=== PATIENT | female | born 1940 | race Caucasian/White ===

== ENCOUNTER → 2018-01-06 12:27 | Outpatient (CLI) | payer MEDICARE, SELFPAY ==
[2018-01-06 14:14] LABS: Absolute Lymphocyte Count 2.08 X10^3/ul (0.83-4.51); Absolute Neutrophil Count 6.2 X10^3/uL (2.0-7.7); Basophil# 0.02 X10^3/uL; Basophil% 0.2 % (0-1); Eosinophil# 0.22 X10^3/uL; Eosinophils% 2.3 % (0-5); Hematocrit 43.7 % (37-47); Hemoglobin 14.3 g/dl (12.0-15.0); Lymphocyte # 2.08 X10^3/ul (4.0); Lymphocyte % 22.2 % (19-41); Mean Corp Hgb Conc 32.7 g/gl (32-36); Mean Corpuscular Volume 94.8 fL (81-99); Mean Platelet Vol. 12.8 fl (6.2-12.0); Monocyte# 0.89 X10^3/uL; Monocyte% 9.5 % (0-10); Neutrophil # 6.17 X10^3/uL (2.7-7.7); Neutrophil % 65.7 % (47-70); Platelet Count 249 K/mm3 (150-450); RBC Distribution Width CV 14.8 % (11.6-14.6); RBC Distribution Width SD 49.4 fl (35.1-43.9); Red Blood Count 4.61 M/mm3 (4.2-5.4); White Blood Count 9.4 K/mm3 (4.4-11.0)
[2018-01-06 14:17] LABS: POSITIVE COUNT NO; POSITIVE DIFFERENTIAL NO; POSITIVE MORPHOLOGY NO
[2018-01-06 14:37] LABS: Albumin, Serum 3.6 g/dL (3.2-5.0)
== END ==
PROVIDERS: Family Provider Family Medicine; PCP Family Medicine; Visit Provider Specialist
DX: Z01.812 Encounter for preprocedural laboratory examination (principal); M16.12 Unilateral primary osteoarthritis, left hip; E11.9 Type 2 diabetes mellitus without complications
CPT/HCPCS: 36415; 82040; 85025

== ENCOUNTER 2018-02-14 08:56 | Inpatient (IN) | payer MEDICARE, SELFPAY ==
[2018-01-30 13:20] VITALS: BP 144/78; PULSE 73; RESP 16; TEMP 36.7; O2SAT 94; BMI 44.6
--- NOTE | 2018-01-30 13:32 | SDCEKG_ITS ---
Test Reason : Blood Pressure : / mmHG Vent. Rate : 058 BPM Atrial Rate : 058 BPM P-R Int : 156 ms QRS Dur : 124 ms QT Int : 436 ms P-R-T Axes : 051 -16 049 degrees QTc Int : 428 ms Sinus bradycardia Left ventricular hypertrophy with QRS widening Cannot rule out Septal infarct , age undetermined Abnormal ECG Confirmed by KOMAL CASTRO, RYAN ([id number]), editor managing director SYLVIA SHAFER ([id number] on 02/03/2018 1:34:19 PM Referred By: Vincent Melchor Confirmed By:RYAN SAUCEDA MD
[2018-01-30 14:18] LABS: Anion Gap 6 (5-15); BUN 21 mg/dL (7-18); BUN/Creat Ratio 26.2 RATIO (10-20); Calcium,Total 9.1 mg/dL (8.5-10.1); Chloride 109 mmol/L (98-107); EST Glomerular Filtration Rate 74 mL/min (>60); Est Glom Filt Rate - Afr Amer 89 mL/min (>60); Estimated Creatinine Clearance 50.85 ml/min; Glucose 131 mg/dL (74-106); Potassium 3.9 mmol/L (3.5-5.1); Sodium Level 141 mmol/L (136-145)
[2018-01-30 14:23] LABS: Hemoglobin A1c 7.3 % (4.2-6.3)
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
[2018-02-14] VITALS (10 sets, daily range): BP systolic 93–154; BP diastolic 58–106; PULSE 76–88; RESP 16–20; TEMP 35.8–36.4; O2SAT 91–97; BMI 44.6; BMI 43.9
--- NOTE | 2018-02-14 07:06 | RAD_ITS ---
STUDY: X-RAY - PELVIS AND LEFT HIP REASON FOR EXAM: Female, 77 years old. Postop TECHNIQUE: Radiological exam, hip, unilateral, with pelvis when performed; 2 or 3 views. COMPARISON: None. FINDINGS: There is a non-specific bowel gas pattern. Normal visualized soft tissue structures. Negative visualized pelvis. Bilateral total hip arthroplasties with a satisfactory appearance. RAD/Hip Min 2 Views (Portable) IMPRESSION: Satisfactory appearance of bilateral hip arthroplasties. Electronically Signed: Josemanuel Cárdenas MD at 15:35 EDT , Service support ,
[2018-02-14] MEDS: Celecoxib 200 MG Capsule 400 MG PO (09:42)
[2018-02-14] MEDS: oxyCODONE HCl Cr 10 MG Tablet PO (09:42)
[2018-02-14] MEDS: Acetaminophen 500 MG Tablet 1000 MG PO ×2 (09:43→22:27)
[2018-02-14 10:36] LABS: Bedside Glucose 164 mg/dL (70-110)
[2018-02-14] MEDS: Cefazolin 2 GM in 0.9% Normal Saline 100 ML IV (11:40)
--- NOTE | 2018-02-14 12:00 | RAD_ITS ---
STUDY: X-RAY - PELVIS AND LEFT HIP REASON FOR EXAM: Female, 77 years old. Intraoperative assessment TECHNIQUE: Two views of the pelvis and hip were obtained. COMPARISON: September 19, 2017 FINDINGS: There is a prosthesis in the proximal left femur. There is a prosthesis in the left acetabulum. There is adequate alignment of the prostheses. Air is present in the surrounding soft tissues. Fluoroscopy time 4.8 seconds. Cumulative dose 1.23 mGy. RAD/Hip 1 view with Pelvis IMPRESSION: Limited images were obtained intraoperatively during left hip arthroplasty. Electronically Signed: Annette Prather MD at 13:55 EDT Tel Direct: [phone], Service support ,
--- NOTE | 2018-02-14 13:31 | PCM.OPRPT ---
Report of Operation Date of Procedure: 02/14/18 Pre-Operative Diagnosis: Left hip primary osteoarthritis Post-Operative Diagnosis: Left hip primary osteoarthritis Surgery/Procedure Performed:: Left direct anterior total hip replacement Description of Surgical Findings:: Stable hip with equal leg lengths boat rental clerk: Delgado Ha Type of Anesthesia:: Spinal Anesthesiologist: Hudson Smith Special Medications: 2 g Ancef, 1 g TXA at incision, 1 g TXA closure, 10 mg Decadron, joint cocktail (5 mg Duramorph, 30 mL of 0.5% Ropivicaine, 1000 units of epinephrine, 30 mg of Toradol) Specimen's removed: Bony cuts Estimated Blood Loss (mL): 250 Fluids Replaced: 1000 mL crystalloid Description of Procedure: Components used: 1. Accolade 2 [place] femoral stem size 4 127? 2. Flip trident acetabular shell size 50 mm 3. Flip X3 polyethylene F 4. [place] Biolox delta 36mm, -5mm femoral head Brief history operative indications: 77 yo f who failed conservative measures for their hip osteoarthritis. X-rays were consistent with osteoarthritis including joint space narrowing, osteophyte formation and subchondral cysts. Total hip replacement was discussed with the patient with risks and benefits including but not limited to blood loss, DVTs, PEs, neurovascular damage, dislocation, general risks of anesthesia including loss of life. Patient demonstrated an understanding medical clearance is obtained the patient was consented for surgery. Procedure: On the date of procedure the patient's L hip was marked in the preoperative area. Patient was then taken back to the operating room where anesthesia assumed control of the C-spine and airway and administered anesthetic. Patient was transferred to the operating table and placed in the supine position. The hips were placed at the break of the bed and a sacral bump was placed. The L lower extremity was then prepped out in a sterile fashion using chlorhexidine while the surgeon scrubbed. The PA was vital in the positioning of the patient. Upon reentering the room the L lower extremity was draped in the standard orthopedic fashion and the incision was marked. A timeout was called and everyone agreed upon the side, the site, the procedure be performed, antibody given, and patient's identity. At this time incision was made through skin, subcutaneous tissue, and fat down to fascia. The fascia was then incised and the TFL was retracted laterally. A retractor was placed on the lateral border of the femoral neck. Attention was directed to the inferior portion of the approach and all crossing vessels were identified and appropriately coagulated. A retractor was then placed on the medial portion of the femoral neck. The anterior capsule was then cleared of all soft tissue and then H shaped capsulotomy was made. The retractors were then placed inside the capsule. The femoral neck was identified and a cleanup cut was made. At this time a power corkscrew was used to remove the femoral head. Attention was then turned toward the acetabulum where the soft tissues were appropriately retracted and the acetabulum was sequentially reamed to 49 mm. A 50 mm cup was then selected and impacted into place. Acetabular liner was impacted into place and locking mechanism was verified. The position of the acetabular cup was then verified under live fluoroscopy. Attention was then turned to the femur. Soft tissue releases on the medial and lateral femoral neck were appropriately done, the leg was externally rotated and lateralized. A Hoff retractor was placed medially and proximally to the greater trochanter this allowed appropriate visualization and exposure of the femoral canal. Rongeour was then used to remove excess lateral bone. A canal finder and entry broach were used to open the proximal canal. Once we verified we were down the femoral canal we subsequently broached up to a size 4 femur. The appropriate neck was placed in the previously selected head was trialed with a -5 mm neck. Traction was pulled and the hip was reduced with internal rotation. Once it was appropriately reduced and stability was checked. There was minimal shuck, equal leg lengths and appropriate stability with hyperextension and external rotation as well as with 90? flexion and internal rotation. Fluoroscopy was then also used to verify the position of the components and leg lengths using the contralateral side for comparison. The trial components were then dislocated the proximal femur was again exposed and the components were removed from the wound. The final components were verified and opened. The wound was copiously irrigated out with normal saline. The acetabulum was checked for any residual debris. The final components were placed and impacted. Traction and internal rotation were again used to reduce the hip. After adequate reduction the hip remained stable with appropriate leg lengths. The final components were once again checked with live fluoroscopy and were found to be satisfactory. The wound was then copiously irrigated with normal saline once more, and hemostasis was obtained. Closure was then done using #1 Vicryl runner to close the fascia. A 2-0 vicryl interuppted sutures were used to close the subcutaneous skin. A 3-0 Monocryl and Steri-Strips were used for final skin closure. A Silverlon dressing was placed. Patient was awakened by anesthesia and transferred to the [facility]. Patient was then transferred to the PACU for recovery. Postoperative plan: Patient will get 24 hours postop antibiotics. Patient will get in-house physical therapy and will be weight-bear as tolerated. Patient will follow up in office in 2 weeks for a wound check and x-rays. During the course of the procedure the physician retail assistant manager played a vital role. His intimate knowledge of my steps in the procedure aided in safe and expedient completion of the procedure. The PA played a vital rolls in positioning particularly in obtaining the appropriate positioning of the sacral bump. The PA was also vital in the retraction of soft tissues during the exposure and especially the femoral work as this is a vital part of the procedure to prevent complications and fractures. The PA was also vital and protecting soft tissues during times of bony cuts and reaming. He also played a vital role in closure with my direct supervision. The PA was also important during reduction and dislocation of the joint and trials intraoperatively. Grafts/Implants Used: [place] - Complications None - Admit VTE Documentation VTE Present on Admission: No VTE Mechan Device Prophylaxis: SCD's, Thigh High JORDIN Hose VTE Pharm Prophylaxis ordered?: Yes
[2018-02-14] MEDS: Bacitracin 500 UNITS/GM PACKET (13:51)
[2018-02-14 15:01] LABS: Bedside Glucose 220 mg/dL (70-110)
[2018-02-14] MEDS: Glimepiride 4 MG Tablet PO (17:24)
[2018-02-14] MEDS: Glucerna Shake 120 ML LIQUID PO (17:30)
[2018-02-14 17:55] LABS: Bedside Glucose 260 mg/dL (70-110)
[2018-02-14] MEDS: Lactated Ringers 1,000 ML 125 ML IV (19:27)
[2018-02-14] MEDS: Cefazolin 1 GM/50 ML BAG IV (20:04)
[2018-02-14] MEDS: Aspirin 325 MG Tablet PO (22:26)
[2018-02-14] MEDS: Oxybutynin 5 MG Tablet PO (22:26)
[2018-02-14] MEDS: Senna/Docusate Sodium 1 Tablet 2 TABLET PO (22:27)
[2018-02-14 22:41] LABS: Bedside Glucose 374 mg/dL (70-110)
[2018-02-15 02:48] VITALS: BP 136/70; PULSE 76; RESP 18; TEMP 36.5; O2SAT 97
[2018-02-15] MEDS: Cefazolin 1 GM/50 ML BAG IV (03:01)
[2018-02-15] MEDS: Lactated Ringers 1,000 ML 125 ML IV (04:18)
[2018-02-15] MEDS: Acetaminophen 500 MG Tablet 1000 MG PO ×2 (05:13→13:43)
[2018-02-15 05:55] LABS: Hematocrit 35.6 % (37-47); Hemoglobin 11.6 g/dl (12.0-15.0); Mean Corp Hgb Conc 32.6 g/gl (32-36); Mean Corpuscular Volume 95.2 fL (81-99); Mean Platelet Vol. 12.2 fl (6.2-12.0); Platelet Count 215 K/mm3 (150-450); RBC Distribution Width CV 14.1 % (11.6-14.6); RBC Distribution Width SD 47.2 fl (35.1-43.9); Red Blood Count 3.74 M/mm3 (4.2-5.4); White Blood Count 15.3 K/mm3 (4.4-11.0)
[2018-02-15 06:03] LABS: Scan Indicated on CBC? Y/N NO
[2018-02-15 06:25] LABS: Anion Gap 9 (5-15); BUN 24 mg/dL (7-18); Calcium,Total 8.5 mg/dL (8.5-10.1); Chloride 105 mmol/L (98-107); EST Glomerular Filtration Rate 57 mL/min (>60); Est Glom Filt Rate - Afr Amer 69 mL/min (>60); Estimated Creatinine Clearance 40.68 ml/min; Glucose 237 mg/dL (74-106); Potassium 4.4 mmol/L (3.5-5.1); Sodium Level 137 mmol/L (136-145)
--- NOTE | 2018-02-15 07:12 | PN.ORTHO_ITS ---
Subjective: The patient was sitting in bedside chair upon examination. Patient denies any chest pain, shortness of breath, dizziness, lightheadedness, nausea or vomiting , or calf pain. Pain is controlled on medications. No adverse overnight events. Overall patient is doing very well. Patient only complains of some achiness in the left thigh. Patient states she does wish to try to go home today if pain is controlled and tolerates physical therapy. Objective: Vital signs stable and afebrile. Patient is able to plantarflex and dorsiflex actively. Sensation is intact to light touch to saphenous, sural, superficial and deep peroneal, and tibial distribution. Dressing is clean dry and intact. Negative Homans bilaterally, negative signs and symptoms of DVT. - Physical Exam General: Alert, Oriented x3, Cooperative, No apparent distress Vital Signs Temp Pulse Resp BP Pulse Ox 97.7 F L 76 18 136/70 H 97 02/15/18 02:48 02/15/18 02:48 02/15/18 02:48 02/15/18 02:48 02/15/18 02:48 Oxygen Flow Rate (L/min) 2 Oxygen Delivery Method Room Air Weight: 116.12 kg Body Mass Index (BMI) 43.9 Finger Stick Blood Glucose 220 Intake and Output for Last 24 Hours 02/13/18 02/14/18 02/15/18 23:59 23:59 23:59 Intake Total 1850 / 1850 2262 / 2262 Balance 1849 / 1849 2262 / 2262 Laboratory Tests Past 24 Hrs 02/15/18 02/15/18 05:38 05:38 WBC 15.3 H RBC 3.74 L Hgb 11.6 L Hct 35.6 L MCV 95.2 MCH 31.0 MCHC 32.6 RDW 14.1 RDW Differential 47.2 H Plt Count 215 MPV 12.2 H Sodium 137 Potassium 4.4 Chloride 105 Carbon Dioxide 23.0 Anion Gap 9 BUN 24 H Creatinine 1.00 Estim Creat Clear Calc 40.68 Est GFR (MDRD) Af Amer 69 Est GFR (MDRD) Non-Af 57 L BUN/Creatinine Ratio 24.0 H Glucose 237 H Calcium 8.5 POC Glucose 02/14/18 02/14/18 02/14/18 22:33 17:22 14:53 POC Glucose 374 H 260 H 220 H 02/14/18 09:38 POC Glucose 164 H Medical Necessity - Tobacco Use Smoking Status: Never smoker Assessment/Plan 1. S/P direct anterior left total hip arthroplasty POD #1 2. Continue Pain Medications: Tylenol and OxyIR 3. DVT Prophylaxis: Aspirin 325 mg twice daily 4. PT/OT: Weightbearing as tolerated 5. H & H: 11.6/35.6, asymptomatic 6. Leukocytosis: Currently 15.3, afebrile. Patient did receive Decadron intraoperatively. 7. Encouraged Incentive Spirometry 8. Disposition: Orthopedically doing well. Patient pain has been well controlled. Plan will be for possible discharge home this afternoon if pain continues to be controlled and patient tolerates physical therapy. Prescriptions are attached to the chart. Patient will follow-up per postop instructions.
--- NOTE | 2018-02-15 07:15 | PCM.DC.THR ---
Discharge Diet: 1800 Calorie Control Diet Discharge Activity: May Not Drive - while taking narcotic pain medications. May shower in (days): 1 - Turned dressing away from water Ice area for (Minutes): 20 - Every 1-2 hours Weight Bearing Status: Weight bearing as tolerated Additional Activity Instructions:: Wear elastic stockings for 2 weeks. DO NOT use alcohol with narcotic pain medication. DO NOT make important decisions while taking narcotic medication. If you have problems with taking your medication (rash, itching, nausea, etc.) call the office at once. Call your doctor if your incision/area has: Increased Pain/ Swelling, Increased Redness, Foul Smelling Discharge Call your doctor if you observe: Fever of 101 or Higher Remove Dressing in (days):: 4 - Okay to change dressing on February 19, 2018 Additional Instructions: Follow-up per [facility] postop instructions Do not take baby aspirin while taking regular dose aspirin Do not take tramadol while taking oxycodone Allergies/Adverse Reactions: Allergies No Known Allergies Allergy (Verified 01/30/18 13:04) Medications to take at Discharge Glimepiride [Amaryl] 4 mg PO BID 01/30/18 L.acidoph,Paracasei, B.lactis [Probiotic] 1 each PO BID 01/30/18 Multivit with Calcium,Iron,Min [Multiple Vitamins For Women] 1 each PO DAILY 01/30/18 Oxybutynin [Ditropan] 5 mg PO BID 02/14/18 Acetaminophen [Tylenol] 1,000 mg PO Q8 #90 tab 02/15/18 Aspirin 325 mg PO BIDCM #30 tab 02/15/18 Famotidine [Pepcid] 20 mg PO DAILY #30 tab 02/15/18 Oxycodone [Oxyir] 5 - 10 mg PO Q4H PRN PRN 5 Days #60 tab 02/15/18 Senna/Docusate Sodium [Senokot-S] 2 tab PO BID #20 tab 02/15/18 The following prescriptions were given: Oxycodone [Oxyir] 5 - 10 mg PO Q4H PRN PRN 5 Days #60 tab PRN Reason: Mod-Severe Pain (4-08/30) Acetaminophen [Tylenol] 1,000 mg PO Q8 #90 tab Famotidine [Pepcid] 20 mg PO DAILY #30 tab Aspirin 325 mg PO BIDCM #30 tab Senna/Docusate Sodium [Senokot-S] 2 tab PO BID #20 tab Primary Care Physician: Tim Lozada MD [Primary Care Provider] - Please Follow Up With: home health physical therapy Please Follow Up With: Delgado Ha PA-C When: 02/27/18 @ 10:00 am
--- NOTE | 2018-02-15 07:19 | DCINST_ITS ---
Discharge Diet: 1800 Calorie Control Diet Discharge Activity: May Not Drive - while taking narcotic pain medications. May shower in (days): 1 - Turned dressing away from water Ice area for (Minutes): 20 - Every 1-2 hours Weight Bearing Status: Weight bearing as tolerated Additional Activity Instructions:: Wear elastic stockings for 2 weeks. DO NOT use alcohol with narcotic pain medication. DO NOT make important decisions while taking narcotic medication. If you have problems with taking your medication (rash, itching, nausea, etc.) call the office at once. Call your doctor if your incision/area has: Increased Pain/ Swelling, Increased Redness, Foul Smelling Discharge Call your doctor if you observe: Fever of 101 or Higher Remove Dressing in (days):: 4 - Okay to change dressing on February 19, 2018 Additional Instructions: Follow-up per [facility] postop instructions Do not take baby aspirin while taking regular dose aspirin Do not take tramadol while taking oxycodone Allergies/Adverse Reactions: Allergies No Known Allergies Allergy (Verified 01/30/18 13:04) Medications to take at Discharge Glimepiride [Amaryl] 4 mg PO BID 01/30/18 L.acidoph,Paracasei, B.lactis [Probiotic] 1 each PO BID 01/30/18 Multivit with Calcium,Iron,Min [Multiple Vitamins For Women] 1 each PO DAILY 11/07 Oxybutynin [Ditropan] 5 mg PO BID 02/14/18 Acetaminophen [Tylenol] 1,000 mg PO Q8 #90 tab 02/15/18 Aspirin 325 mg PO BIDCM #30 tab 02/15/18 Famotidine [Pepcid] 20 mg PO DAILY #30 tab 02/15/18 Oxycodone [Oxyir] 5 - 10 mg PO Q4H PRN PRN 5 Days #60 tab 02/15/18 Senna/Docusate Sodium [Senokot-S] 2 tab PO BID #20 tab 02/15/18 The following prescriptions were given: Oxycodone [Oxyir] 5 - 10 mg PO Q4H PRN PRN 5 Days #60 tab PRN Reason: Mod-Severe Pain (4-08/30) Acetaminophen [Tylenol] 1,000 mg PO Q8 #90 tab Famotidine [Pepcid] 20 mg PO DAILY #30 tab Aspirin 325 mg PO BIDCM #30 tab Senna/Docusate Sodium [Senokot-S] 2 tab PO BID #20 tab Primary Care Physician: Tim Lozada MD [Primary Care Provider] - Please Follow Up With: home health physical therapy Please Follow Up With: Delgado Ha PA-C When: 02/27/18 @ 10:00 am
[2018-02-15 07:20] LABS: Bedside Glucose 207 mg/dL (70-110)
[2018-02-15 08:18] VITALS: BP 139/48; PULSE 76; RESP 16; TEMP 36.9; O2SAT 98
[2018-02-15] MEDS: Oxybutynin 5 MG Tablet PO (08:25)
[2018-02-15] MEDS: Glimepiride 4 MG Tablet PO ×2 (08:25→17:57)
[2018-02-15] MEDS: Aspirin 325 MG Tablet PO ×2 (08:25→17:57)
[2018-02-15] MEDS: Senna/Docusate Sodium 1 Tablet 2 TABLET PO (08:25)
[2018-02-15] MEDS: Famotidine 20 MG Tablet PO (08:25)
[2018-02-15] MEDS: Glucerna Shake 120 ML LIQUID PO (08:27)
[2018-02-15] MEDS: Multivitamins,Ther W-Minerals Tablet 1 TABLET PO (11:29)
[2018-02-15 11:45] LABS: Bedside Glucose 165 mg/dL (70-110)
[2018-02-15 13:37] VITALS: BP 149/59; PULSE 61; RESP 18; TEMP 36.4; O2SAT 98
--- NOTE | 2018-02-15 14:00 | CASEMGMT ---
JOSE LUIS DORSEY received call from MARINE Ha regarding discharge plans. JOSE LUIS DORSEY updated MARINE Ha that patient plans to discharge home with outpatient therapy at home and that order was requested to be sent to [facility]. MARINE Ha requested that RN CM call [facility] to inquire when patient will be seen. RN WILLIAN called [facility] and talked with Sherrie. Sherrie stated that she attempted to call patient and left voicemail to setup appt. Sherrie states that they have an opening on 02/17/18 9am. This RN CM inquired with patient if that appt for outpatient therapy would work for her and patient agreed to appt. RN WILLIAN made appt with [facility] for 02/17/18 at 0900 to establish outpatient therapy. JOSE LUIS DORSEY called and left MARINE Ha to update on first therapy appt.
--- NOTE | 2018-02-15 15:38 | CASEMGMT ---
Addendum entered by Taryn Gusman 02/15/18 15:41: Time of assesment for 0941. Original Note: JOSE LUIS DORSEY Face to Face with patient for initial transition planning/care coordination assessment. JOSE LUIS DORSEY introduced self and role at [facility]. Patient sitting in chair, alert and oriented. Patient willing to participate in assessment and is able to answer all questions appropriately. Care providers, pharmacy, and demographics verified. See link attached. Patient wishes to discharge home and is requesting outpatient therapy at [facility] and to utilize [facility] transportation. JOSE LUIS DORSEY informed patient that she will request order from Dr. Melchor's office for outpatient therapy. Pt states she has no further needs or concerns at this time. JOSE LUIS DORSEY called [facility] and requested order be sent to [facility] for outpatient therapy. CM to follow for discharge planning needs that may arise. Disposition Plan: Patient to discharge home with outpatient therapy, family support, and follow-up plans in place.
[2018-02-15 16:21] LABS: Bedside Glucose 90 mg/dL (70-110)
--- NOTE | 2018-02-15 16:31 | NURSING ---
late entry- 1400- pt requesting to have scop patch removed- this RN removed and cleansed skin. Pt reported very dry mouth.
== END 2018-02-15 18:54 | disposition home or self-care (01) | DRG 470 ==
LOC: MS3 08:57
PROVIDERS: Admitting Provider Specialist; Family Provider Family Medicine; PCP Family Medicine; Visit Provider Specialist
PROC: 0SRB04A Replacement of Left Hip Joint with Ceramic on Polyethylene Synthetic Substitute, Uncemented, Open Approach (ICD-10-PCS; CPT 27284; principal; 2018-02-14 10:55)
DX: M16.12 Unilateral primary osteoarthritis, left hip (principal); E11.8 Type 2 diabetes mellitus with unspecified complications; Z79.84 Long term (current) use of oral hypoglycemic drugs
CPT/HCPCS: 36415; 73501; 73502; 76000; 80048; 82962; 83036; 85027; 87077; 87081; 97110; 97116; 97162; 97166; 97530; 97535; 99251; J7120; G0463

== ENCOUNTER → 2018-02-23 15:14 | Outpatient (CLI) | payer MEDICARE, SELFPAY ==
--- NOTE | 2018-02-23 15:17 | VDLE_ITS ---
Reason For Study: LEG SWELLING RIGHT LEFT CFV is compressible, spontaneous, phasic, GSV is normal. competent and demonstrates normal CFV is compressible, spontaneous, phasic, augmentation. competent, and demonstrates normal Procedure augmentation. Exam performed in department. FV is compressible, spontaneous, phasic, A preliminary report was called and/or faxed competent and demonstrates normal to Dr. Conway. augmentation. POP V is compressible, spontaneous, phasic, competent and demonstrates normal augmentation. T/P Trunk is compressible. PTV is compressible. LT PerV is compressible. Interpretation Summary Deep veins of the left lower extremity are patent and compressible segmentally. There is no evidence of left lower extremity deep vein thrombosis. Valvular competence appears intact within the proximal deep venous system on the left . The left greater saphenous vein appears patent and compressible segmentally. Ordering Physician: Pk Conway Referring Physician: Tim Lozada Performed By: Lacey Le RVT
== END ==
PROVIDERS: Family Provider Family Medicine; PCP Family Medicine; Visit Provider Family Medicine
DX: M79.89 Other specified soft tissue disorders (principal)
CPT/HCPCS: 93971

== ENCOUNTER → 2018-02-24 14:39 | Outpatient (CLI) | payer MEDICARE, SELFPAY | PROVIDERS: Family Provider Family Medicine; PCP Family Medicine; Visit Provider Family Medicine | DX: R19.7 Diarrhea, unspecified (principal) | CPT/HCPCS: 83630; 87177; 87209; 87493; 87506 ==

== ENCOUNTER 2018-05-03 09:30 | Outpatient (RCR) | payer MEDICARE, SELFPAY ==
--- NOTE | 2018-02-17 09:59 | HP.PTEVAL ---
Patient's Visit Information YECENIA LAZAR is a 77 year old F referred to Physical Therapy by MD CHARAN Mckinley with a diagnosis of L SREE. Date of Evaluation: 02/17/18 Physical Therapist: Rodolfo Powell PT, - Visit Plan Frequency: 2-3x /Week Duration: 4-6 Weeks Plan: L hip stretching and strengthening, balance and proprio, gait training, nustep, and HEP - Subjective Subjective: DOS: 02/14/18. Pt notes a chronic Hx of L hip pain for several years. Pt notes she is much more functional now and can walk much more upright secondary to having this surgery. No sleep diff with pain meds. No T or N in L LE. Pt reports she had a R SREE performed several years ago. Pt reports she lives with family. No steps in this house. 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 Pt reports her major goal is to be able to drive her grandkids to school [place]. 1/10 pain at rest, 6/10 at worst (walking fast). Pt has used a walker for the past couple years due to pain. No Hx of falls. - Pain L hip Pain Intensity (Out of 10): 1 Pain Intensity Range: 6 - Objective Neuro: B LE sensation is WNL to light touch. B pat tendon reflex= 1/3. ROM: L LE is moderately limited. MMT: R LE 5/5 throguhout. L LE 3/5 throughout and painful. Gait: Pt was able to walk from the waiting room to the treatment room approx 120' until having to rest. Pt uses a walker for AD. - Goals Goal 1:: Decrease L hip pain x 50% to aid with sleep Goal Time Frame: 4-6 Weeks Goal 2:: Increase L hip strength x 1 grade to aid with IADL's Goal Time Frame: 4-6 Weeks Goal 3:: Pt will be able to ambulate greater than 300 feet with LRD to aid with community ambulation Goal Time Frame: 4-6 Weeks Goal 4:: I with HEP Goal Time Frame: 4-6 Weeks - Rehabilitation Potential Physical Therapy Diagnosis: L hip pain, weakness, and limited gait distance secondary to L SREE Rehabilitation Potential: Good - Anticipated Interventions Patient/Client Instruction: Educate patient on: Condition, Plan of Care For the Purpose of:: To improve self management Therapeutic Exercise to Include: Strength training, Endurance training, Balance training, Gait and locomotor training, Dynamic Lumbar Stabilization For the Purpose of:: To decrease pain, To increase ROM, To improve muscle performance and motor function Cryotherapy (ice pack, ice massage): Yes For the Purpose of:: To decrease pain Thank you for the opportunity to evaluate your patient. For Medicare and Medicare HMO plans, please review the plan of care and approve it. It will need to be FAXED BACK to us at [phone] for Medicare purposes. Please let me know if there are questions or concerns regarding this plan of care. Physician Signature: Date:
--- NOTE | 2018-02-17 10:04 | HP.PTEVAL_ITS ---
Patient's Visit Information YECENIA LAZAR is a 77 year old F referred to Physical Therapy by MD CHARAN Mckinley with a diagnosis of L SREE. Date of Evaluation: 02/17/18 Physical Therapist: Rodolfo Powell PT, - Visit Plan Frequency: 2-3x /Week Duration: 4-6 Weeks Plan: L hip stretching and strengthening, balance and proprio, gait training, nustep, and HEP - Subjective Subjective: DOS: 02/14/18. Pt notes a chronic Hx of L hip pain for several years. Pt notes she is much more functional now and can walk much more upright secondary to having this surgery. No sleep diff with pain meds. No T or N in L LE. Pt reports she had a R SREE performed several years ago. Pt reports she lives with family. No steps in this house. 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 Pt reports her major goal is to be able to drive her grandkids to school [place]. 1 /10 pain at rest, 6/10 at worst (walking fast). Pt has used a walker for the past couple years due to pain. No Hx of falls. - Pain L hip Pain Intensity (Out of 10): 1 Pain Intensity Range: 6 - Objective Neuro: B LE sensation is WNL to light touch. B pat tendon reflex= 1/3. ROM: L LE is moderately limited. MMT: R LE 5/5 throguhout. L LE 3/5 throughout and painful. Gait: Pt was able to walk from the waiting room to the treatment room approx 120' until having to rest. Pt uses a walker for AD. - Goals Goal 1:: Decrease L hip pain x 50% to aid with sleep Goal Time Frame: 4-6 Weeks Goal 2:: Increase L hip strength x 1 grade to aid with IADL's Goal Time Frame: 4-6 Weeks Goal 3:: Pt will be able to ambulate greater than 300 feet with LRD to aid with community ambulation Goal Time Frame: 4-6 Weeks Goal 4:: I with HEP Goal Time Frame: 4-6 Weeks - Rehabilitation Potential Physical Therapy Diagnosis: L hip pain, weakness, and limited gait distance secondary to L SREE Rehabilitation Potential: Good - Anticipated Interventions Patient/Client Instruction: Educate patient on: Condition, Plan of Care For the Purpose of:: To improve self management Therapeutic Exercise to Include: Strength training, Endurance training, Balance training, Gait and locomotor training, Dynamic Lumbar Stabilization For the Purpose of:: To decrease pain, To increase ROM, To improve muscle performance and motor function Cryotherapy (ice pack, ice massage): Yes For the Purpose of:: To decrease pain Thank you for the opportunity to evaluate your patient. For Medicare and Medicare HMO plans, please review the plan of care and approve it. It will need to be FAXED BACK to us at [phone] for Medicare purposes. Please let me know if there are questions or concerns regarding this plan of care. Physician Signature: Date:
--- NOTE | 2018-06-28 07:36 | HP.PT.NRP ---
HP - Discharge Summary (1) - Patient Information YECENIA LAZAR was seen in my office for initial evaluation on 02/17/18. The following Plan of Care was established for this patient: Initial Frequency: 2-3x /Week Initial Duration: 4-6 Weeks - Anticipated Interventions Patient/Client Instruction: Educate patient on: Condition, Plan of Care For the Purpose of:: To improve self management Therapeutic Exercise to Include: Strength training, Endurance training, Balance training, Gait and locomotor training, Dynamic Lumbar Stabilization For the Purpose of:: To decrease pain, To increase ROM, To improve muscle performance and motor function Cryotherapy (ice pack, ice massage): Yes For the Purpose of:: To decrease pain This patient was last seen in our office . Pertinent comments regarding their Physical therapy will appear below: Pt cancelled her PT appt on the date of 05/17/18 secondary to illness, and has not returned through todays date. Pt is therefore discontinued at this time. At this point I will be discontinuing this patient from physical therapy. I would be happy to see this patient again in the future if found appropriate by the physician. Thank you! Rodolfo Powell, PT,
== END 2018-05-03 19:00 | disposition home or self-care (01) ==
LOC: PT 09:30
PROVIDERS: Family Provider Family Medicine; PCP Family Medicine; Visit Provider Specialist
DX: M16.12 Unilateral primary osteoarthritis, left hip (principal)
CPT/HCPCS: 97110; 97116; 97161; 97530

== ENCOUNTER → 2018-06-07 10:30 | Outpatient (CLI) | payer MEDICARE, SELFPAY ==
[2018-06-07 13:06] LABS: AST(SGOT) 20 U/L (15-37); Alanine Aminotransfer ALT/SGPT 17 U/L (13-56); Albumin, Serum 3.3 g/dL (3.2-5.0); Alkaline Phosphatase 103 U/L (45-117); Anion Gap 7 (5-15); BUN 20 mg/dL (7-18); BUN/Creat Ratio 22.9 RATIO (10-20); Bilirubin, Direct 0.06 mg/dL (0.00-0.30); Chloride 107 mmol/L (98-107); Cholesterol 194 mg/dL (200); Creatinine, Serum 0.87 mg/dL (0.55-1.02); EST Glomerular Filtration Rate 67 mL/min (>60); Est Glom Filt Rate - Afr Amer 81 mL/min (>60); Globulin 4.1 g/dL (2.2-4.2); Glucose 158 mg/dL (74-106); High Density Lipoprotein 53 mg/dL; Potassium 4.3 mmol/L (3.5-5.1); Protein, Total 7.4 g/dL (6.4-8.2); Sodium Level 141 mmol/L (136-145); Triglycerides 238 mg/dL; Very Low Density Lipoprotein 48 mg/dL (5-40)
[2018-06-07 13:15] LABS: Microalbumin,Random Urine 9.6 mg/L (NO RANGE EST.); Microalbumin:Creatinine Ratio 17.9 mg/g CRE (<30 mg/g CRE)
== END ==
PROVIDERS: Family Provider Family Medicine; PCP Family Medicine; Visit Provider Family Medicine
DX: E11.9 Type 2 diabetes mellitus without complications (principal)
CPT/HCPCS: 36415; 80048; 80061; 80076; 82043; 82570

== ENCOUNTER 2018-09-01 13:11 | Observation (INO) | payer MEDICARE, SELFPAY ==
[2018-09-01] VITALS (13 sets, daily range): BP systolic 134–180; BP diastolic 48–93; PULSE 70–91; RESP 14–20; TEMP 35–36.8; O2SAT 93–97; BMI 47.0; BMI 44.9
--- NOTE | 2018-09-01 14:28 | CT_ITS ---
STUDY: CT BRAIN WITHOUT CONTRAST REASON FOR EXAM: Female, 78 years old. TIA slurred speech status post fall RADIATION DOSAGE (If Supplied By Facility): CTDIvol = ( 44.99 ) mGy, DLP = ( 745.49 ) mGycm TECHNIQUE: Transaxial CT imaging of the brain was performed without administration of intravenous contrast material. Individualized dose optimization techniques were used for this CT. COMPARISON: None. FINDINGS: Normal soft tissue structures. Normal calvarium. There is mild cerebral atrophy with widening of the extra-axial spaces and ventricular dilatation. There are areas of decreased attenuation within the white matter tracts of the supratentorial brain, consistent with microvascular disease changes. Normal basal ganglia and thalami. Normal brainstem. There is mild cerebellar atrophy. There is no intracranial hemorrhage. There are no findings of an acute ischemic infarction. Normal visualized paranasal sinuses. CT/Brain/Head without Contrast IMPRESSION: Mild atrophy no visualized evidence of acute hemorrhage or infarct or edema. Electronically Signed: Meghan Gill MD at 16:17 EDT Tel , Service support ,
--- NOTE | 2018-09-01 14:28 | EKG12_ITS ---
Test Reason : NEURO S/SX Blood Pressure : / mmHG Vent. Rate : 082 BPM Atrial Rate : 082 BPM P-R Int : 160 ms QRS Dur : 142 ms QT Int : 412 ms P-R-T Axes : 050 003 147 degrees QTc Int : 481 ms Normal sinus rhythm with sinus arrhythmia Possible Left atrial enlargement Left bundle branch block Abnormal ECG Confirmed by KOMAL CASTRO, RYAN ([id number]), field map editor SYLVIA SHAFER ([id number]) on 09/04/2018 3:10:58 PM Referred By: YANA/WILEY Confirmed By:RYAN SAUCEDA MD
--- NOTE | 2018-09-01 14:28 | RAD_ITS ---
STUDY: X-RAY CHEST REASON FOR EXAM: Female, 78 years old. Pain TECHNIQUE: Single AP portable view of the chest. COMPARISON: None. FINDINGS: There is mild peribronchial thickening. There is interstitial thickening and small space lucency suspicious for possible emphysematous change. There is a 5.4 mm nodule in the left upper lobe. There is no demonstrated pleural abnormality. Normal size heart. Normal mediastinum and ishmael. Normal visualized pulmonary arteries. Normal visualized aortic arch and descending thoracic aorta. There are diffuse degenerative changes of the visualized thoracic spine. Normal visualized ribs, clavicles, and shoulders. There is no demonstrated abnormality of the visualized soft tissue structures of the upper abdomen. RAD/Chest 1 View IMPRESSION: Mild peribronchial thickening suggestive of possible central bronchiectasis and/or bronchitis. There is a least one indeterminate nodule within the left upper lobe that measures 5.4 mm. In comparison to prior study is recommended for consideration for follow-up noncontrast chest CT. Findings are suspicious for underlying chronic lung disease. Mild cardiomegaly. No definitive focal consolidation. Electronically Signed: Meghan Gill MD at 15:53 EDT Tel , Service support ,
[2018-09-01 14:30] LABS: Bedside Glucose 161 mg/dL (70-110)
[2018-09-01] MEDS: 0.9% Normal Saline 1,000 ML 100 ML IV (14:50)
[2018-09-01 15:16] LABS: Absolute Lymphocyte Count 2.34 X10^3/ul (0.83-4.51); Absolute Neutrophil Count 7.4 X10^3/uL (2.0-7.7); Basophil# 0.02 X10^3/uL; Basophil% 0.2 % (0-1); Eosinophil# 0.29 X10^3/uL; Eosinophils% 2.7 % (0-5); Hematocrit 41.8 % (37-47); Hemoglobin 13.2 g/dl (12.0-15.0); Lymphocyte # 2.34 X10^3/ul (4.0); Lymphocyte % 21.5 % (19-41); Mean Corp Hgb Conc 31.6 g/gl (32-36); Mean Corpuscular Hgb 29.8 pg (27.0-32.0); Mean Corpuscular Volume 94.4 fL (81-99); Monocyte# 0.76 X10^3/uL; Neutrophil # 7.44 X10^3/uL (2.7-7.7); Neutrophil % 68.4 % (47-70); Platelet Count 245 K/mm3 (150-450); RBC Distribution Width CV 14.8 % (11.6-14.6); RBC Distribution Width SD 50.6 fl (35.1-43.9); Red Blood Count 4.43 M/mm3 (4.2-5.4); White Blood Count 10.9 K/mm3 (4.4-11.0)
[2018-09-01 15:22] LABS: POSITIVE COUNT NO; POSITIVE DIFFERENTIAL NO; POSITIVE MORPHOLOGY NO
[2018-09-01 15:33] LABS: Prothrombin Time (Protime)PT. 13.5 SECONDS (11.7-14.9)
[2018-09-01 15:34] LABS: Partial Thromboplast Time 28.8 Seconds (24.1-36.2)
[2018-09-01 15:38] LABS: Anion Gap 6 (5-15); BUN 22 mg/dL (7-18); BUN/Creat Ratio 23.4 RATIO (10-20); Calcium,Total 9.2 mg/dL (8.5-10.1); Chloride 106 mmol/L (98-107); Creatinine, Serum 0.94 mg/dL (0.55-1.02); EST Glomerular Filtration Rate 61 mL/min (>60); Est Glom Filt Rate - Afr Amer 74 mL/min (>60); Glucose 170 mg/dL (74-106); Potassium 4.1 mmol/L (3.5-5.1); Sodium Level 139 mmol/L (136-145)
--- NOTE | 2018-09-01 15:43 | ED.RN ---
PER LAUREN CASTRO TO D/C [facility] AFTER THREE ZERO RESULTS.
--- NOTE | 2018-09-01 16:11 | ED.VISSUMM ---
- ER Visit Summary Date of Service: 09/01/18 Chief Complaint: [Paresthesias and speech difficulty] History of Present Illness: The patient is a 78 F [presents to the emergency department with complaint of paresthesias in her hands that is bilateral in which she has had for some time. 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 Patient's daughter is with her in the room and her concern was that patient had slurred speech this morning around 7:15 AM and she appear to have a right-sided facial droop. Patient herself states that she spent 20 minutes in the bedroom trying to get her bra on and just did not feel like her hands were working right. Patient denies any headache. Patient denies any falls other than she was leaning up against a chair this morning when it started to slide and she went down onto her knees and then turn herself onto her buttocks but she did not sustain any injury. Patient had to call EMS to help her up. At this time patient denies any focal weakness. Patient denies any visual changes. Slurred speech is mostly resolved now per family.] Physical Examination: [HEENT-PERRLA, EOMI. Cranial nerves II through XII grossly intact. TMs clear. Mucous membranes moist. No adenopathy. Cardiovascular-regular rate and rhythm without murmur or ectopy Lungs-clear to auscultation, chest wall stable without crepitus or subcu emphysema Abdomen-normoactive bowel sounds, soft, nontender, no rebound or rigidity, no peritoneal signs. Neuro thbg-flhkpa-ghvo and heel li testing within normal limits, negative Romberg, negative for drift, fundi benign. NIH stroke scale 0. Extremities-intact ?4, normal range of motion, normal pulses, atraumatic] Test Results: [CBC with differential obtained shows sinus rhythm with a left bundle branch block. Ventricular rate was 82 bpm. CBC with differential count of 10.9, hemoglobin 13, hematocrit 42, platelets 245. Chemistries unremarkable. INR was 1.0. Chest x-ray showed nothing acute. CT scan of the brain without contrast showed chronic changes nothing acute.] Emergency Department Course and Treatment: [] Treatment Plan: [Admit for further workup and evaluation of suspected TIA] Disposition: Admit [] Impression: [TIA] This note was generated with [employer] software. It may contain incorrect words, spelling, and punctuation that were not noted in review of the chart prior to signing ED Disposition - Plan for ED Patient: Chief Complaint: Neuro S/Sx Referrals: Tim Lozada MD [Primary Care Provider] -
--- NOTE | 2018-09-01 16:22 | PCM.HP.STD ---
Problem List (1) Hypertension Status: Chronic Qualifiers: Hypertension type: essential hypertension Qualified Code(s): I10 - Essential (primary) hypertension (2) Type II diabetes mellitus Status: Acute Qualifiers: Diabetes mellitus shelter insulin use: without shelter use Diabetes mellitus complication status: with unspecified complications Qualified Code(s): E11.8 - Type 2 diabetes mellitus with unspecified complications (3) Morbid obesity Status: Chronic (4) TIA (transient ischemic attack) Status: Acute History of Present Illness Date of Admission: 09/01/18 Chief Complaint: Slurred speech The patient is a 78 year old F with past medical history of type II DM, hypertension, obesity who comes in with complaints of slurred speech ongoing since this morning. Patient lives at home with her daughter and was noted to have slurred speech and right-sided facial droop at 7:15 AM. Patient was reluctant to come to the hospital. Denied any weakness in any part of her body. She typically ambulates with a wheeled walker. Denied any dizziness or chest pain or shortness of breath. Rales in the ED showed temperature of 90 7.8F, heart rate of 91, blood pressure was 180/92, improved to less than 139/48, respiratory rate was 18, SPO2 was 97% on room air CT scan of the head showed atrophy, no acute hemorrhage or infarct seen. Chest x-ray shows no acute cardiopulmonary process. EKG showed left bundle branch block which is new compared to her previous Admitting blood work was essentially unremarkable. Blood glucose was 170, troponins were negative Past Medical History Past Medical History (Chronic Problems): Chronic Problems Hypertension (Chronic) Morbid obesity (Chronic) Allergies No Known Allergies Allergy (Verified 09/01/18 13:14) Home Medications: Ambulatory Orders Medication Instructions Recorded Glimepiride [Amaryl] 4 mg PO BID 01/30/18 L.acidoph,Paracasei, B.lactis 1 each PO BID 01/30/18 [Probiotic] Multivit with Calcium,Iron,Min 1 each PO DAILY 01/30/18 [Multiple Vitamins For Women] Aspirin E.C. 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 Lives: With Family Smoking Status: Never smoker Tobacco Use: Non-smoker Alcohol: None Drugs: None - *Family History Maternal History Items: Dementia Paternal History Items: Cancer - Unknown etiology Review of Systems Constitutional: Denies: Anorexia, Chills, Fever, Malaise, Weakness, Weight Change Eyes: Denies: Blurred vision, Cataracts, Conjunctivae Inflammation, Pain, Redness, Vision Change HEENT: Denies: Difficulty Hearing, Difficulty Swallowing, Head Aches, Hearing Changes, Sinus Congestion, Sinus Drainage, Sore Throat Cardiovascular: Denies: Chest Pain, Claudication, Chest Pressure, Chest Tightness, Orthopnea, Palpitations, Paroxysmal Noc. Dyspnea Respiratory: Denies: Cough, Hemoptysis, Shortness of breath at rest, Shortness of breath upon exertion, Sputum production Gastrointestinal: Denies: Abdominal Pain, Hematemesis, Hematochezia, Nausea, Vomiting Genitourinary: Denies: Dysuria Musculoskeletal: Reports: Shoulder Pain. Denies: Joint Pain, Joint Tenderness Skin: Denies: Rash, Wounds Neurological: Denies: Numbness, Tingling, Focal weakness Psychiatric: Denies: Anxiety, Depression, Homicidal Ideations, Suicidal Ideations Hematologic/ Lymphatic: Denies: Easy Bruising, Easy Bleeding VTE Information - Inpt Only VTE Present on Admission: No VTE Pharm Prophylaxis ordered?: Yes Patient Problems: Active and Suspected Problems Type II diabetes mellitus (Acute) TIA (transient ischemic attack) (Acute) - Physical Exam General: Alert, Oriented x3, Cooperative, No apparent distress, - - Morbidly obese HEENT: Atraumatic, PERRLA, EOMI, Normocephalic Oral: Moist Mucosa Neck: Supple, No JVD, Negative Carotid Bruits Lungs: Clear to auscultation, Normal air movement Cardiovascular: Regular rate, Regular Rhythm, Normal S1, Normal S2, No murmurs Abdomen: Bowel Sounds Present, Soft, Non Tender, Non-Distended, No Hepato-splenomegaly Extremities: No edema Skin: No rashes, No breakdown Musculoskeletal: No Tenderness to Palpation of Joints or Extremities Lymphatic: No Cervical, Supraclavicular, or Inguinal Adenopathy Neurological: Cranial nerves II-XII grossly intact, Neuro grossly intact, Motor Exam 5/5 strength throughout - Except for tenderness over the right shoulder with Psych/Mental Status: Normal Affect, Appropriate Vital Signs Temp Pulse Resp BP Pulse Ox 97.8 F 71 20 H 139/48 H 94 09/01/18 13:12 09/01/18 15:28 18 15:28 09/01/18 15:28 09/01/18 15:28 Oxygen Delivery Method Room Air Weight: 120.5 kg Body Mass Index (BMI) 47.0 Finger Stick Blood Glucose 161 Laboratory Tests Past 24 Hrs 09/01/18 09/01/18 09/01/18 14:55 14:55 14:55 WBC 10.9 RBC 4.43 Hgb 13.2 Hct 41.8 MCV 94.4 MCH 29.8 MCHC 31.6 L RDW 14.8 H RDW Differential 50.6 H Plt Count 245 MPV 12.0 Immature Gran % (Auto) 0.200 Neut % (Auto) 68.4 Lymph % (Auto) 21.5 [place] % (Auto) 7.0 Eos % (Auto) 2.7 Baso % (Auto) 0.2 Absolute Neuts (auto) 7.4 Absolute Lymphs (auto) 2.34 Total Counted Not Reportable PT 13.5 INR 1.0 APTT 28.8 Sodium 139 Potassium 4.1 Chloride 106 Carbon Dioxide 27.0 Anion Gap 6 BUN 22 H Creatinine 0.94 Estim Creat Clear Calc 40.80 Est GFR (MDRD) Af Amer 74 Est GFR (MDRD) Non-Af 61 BUN/Creatinine Ratio 23.4 H Glucose 170 H Calcium 9.2 Troponin I < 0.015 POC Glucose 09/01/18 14:28 POC Glucose 161 H Assessment/Plan All Active Problems Type II diabetes mellitus (Acute) TIA (transient ischemic attack) (Acute) 78 year old F with past medical history of type II DM, hypertension, obesity who comes in with complaints of slurred speech ongoing since this morning. Patient lives at home with her daughter and was noted to have slurred speech and right-sided facial droop at 7:15 AM. 1. Acute onset of slurred speech, concerning for possible TIA in a patient with multiple risk factors, Initial CT of the brain was negative for acute hemorrhage or infarct Plan: Admit to PCU, monitor on telemetry, MRI of the brain, MRA of the head and neck, lipid profile, HbA1c, neurology consult, continue on home aspirin, add Plavix, 2D echo, PT, OT, ST, to evaluate and treat, follow-up with TIA protocol 2. Hypertension, controlled, continue medications, continue to monitor 3. Type 2 DM, on glimepiride, continue with Accu-Cheks, insulin sliding scale 4. Morbid obesity, BMI 47.1, weight loss, exercise is recommended 5. DVT Prophylaxis with Lovenox subcu Code Visit OBSV E&M: 37844 Initial observation care L3
--- NOTE | 2018-09-01 17:24 | MRI_ITS ---
STUDY: MRI BRAIN WITHOUT CONTRAST REASON FOR EXAM: Female, 78 years old. Slurred speech, right-sided weakness. TECHNIQUE: Standardized multiplanar fat and water weighted pulse sequences were obtained. COMPARISON: None. FINDINGS: Focal restricted diffusion is noted in the left parietal white matter consistent with acute white matter lacunar infarct. No additional area of acute ischemia is noted. There is no mass, mass effect or midline shift. There is no hemorrhage or territorial infarct. There is mild cerebral atrophy with widening of the extra-axial spaces and ventricular dilatation. There are multiple white matter hyperintensities, distributed throughout the deep white matter tracts of the cerebral hemispheres, consistent with moderate chronic white matter ischemic changes. Normal bilateral basal ganglia. Normal thalami. There is no extra-axial fluid accumulation. Normal flow voids within the major intracranial circulation suggesting patency by spin echo criteria. Normal sella turcica, pituitary gland, infundibular stalk, optic chiasm and hypothalamus. Normal tectal plate and pineal gland. Normal midbrain, charlie and medulla. Normal cerebellum. Normal basal cisterns. Normal bilateral temporal bones. Normal bilateral internal auditory canals. No demonstrated orbital abnormality, within the constraints of a routine brain study. Normal visualized paranasal sinuses. Normal calvarium and skull base. Normal visualized soft tissue structures. Normal visualized upper cervical spine. MRI/Brain without Contrast IMPRESSION: 1. Acute left parietal white matter lacunar infarct. 2. Chronic white matter ischemic changes. Atrophy. Electronically Signed: Gnéesis Marlow MD at 20:02 EDT Tel , Service support ,
--- NOTE | 2018-09-01 17:24 | MRI_ITS ---
STUDY: MRA OF THE HEAD WITHOUT CONTRAST REASON FOR EXAM: Female, 78 years old. Slurred speech. Right-sided weakness. TECHNIQUE: 3-D [id number] (TOF) imaging was performed with MIPs. The study was performed unenhanced. COMPARISON: None. FINDINGS: Normal bilateral petrous carotid arteries. Normal right cavernous carotid artery with a normal supraclinoid bifurcation. Normal left cavernous carotid artery with a normal supraclinoid bifurcation. Normal right A1 segments of the anterior cerebral artery. Normal left A1 segments of the anterior cerebral artery. Normal intact anterior communicating artery (ACOM). Normal bilateral A2 segments of the anterior cerebral arteries. Normal right M1 and M2 segments of the middle cerebral arteries, with a normal M1 bifurcation. Normal left M1 and M2 segments of the middle cerebral arteries, with a normal M1 bifurcation. Normal right posterior communicating artery (PCOM). There is non-visualization of the left posterior communicating artery (PCOM). Normal bilateral vertebral arteries. Normal basilar artery with a normal basilar bifurcation. The visualized bilateral superior cerebellar (SCA) arteries are normal. Normal bilateral P1, P2 and visualized P3 segments of the posterior cerebral arteries. There is no demonstrated aneurysm of the [place]. There is no major vessel occlusion or hemodynamically significant stenosis. There is no demonstrated abnormality of the visualized brain. MRI/MRA Head ONLY without Contrast IMPRESSION: Normal MRA of the head Electronically Signed: Génesis Marlow MD at 20:23 EDT Tel , Service support ,
--- NOTE | 2018-09-01 17:24 | ECHOD_ITS ---
Reason For Study: TIA/STROKE Procedure This was a 2D Doppler, Color Flow transthoracic echocardiogram. Exam performed portable in patient room. Left Ventricle Normal size and thickness. The estimated ejection fraction is 65 %. Stage 2 diastolic dysfunction. Right Ventricle Normal right ventricle. Atria The left atrium is mildly enlarged. Bubble contrast study negative for right to left interatrial shunt. Mitral Valve Moderate posterior annular calcification. Trivial mitral valve insufficiency. Tricuspid Valve Trivial tricuspid valve insufficiency. Aortic Valve Normal aortic valve. Pulmonic Valve The pulmonic valve is not well visualized. Great Vessels Aortic root not well visulaized. Pericardium/Pleural No pericardial effusion. Medication Performed a rapid injection of agitated mix of 9 cc saline and 1cc air to assess for atrial septal defect. MMode/2D Measurements & Calculations LVIDd: 4.2 cm IVSd: 1.1 cm LVOT diam: 2.0 cm LVIDs: 2.9 cm LVPWd: 0.80 cm LVOT area: 3.0 cm2 RVDd: 4.2 cm FS: 29.2 % Ao root diam: 3.0 cm LAV(MOD-sp4): 103.4 ml LA dimension: 3.9 cm LA A4 area: 28.1 cm2 RA A4 area: 16.3 cm2 Time Measurements MV dec time: 0.31 sec Doppler Measurements & Calculations MV E max jalen: 101.6 cm/sec Lat Peak E' Jalen: 8.5 cm/sec Med Peak E' Jalen: 4.0 cm/sec MV A max jalen: 148.0 cm/sec E/E' lat: 12.0 E/E' med: 25.4 MV E/A: 0.69 MV V2 max: 179.1 cm/sec MV P1/2t max jalen: 127.1 cm/sec Ao V2 max: 171.8 cm/sec MV max P.8 mmHg MV P1/2t: 77.0 msec Ao max P.8 mmHg MV V2 mean: 89.8 cm/sec MV dec slope: 483.5 cm/sec2 Ao V2 mean: 120.6 cm/sec MV mean P.8 mmHg MVA(P1/2t): 2.9 cm2 Ao mean P.5 mmHg MV V2 VTI: 44.9 cm Ao V2 VTI: 41.0 cm MVA(VTI): 2.3 cm2 LUDWIN(I,D): 2.5 cm2 LUDWIN(V,D): 2.4 cm2 LV V1 max: 137.5 cm/sec SV(LVOT): 104.5 ml PA V2 max: 134.9 cm/sec LV V1 max P.6 mmHg LV V1 mean P.1 mmHg LV V1 mean: 95.0 cm/sec LV V1 VTI: 34.6 cm TR max jalen: 322.8 cm/sec TR max P.7 mmHg Interpretation Summary The estimated ejection fraction is 65 %. Stage 2 diastolic dysfunction. The left atrium is mildly enlarged. Bubble contrast study negative for right to left interatrial shunt. Ordering Physician: Di Meeks Referring Physician: Vincent Melchor Performed By: Caleb Romero RCS
[2018-09-01 19:12] LABS: Hemoglobin A1c 7.7 % (4.2-6.3)
[2018-09-01] MEDS: Clopidogrel Bisulfate 75 MG Tablet PO (20:20)
[2018-09-01] MEDS: Glimepiride 4 MG Tablet PO (20:20)
[2018-09-01] MEDS: 0.9% NaCl Peripheral Flush Adult/Peds IV (20:20)
[2018-09-01] MEDS: Loperamide 2 MG Capsule PO (22:06)
[2018-09-01] MEDS: Insulin Lispro 100 UNIT/ML INSULN.PEN SQ (22:08)
[2018-09-01 22:56] LABS: Bedside Glucose 203 mg/dL (70-110)
[2018-09-02] VITALS (14 sets, daily range): BP systolic 112–144; BP diastolic 50–58; PULSE 68–86; RESP 16–20; TEMP 36.4–36.7; O2SAT 93–96; BMI 44.9
[2018-09-02 06:51] LABS: Bedside Glucose 117 mg/dL (70-110)
--- NOTE | 2018-09-02 07:34 | MRI_ITS ---
STUDY: MRA NECK WITH AND WITHOUT CONTRAST REASON FOR EXAM: Female, 78 years old. ABNORMAL MRI BRAIN, WAEKNESS. TECHNIQUE: 3-D [id number]-[id number] (TOF) imaging was performed in an 1.5 T MRI scanner. 10 ml of Gadavist was administered for the contrast enhanced images. COMPARISON: None. FINDINGS: Examination is degraded by motion artifact. RIGHT CAROTID ARTERIES: There is tortuous elongation of the right common carotid artery. There appears to be mild atherosclerotic plaque formation with minimal narrowing of the right carotid bulb. There appears to be mild atherosclerotic plaque formation of the origin of the right internal carotid artery with less than 50% cross sectional diameter stenosis. There is atherosclerotic tortuous elongation of the cervical portion of the right internal carotid artery. LEFT CAROTID ARTERIES: There is tortuous elongation of the left common carotid artery. There appears to be mild atherosclerotic plaque formation with minimal narrowing of the left carotid bulb. There appears to be mild atherosclerotic plaque formation of the origin of the left internal carotid artery with less than 50% cross sectional diameter stenosis. There is atherosclerotic tortuous elongation of the cervical portion of the left internal carotid artery. VERTEBRAL ARTERIES: Normal antegrade flow within the bilateral vertebral artery without a hemodynamically significant stenosis. MRI/MRA Neck WITH and W/O Contrast IMPRESSION: Limited examination. No demonstrated occlusion or significant stenosis. Mild atherosclerotic plaque. Further evaluation with sonography can be obtained. Electronically Signed: Marco Salas MD at 13:04 EDT Tel , Service support ,
[2018-09-02] MEDS: Glucerna Shake 120 ML LIQUID PO ×2 (07:47→11:32)
[2018-09-02] MEDS: Aspirin E.C. 81 MG Tablet PO (07:47)
[2018-09-02] MEDS: Glimepiride 4 MG Tablet PO ×2 (07:47→16:09)
[2018-09-02] MEDS: Clopidogrel Bisulfate 75 MG Tablet PO (09:16)
[2018-09-02] MEDS: LORazepam 1 MG Tablet PO (09:16)
[2018-09-02] MEDS: Enoxaparin 40 MG/0.4 ML Syringe SC (09:17)
[2018-09-02 09:23] LABS: Anion Gap 9 (5-15); BUN 18 mg/dL (7-18); BUN/Creat Ratio 23.3 RATIO (10-20); Calcium,Total 9.1 mg/dL (8.5-10.1); Chloride 107 mmol/L (98-107); Cholesterol 186 mg/dL (200); Creatinine, Serum 0.77 mg/dL (0.55-1.02); EST Glomerular Filtration Rate 77 mL/min (>60); Est Glom Filt Rate - Afr Amer 93 mL/min (>60); Estimated Creatinine Clearance 40.04 ml/min; Glucose 119 mg/dL (74-106); High Density Lipoprotein 53 mg/dL; Potassium 4.1 mmol/L (3.5-5.1); Sodium Level 143 mmol/L (136-145); Triglycerides 152 mg/dL; Very Low Density Lipoprotein 30 mg/dL (5-40)
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
[2018-09-02] MEDS: Insulin Lispro 100 UNIT/ML INSULN.PEN SQ ×2 (11:32→22:41)
[2018-09-02] MEDS: Multivitamins,Ther W-Minerals Tablet 1 TABLET PO (11:32)
[2018-09-02 12:00] LABS: Bedside Glucose 249 mg/dL (70-110)
--- NOTE | 2018-09-02 13:24 | CASEMGMT ---
JOSE LUIS DORSEY assessment: Face to Face with patient for initial transition planning/care coordination assessment. RN WILLIAN introduced self and role at [facility], pt voices understanding and consents to assessment at this time. Pt is sitting up in bed in no distress at this time. Pt is A/O x4 at this time and answers all questions appropriately at this time. Care providers, pharmacy, and demographics verified at this time. PCP: [facility] Specialists: Pt states currently has no specialists. Preferred Pharmacy: [facility] Insurance: [employer] Prescription Benefit: [employer] Living Will/HPOA: Pt states has LW/HPOA and daughter Carissa Carreon, but it is not on file at [facility] at this time. LNOK: Carissa Carreon, daughter; Swapna Truong, sister Living Arrangements: Pt states lives with daughter and her family in home and states no concerns at home at this time. Pt states has no stairs at home. Transportation: Pt states drives self and states no transportation concerns at this time. DME/HHC: Pt states has the following DME: shower chair, cane, walker, rollater, and walk-in shower. Pt states no need for any further DME at this time. Pt states has never had HHC in the past but did go to [facility] s/p hip surgery. Pt states no concerns with going home at time of discharge. Pt is agreeable to outpt therapy if PT/OT recommends. Pt states does not smoke or drink ETOH. Pt voices no further concerns/needs at this time. Advised pt to ask for CM if any further questions/concerns/needs arise, voices understanding. Order for outpt therapy left with Maki Perez RN with instructions, voices understanding. Plan: Home w/ outpt therapy [facility] JOSE LUIS DORSEY
--- NOTE | 2018-09-02 14:22 | PCM.PN.HOSP ---
Patient Problems: Active and Suspected Problems Type II diabetes mellitus (Acute) TIA (transient ischemic attack) (Acute) Stroke (Acute) Subjective: Patient was seen and examined. She feels improved. Still has right shoulder pain and unable to lift the right upper extremity. No acute events overnight He denies any dizziness or chest discomfort or worsening tingling or numbness. Objective: Physical Exam General: Alert, Oriented x3, Cooperative, No apparent distress, - - Morbidly obese HEENT: Atraumatic, PERRLA, EOMI, Normocephalic Oral: Moist Mucosa Neck: Supple, No JVD, Negative Carotid Bruits Lungs: Clear to auscultation, Normal air movement Cardiovascular: Regular rate, Regular Rhythm, Normal S1, Normal S2, No murmurs Abdomen: Bowel Sounds Present, Soft, Non Tender, Non-Distended, No Hepato-splenomegaly Extremities: No edema Skin: No rashes, No breakdown Musculoskeletal: No Tenderness to Palpation of Joints or Extremities Lymphatic: No Cervical, Supraclavicular, or Inguinal Adenopathy Neurological: Cranial nerves II-XII grossly intact, Neuro grossly intact, Motor Exam 5/5 strength throughout - Except for tenderness over the right shoulder with Psych/Mental Status: Normal Affect, Appropriate Vitals/I&O's: Vital Signs Temp Pulse Resp BP Pulse Ox 98.0 F 73 18 126/50 H 94 09/02/18 13:53 09/02/18 13:53 09/02/18 13:53 09/02/18 13:53 09/02/18 13:53 Oxygen Delivery Method Room Air Weight: 118.569 kg Body Mass Index (BMI) 44.9 Finger Stick Blood Glucose 161 Intake and Output for Last 24 Hours 08/31/18 09/01/18 09/02/18 23:59 23:59 23:59 Intake Total 1037 / 1037 716 / 716 Balance 1037 / 1037 716 / 716 Laboratory Results 09/01/18 14:28: POC Glucose 161 H 09/01/18 14:55: WBC 10.9, RBC 4.43, Hgb 13.2, Hct 41.8, MCV 94.4, MCH 29.8, MCHC 31.6 L, RDW 14.8 H, RDW Differential 50.6 H, Plt Count 245, MPV 12.0, Immature Gran % (Auto) 0.200, Neut % (Auto) 68.4, Lymph % (Auto) 21.5, [place] % (Auto) 7.0, Eos % (Auto) 2.7, Baso % (Auto) 0.2, Absolute Neuts (auto) 7.4, Absolute Lymphs (auto) 2.34, Total Counted Not Reportable 09/01/18 14:55: PT 13.5, INR 1.0, APTT 28.8 09/01/18 14:55: Sodium 139, Potassium 4.1, Chloride 106, Carbon Dioxide 27.0, Anion Gap 6, BUN 22 H, Creatinine 0.94, Estim Creat Clear Calc 40.80, Est GFR (MDRD) Af Amer 74, Est GFR (MDRD) Non-Af 61, BUN/Creatinine Ratio 23.4 H, Glucose 170 H, Calcium 9.2, Troponin I < 0.015 09/01/18 18:09: Hemoglobin A1c 7.7 H 09/01/18 18:09: Troponin I < 0.015 09/01/18 21:21: Troponin I < 0.015 09/01/18 22:03: POC Glucose 203 H 09/02/18 06:46: POC Glucose 117 H 09/02/18 08:40: Sodium 143, Potassium 4.1, Chloride 107, Carbon Dioxide 27.0, Anion Gap 9, BUN 18, Creatinine 0.77, Estim Creat Clear Calc 40.04, Est GFR (MDRD) Af Amer 93, Est GFR (MDRD) Non-Af 77, BUN/Creatinine Ratio 23.3 H, Glucose 119 H, Calcium 9.1, Triglycerides 152, Cholesterol 186, LDL Cholesterol 103, VLDL Cholesterol 30, HDL Cholesterol 53 09/02/18 11:28: POC Glucose 249 H Current Medications Acetaminophen (Tylenol) 650 mg PO Q6H PRN PRN PRN Reason: Mild Pain (1-3)/Temp > 100.7 F Aspirin (Ecotrin) 81 mg PO DAILY@0800 [facility] Last Admin: 09/02/18 07:47 Dose: 81 mg Atorvastatin Calcium (Lipitor) 40 mg PO QHS [facility] Cholecalciferol (Vitamin D) 5,000 unit PO DAILY [facility] Last Admin: 09/02/18 09:17 Dose: 5,000 unit Clopidogrel Bisulfate (Plavix) 75 mg PO DAILY [facility] Last Admin: 09/02/18 09:16 Dose: 75 mg Dextrose (D50w Syringe) 0 gm IV X1 PRN; Protocol PRN Reason: Hypoglycemia Enoxaparin Sodium (Lovenox) 40 mg SC DAILY@1000 [facility] Last Admin: 09/02/18 09:17 Dose: 40 mg Glimepiride (Amaryl) 4 mg PO BIDCM [facility] Last Admin: 09/02/18 07:47 Dose: 4 mg Glucagon () 1 mg IM .X1 PRN PRN Reason: Hypoglycemia Insulin Human Lispro (Humalog Kwikpen (Bkc)) 0 unit SQ ACHS [facility]; Protocol Last Admin: 09/02/18 11:32 Dose: 2 u Lactobacillus Acidophilus (Acidophilus) 1 tablet PO BID [facility] Last Admin: 09/02/18 07:47 Dose: 1 tablet Loperamide HCl (Imodium) 2 mg PO QHS [facility] Last Admin: 09/01/18 22:06 Dose: 2 mg Magnesium Hydroxide (Milk Of Magnesia) 30 ml PO DAILY PRN PRN Reason: Constipation Multivitamins/Minerals (Multivitamin With Minerals) 1 tablet PO DAILY@1200 [facility] Last Admin: 09/02/18 11:32 Dose: 1 tablet Ondansetron HCl (Zofran) 4 mg IV Q8H PRN PRN PRN Reason: NAUSEA Sodium Chloride () 5 - 30 ml IV UD PRN PRN Reason: SALINE FLUSH Last Admin: 09/01/18 20:20 Dose: 10 ml Medical Necessity - Tobacco Use Smoking Status: Never smoker Tobacco Use: Non-smoker Assessment/Plan All Active Problems Type II diabetes mellitus (Acute) TIA (transient ischemic attack) (Acute) Stroke (Acute) 78 year old F with past medical history of type II DM, hypertension, obesity who comes in with complaints of slurred speech ongoing since this morning. Patient lives at home with her daughter and was noted to have slurred speech and right-sided facial droop at 7:15 AM. 1. Acute onset of slurred speech, secondary to acute left parietal stroke, seen on MRI of the head, MRA head and neck unremarkable, Lipid profile shows total cholesterol 186, LDL 103 HDL 53 No events on telemetry. 2D echo shows EF of 65%, stage II diastolic dysfunction, bubble study negative Appreciate neurology consult On aspirin and Plavix, plan is for dual antiplatelets for 3 weeks then Plavix 75 mg p.o. daily We will wait for PT and OT evaluation 2. Hypertension, controlled, continue medications, continue to monitor 3. Type 2 DM, Hgb A1c 7.7, sugars are fairly controlled, on glimepiride, continue with Accu-Cheks, insulin sliding scale 4. Morbid obesity, BMI 47.1, weight loss, exercise is recommended 5. DVT Prophylaxis with Lovenox subcu Code Visit Inpatient E&M: 50432 Subs Hosp L2
--- NOTE | 2018-09-02 14:26 | PN_ITS ---
Patient Problems: Active and Suspected Problems Type II diabetes mellitus (Acute) TIA (transient ischemic attack) (Acute) Stroke (Acute) Subjective: Patient was seen and examined. She feels improved. Still has right shoulder pain and unable to lift the right upper extremity. No acute events overnight He denies any dizziness or chest discomfort or worsening tingling or numbness. Objective: Physical Exam General: Alert, Oriented x3, Cooperative, No apparent distress, - - Morbidly obese HEENT: Atraumatic, PERRLA, EOMI, Normocephalic Oral: Moist Mucosa Neck: Supple, No JVD, Negative Carotid Bruits Lungs: Clear to auscultation, Normal air movement Cardiovascular: Regular rate, Regular Rhythm, Normal S1, Normal S2, No murmurs Abdomen: Bowel Sounds Present, Soft, Non Tender, Non-Distended, No Hepato- splenomegaly Extremities: No edema Skin: No rashes, No breakdown Musculoskeletal: No Tenderness to Palpation of Joints or Extremities Lymphatic: No Cervical, Supraclavicular, or Inguinal Adenopathy Neurological: Cranial nerves II-XII grossly intact, Neuro grossly intact, Motor Exam 5/5 strength throughout - Except for tenderness over the right shoulder with Psych/Mental Status: Normal Affect, Appropriate Vitals/I&O's: Vital Signs Temp Pulse Resp BP Pulse Ox 98.0 F 73 18 126/50 H 94 09/02/18 13:53 09/02/18 13:53 09/02/18 13:53 09/02/18 13:53 09/02/18 13:53 Oxygen Delivery Method Room Air Weight: 118.569 kg Body Mass Index (BMI) 44.9 Finger Stick Blood Glucose 161 Intake and Output for Last 24 Hours 08/31/18 09/01/18 09/02/18 23:59 23:59 23:59 Intake Total 1037 / 1037 716 / 716 Balance 1037 / 1037 716 / 716 Laboratory Results 09/01/18 14:28: POC Glucose 161 H 09/01/18 14:55: WBC 10.9, RBC 4.43, Hgb 13.2, Hct 41.8, MCV 94.4, MCH 29.8, MCHC 31.6 L, RDW 14.8 H, RDW Differential 50.6 H, Plt Count 245, MPV 12.0, Immature Gran % (Auto) 0.200, Neut % (Auto) 68.4, Lymph % (Auto) 21.5, [place] % (Auto) 7.0, Eos % (Auto) 2.7, Baso % (Auto) 0.2, Absolute Neuts (auto) 7.4, Absolute Lymphs (auto) 2.34, Total Counted Not Reportable 09/01/18 14:55: PT 13.5, INR 1.0, APTT 28.8 09/01/18 14:55: Sodium 139, Potassium 4.1, Chloride 106, Carbon Dioxide 27.0, Anion Gap 6, BUN 22 H, Creatinine 0.94, Estim Creat Clear Calc 40.80, Est GFR (MDRD) Af Amer 74, Est GFR (MDRD) Non-Af 61, BUN/Creatinine Ratio 23.4 H, Glucose 170 H, Calcium 9.2, Troponin I < 0.015 09/01/18 18:09: Hemoglobin A1c 7.7 H 09/01/18 18:09: Troponin I < 0.015 09/01/18 21:21: Troponin I < 0.015 09/01/18 22:03: POC Glucose 203 H 09/02/18 06:46: POC Glucose 117 H 09/02/18 08:40: Sodium 143, Potassium 4.1, Chloride 107, Carbon Dioxide 27.0, Anion Gap 9, BUN 18, Creatinine 0.77, Estim Creat Clear Calc 40.04, Est GFR (MDRD) Af Amer 93, Est GFR (MDRD) Non-Af 77, BUN/Creatinine Ratio 23.3 H, Glucose 119 H, Calcium 9.1, Triglycerides 152, Cholesterol 186, LDL Cholesterol 103, VLDL Cholesterol 30, HDL Cholesterol 53 09/02/18 11:28: POC Glucose 249 H Current Medications Acetaminophen (Tylenol) 650 mg PO Q6H PRN PRN PRN Reason: Mild Pain (1-3)/Temp > 100.7 F Aspirin (Ecotrin) 81 mg PO DAILY@0800 [facility] Last Admin: 09/02/18 07:47 Dose: 81 mg Atorvastatin Calcium (Lipitor) 40 mg PO QHS [facility] Cholecalciferol (Vitamin D) 5,000 unit PO DAILY [facility] Last Admin: 09/02/18 09:17 Dose: 5,000 unit Clopidogrel Bisulfate (Plavix) 75 mg PO DAILY [facility] Last Admin: 09/02/18 09:16 Dose: 75 mg Dextrose (D50w Syringe) 0 gm IV X1 PRN; Protocol PRN Reason: Hypoglycemia Enoxaparin Sodium (Lovenox) 40 mg SC DAILY@1000 [facility] Last Admin: 09/02/18 09:17 Dose: 40 mg Glimepiride (Amaryl) 4 mg PO BIDCM [facility] Last Admin: 09/02/18 07:47 Dose: 4 mg Glucagon () 1 mg IM .X1 PRN PRN Reason: Hypoglycemia Insulin Human Lispro (Humalog Kwikpen (Bkc)) 0 unit SQ ACHS [facility]; Protocol Last Admin: 09/02/18 11:32 Dose: 2 u Lactobacillus Acidophilus (Acidophilus) 1 tablet PO BID [facility] Last Admin: 09/02/18 07:47 Dose: 1 tablet Loperamide HCl (Imodium) 2 mg PO QHS [facility] Last Admin: 09/01/18 22:06 Dose: 2 mg Magnesium Hydroxide (Milk Of Magnesia) 30 ml PO DAILY PRN PRN Reason: Constipation Multivitamins/Minerals (Multivitamin With Minerals) 1 tablet PO DAILY@1200 [facility] Last Admin: 09/02/18 11:32 Dose: 1 tablet Ondansetron HCl (Zofran) 4 mg IV Q8H PRN PRN PRN Reason: NAUSEA Sodium Chloride () 5 - 30 ml IV UD PRN PRN Reason: SALINE FLUSH Last Admin: 09/01/18 20:20 Dose: 10 ml Medical Necessity - Tobacco Use Smoking Status: Never smoker Tobacco Use: Non-smoker Assessment/Plan All Active Problems Type II diabetes mellitus (Acute) TIA (transient ischemic attack) (Acute) Stroke (Acute) 78 year old F with past medical history of type II DM, hypertension, obesity who comes in with complaints of slurred speech ongoing since this morning. Patient lives at home with her daughter and was noted to have slurred speech and right- sided facial droop at 7:15 AM. 1. Acute onset of slurred speech, secondary to acute left parietal stroke, seen on MRI of the head, MRA head and neck unremarkable, Lipid profile shows total cholesterol 186, LDL 103 HDL 53 No events on telemetry. 2D echo shows EF of 65%, stage II diastolic dysfunction, bubble study negative Appreciate neurology consult On aspirin and Plavix, plan is for dual antiplatelets for 3 weeks then Plavix 75 mg p.o. daily We will wait for PT and OT evaluation 2. Hypertension, controlled, continue medications, continue to monitor 3. Type 2 DM, Hgb A1c 7.7, sugars are fairly controlled, on glimepiride, continue with Accu-Cheks, insulin sliding scale 4. Morbid obesity, BMI 47.1, weight loss, exercise is recommended 5. DVT Prophylaxis with Lovenox subcu Code Visit Inpatient E&M: 25308 Subs Hosp L2
--- NOTE | 2018-09-02 15:15 | RAD_ITS ---
STUDY: X-RAY - RIGHT SHOULDER REASON FOR EXAM: Female, 78 years old. Right shoulder pain. TECHNIQUE: 4 view(s) of the shoulder. COMPARISON: None. FINDINGS: There is no acute fracture or dislocation. Glenohumeral joint is intact. There is mild spurring of the greater tuberosity. There is marked osteoarthrosis of the acromioclavicular joint. Well-corticated bone fragments suggest remote, healed fracture. Soft tissues and bony structures are otherwise unremarkable. Demonstrated right lung is clear. RAD/Shoulder min 2 Views IMPRESSION: 1. No acute process. 2. Acromioclavicular osteoarthrosis. Electronically Signed: Génesis Marlow MD at 16:46 EDT Tel , Service support ,
[2018-09-02 16:51] LABS: Bedside Glucose 143 mg/dL (70-110)
[2018-09-02] MEDS: Atorvastatin Calcium 40 MG Tablet PO (22:41)
[2018-09-02] MEDS: Loperamide 2 MG Capsule PO (22:41)
[2018-09-02 23:00] LABS: Bedside Glucose 184 mg/dL (70-110)
[2018-09-03] VITALS (7 sets, daily range): BP systolic 129–152; BP diastolic 60–68; PULSE 73–98; RESP 16–18; TEMP 36.2–36.9; O2SAT 91–96; BMI 44.9
[2018-09-03 07:10] LABS: Bedside Glucose 145 mg/dL (70-110)
[2018-09-03] MEDS: Aspirin E.C. 81 MG Tablet PO (09:11)
[2018-09-03] MEDS: Glimepiride 4 MG Tablet PO (09:11)
[2018-09-03] MEDS: Clopidogrel Bisulfate 75 MG Tablet PO (09:12)
[2018-09-03] MEDS: Enoxaparin 40 MG/0.4 ML Syringe SC (09:14)
--- NOTE | 2018-09-03 10:56 | DS.PCM_ITS ---
Discharge Date and Diagnosis Date of Admission: 09/01/18 Date of Discharge: 09/05/18 - Primary Discharge Diagnosis Active and Suspected Problems Stroke (Acute) - Secondary Discharge Diagnosis Chronic Problems Hypertension (Chronic) Morbid obesity (Chronic) Hospital Course and Treatment Imaging Results: Clinical Impression(s) from Imaging Studies Brain CT 09/01/18 14:28 IMPRESSION: Mild atrophy no visualized evidence of acute hemorrhage or infarct or edema. Electronically Signed: Meghan Gill MD at 16:17 EDT Tel , Service support , Chest X-Ray 09/01/18 14:28 IMPRESSION: Mild peribronchial thickening suggestive of possible central bronchiectasis and/or bronchitis. There is a least one indeterminate nodule within the left upper lobe that measures 5.4 mm. In comparison to prior study is recommended for consideration for follow-up noncontrast chest CT. Findings are suspicious for underlying chronic lung disease. Mild cardiomegaly. No definitive focal consolidation. Electronically Signed: Meghan Gill MD at 15:53 EDT Tel , Service support , Brain MRI 09/01/18 17:24 IMPRESSION: 1. Acute left parietal white matter lacunar infarct. 2. Chronic white matter ischemic changes. Atrophy. Electronically Signed: Génesis Marlow MD at 20:02 EDT Tel , Service support , Head MRA 09/01/18 17:24 IMPRESSION: Normal MRA of the head Electronically Signed: Génesis Marlow MD at 20:23 EDT Tel , Service support , Neck MRA 09/02/18 07:34 IMPRESSION: Limited examination. No demonstrated occlusion or significant stenosis. Mild atherosclerotic plaque. Further evaluation with sonography can be obtained. Electronically Signed: Marco Salas MD at 13:04 EDT Tel , Service support , Shoulder X-Ray 09/02/18 15:15 IMPRESSION: 1. No acute process. 2. Acromioclavicular osteoarthrosis. Electronically Signed: Génesis Marlow MD at 16:46 EDT Tel , Service support , Neurology Operations: None Procedures: 2-D Echocardiogram Summary of Care Provided: 78 year old F with past medical history of type II DM, hypertension, obesity who comes in with complaints of slurred speech ongoing on the day of admission. Patient lives at home with her daughter and family and was noted to have slurred speech and right-sided facial droop at 7:15 AM. She had difficulty wearing her bra and clothes. She was reluctant to be brought into the emergency room. Initial CT scan of the head showed no acute changes. Patient was admitted to telemetry bed, MRI of the brain showed acute left parietal stroke, MRA of the head and neck was unremarkable. Lipid profile showed total cholesterol 186, LDL 103 HDL 53. 2D echo showed EF of 55%, stage II diastolic dysfunction, bubble study was negative. Neurology was consulted. Patient was managed on aspirin and Plavix. The plan was for dual antiplatelets for 3 weeks then Plavix 75 mg p.o. daily. Patient was seen by PT and OT and outpatient therapy was recommended. Patient was discharged to have a 30-day event monitor. Subjective: Patient was seen and examined on the day of discharge. No complaints. Eager to be discharged. Telemetry showed no events. Objective: Physical Exam General: Alert, Oriented x3, Cooperative, No apparent distress, - - Morbidly obese HEENT: Atraumatic, PERRLA, EOMI, Normocephalic Oral: Moist Mucosa Neck: Supple, No JVD, Negative Carotid Bruits Lungs: Clear to auscultation, Normal air movement Cardiovascular: Regular rate, Regular Rhythm, Normal S1, Normal S2, No murmurs Abdomen: Bowel Sounds Present, Soft, Non Tender, Non-Distended, No Hepato- splenomegaly Extremities: No edema Skin: No rashes, No breakdown Musculoskeletal: No Tenderness to Palpation of Joints or Extremities Lymphatic: No Cervical, Supraclavicular, or Inguinal Adenopathy Neurological: Cranial nerves II-XII grossly intact, Neuro grossly intact, Motor Exam 5/5 strength throughout - Except for tenderness over the right shoulder with Psych/Mental Status: Normal Affect, Appropriate - Physical Exam Vital Signs Temp Pulse Resp BP Pulse Ox 98.5 F 85 18 129/67 H 94 09/03/18 09:09 09/03/18 09:09 09/03/18 09:09 09/03/18 09:09 09/03/18 09:09 Oxygen Delivery Method Room Air Weight: 118.569 kg Body Mass Index (BMI) 44.9 Finger Stick Blood Glucose 161 Intake and Output for Last 24 Hours 09/01/18 09/02/18 09/03/18 23:59 23:59 23:59 Intake Total 1037 / 1037 1056 / 1056 600 / 600 Balance 1037 / 1037 1056 / 1056 600 / 600 POC Glucose 09/03/18 09/02/18 09/02/18 06:50 22:36 16:05 POC Glucose 145 H 184 H 143 H 09/02/18 11:28 POC Glucose 249 H Discharge Diet: Low fat/ Low Cholesterol, 2000 mg Sodium Diet, Carb Control Diet Discharge Activity: Return to Normal Activity Home Medications: Medications to take at Discharge Glimepiride [Amaryl] 4 mg PO BID 01/30/18 L.acidoph,Paracasei, B.lactis [Probiotic] 1 each PO BID 01/30/18 Multivit with Calcium,Iron,Min [Multiple Vitamins For Women] 1 each PO DAILY 01/30/18 Aspirin E.C. [Ecotrin] 81 mg PO DAILY@0800 09/01/18 Cholecalciferol (Vitamin D3) [Vitamin D3] 5,000 unit PO DAILY 09/01/18 Loperamide HCl [Imodium A-D] 1 mg PO DAILY 09/01/18 Acetaminophen [Tylenol Tablet] 650 mg PO Q6H PRN PRN tablet 09/03/18 Atorvastatin Calcium [Lipitor] 40 mg PO QHS #30 tablet 09/03/18 Clopidogrel Bisulfate [Plavix] 75 mg PO DAILY #30 tablet 09/03/18 Following Prescrptions Were Given to Patient: Atorvastatin Calcium [Lipitor] 40 mg PO QHS #30 tablet Clopidogrel Bisulfate [Plavix] 75 mg PO DAILY #30 tablet Other Amb Orders: 30-Day Event Recorder [[facility]] Location: None Selected Primary Care Physician: Tim Lozada MD [Primary Care Provider] - Please follow up with your Primary Care Physician in: within 2 weeks; call to make an appointment Please Follow Up With: Jazz Betancourt MD When: in 3 weeks; call to make an appointment Disposition: Home - With outpatient therapy Minutes spent on discharge:: 45 Patient Condition:: Stable Medical Necessity - Tobacco Use Smoking Status: Never smoker Tobacco Use: Non-smoker Meaningful Use Info Meaningful Use Diagnoses (Choose all that apply): Ischemic CVA - CVA Therapy Assessed for PT,OT and/or ST?: Yes - Ischemic Stroke Antithrombotic order at d/c?: No Reason antithrombotic not ordered: Treatment not Indicated Dx of Atrial fib/flutter?: No Anticoagulant at discharge?: No Reason anticoagulant not ordered: Treatment not Indicated Statins at discharge?: Yes Primary Dx Acute Ischemic CVA?: Yes IV tPA ordered during stay?: No Reason IV t-PA not ordered: Treatment not Indicated Code Visit Inpatient E&M: 04288 Disch Hosp
--- NOTE | 2018-09-03 10:56 | DCINST_ITS ---
- Discharge Diagnoses Current Active Problems: Current Active and Chronic Problems Hypertension (Chronic) Type II diabetes mellitus (Acute) Morbid obesity (Chronic) TIA (transient ischemic attack) (Acute) Stroke (Acute) Reason(s) for Visit for Discharge Instructions: Slurred speech You will use the following diet at home:: Calorie/Carbohydrate Controlled (specify 1200, 1400, etc), Cardiac Your food should be the consistency of: Regular Your liquids should be the consistency of: Regular/Thin Discharge Activity: Return to Normal Activity Additional Instructions: You will be on aspirin and Plavix for 3 weeks, then be on Plavix only. Continue to take your cholesterol medicine. You have been referred for outpatient therapy in [facility]. Discuss with the therapy team when you can start swimming again. Continue to follow the therapy recommendations. You will be discharged on a 30 day event monitor. You will need to follow-up with your primary care doctor and neurologist. Allergies/Adverse Reactions: Allergies No Known Allergies Allergy (Verified 09/01/18 13:14) Medications to take at Discharge Glimepiride [Amaryl] 4 mg PO BID 01/30/18 L.acidoph,Paracasei, B.lactis [Probiotic] 1 each PO BID 01/30/18 Multivit with Calcium,Iron,Min [Multiple Vitamins For Women] 1 each PO DAILY 01/30/18 Aspirin E.C. [Ecotrin] 81 mg PO DAILY@0800 09/01/18 Cholecalciferol (Vitamin D3) [Vitamin D3] 5,000 unit PO DAILY 09/01/18 Loperamide HCl [Imodium A-D] 1 mg PO DAILY 09/01/18 Acetaminophen [Tylenol Tablet] 650 mg PO Q6H PRN PRN tablet 09/03/18 Atorvastatin Calcium [Lipitor] 40 mg PO QHS #30 tablet 09/03/18 Clopidogrel Bisulfate [Plavix] 75 mg PO DAILY #30 tablet 09/03/18 The following prescriptions were given: Atorvastatin Calcium [Lipitor] 40 mg PO QHS #30 tablet Clopidogrel Bisulfate [Plavix] 75 mg PO DAILY #30 tablet Orders to be completed after discharge: 30-Day Event Recorder [[facility]] Location: None Selected Primary Care Physician: Tim Lozada MD [Primary Care Provider] - Please follow up with your Primary Care Physician in: within 2 weeks; call to make an appointment Test Results: Test results from this visit will be discussed in further detail at your follow- up appointment, if applicable. Please Follow Up With: Jazz Betancourt MD When: in 3 weeks; call to make an appointment Proposed Discharge Date: 09/03/18
[2018-09-03] MEDS: Multivitamins,Ther W-Minerals Tablet 1 TABLET PO (11:38)
[2018-09-03 11:45] LABS: Bedside Glucose 223 mg/dL (70-110)
--- NOTE | 2018-09-04 08:42 | CASEMGMT ---
Order for outpt therapy faxed to [facility] at this time after multiple attempts yesterday for same. Rae AMAYA CM
== END 2018-09-03 12:17 | disposition home or self-care (01) ==
LOC: ED 14:49 → PCU 16:31
PROVIDERS: Admitting Provider Internal Medicine; Emergency Provider Emergency Medicine; Family Provider Family Medicine; PCP Family Medicine; Visit Provider Internal Medicine
DX: I63.312 Cerebral infarction due to thrombosis of left middle cerebral artery (principal); R47.81 Slurred speech; R29.810 Facial weakness; E66.01 Morbid (severe) obesity due to excess calories; Z68.41 Body mass index [BMI] 40.0-44.9, adult; Z71.3 Dietary counseling and surveillance; I10 Essential (primary) hypertension; E11.9 Type 2 diabetes mellitus without complications; Z79.899 Other long term (current) drug therapy; Z79.84 Long term (current) use of oral hypoglycemic drugs; Z79.82 Long term (current) use of aspirin
CPT/HCPCS: 36415; 70450; 70544; 70549; 70551; 71045; 73030; 80048; 80061; 82962; 83036; 84484; 85025; 85610; 85730; 93005; 93306; 96360; 96361; 96372; 97161; 97166; 97802; 99218; 99284; A9585; J7030; Q9957; A4216; G0378

== ENCOUNTER 2018-10-03 12:30 | Outpatient (RCR) | payer MEDICARE, SELFPAY ==
--- NOTE | 2018-09-06 14:05 | HP.PTEVAL ---
Patient's Visit Information YECENIA LAZAR is a 78 year old F referred to Physical Therapy by Di Meeks MD with a diagnosis of CVA. 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 Patient had CVA with slurred speech and fell to floor. Patient went to ER [facility] ,then patient had MRI ,CATSCAN found CVA.Patient affect more arm right side weaknes. Patient was hospitalized 3 days and d/c 09/03/18.Patient is on 30 day heart monitor and plan to see neurologist in 3weeks. C/O parathesia hands. Patient use rollator for gait ,ocassioanlly use cane. Patient recently had THR in January 2018. Patient has walkin shower Independant with dressing,bathing. Fine motor deficits.Daughter does cooking and cleaning.Patient recnt CVA has affected QOL .Patient was driving.Patient does water exercises 3xweek. HOME SITUATION: 1story home no steps. SOCIAL: lives with daughter - Objective POSTURE: foward posture knee valgus. GAIT: Ambulates with rollator slow barbara foward posture. NEURO: c/o parathesia hands ,reflexes L3-4,L4-5,L5-S1 2/3. BALANCE: fair+ with fww. MMT: quads/hams 4/5 ,hip flexion 4-/5,ankle 4/5,hip abd 3+/5. STAIRS: ascend/descend steps one steps at a time with rail. ENDURANCE: fair - Balance Scores CATSIB Score (Max score 120 seconds): 35 - Goals Goal 1:: Patient to be Independant with HEP Goal Time Frame: 4-6 Weeks Goal 2:: Patient improve gait with community distance with improved functional endurance. Goal Time Frame: 4-6 Weeks Goal 3:: Patinet to improve dynamic balance to good - Goal Time Frame: 4-6 Weeks Goal 4:: Patient to improve CATSIB SCORE BY 5-10 POINTS to improve gait/balance Goal Time Frame: 4-6 Weeks Goal 5:: Patient to improve LFES score by 5-10 points to improve QOL Goal Time Frame: 4-6 Weeks - Rehabilitation Potential Physical Therapy Diagnosis: This patient had CVA with mild deficits with weakness thus has impairments with gait,balnce and function,endurance thus benifit from skilled PT Rehabilitation Potential: Good - Anticipated Interventions Patient/Client Instruction: Educate patient on: Condition, Plan of Care For the Purpose of:: To decrease pain, To improve muscle performance and motor function, To improve ability to perform ADL's, To increase tolerance to activity/condition/position, To improve performance and independence with ADL's, To decrease level of supervision to perform tasks, To improve ability of physical actions for home/community/work/leisure, To improve gait and locomotor functions, To improve endurance, To improve balance Therapeutic Exercise to Include: Strength training, Endurance training, Balance training, Flexibilty training Comment: LE For the Purpose of:: To improve muscle performance and motor function, To improve ability to perform ADL's, To increase tolerance to activity/condition/position, To improve performance and independence with ADL's, To decrease level of supervision to perform tasks, To improve ability of physical actions for home/community/work/leisure, To improve gait and locomotor functions, To improve ability to perform tasks related to life management Thank you for the opportunity to evaluate your patient. For Medicare and Medicare HMO plans, please review the plan of care and approve it. It will need to be FAXED BACK to us at [phone] for Medicare purposes. Please let me know if there are questions or concerns regarding this plan of care. Physician Signature: Date:
--- NOTE | 2018-09-06 15:21 | HP.OTEVAL_ITS ---
Patient's Visit Information YECENIA LAZAR is a 78 year old F, referred to Occupational Therapy by Di Meeks MD, with a diagnosis of CVA. Date of Evaluation: 09/06/18 Occupational Therapist: Amairani Arellano - Subjective Subjective: Pt seen for initial occupational thearpy evaluation after having CVA 09/01/18. Prior to CVA pt was independent with BADLs/IADLs. Pt lives w/ daughter and her family, 1 story house no steps to enter. AMB w/ std cane, rollator in house. THR January. Pt has walk in shower 1 grab bar, shower chair, std toilet seat getting handrails. R hand dominent. Was driving until had CVA. Pt very active in community and likes to play cards in her card club. - Objective Objective/Observation: decreased coordination and strength R UE - ROM ROM Comments: BUE WFL - Strength Nuclear Station Operator: R 30#, L 40# Lateral Pinch: R 4#, L 4# Tripod Pinch: R 2#, L 4# Strength Comments: MMT BUE R UE 3+/5, L UE 4-/5 - Edema Other: No edema noted - Sensation Sensation Comments: Numbness/Tingling bilateral hands. Pt had prior to stroke. - Nine Hole Peg Right: 45.5 seconds Left: 32.8 seconds Comments: Right Hand dominent - DASH-Disabilities of Arm, Shoulder& Hand DASH Sum: 71 - Goals Goal:: Pt will progress w/ R UE strength 4/5 to assist with BADL's independently and carry a grocery bag with her R hand by d/c from OT services. Pt will progress w/ R hand big data hadoop developer strength from 30# to 40# by d/c from OT services. Goal:: Pt will be able to grasp a spoon and fork correctly with her R hand to complete self feeding tasks independently without spillage. Goal:: Pt will be able to write first/last name legibly with regular pen 3/4 trials. Goal:: Pt will be able to manipulate fasteners (buttons, snaps, zippers) independently by d/c from OT services. Pt/caregiver will be educated on DME/AE, adaptive techniques to assist with BADLs and increase pts safety with good understanding and demo 100%x Goal:: Pt will be educated on R UE HEP with good understanding and demo 100%x. - Rehabilitation General Assessment: Pt demonstrates decreased R UE generalized strength, R hand big data hadoop developer/pinch strength. Pt demonstrates decreased coordination of R hand to write legibly and complete fine motor skills for BADLs. Pt would benefit from direct occupational therapy services to increase R UE strength, R hand big data hadoop developer/pinch strength, educate on R UE HEP, increase R hand fine motor coordination skills for legible handwriting and independence with BADLs. Rehabilitation Potential: Excellent - Anticipated Interventions Anticipated Interventions: Strengthening, Modalities, Joint Protection/Energy Conservation, Fine Motor Coord/Luis Antonio, Neuro Reeducation, ADL Training, Education re assistive Equipment, Caregiver Training, Home Program - Visit Plan Frequency: 2x /Week Duration: 4-6 Weeks General Plan: Pt would benefit from direct occupational therapy services to increase R UE strength, R hand big data hadoop developer/pinch strength, educate on R UE HEP, increase R hand fine motor coordination skills for legible handwriting and independence with BADLs. TEXT: Thank you for the opportunity to evaluate your patient. For Medicare and Medicare HMO plans, please review the plan of care and approve it. It will need to be FAXED BACK to us at [phone] for Medicare purposes. Please let me know if there are questions or concerns regarding this plan of ca re. Physician Signature: Date:
--- NOTE | 2018-09-19 15:23 | HP.OTDCSUM_ITS ---
HP - OT D/C Summary It has been my pleasure to treat YECENIA LAZAR under orders from Di Meeks MD, for the diagnosis of CVA for a total of 5 visit(s). Please see the following information for a summary of their discharge status. - Objective Objective/Function: increase R UE strength and coordination - Goals Patient Goals: Regain Strength, Improve Fine Motor Skills, Use Hand/Wrist/Arm Normally Again, Be More Independent in ADLS, Resume Former Household Respon sibilities (Cooking,Cleaning,Yard, etc.), Resume Hobbies Goal:: Pt will progress w/ R UE strength 4/5 to assist with BADL's independently and carry a grocery bag with her R hand by d/c from OT services. Pt will progress w/ R hand associate professor computer science strength from 30# to 40# by d/c from OT services. Goal:: Pt will be able to grasp a spoon and fork correctly with her R hand to complete self feeding tasks independently without spillage. Goal:: Pt will be able to write first/last name legibly with regular pen 3/4 trials. Goal:: Pt will be able to manipulate fasteners (buttons, snaps, zippers) independently by d/c from OT services. Pt/caregiver will be educated on DME/AE, adaptive techniques to assist with BADLs and increase pts safety with good understanding and demo 100%x Goal:: Pt will be educated on R UE HEP with good understanding and demo 100%x. - Plan Plan: d/c OT services this date. - D/C Information Discharge Comments: Pt has made great progress with OT goals. Pt has progressed with R associate professor computer science strength from 30# to 40#. Her tripod pinch R side has progressed to 5#. Pt demo good ability to legibly write her first and last name on the line in cursive with good baseline orientation. Pt is back to independently dressing and completing BADLs/IADLs. She is driving. She is playing cards 2-3x/wk. Her bicep/tricep strength has progressed 4/5. Pt has been educated on safety precautions and adaptive techniques to assist w/ BADLs. Pt states fastening all fasteners independently at home. Pt states able to cut food without difficulty. Pt has been educated on R UE HEP with theraband with good understanding. Pt no longer requires skilled OT services. D/C OT POC at this time. If there are questions or concerns regarding this patient's occupational therapy, please fell free to call me at [phone]. Thank you for the referral of this patient. Sincerely, Amairani Arellano
--- NOTE | 2018-10-03 13:07 | HP.PTDCSUM ---
HP - PT D/C Summary It has been my pleasure to treat YECENIA LAZAR under orders from Di Meeks MD, for the diagnosis of CVA for a total of 8 visit(s). Discharge Date: 10/03/18 Please see the following information for a summary of their discharge status. - Subjective Subjective: Doing better ..using cane driving - Overall Improvement % Improvement: 70 - Objective Objective/Function: POSTURE: mild foward posture. GAIT: mild foward posture reciprocal barbara with fww. ambulated with cane 2point gait. NEURO: denies parathesia/tingling. MMT: quads/hams 4/5 ,hip flexion 4/5,ankle 4/5. BALANCE: fair +/GOOD- with cane /fww - Goals Goal 1:: Patient to be Independant with HEP Goal Progress: Goal Met Goal 2:: Patient improve gait with community distance with improved functional endurance. Goal Progress: Goal Met Goal 3:: Patinet to improve dynamic balance to good - Goal Progress: Goal Met Goal 4:: Patient to improve CATSIB SCORE BY 5-10 POINTS to improve gait/balance Goal Progress: Goal Met Goal 5:: Patient to improve LFES score by 5-10 points to improve QOL Goal Progress: Goal Met - Plan Plan: D/C - D/C Information Discharge Comments: HEP If there are questions or concerns regarding this patient's physical therapy, please feel free to call me at [phone]. Thank you for the referral of this patient. Sincerely, Gurpreet Gonzalez, PT,
== END 2018-10-03 19:00 | disposition home or self-care (01) ==
LOC: PT 12:30
PROVIDERS: Family Provider Family Medicine; PCP Family Medicine; Referring Provider Internal Medicine; Visit Provider Internal Medicine
DX: Z86.73 Personal history of transient ischemic attack (TIA), and cerebral infarction without residual deficits (principal)
CPT/HCPCS: 97110; 97162; 97166; 97530

== ENCOUNTER → 2018-12-08 11:24 | Outpatient (CLI) | payer MEDICARE, SELFPAY ==
[2018-09-03 09:25] VITALS: BMI 44.9
[2018-12-08 13:00] LABS: AST(SGOT) 22 U/L (15-37); Alanine Aminotransfer ALT/SGPT 19 U/L (13-56); Albumin, Serum 3.6 g/dL (3.2-5.0); Alkaline Phosphatase 83 U/L (45-117); Anion Gap 9 (5-15); BUN 24 mg/dL (7-18); BUN/Creat Ratio 26.9 RATIO (10-20); Bilirubin, Direct 0.18 mg/dL (0.00-0.30); Calcium,Total 9.7 mg/dL (8.5-10.1); Chloride 110 mmol/L (98-107); Cholesterol 120 mg/dL (200); Creatinine, Serum 0.89 mg/dL (0.55-1.02); EST Glomerular Filtration Rate 65 mL/min (>60); Est Glom Filt Rate - Afr Amer 79 mL/min (>60); Globulin 3.6 g/dL (2.2-4.2); Glucose 114 mg/dL (74-106); High Density Lipoprotein 64 mg/dL; Potassium 4.5 mmol/L (3.5-5.1); Protein, Total 7.2 g/dL (6.4-8.2); Sodium Level 143 mmol/L (136-145); Triglycerides 101 mg/dL; Very Low Density Lipoprotein 20 mg/dL (5-40)
[2018-12-08 13:02] LABS: Hemoglobin A1c 8.2 % (4.2-6.3)
--- OUTSIDE RECORDS SUMMARY | 2019-02-11 23:15 | XMS RPT_ITS ---
:1940 Author Organization OHIP Support Name Relationship Address Phone JASVIR ARLINE Unavailable Unavailable + [place] [address] R Unavailable Unavailable Unavailable SWARTZENTRUBER, ADELE Unavailable [address] + [place] [address] JASVIR, ARLINE Unavailable Unavailable + [place] [address] R Unavailable Unavailable Unavailable SWARTZENTRUBER, ADELE Unavailable [address] + [place] [address] JAVSIR, ARLINE Unavailable Unavailable + [place] [address] R Unavailable Unavailable Unavailable SWARTZENTRUBER, ADELE Unavailable [address] + [place] [address] JASVIR, ARLINE Unavailable Unavailable + [place] [address] R Unavailable Unavailable Unavailable SWARTZENTRUBER, ADELE Unavailable [address] + [place] [address] JASVIR, ARLINE Unavailable Unavailable + [place] [address] R Unavailable Unavailable Unavailable SWARTZENTRUBER, ADELE Unavailable [address] + [place] [address] JASVIR, ARLINE Unavailable [address] + [place] [address] R Unavailable Unavailable Unavailable SWARTZENTRUBER, ADELE Unavailable [address] + [place] [address] JASVIR, ARLINE Unavailable [address] + [place] [address] R Unavailable Unavailable Unavailable SWARTZENTRUBER, ADELE Unavailable [address] + [place] [address] JASVIR, ARLINE Unavailable Unavailable + [place] [address] R Unavailable Unavailable Unavailable SWARTZENTRUBER, ADELE Unavailable [address] + [place] [address] JASVIR, ARLINE Unavailable Unavailable + [place] [address] R Unavailable Unavailable Unavailable SWARTZENTRUBERANUSHKACY Unavailable [address] + [place] [address] JASVIR, ARLINE Unavailable [facility] [address] + [place] [address] R Unavailable Unavailable Unavailable SWARTZENTRUBER ADELE Unavailable [address] + [place] [address] JASVIR, ARLINE Unavailable [address] + [place] [address] R Unavailable Unavailable Unavailable SWARTZENTRDIAMOND ADELE Unavailable [address] + [place] [address] JASVIR, ARLINE Unavailable [facility] [address] + [place] [address] R Unavailable Unavailable Unavailable SWARTZENTRANUSHKA FIELDSCY Unavailable [address] + [place] [address] JASVIR, ARLINE Unavailable [facility] [address] + [place] [address] R Unavailable Unavailable Unavailable SWARTZENTRUBER ADELE Unavailable [address] + [place] [address] JASVIR, ARLINE Unavailable [facility] [address] + [place] [address] R Unavailable Unavailable Unavailable SWARTZENTRANUSHKA FIELDSCY Unavailable [address] + [place] [address] JASVIR, ARLINE Unavailable [facility] [address] + [place] [address] R Unavailable Unavailable Unavailable SWARTZENTRDIAMOND ADELE Unavailable [address] + [place] [address] JASVIR, ARLINE Unavailable [facility] + [place] [address] R Unavailable Unavailable Unavailable SWARTZENTRDIAMOND AEDLE Unavailable [address] + [place] [address] Care Team Providers Name Role Phone Avi Diamond Attending Unavailable Jeanna, [place] Referring Unavailable Tim Lozada Attending Unavailable Lozada, Tim Primary Care Unavailable Jill, Vincent Attending Unavailable Lozada, Tim Primary Care Unavailable Jill, Vincent Admitting Unavailable Jill, Vincent Attending Unavailable Lozada, Tim Primary Care Unavailable Jill, Vincent Referring Unavailable Jill, Vincent Attending Unavailable Jill, Vincent Referring Unavailable Lozada, Tim Primary Care Unavailable Pk Conway Attending Unavailable Lozada, Tim Primary Care Unavailable Lozada, Tim Attending Unavailable Lozada, Tim Primary Care Unavailable Lobo, Avi Attending Unavailable Jill, Vincent Referring Unavailable Lozada, Tim Attending Unavailable Lozada, Tim Primary Care Unavailable Lozada, Tim Primary Care Unavailable Oleghe, Ifijen Admitting Unavailable Asia, Jazz S. Consulting Unavailable Paintsil, [place] Attending Unavailable Oleghe, Ifijen Admitting Unavailable Paintsil, [place] Attending Unavailable Lozada, Tim Primary Care Unavailable Oleghe, Ifijen Consulting Unavailable Oleghe, Ifijen Admitting Unavailable Paintsil, [place] Attending Unavailable Lozada, Tim Primary Care Unavailable Asia, Jazz S. Consulting Unavailable Paintsil, [place] Consulting Unavailable Paintsil, [place] Attending Unavailable Paintsil, [place] Referring Unavailable Lozada, Tim Primary Care Unavailable Paintsil, [place] Attending Unavailable Lozada, Tim Primary Care Unavailable Oleghe, Ifijen Admitting Unavailable Paintsil, [place] Attending Unavailable Lozada, Tim Primary Care Unavailable Asia, Jazz S. Consulting Unavailable Paintsil, [place] Consulting Unavailable Edwin, Michelle Attending Unavailable Oleghe, Ifijen Referring Unavailable PROBLEMS PROBLEMS DATE TYPE CONDITION / CODE ATTENDING STATUS SOURCE 10/05/2018 Unknown Z86.73 - Personal Paintsil, [place] Active [place] history of transient Community ischemic attack (TIA), Hospital and cerebral Repository infarction without residual deficits / Z86.73(ICD-10) 11/06/2018 Unknown I63.89 - Other Lobo, Avi Active [place] cerebral infarction / Community I63.89(ICD-10) Hospital Repository 06/07/2018 Unknown E11.9 - Type 2 LozadaTim vance Active [place] diabetes mellitus Community without complications Hospital / E11.9(ICD-10) Repository 06/28/2018 Unknown 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, Vincent Active [place] primary Community osteoarthritis, left Hospital hip / M16.12(ICD-10) Repository 05/02/2018 Unknown 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 criteria. Please note revised GLUCOSE reference range effective 2017. LAB L501.1000 7-18 mg/dL High BUN 24 LAB L501.1100 0.55-1.02 mg/dL Normal CREAT,SERUM 0.89 Result Comment: The validity of the calculated GFR AND GFRAA in patients over 70 years has not been determined. Clinical correlation is essential. LAB L501.1110 >60 mL/min Normal EST GFR 65 Result Comment: Non- GFR Calc LAB L501.1115 >60 mL/min Normal EST GFR - AA 79 Result Comment: GFR Calc LAB L501.1300 10-20 RATIO High BUN/CRE 26.9 LAB L501.2200 8.5-10.1 mg/dL CA Normal 9.7 LAB L501.5300 136-145 mmol/L NA Normal 143 LAB L501.5600 3.5-5.1 mmol/L K Normal 4.5 LAB L501.5900 98-107 mmol/L High CL 110 LAB L501.6100 21.0-32.0 mmol/L Normal CO2 24.0 LAB L501.6200 5-15 Normal GAP 9 Performed By: #### L500.2500, L500.3400, L500.4100 #### [facility] [address] [place], [address] LIVER PROFILE Collected: 12/08/2018 Status: F Source: [place] 11:29 AM [facility] [place] TYPE CODE TESTS RESULT OUT OF RANGE REFERENCE UNITS LAB L501.1500 6.4-8.2 g/dL Normal T PROT 7.2 LAB L501.1800 3.2-5.0 g/dL Normal ALB 3.6 LAB L501.1950 2.2-4.2 g/dL Normal GLOB 3.6 LAB L501.4100 15-37 U/L Normal AST 22 LAB L501.4305 45-117 U/L Normal ALK P 83 LAB L501.4405 13-56 U/L Normal ALT 19 LAB L501.4600 0.20-1.00 mg/dL Normal T BILI 0.50 LAB L501.4700 0.00-0.30 mg/dL Normal D BILI 0.18 Performed By: #### L500.2500, L500.3400, L500.4100 #### [facility] [address] [place], [place], [id number] LIPID PROFILE Collected: 12/08/2018 Status: F Source: [place] 11[facility] TYPE CODE TESTS RESULT OUT OF RANGE REFERENCE UNITS LAB L501.4900 200 mg/dL Normal CHOL 120 Result Comment: <200 mg/dL Desirable 200-240 mg/dL Borderline >240 mg/dL High Risk LAB L501.5000 mg/dL Normal TRIG 101 Result Comment: The drugs N-Acetylcysteine and Metamizole may falsely depress this assay. Serum Triglycerides Reference Interval Normal <150 mg/dL Borderline high 150 - 199 mg/dL High 200 - 499 mg/dL Very High > or = 500 mg/dL LAB L501.6400 mg/dL Normal HDL 64 Result Comment: The drugs N-Acetylcysteine and Metamizole may falsely depress this assay. Reference Range HDL <40 mg/dL Low HDL Cholesterol HDL >or= 60 mg/dL High HDL Cholesterol LAB L501.6500 0-130 mg/dL Normal LDL 36 LAB L501.6600 5-40 mg/dL Normal VLDL 20 Performed By: #### L500.2500, L500.3400, L500.4100 #### [facility] [address] [place], [address] HEMOGLOBIN A1C Collected: 12/08/2018 Status: F Source: [place] 11:[facility] TYPE CODE TESTS RESULT OUT OF RANGE REFERENCE UNITS LAB L501.9985 4.2-6.3 % High HGB A1C 8.2 Performed By: #### L501.9985 #### [facility] [address] [place], [address] PT D/C SUMMARY (1) Observed: 10/04/2018 Status: F Source: [place] 1:14 PM [facility] [place] [facility] [address] [place] [address] Fax REHABILITATION SERVICES DISCHARGE SUMMARY MR#: [id number] Acct: [id number] Name: YECENIA LAZAR Rep #: [id number] : 1940 78 From: Gurpreet Gonzalez PT, Cert. MDT, OCS Referring Dr.: Di Meeks MD Status: REG RCR Insurance: [employer]LOTTE Carnad [facility] HMO SELF PAY INSURANCE HP - PT D/C Summary It has been my pleasure to treat YECENIA LAZAR under orders from Di Meeks MD, for the diagnosis of CVA for a total of 8 visit(s). Discharge Date: 10/03/18 Please see the following information for a summary of their discharge status. - Subjective Subjective: Doing better ..using cane driving - Overall Improvement % Improvement: 70 - Objective Objective/Function: POSTURE: mild foward posture. GAIT: mild foward posture reciprocal barbara with fww. ambulated with cane 2point gait. NEURO: denies parathesia/tingling. MMT: quads/hams 4/5 ,hip flexion 4/5,ankle 4/5. BALANCE: fair +/GOOD- with cane /fww - Goals Goal 1:: Patient to be Independant with HEP Goal Progress: Goal Met Goal 2:: Patient improve gait with community distance with improved functional endurance. Goal Progress: Goal Met Goal 3:: Patinet to improve dynamic balance to good - Goal Progress: Goal Met Goal 4:: Patient to improve CATSIB SCORE BY 5-10 POINTS to improve gait/balance Goal Progress: Goal Met Goal 5:: Patient to improve LFES score by 5-10 points to improve QOL Goal Progress: Goal Met - Plan Plan: D/C - D/C Information Discharge Comments: HEP If there are questions or concerns regarding this patient's physical therapy, please feel free to call me at [phone]. Thank you for the referral of this patient. Sincerely, Gurpreet Gonzalez PT, <Electronically signed by Gurpreet Gonzalez PT, Cert. MDT, OCS> 10/04/18 1314 CC: Di Meeks MD; Tim Lozada MD JLA Signed OT D/C SUMMARY Observed: 09/20/2018 Status: F Source: [place] 3:26 PM [facility] [place] [facility] [address] [place] [address] Fax REHABILITATION SERVICES DISCHARGE SUMMARY MR#: [id number] Acct: [id number] Name: YECENIA LAZAR Rep #: [id number] : 1940 78 From: Amairani Arellano Referring Dr.: Di Meeks MD Status: REG RCR Eval Date: Discharge Date: HP - OT D/C Summary It has been my pleasure to treat YECENIA LAZAR under orders from Di Meeks MD, for the diagnosis of CVA for a total of 5 visit(s). Please see the following information for a summary of their discharge status. - Objective Objective/Function: increase R UE strength and coordination - Goals Patient Goals: Regain Strength, Improve Fine Motor Skills, Use Hand/Wrist/Arm Normally Again, Be More Independent in ADLS, Resume Former Household Responsibilities (Cooking,Cleaning,Yard, etc.), Resume Hobbies Goal:: Pt will progress w/ R UE strength 4/5 to assist with BADL's independently and carry a grocery bag with her R hand by d/c from OT services. Pt will progress w/ R hand product handler strength from 30# to 40# by d/c from OT services. Goal:: Pt will be able to grasp a spoon and fork correctly with her R hand to complete self feeding tasks independently without spillage. Goal:: Pt will be able to write first/last name legibly with regular pen 3/4 trials. Goal:: Pt will be able to manipulate fasteners (buttons, snaps, zippers) independently by d/c from OT services. Pt/caregiver will be educated on DME/AE, adaptive techniques to assist with BADLs and increase pts safety with good understanding and demo 100%x Goal:: Pt will be educated on R UE HEP with good understanding and demo 100%x. - Plan Plan: d/c OT services this date. - D/C Information Discharge Comments: Pt has made great progress with OT goals. Pt has progressed with R product handler strength from 30# to 40#. Her tripod pinch R side has progressed to 5#. Pt demo good ability to legibly write her first and last name on the line in cursive with good baseline orientation. Pt is back to independently dressing and completing BADLs/IADLs. She is driving. She is playing cards 2-3x/wk. Her bicep/tricep strength has progressed 4/5. Pt has been educated on safety precautions and adaptive techniques to assist w/ BADLs. Pt states fastening all fasteners independently at home. Pt states able to cut food without difficulty. Pt has been educated on R UE HEP with theraband with good understanding. Pt no longer requires skilled OT services. D/C OT POC at this time. If there are questions or concerns regarding this patient's occupational therapy, please fell free to call me at [phone]. Thank you for the referral of this patient. Sincerely, Amairani Arellano <Electronically signed by Amairani Arellano > 09/20/18 1526 CC: Di Meeks MD; Tim Lozada MD YISEL Signed INITAL EVALUATION (1) Observed: 09/07/2018 Status: F Source: [place] - PT 5:50 PM [facility] [place] [facility] [address] [place] [address]. [address] [place] [address] Fax REHABILITATION SERVICES INITIAL EVALUATION MR#: [id number] Acct: [id number] Name: YECENIA LAZAR Rep #: [id number] : 1940 78 From: Gurpreet Gonzalez PT, Cert. MDT, OCS Referring Dr.: Di Meeks MD Status: REG RCR [facility] Patient's Visit Information YECENIA LAZAR is a 78 year old F referred to Physical Therapy by Di Meeks MD with a diagnosis of CVA. 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 Patient had CVA with slurred speech and fell to floor. Patient went to ER [facility] ,then patient had MRI ,CATSCAN found CVA.Patient affect more arm right side weaknes. Patient was hospitalized 3 days and d/c 09/03/18.Patient is on 30 day heart monitor and plan to see neurologist in 3weeks. C/O parathesia hands. Patient use rollator for gait ,ocassioanlly use cane. Patient recently had THR in January 2018. Patient has walkin shower Independant with dressing,bathing. Fine motor deficits.Daughter does cooking and cleaning.Patient recnt CVA has affected QOL .Patient was driving.Patient does water exercises 3xweek. HOME SITUATION: 1story home no steps. SOCIAL: lives with daughter - Objective POSTURE: foward posture knee valgus. GAIT: Ambulates with rollator slow barbara foward posture. NEURO: c/o parathesia hands ,reflexes L3-4,L4-5,L5-S1 2/3. BALANCE: fair+ with fww. MMT: quads/hams 4/5 ,hip flexion 4-/5,ankle 4/5,hip abd 3+/5. STAIRS: ascend/descend steps one steps at a time with rail. ENDURANCE: fair - Balance Scores CATSIB Score (Max score 120 seconds): 35 - Goals Goal 1:: Patient to be Independant with HEP Goal Time Frame: 4-6 Weeks Goal 2:: Patient improve gait with community distance with improved functional endurance. Goal Time Frame: 4-6 Weeks Goal 3:: Patinet to improve dynamic balance to good - Goal Time Frame: 4-6 Weeks Goal 4:: Patient to improve CATSIB SCORE BY 5-10 POINTS to improve gait/balance Goal Time Frame: 4-6 Weeks Goal 5:: Patient to improve LFES score by 5-10 points to improve QOL Goal Time Frame: 4-6 Weeks - Rehabilitation Potential Physical Therapy Diagnosis: This patient had CVA with mild deficits with weakness thus has impairments with gait,balnce and function,endurance thus benifit from skilled PT Rehabilitation Potential: Good - Anticipated Interventions Patient/Client Instruction: Educate patient on: Condition, Plan of Care For the Purpose of:: To decrease pain, To improve muscle performance and motor function, To improve ability to perform ADL's, To increase tolerance to activity/condition/position, To improve performance and independence with ADL's, To decrease level of supervision to perform tasks, To improve ability of physical actions for home/community/work/leisure, To improve gait and locomotor functions, To improve endurance, To improve balance Therapeutic Exercise to Include: Strength training, Endurance training, Balance training, Flexibilty training Comment: LE For the Purpose of:: To improve muscle performance and motor function, To improve ability to perform ADL's, To increase tolerance to activity/condition/position, To improve performance and independence with ADL's, To decrease level of supervision to perform tasks, To improve ability of physical actions for home/community/work/leisure, To improve gait and locomotor functions, To improve ability to perform tasks related to life management Thank you for the opportunity to evaluate your patient. For Medicare and Medicare HMO plans, please review the plan of care and approve it. It will need to be FAXED BACK to us at [phone] for Medicare purposes. Please let me know if there are questions or concerns regarding this plan of care. Physician Signature: Date: <Electronically signed by Gurpreet Gonzalez PT, Cert. MARTHA, OCS> 09/07/18 6649 CC: Di Meeks MD; Tim Lozada MD LUIZ Signed For Medicare only, by signing this I certify the plan of care. Physicians Signature Date OT GENERAL EVALUATION Observed: 09/06/2018 Status: F Source: [place] 3:25 PM [facility] [place] [facility] [address] [place] [address] Fax REHABILITATION SERVICES INITIAL EVALUATION MR#: [id number] Acct: [id number] Name: YECENIA LAZAR Rep #: [id number] : 1940 78 From: Amairani Arellano Referring Dr.: Di Meeks MD Status: REG RCR Insurance: [employer]LOTTE Carnad [facility] HMO Eval Date: SELF PAY INSURANCE Patient's Visit Information YECENIA LAZAR is a 78 year old F, referred to Occupational Therapy by Di Meeks MD, with a diagnosis of CVA. Date of Evaluation: 09/06/18 Occupational Therapist: Amairani Arellano - Subjective Subjective: Pt seen for initial occupational thearpy evaluation after having CVA 09/01/18. Prior to CVA pt was independent with BADLs/IADLs. Pt lives w/ daughter and her family, 1 story house no steps to enter. AMB w/ std cane, rollator in house. THR January. Pt has walk in shower 1 grab bar, shower chair, std toilet seat getting handrails. R hand dominent. Was driving until had CVA. Pt very active in community and likes to play cards in her card club. - Objective Objective/Observation: decreased coordination and strength R UE - ROM ROM Comments: BUE WFL - Strength Corrosion Control Fitter: R 30#, L 40# Lateral Pinch: R 4#, L 4# Tripod Pinch: R 2#, L 4# Strength Comments: MMT BUE R UE 3+/5, L UE 4-/5 - Edema Other: No edema noted - Sensation Sensation Comments: Numbness/Tingling bilateral hands. Pt had prior to stroke. - Nine Hole Peg Right: 45.5 seconds Left: 32.8 seconds Comments: Right Hand dominent - DASH-Disabilities of Arm, Shoulder AND Hand DASH Sum: 71 - Goals Goal:: Pt will progress w/ R UE strength 4/5 to assist with BADL's independently and carry a grocery bag with her R hand by d/c from OT services. Pt will progress w/ R hand product handler strength from 30# to 40# by d/c from OT services. Goal:: Pt will be able to grasp a spoon and fork correctly with her R hand to complete self feeding tasks independently without spillage. Goal:: Pt will be able to write first/last name legibly with regular pen 3/4 trials. Goal:: Pt will be able to manipulate fasteners (buttons, snaps, zippers) independently by d/c from OT services. Pt/caregiver will be educated on DME/AE, adaptive techniques to assist with BADLs and increase pts safety with good understanding and demo 100%x Goal:: Pt will be educated on R UE HEP with good understanding and demo 100%x. - Rehabilitation General Assessment: Pt demonstrates decreased R UE generalized strength, R hand product handler/pinch strength. Pt demonstrates decreased coordination of R hand to write legibly and complete fine motor skills for BADLs. Pt would benefit from direct occupational therapy services to increase R UE strength, R hand product handler/pinch strength, educate on R UE HEP, increase R hand fine motor coordination skills for legible handwriting and independence with BADLs. Rehabilitation Potential: Excellent - Anticipated Interventions Anticipated Interventions: Strengthening, Modalities, Joint Protection/Energy Conservation, Fine Motor Coord/Luis Antonio, Neuro Reeducation, ADL Training, Education re assistive Equipment, Caregiver Training, Home Program - Visit Plan Frequency: 2x /Week Duration: 4-6 Weeks General Plan: Pt would benefit from direct occupational therapy services to increase R UE strength, R hand product handler/pinch strength, educate on R UE HEP, increase R hand fine motor coordination skills for legible handwriting and independence with BADLs. TEXT: Thank you for the opportunity to evaluate your patient. For Medicare and Medicare HMO plans, please review the plan of care and approve it. It will need to be FAXED BACK to us at [phone] for Medicare purposes. Please let me know if there are questions or concerns regarding this plan of care. Physician Signature: Date: <Electronically signed by Amairani Arellano > 09/06/18 1525 CC: Di Meeks MD; Tim Lozada MD SLV Signed For Medicare only, by signing this I certify the plan of care. Physicians Signature Date DISCHARGE SUMMARY Observed: 09/05/2018 Status: F Source: [place] 1:53 PM [facility] Medical Records Department [address] [place], [place] [address] [address] Discharge Summary 09/03/18 1056 MR#: [id number] Acct: [id number] Name: YECENIA LAZAR Rep #: [id number] : 1940 78 From: Di Mekes MD PCP: Tim Lozada MD Status: DIS JUDITH Y Location: [place] [address] ADDENDUM by Di Meeks MD on 09/05/18 at 1353 Code Visit Clarification: Acute stroke, unclear etiology, suspected embolic, needs 30 day event monitor to monitor for arrhythmia such as paroxysmal atrial fibrillation 09/05/18 1353 <Electronically signed by Di Meeks MD> Date Di Meeks MD cc: Di Meeks MD; Tim Lozada MD * Signed ADDENDUM by Di Meeks MD on 09/05/18 at 0744 Code Visit Correction: Date of discharge was 09/03/18 not 09/05/18 09/05/18 0745 <Electronically signed by Di Meeks MD> Date Di Meeks MD cc: Di Meeks MD; Tim Lozada MD * Signed Discharge Date and Diagnosis Date of Admission: 09/01/18 Date of Discharge: 09/05/18 - Primary Discharge Diagnosis Active and Suspected Problems Stroke (Acute) - Secondary Discharge Diagnosis Chronic Problems Hypertension (Chronic) Morbid obesity (Chronic) Hospital Course and Treatment Imaging Results: Clinical Impression(s) from Imaging Studies Brain CT 09/01/18 14:28 IMPRESSION: Mild atrophy no visualized evidence of acute hemorrhage or infarct or edema. Electronically Signed: Meghan Gill MD at 16:17 EDT Tel , Service support , Chest X-Ray 09/01/18 14:28 IMPRESSION: Mild peribronchial thickening suggestive of possible central bronchiectasis and/or bronchitis. There is a least one indeterminate nodule within the left upper lobe that measures 5.4 mm. In comparison to prior study is recommended for consideration for follow-up noncontrast chest CT. Findings are suspicious for underlying chronic lung disease. Mild cardiomegaly. No definitive focal consolidation. Electronically Signed: Meghan Gill MD at 15:53 EDT Tel , Service support , Brain MRI 09/01/18 17:24 IMPRESSION: 1. Acute left parietal white matter lacunar infarct. 2. Chronic white matter ischemic changes. Atrophy. Electronically Signed: Génesis Marlow MD at 20:02 EDT Tel , Service support , Head MRA 09/01/18 17:24 IMPRESSION: Normal MRA of the head Electronically Signed: Génesis Marlow MD at 20:23 EDT Tel , Service support , Neck MRA 09/02/18 07:34 IMPRESSION: Limited examination. No demonstrated occlusion or significant stenosis. Mild atherosclerotic plaque. Further evaluation with sonography can be obtained. Electronically Signed: Marco Salas MD at 13:04 EDT Tel , Service support ,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 demonstrated occlusion or significant stenosis. Mild atherosclerotic plaque. Further evaluation with sonography can be obtained. Electronically Signed: Marco Salas MD at 13:04 EDT Tel , Service support , CC: Di Meeks MD; Tim Lozada MD Rubber Thread Spooler: Signed BEDSIDE GLUCOSE Collected: 09/02/2018 Status: F Source: JOSE 6:46 AM [facility] TYPE CODE TESTS RESULT OUT OF REFERENCE UNITS RANGE LAB L501.080 70-110 mg/dL High BEDSIDE GLU 117 Result Comment: MANAGEMENT OF PATIENT CARE PER NURSING PROTOCOL Performed By: #### L501.080 #### [facility] Point of Care [address] [place], [place] [id number] BEDSIDE GLUCOSE Collected: 09/01/2018 Status: F Source: JOSE 10:03 PM [facility] TYPE CODE TESTS RESULT OUT OF REFERENCE UNITS RANGE LAB L501.080 70-110 mg/dL High BEDSIDE GLU 203 Result Comment: MANAGEMENT OF PATIENT CARE PER NURSING PROTOCOL Performed By: #### L501.080 #### [facility] Point of Care [address] [place] [address] TROPONIN-I Collected: 09/01/2018 Status: F Source: JOSE 9:21 PM [facility] Order Comment: 'TROP' Serial specimen #1, #2 or #3: 3 TYPE CODE TESTS RESULT OUT OF RANGE REFERENCE UNITS LAB L501.4010 <0.045 ng/mL Normal < 0.015 TROPONIN-I Result Comment: TROPONIN-I EXPECTED VALUES <0.045 Negative 0.045 - 0.590 Consistent with Cardiac Damage > OR = 0.600 Critical Value Not every elevated troponin is indicative of MN. These values should be used with clinical judgement in examining the patient's clinical picture for diagnosis. To establish a diagnosis of MN versus myocardial injury, there must be a demonstrated rise and/or fall in the troponin values, in addition to ischemic symptoms, EKG changes, new regional wall motion abnormality, and/or angiographical evidence. PLEASE NOTE: REFERENCE RANGES EDITED 18 Performed By: #### L501.4010 #### [facility] [address] [place], [place], [address] TROPONIN-I Collected: 09/01/2018 Status: F Source: [place] 6:09 PM [facility] Order Comment: 'TROP' Serial specimen #1, #2 or #3: 2 TYPE CODE TESTS RESULT OUT OF RANGE REFERENCE UNITS LAB L501.4010 <0.045 ng/mL Normal < 0.015 TROPONIN-I Result Comment: TROPONIN-I EXPECTED VALUES <0.045 Negative 0.045 - 0.590 Consistent with Cardiac Damage > OR = 0.600 Critical Value Not every elevated troponin is indicative of MN. These values should be used with clinical judgement in examining the patient's clinical picture for diagnosis. To establish a diagnosis of MN versus myocardial injury, there must be a demonstrated rise and/or fall in the troponin values, in addition to ischemic symptoms, EKG changes, new regional wall motion abnormality, and/or angiographical evidence. PLEASE NOTE: REFERENCE RANGES EDITED 18 Performed By: #### L501.4010 #### [facility] [address] [place], [address] HEMOGLOBIN A1C Collected: 09/01/2018 Status: F Source: [place] 6:09 PM [facility] Order Comment: Comments: as add on test TYPE CODE TESTS RESULT OUT OF RANGE REFERENCE UNITS LAB L501.9985 4.2-6.3 % High HGB A1C 7.7 Performed By: #### L501.9985 #### [facility] [address] [place], [place], [address] BRAIN WITHOUT Observed: 09/01/2018 Status: F Source: [place] CONTRAST 5:24 PM [facility] Imaging Services [address] [place] [address] Brain without Contrast MR#: [id number] Acct: [id number] Name: YECENIA LAZAR Rep #: [id number] : 1940 F 78 From: Génesis Marlow MD PCP: Tim Lozada MD Status: ADM JUDITH Study: Brain without Contrast Date of Exam: 09/01/18 Exam# [id number] Ordering Dr: Di Meeks MD STUDY: MRI BRAIN WITHOUT CONTRAST REASON FOR EXAM: Female, 78 years old. Slurred speech, right-sided weakness. TECHNIQUE: Standardized multiplanar fat and water weighted pulse sequences were obtained. COMPARISON: None. FINDINGS: Focal restricted diffusion is noted in the left parietal white matter consistent with acute white matter lacunar infarct. No additional area of acute ischemia is noted. There is no mass, mass effect or midline shift. There is no hemorrhage or territorial infarct. There is mild cerebral atrophy with widening of the extra- axial spaces and ventricular dilatation. There are multiple white matter hyperintensities, distributed throughout the deep white matter tracts of the cerebral hemispheres, consistent with moderate chronic white matter ischemic changes. Normal bilateral basal ganglia. Normal thalami. There is no extra-axial fluid accumulation. Normal flow voids within the major intracranial circulation suggesting patency by spin echo criteria. Normal sella turcica, pituitary gland, infundibular stalk, optic chiasm and hypothalamus. Normal tectal plate and pineal gland. Normal midbrain, charlie and medulla. Normal cerebellum. Normal basal cisterns. Normal bilateral temporal bones. Normal bilateral internal auditory canals. No demonstrated orbital abnormality, within the constraints of a routine brain study. Normal visualized paranasal sinuses. Normal calvarium and skull base. Normal visualized soft tissue structures. Normal visualized upper cervical spine. MRI/Brain without Contrast IMPRESSION: 1. Acute left parietal white matter lacunar infarct. 2. Chronic white matter ischemic changes. Atrophy. Electronically Signed: Génesis Marlow MD at 20:02 EDT Tel , Service support , CC: Di Meeks MD; Tim Lozada MD Rubber Thread Spooler: Signed MRA HEAD ONLY WITHOUT Observed: 09/01/2018 Status: F Source: [place] CONTRAST 5:24 PM [facility] Imaging Services [address] [place] [address] MRA Head ONLY without Contrast MR#: [id number] Acct: [id number] Name: YECENIA LAZAR Rep #: [id number] : 1940 F 78 From: Génesis Marlow MD PCP: Tim Lozada MD Status: ADM JUDITH Study: MRA Head ONLY without Contrast Date of Exam: 09/01/18 Exam# [id number] Ordering Dr: Di Meeks MD STUDY: MRA OF THE HEAD WITHOUT CONTRAST REASON FOR EXAM: Female, 78 years old. Slurred speech. Right-sided weakness. TECHNIQUE: 3-D mubt-fi-chbrtp (TOF) imaging was performed with MIPs. The study was performed unenhanced. COMPARISON: None. FINDINGS: Normal bilateral petrous carotid arteries. Normal right cavernous carotid artery with a normal supraclinoid bifurcation. Normal left cavernous carotid artery with a normal supraclinoid bifurcation. Normal right A1 segments of the anterior cerebral artery. Normal left A1 segments of the anterior cerebral artery. Normal intact anterior communicating artery (ACOM). Normal bilateral A2 segments of the anterior cerebral arteries. Normal right M1 and M2 segments of the middle cerebral arteries, with a normal M1 bifurcation. Normal left M1 and M2 segments of the middle cerebral arteries, with a normal M1 bifurcation. Normal right posterior communicating artery (PCOM). There is non-visualization of the left posterior communicating artery (PCOM). Normal bilateral vertebral arteries. Normal basilar artery with a normal basilar bifurcation. The visualized bilateral superior cerebellar (SCA) arteries are normal. Normal bilateral P1, P2 and visualized P3 segments of the posterior cerebral arteries. There is no demonstrated aneurysm of the [place]. There is no major vessel occlusion or hemodynamically significant stenosis. There is no demonstrated abnormality of the visualized brain. MRI/MRA Head ONLY without Contrast IMPRESSION: Normal MRA of the head Electronically Signed: Génesis Marlow MD at 20:23 EDT Tel , Service support , CC: Di Meeks MD; Tim Lozada MD Rubber Thread Spooler: Signed HISTORY AND PHYSICAL Observed: 09/01/2018 Status: F Source: [place] EXAM 5:04 PM [facility] Medical Records Department [address] [place] [address] History and Physical 09/01/18 1622 MR#: [id number] Acct: [id number] Name: YECENIA LAZAR Rep #: [id number] : 1940 78 From: Di Meeks MD PCP: Tim Lozada MD Status: ADM JUDITH Y Location: [place] [address] Problem List (1) Hypertension Status: Chronic Qualifiers: Hypertension type: essential hypertension Qualified Code(s): I10 - Essential (primary) hypertension (2) Type II diabetes mellitus Status: Acute Qualifiers: Diabetes mellitus terminal carman insulin use: without [facility] use Diabetes mellitus complication status: with unspecified complications Qualified Code(s): E11.8 - Type 2 diabetes mellitus with unspecified complications (3) Morbid obesity Status: Chronic (4) TIA (transient ischemic attack) Status: Acute History of Present Illness Date of Admission: 09/01/18 Chief Complaint: Slurred speech The patient is a 78 year old F with past medical history of type II DM, hypertension, obesity who comes in with complaints of slurred speech ongoing since this morning. Patient lives at home with her daughter and was noted to have slurred speech and right-sided facial droop at 7:15 AM. Patient was reluctant to come to the hospital. Denied any weakness in any part of her body. She typically ambulates with a wheeled walker. Denied any dizziness or chest pain or shortness of breath. Rales in the ED showed temperature of 90 7.8F, heart rate of 91, blood pressure was 180/92, improved to less than 139/48, respiratory rate was 18, SPO2 was 97% on room air CT scan of the head showed atrophy, no acute hemorrhage or infarct seen. Chest x-ray shows no acute cardiopulmonary process. EKG showed left bundle branch block which is new compared to her previous Admitting blood work was essentially unremarkable. Blood glucose was 170, troponins were negative Past Medical History Past Medical History (Chronic Problems): Chronic Problems Hypertension (Chronic) Morbid obesity (Chronic) Allergies No Known Allergies Allergy (Verified 09/01/18 13:14) Home Medications: Ambulatory Orders Medication Instructions Recorded Surgical History: total hip arthroplasty - Bilateral Psychiatric History: No pertinent psych hx CLINICAL SUPPORT MANAGER History: No pertinent CLINICAL SUPPORT MANAGER history Lives: With Family Smoking Status: Never smoker Tobacco Use: Non-smoker Alcohol: None Drugs: None - *Family History Maternal History Items: Dementia Paternal History Items: Cancer - Unknown etiology Review of Systems Constitutional: Denies: Anorexia, Chills, Fever, Malaise, Weakness, Weight Change Eyes: Denies: Blurred vision, Cataracts, Conjunctivae Inflammation, Pain, Redness, Vision Change HEENT: Denies: Difficulty Hearing, Difficulty Swallowing, Head Aches, Hearing Changes, Sinus Congestion, Sinus Drainage, Sore Throat Cardiovascular: Denies: Chest Pain, Claudication, Chest Pressure, Chest Tightness, Orthopnea, Palpitations, Paroxysmal Noc. Dyspnea Respiratory: Denies: Cough, Hemoptysis, Shortness of breath at rest, Shortness of breath upon exertion, Sputum production Gastrointestinal: Denies: Abdominal Pain, Hematemesis, Hematochezia, Nausea, Vomiting Genitourinary: Denies: Dysuria Musculoskeletal: Reports: Shoulder Pain. Denies: Joint Pain, Joint Tenderness Skin: Denies: Rash, Wounds Neurological: Denies: Numbness, Tingling, Focal weakness Psychiatric: Denies: Anxiety, Depression, Homicidal Ideations, Suicidal Ideations Hematologic/ Lymphatic: Denies: Easy Bruising, Easy Bleeding VTE Information - Inpt Only VTE Present on Admission: No VTE Pharm Prophylaxis ordered?: Yes Patient Problems: Active and Suspected Problems Type II diabetes mellitus (Acute) TIA (transient ischemic attack) (Acute) - Physical Exam General: Alert, Oriented x3, Cooperative, No apparent distress, - - Morbidly obese HEENT: Atraumatic, PERRLA, EOMI, Normocephalic Oral: Moist Mucosa Neck: Supple, No JVD, Negative Carotid Bruits Lungs: Clear to auscultation, Normal air movement Cardiovascular: Regular rate, Regular Rhythm, Normal S1, Normal S2, No murmurs Abdomen: Bowel Sounds Present, Soft, Non Tender, Non-Distended, No Hepato-splenomegaly Extremities: No edema Skin: No rashes, No breakdown Musculoskeletal: No Tenderness to Palpation of Joints or Extremities Lymphatic: No Cervical, Supraclavicular, or Inguinal Adenopathy Neurological: Cranial nerves II-XII grossly intact, Neuro grossly intact, Motor Exam 5/5 strength throughout - Except for tenderness over the right shoulder with Psych/Mental Status: Normal Affect, Appropriate Vital Signs Temp Pulse Resp BP Pulse Ox 97.8 F 71 20 H 139/48 H 94 09/01/18 13:12 09/01/18 15:28 09/01/18 15:28 09/01/18 15:28 09/01/18 15:28 Oxygen Delivery Method Room Air Weight: 120.5 kg Body Mass Index (BMI) 47.0 Finger Stick Blood Glucose 161 Laboratory Tests Past 24 Hrs POC Glucose POC Glucose 161 H Assessment/Plan All Active Problems Type II diabetes mellitus (Acute) TIA (transient ischemic attack) (Acute) 78 year old F with past medical history of type II DM, hypertension, obesity who comes in with complaints of slurred speech ongoing since this morning. Patient lives at home with her daughter and was noted to have slurred speech and right-sided facial droop at 7:15 AM. 1. Acute onset of slurred speech, concerning for possible TIA in a patient with multiple risk factors, Initial CT of the brain was negative for acute hemorrhage or infarct Plan: Admit to PCU, monitor on telemetry, MRI of the brain, MRA of the head and neck, lipid profile, HbA1c, neurology consult, continue on home aspirin, add Plavix, 2D echo, PT, OT, ST, to evaluate and treat, follow-up with TIA protocol 2. Hypertension, controlled, continue medications, continue to monitor 3. Type 2 DM, on glimepiride, continue with Accu-Cheks, insulin sliding scale 4. Morbid obesity, BMI 47.1, weight loss, exercise is recommended 5. DVT Prophylaxis with Lovenox subcu Code Visit OBSV E AND M: [id number] Initial observation care 09/01/18 3764 <Electronically signed by Di Meeks MD> Date Di Meeks MD Cosigner Signature: Date (if applicable) CC: Di Meeks MD; Tim Lozada MD Signed EMERGENCY DEPARTMENT Observed: 09/01/2018 Status: F Source: [place] SUMMARY 4:17 PM [facility] Medical Records Department [address] [place] [address] Emergency Department Summary 09/01/18 1611 MR#: [id number] Acct: [id number] Name: YECENIA LAZAR Rep #: [id number] : 1940 78 From: Ashutosh Garsia DO PCP: Tim Lozada MD Status: ADM JUDITH - ER Visit Summary Date of Service: 09/01/18 Chief Complaint: [Paresthesias and speech difficulty] History of Present Illness: The patient is a 78 F [presents to the emergency department with complaint of paresthesias in her hands that is bilateral in which she has had for some time. 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 Patient's daughter is with her in the room and her concern was that patient had slurred speech this morning around 7:15 AM and she appear to have a right-sided facial droop. Patient herself states that she spent 20 minutes in the bedroom trying to get her bra on and just did not feel like her hands were working right. Patient denies any headache. Patient denies any falls other than she was leaning up against a chair this morning when it started to slide and she went down onto her knees and then turn herself onto her buttocks but she did not sustain any injury. Patient had to call EMS to help her up. At this time patient denies any focal weakness. Patient denies any visual changes. Slurred speech is mostly resolved now per family.] Physical Examination: [HEENT-PERRLA, EOMI. Cranial nerves II through XII grossly intact. TMs clear. Mucous membranes moist. No adenopathy. Cardiovascular-regular rate and rhythm without murmur or ectopy Lungs-clear to auscultation, chest wall stable without crepitus or subcu emphysema Abdomen-normoactive bowel sounds, soft, nontender, no rebound or rigidity, no peritoneal signs. Neuro vlgp-obdbmu-sapg and heel li testing within normal limits, negative Romberg, negative for drift, fundi benign. NIH stroke scale 0. Extremities-intact 4, normal range of motion, normal pulses, atraumatic] Test Results: [CBC with differential obtained shows sinus rhythm with a left bundle branch block. Ventricular rate was 82 bpm. CBC with differential count of 10.9, hemoglobin 13, hematocrit 42, platelets 245. Chemistries unremarkable. INR was 1.0. Chest x-ray showed nothing acute. CT scan of the brain without contrast showed chronic changes nothing acute.] Emergency Department Course and Treatment: [] Treatment Plan: [Admit for further workup and evaluation of suspected TIA] Disposition: Admit [] Impression: [TIA] This note was generated with Aramis[employer] dictation software. It may contain incorrect words, spelling, and punctuation that were not noted in review of the chart prior to signing ED Disposition - Plan for ED Patient: Chief Complaint: Neuro S/Sx Referrals: Tim Lozada MD [Primary Care Provider] - What to do if you have Problems For any increased pain, shortness of breath, bleeding, nausea or vomiting, chest pain, or any unexpected problems, contact your Primary Care Provider. Call [facility] ([phone]) or report to the closest Emergency Room. Call 911 if necessary. 09/01/18 9077 <Electronically signed by Ashutosh Garsia DO> Date Ashutosh Garsia DO Cosigner Signature (If Indicated): Date CC: Tim Lozada MD CBC W/DIFF, AUTOMATED Collected: 09/01/2018 Status: F Source: JOSE 2:55 PM [facility] TYPE CODE TESTS RESULT OUT OF RANGE REFERENCE UNITS LAB L100.1000 4.4-11.0 K/mm3 Normal WBC 10.9 LAB L100.1200 4.2-5.4 M/mm3 Normal RBC 4.43 LAB L100.1300 12.0-15.0 g/dl Normal HGB 13.2 LAB L100.1400 37-47 % Normal HCT 41.8 LAB L100.1500 81-99 fL Normal MCV 94.4 LAB L100.1600 27.0-32.0 pg Normal MCH 29.8 LAB L100.1700 32-36 g/gl Low MCHC 31.6 LAB L100.1810 11.6-14.6 % High RDW CV 14.8 LAB L100.1820 35.1-43.9 fl High RDW SD 50.6 LAB L100.1900 150-450 K/mm3 Normal PLT 245 LAB L100.2000 6.2-12.0 fl Normal MPV 12.0 LAB L100.2100 47-70 % Normal NEUT% 68.4 LAB L100.2200 19-41 % Normal LY% 21.5 LAB L100.2300 0-10 % Normal MONO% 7.0 LAB L100.2400 0-5 % Normal EO% 2.7 LAB L100.2500 0-1 % Normal BASO% 0.2 LAB L100.2550 0.0-0.9 % Normal IM GRAN % 0.200 Result Comment: IG% - Immature Granulocytes (promyelocytes, myelocytes and metamyelocytes) > 1% indicates that a LEFT SHIFT is Present. LAB L100.2620 2.0-7.7 X10 3/uL Normal Absolute Neut 7.4 LAB L100.2720 0.83-4.51 X10 3/ul Normal Absolute Lymph 2.34 Performed By: #### L100.0100 #### [facility] [address] [place], [place], [address] PROTHROMBIN TIME W/INR Collected: 09/01/2018 Status: F Source: [place] 2:55 PM [facility] TYPE CODE TESTS RESULT OUT OF RANGE REFERENCE UNITS LAB L300.4150 11.7-14.9 SECONDS Normal PROTIME 13.5 LAB L300.4200 Normal INR 1.0 Performed By: #### L300.3900, L300.4310 #### [facility] [address] [place], [address] PARTIAL THROMBOPLAST Collected: 09/01/2018 Status: F Source: JOSE TIME 2:55 PM [facility] TYPE CODE TESTS RESULT OUT OF RANGE REFERENCE UNITS LAB L300.4310 24.1-36.2 Seconds Normal PTT 28.8 Performed By: #### L300.3900, L300.4310 #### [facility] [address] [place], [place], [address] BASIC METABOLIC Collected: 09/01/2018 Status: F Source: JOSE PROFILE (BMP) 2:55 PM [facility] TYPE CODE TESTS RESULT OUT OF RANGE REFERENCE UNITS LAB L501.0100 74-106 mg/dL High GLU 170 Result Comment: Fasting Glucose result greater than or equal to 126 mg/dL suggests DIABETES MELLITUS per A.D.A. criteria. Please note revised GLUCOSE reference range effective 2017. LAB L501.1000 7-18 mg/dL High BUN 22 LAB L501.1100 0.55-1.02 mg/dL Normal CREAT,SERUM 0.94 Result Comment: The validity of the calculated GFR AND GFRAA in patients over 70 years has not been determined. Clinical correlation is essential. LAB L501.1110 >60 mL/min Normal EST GFR 61 Result Comment: Non- GFR Calc LAB L501.1115 >60 mL/min Normal EST GFR - AA 74 Result Comment: GFR Calc LAB L501.1255 ml/min Normal Estimated CRCL 40.80 LAB L501.1300 10-20 RATIO High BUN/CRE 23.4 LAB L501.2200 8.5-10 mg/dL Normal .1 CA 9.2 LAB L501.5300 136-14 mmol/L Normal 5 NA 139 LAB L501.5600 3.5-5. mmol/L Normal 1 K 4.1 LAB L501.5900 98-107 mmol/L Normal CL 106 LAB L501.6100 21.0-3 mmol/L Normal 2.0 CO2 27.0 LAB L501.6200 5-15 Normal GAP 6 Performed By: #### L500.2500, L501.4010 #### [facility] [address] [place], [address] TROPONIN-I Collected: 09/01/2018 Status: F Source: [place] 2:55 PM [facility] TYPE CODE TESTS RESULT OUT OF RANGE REFERENCE UNITS LAB L501.4010 <0.045 ng/mL Normal < 0.015 TROPONIN-I Result Comment: TROPONIN-I EXPECTED VALUES <0.045 Negative 0.045 - 0.590 Consistent with Cardiac Damage > OR = 0.600 Critical Value Not every elevated troponin is indicative of MN. These values should be used with clinical judgement in examining the patient's clinical picture for diagnosis. To establish a diagnosis of MN versus myocardial injury, there must be a demonstrated rise and/or fall in the troponin values, in addition to ischemic symptoms, EKG changes, new regional wall motion abnormality, and/or angiographical evidence. PLEASE NOTE: REFERENCE RANGES EDITED 18 Performed By: #### L500.2500, L501.4010 #### [facility] [address] [place], [address] CHEST 1 VIEW Observed: 09/01/2018 Status: F Source: [place] 2:29 PM [facility] Imaging Services [address] [place] [address] Chest 1 View MR#: [id number] Acct: [id number] Name: YECENIA LAZAR Rep #: [id number] : 1940 F 78 From: Meghan Gill MD PCP: Tim Lozada MD Status: REG ER Study: Chest 1 View Date of Exam: 09/01/18 Exam# [id number] Ordering Dr: Ashutosh Garsia DO STUDY: X-RAY CHEST REASON FOR EXAM: Female, 78 years old. Pain TECHNIQUE: Single AP portable view of the chest. COMPARISON: None. FINDINGS: There is mild peribronchial thickening. There is interstitial thickening and small space lucency suspicious for possible emphysematous change. There is a 5.4 mm nodule in the left upper lobe. There is no demonstrated pleural abnormality. Normal size heart. Normal mediastinum and ishmael. Normal visualized pulmonary arteries. Normal visualized aortic arch and descending thoracic aorta. There are diffuse degenerative changes of the visualized thoracic spine. Normal visualized ribs, clavicles, and shoulders. There is no demonstrated abnormality of the visualized soft tissue structures of the upper abdomen. RAD/Chest 1 View IMPRESSION: Mild peribronchial thickening suggestive of possible central bronchiectasis and/or bronchitis. There is a least one indeterminate nodule within the left upper lobe that measures 5.4 mm. In comparison to prior study is recommended for consideration for follow-up noncontrast chest CT. Findings are suspicious for underlying chronic lung disease. Mild cardiomegaly. No definitive focal consolidation. Electronically Signed: Meghan Gill MD at 15:53 EDT Tel , Service support , CC: Tim Lozada MD; Ashutosh Garsia DO Rubber Thread Spooler: Signed BRAIN/HEAD WITHOUT Observed: 09/01/2018 Status: F Source: [place] CONTRAST 2:29 PM [facility] Imaging Services [address] [place] [address] Brain/Head without Contrast MR#: [id number] Acct: [id number] Name: YECENIA LAZAR Rep #: [id number] : 1940 F 78 From: Meghan Gill MD PCP: iTm Lozada MD Status: REG ER Study: Brain/Head without Contrast Date of Exam: 09/01/18 Exam# [id number] Ordering Dr: Ashutosh Garsia DO STUDY: CT BRAIN WITHOUT CONTRAST REASON FOR EXAM: Female, 78 years old. TIA slurred speech status post fall RADIATION DOSAGE (If Supplied By Facility): CTDIvol = ( 44.99 ) mGy, DLP = ( 745.49 ) mGycm TECHNIQUE: Transaxial CT imaging of the brain was performed without administration of intravenous contrast material. Individualized dose optimization techniques were used for this CT. COMPARISON: None. FINDINGS: Normal soft tissue structures. Normal calvarium. There is mild cerebral atrophy with widening of the extra- axial spaces and ventricular dilatation. There are areas of decreased attenuation within the white matter tracts of the supratentorial brain, consistent with microvascular disease changes. Normal basal ganglia and thalami. Normal brainstem. There is mild cerebellar atrophy. There is no intracranial hemorrhage. There are no findings of an acute ischemic infarction. Normal visualized paranasal sinuses. CT/Brain/Head without Contrast IMPRESSION: Mild atrophy no visualized evidence of acute hemorrhage or infarct or edema. Electronically Signed: Meghan Gill MD at 16:17 EDT Tel , Service support , CC: Tim Lozada MD; Ashutosh Garsia DO Rubber Thread Spooler: Signed BEDSIDE GLUCOSE Collected: 09/01/2018 Status: F Source: [place] 2:28 PM [facility] TYPE CODE TESTS RESULT OUT OF REFERENCE UNITS RANGE LAB L501.080 70-110 mg/dL High BEDSIDE GLU 161 Result Comment: MANAGEMENT OF PATIENT CARE PER NURSING PROTOCOL Performed By: #### L501.080 #### [facility] Point of Care [facility] [place] [address] BASIC METABOLIC Collected: 06/07/2018 Status: F Source: [place] PROFILE (BMP) 10:31 AM [facility] TYPE CODE TESTS RESULT OUT OF RANGE REFERENCE UNITS LAB L501.0100 74-106 mg/dL High GLU 158 Result Comment: Fasting Glucose result greater than or equal to 126 mg/dL suggests DIABETES MELLITUS per A.D.A. criteria. Please note revised GLUCOSE reference range effective 2017. LAB L501.1000 7-18 mg/dL High BUN 20 LAB L501.1100 0.55-1.02 mg/dL Normal CREAT,SERUM 0.87 Result Comment: The validity of the calculated GFR AND GFRAA in patients over 70 years has not been determined. Clinical correlation is essential. LAB L501.1110 >60 mL/min Normal EST GFR 67 Result Comment: Non- GFR Calc LAB L501.1115 >60 mL/min Normal EST GFR - AA 81 Result Comment: GFR Calc LAB L501.1300 10-20 RATIO High BUN/CRE 22.9 LAB L501.2200 8.5-10.1 mg/dL CA Normal 9.0 LAB L501.5300 136-145 mmol/L NA Normal 141 LAB L501.5600 3.5-5.1 mmol/L K Normal 4.3 LAB L501.5900 98-107 mmol/L CL Normal 107 LAB L501.6100 21.0-32.0 mmol/L Normal CO2 27.0 LAB L501.6200 5-15 Normal GAP 7 Performed By: #### L500.2500, L500.3400, L500.4100 #### [facility] [address] [facility] [place], [place], [id number] LIVER PROFILE Collected: 06/07/2018 Status: F Source: [place] 10:31 AM [facility] TYPE CODE TESTS RESULT OUT OF RANGE REFERENCE UNITS LAB L501.1500 6.4-8.2 g/dL Normal T PROT 7.4 LAB L501.1800 3.2-5.0 g/dL Normal ALB 3.3 LAB L501.1950 2.2-4.2 g/dL Normal GLOB 4.1 LAB L501.4100 15-37 U/L Normal AST 20 LAB L501.4305 45-117 U/L Normal ALK P 103 LAB L501.4405 13-56 U/L Normal ALT 17 LAB L501.4600 0.20-1.00 mg/dL Normal T BILI 0.30 LAB L501.4700 0.00-0.30 mg/dL Normal D BILI 0.06 Performed By: #### L500.2500, L500.3400, L500.4100 #### [facility] [address] [place], [place], [id number] LIPID PROFILE Collected: 06/07/2018 Status: F Source: [place] 10:31 AM [facility] TYPE CODE TESTS RESULT OUT OF RANGE REFERENCE UNITS LAB L501.4900 200 mg/dL Normal CHOL 194 Result Comment: <200 mg/dL Desirable 200-240 mg/dL Borderline >240 mg/dL High Risk LAB L501.5000 mg/dL High TRIG 238 Result Comment: The drugs N-Acetylcysteine and Metamizole may falsely depress this assay. Serum Triglycerides Reference Interval Normal <150 mg/dL Borderline high 150 - 199 mg/dL High 200 - 499 mg/dL Very High > or = 500 mg/dL LAB L501.6400 mg/dL Normal HDL 53 Result Comment: The drugs N-Acetylcysteine and Metamizole may falsely depress this assay. Reference Range HDL <40 mg/dL Low HDL Cholesterol HDL >or= 60 mg/dL High HDL Cholesterol LAB L501.6500 0-130 mg/dL Normal LDL 93 LAB L501.6600 5-40 mg/dL High VLDL 48 Performed By: #### L500.2500, L500.3400, L500.4100 #### [facility] [address] [place], [address] MICROALB:CREAT Collected: 06/07/2018 Status: F Source: [place] RATIO,RANDOM UR 10:31 AM [facility] TYPE CODE TESTS RESULT OUT OF RANGE REFERENCE UNITS LAB L501.1200 NO RANGE EST. mg/dL Normal UR CREAT 53.50 LAB L502.0500 NO RANGE EST. mg/L Normal 9.6 MICROALBUMIN ,UR LAB L502.0600 <30 mg/g CRE mg/g CRE Normal 17.9 MALB:CREAT Performed By: #### L502.0250 #### [facility] [address] [place], [address] VENOUS DUPLEX LOWER Observed: 02/24/2018 Status: F Source: [place] EXTREMITY 7:03 AM [facility] Cardiovascular Services [address] [place] [address] Venous Duplex US, Unilateral 02/23/18 1520 MR#: [id number] Acct: [id number] Name: YECENIA LAZAR Rep #: [id number] : 1940 77 From: Miguel Ángel Stallings MD Attending Dr: Pk Conway MD Status: REG CLI Ordering Dr: Pk Conway MD Date: 02/23/18 Location: CVS Sex: F C Admitted: Reason For Study: LEG SWELLING RIGHT LEFT CFV is compressible, spontaneous, phasic, GSV is normal. competent and demonstrates normal CFV is compressible, spontaneous, phasic, augmentation. competent, and demonstrates normal Procedure augmentation. Exam performed in department. FV is compressible, spontaneous, phasic, A preliminary report was called and/or faxed competent and demonstrates normal to Dr. Conway. augmentation. POP V is compressible, spontaneous, phasic, competent and demonstrates normal augmentation. T/P Trunk is compressible. PTV is compressible. LT PerV is compressible. Interpretation Summary Deep veins of the left lower extremity are patent and compressible segmentally. There is no evidence of left lower extremity deep vein thrombosis. Valvular competence appears intact within the proximal deep venous system on the left . The left greater saphenous vein appears patent and compressible segmentally. Ordering Physician: Pk Conway Referring Physician: iTm Lozada Performed By: Lacey Le RVT 02/24/18 0703 Date Miguel Ángel Stallings MD CC: Pk Conway MD; Tim Lozada MD Date Dictated: 02/23/18 1520 Date Transcribed: 02/24/18 0703 Rubber Thread Spooler: Signed STOOL Observed: 02/24/2018 Status: F Source: [place] LACTOFERRIN/WBC 12:00 AM [facility] Order Date: 02/23/18 Order Info: 68905-2 - LACQUAL Order Info: 625-4 - CUS Order Info: 0038-2 - C DIFF Stool Lacto/WBC Normal Reference Range = Negative Fecal WBC Lactoferrin Positive: Fecal WBC Lactoferrin present Performed By: #### M100.0605, M100.6796, M100.637 #### [facility] [address] [place], [address] Observed: 02/24/2018 Status: F Source: [place] CDIFF (MOLECULAR) 12:00 AM [facility] Order Date: 02/23/18 Order Info: 05220-7 - LACQUAL Order Info: 625-4 - [facility] Order Info: 0038-2 - C DIFF Cdiff-Molecular Normal Reference Range = Negative C. Diff DNA Negative- No toxigenic C. Diff DNA Detected NAAT METHOD Testing was performed using nucleic acid amplification Performed By: #### M100.0605, M100.6796, M100.637 #### [facility] [address] [place], [address] Observed: 02/24/2018 Status: F Source: [place] ENTERIC PATHOGEN 12:00 AM [facility]POSITORY Order Date: 02/23/18 Order Info: [id number] - LACQUAL Order Info: 625-4 - [facility] Order Info: 0038-2 - C DIFF EP PANEL STOOL Not detected for Campylobacter group, Salmonella species, Shigella species, Vibrio Group, Yersinia enterocolitica, EHEC (Shiga Toxin 1, Shiga Toxin 2), Norovirus Gl/Gll, and Rotavirus A. Other common stool pathogens are not detected on this panel include: Aeromonas/Plesiomonas or parasites. Order testing for these organisms separately if suspected. This is an amplified DNA test which makes it both specific and sensitive.Normal Reference Range = Not Detected CAMPYLOBACTER Not Detected Salmonella Not Detected Shigella sp. Not Detected Shiga Toxin Not Detected Yersinia Not Detected VIBRIO Not Detected Norovirus Not Detected Rotavirus Not Detected Performed By: #### M100.0605, M100.6796, M100.637 #### [facility] [address] [place], [address] Observed: 02/24/2018 Status: F Source: [place] OVA AND PARASITES 12:00 AM [facility] Order Date: 02/23/18 Order Info: 39591-1 - OP O + P OVA AND PARASITES EXAM, ROUTINE These results were obtained using wet preparation(s) and trichrome stained smear. This test does not include testing for Crytosporidium parvum, Cyclospora, or Microsporidia. TESTING PERFORMED AT [facility]. ORIGINAL REPORT ON FILE IN LAB CONTAINS ADDITIONAL TEST SITE INFORMATION. Ova/Parasite Exam NO OVA, CYSTS, OR PARASITES FOUND. Performed By: #### M600.5000 #### [facility] [address] [place], [address] INITAL EVALUATION (1) Observed: 02/17/2018 Status: F Source: [place] - PT 10:04 AM [facility] [place] [address] Fax REHABILITATION SERVICES INITIAL EVALUATION MR#: [id number] Acct: [id number] Name: YECENIA LAZAR Rep #: [id number] : 1940 77 From: Rodolfo Powell PT, ATC Referring Dr.: Vincent Melchor MD Status: REG RCR Insurance: [facility] [employer] SELF PAY INSURANCE Patient's Visit Information YECENIA LAZAR is a 77 year old F referred to Physical Therapy by MD CHARAN Mckinley with a diagnosis of L SREE. Date of Evaluation: 02/17/18 Physical Therapist: Rodolfo Powell, PT, - Visit Plan Frequency: 2-3x /Week Duration: 4-6 Weeks Plan: L hip stretching and strengthening, balance and proprio, gait training, nustep, and HEP - Subjective Subjective: DOS: 02/14/18. Pt notes a chronic Hx of L hip pain for several years. Pt notes she is much more functional now and can walk much more upright secondary to having this surgery. No sleep diff with pain meds. No T or N in L LE. Pt reports she had a R SREE performed several years ago. Pt reports she lives with family. No steps in this house. 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 Pt reports her major goal is to be able to drive her grandkids to school breonna. 1/10 pain at rest, 6/10 at worst (walking fast). Pt has used a walker for the past couple years due to pain. No Hx of falls. - Pain L hip Pain Intensity (Out of 10): 1 Pain Intensity Range: 6 - Objective Neuro: B LE sensation is WNL to light touch. B pat tendon reflex= 1/3. ROM: L LE is moderately limited. MMT: R LE 5/5 throguhout. L LE 3/5 throughout and painful. Gait: Pt was able to walk from the waiting room to the treatment room approx 120' until having to rest. Pt uses a walker for AD. - Goals Goal 1:: Decrease L hip pain x 50% to aid with sleep Goal Time Frame: 4-6 Weeks Goal 2:: Increase L hip strength x 1 grade to aid with IADL's Goal Time Frame: 4-6 Weeks Goal 3:: Pt will be able to ambulate greater than 300 feet with LRD to aid with community ambulation Goal Time Frame: 4-6 Weeks Goal 4:: I with HEP Goal Time Frame: 4-6 Weeks - Rehabilitation Potential Physical Therapy Diagnosis: L hip pain, weakness, and limited gait distance secondary to L SREE Rehabilitation Potential: Good - Anticipated Interventions Patient/Client Instruction: Educate patient on: Condition, Plan of Care For the Purpose of:: To improve self management Therapeutic Exercise to Include: Strength training, Endurance training, Balance training, Gait and locomotor training, Dynamic Lumbar Stabilization For the Purpose of:: To decrease pain, To increase ROM, To improve muscle performance and motor function Cryotherapy (ice pack, ice massage): Yes For the Purpose of:: To decrease pain Thank you for the opportunity to evaluate your patient. For Medicare and Medicare HMO plans, please review the plan of care and approve it. It will need to be FAXED BACK to us at [phone] for Medicare purposes. Please let me know if there are questions or concerns regarding this plan of care. Physician Signature: Date: <Electronically signed by Rodolfo Powell PT, ATC> 02/17/18 1004 CC: Tim Lozada MD; Vincent Melchor MD [facility] Signed For Medicare only, by signing this I certify the plan of care. Physicians Signature Date BEDSIDE GLUCOSE Collected: 02/15/2018 Status: F Source: [place] 4:12 PM [facility] TYPE CODE TESTS RESULT OUT OF RANGE REFERENCE UNITS LAB L501.080 70-110 mg/dL Normal BEDSIDE GLU 90 Result Comment: MANAGEMENT OF PATIENT CARE PER NURSING PROTOCOL Performed By: #### L501.080 #### [facility] Point of Care [address] [place] [address] [place] [address] BEDSIDE GLUCOSE Collected: 02/15/2018 Status: F Source: [place] 11:24 AM [facility] TYPE CODE TESTS RESULT OUT OF REFERENCE UNITS RANGE LAB L501.080 70-110 mg/dL High BEDSIDE GLU 165 Result Comment: MANAGEMENT OF PATIENT CARE PER NURSING PROTOCOL Performed By: #### L501.080 #### [facility] Point of Care [address] [place] [address] DISCHARGE INSTRUCTION Observed: 02/15/2018 Status: F Source: [place] 7:19 AM [facility] Medical Records Department [address] [place] [address] Instructions for Home/Discharge Instructions 02/15/18 0715 MR#: [id number] Acct: [id number] Name: YECENIA LAZAR Rep #: [id number] : 1940 77 From: Delgado Ha PA-C PCP: Tim Lozada MD Status: ADM IN Discharge Diet: 1800 Calorie Control Diet Discharge Activity: May Not Drive - while taking narcotic pain medications. May shower in (days): 1 - Turned dressing away from water Ice area for (Minutes): 20 - Every 1-2 hours Weight Bearing Status: Weight bearing as tolerated Additional Activity Instructions:: Wear elastic stockings for 2 weeks. DO NOT use alcohol with narcotic pain medication. DO NOT make important decisions while taking narcotic medication. If you have problems with taking your medication (rash, itching, nausea, etc.) call the office at once. Call your doctor if your incision/area has: Increased Pain/ Swelling, Increased Redness, Foul Smelling Discharge Call your doctor if you observe: Fever of 101 or Higher Remove Dressing in (days):: 4 - Okay to change dressing on February 19, 2018 Additional Instructions: Follow-up per [place] [facility] postop instructions Do not take baby aspirin while taking regular dose aspirin Do not take tramadol while taking oxycodone Allergies/Adverse Reactions: Allergies No Known Allergies Allergy (Verified 01/30/18 13:04) Medications to take at Discharge Glimepiride [Amaryl] 4 mg PO BID 01/30/18 L.acidoph,Paracasei, B.lactis [Probiotic] 1 each PO BID 01/30/18 Multivit with Calcium,Iron,Min [Multiple Vitamins For Women] 1 each PO DAILY 01/30/18 Oxybutynin [Ditropan] 5 mg PO BID 02/14/18 Acetaminophen [Tylenol] 1,000 mg PO Q8 #90 tab 02/15/18 Aspirin 325 mg PO BIDCM #30 tab 02/15/18 Famotidine [Pepcid] 20 mg PO DAILY #30 tab 02/15/18 Oxycodone [Oxyir] 5 - 10 mg PO Q4H PRN PRN 5 Days #60 tab 02/15/18 Senna/Docusate Sodium [Senokot-S] 2 tab PO BID #20 tab 02/15/18 The following prescriptions were given: Oxycodone [Oxyir] 5 - 10 mg PO Q4H PRN PRN 5 Days #60 tab PRN Reason: Mod-Severe Pain (-08/30) Acetaminophen [Tylenol] 1,000 mg PO Q8 #90 tab Famotidine [Pepcid] 20 mg PO DAILY #30 tab Aspirin 325 mg PO BIDCM #30 tab Senna/Docusate Sodium [Senokot-S] 2 tab PO BID #20 tab Primary Care Physician: Tim Lozada MD [Primary Care Provider] - Please Follow Up With: home health physical therapy Please Follow Up With: Delgado Ha PA-C When: 02/27/18 @ 10:00 am 02/15/18 0719 <Electronically signed by Delgado Ha PA-C> Date Delgado Ha PA-C CC: Tim Lozada MD BEDSIDE GLUCOSE Collected: 02/15/2018 Status: F Source: [place] 6:58 AM [facility] TYPE CODE TESTS RESULT OUT OF REFERENCE UNITS RANGE LAB L501.080 70-110 mg/dL High BEDSIDE GLU 207 Result Comment: MANAGEMENT OF PATIENT CARE PER NURSING PROTOCOL Performed By: #### L501.080 #### [facility] Point of Care [address] [place], [place] [address] [place], [place] [address] CBC-COMPLETE BLOOD CNT Collected: 02/15/2018 Status: F Source: [place] NO DIFF 5:38 AM [facility] TYPE CODE TESTS RESULT OUT OF RANGE REFERENCE UNITS LAB L100.1000 4.4-11.0 K/mm3 High WBC 15.3 LAB L100.1200 4.2-5.4 M/mm3 Low RBC 3.74 LAB L100.1300 12.0-15.0 g/dl Low HGB 11.6 LAB L100.1400 37-47 % Low HCT 35.6 LAB L100.1500 81-99 fL Normal MCV 95.2 LAB L100.1600 27.0-32.0 pg Normal MCH 31.0 LAB L100.1700 32-36 g/gl Normal MCHC 32.6 LAB L100.1810 11.6-14.6 % Normal RDW CV 14.1 LAB L100.1820 35.1-43.9 fl High RDW SD 47.2 LAB L100.1900 150-450 K/mm3 Normal PLT 215 LAB L100.2000 6.2-12.0 fl High MPV 12.2 Performed By: #### L100.0500 #### [facility] [address] [place], [address] BASIC METABOLIC Collected: 02/15/2018 Status: F Source: [place] PROFILE ([facility]) 5:38 AM [facility] TYPE CODE TESTS RESULT OUT OF RANGE REFERENCE UNITS LAB L501.0100 74-106 mg/dL High GLU 237 Result Comment: Glucose result greater than or equal to 200 mg/dL suggests DIABETES MELLITUS per A.D.A. criteria. Please note revised GLUCOSE reference range effective 2017. LAB L501.1000 7-18 mg/dL High BUN 24 LAB L501.1100 0.55-1.02 mg/dL Normal CREAT,SERUM 1.00 Result Comment: The validity of the calculated GFR AND GFRAA in patients over 70 years has not been determined. Clinical correlation is essential. LAB L501.1110 >60 mL/min Low EST GFR 57 Result Comment: Non- GFR Calc LAB L501.1115 >60 mL/min Normal EST GFR - AA 69 Result Comment: GFR Calc LAB L501.1255 ml/min Normal Estimated CRCL 40.68 LAB L501.1300 10-20 RATIO High BUN/CRE 24.0 LAB L501.2200 8.5-10 mg/dL Normal .1 CA 8.5 LAB L501.5300 136-14 mmol/L Normal 5 NA 137 LAB L501.5600 3.5-5. mmol/L Normal 1 K 4.4 LAB L501.5900 98-107 mmol/L Normal CL 105 LAB L501.6100 21.0-3 mmol/L Normal 2.0 CO2 23.0 LAB L501.6200 5-15 Normal GAP 9 Performed By: #### L500.2500 #### [facility] [address] [place], [address] BEDSIDE GLUCOSE Collected: 02/14/2018 Status: F Source: [place] 10:33 PM [facility] TYPE CODE TESTS RESULT OUT OF REFERENCE UNITS RANGE LAB L501.080 70-110 mg/dL High BEDSIDE GLU 374 Result Comment: MANAGEMENT OF PATIENT CARE PER NURSING PROTOCOL Performed By: #### L501.080 #### [facility] Point of Care [address] [place] [address] BEDSIDE GLUCOSE Collected: 02/14/2018 Status: F Source: [place] 5:22 PM [facility] TYPE CODE TESTS RESULT OUT OF REFERENCE UNITS RANGE LAB L501.080 70-110 mg/dL High BEDSIDE GLU 260 Result Comment: MANAGEMENT OF PATIENT CARE PER NURSING PROTOCOL Performed By: #### L501.080 #### [facility] Point of Care [address] [place] [address] BEDSIDE GLUCOSE Collected: 02/14/2018 Status: F Source: [place] 2:53 PM [facility] TYPE CODE TESTS RESULT OUT OF REFERENCE UNITS RANGE LAB L501.080 70-110 mg/dL High BEDSIDE GLU 220 Result Comment: MANAGEMENT OF PATIENT CARE PER NURSING PROTOCOL Performed By: #### L501.080 #### [facility] Point of Care [address] [place] [address] OPERATIVE REPORT Observed: 02/14/2018 Status: F Source: [place] 1:34 PM [facility] Medical Records Department [address] [address] Operative Report 02/14/18 1331 MR#: [id number] Acct: [id number] Name: YECENIA LAZAR Ange Rep #: [id number] : 1940 77 From: Vincent Melchor MD PCP: Tim Lozada MD Status: ADM IN Location: [address] Report of Operation Date of Procedure: 02/14/18 Pre-Operative Diagnosis: Left hip primary osteoarthritis Post-Operative Diagnosis: Left hip primary osteoarthritis Surgery/Procedure Performed:: Left direct anterior total hip replacement Description of Surgical Findings:: Stable hip with equal leg lengths cabinet installer: Delgado Ha Type of Anesthesia:: Spinal Anesthesiologist: Husdon Smith Special Medications: 2 g Ancef, 1 g TXA at incision, 1 g TXA closure, 10 mg Decadron, joint cocktail (5 mg Duramorph, 30 mL of 0.5% Ropivicaine, 1000 units of epinephrine, 30 mg of Toradol) Specimen's removed: Bony cuts Estimated Blood Loss (mL): 250 Fluids Replaced: 1000 mL crystalloid Description of Procedure: Components used: 1. Accolade 2 [place] femoral stem size 4 127 2. [place] trident acetabular shell size 50 mm 3. Flip X3 polyethylene F 4. Flip Biolox delta 36mm, -5mm femoral head Brief history operative indications: 77 yo f who failed conservative measures for their hip osteoarthritis. X-rays were consistent with osteoarthritis including joint space narrowing, osteophyte formation and subchondral cysts. Total hip replacement was discussed with the patient with risks and benefits including but not limited to blood loss, DVTs, PEs, neurovascular damage, dislocation, general risks of anesthesia including loss of life. Patient demonstrated an understanding medical clearance is obtained the patient was consented for surgery. Procedure: On the date of procedure the patient's L hip was marked in the preoperative area. Patient was then taken back to the operating room where anesthesia assumed control of the C-spine and airway and administered anesthetic. Patient was transferred to the operating table and placed in the supine position. The hips were placed at the break of the bed and a sacral bump was placed. The L lower extremity was then prepped out in a sterile fashion using chlorhexidine while the surgeon scrubbed. The PA was vital in the positioning of the patient. Upon reentering the room the L lower extremity was draped in the standard orthopedic fashion and the incision was marked. A timeout was called and everyone agreed upon the side, the site, the procedure be performed, antibody given, and patient's identity. At this time incision was made through skin, subcutaneous tissue, and fat down to fascia. The fascia was then incised and the TFL was retracted laterally. A retractor was placed on the lateral border of the femoral neck. Attention was directed to the inferior portion of the approach and all crossing vessels were identified and appropriately coagulated. A retractor was then placed on the medial portion of the femoral neck. The anterior capsule was then cleared of all soft tissue and then H shaped capsulotomy was made. The retractors were then placed inside the capsule. The femoral neck was identified and a cleanup cut was made. At this time a power corkscrew was used to remove the femoral head. Attention was then turned toward the acetabulum where the soft tissues were appropriately retracted and the acetabulum was sequentially reamed to 49 mm. A 50 mm cup was then selected and impacted into place. Acetabular liner was impacted into place and locking mechanism was verified. The position of the acetabular cup was then verified under live fluoroscopy. Attention was then turned to the femur. Soft tissue releases on the medial and lateral femoral neck were appropriately done, the leg was externally rotated and lateralized. A Hoff retractor was placed medially and proximally to the greater trochanter this allowed appropriate visualization and exposure of the femoral canal. Rongeour was then used to remove excess lateral bone. A canal finder and entry broach were used to open the proximal canal. Once we verified we were down the femoral canal we subsequently broached up to a size 4 femur. The appropriate neck was placed in the previously selected head was trialed with a -5 mm neck. Traction was pulled and the hip was reduced with internal rotation. Once it was appropriately reduced and stability was checked. There was minimal shuck, equal leg lengths and appropriate stability with hyperextension and external rotation as well as with 90 flexion and internal rotation. Fluoroscopy was then also used to verify the position of the components and leg lengths using the contralateral side for comparison. The trial components were then dislocated the proximal femur was again exposed and the components were removed from the wound. The final components were verified and opened. The wound was copiously irrigated out with normal saline. The acetabulum was checked for any residual debris. The final components were placed and impacted. Traction and internal rotation were again used to reduce the hip. After adequate reduction the hip remained stable with appropriate leg lengths. The final components were once again checked with live fluoroscopy and were found to be satisfactory. The wound was then copiously irrigated with normal saline once more, and hemostasis was obtained. Closure was then done using #1 Vicryl runner to close the fascia. A 2-0 vicryl interuppted sutures were used to close the subcutaneous skin. A 3-0 Monocryl and Steri-Strips were used for final skin closure. A Silverlon dressing was placed. Patient was awakened by anesthesia and transferred to the [place]. Patient was then transferred to the PACU for recovery. Postoperative plan: Patient will get 24 hours postop antibiotics. Patient will get in-house physical therapy and will be weight-bear as tolerated. Patient will follow up in office in 2 weeks for a wound check and x-rays. During the course of the procedure the physician assistant case manager played a vital role. His intimate knowledge of my steps in the procedure aided in safe and expedient completion of the procedure. The PA played a vital rolls in positioning particularly in obtaining the appropriate positioning of the sacral bump. The PA was also vital in the retraction of soft tissues during the exposure and especially the femoral work as this is a vital part of the procedure to prevent complications and fractures. The PA was also vital and protecting soft tissues during times of bony cuts and reaming. He also played a vital role in closure with my direct supervision. The PA was also important during reduction and dislocation of the joint and trials intraoperatively. Grafts/Implants Used: [place] - Complications None - Admit VTE Documentation VTE Present on Admission: No VTE Mechan Device Prophylaxis: SCD's, Thigh High JORDIN Hose VTE Pharm Prophylaxis ordered?: Yes 02/14/18 8492 <Electronically signed by Vincent Melchor MD> Date Vincent Melchor MD CC: Tim Lozada MD; Vincent Melchor MD Signed BEDSIDE GLUCOSE Collected: 02/14/2018 Status: F Source: [place] 9:38 AM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
== END ==
PROVIDERS: Family Provider Family Medicine; PCP Family Medicine; Visit Provider Family Medicine
DX: E11.9 Type 2 diabetes mellitus without complications (principal)
CPT/HCPCS: 36415; 80048; 80061; 80076; 83036

== ENCOUNTER → 2019-09-28 10:16 | Outpatient (CLI) | payer MEDICARE, SELFPAY ==
[2018-09-03 09:25] VITALS: BMI 44.9
[2019-09-28 13:35] LABS: Anion Gap 10 (5-15); BUN 23 mg/dL (7-18); BUN/Creat Ratio 21.1 RATIO (10-20); Calcium,Total 9.1 mg/dL (8.5-10.1); Chloride 107 mmol/L (98-107); Cholesterol 116 mg/dL (200); Creatinine, Serum 1.09 mg/dL (0.55-1.02); EST Glomerular Filtration Rate 51 mL/min (>60); Est Glom Filt Rate - Afr Amer 62 mL/min (>60); Glucose 150 mg/dL (74-106); High Density Lipoprotein 63 mg/dL; Potassium 4.3 mmol/L (3.5-5.1); Sodium Level 141 mmol/L (136-145); Triglycerides 100 mg/dL; Very Low Density Lipoprotein 20 mg/dL (5-40)
== END ==
PROVIDERS: Family Provider Family Medicine; PCP Family Medicine; Referring Provider Family Medicine; Visit Provider Family Medicine
DX: E11.9 Type 2 diabetes mellitus without complications (principal)
CPT/HCPCS: 36415; 80048; 80061

== ENCOUNTER → 2019-10-10 13:39 | Outpatient (CLI) | payer MEDICARE, SELFPAY ==
[2019-10-10 15:43] LABS: ALB/GLOB Ratio 0.9 RATIO (0.9-2.4); AST(SGOT) 20 U/L (15-37); Alanine Aminotransfer ALT/SGPT 23 U/L (13-56); Albumin, Serum 3.6 g/dL (3.2-5.0); Alkaline Phosphatase 89 U/L (45-117); Anion Gap 9 (5-15); BUN 21 mg/dL (7-18); BUN/Creat Ratio 22.6 RATIO (10-20); Calcium,Total 9.2 mg/dL (8.5-10.1); Chloride 109 mmol/L (98-107); Creatinine, Serum 0.93 mg/dL (0.55-1.02); EST Glomerular Filtration Rate 62 mL/min (>60); Est Glom Filt Rate - Afr Amer 75 mL/min (>60); Globulin 4.2 g/dL (2.2-4.2); Glucose 119 mg/dL (74-106); Potassium 4.1 mmol/L (3.5-5.1); Protein, Total 7.8 g/dL (6.4-8.2); Sodium Level 143 mmol/L (136-145)
== END ==
PROVIDERS: Family Provider Family Medicine; PCP Family Medicine; Referring Provider Family Medicine; Visit Provider Nurse Practitioner Adult Health
DX: R53.83 Other fatigue (principal)
CPT/HCPCS: 36415; 80053

== ENCOUNTER → 2020-05-26 11:32 | Outpatient (CLI) | payer MEDICARE, SELFPAY ==
[2018-09-03 09:25] VITALS: BMI 44.9
[2020-05-26 13:36] LABS: Anion Gap 8 (5-15); BUN 22 mg/dL (7-18); BUN/Creat Ratio 23.3 RATIO (10-20); Chloride 109 mmol/L (98-107); Cholesterol 131 mg/dL (200); Creatinine, Serum 0.94 mg/dL (0.55-1.02); EST Glomerular Filtration Rate 61 mL/min (>60); Est Glom Filt Rate - Afr Amer 73 mL/min (>60); Glucose 271 mg/dL (74-106); High Density Lipoprotein 61 mg/dL; Potassium 3.9 mmol/L (3.5-5.1); Sodium Level 142 mmol/L (136-145); Triglycerides 190 mg/dL; Very Low Density Lipoprotein 38 mg/dL (5-40)
== END ==
PROVIDERS: PCP Family Medicine; Visit Provider Family Medicine
DX: E11.9 Type 2 diabetes mellitus without complications (principal)
CPT/HCPCS: 36415; 80048; 80061

== ENCOUNTER → 2022-04-02 | Outpatient (CLI) | payer MEDICARE, SELFPAY ==
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
== END | disposition home or self-care (01) ==
LOC: MTRAD 10:21
PROVIDERS: PCP Family Medicine; Referring Provider Family Medicine; Visit Provider Family Medicine
DX: J20.9 Acute bronchitis, unspecified (principal)
CPT/HCPCS: 71046

== ENCOUNTER → 2022-09-01 | Outpatient (CLI) | payer MEDICARE, SELFPAY ==
[2022-09-01 15:36] LABS: Anion Gap 7 (5-15); BUN 21 mg/dL (7-18); BUN/Creat Ratio 20.2 RATIO (10-20); Calcium,Total 8.6 mg/dL (8.5-10.1); Chloride 108 mmol/L (98-107); Cholesterol 80 mg/dL (200); Creatinine, Serum 1.04 mg/dL (0.55-1.02); EST Glomerular Filtration Rate 54 mL/min (>60); Est Glom Filt Rate - Afr Amer 65 mL/min (>60); Glucose 151 mg/dL (74-106); High Density Lipoprotein 51 mg/dL; Potassium 4.5 mmol/L (3.5-5.1); Sodium Level 142 mmol/L (136-145); Triglycerides 71 mg/dL; Very Low Density Lipoprotein 14 mg/dL (5-40)
== END | disposition home or self-care (01) ==
LOC: MFPLAB 12:04
PROVIDERS: PCP Family Medicine; Referring Provider Family Medicine; Visit Provider Family Medicine
DX: E11.9 Type 2 diabetes mellitus without complications (principal); R32 Unspecified urinary incontinence
CPT/HCPCS: 36415; 80048; 80061

== ENCOUNTER → 2022-09-07 | Outpatient (CLI) | payer MEDICARE, SELFPAY ==
[2022-09-07 18:11] LABS: Absolute Lymphocyte Count 2.92 X10^3/uL (0.83-4.51); Absolute Neutrophil Count 10.4 X10^3/uL (2.0-7.7); Basophil# 0.07 X10^3/uL; Basophil% 0.5 % (0-1); Eosinophils% 3.3 % (0-5); Hematocrit 28.9 % (37-47); Lymphocyte # 2.92 X10^3/ul (0.83-4.51); Mean Corp Hgb Conc 27.7 g/dL (32-36); Mean Corpuscular Hgb 23.5 pg (27.0-32.0); Mean Corpuscular Volume 84.8 fL (81-99); Mean Platelet Vol. 10.9 fl (6.2-12.0); Monocyte# 1.36 X10^3/uL; Monocyte% 8.9 % (0-10); NRBC Flagged by Analyzer 0 % (0-5); Neutrophil # 10.42 X10^3/uL (2.7-7.7); Neutrophil % 67.8 % (47-70); Platelet Count 464 K/mm3 (150-450); RBC Distribution Width CV 18.4 % (11.6-14.6); RBC Distribution Width SD 55.8 fl (35.1-43.9); Red Blood Count 3.41 M/mm3 (4.2-5.4); White Blood Count 15.4 K/mm3 (4.4-11.0)
[2022-09-07 18:53] LABS: ALB/GLOB Ratio 0.5 RATIO (0.9-2.4); AST(SGOT) 18 U/L (15-37); Alanine Aminotransfer ALT/SGPT 16 U/L (13-56); Albumin, Serum 2.4 g/dL (3.2-5.0); Alkaline Phosphatase 77 U/L (45-117); Anion Gap 5 (5-15); BUN 18 mg/dL (7-18); BUN/Creat Ratio 20.2 RATIO (10-20); Calcium,Total 9.2 mg/dL (8.5-10.1); Chloride 108 mmol/L (98-107); Creatinine, Serum 0.89 mg/dL (0.55-1.02); EST Glomerular Filtration Rate 64 mL/min (>60); Est Glom Filt Rate - Afr Amer 78 mL/min (>60); Globulin 5.1 g/dL (2.2-4.2); Glucose 132 mg/dL (74-106); Potassium 4.2 mmol/L (3.5-5.1); Protein, Total 7.5 g/dL (6.4-8.2); Sodium Level 141 mmol/L (136-145); Thyroid Stim Hormone (TSH) 1.18 uIU/mL (0.358-3.74)
[2022-09-08 12:23] LABS: Hepatitis C Antibody Non-Reactive (Nonreactive); Vitamin D,25 Hydroxy 37.7 ng/mL
== END | disposition home or self-care (01) ==
LOC: POLAB3 16:50
PROVIDERS: PCP Family Medicine; Visit Provider Family Medicine Geriatric Medicine
DX: E55.9 Vitamin D deficiency, unspecified (principal); R53.83 Other fatigue; N39.0 Urinary tract infection, site not specified; Z13.89 Encounter for screening for other disorder
CPT/HCPCS: 36415; 80053; 82306; 84443; 85025; 86803; 87077; 87086; 87088; 87186

== ENCOUNTER 2022-09-08 10:39 | Outpatient (CLI) | payer MEDICARE, SELFPAY ==
--- NOTE | 2022-09-08 10:42 | RAD_ITS ---
STUDY: X-RAY CHEST REASON FOR EXAM: Female, 82 years old. Adult failure to thrive TECHNIQUE: PA and lateral views of the chest. COMPARISON: 04/02/2022 FINDINGS: Lungs are expanded with chronic interstitial changes, and stable granulomas calcifications. Subtle development of bibasilar opacification suggesting pulmonary vascular congestion or pneumonitis since the previous study. Follow-up recommended to assure resolution. Normal size heart. Normal mediastinum and ishmael. Normal visualized pulmonary arteries. There is atherosclerotic calcification of the aortic arch with tortuosity. Normal visualized thoracic spine. There is degenerative osteoarthritis of the bilateral shoulders with old ununited right clavicle fracture. There is no demonstrated abnormality of the visualized soft tissue structures of the upper abdomen. RAD/Chest PA and Lateral IMPRESSION: Chronic interstitial changes with superimposed opacifications in both mid and lower lung parker suggesting pulmonary vascular congestion or pneumonitis. Follow-up recommended to assure resolution Electronically Signed: Smith Mcelroy MD at 11:24 EDT ,
--- NOTE | 2022-09-08 10:42 | RAD_ITS ---
STUDY: X-RAY - ABDOMEN/PELVIS REASON FOR EXAM: Female, 82 years old. Adult failure to thrive TECHNIQUE: 4 AP films COMPARISON: None. FINDINGS: Normal visualized lung bases. There is a moderate amount of colonic fecal material. There is no demonstrated free abdominal air. The visualized liver, spleen and kidneys are grossly normal in size and morphology. Normal soft tissue structures. Age consistent SI joint arthrosis, bilateral hip replacements free of complication RAD/Abdomen Single View IMPRESSION: No acute findings, retained stool Electronically Signed: Smith Mcelroy MD at 11:25 EDT ,
== END 2022-09-08 23:59 | disposition home or self-care (01) ==
PROVIDERS: PCP Family Medicine Geriatric Medicine; Referring Provider Family Medicine Geriatric Medicine; Visit Provider Family Medicine Geriatric Medicine
DX: R62.7 Adult failure to thrive (principal); D50.9 Iron deficiency anemia, unspecified
CPT/HCPCS: 36415; 71046; 74018; 82607; 82728; 82747; 83540; 83550; 85014; 85025; 85045; 86850; 86900; 86901; 86920; 86922

== ENCOUNTER → 2022-09-08 | Outpatient (CLI) | payer MEDICARE, SELFPAY ==
[2022-09-08 13:23] LABS: Absolute Lymphocyte Count 1.97 X10^3/uL (0.83-4.51); Absolute Neutrophil Count 8.6 X10^3/uL (2.0-7.7); Basophil# 0.05 X10^3/uL; Basophil% 0.4 % (0-1); Eosinophil# 0.45 X10^3/uL; Eosinophils% 3.7 % (0-5); Hematocrit 28.2 % (37-47); Hemoglobin 7.9 g/dL (12.0-15.0); Lymphocyte # 1.97 X10^3/ul (0.83-4.51); Lymphocyte % 16.1 % (19-41); Mean Corpuscular Hgb 23.6 pg (27.0-32.0); Mean Corpuscular Volume 84.2 fL (81-99); Monocyte# 1.15 X10^3/uL; Monocyte% 9.4 % (0-10); NRBC Flagged by Analyzer 0 % (0-5); Neutrophil # 8.57 X10^3/uL (2.7-7.7); POSITIVE MORPHOLOGY YES; Platelet Count 426 K/mm3 (150-450); RBC Distribution Width CV 18.5 % (11.6-14.6); RBC Distribution Width SD 55.3 fl (35.1-43.9); RET-HE 19.2 pg (30-35); Red Blood Count 3.35 M/mm3 (4.2-5.4); Reticulocyte Count 2.96 % (0.5-1.5); White Blood Count 12.2 K/mm3 (4.4-11.0)
[2022-09-08 13:32] LABS: Differential Indicated SCAN CRITERIA MET
[2022-09-08 13:56] LABS: Vitamin B12 769 pg/mL (211-911)
[2022-09-08 14:01] LABS: Ferritin 6 ng/mL (8-252); Iron 23 ug/dL (50-170); Iron Binding Capacity,Total 386 ug/dL (250-450)
[2022-09-08 14:24] LABS: Anisocytosis 2+; Platelet Estimate ADEQUATE (ADEQ); Red Cell Morphology N CHROM NORMAL (NORM C&C)
[2022-09-10 14:09] LABS: Folate, RBC (Hct) Test 26.6 % (34.0-46.6)
[2022-09-12 15:49] LABS: Folates, RBC Test 2165 ng/mL (>498)
== END | disposition home or self-care (01) ==
LOC: POLAB3 12:03
PROVIDERS: PCP Family Medicine Geriatric Medicine; Visit Provider Family Medicine Geriatric Medicine
DX: D50.9 Iron deficiency anemia, unspecified (principal)
CPT/HCPCS: 36415; 82607; 82728; 82747; 83540; 83550; 85014; 85025; 85045

== ENCOUNTER 2022-09-09 13:54 | Observation (INO) | payer MEDICARE, SELFPAY ==
[2022-09-09] VITALS (12 sets, daily range): BP systolic 113–150; BP diastolic 50–70; PULSE 75–84; RESP 15–22; TEMP 36.2–36.8; O2SAT 87–98; BMI 46.0; BMI 45.4
--- NOTE | 2022-09-09 14:11 | CM.ED ---
Addendum entered by Paris Enrique 09/09/22 14:22: MD Molina updated. Paris AHN Original Note: SW spoke to Kandice in TCU. Patient has insurance that requires PT/OT notes and thus if she needs and is appropriate for TCU she will need to be admitted to [facility]3 or PCU. Paris AHN
--- NOTE | 2022-09-09 14:32 | EKG12_ITS ---
Test Reason : GENERAL Blood Pressure : / mmHG Vent. Rate : 080 BPM Atrial Rate : 080 BPM P-R Int : 174 ms QRS Dur : 124 ms QT Int : 416 ms P-R-T Axes : 047 -44 048 degrees QTc Int : 479 ms Normal sinus rhythm with sinus arrhythmia Left axis deviation Right bundle branch block Minimal voltage criteria for LVH, may be normal variant ( R in aVL ) Abnormal ECG Confirmed by PAT CASTRO, JODIE ([id number]), slot editor RANI SOTELO ([id number]) on 09/13/2022 9:42:25 AM Referred By: Confirmed By:JODIE STEWART MD
--- NOTE | 2022-09-09 14:40 | EDS_ITS ---
HPI History of Present Illness Chief Complaint: General Illness Detail of Chief Complaint: Generalized weakness Informant: patient and family Onset/Context/Timing Onset: Weeks Context: Gradual Onset Timing: Continuous Current Severity: Mild Maximum Severity: Mild Narrative Narrative: 82-year-old female here with her daughter. Recently changed primary care physicians and is now seeing Dr. Triplett. She recently was diagnosed with anemia and today she received 2 units of blood transfusion. She is a history of hypertension, diabetes and a prior stroke. The daughter is here with her since she is currently being treated for UTI which there is a positive culture. And she was sent to the emergency department to be admitted and then get clearance to be placed in the transitional care unit. Prior similar symptoms: Yes Recent Illness/Hospitalization: No PFSH PFSH Medical History Diabetes TIA (transient ischemic attack) Home Medications glimepiride 4 mg tablet 8 mg PO DAILY diabetes 01/30/18 [History Last Taken 09/01/18] acetaminophen 325 mg tablet (Tylenol) 650 mg PO Q6H PRN PRN Mild Pain (1-3)/Temp > 100.7 F 09/03/18 [Rx Last Taken Unknown] atorvastatin 40 mg tablet 40 mg PO QHS ##30 09/03/18 [Rx Last Taken Unknown] clopidogrel 75 mg tablet 75 mg PO DAILY ##30 09/03/18 [Rx Last Taken Unknown] ascorbic acid (vitamin C) 500 mg tablet (Vitamin C) 500 mg PO DAILY 09/09/22 [History Last Taken Unknown] ciprofloxacin HCl 250 mg tablet 250 mg PO BID 09/09/22 [History Last Taken Unknown] fluconazole 150 mg tablet See Rx Instructions .Route .COMPLEX 09/09/22 [History Last Taken Unknown] nystatin 100,000 unit/gram topical powder (Nyamyc) 1 applic topical DAILY 09/09/22 [History Last Taken Unknown] pioglitazone 15 mg tablet 15 mg PO DAILY 09/09/22 [History Last Taken Unknown] polysaccharide iron complex 150 mg iron capsule (Ferrex) 150 mg PO DAILY 09/09 [History Last Taken Unknown] Allergy/AdvReac Type Severity Reaction Status Date / Time No Known Allergies Allergy Verified 09/09/22 13:56 Social History Smoking Status: Never smoker ROS ROS ED ROS Narrative Generalized weakness. Review of Systems ROS Unobtainable: Denies due to encephalopathy Constitutional Constitutional ED: Denies chills or fever(s) Eyes Eyes: Denies blurry vision ENT ENT ED: Denies ear pain Cardiovascular Cardiovascular: Denies chest pain Respiratory/Chest Respiratory/Chest: Denies cough Gastrointestinal Gastrointestinal: Denies abdominal pain Genitourinary Genitourinary ED: Denies dysuria Musculoskeletal Musculoskeletal: Denies arthralgias Integumentary Denies abscess Neurologic Neurologic: Denies headache(s) Psychiatric Psychiatric: Denies anxiety Endocrine Endocrinology: Denies cold intolerance Hematologic/Lymphatic Hematologic/Lymphatic: Reports anemia Allergic/Immunologic Allergic/Immunologic ED: Denies mouth swelling or tongue swelling EXAM Physical Exam Narrative Exam Narrative: 80-year-old female no acute distress. Vital signs stable afebrile. Pulse ox 95% on room air no signs hypoxia. H EENT exam unremarkable. Neck nontender. No JVD. Lungs clear to auscultation bilaterally. Heart regular rhythm no murmur. Abdomen soft and nontender. Extremities moves all 4. 1+ pitting edema both lower extremities. Venous stasis. Neurologically she is awake and alert. Answering questions and following commands. 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 Const Vital Signs: 09/09/22 13:56 09/09/22 14:26 Temperature 97.1 F L Temperature Source Temporal Pulse Rate 77 Respiratory Rate 15 Respiratory Effort Normal Respiratory Pattern Normal Blood Pressure 113/50 L Blood Pressure Mean 71 Pulse Ox 95 Oxygen Delivery Method Room Air Positive well nourished, well developed and obese; Negative for cachectic, contractures or unkempt General Appearance ED: well developed and NAD; Negative for unkempt, cachectic, contractures, cyanotic or diaphoretic Nutritional Appearance: obese; Negative for cachectic HEENT Reports moist mucous membranes; Denies dry mucous membranes Negative for trauma or tenderness Mouth ED: No dry mucous membranes Mouth: No dry mucous membranes Eyes PERRL and EOMs intact bilaterally General Eye ED: Negative for scleral icterus Neck no lymphadenopathy, supple and no JVD General: Negative for tenderness Lymph Lymphatic: Negative for other Chest Wall inspection of chest normal and palpation of chest normal Resp normal respiratory effort and clear to auscultation bilaterally Effort and Inspection: Negative for retractions Auscultation: Negative for rales, rhonchi or wheezes Cardio regular rate, regular rhythm, S1 normal heart sound, S2 normal heart sound and no murmurs Rate: Negative for bradycardia or tachycardic GI normal to inspection, nondistended, normoactive bowel sounds, non-tender, non- distended and no masses; Negative for hepatosplenomegaly Inspection: abdominal distention Auscultation: normoactive bowel sounds Palpation: soft; Negative for tender or guarding Back/Spine no CVA tenderness General Back: Negative for CVA tenderness Cervical Spine: Negative for cervical spine tenderness Thoracic Spine / Upper Back: Negative for thoracic spinal tenderness Extremity Negative for normal to inspection General Extremety ED: Yes edema; Negative for tenderness General Extremity: edema Neuro oriented x3 Sensorium / Orientation: alert; Negative for orientation impaired, lethargic or stuporous Motor Exam: strength 5/5 throughout Psych mental status grossly normal Appearance: Negative for unkempt Attitude: No agitated Mood & Affect: Negative for depressed, anxious or tearful Skin no rashes or lesions noted and no wounds General Skin Exam: Negative for jaundice Lesions: No lesion noted Rashes: No rashes noted Trauma: Negative for abrasion Wounds: Negative for wounds noted MDM MDM MDM Narrative Medical decision making narrative: 82-year-old with generalized weakness. Currently being treated for a UTI. Has been anemic and was transfused 2 units of blood today. Her new primary care ph ysician Dr. Triplett sent her in to be admitted and then be transferred to the TCU once able. Repeat exam at 3:22 PM patient doing well. Hospitalist on page for admission. Discussed with patient and daughter. Plan is to admit to medical surgical unit and then transition to the TCU. Lab Data Attestation: I reviewed the patient's lab results. Lab results narrative: CBC shows a white count 11.3. H&H 9.1 and 31.8. Previously her hemoglobin was around 7.9. She was transfused earlier today. Electrolytes show a gap of 4 normal being creatinine of 15 and 1. Glucose 240 she is diabetic. Her liver enzymes are unremarkable. Labs: Laboratory Results - last 24 hr 09/09/22 09/09/22 14:44 14:44 WBC 11.3 H RBC 3.74 L Hgb 9.1 L Hct 31.8 L MCV 85.0 MCH 24.3 L MCHC 28.6 L RDW Std Deviation 55.3 H RDW Coeff of Naren 18.2 H Plt Count 384 MPV 11.2 Immature Gran % (Auto) 0.700 Neut % (Auto) 67.5 Lymph % (Auto) 16.8 L [place] % (Auto) 9.4 Eos % (Auto) 5.0 Baso % (Auto) 0.6 Absolute Neuts (auto) 7.6 Absolute Lymphs (auto) 1.89 Nucleated RBC % 0.2 Sodium 144 Potassium 4.2 Chloride 107 Carbon Dioxide 33.0 H Anion Gap 4 L BUN 15 Creatinine 1.02 Estim Creat Clear Calc 36.72 Est GFR (MDRD) Af Amer 67 Est GFR (MDRD) Non-Af 55 L BUN/Creatinine Ratio 14.7 Glucose 240 H Calcium 8.7 Total Bilirubin 0.40 AST 21 ALT 17 Alkaline Phosphatase 66 Total Protein 7.0 Albumin 2.3 L Globulin 4.7 H Albumin/Globulin Ratio 0.5 L Radiography Chest X-Ray - ED: 1 View, Read by ED Physician, Read by Radiologist, Mediastinum, Bony Structures and Chronic Changes Diagnostic Testing: Clinical Impression(s) from Imaging Studies Chest X-Ray 09/09/22 14:55 IMPRESSION: Mild improvement since the previous study, continued follow-up recommended to assure complete resolution Electronically Signed: Smith Mcelroy MD at 15:09 EDT , Chest x-ray, portable, single view interpreted by both myself and radiologist shows chronic changes in mild pulmonary edema which has been seen in the past. There is some improvement. No infiltrates. Rhythm Strip Rhythm Strip: Sinus Rhythm Rate: 80 Ectopy: None EKG Initial EKG: Attestation: I personally reviewed and interpreted this EKG as follows: Interpretation: Sinus Rhythm, No Acute Injury Pattern and RBBB Comments: Normal sinus rhythm rate 80 no acute signs of VT or ischemia. Right bundle branch block. Discharge Plan Dx/Rx/DC Orders Clinical Impression: Generalized weakness, Type II diabetes mellitus, Stroke, Adult failure to thrive, Anemia, Acute UTI Disposition Disposition: [facility]
[2022-09-09 14:52] LABS: Absolute Lymphocyte Count 1.89 X10^3/uL (0.83-4.51); Absolute Neutrophil Count 7.6 X10^3/uL (2.0-7.7); Basophil# 0.07 X10^3/uL; Basophil% 0.6 % (0-1); Eosinophil# 0.56 X10^3/uL; Hematocrit 31.8 % (37-47); Hemoglobin 9.1 g/dL (12.0-15.0); Lymphocyte # 1.89 X10^3/ul (0.83-4.51); Lymphocyte % 16.8 % (19-41); Mean Corp Hgb Conc 28.6 g/dL (32-36); Mean Corpuscular Hgb 24.3 pg (27.0-32.0); Mean Platelet Vol. 11.2 fl (6.2-12.0); Monocyte# 1.06 X10^3/uL; Monocyte% 9.4 % (0-10); NRBC Flagged by Analyzer 0.2 % (0-5); Neutrophil % 67.5 % (47-70); Platelet Count 384 K/mm3 (150-450); RBC Distribution Width CV 18.2 % (11.6-14.6); RBC Distribution Width SD 55.3 fl (35.1-43.9); Red Blood Count 3.74 M/mm3 (4.2-5.4); White Blood Count 11.3 K/mm3 (4.4-11.0)
--- NOTE | 2022-09-09 14:55 | RAD_ITS ---
STUDY: X-RAY CHEST REASON FOR EXAM: Female, 82 years old. Weakness TECHNIQUE: Single AP portable view of the chest. COMPARISON: 09/08/2022 FINDINGS: Lungs are expanded with persistent though mildly improved interstitial edema and the lung bases. Continued follow-up recommended to assure complete resolution. Stable chronic interstitial changes and granulomatous calcifications. Normal size heart. Normal mediastinum and ishmael. Normal visualized pulmonary arteries. There is atherosclerotic calcification of the aortic arch with tortuosity. There are diffuse degenerative changes of the visualized thoracic spine. There is degenerative osteoarthritis of the bilateral shoulders. There is no demonstrated abnormality of the visualized soft tissue structures of the upper abdomen. RAD/Chest 1 View (Portable) IMPRESSION: Mild improvement since the previous study, continued follow-up recommended to assure complete resolution Electronically Signed: Smith Mcelroy MD at 15:09 EDT ,
[2022-09-09 15:06] LABS: ALB/GLOB Ratio 0.5 RATIO (0.9-2.4); AST(SGOT) 21 U/L (15-37); Alanine Aminotransfer ALT/SGPT 17 U/L (13-56); Albumin, Serum 2.3 g/dL (3.2-5.0); Alkaline Phosphatase 66 U/L (45-117); Anion Gap 4 (5-15); BUN 15 mg/dL (7-18); BUN/Creat Ratio 14.7 RATIO (10-20); Calcium,Total 8.7 mg/dL (8.5-10.1); Chloride 107 mmol/L (98-107); Creatinine, Serum 1.02 mg/dL (0.55-1.02); EST Glomerular Filtration Rate 55 mL/min (>60); Est Glom Filt Rate - Afr Amer 67 mL/min (>60); Estimated Creatinine Clearance 36.72 ml/min; Globulin 4.7 g/dL (2.2-4.2); Glucose 240 mg/dL (74-106); Potassium 4.2 mmol/L (3.5-5.1); Sodium Level 144 mmol/L (136-145)
--- NOTE | 2022-09-09 15:33 | HP.PCM.HOS_ITS ---
HPI - General General Date of Admission: 09/09/22 Date of Service: 09/09/22 Chief Complaint: Patient states she has a UTI. Anemia, 2 units PRBC today. Generalized weakness, failure to thrive. Leg swelling. HPI Narrative YECENIA LAZAR, is a 82 F who is coming directly after 2 units of PRBC transfusion to ED. She recently changed PCP from Dr. Dean to Dr. Triplett on Tuesday. Patient herself feels that she is gradually declining, decreased functional activity, sleeping more and lethargy. Her hemoglobin was found 7.[address] Triplett ordered 2 units of PRBC. Repeat today is 9.1 g. She denies active GI bleeding including hematemesis melena or hematochezia. She is started on iron sulfate and ascorbic acid. She denies burning micturition or new symptoms in the urine but she is not incontinent. 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 Patient has multiple comorbidities include coronary artery disease status post 2+ stents, diabetes mellitus type 2 and stroke in August 2018. She recalls he had colonoscopy more than 5 years ago but did not recall any significant abnormality. Never had EGD. Patient was told to come to ED as she might need TCU. She was last admitted in August 2018 for slurred speech and found to have acute left parietal stroke in MRI. At that time 2D echo showed EF 55% with stage II diastolic dysfunction and bubble study was negative. Lipid profile showed LDL 103. MRA of head and neck were unremarkable. [facility] Medical History Diabetes TIA (transient ischemic attack) Home Medications glimepiride 4 mg tablet 8 mg PO DAILY diabetes 01/30/18 [History Last Taken 09/08/22] Lactobacillus acidophilus 1 cap PO/SL DAILY GUT HEALTH 09/09/22 [History Last Taken 09/08/22] ascorbic acid (vitamin C) 500 mg tablet (Vitamin C) 500 mg PO DAILY SUPPLEMENT 09/09/22 [History Last Taken 09/08/22] atorvastatin 40 mg tablet 40 mg PO QHS CHOLESTEROL 09/09/22 [History Last Taken 09/08/22] ciprofloxacin HCl 250 mg tablet 250 mg PO BID 09/09/22 [History Last Taken 09/01/22] clopidogrel 75 mg tablet 75 mg PO DAILY BLOOD THINNER 09/09/22 [History Last Taken 09/08/22] fluconazole 150 mg tablet 150 mg PO Q3D 09/09/22 [History Last Taken 09/07/22] multivit with ulnvtmyx-nuuc-OK-lutein 8 mg iron-400 mcg-300 mcg tablet (Centrum Silver Women) 1 tab PO DAILY SUPPLEMENT 09/09/22 [History Last Taken 09/08/22] nystatin 100,000 unit/gram topical powder (Nyamyc) 1 applic topical BID 09/09/22 [History Last Taken Unknown] pioglitazone 15 mg tablet 15 mg PO DAILY 09/09/22 [History Last Taken 09/08/22] polyethylene glycol 3350 17 gram/dose oral powder 17 g PO DAILY STOOL 09/09/22 [History Last Taken 09/08/22] polysaccharide iron complex 150 mg iron capsule (Ferrex) 150 mg PO DAILY 09/09/22 [History Last Taken 09/08/22] terbinafine HCl 1 % topical cream 1 applic topical BID 09/09/22 [History Last Taken Unknown] Allergy/AdvReac Type Severity Reaction Status Date / Time No Known Allergies Allergy Verified 09/09/22 13:56 Social History Smoking Status: Never smoker ROS ROS Narrative Review of system Constitutional: Reports fatigue and weakness, lethargy, and obesity HEENT: Reports systems reviewed and no addt'l complaints, except as documented Respiratory/Chest: Labored breathing today. Mild wheezing. Denies chest pain/tightness. No history of COPD. Gastrointestinal: Chronic constipation. On a stool softener. Patient was told to use any but not comfortable using it. Denies coffee ground emesis, hematemesis or vomiting Genitourinary: Chronic urinary incontinence denies burning urination or new urinary tract symptoms Musculoskeletal: Reports joint pain and limited range of motion. Difficulty in walking and equilibrium Neurologic: Denies seizure-like activity skin: Yeast rash in the lower abdominal region. Endocrinology: Reports systems reviewed and no addt'l complaints, except as documented Hematologic/Lymphatic: Reports systems reviewed and no addt'l complaints, except as documented Rest 14 ROS are negative except as mentioned in HPI Vital Signs Vital Signs Vital Signs: 09/09/22 13:56 09/09/22 14:26 Temperature 97.1 F L Temperature Source Temporal Pulse Rate 77 Respiratory Rate 15 Respiratory Effort Normal Respiratory Pattern Normal Blood Pressure 113/50 L Blood Pressure Mean 71 Pulse Ox 95 Oxygen Delivery Method Room Air Weight Weight: 268 lb Body Mass Index (BMI) 46.0 Physical Exam Narrative Physical exam General: Alert, Oriented x3, Cooperative, morbid obesity BMI 46.0 kg/m? HEENT: Atraumatic, PERRLA, EOMI, Normocephalic Oral: Oral mucosa dry. No Gingival or Mucosal Lesions/ Ulcerations Neck: Supple, No JVD, Negative Carotid Bruits Lungs: Air entry diminished in bilateral lung bases. Bilateral wheezing. Mild labored breathing. Cardiovascular: Regular rate, Regular Rhythm, Normal S1, Normal S2, No murmurs Abdomen: Bowel Sounds Present, Soft, Non Tender, Non-Distended : No renal angle tenderness. No suprapubic tenderness. Extremities: 2+ bilateral bilateral leg edema. Capillary Refill Less than 3 Seconds Skin: No rashes, No breakdown Musculoskeletal: No Tenderness to Palpation of Joints or Extremities. Muscle power 4/5 at major joints of lower extremities. Neurological: Cranial nerves II-XII grossly intact, DTR 2+/4 and Symmetrical, Neuro grossly intact Psych/Mental Status: Flat affect. Results Lab / Micro Data Result Diagrams: 09/09/22 14:44 09/09/22 14:44 Labs: Laboratory Results - last 24 hr 09/09/22 14:44: WBC 11.3 H, RBC 3.74 L, Hgb 9.1 L, Hct 31.8 L, MCV 85.0, MCH 24.3 L, MCHC 28.6 L, RDW Std Deviation 55.3 H, RDW Coeff of Naren 18.2 H, Plt Count 384, MPV 11.2, Immature Gran % (Auto) 0.700, Neut % (Auto) 67.5, Lymph % (Auto) 16.8 L, Island % (Auto) 9.4, Eos % (Auto) 5.0, Baso % (Auto) 0.6, Absolute Neuts (auto) 7.6, Absolute Lymphs (auto) 1.89, Nucleated RBC % 0.2 09/09/22 14:44: Sodium 144, Potassium 4.2, Chloride 107, Carbon Dioxide 33.0 H, Anion Gap 4 L, BUN 15, Creatinine 1.02, Estim Creat Clear Calc 36.72, Est GFR (MDRD) Af Amer 67, Est GFR (MDRD) Non-Af 55 L, BUN/Creatinine Ratio 14.7, Glucose 240 H, Calcium 8.7, Total Bilirubin 0.40, AST 21, ALT 17, Alkaline Phosphatase 66, Total Protein 7.0, Albumin 2.3 L, Globulin 4.7 H, Albumin/Globulin Ratio 0.5 L Rhythm Strip Rhythm Strip: Sinus Rhythm Rate: 80 Ectopy: None Radiology Impression Chest X-Ray 09/09/22 14:55 IMPRESSION: Mild improvement since the previous study, continued follow-up recommended to assure complete resolution Electronically Signed: Smith Mcelroy MD at 15:09 EDT , Assessment & Plan Assessment/Plan (1) UTI (urinary tract infection): (2) Anemia: PLAN: Plan This is a 82-year-old female was admitted for GNR UTI, anemia and renal failure to thrive. 1. Chronic iron deficiency anemia: Patient is being admitted to [facility] floor. Patient iron work-up suggestive of iron deficiency anemia with ferritin 6 and iron saturation 6%. Had 2 units of PRBC transfusion hemoglobin went up from 7.9 to 9.1 g%. Patient looks short of breath and wheezing family fluid overload, probably pulmonary edema from blood transfusion. Chest x-ray mutilative reviewed and shows mild interstitial edema. Lasix 40 mg IV 1 dose ordered. Continue iron supplement ascorbic acid. 2. 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 Patient on Cipro at home changed to ceftriaxone 1 g daily 3. Chronic diastolic heart failure: Patient had echo in August 2018 reported as EF 55% with stage II diastolic function. Patient not on diuretic at home. Evaluate fluid status after 1 dose Lasix. 4. Diabetes mellitus type 2 with hyperglycemia: Accu-Cheks and cover with [place] sliding scale. Lantus 10 subcutaneous daily. Hold glimepiride and Actos. 5. CKD stage IIIb: Patient estimated creatinine clearance is 36 mL/min. Serum creatinine is 1.02. Monitor kidney function, urine output 6. Hypertension: Twelve-lead EKG shows normal sinus rhythm 80 bpm, LAD, RBBB with mild LVH QTC 479 ms. Blood pressure is in normal range Other comorbidities include h left parietal stroke in June 2018 and morbid obesity BMI 46.0 kg/m?. Fasting profile in August 2018 in normal range. Patient does not have a very slow symptoms of stroke VTE prophylaxis, high risk. Lovenox 40 mg subcu daily. Living will/advanced directive/end of life care: Patient doeshave living will or advanced directive. Her daughter near the bedside is power of wire coating machine operator for health. She has advanced directive paper with her. After discussion of benefits/risks procedures involved with full code, DNR CC arrest and DNR CC, the patient opted for DNRCC. She does not want tight mask of BiPAP or CPAP. Patient does not want artificial life support including intubation, tube feed, ventilator and/chest compression, central venous catheter, vasopressor and DC shock if needed Total time spent in [id number] encounter in discussion of advanced directive 16 minutes. Laboratory Results 09/09/22 14:44: WBC 11.3 H, RBC 3.74 L, Hgb 9.1 L, Hct 31.8 L, MCV 85.0, MCH 24.3 L, MCHC 28.6 L, RDW Std Deviation 55.3 H, RDW Coeff of Naren 18.2 H, Plt Count 384, MPV 11.2, Immature Gran % (Auto) 0.700, Neut % (Auto) 67.5, Lymph % (Auto) 16.8 L, Island % (Auto) 9.4, Eos % (Auto) 5.0, Baso % (Auto) 0.6, Absolute Neuts (auto) 7.6, Absolute Lymphs (auto) 1.89, Nucleated RBC % 0.2 09/09/22 14:44: Sodium 144, Potassium 4.2, Chloride 107, Carbon Dioxide 33.0 H, Anion Gap 4 L, BUN 15, Creatinine 1.02, Estim Creat Clear Calc 36.72, Est GFR (MDRD) Af Amer 67, Est GFR (MDRD) Non-Af 55 L, BUN/Creatinine Ratio 14.7, Glucose 240 H, Calcium 8.7, Total Bilirubin 0.40, AST 21, ALT 17, Alkaline Phosphatase 66, Total Protein 7.0, Albumin 2.3 L, Globulin 4.7 H, Albumin/ Globulin Ratio 0.5 L Clinical Impression(s) from Imaging Studies Chest X-Ray 09/09/22 14:55
--- NOTE | 2022-09-09 19:28 | NURSING ---
ot 208
[2022-09-09 19:36] LABS: Bedside Glucose 208 mg/dL (74-106)
[2022-09-09] MEDS: Bisacodyl 10 MG Suppository RC (19:54)
[2022-09-09] MEDS: Furosemide 40 MG/4 ML Vial IV (19:59)
[2022-09-09] MEDS: 0.9% Saline Lock 10 ML Syringe IV ×2 (19:59→20:19)
[2022-09-09] MEDS: Insulin Glargine-YFGN 100 UNIT/ML Pen 10 UNIT SC (20:07)
[2022-09-09] MEDS: Pantoprazole Sodium 40 MG Tablet PO (20:11)
[2022-09-09] MEDS: Ceftriaxone 1 GM/50 ML BAG IV (20:19)
[2022-09-09] MEDS: Insulin Lispro 100 UNIT/ML INSULN.PEN SC (22:47)
[2022-09-09] MEDS: Menthol/Lanolin/Calamine/Znox 113 GM Tube 1 APPLIC TOPICAL (22:48)
[2022-09-09] MEDS: Nystatin Powder 15gm Bottle 1 APPLIC TOPICAL (22:48)
[2022-09-09] MEDS: Senna/Docusate Sodium 1 Tablet 2 TABLET PO (22:49)
[2022-09-09] MEDS: Atorvastatin Calcium 40 MG Tablet PO (22:49)
[2022-09-09 23:30] LABS: Bedside Glucose 245 mg/dL (74-106)
[2022-09-10 06:36] VITALS: BP 141/51; PULSE 79; RESP 22; TEMP 37.2; O2SAT 97
[2022-09-10] MEDS: Menthol/Lanolin/Calamine/Znox 113 GM Tube 1 APPLIC TOPICAL ×2 (06:41→14:24)
[2022-09-10 06:56] LABS: Absolute Lymphocyte Count 2.42 X10^3/uL (0.83-4.51); Absolute Neutrophil Count 6.6 X10^3/uL (2.0-7.7); Basophil# 0.05 X10^3/uL; Basophil% 0.5 % (0-1); Eosinophil# 0.75 X10^3/uL; Eosinophils% 6.8 % (0-5); Hematocrit 30.4 % (37-47); Hemoglobin 8.6 g/dL (12.0-15.0); Lymphocyte # 2.42 X10^3/ul (0.83-4.51); Lymphocyte % 21.8 % (19-41); Mean Corp Hgb Conc 28.3 g/dL (32-36); Mean Corpuscular Hgb 24.5 pg (27.0-32.0); Mean Corpuscular Volume 86.6 fL (81-99); Mean Platelet Vol. 11.3 fl (6.2-12.0); Monocyte# 1.18 X10^3/uL; Monocyte% 10.6 % (0-10); NRBC Flagged by Analyzer 0.2 % (0-5); Neutrophil # 6.63 X10^3/uL (2.7-7.7); Neutrophil % 59.7 % (47-70); POSITIVE COUNT YES; Platelet Count 339 K/mm3 (150-450); RBC Distribution Width CV 18.1 % (11.6-14.6); RBC Distribution Width SD 56.3 fl (35.1-43.9); Red Blood Count 3.51 M/mm3 (4.2-5.4); White Blood Count 11.1 K/mm3 (4.4-11.0)
[2022-09-10 06:59] LABS: Differential Indicated SCAN CRITERIA MET
[2022-09-10 07:12] LABS: Anion Gap 4 (5-15); BUN 14 mg/dL (7-18); BUN/Creat Ratio 15.5 RATIO (10-20); Calcium,Total 8.6 mg/dL (8.5-10.1); Chloride 108 mmol/L (98-107); EST Glomerular Filtration Rate 63 mL/min (>60); Est Glom Filt Rate - Afr Amer 77 mL/min (>60); Estimated Creatinine Clearance 41.62 ml/min; Glucose 110 mg/dL (74-106); Magnesium 2.1 mg/dL (1.6-2.6); Phosphorus 4.7 mg/dL (2.5-4.9); Potassium 4.4 mmol/L (3.5-5.1); Sodium Level 142 mmol/L (136-145)
[2022-09-10 07:13] LABS: Anisocytosis 1+
[2022-09-10 07:15] LABS: Bedside Glucose 116 mg/dL (74-106)
[2022-09-10 07:41] LABS: Hemoglobin A1c 8.7 % (3.8-5.6)
[2022-09-10] MEDS: Insulin Glargine-YFGN 100 UNIT/ML Pen 15 UNIT SC (08:50)
[2022-09-10] MEDS: Nystatin Powder 15gm Bottle 1 APPLIC TOPICAL (08:51)
[2022-09-10] MEDS: Enoxaparin 40 MG/0.4 ML Syringe SC (08:52)
[2022-09-10] MEDS: Polyethylene Glycol 3350 17 GM PACKET PO (08:52)
[2022-09-10] MEDS: Ascorbic Acid 500 MG Tablet PO (08:52)
[2022-09-10] MEDS: Pantoprazole Sodium 40 MG Tablet PO (08:53)
[2022-09-10] MEDS: FLUCONAZOLE 150 MG TABLET PO (08:53)
[2022-09-10] MEDS: Clopidogrel Bisulfate 75 MG Tablet PO (08:53)
[2022-09-10] MEDS: Iron Polysaccharide Complex 150 MG CAPSULE PO (08:53)
[2022-09-10] MEDS: Senna/Docusate Sodium 1 Tablet 2 TABLET PO (08:53)
[2022-09-10] MEDS: Bisacodyl 10 MG Suppository RC (08:59)
[2022-09-10] MEDS: Multivitamins,Ther W-Minerals Tablet 1 TABLET PO (08:59)
[2022-09-10 09:39] VITALS: O2SAT 98
[2022-09-10 09:59] VITALS: BP 113/56; PULSE 79; RESP 20; TEMP 36.6; O2SAT 96
[2022-09-10] MEDS: 0.9% Saline Lock 10 ML Syringe IV ×3 (10:16→11:29)
[2022-09-10] MEDS: Ceftriaxone 1 GM/50 ML BAG IV (10:16)
--- NOTE | 2022-09-10 11:13 | ECHOD_ITS ---
Reason For Study: SOB Procedure This was a 2D Doppler, Color Flow transthoracic echocardiogram. Exam performed portable in patient room. Left Ventricle Normal left ventricle. The estimated ejection fraction is 55-60 %. Right Ventricle Normal right ventricle. The right ventricle is normal in size, function, and thickness. Atria Normal left atrium. Normal right atrium. Mitral Valve There is moderate to severe mitral annular calcification. Mild (1+) mitral valve insufficiency. Tricuspid Valve Normal tricuspid valve. Mild to moderate (1-2+) tricuspid valve insufficiency. Pulmonic Valve The pulmonic valve is not well visualized. Great Vessels Normal aortic root. Pericardium/Pleural No pericardial effusion. Medication Negative bubble study on previous echo. MMode/2D Measurements & Calculations LVIDd: 4.7 cm IVSd: 1.2 cm LVOT diam: 2.0 cm LVIDs: 2.3 cm LVPWd: 1.1 cm LVOT area: 3.1 cm2 FS: 50.5 % Ao root diam: 2.6 cm LAV(MOD-bp): 79.2 ml LVAd ap4: 25.1 cm2 LAV(MOD-bp) Indexed: 36.1 ml/m2 LVLd ap4: 7.5 cm LAV(MOD-sp2): 75.2 ml EDV(MOD-sp4): 67.8 ml LAV(MOD-sp4): 77.8 ml EDV(sp4-el): 70.9 ml LVAs ap4: 10.7 cm2 LVLs ap4: 6.4 cm ESV(MOD-sp4): 16.1 ml ESV(sp4-el): 15.3 ml EF(MOD-sp4): 76.3 % EF(sp4-el): 78.4 % SV(MOD-sp4): 51.8 ml SV(sp4-el): 55.6 ml LA A4 area: 25.5 cm2 LA dimension(2D): 4.7 cm RA A4 area: 12.1 cm2 Doppler Measurements & Calculations MV E max jalen: 122.3 cm/sec Lat Peak E' Jalen: 6.6 cm/sec Med Peak E' Jalen: 5.4 cm/sec MV A max jalen: 159.6 cm/sec E/E' lat: 18.5 E/E' med: 22.7 MV E/A: 0.77 MV V2 max: 170.1 cm/sec MV P1/2t max jalen: 131.2 cm/sec Ao V2 max: 203.1 cm/sec MV max P.6 mmHg MV P1/2t: 108.9 msec Ao max P.5 mmHg MV V2 mean: 96.5 cm/sec Ao V2 mean: 138.2 cm/sec MV mean P.2 mmHg MV dec slope: 353.0 cm/sec2 Ao mean P.5 mmHg MV V2 VTI: 44.6 cm MVA(P1/2t): 2.0 cm2 Ao V2 VTI: 45.4 cm MVA(VTI): 2.5 cm2 LUDWIN(I,D): 2.5 cm2 LUDWIN(V,D): 2.4 cm2 LV V1 max: 157.4 cm/sec SV(LVOT): 112.5 ml PA V2 max: 116.6 cm/sec LV V1 max P.9 mmHg LV V1 mean P.3 mmHg LV V1 mean: 108.9 cm/sec LV V1 VTI: 35.8 cm TR max jalen: 356.2 cm/sec TR max P.8 mmHg ECHO/Echo Complete Interpretation Summary The estimated ejection fraction is 55-60 %. Calcified papillary muscle Ordering Physician: Farideh Butler Referring Physician: Jim Triplett Chi Performed By: Deandra Allred RDCS
[2022-09-10] MEDS: Insulin Lispro 100 UNIT/ML INSULN.PEN SC (11:29)
[2022-09-10] MEDS: Furosemide 40 MG/4 ML Vial IV (11:30)
[2022-09-10 12:05] LABS: Bedside Glucose 152 mg/dL (74-106)
[2022-09-10 14:26] VITALS: BP 111/43; PULSE 99; RESP 18; TEMP 36.7; O2SAT 95
--- NOTE | 2022-09-10 15:15 | PCM.TXEXTCAR ---
Diet Diet Order/Speech Therapy: 09/09/22 18:50 Diet: Consistent Carb - Calorie Controlled Food consistency:: Regular Liquid Consistency:: Regular/Thin How many daily calories?: 1800 calorie Routine Orders/Code Status Suppository Frequency: Daily PRN O2 Liters per Minute: 2 liters and wean as able O2 Frequency: Continuous Keep PO Greater than or Equal to (%): 92 Routine Lab Work: CBC (1 week) and BMP Code Status: DNRCC-A Suggestions for Active Care Change Position every (hours): 2 Hours to sit in a chair: 2 Times a day to sit in chair: 3 Therapies Physical Therapy: Eval and Treat Occupational Therapy: Eval and Treat Problem/Diagnosis (1) UTI (urinary tract infection): Status: Acute Code(s): N39.0 - Urinary tract infection, site not specified (2) Anemia: Status: Acute Code(s): D64.9 - Anemia, unspecified Allergies/Procedures Done in Hospital Allergies No Known Allergies Allergy (Verified 09/09/22 13:56) Procedures: 2-D Echocardiogram Type of Care/Length of Stay Estimated LOS: Convalescent Care Less Than 30 days Type of Care Needed: Skilled Rehab Potential: Fair Prognosis: Fair Additional Orders/Day of Discharge Day of Discharge: 09/10/22 Discharge Plan Admission Admit Date/Time: 09/09/22 16:29 Attending Provider: Farideh Butler Primary Care Provider: Jim Triplett Chi Consulting Providers: Gallo Mccabe Discharge Orders/Prescriptions Prescriptions: No Action glimepiride 4 MG tablet 8 mg PO DAILY pioglitazone 15 mg tablet 15 mg PO DAILY fluconazole 150 mg tablet 150 mg PO Q3D polysaccharide iron complex [Ferrex 150] 150 mg iron capsule 150 mg PO DAILY ciprofloxacin HCl 250 mg tablet 250 mg PO BID ascorbic acid (vitamin C) [Vitamin C] 500 mg Tablet 500 mg PO DAILY nystatin [Nyamyc] 100,000 unit/gram powder 1 applic TOPICAL BID terbinafine HCl 1 % Cream 1 applic TOPICAL BID polyethylene glycol 3350 17 gram/dose powder 17 g PO DAILY Centrum Silver Women 8 mg iron-400 mcg-300 mcg Tablet 1 tab PO DAILY Lactobacillus acidophilus 1 cap PO/SL DAILY atorvastatin 40 MG tablet 40 mg PO QHS clopidogrel 75 MG tablet 75 mg PO DAILY Referrals / Follow Up: Jim Triplett Chi, MD [Primary Care Provider] -
--- NOTE | 2022-09-10 15:17 | DS.PCM_ITS ---
Providers Date of Admission: 09/09/22 Date of Discharge: 09/10/22 Primary Care Physician: Dr. Jim Triplett MD Reason For Visit: FAILURE TO THRIVE, UTI Diagnosis Discharge Diagnosis (1) UTI (urinary tract infection): Status: Acute Code(s): N39.0 - Urinary tract infection, site not specified (2) Anemia: Status: Acute Code(s): D64.9 - Anemia, unspecified Medications at Discharge Home Medications glimepiride 4 mg tablet 8 mg PO DAILY diabetes 01/30/18 Lactobacillus acidophilus 1 cap PO/SL DAILY GUT HEALTH 09/09/22 ascorbic acid (vitamin C) 500 mg tablet (Vitamin C) 500 mg PO DAILY SUPPLEMENT 09/09/22 atorvastatin 40 mg tablet 40 mg PO QHS CHOLESTEROL 09/09/22 ciprofloxacin HCl 250 mg tablet 250 mg PO BID 09/09/22 clopidogrel 75 mg tablet 75 mg PO DAILY BLOOD THINNER 09/09/22 fluconazole 150 mg tablet 150 mg PO Q3D 09/09/22 multivit with aacccagn-jwcm-CU-lutein 8 mg iron-400 mcg-300 mcg tablet (Centrum Silver Women) 1 tab PO DAILY SUPPLEMENT 09/09/22 nystatin 100,000 unit/gram topical powder (Nyamyc) 1 applic topical BID 09/09/22 pioglitazone 15 mg tablet 15 mg PO DAILY 09/09/22 polyethylene glycol 3350 17 gram/dose oral powder 17 g PO DAILY STOOL 09/09/22 polysaccharide iron complex 150 mg iron capsule (Ferrex) 150 mg PO DAILY 09/09/22 terbinafine HCl 1 % topical cream 1 applic topical BID 09/09/22 furosemide 40 mg tablet (Lasix) 40 mg PO DAILY #3 tabs 09/10/22 Hospital Course Operations None Procedures 2-D Echocardiogram and - (Chest x-ray) Summary of Care Provided Minutes Spent on Discharge: 25 Hospital Course: Mrs. Solomon is an 82-year-old white female who came to the emergency department after being transfused 2 units of packed red blood cells for hemoglobin of 7.9 that was ordered by her primary care physician. The patient reported that she was gradually declining with decreased functional activity more sleeping and more lethargy. Her repeat hemoglobin on admission was 9.1. She had no signs of active GI bleeding and was started on iron sulfate as well as vitamin C. She had a recent urine culture which was done on 09/07/2022 which is growing Klebsiella oxytoca which appears to be fairly sensitive with only resistance patterns to ampicillin. She was told by her primary care physician to come the emergency department for placement in the TCU. After her blood transfusion she did unfortunately develop some pulmonary edema which required diuresis. Chest x-ray did show volume overload. She was diuresed with IV Lasix 40 mg IV twice with improved aeration and appearance on chest x-ray and we will discharge her on 40 mg of Lasix p.o. x3 days at the time of discharge at which time she is to be reevaluated after. She not appear to have any active bleeding and her iron studies seem to be more consistent with anemia of chronic disease with a low normal TIBC. Repeat echocardiogram was obtained and seem to be stable when compared to previous echo from August 2018. She was evaluated by physical and Occupational Therapy and they did recommend ongoing therapy services. She was accepted for placement at the transitional care unit and was able to be discharged there in stable condition on 09/10/2022. Discharge diagnoses: Chronic anemia that appears consistent with chronic disease Klebsiella urinary tract infection Hypoxia Chronic diastolic heart failure DM-2 CKD stage IIIb Hypertension Morbid obesity Generalized weakness Debility Suspected EZEKIEL Physical Exam Const alert, oriented x3 and no apparent distress Constitutional Narrative: Elderly white female, sleeping but awakens easily, appears comfortable nontoxic, currently on 2 L nasal cannula, appears comfortable General Appearance: cooperative, comfortable, well kempt and well developed Orientation / Consciousness: awake, oriented to person, oriented to place and oriented to time Exam Limitations: no limitations Nutritional Appearance: morbidly obese HEENT normocephalic and head/scalp atraumatic HEENT Narrative: Mild hearing loss, dentition is fair, Mallampati is 3, no thrush Eyes PERRL and EOMs intact bilaterally Eyes Narrative: Mildly pale conjunctiva bilaterally, no scleral icterus Neck no lymphadenopathy and supple Neck Narrative: Trachea midline, no thyroid enlargement Resp no retractions and no use of accessory muscles Resp Narrative: Diminished with few crackles at bases Auscultation: crackles; Negative for rhonchi or wheezes Cardio regular rate, regular rhythm, S1 normal heart sound, S2 normal heart sound, no m urmurs, no rub, no gallops and no clicks GI normal to inspection, nondistended, normoactive bowel sounds, soft to palpation and non-tender Extremity no clubbing, cyanosis or edema Extremity Narrative: 2+ pedal pulses Skin no rashes or lesions noted, no wounds, skin turgor normal and no jaundice Neuro oriented x3, CN's II-XII intact bilaterally, moves all extremities and no focal motor deficits Neuro Narrative: Significant generalized weakness Speech: speech normal Psych Psych Narrative: Affect is flat and mood seems depressed Mood & Affect: depressed Weight / BMI Weight Weight: 119 kg Body Mass Index (BMI) 45.4 ABG / Lab / Microbiology Data Result Diagrams: 09/10/22 06:05 09/10/22 06:05 Laboratory: Laboratory Results - last 24 hr 09/09/22 19:14: POC Glucose 208 H 09/09/22 22:46: POC Glucose 245 H 09/10/22 06:05: Hemoglobin A1c 8.7 H 09/10/22 06:05: WBC 11.1 H, RBC 3.51 L, Hgb 8.6 L, Hct 30.4 L, MCV 86.6, MCH 24.5 L, MCHC 28.3 L, RDW Std Deviation 56.3 H, RDW Coeff of Naren 18.1 H, Plt Count 339, MPV 11.3, Immature Gran % (Auto) 0.600, Neut % (Auto) 59.7, Lymph % (Auto) 21.8, [place] % (Auto) 10.6 H, Eos % (Auto) 6.8 H, Baso % (Auto) 0.5, Absolute Neuts (auto) 6.6, Absolute Lymphs (auto) 2.42, Nucleated RBC % 0.2, Anisocytosis 1+ 09/10/22 06:05: Sodium 142, Potassium 4.4, Chloride 108 H, Carbon Dioxide 30.0, Anion Gap 4 L, BUN 14, Creatinine 0.90, Estim Creat Clear Calc 41.62, Est GFR (MDRD) Af Amer 77, Est GFR (MDRD) Non-Af 63, BUN/Creatinine Ratio 15.5, Glucose 110 H, Calcium 8.6, Phosphorus 4.7, Magnesium 2.1 09/10/22 06:40: POC Glucose 116 H 09/10/22 11:27: POC Glucose 152 H Radiography Diagnostic Testing: Radiology Impression Echocardiogram 09/10/22 11:13 Interpretation Summary The estimated ejection fraction is 55-60 %. Calcified papillary muscle Ordering Physician: Farideh Butler Referring Physician: Jim Triplett Chi Performed By: Deandra Allred RDCS D/C Instructions Discharge Diet: Low fat / Low cholesterol and 1800 Calorie Control Diet Discharge Activity: Return to Normal Activity Meaningful Use Info Meaningful Use Diagnoses (Choose all that apply): None applicable Discharge Plan Admission Admit Date/Time: 09/09/22 16:29 Primary Reason for Your Visit: Debility/generalized weakness Attending Provider: Farideh Butler Primary Care Provider: Jim Triplett Chi Consulting Providers: Gallo Mccabe Discharge Orders/Prescriptions Prescriptions: New furosemide [Lasix] 40 mg tablet 40 mg PO DAILY Qty: 3 0RF Rx Instructions: X3 days only Continued glimepiride 4 MG tablet 8 mg PO DAILY pioglitazone 15 mg tablet 15 mg PO DAILY fluconazole 150 mg tablet 150 mg PO Q3D polysaccharide iron complex [Ferrex 150] 150 mg iron capsule 150 mg PO DAILY ciprofloxacin HCl 250 mg tablet 250 mg PO BID ascorbic acid (vitamin C) [Vitamin C] 500 mg Tablet 500 mg PO DAILY nystatin [Nyamyc] 100,000 unit/gram powder 1 applic TOPICAL BID terbinafine HCl 1 % Cream 1 applic TOPICAL BID polyethylene glycol 3350 17 gram/dose powder 17 g PO DAILY Centrum Silver Women 8 mg iron-400 mcg-300 mcg Tablet 1 tab PO DAILY Lactobacillus acidophilus 1 cap PO/SL DAILY atorvastatin 40 MG tablet 40 mg PO QHS clopidogrel 75 MG tablet 75 mg PO DAILY Referrals / Follow Up: Jim Triplett Chi, MD [Primary Care Provider] - Within 1 Week Disposition Disposition (needs filled in before D/C Order can be placed): [facility] Charges/Coding Visit Charges OBSV E&M: 75076 Observation care discharge
--- NOTE | 2022-09-10 15:32 | CHAPLAIN ---
Type of Pastoral Visit _x__ Initial Visit ___ Follow-up Visit ___ On-call Visit ___ General Patient Visit ___ Spiritual Assessment ___ Family Conference ___ Bereavement ___ Rapid Response ___ Code Blue ___ Other (describe below) Pastoral Care Referral From _x__ Patient ___ Family ___ Nurse ___ Physician ___ Science Manager ___ Frickertron Checker ___ Other (describe below) Sacrament/Intervention _x__ Active listening ___ Anointing ___ Congregation ___ Bereavement ___ Communion ___ [place] exploration ___ _x__ Life review _x__ Prayer ___ Reconciliation ___ Sacrament of Sick _x__ Supportive presence ___ Wedding ___ Other (describe below) Pastoral Comments patient states she is very thankful to have someone who will pray and speak with her; pt gives some life review which includes tragedies and how she speaks to God every day; pt facing additional issues in her health and seeks support and prayers; daughter is a main caregiver
--- NOTE | 2022-09-10 16:00 | CASEMGMT ---
Social Work SW received referral that pt is interested in short term SNF placement. SW met with pt and introduced self and role of SW. Pt states she lives with her daughter Carissa in a one story home with no steps to enter. Pt has previously been independent with self care. She does walk with a walker and has a shower chair. Pt states she was driving some prior to a few weeks ago. Dgt does work during the day and pt is alone. Pt states she has had a decline in functionality over the last two weeks. A list of SNF providers including quality and resource use data and consistent with the patient?s preferred geographic region, medical needs, and insurance network were provided from the [employer] Guide. Pt choice is [facility]. With pt permission, phone call to pt dgt Carissa and discussed d/c plan. Carissa agreeable to discharge plan to TCU. Referral made to Kandice in TCU and they are able to accept pt. MAYDA started precert with pt insurance and return call received with precert obtained. Auth # [id number]. Physician updated and pt ready for discharge today. Pt, pt dgt, TCU and pt bedside nurse updated on discharge plan. Disposition: TCU, skilled level of care DONA Brandt
[2022-09-10 16:55] LABS: Bedside Glucose 106 mg/dL (74-106)
--- NOTE | 2022-09-10 17:27 | NURSING ---
Tried to call TCU to give report. RN in room now and will call this RN mack once she is free.
--- NOTE | 2022-09-10 18:18 | NURSING ---
Report called to Leigh at TCU and pt is getting transferred to room 19.
== END 2022-09-10 18:36 | disposition skilled nursing facility (03) ==
LOC: ED 15:34 → MS3 16:06
PROVIDERS: Admitting Provider Internal Medicine; Emergency Provider Emergency Medicine; PCP Family Medicine Geriatric Medicine; Visit Provider Internal Medicine
DX: E87.71 Transfusion associated circulatory overload (principal); I13.0 Hypertensive heart and chronic kidney disease with heart failure and stage 1 through stage 4 chronic kidney disease, or unspecified chronic kidney disease; I50.32 Chronic diastolic (congestive) heart failure; E11.22 Type 2 diabetes mellitus with diabetic chronic kidney disease; E11.65 Type 2 diabetes mellitus with hyperglycemia; Z68.42 Body mass index [BMI] 45.0-49.9, adult; E66.01 Morbid (severe) obesity due to excess calories; N18.32 Chronic kidney disease, stage 3b; N39.0 Urinary tract infection, site not specified; R62.7 Adult failure to thrive; D50.9 Iron deficiency anemia, unspecified; Z66 Do not resuscitate; Z79.02 Long term (current) use of antithrombotics/antiplatelets; Z79.84 Long term (current) use of oral hypoglycemic drugs; B96.1 Klebsiella pneumoniae [K. pneumoniae] as the cause of diseases classified elsewhere; Z79.899 Other long term (current) drug therapy; Z86.73 Personal history of transient ischemic attack (TIA), and cerebral infarction without residual deficits; J81.1 Chronic pulmonary edema; E55.9 Vitamin D deficiency, unspecified; R53.83 Other fatigue; Z13.89 Encounter for screening for other disorder
CPT/HCPCS: 36415; 36430; 71045; 71046; 74018; 80048; 80053; 82306; 82607; 82728; 82747; 82962; 83036; 83540; 83550; 83735; 84100; 84443; 85014; 85025; 85045; 86803; 86850; 86900; 86901; 86920; 86922; 87077; 87086; 87088; 87186; 87426; 93005; 93306; 96365; 96366; 96372; 96375; 96376; 97162; 97166; 99218; 99251; 99283; J7040; J7050; P9016; A4216; G0378; G0463; J1940

== ENCOUNTER → 2022-09-09 | Outpatient (CLI) | payer MEDICARE, SELFPAY ==
[2022-09-09] VITALS (8 sets, daily range): BP systolic 120–162; BP diastolic 54–99; PULSE 74–82; RESP 14–18; TEMP 36.1–36.5; O2SAT 88–93; BMI 43.7
[2022-09-09] MEDS: 0.9% NaCl Peripheral Flush Adult/Peds IV (09:14)
[2022-09-09] MEDS: Furosemide 20 MG/2 ML VIAL IV (11:28)
== END | disposition home or self-care (01) ==
LOC: MEDOUTP 08:24
PROVIDERS: PCP Family Medicine Geriatric Medicine; Referring Provider Family Medicine Geriatric Medicine; Visit Provider Family Medicine Geriatric Medicine
DX: Z00.00 Encounter for general adult medical examination without abnormal findings (principal)
CPT/HCPCS: 36430; 86850; 86900; 86901; 86920; 86922; J7040; P9016; A4216; J1940

== ENCOUNTER 2022-09-10 18:44 | Inpatient (IN) | payer MEDICARE, SELFPAY ==
[2022-09-10 20:00] VITALS: BMI 45.1
[2022-09-10 20:04] VITALS: PULSE 85; RESP 18; O2SAT 93
[2022-09-10 20:11] VITALS: BP 137/71; PULSE 85; RESP 18; TEMP 36.7; O2SAT 93
[2022-09-10] MEDS: FLUCONAZOLE 150 MG TABLET PO (20:38)
[2022-09-10] MEDS: Atorvastatin Calcium 40 MG Tablet PO (20:41)
[2022-09-10] MEDS: Menthol/Lanolin/Calamine/Znox 113 GM Tube 1 APPLIC TOPICAL (20:42)
[2022-09-11] MEDS: Ciprofloxacin 250 MG Tablet PO ×2 (05:04→17:41)
[2022-09-11] MEDS: Pioglitazone Hydrochloride 15 MG Tablet PO (05:04)
[2022-09-11] MEDS: Clopidogrel Bisulfate 75 MG Tablet PO (05:05)
[2022-09-11] MEDS: Furosemide 40 MG Tablet PO (05:05)
[2022-09-11] MEDS: Ascorbic Acid 500 MG Tablet PO (05:05)
[2022-09-11] MEDS: Iron Polysaccharide Complex 150 MG CAPSULE PO (05:05)
[2022-09-11] MEDS: 0.9% Saline Lock 10 ML Syringe IV (05:09)
[2022-09-11] MEDS: Menthol/Lanolin/Calamine/Znox 113 GM Tube 1 APPLIC TOPICAL ×2 (05:10→20:40)
[2022-09-11] MEDS: Nystatin Powder 15gm Bottle 1 APPLIC TOPICAL ×2 (05:10→17:42)
[2022-09-11 06:46] LABS: Bedside Glucose 149 mg/dL (74-106)
[2022-09-11 07:41] LABS: Absolute Lymphocyte Count 2.17 X10^3/uL (0.83-4.51); Absolute Neutrophil Count 7.8 X10^3/uL (2.0-7.7); Basophil# 0.04 X10^3/uL; Basophil% 0.3 % (0-1); Eosinophil# 0.47 X10^3/uL; Hematocrit 30.5 % (37-47); Hemoglobin 8.6 g/dL (12.0-15.0); Lymphocyte # 2.17 X10^3/ul (0.83-4.51); Lymphocyte % 18.6 % (19-41); Mean Corp Hgb Conc 28.2 g/dL (32-36); Mean Corpuscular Hgb 24.5 pg (27.0-32.0); Mean Corpuscular Volume 86.9 fL (81-99); Mean Platelet Vol. 10.7 fl (6.2-12.0); Monocyte% 10.3 % (0-10); NRBC Flagged by Analyzer 0 % (0-5); Neutrophil # 7.76 X10^3/uL (2.7-7.7); Neutrophil % 66.4 % (47-70); Platelet Count 345 K/mm3 (150-450); RBC Distribution Width CV 18.6 % (11.6-14.6); RBC Distribution Width SD 57.1 fl (35.1-43.9); Red Blood Count 3.51 M/mm3 (4.2-5.4); White Blood Count 11.7 K/mm3 (4.4-11.0)
--- NOTE | 2022-09-11 07:42 | PCM.HP.STD ---
HPI - General General Date of Admission: 09/10/22 Date of Service: 09/10/22 Chief Complaint: Here for rehab. HPI Narrative YECENIA LAZAR, is a 82 Female who presents with followin09/07/2022 Dr. Triplett new patient appointment. Presents with decline, pica, incontinent of urine, incontinent of stool. 09/08/2022 Iron deficiency anemia, Hemoglobin 8.0. Urine culture > 100,000 gram negative brendon, patient was treated with Ceftriaxone im, Cipro po. Tinea cruris treaetd with oral fluconazole, terbinafine cream, nystatin powder. Fecal impaction treated with miralax, fleet enema, she did not have time to take miralax, fleet enema. 09/09/2022 Transfused 2 units PRBC as outpatient. 09/09/2022 Patient referred to [facility] Emergency Department for weakness. Daughter Carissa unable to care for patient at home. 09/09/2022 Admit to Hospital. Hemoglobin 9.1 after 2 units PRBC transfusion. Lasix 40mg iv for fluid overload. Ceftriaxone 1gm iv for urinary tract infection for UTI, urine culture > 100,000 gram negative brendon. 09/10/2022 Echo EF 55-60%. Calcified papillary muscle. Urine culture growing > 100,000 pansensitive Klebsiella Oxytoca. 09/11/2022 Admit to TCU with debility, here for rehabilitation, strengthening, prior to discharge home with daughter. [facility] Medical History (Updated 09/11/22 @ 08:[address] Jim Triplett MD) Diabetes TIA (transient ischemic attack) Home Medications glimepiride 4 mg tablet 8 mg PO DAILY diabetes 01/30/18 [History Last Taken 09/08/22] Lactobacillus acidophilus 1 cap PO/SL DAILY GUT HEALTH 09/09/22 [History Last Taken 09/08/22] ascorbic acid (vitamin C) 500 mg tablet (Vitamin C) 500 mg PO DAILY SUPPLEMENT 09/09/22 [History Last Taken 09/08/22] atorvastatin 40 mg tablet 40 mg PO QHS CHOLESTEROL 09/09/22 [History Last Taken 09/08/22] ciprofloxacin HCl 250 mg tablet 250 mg PO BID antibiotic 09/09/22 [History Last Taken 09/01/22] clopidogrel 75 mg tablet 75 mg PO DAILY BLOOD THINNER 09/09/22 [History Last Taken 09/08/22] fluconazole 150 mg tablet 150 mg PO Q3D iron 09/09/22 [History Last Taken 09/07/22] multivit with ayboufre-smsf-PI-lutein 8 mg iron-400 mcg-300 mcg tablet (Centrum Silver Women) 1 tab PO DAILY SUPPLEMENT 09/09/22 [History Last Taken 09/08/22] nystatin 100,000 unit/gram topical powder (Nyamyc) 1 applic topical BID skin folds, groin, under breasts 09/09/22 [History Last Taken Unknown] pioglitazone 15 mg tablet 15 mg PO DAILY diabetes 09/09/22 [History Last Taken 09/08/22] polyethylene glycol 3350 17 gram/dose oral powder 17 g PO DAILY STOOL 09/09/22 [History Last Taken 09/08/22] polysaccharide iron complex 150 mg iron capsule (Ferrex) 150 mg PO DAILY iron 09/09/22 [History Last Taken 09/08/22] terbinafine HCl 1 % topical cream 1 applic topical BID Check with primary doctor 09/09/22 [History Last Taken Unknown] furosemide 40 mg tablet (Lasix) 40 mg PO DAILY water pill 09/10/22 [History Last Taken Unknown] Allergy/AdvReac Type Severity Reaction Status Date / Time No Known Allergies Allergy Verified 09/09/22 13:56 Family History (Updated 09/11/22 @ 08:[address] Jim Triplett MD) Mother , at 91. Dementia Father , at 76. Cancer Alcohol abuse Sister Parkinson disease Surgical History (Updated 09/11/22 @ 08:[address] Jim Triplett MD) History of hernia repair History of total left hip replacement Social History (Updated 09/11/22 @ 08:[address] Jim Triplett MD) household members: children and other details: Daughter Carissa. Smoking Status: Never smoker alcohol intake: never substance use type: does not use ROS Constitutional Constitutional: Denies chills, fever(s) or weight gain ENT HEENT: Denies headache(s), nasal congestion or nasal discharge Cardiovascular Cardiovascular: Denies chest pain or palpitations Respiratory/Chest Respiratory/Chest: Denies cough, excessive phlegm production or shortness of breath with exertion Gastrointestinal Gastrointestinal: Denies abdominal pain, nausea or vomiting Genitourinary Genitourinary: Denies dysuria Musculoskeletal Musculoskeletal: Denies joint pain or joint swelling Integumentary Integumentary: Denies rash or wounds Neurologic Neurologic: Denies focal weakness, numbness or tingling Psychiatric Psychiatric: Denies anxiety, auditory hallucinations, depression, homicidal ideation or suicidal ideation Vital Signs Vital Signs Vital Signs: 09/10/22 20:11 09/10/22 20:04 Temperature 98.0 F Temperature Source Temporal Pulse Rate 85 85 Pulse Rhythm Regular Pulse Strength Normal (2+) Respiratory Rate 18 18 Respiratory Effort Normal Non-Labored Respiratory Depth Normal Respiratory Pattern Normal Blood Pressure 137/71 H Blood Pressure Mean 93 Blood Pressure Source Monitor Pulse Ox 93 93 Oxygen Delivery Method Nasal Cannula Nasal Cannula Oxygen Flow Rate (L/min) 2 2 Weight Weight: 119.096 kg Body Mass Index (BMI) 45.1 Physical Exam Const alert General Appearance: cooperative HEENT normocephalic Eyes PERRL and EOMs intact bilaterally Neck supple, no JVD and no carotid bruits Resp normal respiratory effort, normal air movement and clear to auscultation bilaterally Auscultation: crackles bilateral Cardio regular rate and regular rhythm GI normal to inspection, nondistended, normoactive bowel sounds, non-tender and non-distended Extremity normal capillary refill General Extremity: Negative for edema Skin no rashes or lesions noted General Skin Exam: no breakdown Psych affect normal Appearance: appropriate Results Lab / Micro Data Result Diagrams: 09/11/22 07:32 09/11/22 07:32 Labs: Laboratory Results - last 24 hr 09/11/22 06:24: POC Glucose 149 H 09/11/22 07:32: WBC 11.7 H, RBC 3.51 L, Hgb 8.6 L, Hct 30.5 L, MCV 86.9, MCH 24.5 L, MCHC 28.2 L, RDW Std Deviation 57.1 H, RDW Coeff of Naren 18.6 H, Plt Count 345, MPV 10.7, Immature Gran % (Auto) 0.400, Neut % (Auto) 66.4, Lymph % (Auto) 18.6 L, Mckean % (Auto) 10.3 H, Eos % (Auto) 4.0, Baso % (Auto) 0.3, Absolute Neuts (auto) 7.8 H, Absolute Lymphs (auto) 2.17, Nucleated RBC % 0 Assessment & Plan Assessment/Plan (1) Type II diabetes mellitus: QUALIFIERS: Diabetes mellitus complication status: with unspecified complications Diabetes mellitus intermediate school teacher insulin use: without intermediate school teacher use Qualified Code(s): E11.8 - Type 2 diabetes mellitus with unspecified complications (2) Body mass index 45.0-49.9, adult: (3) Hyperlipidemia: (4) Stroke: (5) Tinea cruris: (6) Urinary tract infection: (7) Iron deficiency anemia: (8) Incontinence of feces: (9) Incontinence of urine: (10) Pica: (11) Failure to thrive: (12) Debility: (13) Stroke: QUALIFIERS: CVA mechanism: thrombosis Laterality of affected vessel: left Precerebral and cerebral artery: middle cerebral artery Qualified Code(s): I63.312 - Cerebral infarction due to thrombosis of left middle cerebral artery PLAN: Plan 82 year old female with below past medical history hospitalized for weakness secondary to acute anemia secondary to gastrointestinal bleeding, Klebsiella Oxytoca urinary tract infection, complicated by tinea cruris, constipation, admitted to TCU with debility, here for rehabilitation, strengthening, prior to discharge home with daughter. Debility - PT/OT. Pain - Tylenol 1000mg po q6h prn pain (1-100). Bowel - Miralax 17gm daily, senna/colace 2 tablets bid, ,MOM 30ml po x 1 prn, Soap suds enema. Adult immunization - Administer pneumonia vaccine, covid19 vaccine, flu vaccine as appropriate. DVT prophylaxis - Hold, active gastrointestinal bleed. Iron deficiency anemia - Ferrex 150mg daily, Vitamin C 500mg daily, Consult Dr. Robert for EGD/colonoscopy, etiology of bleeding unknown, but patient had pica for 6 months, and her hemoglobin dropped from 13 to 8 over 4 years. Hyperlipidemia - Atorvastatin 40mg qhs. K. Oxytoca urinary tract infection - Cipro 250mg bid thru 09/14/2022, Lactobacillus 1 tablet daily thru 09/14/2022. Stroke - Plavix 75mg daily. Tinea cruris - Fluconazole 150mg every 3 days thru 09/20/2022, Nystatin powder bid, ketoconazole cream topical bid x 10 days. Fluid overload - Furosemide 40mg daily thru 09/14/2022. Diabetes Mellitus II - Glimepiride 8mg daily, Pioglitazone 15mg daily. Skin irritation - Calmoseptine topical bid.
[2022-09-11 08:01] LABS: Anion Gap 2 (5-15); BUN 18 mg/dL (7-18); BUN/Creat Ratio 19.4 RATIO (10-20); Calcium,Total 8.1 mg/dL (8.5-10.1); Chloride 106 mmol/L (98-107); Creatinine, Serum 0.93 mg/dL (0.55-1.02); EST Glomerular Filtration Rate 61 mL/min (>60); Est Glom Filt Rate - Afr Amer 74 mL/min (>60); Estimated Creatinine Clearance 40.27 ml/min; Glucose 163 mg/dL (74-106); Potassium 3.8 mmol/L (3.5-5.1); Sodium Level 141 mmol/L (136-145)
[2022-09-11 08:08] VITALS: O2SAT 93
[2022-09-11] MEDS: Multivitamins,Ther W-Minerals Tablet 1 TABLET PO (08:25)
[2022-09-11] MEDS: Glimepiride 4 MG Tablet 8 MG PO (08:25)
[2022-09-11 11:25] LABS: Bedside Glucose 203 mg/dL (74-106)
[2022-09-11] MEDS: Acetaminophen 500 MG Tablet 1000 MG PO (11:48)
[2022-09-11] MEDS: Tuberculin,Purif.prot.deriv. 50 TU/ML Vial 0.1 ML ID (11:49)
[2022-09-11] MEDS: Ketoconazole Cream 1 APPLIC TOPICAL ×2 (11:51→20:41)
[2022-09-11] MEDS: Electrolyte Solution/Peg's 4000 ML 1000 ML PO (13:44)
[2022-09-11 15:06] VITALS: BP 136/81; PULSE 72; RESP 18; TEMP 36.4; O2SAT 96
[2022-09-11 16:40] LABS: Bedside Glucose 203 mg/dL (74-106)
[2022-09-11] MEDS: Senna/Docusate Sodium 1 Tablet 2 TABLET PO (17:41)
[2022-09-11] MEDS: Atorvastatin Calcium 40 MG Tablet PO (20:41)
[2022-09-11 21:35] LABS: Bedside Glucose 211 mg/dL (74-106)
--- NOTE | 2022-09-11 22:30 | RAD_ITS ---
INDICATION: diarrhea EXAMINATION/TECHNIQUE: X-RAY - AP XR Abdomen 1 View COMPARISON: Abdominal x-ray 09/08/2022 FINDINGS: BOWEL GAS PATTERN: No abnormally distended, air-filled bowel loops or air fluid levels. FREE AIR: None exemplified. ORGANOMEGALY: Not seen. CALCIFICATIONS: No abnormal calcifications observed. LOWER CHEST: No acute pathology. BONES AND SOFT TISSUES: No acute pathology. 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 Consider dedicated pelvis and hip imaging. Degenerative changes lower lumbar spine. RAD/Abdomen Single View IMPRESSION: No evidence of acute intra-abdominal pathology. Findings suggesting acetabular protrusio. Consider dedicated pelvis and hip x-rays. Electronically Signed: Luis Wilson DO at 22:47 EDT ,
[2022-09-12] MEDS: Furosemide 40 MG Tablet PO (05:31)
[2022-09-12] MEDS: Iron Polysaccharide Complex 150 MG CAPSULE PO (05:31)
[2022-09-12] MEDS: Ciprofloxacin 250 MG Tablet PO (05:31)
[2022-09-12] MEDS: Clopidogrel Bisulfate 75 MG Tablet PO (05:31)
[2022-09-12] MEDS: Pioglitazone Hydrochloride 15 MG Tablet PO (05:31)
[2022-09-12] MEDS: Menthol/Lanolin/Calamine/Znox 113 GM Tube 1 APPLIC TOPICAL (05:32)
[2022-09-12] MEDS: Ascorbic Acid 500 MG Tablet PO (05:32)
[2022-09-12] MEDS: Nystatin Powder 15gm Bottle 1 APPLIC TOPICAL (05:33)
[2022-09-12 06:30] LABS: Bedside Glucose 144 mg/dL (74-106)
[2022-09-12] MEDS: Glimepiride 4 MG Tablet 8 MG PO (08:05)
[2022-09-12] MEDS: Ketoconazole Cream 1 APPLIC TOPICAL ×2 (09:05→20:54)
[2022-09-12 09:41] VITALS: PULSE 84; O2SAT 97
[2022-09-12 11:50] LABS: Bedside Glucose 219 mg/dL (74-106)
--- NOTE | 2022-09-12 12:49 | NURSING ---
KUB X-ray showed possible Acetabular Protrusio X-ray of hip needed to verify. Pt denies pain to bilateral hips at this time. Pt c/o of New Left Knee pain. Dr. Triplett updated and N.O. for X-ray of bilateral hips and Left Knee. Pt and family updated.
--- NOTE | 2022-09-12 13:09 | RAD_ITS ---
STUDY: X-RAY - LEFT KNEE REASON FOR EXAM: Female, 82 years old. Pain TECHNIQUE: 3 view(s) of the knee. COMPARISON: None. FINDINGS: Normal visualized distal femur. Normal visualized proximal tibia and fibula. Normal proximal tibiofibular articulation. There is severe degenerative arthrosis of the medial femorotibial compartment with severe joint space narrowing. There is moderate degenerative arthrosis of the lateral femorotibial compartment with moderate joint space narrowing. There is moderate degenerative arthrosis of the patellofemoral articulation. There is a soft tissue prominence in the suprapatellar region suggesting a small volume joint effusion. The soft tissue structures are unremarkable. RAD/Knee 3 Views IMPRESSION: Degenerative arthrosis. Electronically Signed: Dashawn Mcgee MD at 13:27 EDT ,
--- NOTE | 2022-09-12 13:09 | RAD_ITS ---
STUDY: X-RAY - PELVIS AND BILATERAL HIPS REASON FOR EXAM: Female, 82 years old. Pain TECHNIQUE: AP view of the pelvis.? 2 views of the right hip, and 2 views of the left hip were obtained. COMPARISON: None. FINDINGS: There is a non-specific bowel gas pattern. Normal visualized soft tissue structures. Normal bilateral iliac wings, sacroiliac joints and visualized sacrum. Normal bilateral superior and inferior pubic rami. Normal pubic symphysis. Normal bilateral ischial tuberosities. Status post bilateral hip arthroplasty. The prosthesis appears located bilaterally. No ostial lysis to suggest loosening.. RAD/Hips B/L min 2 views w/ Pelvis IMPRESSION: Normal x-ray examination of the pelvis after bilateral hip arthroplasty. Electronically Signed: Dashawn Mcgee MD at 13:29 EDT ,
[2022-09-12 15:47] VITALS: BP 142/65; PULSE 78; RESP 18; TEMP 36.4; O2SAT 97
--- NOTE | 2022-09-12 16:04 | RAD_ITS ---
STUDY: X-RAY CHEST REASON FOR EXAM: Female, 82 years old. Nausea and Vomiting TECHNIQUE: PA and lateral views of the chest. COMPARISON: 09/09/2022 FINDINGS: Poor inspiration with some bibasilar atelectasis. There is no demonstrated pleural abnormality. Normal size heart. Normal mediastinum and ishmael. Normal visualized pulmonary arteries. Normal visualized aortic arch and descending thoracic aorta. Normal visualized thoracic spine. Normal visualized ribs, clavicles, and shoulders. There is no demonstrated abnormality of the visualized soft tissue structures of the upper abdomen. RAD/Chest PA and Lateral IMPRESSION: Poor inspiration with some bibasilar atelectasis per Electronically Signed: Dashawn Mcgee MD at 17:20 EDT ,
[2022-09-12] MEDS: proMETHazine 25 MG Tablet PO (16:21)
[2022-09-12 17:45] LABS: Bedside Glucose 154 mg/dL (74-106)
[2022-09-12] MEDS: Atorvastatin Calcium 40 MG Tablet PO (20:50)
[2022-09-12] MEDS: Cephalexin 500 MG Capsule PO (20:51)
[2022-09-12 21:45] LABS: Bedside Glucose 179 mg/dL (74-106)
[2022-09-13] MEDS: Iron Polysaccharide Complex 150 MG CAPSULE PO (04:47)
[2022-09-13] MEDS: Nystatin Powder 15gm Bottle 1 APPLIC TOPICAL ×2 (04:47→19:02)
[2022-09-13] MEDS: Furosemide 40 MG Tablet PO (04:47)
[2022-09-13] MEDS: Ascorbic Acid 500 MG Tablet PO (04:47)
[2022-09-13] MEDS: Clopidogrel Bisulfate 75 MG Tablet PO (04:47)
[2022-09-13] MEDS: Pioglitazone Hydrochloride 15 MG Tablet PO (04:47)
[2022-09-13] MEDS: Menthol/Lanolin/Calamine/Znox 113 GM Tube 1 APPLIC TOPICAL ×2 (04:48→21:06)
[2022-09-13] MEDS: Polyethylene Glycol 3350 17 GM PACKET PO (04:49)
[2022-09-13] MEDS: Cephalexin 500 MG Capsule PO ×2 (04:50→19:02)
[2022-09-13 06:36] LABS: Bedside Glucose 106 mg/dL (74-106)
[2022-09-13] MEDS: Glimepiride 4 MG Tablet 8 MG PO (08:02)
--- NOTE | 2022-09-13 09:59 | CASEMGMT ---
Social Work Met with patient to complete initial assessment. Introduced self and role. Verified/updated contacts. Discussed patient's code status and MOLST form. Pt wishes to be DNR-CC. DNR and MOLST form signed, placed in Dr. folder. Nursing notified. Pt agreed to have dtr bring in copies of advanced directives. Educated to [employer] insurance with NRD 09/13 and continued stay is not guaranteed. Pt's goal is to return home living with dtr at [facility]. SW to continue to follow for DC planning. Violeta Gentile, THERMODYNAMIC PHYSICIST ROD WELDER
[2022-09-13] MEDS: Ketoconazole Cream 1 APPLIC TOPICAL ×2 (10:09→21:06)
[2022-09-13 11:09] VITALS: O2SAT 97
[2022-09-13 11:25] LABS: Bedside Glucose 106 mg/dL (74-106)
--- NOTE | 2022-09-13 11:53 | NURSING ---
Community Service Director Note; Activity Asst: Complete
--- NOTE | 2022-09-13 12:15 | CASEMGMT ---
Social Work Received call from dtr expressing concern about pt being able to DC home. Dtr requesting information about Medicaid. SW explained income and resource guidelines - offered to provide application at [facility] along with SNF list. Dtr appreciative and will be contacting pt's life insurance company to transfer to home. SW to continue to follow. Violeta Gentile, CLINICAL QUALITY MANAGER MANAGER CAR
[2022-09-13] MEDS: proMETHazine 25 MG Tablet PO ×2 (12:18→16:51)
[2022-09-13 13:52] VITALS: BP 145/50; PULSE 78; RESP 18; TEMP 36.2; O2SAT 96
--- NOTE | 2022-09-13 13:54 | NURSING ---
Called and spoke with staff at Dr. Robert's office, notified of GI consult.
[2022-09-13 13:57] VITALS: O2SAT 97
--- NOTE | 2022-09-13 18:55 | NURSING ---
Patient vomited around lunch time and again around dinner time. Phenergan given with no improvement. Large loose BMs this evening, patient complaining of abdominal pain throughout day. Updated Dr Triplett, he came to room and saw patient this evening, verbal order for C-diff, enteric stool panel, and fluconazole DC'd as that could be causing her nausea.
[2022-09-13] MEDS: Atorvastatin Calcium 40 MG Tablet PO (21:05)
[2022-09-13 22:00] VITALS: PULSE 82; RESP 16; O2SAT 97
[2022-09-14] MEDS: Clopidogrel Bisulfate 75 MG Tablet PO (05:21)
[2022-09-14] MEDS: Nystatin Powder 15gm Bottle 1 APPLIC TOPICAL ×2 (05:21→17:25)
[2022-09-14] MEDS: Furosemide 40 MG Tablet PO (05:21)
[2022-09-14] MEDS: Polyethylene Glycol 3350 17 GM PACKET PO (05:21)
[2022-09-14] MEDS: Cephalexin 500 MG Capsule PO ×2 (05:21→18:51)
[2022-09-14] MEDS: Menthol/Lanolin/Calamine/Znox 113 GM Tube 1 APPLIC TOPICAL ×2 (05:22→21:21)
[2022-09-14] MEDS: Iron Polysaccharide Complex 150 MG CAPSULE PO (05:22)
[2022-09-14] MEDS: Ascorbic Acid 500 MG Tablet PO (05:22)
[2022-09-14 07:00] LABS: Bedside Glucose 73 mg/dL (74-106)
[2022-09-14 07:34] VITALS: O2SAT 92
--- NOTE | 2022-09-14 07:56 | NURSING ---
GLUCOMETER UNABLE TO SCAN PT. WRISTBAND, GLUCOSE READING 74 AT THIS TIME, PATIENT EATING BREAKFAST AT THIS TIME. A&OX3. ABLE TO VOICE NEEDS. CALL LIGHT IN REACH. NO S/SX HYPOGLYCEMIA. REPORTS GOOD APPETITE AND DESIRE TO CONSUME BREAKFAST
[2022-09-14] MEDS: Pioglitazone Hydrochloride 15 MG Tablet PO (08:07)
[2022-09-14] MEDS: Glimepiride 4 MG Tablet PO (08:07)
[2022-09-14 08:10] LABS: Bedside Glucose 74 mg/dL (74-106)
[2022-09-14] MEDS: Ketoconazole Cream 1 APPLIC TOPICAL ×2 (09:56→21:21)
[2022-09-14 10:00] VITALS: PULSE 83; RESP 18; O2SAT 97
[2022-09-14 10:25] VITALS: O2SAT 95
[2022-09-14 14:03] VITALS: BP 131/68; PULSE 79; RESP 18; TEMP 36.2; O2SAT 95
[2022-09-14] MEDS: Senna/Docusate Sodium 1 Tablet 2 TABLET PO (17:25)
--- NOTE | 2022-09-14 18:09 | CON.PCM_ITS ---
Assessment & Plan Assessment/Plan (1) Anemia: PLAN: The differential diagnosis for her anemia does include acute on chronic blood loss anemia secondary to peptic ulcer disease, angiodysplasia, Brenton's erosions, gastric antral vascular ectasia. She should undergo an EGD for evaluation of her upper GI tract. She was explained alternatives, risk, benefits including outstanding bleeding, infection, per patient, need for emergency to . She would have an ASA of 3. HPI Consult Data Date of Consult: 09/16/22 HPI Narrative Reason for Consultation: Anemia HPI Narrative: YCEENIA LAZAR, is a 82 F who presented directly after 2 units of PRBC transfusion to ED.? She recently changed PCP from Dr. Dean to Dr. Triplett on Tuesday.? Patient herself feels that she is gradually declining, decreased functional activity, sleeping more and lethargy.? Her hemoglobin was found 7.[address] Triplett ordered 2 units of PRBC.? Repeat today is 9.1 g.? She denies active GI bleeding including hematemesis melena or hematochezia.? She is started on iron sulfate and ascorbic acid.? She denies burning micturition or new symptoms in the urine but she is not incontinent.? She was told by PCP that she has UTI and urine culture is growing more than 100,000 colonies of lactose rn support services, GNR.? Patient has multiple comorbidities include coronary artery disease status post 2+ stents, diabetes mellitus type 2 and stroke in August 2018.? She recalls he had colonoscopy more than 5 years ago but did not recall any significant abnormality.? Never had EGD. She was last admitted in August 2018 for slurred speech and found to have acute left parietal stroke in MRI.? At that time 2D echo showed EF 55% with stage II diastolic dysfunction and bubble study was negative.? Lipid profile showed LDL 103.? MRA of head and neck were unremarkable. After her blood transfusion she did unfortunately develop some pulmonary edema which required diuresis.? Chest x-ray did show volume overload.? She was diuresed with IV Lasix 40 mg IV twice with improved aeration and appearance on chest x-ray and we will discharge her on 40 mg of Lasix p.o. x3 days at the time of discharge at which time she is to be reevaluated after.? She not appear to have any active bleeding and her iron studies seem to be more consistent with anemia of chronic disease with a low normal TIBC. ? Repeat echocardiogram was obtained and seem to be stable when compared to previous echo from August 2018.? She was evaluated by physical and Occupational Therapy and they did recommend ongoing therapy services.? She was accepted for placement at the transitional care unit and was able to be discharged there in stable condition on 09/10/2022. [facility] Medical History Anemia Diabetes Stroke TIA (transient ischemic attack) Type II diabetes mellitus Home Medications ascorbic acid (vitamin C) 500 mg tablet (Vitamin C) 500 mg PO DAILY SUPPLEMENT 09/09/22 [History Last Taken 09/15/22 05:41] atorvastatin 40 mg tablet 40 mg PO QHS CHOLESTEROL 09/09/22 [History Last Taken 09/14/22 21:20] clopidogrel 75 mg tablet 75 mg PO DAILY BLOOD THINNER 09/09/22 [History Last Taken 09/15/22 05:41] nystatin 100,000 unit/gram topical powder (Nyamyc) 1 applic topical BID skin folds, groin, under breasts 09/09/22 [History Last Taken 09/15/22 18:25] polyethylene glycol 3350 17 gram/dose oral powder 17 g PO DAILY STOOL 09/09/22 [History Last Taken 09/15/22 05:41] polysaccharide iron complex 150 mg iron capsule (Ferrex) 150 mg PO DAILY iron 09/09/22 [History Last Taken 09/15/22 05:41] acetaminophen 500 mg tablet 1,000 mg PO Q6H PRN Pain 09/15/22 [History Last Taken 09/15/22 11:07] glimepiride 2 mg tablet 2 mg PO DAILY DIABETES 09/15/22 [History Last Taken 09/13/22 08:00] menthol 0.44 %-zinc oxide 20.6 % topical ointment (Calmoseptine) 1 applic topical BID@0600,2200 09/15/22 [History Last Taken 09/15/22 05:43] nut.tx.gluc.intol,lac-free,soy (Glucerna Shake oral liquid) 120 ml PO TIDCM 09/15/22 [History Last Taken 09/15/22 12:34] ondansetron 8 mg disintegrating tablet 8 mg PO Q8H PRN Nausea 09/15/22 [History Last Taken 09/15/22 15:10] sennosides 8.6 mg-docusate sodium 50 mg tablet (Senna with Docusate Sodium) 2 tab-cap PO BID STOOL 09/15/22 [History Last Taken 09/15/22 05:41] Allergy/AdvReac Type Severity Reaction Status Date / Time No Known Allergies Allergy Verified 09/15/22 18:22 Family History Mother , at 91. Dementia Father , at 76. Cancer Alcohol abuse Sister Parkinson disease Surgical History History of hernia repair History of right hip replacement History of total left hip replacement Social History household members: children and other details: Daughter Carissa. Smoking Status: Never smoker alcohol intake: never substance use type: does not use ROS Constitutional Constitutional: Denies chills, fever(s) or weight gain ENT HEENT: Denies headache(s), nasal congestion or nasal discharge Cardiovascular Cardiovascular: Denies chest pain or palpitations Respiratory/Chest Respiratory/Chest: Denies cough, excessive phlegm production or shortness of breath with exertion Gastrointestinal Gastrointestinal: Denies abdominal pain, nausea or vomiting Genitourinary Genitourinary: Denies dysuria Musculoskeletal Musculoskeletal: Denies joint pain or joint swelling Integumentary Integumentary: Denies rash or wounds Neurologic Neurologic: Denies focal weakness, numbness or tingling Psychiatric Psychiatric: Denies anxiety, auditory hallucinations, depression, homicidal ideation or suicidal ideation Physical Exam Const alert General Appearance: cooperative HEENT normocephalic Eyes PERRL and EOMs intact bilaterally Neck supple, no JVD and no carotid bruits Resp normal respiratory effort, normal air movement and clear to auscultation bilaterally Auscultation: crackles bilateral Cardio regular rate and regular rhythm GI normal to inspection, nondistended, normoactive bowel sounds, non-tender and non-distended Extremity normal capillary refill General Extremity: Negative for edema Skin no rashes or lesions noted General Skin Exam: no breakdown Psych affect normal Appearance: appropriate Lab / Micro Data Result Diagrams: 09/11/22 07:32 09/11/22 07:32 Labs: Laboratory Results - last 24 hr 09/14/22 06:39: POC Glucose 73 L 09/14/22 07:51: POC Glucose 74 Charges/Coding Visit Charges Inpatient E&M: 34092 Init Hosp L2
[2022-09-14] MEDS: Atorvastatin Calcium 40 MG Tablet PO (21:20)
[2022-09-15] MEDS: Ascorbic Acid 500 MG Tablet PO (05:41)
[2022-09-15] MEDS: Senna/Docusate Sodium 1 Tablet 2 TABLET PO (05:41)
[2022-09-15] MEDS: Polyethylene Glycol 3350 17 GM PACKET PO (05:41)
[2022-09-15] MEDS: Clopidogrel Bisulfate 75 MG Tablet PO (05:41)
[2022-09-15] MEDS: Iron Polysaccharide Complex 150 MG CAPSULE PO (05:41)
[2022-09-15] MEDS: Nystatin Powder 15gm Bottle 1 APPLIC TOPICAL (05:42)
[2022-09-15] MEDS: Menthol/Lanolin/Calamine/Znox 113 GM Tube 1 APPLIC TOPICAL (05:43)
[2022-09-15 06:51] LABS: Bedside Glucose 145 mg/dL (74-106)
[2022-09-15 09:14] VITALS: O2SAT 96
[2022-09-15 09:17] VITALS: O2SAT 91
[2022-09-15 09:50] LABS: Bacteria 0 SEEN /hpf (None Seen); Mucous, Urine 0 SEEN /hpf (<or=2+); Red Blood Cells-Urine 0 SEEN /hpf (0-5); White Blood Cells 0 SEEN /hpf (0-5)
[2022-09-15 09:54] LABS: Color, Urine Yellow (Yellow); Glucose, Dipstick Normal (Normal); Ketone-Dipstick Negative (Negative); Leukocyte Esterase-Dipstick Negative /ul (Negative); Nitrite-Dipstick Negative (Negative); Occult Blood-Urine Negative /ul (Negative); Protein-Dipstick 15 mg/dl (Negative); Specific Gravity, Urine 1.015 (1.002-1.030); Urine Bilirubin Dipstick Negative (Negative); Urine Clarity Sl. Cloudy (Clear); Urine Urobilinogen Normal (Normal)
--- NOTE | 2022-09-15 10:22 | CASEMGMT ---
Social Work IDT met with patient and dtr for care plan meeting. Discussed patient's progress in PT/OT/SN. Educated to [employer] insurance with NRD 09/17 and continued stay is not guaranteed. Pt is having nausea, decreases appetite, pain limiting. Nursing aware. Dtr works full stack developer and pt needs to be independent to return home. Provided MIA application and SNF list with quality and resource data via [employer] Guide. Dtr contacted life insurance policy and will transfer to home. Dtr also reported pt has some confusion, trouble remembering events day to day that is not acute. ST order entered. SW to continue to follow for discharge planning assistance. Violeta Gentile, CANAL BOAT CAPTAIN RUNWAY MODEL
[2022-09-15 10:27] LABS: Squamous Epithelial Cells - UA 0-5 SEEN /hpf (5-10)
[2022-09-15] MEDS: Acetaminophen 500 MG Tablet 1000 MG PO (11:07)
[2022-09-15] MEDS: Ketoconazole Cream 1 APPLIC TOPICAL (11:11)
--- NOTE | 2022-09-15 11:54 | PCM.PN.DRR ---
TCU RX Drug Regimen Review Subjective: TCU Admission. 82 YOF presented to the ER with weakness. Hospitalized with weakness secondary to acute anemia secondary to gastrointestinal bleeding, Klebsiella Oxytoca urinary tract infection, complicated by tinea cruris, constipation. Admitted to TCU with debility for strengthening and rehabilitation. Objective: Allergies No Known Allergies Allergy (Verified 09/09/22 13:56) Current Medications Generic Name Dose Route Start Last Admin Trade Name Freq PRN Reason Stop Dose Admin Acetaminophen 1,000 mg 09/11/22 09:04 09/15/22 11:07 Acetaminophen 500 Mg Tablet PO 1,000 mg Q6H PRN PRN Administration Pain Score 1-10 Ascorbic Acid 500 mg 09/11/22 06:00 09/15/22 05:41 Ascorbic Acid 500 Mg Tablet PO 500 mg DAILY DOMI Administration Atorvastatin Calcium 40 mg 09/10/22 22:00 09/14/22 21:20 Atorvastatin Calcium 40 Mg Tablet PO 40 mg QHS DOMI Administration Calamine/Phenol 1 applic 09/10/22 22:00 09/15/22 05:43 Menthol/Lanolin/Calamine/Znox 113 Gm Tube TOPICAL 1 applic 0600,2200 [facility] Administration Protocol Clopidogrel Bisulfate 75 mg 09/11/22 06:00 09/15/22 05:41 Clopidogrel Bisulfate 75 Mg Tablet PO 75 mg DAILY DOMI Administration Glimepiride 2 mg 09/16/22 08:00 Glimepiride 2 Mg Tablet PO DAILYCM [facility] Ketoconazole 1 applic 09/11/22 22:00 09/15/22 11:11 Ketoconazole Cream TOPICAL 09/21/22 22:01 1 applic 1000,2200 [facility] Administration Protocol Magnesium Hydroxide 30 ml 09/11/22 09:04 Magnesium Hydroxide 30 Ml Udc PO X1 PRN Constipation Nystatin 1 applic 09/11/22 06:00 09/15/22 05:42 Nystatin Powder 15gm Bottle TOPICAL 1 applic BID DOMI Administration Protocol Polyethylene Glycol 17 gm 09/11/22 06:00 09/15/22 05:41 Polyethylene Glycol 3350 17 Gm Packet PO 17 gm DAILY DOMI Administration Polysaccharide Iron Complex 150 mg 09/11/22 06:00 09/15/22 05:41 Iron Polysaccharide Complex 150 Mg Capsule PO 150 mg DAILY DOMI Administration Promethazine HCl 25 mg 09/12/22 15:38 09/13/22 16:51 Promethazine 25 Mg Tablet PO 25 mg Q4H PRN PRN Administration NAUSEA/VOMITING Senna/Docusate Sodium 2 tablet 09/11/22 09:15 09/15/22 05:41 Senna/Docusate Sodium 1 Tablet PO 2 tablet BID DOMI Administration Sodium Chloride 10 - 40 ml 09/10/22 20:13 09/11/22 05:09 0.9% Saline Lock 10 Ml Syringe IV 10 ml UD PRN Administration SALINE FLUSH Sodium Chloride 10 - 40 ml 09/11/22 08:04 0.9% Saline Lock 10 Ml Syringe IV UD PRN SALINE FLUSH Tuberculin PPD 0.1 ml 09/18/22 10:00 Tuberculin,Purif.Prot.Deriv. 50 Tu/Ml Vial ID 09/18/22 10:01 X1 ONE Problem List (Last Reviewed 09/09/22 @ 16:[address] Gallo Mccabe MD) Body mass index 45.0-49.9, adult (Acute) Hyperlipidemia (Acute) Stroke (Acute) Tinea cruris (Acute) Urinary tract infection (Acute) Iron deficiency anemia (Acute) Incontinence of feces (Acute) Incontinence of urine (Acute) Pica (Acute) Failure to thrive (Acute) Debility (Acute) Vital Signs Temp Pulse Resp BP Pulse Ox O2 Del Method O2 Flow Rate 97.2 F L 79 18 131/68 H 91 Nasal Cannula 1 09/14/22 14:03 09/14/22 14:03 09/14/22 14:03 09/14/22 14:03 09/15/22 09:17 09/15/22 10:00 09/15/22 10:00 FiO2 91 09/11/22 12:50 Oxygen Flow Rate (L/min) 1 Oxygen Delivery Method Nasal Cannula Weight: 116.981 kg Body Mass Index (BMI) 45.1 Sodium 141 mmol/L (136-145) 09/11/22 07:32 Potassium 3.8 mmol/L (3.5-5.1) 09/11/22 07:32 Chloride 106 mmol/L (98-107) 09/11/22 07:32 Carbon Dioxide 33.0 mmol/L (21.0-32.0) H 09/11/22 07:32 Anion Gap 2 (5-15) L 09/11/22 07:32 BUN 18 mg/dL (7-18) 09/11/22 07:32 Creatinine 0.93 mg/dL (0.55-1.02) 09/11/22 07:32 Est GFR (MDRD) Af Amer 74 mL/min (>60) 09/11/22 07:32 Est GFR (MDRD) Non-Af 61 mL/min (>60) 09/11/22 07:32 BUN/Creatinine Ratio 19.4 RATIO (10-20) 09/11/22 07:32 Glucose 163 mg/dL (74-106) H 09/11/22 07:32 Assessment/Plan: 1. Pain: acetaminophen 1000mg PO Q6H PRN pain 1-10. Resident has received 2 doses for pain 6-7 in knee/abdomen. Please continue to monitor for increased pain and PRN usage. 2. Bowel: Miralax 17gm PO daily, senna/docusate 2T PO BID and MOM 30mL PO x1 PRN constipation. Last documented bowel movement on 09/11. Please continue to monitor for constipation and PRN usage. 3. Iron deficiency anemia: Ferrex 150mg PO DAILY, ascorbic acid 500mg PO daily. Dr. Robert consulted. Please continue to monitor hemoglobin (last 8.6g/dL), dark stools and constipation. 4. Hyperlipidemia: atorvastatin 40mg PO QHS. Please continue to monitor annual lipid panel (last 09/01/22), LFTs (last 09/09/22) and for muscle pain. 5. Stroke: clopidogrel 75mg PO daily. Please continue to monitor hemoglobin and S/S of bleeding. 6. Diabetes mellitus II: glimepiride 2mg PO DAILYCM. Please continue to monitor hemoglobin A1c every 3 months (last 8.7% 09/10/22), glucose (last 145mg/dL) and S/S of hypoglycemia (BEERs criteria medication, dose recently decreased). 7. Tinea cruris: ketoconazole cream topically BID thru 09/21/22. Please continue to monitor for improvement of infection. Fluconazole stopped due to nausea/vomiting per nursing note. 8. Nausea/vomiting: promethazine 25mg PO Q4H PRN nausea/vomiting. Please continue to monitor for S/S of nausea/vomiting and PRN usage. Resident has used 3 doses so far. Assessment/Plan for indications treated with psychotropic medications: None Medical chart and medication regimen reviewed. The following medication irregularities or issues were identified: None Date of Note:: 09/15/22
[2022-09-15] MEDS: Glucerna Shake 120 ML LIQUID PO (12:34)
[2022-09-15 13:37] VITALS: BP 141/84; PULSE 88; RESP 16; TEMP 36.4; O2SAT 96
--- NOTE | 2022-09-15 14:55 | RAD_ITS ---
STUDY: X-RAY - ABDOMEN/PELVIS REASON FOR EXAM: Female, 82 years old. Nausea, Diarrhea TECHNIQUE: Single AP view of the abdomen / pelvis. COMPARISON: Comparison is made with prior examination 09/11/2022. FINDINGS: There is evidence of dilated small bowel loops down to the region of the pelvis. Moderate amount of fecal material is seen in the right hemicolon. This may represent an early small bowel obstruction. Follow-up is recommended. The visualized liver, spleen and kidneys are grossly normal in size and morphology. Normal soft tissue structures. There are diffuse degenerative changes of the visualized lumbar spine. The patient is status post bilateral hip replacement. RAD/Abdomen Single View IMPRESSION: Dilated small bowel loops. Fecal material is seen in the right hemicolon. This may represent an early small bowel obstruction. Follow-up is recommended. Electronically Signed: Lamonte Gaona MD at 15:28 EDT ,
--- NOTE | 2022-09-15 14:55 | CHAPLAIN ---
Type of Pastoral Visit ___ Initial Visit ___ Follow-up Visit ___ On-call Visit ___ General Patient Visit ___ Spiritual Assessment ___ Family Conference ___ Bereavement ___ Rapid Response ___ Code Blue ___ Other (describe below) Pastoral Care Referral From ___ Patient ___ Family ___ Nurse ___ Physician ___ Direct Service Worker ___ Clasp Machine Operator ___ Other (describe below) Sacrament/Intervention ___ Active listening ___ Anointing ___ Mu-Ism ___ Bereavement ___ Communion ___ Sierra exploration ___ ___ Life review ___ Prayer ___ Reconciliation ___ Sacrament of Sick ___ Supportive presence ___ Wedding ___ Other (describe below) Pastoral Comments patient care taking place for patient and so visit was not possible at this time
[2022-09-15] MEDS: Ondansetron ODT 4 MG Tablet 8 MG PO (15:10)
--- NOTE | 2022-09-15 16:13 | NURSING ---
Pt c/o of Nausea, Vomiting, and pain in abdomen. Dr. Triplett updated and N.O. for KUB. Xray of abdomen completed and showed possible small bowel obstruction. Dr. Triplett updated N.O. for CT with contrast of Abdomen. Pre Cert Started Case # [id number]. Faxed Clinical Information .
--- NOTE | 2022-09-15 18:24 | NURSING ---
Per Dr. Triplett would like pt to go to ER. Report called to ER. Family notified at this time.
--- NOTE | 2022-09-15 22:43 | DS.PCM_ITS ---
Providers Date of Admission: 09/10/22 Primary Care Physician: Dr. Jim Triplett MD Consultations 09/11/22 08:05 Consult: Gastroenterology Routine Consulting Provider: [facility] Reason for Consult: Iron deficiency anemia, pica, 4 point Hemoglobin drop ov er 4 years. EMERGENT Consult: No MD Notified: Yes Date Notified: 09/13/22 Time Notified: 14:00 Method of Notification: Verbal Reason For Visit: UTI, FTT Diagnosis Discharge Diagnosis (1) Anemia: Status: Inactive Code(s): D64.9 - Anemia, unspecified Plan 82 year old female with below past medical history hospitalized for weakness secondary to acute anemia secondary to gastrointestinal bleeding, Klebsiella Oxytoca urinary tract infection, complicated by tinea cruris, constipation, admitted to TCU with debility, here for rehabilitation, strengthening, prior to discharge home with daughter. * Debility - PT/OT. * Pain - Tylenol 1000mg po q6h prn pain (1-100). * Bowel - Miralax 17gm daily, senna/colace 2 tablets bid, ,MOM 30ml po x 1 prn, Soap suds enema. * Adult immunization - Administer pneumonia vaccine, covid19 vaccine, flu vaccine as appropriate. * DVT prophylaxis - Hold, active gastrointestinal bleed. * Iron deficiency anemia - Ferrex 150mg daily, Vitamin C 500mg daily, Consult Dr. Robert for EGD/colonoscopy, etiology of bleeding unknown, but patient had pica for 6 months, and her hemoglobin dropped from 13 to 8 over 4 years. * Hyperlipidemia - Atorvastatin 40mg qhs. * K. Oxytoca urinary tract infection - Cipro 250mg bid thru 09/14/2022, Lactobacillus 1 tablet daily thru 09/14/2022. * Stroke - Plavix 75mg daily. * Tinea cruris - Fluconazole 150mg every 3 days thru 09/20/2022, Nystatin powder bid, ketoconazole cream topical bid x 10 days. * Fluid overload - Furosemide 40mg daily thru 09/14/2022. * Diabetes Mellitus II - Glimepiride 8mg daily, Pioglitazone 15mg daily. * Skin irritation - Calmoseptine topical bid. Medications at Discharge Home Medications ascorbic acid (vitamin C) 500 mg tablet (Vitamin C) 500 mg PO DAILY SUPPLEMENT 09/09/22 atorvastatin 40 mg tablet 40 mg PO QHS CHOLESTEROL 09/09/22 clopidogrel 75 mg tablet 75 mg PO DAILY BLOOD THINNER 09/09/22 nystatin 100,000 unit/gram topical powder (Nyamyc) 1 applic topical BID skin folds, groin, under breasts 09/09/22 polyethylene glycol 3350 17 gram/dose oral powder 17 g PO DAILY STOOL 09/09/22 polysaccharide iron complex 150 mg iron capsule (Ferrex) 150 mg PO DAILY iron 09/09/22 acetaminophen 500 mg tablet 1,000 mg PO Q6H PRN Pain 09/15/22 glimepiride 2 mg tablet 2 mg PO DAILY DIABETES 09/15/22 menthol 0.44 %-zinc oxide 20.6 % topical ointment (Calmoseptine) 1 applic topical BID@0600,2200 09/15/22 nut.tx.gluc.intol,lac-free,soy (Glucerna Shake oral liquid) 120 ml PO TIDCM 09/15/22 ondansetron 8 mg disintegrating tablet 8 mg PO Q8H PRN Nausea 09/15/22 sennosides 8.6 mg-docusate sodium 50 mg tablet (Senna with Docusate Sodium) 2 tab-cap PO BID STOOL 09/15/22 Hospital Course Operations None Procedures None Summary of Care Provided Minutes Spent on Discharge: 35 Hospital Course: 82 year old female with below past medical history hospitalized for weakness secondary to acute anemia secondary to gastrointestinal bleeding, Klebsiella Oxytoca urinary tract infection, complicated by tinea cruris, constipation, admitted to TCU with debility, here for rehabilitation, strengthening, prior to discharge home with daughter. 09/13/2022 Resident had nausea, Zofran mildly helpful, I stopped Fluconazole, Pioglitazone hoping nausea would improve. 09/15/2022 Resident nauseous, vomiting, KUB shows stool in cecum, ascending colon, resident has been given multiple laxatives to try to clear constipation, but KUB read was possible obstruction, CT abdomen/pelvis ordered but required precert which would not happen until next day. Resident admitted with anemia which happened over 4 years, Dr. Robert was planning EGD, but her nausea is intractable. 09/15/2022 Discharge to [facility] [place] [facility] for intractable nausea, vomiting, CT abdomen/pelvis to rule out bowel obstruction. Physical Exam Const alert General Appearance: cooperative HEENT normocephalic Eyes PERRL and EOMs intact bilaterally Neck supple, no JVD and no carotid bruits Resp normal respiratory effort, normal air movement and clear to auscultation bilaterally Cardio regular rate and regular rhythm GI normal to inspection, nondistended, normoactive bowel sounds, non-tender and non-distended Extremity normal capillary refill General Extremity: Negative for edema Skin no rashes or lesions noted General Skin Exam: no breakdown Psych affect normal Appearance: appropriate Medical Records Data Medical Nutrition Assessment Dietitian: Malnutrition Criteria Met Start: 09/15/22 12:38 Freq: Status: Active Protocol: Document 09/15/22 12:38 [facility] (Rec: 09/15/22 12:39 [facility] [id number]) Nutrition Malnutrition Evidence of Malnutrition Exists Yes Malnutrition (severe): Acute Illness/Injury Evidenced By Suboptimal Energy Intake ( Severe),Weight Loss (Severe) Intake Problem Inadequate Oral Intake Status Inactive Problem Clinical Problem Acute Disease or Injury Related Malnutrition Etiology severe related to issues with nausea, vomiting, diarrhea x 5 days making it difficult to consume adequate nutrition to meet est nutritional needs Signs/Symptoms as evidenced by 1.8% wt loss and <50% po intake x 5 days Status Active Problem Recommendation Dietitian Recommendations/Changes Will liberalize diet to Regular d/t s/s of malnutrition - once po intake consistently improved can change to therapeutic diet if indicated Will order 4 oz glucerna shake tid w/ meals for increased nutrition if consumed Will order 4 oz glucerna shake tid w/ medpass for increased nutrition if consumed. Weight / BMI Weight Weight: 116.981 kg Body Mass Index (BMI) 45.1 ABG / Lab / Microbiology Data Result Diagrams: 09/11/22 07:32 09/11/22 07:32 Laboratory: Laboratory Results - last 24 hr 09/15/22 06:29: POC Glucose 145 H 09/15/22 09:30: Urine Color Yellow, Urine Clarity Sl. Cloudy, Urine pH 6.0, Ur Specific [place] 1.015, Urine Protein 15 H, Urine Glucose (UA) Normal, Urine Ketones Negative, Urine Occult Blood Negative, Urine Nitrite Negative, Urine Bilirubin Negative, Urine Urobilinogen Normal, Ur Leukocyte Esterase Negative, Urine RBC 0 SEEN, Urine WBC 0 SEEN, Ur Squamous Epith Cells 0-5 SEEN, Urine Bacteria 0 SEEN, Urine Mucus 0 SEEN Microbiology: Microbiology 09/15/22 08:05 Stool C. difficile DNA Amplification - Final 09/15/22 08:05 Stool Enteric Bacteriology - Final Radiography Diagnostic Testing: Radiology Impression KUB X-Ray 09/15/22 14:55 IMPRESSION: Dilated small bowel loops. Fecal material is seen in the right hemicolon. This may represent an early small bowel obstruction. Follow-up is recommended. Electronically Signed: Lamonte Gaona MD at 15:28 EDT , D/C Instructions Discharge Diet: - (NPO.) Weight Bearing Status: Weight bearing as tolerated Call your doctor if you observe: Fever of 101 or Higher, Inability to urinate, Inability to have a bowel movement, Shortness of breath, Dizziness, Fainting spells, Swelling in the ankles, Chest pain and Uncontrolled pain Additional Instructions: 09/15/2022 Discharge to [facility] [place] [facility] for intractable nausea, vomiting, CT abdomen/pelvis to rule out bowel obstruction. Meaningful Use Info Meaningful Use Diagnoses (Choose all that apply): None applicable Discharge Plan Admission Admit Date/Time: 09/10/22 18:44 Primary Reason for Your Visit: Debility. Attending Provider: Jim Triplett Chi Primary Care Provider: Jim Triplett Chi Instructions Additional Instructions / Restrictions: 09/15/2022 Discharge to [facility] [place] [facility] for intractable nausea, vomiting, CT abdomen/pelvis to rule out bowel obstruction. Discharge Orders/Prescriptions Prescriptions: No Action polysaccharide iron complex [Ferrex 150] 150 mg iron capsule 150 mg PO DAILY ascorbic acid (vitamin C) [Vitamin C] 500 mg Tablet 500 mg PO DAILY nystatin [Nyamyc] 100,000 unit/gram powder 1 applic TOPICAL BID polyethylene glycol 3350 17 gram/dose powder 17 g PO DAILY atorvastatin 40 MG tablet 40 mg PO QHS clopidogrel 75 MG tablet 75 mg PO DAILY sennosides-docusate sodium [Senna with Docusate Sodium] 8.6-50 mg Tablet 2 tab-cap PO BID acetaminophen 500 mg Tablet 1,000 mg PO Q6H PRN (Reason: Pain) glimepiride 2 mg Tablet 2 mg PO DAILY ondansetron 8 mg Tablet,Disintegrating 8 mg PO Q8H PRN (Reason: Nausea) Glucerna Shake Liquid 120 ml PO TIDCM menthol-zinc oxide [Calmoseptine] 0.44-20.6 % Ointment 1 applic TOPICAL BID@0600,2200 Referrals / Follow Up: Jim Triplett Chi, MD [Primary Care Provider] - Disposition Disposition (needs filled in before D/C Order can be placed): [facility]
--- NOTE | 2022-09-22 08:38 | MDS.RN ---
Information for the mds was obtained from review of the clinical record, interview of resident, staff, and direct observation of resident's care.
== END 2022-09-15 18:00 | disposition short-term general hospital (02) | DRG 690 ==
PROVIDERS: Admitting Provider Family Medicine Geriatric Medicine; PCP Family Medicine Geriatric Medicine; Visit Provider Family Medicine Geriatric Medicine
DX: N39.0 Urinary tract infection, site not specified (principal); K92.2 Gastrointestinal hemorrhage, unspecified; Z68.42 Body mass index [BMI] 45.0-49.9, adult; F50.89 Other specified eating disorder; R62.7 Adult failure to thrive; B35.6 Tinea cruris; E11.9 Type 2 diabetes mellitus without complications; D50.0 Iron deficiency anemia secondary to blood loss (chronic); E78.5 Hyperlipidemia, unspecified; R15.9 Full incontinence of feces; E87.70 Fluid overload, unspecified; R11.2 Nausea with vomiting, unspecified; K59.00 Constipation, unspecified; Z79.84 Long term (current) use of oral hypoglycemic drugs; Z79.02 Long term (current) use of antithrombotics/antiplatelets; Z79.899 Other long term (current) drug therapy; R32 Unspecified urinary incontinence; B96.89 Other specified bacterial agents as the cause of diseases classified elsewhere
CPT/HCPCS: 71046; 73521; 73562; 74018; 80048; 81001; 82962; 85025; 87086; 87493; 87506; 97110; 97162; 97166; 97530; 97535; 97802; A4216

== ENCOUNTER 2022-09-15 18:21 | Inpatient (IN) | payer MEDICARE, SELFPAY ==
[2022-09-15 18:22] VITALS: BP 120/58; PULSE 86; RESP 18; TEMP 36.9; O2SAT 91; BMI 45.9
--- NOTE | 2022-09-15 19:59 | CT_ITS ---
ACR Level 3 findings have been noted. An addendum which confirms receipt of the report will follow. STUDY: CT Abdomen And Pelvis W/ Contrast Injection 09/15/2022 8:38 PM REASON FOR EXAM: Female, 82 years old. ABDOMINAL PAIN abd pain, vomiting TECHNIQUE: Transaxial images were obtained without oral contrast, and with IV 100mL Isovue-370 intravenous contrast. Individualized dose optimization techniques were used for this CT. COMPARISON: None. FINDINGS: There are atherosclerotic calcifications of visualized coronary arteries. There is bilateral pneumonia. There are bilateral pleural effusions. Unremarkable liver. Unremarkable gallbladder and extrahepatic biliary system. Unremarkable spleen. Unremarkable pancreas. Ascites. Unremarkable bilateral adrenal glands. There are hypodensities in the right kidney. These are consistent for cysts. No follow up required. No acute findings of the left kidney. Unremarkable visualized stomach. There is a paralytic ileus of the small intestine with mild gaseous distention. There are multiple colonic diverticula consistent with diverticulosis. There is non-visualization of the appendix. 55 x 39 mm apical core type lesion around the hepatic flexure of the colon. This is causing a colonic obstruction. There are calcifications of the abdominal aorta. This is consistent for atherosclerotic disease. There is no abdominal aortic aneurysm. Unremarkable inferior vena cava. Subcentimeter mesenteric lymph nodes. Unremarkable urinary bladder. Free fluid in the pelvis. There is an umbilical hernia containing fat. There are diffuse degenerative changes of the visualized lumbar spine. Total bilateral hip arthroplasty. CT/Abdomen/Pelvis W IV Cont ONLY IMPRESSION: (NOT LISTED IN ORDER OF SIGNIFICANCE) 55 x 39 mm apical core type lesion around the hepatic flexure of the colon. This is causing a colonic obstruction. There are bilateral pleural effusions. There is bilateral pneumonia. Other findings as above. Non standard communication findings protocol was initiated. Electronically Signed: Rodolfo Johnson MD at 20:43 EDT ,
[2022-09-15] MEDS: Morphine 2 MG/ML Syringe IV ×2 (20:05→22:20)
[2022-09-15] MEDS: Ondansetron 4 MG/2 ML Vial IV (20:05)
[2022-09-15] MEDS: 0.9% Normal Saline 1,000 ML 125 ML IV (20:05)
[2022-09-15 20:19] LABS: Absolute Lymphocyte Count 1.27 X10^3/uL (0.83-4.51); Absolute Neutrophil Count 7.5 X10^3/uL (2.0-7.7); Basophil# 0.02 X10^3/uL; Basophil% 0.2 % (0-1); Eosinophil# 0.24 X10^3/uL; Eosinophils% 2.4 % (0-5); Hematocrit 34.5 % (37-47); Hemoglobin 9.9 g/dL (12.0-15.0); Lymphocyte # 1.27 X10^3/ul (0.83-4.51); Lymphocyte % 12.8 % (19-41); Mean Corp Hgb Conc 28.7 g/dL (32-36); Mean Corpuscular Hgb 24.8 pg (27.0-32.0); Mean Corpuscular Volume 86.5 fL (81-99); Mean Platelet Vol. 11.6 fl (6.2-12.0); NRBC Flagged by Analyzer 0 % (0-5); Neutrophil # 7.49 X10^3/uL (2.7-7.7); Neutrophil % 75.2 % (47-70); POSITIVE MORPHOLOGY YES; Platelet Count 374 K/mm3 (150-450); RBC Distribution Width CV 20.1 % (11.6-14.6); RBC Distribution Width SD 61.9 fl (35.1-43.9); Red Blood Count 3.99 M/mm3 (4.2-5.4)
[2022-09-15 20:23] LABS: Differential Indicated SCAN CRITERIA MET
[2022-09-15 20:36] LABS: ALB/GLOB Ratio 0.4 RATIO (0.9-2.4); AST(SGOT) 20 U/L (15-37); Alanine Aminotransfer ALT/SGPT 12 U/L (13-56); Albumin, Serum 2.1 g/dL (3.2-5.0); Alkaline Phosphatase 49 U/L (45-117); Anion Gap 4 (5-15); BUN 12 mg/dL (7-18); BUN/Creat Ratio 18.5 RATIO (10-20); Chloride 103 mmol/L (98-107); Creatinine, Serum 0.65 mg/dL (0.55-1.02); EST Glomerular Filtration Rate 93 mL/min (>60); Est Glom Filt Rate - Afr Amer 113 mL/min (>60); Estimated Creatinine Clearance 37.45 ml/min; Globulin 4.7 g/dL (2.2-4.2); Glucose 106 mg/dL (74-106); Lipase 70 U/L (73-393); Potassium 3.9 mmol/L (3.5-5.1); Protein, Total 6.8 g/dL (6.4-8.2); Sodium Level 141 mmol/L (136-145)
[2022-09-15 20:37] VITALS: BP 134/78; PULSE 66; RESP 16; O2SAT 98
[2022-09-15 20:56] LABS: Anisocytosis 1+; Platelet Estimate ADEQUATE (ADEQ); Red Cell Morphology N CHROM NORMAL (NORM C&C)
--- NOTE | 2022-09-15 21:25 | ED.VIS.GI ---
HPI HPI - GI History of Present Illness Chief Complaint: Abd Pain Informant: patient and family Narrative Narrative: Patient is an 82-year-old female presenting from TCU for concern of small bowel obstruction. Patient is in the TCU for anemia, failure to thrive and generalized weakness. She had 3 episodes of vomiting yesterday has had decreased oral intake since yesterday. She has some abdominal discomfort and feels that her abdomen is bloated. She does not recall when her last bowel movement was. She states she is not passing gas but she has burping. Has a history of a hernia surgery in the past. No recent endoscopy. Patient is currently on 2 L of oxygen. Daughter notes she was on 1 L yesterday. No other complaints at this time. Patient had an x-ray in the TCU which was concerning for small bowel obstruction was sent to the ER for further evaluation. [facility] Medical History Anemia Diabetes Stroke TIA (transient ischemic attack) Type II diabetes mellitus Home Medications ascorbic acid (vitamin C) 500 mg tablet (Vitamin C) 500 mg PO DAILY SUPPLEMENT 09/09/22 [History Last Taken 09/15/22 05:41] atorvastatin 40 mg tablet 40 mg PO QHS CHOLESTEROL 09/09/22 [History Last Taken 09/14/22 21:20] clopidogrel 75 mg tablet 75 mg PO DAILY BLOOD THINNER 09/09/22 [History Last Taken 09/15/22 05:41] nystatin 100,000 unit/gram topical powder (Nyamyc) 1 applic topical BID skin folds, groin, under breasts 09/09/22 [History Last Taken 09/15/22 18:25] polyethylene glycol 3350 17 gram/dose oral powder 17 g PO DAILY STOOL 09/09/22 [History Last Taken 09/15/22 05:41] polysaccharide iron complex 150 mg iron capsule (Ferrex) 150 mg PO DAILY iron 09/09/22 [History Last Taken 09/15/22 05:41] acetaminophen 500 mg tablet 1,000 mg PO Q6H PRN Pain 09/15/22 [History Last Taken 09/15/22 11:07] glimepiride 2 mg tablet 2 mg PO DAILY DIABETES 09/15/22 [History Last Taken 09/13/22 08:00] menthol 0.44 %-zinc oxide 20.6 % topical ointment (Calmoseptine) 1 applic topical BID@0600,2200 09/15/22 [History Last Taken 09/15/22 05:43] nut.tx.gluc.intol,lac-free,soy (Glucerna Shake oral liquid) 120 ml PO TIDCM 09/15/22 [History Last Taken 09/15/22 12:34] ondansetron 8 mg disintegrating tablet 8 mg PO Q8H PRN Nausea 09/15/22 [History Last Taken 09/15/22 15:10] sennosides 8.6 mg-docusate sodium 50 mg tablet (Senna with Docusate Sodium) 2 tab-cap PO BID STOOL 09/15/22 [History Last Taken 09/15/22 05:41] Allergy/AdvReac Type Severity Reaction Status Date / Time No Known Allergies Allergy Verified 09/15/22 18:22 Family History Mother , at 91. Dementia Father , at 76. Cancer Alcohol abuse Sister Parkinson disease Surgical History History of hernia repair History of right hip replacement History of total left hip replacement Social History household members: children and other details: Daughter Carissa. Smoking Status: Never smoker alcohol intake: never substance use type: does not use ROS ROS ED Constitutional Constitutional ED: Denies chills or fever(s) ENT ENT ED: Denies rhinorrhea or sore throat Cardiovascular Cardiovascular: Denies chest pain or palpitations Respiratory/Chest Respiratory/Chest: Denies cough or dyspnea Gastrointestinal Gastrointestinal: Reports abdominal pain, constipation, nausea and vomiting; Denies melena Genitourinary Genitourinary ED: Denies dysuria or hematuria Musculoskeletal Musculoskeletal: Denies arthralgias or myalgias Integumentary Denies rash Neurologic Neurologic: Reports weakness; Denies headache(s) Psychiatric Psychiatric: Denies anxiety Hematologic/Lymphatic Hematologic/Lymphatic: Reports easy bleeding EXAM Physical Exam Const Vital Signs: 09/15/22 18:22 09/15/22 20:37 Temperature 98.5 F Temperature Source Temporal Pulse Rate 86 66 Respiratory Rate 18 16 Blood Pressure 120/58 L 134/78 H Blood Pressure Mean 78 96 Pulse Ox 91 98 Oxygen Delivery Method Room Air Oxygen Flow Rate (L/min) 2 Positive well nourished and well developed General Appearance ED: well developed, NAD and pallor HEENT Reports moist mucous membranes Eyes PERRL and EOMs intact bilaterally Neck supple Resp normal respiratory effort and clear to auscultation bilaterally Cardio regular rate and regular rhythm Cardio Narrative: Positive murmur GI GI Narrative: Patient is a periumbilical hernia. It is soft. No overlying erythema. Inspection: abdominal distention Auscultation: hypoactive bowel sounds Palpation: tender periumbilical; Negative for guarding Extremity full ROM General Extremety ED: Yes edema; Negative for tenderness General Extremity: edema Neuro moves all extremities Sensorium / Orientation: alert, oriented to person and oriented to place Motor Exam: general weakness Psych mental status grossly normal Skin no wounds General Skin Exam: pallor; Negative for jaundice MDM MDM MDM Narrative Medical decision making narrative: Is evaluated for constipation, vomiting, abdominal distention and abnormal x-ray concerning for small bowel obstruction. Patient overall is well-appearing. Is given IV Zofran, gentle IV fluids if she is not able to take any p.o. today as well as 2 mg IV morphine. Patient is hesitant to take any pain medication which is why she is given a low dose. CBC shows a stable anemia with a hemoglobin of 9.9, normal CMP and unremarkable lipase. CT of the abdomen pelvis shows a 55 x 39 mm apical core type lesion around the hepatic flexure of the colon which is causing colonic obstruction. In addition patient has bilateral pleural effusions and the CT read states bilateral pneumonia. As far as pneumonia patient does not have any new shortness of breath, fever, respiratory symptoms or leukocytosis. Will defer treatment for pneumonia at this time. Case is discussed with surgery on-call, Dr. Rivera, who recommends surgical intervention likely tomorrow as well as an NG tube. NG tube was placed which patient tolerated reasonably well and x-ray shows placement in the GI track. It is pulled back a couple centimeters however since it is looped in the stomach. Due to patient's comorbidities and surgical request, patient is admitted to medicine service. Patient's family is informed of patient CT findings and plan of care. Patient and family are agreeable with this. Lab Data Attestation: I reviewed the patient's lab results. Labs: Laboratory Results - last 24 hr 09/15/22 09/15/22 18:23 18:23 WBC 10.0 RBC 3.99 L Hgb 9.9 L Hct 34.5 L MCV 86.5 MCH 24.8 L MCHC 28.7 L RDW Std Deviation 61.9 H RDW Coeff of Naren 20.1 H Plt Count 374 MPV 11.6 Immature Gran % (Auto) 0.400 Neut % (Auto) 75.2 H Lymph % (Auto) 12.8 L Sunflower % (Auto) 9.0 Eos % (Auto) 2.4 Baso % (Auto) 0.2 Absolute Neuts (auto) 7.5 Absolute Lymphs (auto) 1.27 Nucleated RBC % 0 Platelet Estimate ADEQUATE RBC Morphology N CHROM Anisocytosis 1+ Sodium 141 Potassium 3.9 Chloride 103 Carbon Dioxide 34.0 H Anion Gap 4 L BUN 12 Creatinine 0.65 Estim Creat Clear Calc 37.45 Est GFR (MDRD) Af Amer 113 Est GFR (MDRD) Non-Af 93 BUN/Creatinine Ratio 18.5 Glucose 106 Calcium 9.0 Total Bilirubin 0.40 AST 20 ALT 12 L Alkaline Phosphatase 49 Total Protein 6.8 Albumin 2.1 L Globulin 4.7 H Albumin/Globulin Ratio 0.4 L Lipase 70 L Radiography Diagnostic Testing: Clinical Impression(s) from Imaging Studies Abdomen/Pelvis CT 09/15/22 19:59 IMPRESSION: (NOT LISTED IN ORDER OF SIGNIFICANCE) 55 x 39 mm apical core type lesion around the hepatic flexure of the colon. This is causing a colonic obstruction. There are bilateral pleural effusions. There is bilateral pneumonia. Other findings as above. Non standard communication findings protocol was initiated. Electronically Signed: Rodolfo Johnson MD at 20:43 EDT , ADDENDUM: 09/15/222101 IMPRESSION: (NOT LISTED IN ORDER OF SIGNIFICANCE) 55 x 39 mm apical core type lesion around the hepatic flexure of the colon. This is causing a colonic obstruction. There are bilateral pleural effusions. There is bilateral pneumonia. Other findings as above. Non standard communication findings protocol was initiated. N.B. : Radha Hamilton DO, confirmed on 09/15/2022 20:55:44 (ET) that the healthcare facility has received the radiology report. Electronically Signed: Rodolfo Johnson MD at 20:43 EDT Reading Location ID and State: [facility] in [place] / [place] , Service support , Discharge Plan Dx/Rx/DC Orders Clinical Impression: Large bowel obstruction, Colonic mass, Pleural effusion Disposition Disposition: Acute Care Hospital [facility] Discharge Date/Time: 09/15/22 22:29
[2022-09-15 21:42] VITALS: BP 143/77; PULSE 87; RESP 20; TEMP 36.9; O2SAT 95
--- NOTE | 2022-09-15 21:47 | HP.PCM.HOS_ITS ---
HPI - General General Date of Admission: 09/15/22 Date of Service: 09/15/22 Chief Complaint: abdominal pain HPI Narrative YECENIA LAZAR, is a 82 F who presents with progressive abdominal pain. Pain is primarily in the right upper quadrant. No bowel movement in days. Patient has been vomiting. Patient was just discharged on for hospitalization for microcytic anemia. Patient was transfused 2 units of packed red blood cells during that admission. Patient saw Dr. Robert, gastroenterology just yesterday and were planning on doing colonoscopy. However the patient got worse today and presented to the hospital. In the emergency room, patient had a CAT scan that showed a 55 x 39 mm apical core type lesion around the hepatic flexure of the colon causing colonic obstruction with copious fecal material in the ascending colon. Dr. Rivera was contacted and saw the patient in the emergency room. States that the patient had a colonoscopy within the past 5 to 10years that was supposedly normal. That is not currently in our system. [facility] Medical History Anemia Diabetes Stroke TIA (transient ischemic attack) Type II diabetes mellitus Home Medications ascorbic acid (vitamin C) 500 mg tablet (Vitamin C) 500 mg PO DAILY SUPPLEMENT 09/09/22 [History Last Taken 09/15/22 05:41] atorvastatin 40 mg tablet 40 mg PO QHS CHOLESTEROL 09/09/22 [History Last Taken 09/14/22 21:20] clopidogrel 75 mg tablet 75 mg PO DAILY BLOOD THINNER 09/09/22 [History Last Taken 09/15/22 05:41] nystatin 100,000 unit/gram topical powder (Nyamyc) 1 applic topical BID skin folds, groin, under breasts 09/09/22 [History Last Taken 09/15/22 18:25] polyethylene glycol 3350 17 gram/dose oral powder 17 g PO DAILY STOOL 09/09/22 [History Last Taken 09/15/22 05:41] polysaccharide iron complex 150 mg iron capsule (Ferrex) 150 mg PO DAILY iron 09/09/22 [History Last Taken 09/15/22 05:41] acetaminophen 500 mg tablet 1,000 mg PO Q6H PRN Pain 09/15/22 [History Last Taken 09/15/22 11:07] glimepiride 2 mg tablet 2 mg PO DAILY DIABETES 09/15/22 [History Last Taken 09/13/22 08:00] menthol 0.44 %-zinc oxide 20.6 % topical ointment (Calmoseptine) 1 applic topical BID@0600,2200 09/15/22 [History Last Taken 09/15/22 05:43] nut.tx.gluc.intol,lac-free,soy (Glucerna Shake oral liquid) 120 ml PO TIDCM 09/15/22 [History Last Taken 09/15/22 12:34] ondansetron 8 mg disintegrating tablet 8 mg PO Q8H PRN Nausea 09/15/22 [History Last Taken 09/15/22 15:10] sennosides 8.6 mg-docusate sodium 50 mg tablet (Senna with Docusate Sodium) 2 tab-cap PO BID STOOL 09/15/22 [History Last Taken 09/15/22 05:41] Allergy/AdvReac Type Severity Reaction Status Date / Time No Known Allergies Allergy Verified 09/15/22 18:22 Family History Mother , at 91. Dementia Father , at 76. Cancer Alcohol abuse Sister Parkinson disease Surgical History History of hernia repair History of total left hip replacement Social History household members: children and other details: Daughter Carissa. Smoking Status: Never smoker alcohol intake: never substance use type: does not use ROS ROS Narrative Decreased appetite. Abdominal pain abdominal distention. Umbilical hernia. Lower extremity edema. No chest pain or palpitations. When patient was having the anemia issues, she would get short of breath with exertion. All review of systems were negative except as mentioned above in the history of present illness and the other review of systems. Vital Signs Vital Signs Vital Signs: 09/15/22 18:22 09/15/22 20:37 09/15/22 21:42 Temperature 36.9 C 36.9 C Temperature Source Temporal Temporal Pulse Rate 86 66 87 Respiratory Rate 18 16 20 H Blood Pressure 120/58 L 134/78 H 143/77 H Blood Pressure Mean 78 96 99 Pulse Ox 91 98 95 Oxygen Delivery Method Room Air Nasal Cannula Oxygen Flow Rate (L/min) 2 2 Weight Weight: 121.4 kg Body Mass Index (BMI) 45.9 Physical Exam Const alert and no apparent distress HEENT normocephalic, head/scalp atraumatic, hearing grossly normal bilaterally and moist oral mucous membranes Eyes PERRL and EOMs intact bilaterally Resp normal respiratory effort, no retractions, no use of accessory muscles and clear to auscultation bilaterally Cardio regular rate, regular rhythm, S1 normal heart sound and S2 normal heart sound GI GI Narrative: Distended. Hypoactive bowel sounds. Right upper quadrant tenderness with slight rebound. Extremity Extremity Narrative: Bilateral lower extremity edema. Neuro oriented x3 and moves all extremities Sensorium / Orientation: awake and alert Psych affect normal Results Lab / Micro Data Attestation: I reviewed the patient's lab results. Result Diagrams: 09/15/22 18:23 09/15/22 18:23 Labs: Laboratory Results - last 24 hr 09/15/22 18:23: WBC 10.0, RBC 3.99 L, Hgb 9.9 L, Hct 34.5 L, MCV 86.5, MCH 24.8 L, MCHC 28.7 L, RDW Std Deviation 61.9 H, RDW Coeff of Naren 20.1 H, Plt Count 374, MPV 11.6, Immature Gran % (Auto) 0.400, Neut % (Auto) 75.2 H, Lymph % (Auto) 12.8 L, Holt % (Auto) 9.0, Eos % (Auto) 2.4, Baso % (Auto) 0.2, Absolute Neuts (auto) 7.5, Absolute Lymphs (auto) 1.27, Nucleated RBC % 0, Platelet Estimate ADEQUATE, RBC Morphology N CHROM, Anisocytosis 1+ 09/15/22 18:23: Sodium 141, Potassium 3.9, Chloride 103, Carbon Dioxide 34.0 H, Anion Gap 4 L, BUN 12, Creatinine 0.65, Estim Creat Clear Calc 37.45, Est GFR (MDRD) Af Amer 113, Est GFR (MDRD) Non-Af 93, BUN/Creatinine Ratio 18.5, Glucose 106, Calcium 9.0, Total Bilirubin 0.40, AST 20, ALT 12 L, Alkaline Phosphatase 49, Total Protein 6.8, Albumin 2.1 L, Globulin 4.7 H, Albumin/Globulin Ratio 0.4 L, Lipase 70 L Radiology Impression Abdomen/Pelvis CT 09/15/22 19:59 IMPRESSION: (NOT LISTED IN ORDER OF SIGNIFICANCE) 55 x 39 mm apical core type lesion around the hepatic flexure of the colon. This is causing a colonic obstruction. There are bilateral pleural effusions. There is bilateral pneumonia. Other findings as above. Non standard communication findings protocol was initiated. Electronically Signed: Rodolfo Johnson MD at 20:43 EDT , ADDENDUM: 09/15/222101 IMPRESSION: (NOT LISTED IN ORDER OF SIGNIFICANCE) 55 x 39 mm apical core type lesion around the hepatic flexure of the colon. This is causing a colonic obstruction. There are bilateral pleural effusions. There is bilateral pneumonia. Other findings as above. Non standard communication findings protocol was initiated. N.B. : Radha Hamilton DO, confirmed on 09/15/2022 20:55:44 (ET) that the healthcare facility has received the radiology report. Electronically Signed: Rodolfo Johnson MD at 20:43 EDT , Assessment & Plan Assessment/Plan (1) Colonic mass: PLAN: Appears to be causing colonic obstruction. Dr. Rivera saw the patient in the emergency room plan is for surgery sometime on the . NQSIP performed and patient is high risk for just complications, any complications, pneumonia, cardiac complications, surgical site infections, UTI, VTE, renal failure, ileus, anastomotic leak, readmission, return to OR, , discharged to nursing or rehab facility and sepsis. With that, patient is otherwise medically optimized to proceed with surgery as the risk of further delay with surgery outweigh the benefits. Patient has agreed to proceed with surgery. No further medical optimization is necessary at this point in time before the patient goes to surgery. (2) Large bowel obstruction: PLAN: Secondary to above. Patient have surgery tomorrow. NG tube to be placed in the emergency room. N.p.o. Patient will be on normal saline at 125 cc per hour for the time being (3) Pleural effusion: PLAN: Suspect transudative. Larger on the right. Hold off on any diuretics at this time until after surgery depending on our fluid status is doing. Echo performed on showed an EF of 55 to 60%. PLAN: Plan Chronic conditions * TIA: Remote. Hold clopidogrel pending surgery * Morbid obesity: BMI of 45.9. Complicates care, recovery. * Iron deficiency anemia: Secondary to colon mass. Monitor. No need for transfusion at this time. * Hyperlipidemia: Statin on hold pending surgery. * Diabetes mellitus type 2: [id number]. Glimepiride on hold. Sl iding scale insulin. VTE prophylaxis: SCDs CODE STATUS: Addressed with the patient and her daughter and Dr. Rivera. Patient is to be DNR Comfort Care arrest and okay for intubation. Charges/Coding Visit Charges Inpatient E&M: 66915 Init Hosp L3
--- NOTE | 2022-09-15 21:47 | CON.PCM.SX_ITS ---
Assessment & Plan Assessment/Plan (1) Large bowel obstruction: (2) Colonic mass: (3) Pleural effusion: PLAN: Plan Did review CT abdomen pelvis personally as well as with the patient and her daughter. Patient does have a ascending colon mass which is causing a bowel obstruction and likely cause of her previous anemia. Currently patient vital signs are stable and labs are mostly within normal limits her albumin is 2.1. We will plan for an open right hemicolectomy early afternoon unless any of her vitals were to changed overnight. Discussed the surgery including risks not limited to bleeding, infection, possibility of being intubated after surgery in the ICU, anastomosis leak patient and her daughter had no further question this time were agreeable with surgery. Did discuss CODE STATUS with the patient she is full code for surgery and then DNR CCA, no CPR- okay for intubation Deanna Rivera M.D. Pager: [phone] [facility] [address] [place] [address], [facility], [address] [place] [id number] Office: [phone] HPI Consult Data Date of Consult: 09/16/22 HPI Narrative HPI Narrative: YECENIA LAZAR, is a 82 F who presents to the ER from TCU due to abdominal pain. Patient had previously went to the ER in 09/09/2022 due to weakness and found to have anemia and was given 2 units packed red blood cells while she was in the hospital and was sent to TCU for rehab patient's hemoglobin did improve up to 9 from around 7. Patient previous states she may have had colonoscopy 5 years ago never had an EGD. However patient's daughter is accompanying patient in the ER and states that she has been living with her for the last 5 years she has not had a colonoscopy during that time. Patient is unable to tell me last time she had flatus or had a bowel movement or if she had nausea and vomiting today. Per TCU pt was nauseated, no vomiting and loose stools (09/13) after laxatives (miralax?daily and sennakot). Pt has had decreased appetite and hasn't ate much of the last few days. Per patient's daughter they did give her some laxatives in the TCU. [facility] Medical History (Reviewed 09/16/22 @ 01:[address] NATHANIEL Lanier Anemia Diabetes Stroke TIA (transient ischemic attack) Type II diabetes mellitus Home Medications ascorbic acid (vitamin C) 500 mg tablet (Vitamin C) 500 mg PO DAILY SUPPLEMENT 09/09/22 [History Last Taken 09/15/22 05:41] atorvastatin 40 mg tablet 40 mg PO QHS CHOLESTEROL 09/09/22 [History Last Taken 09/14/22 21:20] clopidogrel 75 mg tablet 75 mg PO DAILY BLOOD THINNER 09/09/22 [History Last Taken 09/15/22 05:41] nystatin 100,000 unit/gram topical powder (Nyamyc) 1 applic topical BID skin folds, groin, under breasts 09/09/22 [History Last Taken 09/15/22 18:25] polyethylene glycol 3350 17 gram/dose oral powder 17 g PO DAILY STOOL 09/09/22 [History Last Taken 09/15/22 05:41] polysaccharide iron complex 150 mg iron capsule (Ferrex) 150 mg PO DAILY iron 09/09/22 [History Last Taken 09/15/22 05:41] acetaminophen 500 mg tablet 1,000 mg PO Q6H PRN Pain 09/15/22 [History Last Taken 09/15/22 11:07] glimepiride 2 mg tablet 2 mg PO DAILY DIABETES 09/15/22 [History Last Taken 09/13/22 08:00] menthol 0.44 %-zinc oxide 20.6 % topical ointment (Calmoseptine) 1 applic top ical BID@0600,2200 09/15/22 [History Last Taken 09/15/22 05:43] nut.tx.gluc.intol,lac-free,soy (Glucerna Shake oral liquid) 120 ml PO TIDCM 09/15/22 [History Last Taken 09/15/22 12:34] ondansetron 8 mg disintegrating tablet 8 mg PO Q8H PRN Nausea 09/15/22 [History Last Taken 09/15/22 15:10] sennosides 8.6 mg-docusate sodium 50 mg tablet (Senna with Docusate Sodium) 2 tab-cap PO BID STOOL 09/15/22 [History Last Taken 09/15/22 05:41] Allergy/AdvReac Type Severity Reaction Status Date / Time No Known Allergies Allergy Verified 09/15/22 18:22 Family History Mother , at 91. Dementia Father , at 76. Cancer Alcohol abuse Sister Parkinson disease Surgical History History of hernia repair History of right hip replacement History of total left hip replacement Social History household members: children and other details: Daughter Carissa. Smoking Status: Never smoker alcohol intake: never substance use type: does not use Physical Exam Const alert, oriented x3 and no apparent distress HEENT normocephalic and head/scalp atraumatic Resp normal respiratory effort Cardio regular rate GI soft to palpation; Negative for non-distended Palpation: tender epigastric, RUQ and other (equivicol rebound) and hernia other (at umbilicus); Negative for guarding Extremity General Extremity: edema Skin Skin Narrative: Yeast infection lower abdomen/groin Neuro CN's II-XII intact bilaterally Psych mental status grossly normal Lab / Micro Data Result Diagrams: 09/16/22 05:30 09/16/22 05:30 Labs: Laboratory Results - last 24 hr 09/15/22 18:23: WBC 10.0, RBC 3.99 L, Hgb 9.9 L, Hct 34.5 L, MCV 86.5, MCH 24.8 L, MCHC 28.7 L, RDW Std Deviation 61.9 H, RDW Coeff of Naren 20.1 H, Plt Count 374, MPV 11.6, Immature Gran % (Auto) 0.400, Neut % (Auto) 75.2 H, Lymph % (Auto) 12.8 L, [place] % (Auto) 9.0, Eos % (Auto) 2.4, Baso % (Auto) 0.2, Absolute Neuts (auto) 7.5, Absolute Lymphs (auto) 1.27, Nucleated RBC % 0, Platelet Estimate ADEQUATE, RBC Morphology N CHROM, Anisocytosis 1+ 09/15/22 18:23: Sodium 141, Potassium 3.9, Chloride 103, Carbon Dioxide 34.0 H, Anion Gap 4 L, BUN 12, Creatinine 0.65, Estim Creat Clear Calc 37.45, Est GFR (MDRD) Af Amer 113, Est GFR (MDRD) Non-Af 93, BUN/Creatinine Ratio 18.5, Glucose 106, Calcium 9.0, Total Bilirubin 0.40, AST 20, ALT 12 L, Alkaline Phosphatase 49, Total Protein 6.8, Albumin 2.1 L, Globulin 4.7 H, Albumin/Globulin Ratio 0.4 L, Lipase 70 L Radiology Impression Abdomen/Pelvis CT 09/15/22 19:59 IMPRESSION: (NOT LISTED IN ORDER OF SIGNIFICANCE) 55 x 39 mm apical core type lesion around the hepatic flexure of the colon. This is causing a colonic obstruction. There are bilateral pleural effusions. There is bilateral pneumonia. Other findings as above. Non standard communication findings protocol was initiated. Electronically Signed: Rodolfo Johnson MD at 20:43 EDT , ADDENDUM: 09/15/222101 IMPRESSION: (NOT LISTED IN ORDER OF SIGNIFICANCE) 55 x 39 mm apical core type lesion around the hepatic flexure of the colon. This is causing a colonic obstruction. There are bilateral pleural effusions. There is bilateral pneumonia. Other findings as above. Non standard communication findings protocol was initiated. N.B. : Radha Hamilton DO, confirmed on 09/15/2022 20:55:44 (ET) that the healthcare facility has received the radiology report. Electronically Signed: Rodolfo Johnson MD at 20:43 EDT ,
--- NOTE | 2022-09-15 22:00 | RAD_ITS ---
EXAM: XR ABDOMEN, 1 VIEW CLINICAL INDICATION: NG Insertion TECHNIQUE: Frontal supine view of the abdomen. This report was created using [employer] report generation technology. Exam is centered over the mid to lower chest and upper to mid abdomen. Lower abdomen and pelvis are not included. COMPARISON: Chest radiograph September 12, 2022. FINDINGS: LOWER THORAX: Mild cardiomegaly and mild patchy basilar opacities, greater on the left, similar to prior chest radiograph. GASTROINTESTINAL TRACT: Prominent distended gas-filled small bowel loops in the upper abdomen, estimated to be at least 3.9 cm. ORGANS: Unremarkable as visualized. No organomegaly. No abnormal calcifications. BONES/JOINTS: No acute pathology. SOFT TISSUES: No acute pathology. TUBES, LINES AND DEVICES: Enteric tube extends to the left to the gastric fundus,, then to the right of midline, tip in the expected region of the gastric pylorus or duodenal bulb. RAD/Abdomen Single View (Portable) IMPRESSION: 1. Enteric tube tip to the right of midline at the gastric pylorus or duodenal bulb. Appears adequately positioned. 2. Dilated small bowel loops. Exam includes most of the chest and upper to mid abdomen. 3. Lung base opacities, similar. Electronically Signed: Raven Matthew MD at 23:55 EDT ,
--- NOTE | 2022-09-15 22:27 | ED.RN ---
MD REVIEWED XRAY AND OKAY'D TO PULL TUBE BACK APPROX 5 CM. RN DID THIS, PT STILL C/O PAIN TO NOSE. OFFICIAL KUB READING NOT IN FROM RADIOLOGIST. 2 MG MORPHINE GIVEN.
[2022-09-15 22:37] VITALS: BMI 44.4
[2022-09-15 23:25] VITALS: BMI 41.8
[2022-09-15 23:30] VITALS: BP 140/53; PULSE 84; RESP 20; TEMP 36.7; O2SAT 94
[2022-09-16] VITALS (23 sets, daily range): BP systolic 114–177; BP diastolic 45–88; PULSE 72–86; RESP 12–23; TEMP 36.2–37.1; O2SAT 91–100; BMI 41.8
--- NOTE | 2022-09-16 | IMM_PTH ---
PATIENT: YECENIA LAZAR LOC: MS3 U#:[id number] AGE/SX: 82/F ROOM: [facility] [place] RE09/15/[address]: Dr. Di Garcia MD : 1940 BED: 1 DIS: 09/29/2022 SPEC #: [id number] RECD: 09/22/22 13:51 STATUS: LC REQ #: [id number] BEATRICE: 09/16/22 00:[address]: Deanna Rivera DEPT: IMMUNOHISTOCHEMISTRY RECD BY: Juana Núñez ENTERED: 09/22/22 13:53 SP TYPE: IMMUNO OTHR DR: MD Dr. Hudson Eller DO Dr. Mark Tereletsky, DO Dr. Paige Pierce, MD Dr. Tai Chi Kwok, MD Tissues: Right colon Procedures: MSH2 (add) MLH-1 (add) MSH6 (add) Anti-PMS2 (add) JERONIMO-2 (add) P53 (add) KI-67 (initial) PHYSICIAN & [address] [address] SPECIMEN INFORMATION: Tissue Source: Right colon Clinical Info: Large bowel obstruction, colonic mass Specimen Number: [id number] #16 CPT code: 05177, 76239 x6 METHODOLOGY: Deparaffinized sections of prefer/formalin-fixed tissue or PAP/DQ stained slides are incubated with monoclonal/polyclonal antibodies/oligonucleotide probes. Localization is made via biotin free immunoperoxidase method. Appropriate controls are performed and reacted as expected. Results on target cell population are indicated in the following table: RESULTS: ANTIBODY / CLONE RESULT Block 16 JERONIMO-2 (SP21) positive MLH-1 (M1) negative MSH2 (25D12) positive MSH6 (44) positive PMS2 (ABX7441) positive Ki-67 (30-9) positive, >90% P53 (DO-7) positive, 15% These tests were developed and their performance characteristics determined by [facility]. They may not have been cleared or approved by the U.S. Food and Drug Administration. The FDA has determined that such clearance or approval is not necessary. The above immunohistochemical/dualISH markers are ordered and reviewed by the Pathologist. INTERPRETATION: Right colon, hemicolectomy: Invasive ductal carcinoma. 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 AM:lee ann 09/23/2022
[2022-09-16 00:51] LABS: Bedside Glucose 110 mg/dL (74-106)
[2022-09-16] MEDS: 0.9% Normal Saline 1,000 ML 125 ML IV (05:21)
--- NOTE | 2022-09-16 05:55 | EKG12_ITS ---
Test Reason : AFIB Blood Pressure : / mmHG Vent. Rate : 074 BPM Atrial Rate : 074 BPM P-R Int : 178 ms QRS Dur : 134 ms QT Int : 456 ms P-R-T Axes : 036 -46 040 degrees QTc Int : 506 ms Sinus rhythm with Premature atrial complexes Right bundle branch block Left anterior fascicular block Bifascicular block Abnormal ECG Confirmed by KOMAL CASTRO, RYAN ([id number]), health editor RANI SOTELO ([id number]) on 09/20/2022 1:04:45 PM Referred By: BRYN Confirmed By:RYAN SAUCEDA MD
[2022-09-16 06:03] LABS: Absolute Lymphocyte Count 0.72 X10^3/uL (0.83-4.51); Absolute Neutrophil Count 7.8 X10^3/uL (2.0-7.7); Basophil# 0.03 X10^3/uL; Basophil% 0.3 % (0-1); Eosinophil# 0.11 X10^3/uL; Eosinophils% 1.2 % (0-5); Hematocrit 34.9 % (37-47); Hemoglobin 9.6 g/dL (12.0-15.0); Lymphocyte # 0.72 X10^3/ul (0.83-4.51); Lymphocyte % 7.7 % (19-41); Mean Corp Hgb Conc 27.5 g/dL (32-36); Mean Corpuscular Hgb 24.5 pg (27.0-32.0); Mean Platelet Vol. 11.3 fl (6.2-12.0); Monocyte# 0.63 X10^3/uL; Monocyte% 6.7 % (0-10); NRBC Flagged by Analyzer 0 % (0-5); Neutrophil # 7.83 X10^3/uL (2.7-7.7); Neutrophil % 83.7 % (47-70); POSITIVE MORPHOLOGY YES; Platelet Count 344 K/mm3 (150-450); RBC Distribution Width CV 20.2 % (11.6-14.6); RBC Distribution Width SD 64.4 fl (35.1-43.9); Red Blood Count 3.92 M/mm3 (4.2-5.4); White Blood Count 9.4 K/mm3 (4.4-11.0)
[2022-09-16 06:11] LABS: Differential Indicated SCAN CRITERIA MET
[2022-09-16 06:20] LABS: International Normalized Ratio 1.2; Prothrombin Time (Protime)PT. 14.7 SECONDS (11.7-14.9)
[2022-09-16 06:30] LABS: Bedside Glucose 113 mg/dL (74-106)
[2022-09-16 06:32] LABS: Anisocytosis 1+; Differential Comment SCANNED; Macrocytosis RARE; Microcytosis RARE
[2022-09-16] MEDS: Nystatin Powder 15gm Bottle 1 APPLIC TOPICAL ×3 (06:44→20:40)
[2022-09-16 06:51] LABS: ALB/GLOB Ratio 0.5 RATIO (0.9-2.4); AST(SGOT) 17 U/L (15-37); Alanine Aminotransfer ALT/SGPT 9 U/L (13-56); Alkaline Phosphatase 49 U/L (45-117); Anion Gap 3 (5-15); BUN 11 mg/dL (7-18); BUN/Creat Ratio 18.1 RATIO (10-20); Calcium,Total 8.7 mg/dL (8.5-10.1); Chloride 104 mmol/L (98-107); Creatinine, Serum 0.61 mg/dL (0.55-1.02); EST Glomerular Filtration Rate 100 mL/min (>60); Est Glom Filt Rate - Afr Amer 121 mL/min (>60); Estimated Creatinine Clearance 37.45 ml/min; Globulin 4.4 g/dL (2.2-4.2); Glucose 104 mg/dL (74-106); Potassium 4.2 mmol/L (3.5-5.1); Protein, Total 6.4 g/dL (6.4-8.2); Sodium Level 139 mmol/L (136-145)
[2022-09-16 08:42] LABS: Hemoglobin A1c 8.4 % (3.8-5.6)
--- NOTE | 2022-09-16 10:41 | WOUNDNOTE ---
Was consulted to see patient for unknown reason. there are no wounds documented. Pt is currently off the unit for surgery.
--- NOTE | 2022-09-16 11:00 | COL._PTH ---
PATIENT: YECENIA LAZAR LOC: MS3 U#:[id number] AGE/SX: 82/F [place] [facility] [place]: Dr. Di Garcia MD : 1940 BED: 1 DIS: 09/29/2022 SPEC #: [id number] RECD: 09/16/22 13:44 STATUS: LC REQ #: [id number] BEATRICE: 09/16/22 11:[address]: Deanna Rivera DEPT: SURGICAL PATHOLOGY RECD BY: Tiffani Mirza ENTERED: 09/16/22 13:57 SP TYPE: COLON OTHR DR: MD Dr. Hudson Eller DO Dr. Mark Tereletsky, DO Dr. Tai Chi Kwok, MD Dr. Tamera Robotham, MD Tissues: Colon, NOS Procedures: Surgery Specimen Level Comments: @ Ordering doctor for SUVI edited from to @ by RAMILA at 09/16/22 1408 @ Submitting doctor edited from to @ by RGOOD at 09/16/22 1408 HEADER OPERATION: Open right hemicolectomy PRE-OP DIAGNOSIS: Large bowel obstruction, colonic mass TISSUE SUBMITTED: Right colon MICROSCOPIC DIAGNOSIS Right colon, hemicolectomy: Invasive adenocarcinoma. See cancer synoptic report below. AM:lee ann 09/21/2022 COMMENT COLON CANCER SUMMARY Procedure: Right hemicolectomy Tumor site: Right colon Tumor size: 12 x 6.5 x 2 cm Macroscopic tumor perforation: Not identified Histologic type: Adenocarcinoma Histologic grade: G2 (moderately differentiated with focal mucinous features) Tumor extension: Tumor invades through the muscularis propria into subserosal fat. Margins: All margins are uninvolved by carcinoma, high grade dysplasia and/or adenoma. Margins examined: Proximal, distal and serosal Treatment effect: Unknown Lymphvascular invasion: Not identified Perineural invasion: Not identified Tumor deposits: Not identified Regional lymph nodes: 13 of 13 lymph nodes negative for metastatic carcinoma. Ancillary studies: See microsatellite instability study by IHC ([id number]) for complete details. Positive (loss of mismatch protein; microsatellite instability detected). Total loss of MLH1 (one of four markers) Additional pathologic findings: None PATHOLOGIC STAGE: T3 N0 Mx The above summary is in compliance with [employer] (CAP) Cancer Protocols Checklist and [place] [employer] Committee on Cancer (AJCC), Staging Manual, 8th Ed. This case was reviewed and diagnosis discussed with Dr. Rivera on 09/24/2022. MICROSCOPIC DESCRIPTION Slides are reviewed. GROSS DESCRIPTION Received in fixative is one container labeled with the patient's name and designated right colon. The specimen consists of a 29 cm segment of right colon and attached 15.6 cm segment of terminal ileum and attached 4 cm segment of appendix. Located 11 cm from the distal margin of resection (closest mucosal margin) and at a distance of 7 cm distal to the ileocecal valve is a fungating apple core lesion that occupies 100% of the circumference of the bowel and measures 12.2 x 6.5 x 2 cm. The remainder of the uninvolved small and large bowel mucosa are grossly unremarkable. Serial sections of the appendix do not reveal mass lesions. Two strips of mucosa are present free in the container each measuring approximately 3.9 x 0.6 cm. Serial sections through the mass reveal extension of mass into underlying soft tissue; however, no extension through to the serosal surface is grossly identified. The attached fibrofatty tissue contains a number of nodules resembling lymph nodes. / AM:rg 09/17/2022 Durability Technician sections are submitted as follows: 1 - fragments free in container, 2 - proximal and distal mucosal margins, 3 - ileocecal valve, 4-7 - tumor, 8-12 - multiple lymph nodes in each cassette, 13-16 - additional sections of tumor. / AM:rg 09/20/2022 TC:0 CPT: 25148
--- NOTE | 2022-09-16 12:51 | OP.PCM_ITS ---
Report of Operation Date of Procedure: 09/16/22 Pre-Operative Diagnosis: Large bowel obstruction, ascending colon mass Post-Operative Diagnosis: Same Surgery/Procedure Performed:: Open right hemicolectomy Description of Surgical Findings:: Acsending colon mass Surgeon: Deanna Rivera machinist helper marine: Opal Gilmore Type of Anesthesia: General/Supplemental Anesthesiologist: Hudson Smith Special Medications: Cefotetan 2 g IV x1 Specimen's removed: Right colon Estimated Blood Loss (mL): 20 cc Description of Procedure: Synoptic Portion: Element Response Options Operation performed with curative intent. Yes Tumor location Ascending colon Extent of colon and vascular resection Right hemicolectomy - ileocolic at base, right branch of middle colic Description of procedure Patient was brought into the operating placed plan operating table. Timeout was completed verifying correct patient, procedure, site, positioning and special equipment prior began procedure. General anesthesia was induced. West catheter was placed. Patient's abdomen was prepped draped in usual sterile fashion. Midline incision was made at the 10 blade scalpel deepened with electrocautery. There was noted to be some mesh supraumbilical due to previous hernia repair?this was divided and left in place. Wound protector was placed. A very dilated cecum/proximal ascending colon was noted with some areas beginning of necrotic colon in a couple spots due to the distention, hard mass was felt at the distal ascending colon. Transverse colon was divided with ANA 75 staple- making sure to include the right branch of the middle colic and the specimen. The white line of Toldt was divided laterally. ANA-75 stapler was also used to divide the terminal ileum. The ileocolic vessels were located and suture-ligated at the base of takeoff from the aorta. Mesentery was divided using the Ligasure impact. Specimen was sent to pathology. An anastomosis was done with the ANA 75 stapler along with a TL 60 between the transverse colon and terminal ileum making sure to use the tinea and the antimesenteric border of the small bowel. A crotch stitch was placed with 3-0 silk. That staple line was oversewn with Lembert sutures of 3-0 silk, anastomoses was patent. Abdomen was irrigated with saline and suction. The abdomen was checked and there was no gross evidence of metastatic disease on liver/abd wall, etc. The incision was closed using interrupted sutures of 1 Prolene. Skin reena were used on the skin. 4 x 4's and tape were placed. Patient was unable to be extubated. Patient tolerated surgery well and was taken intubated to the ICU unit in stable condition. Complications none
[2022-09-16] MEDS: Lactated Ringers 1,000 ML 100 ML IV (14:25)
[2022-09-16 14:40] LABS: Bedside Glucose 134 mg/dL (74-106)
[2022-09-16 14:40] LABS: Bedside Glucose 74 mg/dL (74-106)
[2022-09-16 15:10] LABS: Allen Test Positive; Base Excess 5 mmol/L (-2 to +2); Bicarbonate 30.4 mmol/L (22-26); Blood Gas Specimen Type ART; FI02 40; Mode AC; O2 Delivery Device Adult Vent; PEEP 5; PO2 65 mmHG (75-100); RR 12; SITE L Radial; SO2 92 % (95-99); Total Carbon Dioxide 32 mmol/L; Vt 400; pH 7.38 (7.35-7.45)
--- NOTE | 2022-09-16 15:15 | RAD_ITS ---
STUDY: X-RAY CHEST REASON FOR EXAM: Female, 82 years old. ETT tube placement TECHNIQUE: Single AP portable view of the chest. COMPARISON: Comparison is made with prior examination dated 09/12/2022. FINDINGS: An endotracheal tube is seen. The tip is at the level of the silviano. This should be pulled back approximately 2.2 cm. An orogastric tube is seen with the tip in the distal stomach/descending portion of the duodenum. Since prior study, there has been progressive increased markings at the lung bases suggestive of bibasilar atelectasis superimposed on scarring. There is blunting of both cause phrenic angles. There is borderline cardiomegaly. Normal mediastinum and ishmael. Normal visualized pulmonary arteries. There is atherosclerotic calcification of the aortic arch with tortuosity. There are diffuse degenerative changes of the visualized thoracic spine. Normal visualized ribs, clavicles, and shoulders. There is no demonstrated abnormality of the visualized soft tissue structures of the upper abdomen. RAD/Chest 1 View (Portable) IMPRESSION: The tip of the endotracheal tube is at the tracheal bifurcation. It should be pulled back approximately 2.2 cm cyst. Findings in keeping with bibasilar atelectasis superimposed on basilar scarring. Electronically Signed: Lamonte Gaona MD at 15:24 EDT ,
--- NOTE | 2022-09-16 15:15 | CON.PCM.CC_ITS ---
Assessment & Plan Assessment/Plan (1) Acute respiratory failure with hypoxia: (2) Morbid obesity: (3) Colonic mass: (4) Pleural effusion: PLAN: Plan RECOMMENDATIONS: 1. Initiate propofol and fentanyl 2. Spontaneous breathing and awakening trials per protocol 3. Antibiotics per surgery 4. Wean supplemental oxygen as tolerated 5. Await pathology from surgical intervention 6. Initiation of tube feeds per surgery IMPRESSIONS: 1. Acute hypoxic respiratory failure following surgery Patient did have pleural effusion and what appears to be chronic hypercarbic respiratory failure prior to surgery. It is unclear if this is obesity hypoventilation as no ABG was obtained on room air. Patient with poor tidal volumes and increased AA gradient following surgery. Patient likely has an element of atelectasis. No acute infiltrate noted on chest x-ray. Will place patient on sedation and pain control and mechanically ventilated overnight. Spontaneous breathing and awakening trials in the morning. No indication for antibiotics from a pulmonary standpoint. 2. Large bowel obstruction status post hemicolectomy Patient with partial colectomy today. Patient currently n.p.o. with NG in place. Defer to surgery on initiation of tube feeds. Anticipate leaving NG in place once patient is extubated. 3. Pleural effusion Unclear etiology. Patient does not appear to have a thoracentesis previously. Patient may require a CT of the chest to evaluate for associated masses. EF recently showed preserved ejection fraction. Patient may benefit from diuretics following extubation. 4. History of TIA/morbid obesity/advanced age/hyperlipidemia/type 2 diabetes mellitus/iron deficiency anemia Complicates care, management, recovery and prognosis. Cover with sliding scale insulin for now as patient is not on tube feeds. No indication for transfusion at this time. Once patient is extubated, evaluation for possible obesity hypoventilation following cessation of narcotics would be appropriate. TIME: 35 minutes critical care time spent addressing patient's acute hypoxic respiratory failure, large bowel obstruction, pleural effusion, review of all data and collaboration with care team HPI Consult Data Date of Consult: 09/16/22 HPI Narrative Reason for Consultation: Abdominal pain HPI Narrative: YECNEIA LAZAR is an 82 F, with past medical history listed below, who presented to [facility] on 09/15/2022 from TCU secondary to concerns for small bowel obstruction. Patient had been in the TCU secondary to anemia, failure to thrive and generalized weakness. Patient had had 3 episodes of emesis since the day prior and had decreased p.o. intake. Patient also noting significant abdominal discomfort and a sensation of bloating. Patient reportedly had not been passing gas, but was burping. Patient did have a history of hernia surgery in the past, but had not recently had any endoscopies. Patient was requiring 2 L nasal cannula to maintain saturations. In the ER, patient was afebrile, normotensive and requiring 2 L nasal cannula. Laboratory work-up at that time showed a white blood cell count of 10, hemoglobin of 9.9 and platelets of 374. Bicarbonate was elevated at 34 with a glucose of 106 and normal LFTs. A CT of the abdomen showed a 55 x 39 mm apical cord lesion around the hepatic flexure. Patient was evaluated by the hospitalist and admitted to the floor. Surgery had seen the patient and recommended partial colectomy. On 09/16/2022, patient did have a partial colectomy. Patient reportedly had no complications. However, following surgery I was asked to evaluate the patient by anesthesia. Patient was desaturating requiring 100% FiO2 to maintain a satur ation of 94%. Patient was taking tidal volumes of only 100 to 200 cc and breathing at 20-30 times per minute. After discussion with anesthesia, there was a request for an ICU bed for further evaluation. I agree with this assessment and the patient was transferred to the intensive care unit. Patient was evaluated approximately an hour and a half later while in the intensive care unit. At that time, patient continued to have some desaturation while on 5 of pressure support and tidal volumes were approximately 200. After discussing with the family at the bedside, the decision was made to initiate propofol and fentanyl and allow patient to rest overnight. The patient was made aware of the plan and agreed. Patient did report significant abdominal pain at that time. Unable to obtain a full review of systems secondary to intubated status. Patient reportedly has never been a smoker. Patient has not required supplemental oxygen prior to her most recent hospitalization. Jeferson aparicio has never required an inhaler per her daughter [facility] Medical History Anemia Diabetes Stroke TIA (transient ischemic attack) Type II diabetes mellitus Home Medications ascorbic acid (vitamin C) 500 mg tablet (Vitamin C) 500 mg PO DAILY SUPPLEMENT 09/09/22 [History Last Taken 09/15/22 05:41] atorvastatin 40 mg tablet 40 mg PO QHS CHOLESTEROL 09/09/22 [History Last Taken 09/14/22 21:20] clopidogrel 75 mg tablet 75 mg PO DAILY BLOOD THINNER 09/09/22 [History Last Taken 09/15/22 05:41] nystatin 100,000 unit/gram topical powder (Nyamyc) 1 applic topical BID skin folds, groin, under breasts 09/09/22 [History Last Taken 09/15/22 18:25] polyethylene glycol 3350 17 gram/dose oral powder 17 g PO DAILY STOOL 09/09/22 [History Last Taken 09/15/22 05:41] polysaccharide iron complex 150 mg iron capsule (Ferrex) 150 mg PO DAILY iron 09/09/22 [History Last Taken 09/15/22 05:41] acetaminophen 500 mg tablet 1,000 mg PO Q6H PRN Pain 09/15/22 [History Last Taken 09/15/22 11:07] glimepiride 2 mg tablet 2 mg PO DAILY DIABETES 09/15/22 [History Last Taken 09/13/22 08:00] menthol 0.44 %-zinc oxide 20.6 % topical ointment (Calmoseptine) 1 applic topical BID@0600,2200 09/15/22 [History Last Taken 09/15/22 05:43] nut.tx.gluc.intol,lac-free,soy (Glucerna Shake oral liquid) 120 ml PO TIDCM 09/15/22 [History Last Taken 09/15/22 12:34] ondansetron 8 mg disintegrating tablet 8 mg PO Q8H PRN Nausea 09/15/22 [History Last Taken 09/15/22 15:10] sennosides 8.6 mg-docusate sodium 50 mg tablet (Senna with Docusate Sodium) 2 tab-cap PO BID STOOL 09/15/22 [History Last Taken 09/15/22 05:41] Allergy/AdvReac Type Severity Reaction Status Date / Time No Known Allergies Allergy Verified 09/15/22 18:22 Family History Mother , at 91. Dementia Father , at 76. Cancer Alcohol abuse Sister Parkinson disease Surgical History History of hernia repair History of right hip replacement History of total left hip replacement Social History household members: children and other details: Daughter Carissa. Smoking Status: Never smoker alcohol intake: never substance use type: does not use ROS Review of Systems ROS Unobtainable: due to endotracheal tube Physical Exam Const no apparent distress Constitutional Narrative: Good vent synchrony. Morbidly obese. Patient does grimace intermittently off of pain control General Appearance: patient mechanically ventilated HEENT normocephalic and head/scalp atraumatic HEENT Narrative: NG in place. Crowded posterior pharynx Mouth: endotracheal tube in place Eyes PERRL, EOMs intact bilaterally and conjunctivae normal Neck full ROM Chest inspection of chest normal Resp normal respiratory effort and no use of accessory muscles Auscultation: diminished lung sounds; Negative for rales, rhonchi or wheezes Cardio regular rate, regular rhythm, S1 normal heart sound, S2 normal heart sound, no murmurs, no rub and no gallops GI normal to inspection, nondistended, normoactive bowel sounds no CVA tenderness Extremity General Extremity: edema bilateral (Bilateral) lower extremity Skin no rashes or lesions noted Skin Narrative: Abdominal wound is clean, dry and intact Neuro no focal motor deficits Sensorium / Orientation: sedated on vent Psych Mood & Affect: flat affect Medical Records Data Attestation: I reviewed the patient's medical records Medical records narrative: Did review CT scan of the abdomen and was notable for a small to moderate right- sided pleural effusion. Repeat chest x-ray in the intensive care unit shows proper position of endotracheal tube and NG. Medical Nutrition Assessment Dietitian: Malnutrition Criteria Met Start: 09/16/22 14:35 Freq: Status: Active Protocol: Document 09/16/22 14:35 RMA (Rec: 09/16/22 14:36 RMA [id number]) Nutrition Malnutrition Evidence of Malnutrition Exists Yes Malnutrition (severe): Acute Illness/Injury Evidenced By Suboptimal Energy Intake ( Severe),Weight Loss (Severe) Intake Problem Inadequate Oral Intake Etiology related to altered GI function /obstruction Signs/Symptoms as evidenced by NPO Status Active Problem Clinical Problem Acute Disease or Injury Related Malnutrition Etiology Severe protein-calorie malnutrition in the context of acute disease related to altered GI function and inadequate oral intake Signs/Symptoms as evidenced by currently NPO, poor PO x past 1-2 weeks meeting less than 50% estimated nutrition needs and weight loss~5-6% x past 1-2 weeks Status Active Problem Recommendation Dietitian Recommendations/Changes Recommend PO as tolerated to Transitional diet with goal of Carbohydrate-Controlled diet as medically able to be advanced. ONS as PO diet advanced for extra protein. Consider parenteral nutrition support if unable to advance diet in 48 hours. Lab / Micro Data Attestation: I reviewed the patient's lab results. Result Diagrams: 09/16/22 05:30 09/16/22 05:30 Labs: Laboratory Results - last 24 hr 09/15/22 18:23: WBC 10.0, RBC 3.99 L, Hgb 9.9 L, Hct 34.5 L, MCV 86.5, MCH 24.8 L, MCHC 28.7 L, RDW Std Deviation 61.9 H, RDW Coeff of Naren 20.1 H, Plt Count 374, MPV 11.6, Immature Gran % (Auto) 0.400, Neut % (Auto) 75.2 H, Lymph % (Auto) 12.8 L, [place] % (Auto) 9.0, Eos % (Auto) 2.4, Baso % (Auto) 0.2, Absolute Neuts (auto) 7.5, Absolute Lymphs (auto) 1.27, Nucleated RBC % 0, Platelet Estimate ADEQUATE, RBC Morphology N CHROM, Anisocytosis 1+ 09/15/22 18:23: Sodium 141, Potassium 3.9, Chloride 103, Carbon Dioxide 34.0 H, Anion Gap 4 L, BUN 12, Creatinine 0.65, Estim Creat Clear Calc 37.45, Est GFR (MDRD) Af Amer 113, Est GFR (MDRD) Non-Af 93, BUN/Creatinine Ratio 18.5, Glucose 106, Calcium 9.0, Total Bilirubin 0.40, AST 20, ALT 12 L, Alkaline Phosphatase 49, Total Protein 6.8, Albumin 2.1 L, Globulin 4.7 H, Albumin/Globulin Ratio 0.4 L, Lipase 70 L 09/16/22 00:28: POC Glucose 110 H 09/16/22 05:30: WBC 9.4, RBC 3.92 L, Hgb 9.6 L, Hct 34.9 L, MCV 89.0, MCH 24.5 L , MCHC 27.5 L, RDW Std Deviation 64.4 H, RDW Coeff of Naren 20.2 H, Plt Count 344, MPV 11.3, Immature Gran % (Auto) 0.400, Neut % (Auto) 83.7 H, Lymph % (Auto) 7.7 L, [place] % (Auto) 6.7, Eos % (Auto) 1.2, Baso % (Auto) 0.3, Absolute Neuts (auto) 7.8 H, Absolute Lymphs (auto) 0.72 L, Nucleated RBC % 0, Differential Comment SCANNED, Anisocytosis 1+, Microcytosis RARE, Macrocytosis RARE 09/16/22 05:30: Sodium 139, Potassium 4.2, Chloride 104, Carbon Dioxide 32.0, Anion Gap 3 L, BUN 11, Creatinine 0.61, Estim Creat Clear Calc 37.45, Est GFR (MDRD) Af Amer 121, Est GFR (MDRD) Non-Af 100, BUN/Creatinine Ratio 18.1, Glucose 104, Calcium 8.7, Total Bilirubin 0.40, AST 17, ALT 9 L, Alkaline Phosphatase 49, Total Protein 6.4, Albumin 2.0 L, Globulin 4.4 H, Albumin/Globulin Ratio 0.5 L 09/16/22 05:30: PT 14.7, INR 1.2, APTT 30.0 09/16/22 05:30: Hemoglobin A1c 8.4 H 09/16/22 06:11: POC Glucose 113 H 09/16/22 12:00: POC Glucose 74 09/16/22 12:05: Blood Type O POSITIVE, Antibody Screen NEGATIVE, Crossmatch See Detail 09/16/22 13:09: POC Glucose 134 H ABG Data ABG results: ABG 09/16/22 15:05 Specimen Type ART Sample Site L Radial pH 7.38 Bicarbonate Actual 30.4 H Total CO2 32 Base Excess 5 H O2 Saturation 92 L O2 % 40 ABG pCO2 51.0 H ABG pO2 65 L Ananda Test Positive Respiration Rate 12 O2 Delivery Device Adult Vent Vent Mode AC Tidal Volume 400 POC PEEP 5 Attestation: I personally reviewed and interpreted this ABG as follows: (Partially compensated chronic respiratory failure with increased AA gradient) Radiology Impression Abdomen/Pelvis CT 09/15/22 19:59 IMPRESSION: (NOT LISTED IN ORDER OF SIGNIFICANCE) 55 x 39 mm apical core type lesion around the hepatic flexure of the colon. This is causing a colonic obstruction. There are bilateral pleural effusions. There is bilateral pneumonia. Other findings as above. Non standard communication findings protocol was initiated. Electronically Signed: Rodolfo Johnson MD at 20:43 EDT , ADDENDUM: 09/15/222101 IMPRESSION: (NOT LISTED IN ORDER OF SIGNIFICANCE) 55 x 39 mm apical core type lesion around the hepatic flexure of the colon. This is causing a colonic obstruction. There are bilateral pleural effusions. There is bilateral pneumonia. Other findings as above. Non standard communication findings protocol was initiated. N.B. : Radha Hamilton DO, confirmed on 09/15/2022 20:55:44 (ET) that the healthcare facility has received the radiology report. Electronically Signed: Rodolfo Johnson MD at 20:43 EDT , KUB X-Ray 09/15/22 22:00 IMPRESSION: 1. Enteric tube tip to the right of midline at the gastric pylorus or duodenal bulb. Appears adequately positioned. 2. Dilated small bowel loops. Exam includes most of the chest and upper to mid abdomen. 3. Lung base opacities, similar. Electronically Signed: Raven Matthew MD at 23:55 EDT , Charges/Coding Procedures Hospitalists Procedures: [id number] [facility] Hr
[2022-09-16 15:30] LABS: CPK Total, Creatine Kinase 37 U/L (26-192); Triglycerides 67 mg/dL
[2022-09-16] MEDS: Propofol 10MG/Ml 1,000 MG/100 ML Bottle 6.6 MG CONT INF (15:39)
--- NOTE | 2022-09-16 15:44 | PCM.PN.HOSP ---
Subjective Subjective Patient was seen and examined today before she went to surgery today for removal of a colon neoplasm. She is currently in the ICU for recovery due to difficulty getting the patient off the ventilator postsurgery. Objective Data Objective Data Vital Signs: Vital Signs Temp Pulse Resp BP Pulse Ox O2 Del Method O2 Flow Rate 98.7 F 82 18 128/81 H 92 Mechanical Ventilator 3 09/16/22 04:30 09/16/22 15:37 09/16/22 15:37 09/16/22 04:30 09/16/22 15:37 09/16/22 14:04 09/15/22 23:30 FiO2 30 09/16/22 14:04 Oxygen Flow Rate (L/min) 3 Oxygen Delivery Method Mechanical Ventilator Weight: 110.7 kg Body Mass Index (BMI) 41.8 Intake & Output: Intake and Output for Last 24 Hours 09/14/22 09/15/22 09/16/22 23:59 23:59 23:59 Intake Total 1036.67 / 1036.67 Output Total 0 / 0 200 / 200 Balance 836.67 / 836.67 Medical Nutrition Assessment Dietitian: Malnutrition Criteria Met Start: 09/16/22 14:35 Freq: Status: Active Protocol: Document 09/16/22 14:35 RMA (Rec: 09/16/22 14:36 RMA [id number]) Nutrition Malnutrition Evidence of Malnutrition Exists Yes Malnutrition (severe): Acute Illness/Injury Evidenced By Suboptimal Energy Intake ( Severe),Weight Loss (Severe) Intake Problem Inadequate Oral Intake Etiology related to altered GI function /obstruction Signs/Symptoms as evidenced by NPO Status Active Problem Clinical Problem Acute Disease or Injury Related Malnutrition Etiology Severe protein-calorie malnutrition in the context of acute disease related to altered GI function and inadequate oral intake Signs/Symptoms as evidenced by currently NPO, poor PO x past 1-2 weeks meeting less than 50% estimated nutrition needs and weight loss~5-6% x past 1-2 weeks Status Active Problem Recommendation Dietitian Recommendations/Changes Recommend PO as tolerated to Transitional diet with goal of Carbohydrate-Controlled diet as medically able to be advanced. ONS as PO diet advanced for extra protein. Consider parenteral nutrition support if unable to advance diet in 48 hours. Lab / Micro Data Result Diagrams: 09/16/22 05:30 09/16/22 05:30 Labs: Laboratory Results - last 24 hr 09/15/22 18:23: WBC 10.0, RBC 3.99 L, Hgb 9.9 L, Hct 34.5 L, MCV 86.5, MCH 24.8 L, MCHC 28.7 L, RDW Std Deviation 61.9 H, RDW Coeff of Naren 20.1 H, Plt Count 374, MPV 11.6, Immature Gran % (Auto) 0.400, Neut % (Auto) 75.2 H, Lymph % (Auto) 12.8 L, [place] % (Auto) 9.0, Eos % (Auto) 2.4, Baso % (Auto) 0.2, Absolute Neuts (auto) 7.5, Absolute Lymphs (auto) 1.27, Nucleated RBC % 0, Platelet Estimate ADEQUATE, RBC Morphology N CHROM, Anisocytosis 1+ 09/15/22 18:23: Sodium 141, Potassium 3.9, Chloride 103, Carbon Dioxide 34.0 H, Anion Gap 4 L, BUN 12, Creatinine 0.65, Estim Creat Clear Calc 37.45, Est GFR (MDRD) Af Amer 113, Est GFR (MDRD) Non-Af 93, BUN/Creatinine Ratio 18.5, Glucose 106, Calcium 9.0, Total Bilirubin 0.40, AST 20, ALT 12 L, Alkaline Phosphatase 49, Total Protein 6.8, Albumin 2.1 L, Globulin 4.7 H, Albumin/Globulin Ratio 0.4 L, Lipase 70 L 09/16/22 00:28: POC Glucose 110 H 09/16/22 05:30: WBC 9.4, RBC 3.92 L, Hgb 9.6 L, Hct 34.9 L, MCV 89.0, MCH 24.5 L, MCHC 27.5 L, RDW Std Deviation 64.4 H, RDW Coeff of Naren 20.2 H, Plt Count 344, MPV 11.3, Immature Gran % (Auto) 0.400, Neut % (Auto) 83.7 H, Lymph % (Auto) 7.7 L, [place] % (Auto) 6.7, Eos % (Auto) 1.2, Baso % (Auto) 0.3, Absolute Neuts (auto) 7.8 H, Absolute Lymphs (auto) 0.72 L, Nucleated RBC % 0, Differential Comment SCANNED, Anisocytosis 1+, Microcytosis RARE, Macrocytosis RARE 09/16/22 05:30: Sodium 139, Potassium 4.2, Chloride 104, Carbon Dioxide 32.0, Anion Gap 3 L, BUN 11, Creatinine 0.61, Estim Creat Clear Calc 37.45, Est GFR (MDRD) Af Amer 121, Est GFR (MDRD) Non-Af 100, BUN/Creatinine Ratio 18.1, Glucose 104, Calcium 8.7, Total Bilirubin 0.40, AST 17, ALT 9 L, Alkaline Phosphatase 49, Total Protein 6.4, Albumin 2.0 L, Globulin 4.4 H, Albumin/Globulin Ratio 0.5 L 09/16/22 05:30: PT 14.7, INR 1.2, APTT 30.0 09/16/22 05:30: Hemoglobin A1c 8.4 H 09/16/22 05:30: Total Creatine Kinase 37, Triglycerides 67 09/16/22 06:11: POC Glucose 113 H 09/16/22 12:00: POC Glucose 74 09/16/22 12:05: Blood Type O POSITIVE, Antibody Screen NEGATIVE, Crossmatch See Detail 09/16/22 13:09: POC Glucose 134 H ABG Data ABG results: ABG 09/16/22 15:05 Specimen Type ART Sample Site L Radial pH 7.38 Bicarbonate Actual 30.4 H Total CO2 32 Base Excess 5 H O2 Saturation 92 L O2 % 40 ABG pCO2 51.0 H ABG pO2 65 L Ananda Test Positive Respiration Rate 12 O2 Delivery Device Adult Vent Vent Mode AC Tidal Volume 400 POC PEEP 5 Radiography Diagnostic Testing: Radiology Impression Abdomen/Pelvis CT 09/15/22 19:59 IMPRESSION: (NOT LISTED IN ORDER OF SIGNIFICANCE) 55 x 39 mm apical core type lesion around the hepatic flexure of the colon. This is causing a colonic obstruction. There are bilateral pleural effusions. There is bilateral pneumonia. Other findings as above. Non standard communication findings protocol was initiated. Electronically Signed: Rodolfo Johnson MD at 20:43 EDT , ADDENDUM: 09/15/222101 IMPRESSION: (NOT LISTED IN ORDER OF SIGNIFICANCE) 55 x 39 mm apical core type lesion around the hepatic flexure of the colon. This is causing a colonic obstruction. There are bilateral pleural effusions. There is bilateral pneumonia. Other findings as above. Non standard communication findings protocol was initiated. N.B. : Radha Hamilton DO, confirmed on 09/15/2022 20:55:44 (ET) that the healthcare facility has received the radiology report. Electronically Signed: Rodolfo Johnson MD at 20:43 EDT , KUB X-Ray 09/15/22 22:00 IMPRESSION: 1. Enteric tube tip to the right of midline at the gastric pylorus or duodenal bulb. Appears adequately positioned. 2. Dilated small bowel loops. Exam includes most of the chest and upper to mid abdomen. 3. Lung base opacities, similar. Electronically Signed: Raven Matthew MD at 23:55 EDT , Chest X-Ray 09/16/22 15:15 IMPRESSION: The tip of the endotracheal tube is at the tracheal bifurcation. It should be pulled back approximately 2.2 cm cyst. Findings in keeping with bibasilar atelectasis superimposed on basilar scarring. Electronically Signed: Lamonte Gaona MD at 15:24 EDT , Physical Exam Const Constitutional Narrative: Patient currently is on the ventilator and lightly sedated, she does not appear to be in any distress HEENT head/scalp atraumatic Neck no JVD Resp normal respiratory effort, no retractions, no use of accessory muscles and clear to auscultation bilaterally Cardio regular rate, regular rhythm, S1 normal heart sound and S2 normal heart sound Cardio Narrative: Occasional PACs are noted Extremity no clubbing, cyanosis or edema Neuro Neuro Narrative: Patient is sedated on the ventilator at this time Psych Psych Narrative: Patient is sedated and on the ventilator at this time Assessment & Plan Assessment/Plan (1) Hypertension: QUALIFIERS: Hypertension type: essential hypertension Qualified Code(s): I10 - Essential (primary) hypertension PLAN: Plan 1. Colon carcinoma-status post open right hemicolectomy-I talked with general surgery about her care today, they stated they did not see any obvious spread of any tumor outside the colon. #2 large bowel obstruction secondary to colon tumor-again patient is postop right hemicolectomy #3 type 2 diabetes-patient is on sliding scale insulin at this time #4 morbid obesity-complicates care, management, recovery, and prognosis #5 hyperlipidemia-patient's statin is currently on hold #6 acute hypoxic respiratory failure following surgery-critical care is seeing patient, she remains on the ventilator at this time #7 iron deficiency anemia secondary to chronic GI blood loss from colon neoplasm-labs will be monitored Charges/Coding Visit Charges Inpatient E&M: 78988 Subs Hosp L2
[2022-09-16] MEDS: TITRATION PARAMETER CHANGE 1 EACH IV (16:52)
--- NOTE | 2022-09-16 17:30 | EKG12_ITS ---
Test Reason : AM EKG Blood Pressure : / mmHG Vent. Rate : 085 BPM Atrial Rate : 085 BPM P-R Int : 174 ms QRS Dur : 126 ms QT Int : 404 ms P-R-T Axes : 044 -43 045 degrees QTc Int : 480 ms Normal sinus rhythm Left axis deviation Right bundle branch block Abnormal ECG When compared with ECG of 09-SEP-2022 14:52, No significant change was found Confirmed by CARLOS CASTRO, DIAMOND ([id number]), web editor RANI SOTELO ([id number]) on 09/17/2022 2:39:02 P M Referred By: SAUL Confirmed By:MARY GONZALEZ MD
[2022-09-16] MEDS: Insulin Lispro 100 UNIT/ML INSULN.PEN SC (19:24)
[2022-09-16 19:46] LABS: Bedside Glucose 188 mg/dL (74-106)
[2022-09-16] MEDS: Chlorhexidine 15 ML PO (20:39)
[2022-09-16] MEDS: CHLORHEXIDINE GLUC 2% CLOTH 1 EACH TOWELETTE TOPICAL (20:39)
[2022-09-16] MEDS: Propofol 10MG/Ml 1,000 MG/100 ML Bottle 13.3 MG CONT INF (22:58)
[2022-09-17] VITALS (30 sets, daily range): BP systolic 109–154; BP diastolic 43–78; PULSE 72–98; RESP 12–93; TEMP 36.4–36.8; O2SAT 92–98
[2022-09-17] MEDS: Insulin Lispro 100 UNIT/ML INSULN.PEN SC (00:38)
[2022-09-17] MEDS: Lactated Ringers 1,000 ML 100 ML IV ×3 (00:39→21:20)
[2022-09-17 01:01] LABS: Bedside Glucose 162 mg/dL (74-106)
[2022-09-17] MEDS: Propofol 10MG/Ml 1,000 MG/100 ML Bottle 13.3 MG CONT INF (03:55)
[2022-09-17 04:15] LABS: Absolute Lymphocyte Count 1.47 X10^3/uL (0.83-4.51); Absolute Neutrophil Count 8.9 X10^3/uL (2.0-7.7); Basophil# 0.02 X10^3/uL; Basophil% 0.2 % (0-1); Eosinophil# 0.11 X10^3/uL; Eosinophils% 0.9 % (0-5); Hematocrit 31.9 % (37-47); Hemoglobin 9.2 g/dL (12.0-15.0); Lymphocyte # 1.47 X10^3/ul (0.83-4.51); Lymphocyte % 12.6 % (19-41); Mean Corp Hgb Conc 28.8 g/dL (32-36); Mean Corpuscular Hgb 25.3 pg (27.0-32.0); Mean Corpuscular Volume 87.6 fL (81-99); Monocyte# 1.05 X10^3/uL; NRBC Flagged by Analyzer 0 % (0-5); Neutrophil # 8.94 X10^3/uL (2.7-7.7); POSITIVE MORPHOLOGY YES; Platelet Count 286 K/mm3 (150-450); RBC Distribution Width CV 20.4 % (11.6-14.6); Red Blood Count 3.64 M/mm3 (4.2-5.4); White Blood Count 11.6 K/mm3 (4.4-11.0)
[2022-09-17 04:16] LABS: Differential Indicated SCAN CRITERIA MET
[2022-09-17 04:30] LABS: Anion Gap 3 (5-15); BUN 11 mg/dL (7-18); BUN/Creat Ratio 17.1 RATIO (10-20); Calcium,Total 8.1 mg/dL (8.5-10.1); Chloride 107 mmol/L (98-107); Creatinine, Serum 0.64 mg/dL (0.55-1.02); EST Glomerular Filtration Rate 94 mL/min (>60); Est Glom Filt Rate - Afr Amer 114 mL/min (>60); Estimated Creatinine Clearance 37.45 ml/min; Glucose 140 mg/dL (74-106); Potassium 3.7 mmol/L (3.5-5.1); Sodium Level 142 mmol/L (136-145)
[2022-09-17 04:40] LABS: Anisocytosis 1+; Differential Comment SCANNED
[2022-09-17 04:41] LABS: Macrocytosis RARE; Microcytosis RARE; Smudge Cells RARE
[2022-09-17 06:16] LABS: Allen Test Positive; Base Excess 5 mmol/L (-2 to +2); Bicarbonate 29.5 mmol/L (22-26); Blood Gas Specimen Type ART; FI02 30; Mode CPAP/PS; O2 Delivery Device Adult Vent; PEEP 5; PO2 61 mmHG (75-100); PS 5; SITE L Radial; SO2 90 % (95-99); Total Carbon Dioxide 31 mmol/L; pCO2 48.1 mmHg (35-45)
[2022-09-17] MEDS: Nystatin Powder 15gm Bottle 1 APPLIC TOPICAL ×3 (06:34→21:19)
[2022-09-17] MEDS: Furosemide 40 MG/4 ML Vial IV (06:34)
[2022-09-17] MEDS: 0.9% Saline Lock 10 ML Syringe IV (06:35)
--- NOTE | 2022-09-17 07:15 | PN.CC_ITS ---
Assessment & Plan Assessment/Plan (1) Acute respiratory failure with hypoxia: (2) Morbid obesity: (3) Colonic mass: (4) Pleural effusion: PLAN: Plan RECOMMENDATIONS: 1. Challenge with Lasix 2. Likely proceed with extubation following Lasix 3. No need for additional antibiotics from my perspective 4. Wean supplemental oxygen as tolerated 5. Await pathology from surgical intervention 6. Initiation of p.o. intake per surgery IMPRESSIONS: 1. Acute hypoxic respiratory failure following surgery Patient did have pleural effusion and what appears to be chronic hypercarbic respiratory failure prior to surgery. It is unclear if this is obesity hypoventilation as no ABG was obtained on room air. Patient with poor tidal volumes and increased AA gradient following surgery. Patient continues to have marginal tidal volumes, but ABG shows adequate compensation. Patient does have an increased AA gradient, so we will challenge with Lasix prior to extubation. No indication for antibiotics from a pulmonary standpoint. 2. Large bowel obstruction status post hemicolectomy postop day #1 Patient with partial colectomy on 09/16/2022. Patient currently n.p.o. with NG in place. Defer to surgery on initiation of tube feeds. Anticipate leaving NG in place once patient is extubated. Patient with very poor bowel sounds at this time. 3. Pleural effusion Unclear etiology. Patient does not appear to have a thoracentesis previously. Pleural effusions do not appear to be significant enough to account for problem #1. Patient may require a CT of the chest to evaluate for associated masses. EF recently showed preserved ejection fraction. Patient may benefit from diuretics following extubation. 4. History of TIA/morbid obesity/advanced age/hyperlipidemia/type 2 diabetes mellitus/iron deficiency anemia Complicates care, management, recovery and prognosis. Cover with sliding scale insulin for now as patient is not on tube feeds. No indication for transfusion at this time. Once patient is extubated, evaluation for possible obesity hypoventilation following cessation of narcotics would be appropriate. TIME: 32 minutes critical care time spent addressing patient's acute hypoxic respiratory failure, large bowel obstruction, pleural effusion, review of all data and collaboration with care team Subjective Subjective Patient did okay overnight. Patient has had some lower tidal volumes on spo ntaneous breathing trial, but ABG was okay. There was some increased AA gradient. Patient states pain is well controlled. Patient is nodding appropriately to questions. Objective Data Objective Data Endotracheal tube has been withdrawn 2 cm since the last chest x-ray Vital Signs: Vital Signs Temp Pulse Resp BP Pulse Ox O2 Del Method O2 Flow Rate 36.7 C 91 36 H 150/59 H 93 Mechanical Ventilator 3 09/17/22 04:00 09/17/22 07:09 09/17/22 07:09 09/17/22 06:00 09/17/22 07:09 09/17/22 06:00 09/15/22 23:30 FiO2 30 09/17/22 06:00 Oxygen Flow Rate (L/min) 3 Oxygen Delivery Method Mechanical Ventilator Weight: 118.2 kg Body Mass Index (BMI) 41.8 Intake & Output: Intake and Output for Last 24 Hours 09/15/22 09/16/22 09/17/22 23:59 23:59 23:59 Intake Total 2394.02 / 2474.82 1194.00 / 1194.00 Output Total 0 / 0 325 / 425 950 / 950 Balance 2069.02 / 2049.82 244.00 / 244.00 Medical Nutrition Assessment Dietitian: Malnutrition Criteria Met Start: 09/16/22 14:35 Freq: Status: Active Protocol: Document 09/16/22 14:35 RMA (Rec: 09/16/22 14:36 RMA [id number]) Nutrition Malnutrition Evidence of Malnutrition Exists Yes Malnutrition (severe): Acute Illness/Injury Evidenced By Suboptimal Energy Intake ( Severe),Weight Loss (Severe) Intake Problem Inadequate Oral Intake Etiology related to altered GI function /obstruction Signs/Symptoms as evidenced by NPO Status Active Problem Clinical Problem Acute Disease or Injury Related Malnutrition Etiology Severe protein-calorie malnutrition in the context of acute disease related to altered GI function and inadequate oral intake Signs/Symptoms as evidenced by currently NPO, poor PO x past 1-2 weeks meeting less than 50% estimated nutrition needs and weight loss~5-6% x past 1-2 weeks Status Active Problem Recommendation Dietitian Recommendations/Changes Recommend PO as tolerated to Transitional diet with goal of Carbohydrate-Controlled diet as medically able to be advanced. ONS as PO diet advanced for extra protein. Consider parenteral nutrition support if unable to advance diet in 48 hours. Lab / Micro Data Attestation: I reviewed the patient's lab results. Result Diagrams: 09/17/22 04:00 09/17/22 04:00 Labs: Laboratory Results - last 24 hr 09/16/22 05:30: Hemoglobin A1c 8.4 H 09/16/22 05:30: Total Creatine Kinase 37, Triglycerides 67 09/16/22 12:00: POC Glucose 74 09/16/22 12:05: Blood Type O POSITIVE, Antibody Screen NEGATIVE, Crossmatch See Detail 09/16/22 13:09: POC Glucose 134 H 09/16/22 19:22: POC Glucose 188 H 09/17/22 00:37: POC Glucose 162 H 09/17/22 04:00: WBC 11.6 H, RBC 3.64 L, Hgb 9.2 L, Hct 31.9 L, MCV 87.6, MCH 25.3 L, MCHC 28.8 L, RDW Std Deviation 63.0 H, RDW Coeff of Naren 20.4 H, Plt Count 286, MPV 11.0, Immature Gran % (Auto) 0.300, Neut % (Auto) 77.0 H, Lymph % (Auto) 12.6 L, [place] % (Auto) 9.0, Eos % (Auto) 0.9, Baso % (Auto) 0.2, Absolute Neuts (auto) 8.9 H, Absolute Lymphs (auto) 1.47, Nucleated RBC % 0, Differential Comment SCANNED, Smudge Cells RARE, Anisocytosis 1+, Microcytosis RARE, Macrocytosis RARE 09/17/22 04:00: Sodium 142, Potassium 3.7, Chloride 107, Carbon Dioxide 32.0, Anion Gap 3 L, BUN 11, Creatinine 0.64, Estim Creat Clear Calc 37.45, Est GFR (MDRD) Af Amer 114, Est GFR (MDRD) Non-Af 94, BUN/Creatinine Ratio 17.1, Glucose 140 H, Calcium 8.1 L ABG Data ABG results: ABG 09/16/22 09/17/22 15:05 06:07 Specimen Type ART ART Sample Site L Radial L Radial pH 7.38 7.40 Bicarbonate Actual 30.4 H 29.5 H Total CO2 32 31 Base Excess 5 H 5 H O2 Saturation 92 L 90 L O2 % 40 30 ABG pCO2 51.0 H 48.1 H ABG pO2 65 L 61 L Ananda Test Positive Positive Respiration Rate 12 O2 Delivery Device Adult Vent Adult Vent Vent Mode AC CPAP/PS Tidal Volume 400 POC PEEP 5 5 POC Pressure Suppt 5 Attestation: I personally reviewed and interpreted this ABG as follows: (Compensated chronic respiratory acidosis with increased AA gradient) Radiography Diagnostic Testing: Radiology Impression Chest X-Ray 09/16/22 15:15 IMPRESSION: The tip of the endotracheal tube is at the tracheal bifurcation. It should be pulled back approximately 2.2 cm cyst. Findings in keeping with bibasilar atelectasis superimposed on basilar scarring. Electronically Signed: Lamonte Gaona MD at 15:24 EDT , Physical Exam Const alert Constitutional Narrative: Morbidly obese. General Appearance: cooperative and patient mechanically ventilated HEENT normocephalic Eyes PERRL and EOMs intact bilaterally Neck supple, no JVD and no carotid bruits Resp normal air movement and clear to auscultation bilaterally Resp Narrative: Fair effort. Auscultation: Negative for rales, rhonchi or wheezes Cardio regular rate, regular rhythm, S1 normal heart sound, S2 normal heart sound, no m urmurs, no rub and no gallops GI soft to palpation GI Narrative: Decreased bowel sounds noted. No flatus reported. Extremity normal capillary refill General Extremity: edema Skin no rashes or lesions noted Skin Narrative: Incision is clean, dry and intact General Skin Exam: no breakdown Psych Mood & Affect: anxious Charges/Coding Procedures Hospitalists Procedures: 72146 Critial Care 1st Hr
[2022-09-17] MEDS: Chlorhexidine 15 ML PO (08:14)
[2022-09-17] MEDS: Enoxaparin 40 MG/0.4 ML Syringe SC (08:15)
--- NOTE | 2022-09-17 08:43 | PCM.PN.SRG ---
Objective Data Objective Data Vital Signs: Vital Signs Temp Pulse Resp BP Pulse Ox O2 Del Method O2 Flow Rate 97.5 F L 88 21 H 136/78 H 96 Nasal Cannula 3 09/17/22 08:00 09/17/22 08:00 09/17/22 08:00 09/17/22 08:00 09/17/22 08:00 09/17/22 08:00 09/17/22 08:00 FiO2 30 09/17/22 07:00 Oxygen Flow Rate (L/min) 3 Oxygen Delivery Method Nasal Cannula Weight: 260 lb 9.382 oz Body Mass Index (BMI) 41.8 Intake & Output: Intake and Output for Last 24 Hours 09/15/22 09/16/22 09/17/22 23:59 23:59 23:59 Intake Total 2394.02 / 2474.82 1194.00 / 1194.00 Output Total 0 / 0 325 / 425 950 / 950 Balance 2069.02 / 2049.82 244.00 / 244.00 Medical Nutrition Assessment Dietitian: Malnutrition Criteria Met Start: 09/16/22 14:35 Freq: Status: Active Protocol: Document 09/16/22 14:35 RMA (Rec: 09/16/22 14:36 RMA [id number]) Nutrition Malnutrition Evidence of Malnutrition Exists Yes Malnutrition (severe): Acute Illness/Injury Evidenced By Suboptimal Energy Intake ( Severe),Weight Loss (Severe) Intake Problem Inadequate Oral Intake Etiology related to altered GI function /obstruction Signs/Symptoms as evidenced by NPO Status Active Problem Clinical Problem Acute Disease or Injury Related Malnutrition Etiology Severe protein-calorie malnutrition in the context of acute disease related to altered GI function and inadequate oral intake Signs/Symptoms as evidenced by currently NPO, poor PO x past 1-2 weeks meeting less than 50% estimated nutrition needs and weight loss~5-6% x past 1-2 weeks Status Active Problem Recommendation Dietitian Recommendations/Changes Recommend PO as tolerated to Transitional diet with goal of Carbohydrate-Controlled diet as medically able to be advanced. ONS as PO diet advanced for extra protein. Consider parenteral nutrition support if unable to advance diet in 48 hours. Lab / Micro Data Result Diagrams: 09/17/22 04:00 09/17/22 04:00 Labs: Laboratory Results - last 24 hr 09/16/22 05:30: Total Creatine Kinase 37, Triglycerides 67 09/16/22 12:00: POC Glucose 74 09/16/22 12:05: Blood Type O POSITIVE, Antibody Screen NEGATIVE, Crossmatch See Detail 09/16/22 13:09: POC Glucose 134 H 09/16/22 19:22: POC Glucose 188 H 09/17/22 00:37: POC Glucose 162 H 09/17/22 04:00: WBC 11.6 H, RBC 3.64 L, Hgb 9.2 L, Hct 31.9 L, MCV 87.6, MCH 25.3 L, MCHC 28.8 L, RDW Std Deviation 63.0 H, RDW Coeff of Naren 20.4 H, Plt Count 286, MPV 11.0, Immature Gran % (Auto) 0.300, Neut % (Auto) 77.0 H, Lymph % (Auto) 12.6 L, [place] % (Auto) 9.0, Eos % (Auto) 0.9, Baso % (Auto) 0.2, Absolute Neuts (auto) 8.9 H, Absolute Lymphs (auto) 1.47, Nucleated RBC % 0, Differential Comment SCANNED, Smudge Cells RARE, Anisocytosis 1+, Microcytosis RARE, Macrocytosis RARE 09/17/22 04:00: Sodium 142, Potassium 3.7, Chloride 107, Carbon Dioxide 32.0, Anion Gap 3 L, BUN 11, Creatinine 0.64, Estim Creat Clear Calc 37.45, Est GFR (MDRD) Af Amer 114, Est GFR (MDRD) Non-Af 94, BUN/Creatinine Ratio 17.1, Glucose 140 H, Calcium 8.1 L ABG Data ABG results: ABG 09/16/22 09/17/22 15:05 06:07 Specimen Type ART ART Sample Site L Radial L Radial pH 7.38 7.40 Bicarbonate Actual 30.4 H 29.5 H Total CO2 32 31 Base Excess 5 H 5 H O2 Saturation 92 L 90 L O2 % 40 30 ABG pCO2 51.0 H 48.1 H ABG pO2 65 L 61 L Ananda Test Positive Positive Respiration Rate 12 O2 Delivery Device Adult Vent Adult Vent Vent Mode AC CPAP/PS Tidal Volume 400 POC PEEP 5 5 POC Pressure Suppt 5 Radiography Diagnostic Testing: Radiology Impression Chest X-Ray 09/16/22 15:15 IMPRESSION: The tip of the endotracheal tube is at the tracheal bifurcation. It should be pulled back approximately 2.2 cm cyst. Findings in keeping with bibasilar atelectasis superimposed on basilar scarring. Electronically Signed: Lamonte Gaona MD at 15:24 EDT , Assessment & Plan Assessment/Plan (1) S/P right hemicolectomy: (2) Colonic mass: (3) Acute respiratory failure with hypoxia: PLAN: Plan Patient was extubated this morning. NG had very little out 100 since midnight?that was DC'd. Await bowel function okay for sparing ice chips/sips of water. Out of bed to chair Await pathology likely cancer Deanna Rivera M.D. Pager: [phone] [facility] [address] [place] [address], [facility], [address] [place] [address] Office: [phone]
[2022-09-17] MEDS: Morphine 4 MG/ML Syringe IV ×2 (09:11→12:50)
[2022-09-17 12:05] LABS: Bedside Glucose 135 mg/dL (74-106)
--- NOTE | 2022-09-17 16:21 | PCM.PN.HOSP ---
Subjective Subjective Seen and examined today, she was extubated and is on nasal cannula oxygen. I talked briefly with her daughter who was in the room at the time my examination. Patient has no complaints of any shortness of breath or chest discomfort. Objective Data Objective Data Vital Signs: Vital Signs Temp Pulse Resp BP Pulse Ox O2 Del Method O2 Flow Rate 97.9 F 87 21 H 125/51 H 95 Nasal Cannula 2 09/17/22 14:00 09/17/22 16:00 09/17/22 16:00 09/17/22 16:00 09/17/22 16:00 09/17/22 16:00 09/17/22 16:00 FiO2 30 09/17/22 07:00 Oxygen Flow Rate (L/min) 2 Oxygen Delivery Method Nasal Cannula Weight: 118.2 kg Body Mass Index (BMI) 41.8 Intake & Output: Intake and Output for Last 24 Hours 09/15/22 09/16/22 09/17/22 23:59 23:59 23:59 Intake Total 2394.02 / 2474.82 2294.00 / 2294.00 Output Total 0 / 0 325 / 425 1800 / 1800 Balance 2069.02 / 2049.82 494.00 / 494.00 Medical Nutrition Assessment Dietitian: Malnutrition Criteria Met Start: 09/16/22 14:35 Freq: Status: Active Protocol: Document 09/16/22 14:35 RMA (Rec: 09/16/22 14:36 RMA [id number]) Nutrition Malnutrition Evidence of Malnutrition Exists Yes Malnutrition (severe): Acute Illness/Injury Evidenced By Suboptimal Energy Intake ( Severe),Weight Loss (Severe) Intake Problem Inadequate Oral Intake Etiology related to altered GI function /obstruction Signs/Symptoms as evidenced by NPO Status Active Problem Clinical Problem Acute Disease or Injury Related Malnutrition Etiology Severe protein-calorie malnutrition in the context of acute disease related to altered GI function and inadequate oral intake Signs/Symptoms as evidenced by currently NPO, poor PO x past 1-2 weeks meeting less than 50% estimated nutrition needs and weight loss~5-6% x past 1-2 weeks Status Active Problem Recommendation Dietitian Recommendations/Changes Recommend PO as tolerated to Transitional diet with goal of Carbohydrate-Controlled diet as medically able to be advanced. ONS as PO diet advanced for extra protein. Consider parenteral nutrition support if unable to advance diet in 48 hours. Lab / Micro Data Result Diagrams: 09/17/22 04:00 09/17/22 04:00 Labs: Laboratory Results - last 24 hr 09/16/22 05:30: Carcinoembryonic Ag 11.0 H 09/16/22 19:22: POC Glucose 188 H 09/17/22 00:37: POC Glucose 162 H 09/17/22 04:00: WBC 11.6 H, RBC 3.64 L, Hgb 9.2 L, Hct 31.9 L, MCV 87.6, MCH 25.3 L, MCHC 28.8 L, RDW Std Deviation 63.0 H, RDW Coeff of Naren 20.4 H, Plt Count 286, MPV 11.0, Immature Gran % (Auto) 0.300, Neut % (Auto) 77.0 H, Lymph % (Auto) 12.6 L, [place] % (Auto) 9.0, Eos % (Auto) 0.9, Baso % (Auto) 0.2, Absolute Neuts (auto) 8.9 H, Absolute Lymphs (auto) 1.47, Nucleated RBC % 0, Differential Comment SCANNED, Smudge Cells RARE, Anisocytosis 1+, Microcytosis RARE, Macrocytosis RARE 09/17/22 04:00: Sodium 142, Potassium 3.7, Chloride 107, Carbon Dioxide 32.0, Anion Gap 3 L, BUN 11, Creatinine 0.64, Estim Creat Clear Calc 37.45, Est GFR (MDRD) Af Amer 114, Est GFR (MDRD) Non-Af 94, BUN/Creatinine Ratio 17.1, Glucose 140 H, Calcium 8.1 L 09/17/22 11:46: POC Glucose 135 H ABG Data ABG results: ABG 09/17/22 06:07 Specimen Type ART Sample Site L Radial pH 7.40 Bicarbonate Actual 29.5 H Total CO2 31 Base Excess 5 H O2 Saturation 90 L O2 % 30 ABG pCO2 48.1 H ABG pO2 61 L Ananda Test Positive O2 Delivery Device Adult Vent Vent Mode CPAP/PS POC PEEP 5 POC Pressure Suppt 5 Physical Exam Const alert, oriented x3 and no apparent distress General Appearance: cooperative, well kempt and well developed Orientation / Consciousness: awake, oriented to person and oriented to place HEENT normocephalic, head/scalp atraumatic and moist oral mucous membranes Eyes PERRL, EOMs intact bilaterally and conjunctivae normal Neck supple, no JVD, thyroid normal and no carotid bruits General: trachea midline Resp normal respiratory effort, no retractions, no use of accessory muscles and clear to auscultation bilaterally Auscultation: Negative for rales, rhonchi or wheezes Cardio regular rate, regular rhythm, S1 normal heart sound, S2 normal heart sound, no murmurs, no rub and no gallops Cardio Narrative: Occasional PACs are noted Extremity normal to inspection and no clubbing, cyanosis or edema Skin no rashes or lesions noted General Skin Exam: no breakdown Neuro oriented x3, CN's II-XII intact bilaterally, no focal motor deficits and no sensory deficits noted Sensorium / Orientation: awake and alert Speech: speech normal Psych affect normal Assessment & Plan Assessment/Plan (1) S/P right hemicolectomy: (2) Hypertension: QUALIFIERS: Hypertension type: essential hypertension Qualified Code(s): I10 - Essential (primary) hypertension PLAN: Plan 1. Colon carcinoma-status post open right hemicolectomy, postop day #1, continue present care, patient remains medically stable #2 large bowel obstruction secondary to colon tumor-again patient is postop right hemicolectomy postop day 1 #3 type 2 diabetes-patient is on sliding scale insulin at this time #4 morbid obesity-complicates care, management, recovery, and prognosis #5 hyperlipidemia-patient's statin is currently on hold #6 acute hypoxic respiratory failure following surgery-patient is now extubated and is on nasal cannula O2 #7 iron deficiency anemia secondary to chronic GI blood loss from colon neoplasm-labs will be monitored Charges/Coding Visit Charges Inpatient E&M: 55953 Subs Hosp L2
[2022-09-17 17:15] LABS: Bedside Glucose 126 mg/dL (74-106)
[2022-09-18] VITALS (15 sets, daily range): BP systolic 114–167; BP diastolic 48–72; PULSE 80–89; RESP 17–22; TEMP 36.2–37; O2SAT 91–100
[2022-09-18 00:15] LABS: Bedside Glucose 129 mg/dL (74-106)
[2022-09-18 03:46] LABS: Bedside Glucose 136 mg/dL (74-106)
[2022-09-18 05:09] LABS: Absolute Lymphocyte Count 1.49 X10^3/uL (0.83-4.51); Absolute Neutrophil Count 9.1 X10^3/uL (2.0-7.7); Basophil# 0.03 X10^3/uL; Basophil% 0.2 % (0-1); Eosinophil# 0.34 X10^3/uL; Eosinophils% 2.8 % (0-5); Hematocrit 33.8 % (37-47); Hemoglobin 9.7 g/dL (12.0-15.0); Lymphocyte # 1.49 X10^3/ul (0.83-4.51); Lymphocyte % 12.3 % (19-41); Mean Corp Hgb Conc 28.7 g/dL (32-36); Mean Corpuscular Hgb 25.5 pg (27.0-32.0); Mean Corpuscular Volume 88.9 fL (81-99); Mean Platelet Vol. 10.9 fl (6.2-12.0); Monocyte# 1.12 X10^3/uL; Monocyte% 9.2 % (0-10); NRBC Flagged by Analyzer 0 % (0-5); Neutrophil # 9.09 X10^3/uL (2.7-7.7); Neutrophil % 75.2 % (47-70); POSITIVE MORPHOLOGY YES; Platelet Count 307 K/mm3 (150-450); RBC Distribution Width CV 20.4 % (11.6-14.6); RBC Distribution Width SD 64.5 fl (35.1-43.9); White Blood Count 12.1 K/mm3 (4.4-11.0)
[2022-09-18 05:10] LABS: Differential Indicated SCAN CRITERIA MET
[2022-09-18] MEDS: Morphine 2 MG/ML Syringe IV ×2 (05:16→11:39)
[2022-09-18] MEDS: Ondansetron 4 MG/2 ML Vial IV (05:16)
[2022-09-18] MEDS: 0.9% Saline Lock 10 ML Syringe IV ×2 (05:16→11:39)
[2022-09-18] MEDS: Nystatin Powder 15gm Bottle 1 APPLIC TOPICAL (05:20)
[2022-09-18 05:26] LABS: ALB/GLOB Ratio 0.4 RATIO (0.9-2.4); AST(SGOT) 15 U/L (15-37); Alanine Aminotransfer ALT/SGPT 11 U/L (13-56); Albumin, Serum 1.6 g/dL (3.2-5.0); Alkaline Phosphatase 52 U/L (45-117); Anion Gap 3 (5-15); BUN 12 mg/dL (7-18); BUN/Creat Ratio 20.5 RATIO (10-20); Calcium,Total 8.4 mg/dL (8.5-10.1); Chloride 105 mmol/L (98-107); Creatinine, Serum 0.59 mg/dL (0.55-1.02); EST Glomerular Filtration Rate 105 mL/min (>60); Est Glom Filt Rate - Afr Amer 126 mL/min (>60); Estimated Creatinine Clearance 37.45 ml/min; Globulin 4.2 g/dL (2.2-4.2); Glucose 125 mg/dL (74-106); Potassium 3.8 mmol/L (3.5-5.1); Protein, Total 5.8 g/dL (6.4-8.2); Sodium Level 142 mmol/L (136-145)
[2022-09-18 05:31] LABS: Anisocytosis 1+; Differential Comment SCANNED; Hypochromasia 1+; Macrocytosis RARE; Microcytosis RARE
--- NOTE | 2022-09-18 07:38 | PN.CC_ITS ---
Assessment & Plan Assessment/Plan (1) Acute respiratory failure with hypoxia: (2) Morbid obesity: (3) Colonic mass: (4) Pleural effusion: PLAN: Plan RECOMMENDATIONS: 1. NPO pending surgery approval 2. Out of bed as tolerated 3. ok to leave the ICU 4. May need nocturnal oxygen given lack of interest in addressing presumed EZEKIEL 5. Work-up for obesity hypoventilation once patient is off of narcotics IMPRESSIONS: 1. Acute hypoxic respiratory failure following surgery Patient did have pleural effusion and what appears to be chronic hypercarbic respiratory failure prior to surgery. It is unclear if this is obesity hypoventilation as no ABG was obtained on room air. Patient with poor tidal volumes and increased AA gradient following surgery. Patient extubated and doing well. Okay to leave the intensive care unit from my perspective. Doubt patient requires a thoracentesis given size of pleural effusion. No indication for antibiotics from a pulmonary standpoint. 2. Large bowel obstruction status post hemicolectomy postop day #2 Patient with partial colectomy on 09/16/2022. Patient currently on ice chips sparingly. Defer to surgery on initiation of p.o. diet. Patient with very poor bowel sounds at this time. 3. Pleural effusion Unclear etiology. Patient does not appear to have a thoracentesis previously. Pleural effusions do not appear to be significant enough to account for problem #1. Patient may require a CT of the chest to evaluate for associated masses. EF recently showed preserved ejection fraction. No need for thoracentesis at this time. 4. History of TIA/morbid obesity/advanced age/hyperlipidemia/type 2 diabetes mellitus/iron deficiency anemia Complicates care, management, recovery and prognosis. Cover with sliding scale insulin for now as patient is not on tube feeds. No indication for transfusion at this time. Once patient is extubated, evaluation for possible obesity hypoventilation following cessation of narcotics would be appropriate. Subjective Subjective Patient did very well overnight. Patient did have intermittent desaturations that were thought to be secondary to apneic episodes from nursing. Patient states her pain is well controlled at this time. Objective Data Objective Data Vital Signs: Vital Signs Temp Pulse Resp BP Pulse Ox O2 Del Method O2 Flow Rate 36.8 C 86 21 H 156/59 H 98 Nasal Cannula 4 09/18/22 04:00 09/18/22 07:00 09/18/22 07:00 09/18/22 07:00 09/18/22 07:37 09/18/22 07:37 09/18/22 07:37 FiO2 30 09/17/22 07:00 Oxygen Flow Rate (L/min) 4 Oxygen Delivery Method Nasal Cannula Weight: 118.2 kg Body Mass Index (BMI) 41.8 Intake & Output: Intake and Output for Last 24 Hours 09/16/22 09/17/22 09/18/22 23:59 23:59 23:59 Intake Total 2394.02 / 2474.82 3444.00 / 3444.00 1010 / 1010 Output Total 325 / 425 2200 / 2200 100 / 100 Balance 2069.02 / 2049.82 1244.00 / 1244.00 910 / 910 Medical Nutrition Assessment Dietitian: Malnutrition Criteria Met Start: 09/16/22 14:35 Freq: Status: Active Protocol: Document 09/16/22 14:35 RMA (Rec: 09/16/22 14:36 RMA [id number]) Nutrition Malnutrition Evidence of Malnutrition Exists Yes Malnutrition (severe): Acute Illness/Injury Evidenced By Suboptimal Energy Intake ( Severe),Weight Loss (Severe) Intake Problem Inadequate Oral Intake Etiology related to altered GI function /obstruction Signs/Symptoms as evidenced by NPO Status Active Problem Clinical Problem Acute Disease or Injury Related Malnutrition Etiology Severe protein-calorie malnutrition in the context of acute disease related to altered GI function and inadequate oral intake Signs/Symptoms as evidenced by currently NPO, poor PO x past 1-2 weeks meeting less than 50% estimated nutrition needs and weight loss~5-6% x past 1-2 weeks Status Active Problem Recommendation Dietitian Recommendations/Changes Recommend PO as tolerated to Transitional diet with goal of Carbohydrate-Controlled diet as medically able to be advanced. ONS as PO diet advanced for extra protein. Consider parenteral nutrition support if unable to advance diet in 48 hours. Lab / Micro Data Attestation: I reviewed the patient's lab results. Result Diagrams: 09/18/22 05:00 09/18/22 05:00 Labs: Laboratory Results - last 24 hr 09/16/22 05:30: Carcinoembryonic Ag 11.0 H 09/17/22 06:39: POC Glucose 136 H 09/17/22 11:46: POC Glucose 135 H 09/17/22 16:54: POC Glucose 126 H 09/17/22 23:54: POC Glucose 129 H 09/18/22 05:00: WBC 12.1 H, RBC 3.80 L, Hgb 9.7 L, Hct 33.8 L, MCV 88.9, MCH 25.5 L, MCHC 28.7 L, RDW Std Deviation 64.5 H, RDW Coeff of Naren 20.4 H, Plt Count 307, MPV 10.9, Immature Gran % (Auto) 0.300, Neut % (Auto) 75.2 H, Lymph % (Auto) 12.3 L, [place] % (Auto) 9.2, Eos % (Auto) 2.8, Baso % (Auto) 0.2, Absolute Neuts (auto) 9.1 H, Absolute Lymphs (auto) 1.49, Nucleated RBC % 0, Differential Comment SCANNED, Hypochromasia 1+, Anisocytosis 1+, Microcytosis RARE, Macrocyt osis RARE 09/18/22 05:00: Sodium 142, Potassium 3.8, Chloride 105, Carbon Dioxide 34.0 H, Anion Gap 3 L, BUN 12, Creatinine 0.59, Estim Creat Clear Calc 37.45, Est GFR (MDRD) Af Amer 126, Est GFR (MDRD) Non-Af 105, BUN/Creatinine Ratio 20.5 H, Glucose 125 H, Calcium 8.4 L, Total Bilirubin 0.30, AST 15, ALT 11 L, Alkaline Phosphatase 52, Total Protein 5.8 L, Albumin 1.6 L, Globulin 4.2, Albumin/Globulin Ratio 0.4 L Physical Exam Const alert, oriented x3 and no apparent distress Constitutional Narrative: Morbidly obese. General Appearance: cooperative HEENT normocephalic, head/scalp atraumatic and moist oral mucous membranes HEENT Narrative: NG removed Eyes PERRL, EOMs intact bilaterally and conjunctivae normal Neck full ROM, supple, no JVD and no carotid bruits Chest inspection of chest normal Resp normal respiratory effort, normal air movement, no use of accessory muscles and clear to auscultation bilaterally Resp Narrative: Fair effort. Auscultation: diminished lung sounds; Negative for rales, rhonchi or wheezes Cardio regular rate, regular rhythm, S1 normal heart sound, S2 normal heart sound, no murmurs, no rub and no gallops GI normal to inspection, nondistended, normoactive bowel sounds and soft to palpation GI Narrative: Decreased bowel sounds noted. No flatus reported. no CVA tenderness Extremity normal capillary refill General Extremity: edema bilateral (Bilateral) lower extremity Details: trace Skin no rashes or lesions noted Skin Narrative: Incision is clean, dry and intact General Skin Exam: no breakdown Neuro no focal motor deficits Psych cooperative and affect normal Mood & Affect: flat affect Charges/Coding Visit Charges Inpatient E&M: 09198 Subs Hosp L3
[2022-09-18] MEDS: Enoxaparin 40 MG/0.4 ML Syringe SC (07:50)
--- NOTE | 2022-09-18 08:02 | PN.SURG_ITS ---
Subjective Subjective Patient is coughing up some yellowish sputum. Denies any flatus. Pain is controlled. Objective Data Objective Data Vital Signs: Vital Signs Temp Pulse Resp BP Pulse Ox O2 Del Method O2 Flow Rate 98.3 F 86 21 H 156/59 H 98 Nasal Cannula 4 09/18/22 04:00 09/18/22 07:00 09/18/22 07:00 09/18/22 07:00 09/18/22 07:37 09/18/22 07:37 09/18/22 07:37 FiO2 30 09/17/22 07:00 Oxygen Flow Rate (L/min) 4 Oxygen Delivery Method Nasal Cannula Weight: 260 lb 9.382 oz Body Mass Index (BMI) 41.8 Intake & Output: Intake and Output for Last 24 Hours 09/16/22 09/17/22 09/18/22 23:59 23:59 23:59 Intake Total 2394.02 / 2474.82 3444.00 / 3444.00 1010 / 1010 Output Total 325 / 425 2200 / 2200 100 / 100 Balance 2069.02 / 2049.82 1244.00 / 1244.00 910 / 910 Medical Nutrition Assessment Dietitian: Malnutrition Criteria Met Start: 09/16/22 14:35 Freq: Status: Active Protocol: Document 09/16/22 14:35 RMA (Rec: 09/16/22 14:36 RMA [id number]) Nutrition Malnutrition Evidence of Malnutrition Exists Yes Malnutrition (severe): Acute Illness/Injury Evidenced By Suboptimal Energy Intake ( Severe),Weight Loss (Severe) Intake Problem Inadequate Oral Intake Etiology related to altered GI function /obstruction Signs/Symptoms as evidenced by NPO Status Active Problem Clinical Problem Acute Disease or Injury Related Malnutrition Etiology Severe protein-calorie malnutrition in the context of acute disease related to altered GI function and inadequate oral intake Signs/Symptoms as evidenced by currently NPO, poor PO x past 1-2 weeks meeting less than 50% estimated nutrition needs and weight loss~5-6% x past 1-2 weeks Status Active Problem Recommendation Dietitian Recommendations/Changes Recommend PO as tolerated to Transitional diet with goal of Carbohydrate-Controlled diet as medically able to be advanced. ONS as PO diet advanced for extra protein. Consider parenteral nutrition support if unable to advance diet in 48 hours. Lab / Micro Data Result Diagrams: 09/18/22 05:00 09/18/22 05:00 Labs: Laboratory Results - last 24 hr 09/16/22 05:30: Carcinoembryonic Ag 11.0 H 09/17/22 06:39: POC Glucose 136 H 09/17/22 11:46: POC Glucose 135 H 09/17/22 16:54: POC Glucose 126 H 09/17/22 23:54: POC Glucose 129 H 09/18/22 05:00: WBC 12.1 H, RBC 3.80 L, Hgb 9.7 L, Hct 33.8 L, MCV 88.9, MCH 25.5 L, MCHC 28.7 L, RDW Std Deviation 64.5 H, RDW Coeff of Naren 20.4 H, Plt Count 307, MPV 10.9, Immature Gran % (Auto) 0.300, Neut % (Auto) 75.2 H, Lymph % (Auto) 12.3 L, [place] % (Auto) 9.2, Eos % (Auto) 2.8, Baso % (Auto) 0.2, Absolute Neuts (auto) 9.1 H, Absolute Lymphs (auto) 1.49, Nucleated RBC % 0, Differential Comment SCANNED, Hypochromasia 1+, Anisocytosis 1+, Microcytosis RARE, Macrocytosis RARE 09/18/22 05:00: Sodium 142, Potassium 3.8, Chloride 105, Carbon Dioxide 34.0 H, Anion Gap 3 L, BUN 12, Creatinine 0.59, Estim Creat Clear Calc 37.45, Est GFR (MDRD) Af Amer 126, Est GFR (MDRD) Non-Af 105, BUN/Creatinine Ratio 20.5 H, Glucose 125 H, Calcium 8.4 L, Total Bilirubin 0.30, AST 15, ALT 11 L, Alkaline Phosphatase 52, Total Protein 5.8 L, Albumin 1.6 L, Globulin 4.2, Albumin/Globulin Ratio 0.4 L Physical Exam Const alert, oriented x3 and no apparent distress Resp normal respiratory effort Cardio regular rate GI soft to palpation; Negative for non-distended Palpation: tender other (Near incision clean dry and intact with reena) Skin Skin Narrative: Yeast infection lower abdomen/groin?slightly improved Psych mental status grossly normal Assessment & Plan Assessment/Plan (1) S/P right hemicolectomy: (2) Colonic mass: (3) Acute respiratory failure with hypoxia: PLAN: Plan Patient is coughing up some yellow-colored sputum we will plan to get a sputum culture. Patient's white blood count is up to 12.1 question is has stayed with a possible pneumonia as patient is coughing up a bit of sputum we will get a culture and go from there. Patient's initial CT abdomen pelvis did call bilateral pleural effusions and pneumonia on admit initially thought the pneumonia was a bit of an overcall on the CAT scan. Await bowel function okay for sparing ice chips/sips of water. Out of bed to chair Await pathology likely cancer Deanna Rivera M.D. Pager: [phone] [facility] [address] [place] [address], [facility], [address] [place] [address] Office: [phone]
--- NOTE | 2022-09-18 09:30 | NURSING ---
report called to med-surg for transfer to room 308, transferred per chair with belongings
[2022-09-18 12:00] LABS: Bedside Glucose 128 mg/dL (74-106)
--- NOTE | 2022-09-18 12:34 | PCM.PN.HOSP ---
Subjective Subjective Patient was seen and examined today, she remains on nasal cannula oxygen, she has some expiratory wheezing today, I discussed her care with general surgery and pulmonary medicine. Patient's white blood cell count today was 12.1, she remains afebrile. Objective Data Objective Data Vital Signs: Vital Signs Temp Pulse Resp BP Pulse Ox O2 Del Method O2 Flow Rate 97.6 F L 85 18 146/58 H 97 Nasal Cannula 2 09/18/22 10:06 09/18/22 10:06 09/18/22 10:06 09/18/22 10:06 09/18/22 10:06 09/18/22 10:15 09/18/22 10:15 FiO2 30 09/17/22 07:00 Oxygen Flow Rate (L/min) 2 Oxygen Delivery Method Nasal Cannula Weight: 118.2 kg Body Mass Index (BMI) 41.8 Intake & Output: Intake and Output for Last 24 Hours 09/16/22 09/17/22 09/18/22 23:59 23:59 23:59 Intake Total 2394.02 / 2474.82 3444.00 / 3444.00 1010 / 1010 Output Total 325 / 425 2200 / 2200 100 / 100 Balance 2069.02 / 2049.82 1244.00 / 1244.00 910 / 910 Medical Nutrition Assessment Dietitian: Malnutrition Criteria Met Start: 09/16/22 14:35 Freq: Status: Active Protocol: Document 09/16/22 14:35 RMA (Rec: 09/16/22 14:36 RMA [id number]) Nutrition Malnutrition Evidence of Malnutrition Exists Yes Malnutrition (severe): Acute Illness/Injury Evidenced By Suboptimal Energy Intake ( Severe),Weight Loss (Severe) Intake Problem Inadequate Oral Intake Etiology related to altered GI function /obstruction Signs/Symptoms as evidenced by NPO Status Active Problem Clinical Problem Acute Disease or Injury Related Malnutrition Etiology Severe protein-calorie malnutrition in the context of acute disease related to altered GI function and inadequate oral intake Signs/Symptoms as evidenced by currently NPO, poor PO x past 1-2 weeks meeting less than 50% estimated nutrition needs and weight loss~5-6% x past 1-2 weeks Status Active Problem Recommendation Dietitian Recommendations/Changes Recommend PO as tolerated to Transitional diet with goal of Carbohydrate-Controlled diet as medically able to be advanced. ONS as PO diet advanced for extra protein. Consider parenteral nutrition support if unable to advance diet in 48 hours. Lab / Micro Data Result Diagrams: 09/18/22 05:00 09/18/22 05:00 Labs: Laboratory Results - last 24 hr 09/16/22 05:30: Carcinoembryonic Ag 11.0 H 09/17/22 06:39: POC Glucose 136 H 09/17/22 16:54: POC Glucose 126 H 09/17/22 23:54: POC Glucose 129 H 09/18/22 05:00: WBC 12.1 H, RBC 3.80 L, Hgb 9.7 L, Hct 33.8 L, MCV 88.9, MCH 25.5 L, MCHC 28.7 L, RDW Std Deviation 64.5 H, RDW Coeff of Naren 20.4 H, Plt Count 307, MPV 10.9, Immature Gran % (Auto) 0.300, Neut % (Auto) 75.2 H, Lymph % (Auto) 12.3 L, [place] % (Auto) 9.2, Eos % (Auto) 2.8, Baso % (Auto) 0.2, Absolute Neuts (auto) 9.1 H, Absolute Lymphs (auto) 1.49, Nucleated RBC % 0, Differential Comment SCANNED, Hypochromasia 1+, Anisocytosis 1+, Microcytosis RARE, Macrocytosis RARE 09/18/22 05:00: Sodium 142, Potassium 3.8, Chloride 105, Carbon Dioxide 34.0 H, Anion Gap 3 L, BUN 12, Creatinine 0.59, Estim Creat Clear Calc 37.45, Est GFR (MDRD) Af Amer 126, Est GFR (MDRD) Non-Af 105, BUN/Creatinine Ratio 20.5 H, Glucose 125 H, Calcium 8.4 L, Total Bilirubin 0.30, AST 15, ALT 11 L, Alkaline Phosphatase 52, Total Protein 5.8 L, Albumin 1.6 L, Globulin 4.2, Albumin/Globulin Ratio 0.4 L 09/18/22 11:31: POC Glucose 128 H Physical Exam Const alert, oriented x3 and no apparent distress Constitutional Narrative: Patient is morbidly obese General Appearance: cooperative, well kempt and well developed Orientation / Consciousness: awake, oriented to person, oriented to place and oriented to time HEENT normocephalic, head/scalp atraumatic and moist oral mucous membranes Eyes PERRL, EOMs intact bilaterally and conjunctivae normal Neck supple, no JVD and thyroid normal General: trachea midline Resp normal respiratory effort, no retractions and no use of accessory muscles Resp Narrative: Patient has scattered expiratory wheezes bilaterally Auscultation: wheezes; Negative for rales or rhonchi Cardio regular rate, regular rhythm, S1 normal heart sound, S2 normal heart sound, no murmurs, no rub and no gallops Extremity no clubbing, cyanosis or edema Skin no rashes or lesions noted General Skin Exam: no breakdown Neuro oriented x3, CN's II-XII intact bilaterally, moves all extremities, no focal motor deficits and no sensory deficits noted Sensorium / Orientation: awake and alert Speech: speech normal Psych affect normal Assessment & Plan Assessment/Plan (1) S/P right hemicolectomy: (2) Hypertension: QUALIFIERS: Hypertension type: essential hypertension Qualified Code(s): I10 - Essential (primary) hypertension PLAN: Plan 1. Colon carcinoma-status post open right hemicolectomy, postop day #2, continue present care, patient remains medically stable, patient will be admitted to [facility] #2 large bowel obstruction secondary to colon tumor-again patient is postop right hemicolectomy postop day 2 #3 type 2 diabetes-patient is on sliding scale insulin at this time #4 morbid obesity-complicates care, management, recovery, and prognosis #5 hyperlipidemia-patient's statin is currently on hold #6 acute hypoxic respiratory failure following surgery-patient is now extubated and is on nasal cannula O2 #7 iron deficiency anemia secondary to chronic GI blood loss from colon neoplasm-labs will be monitored Charges/Coding Visit Charges Inpatient E&M: 48070 Subs Hosp L2
[2022-09-18] MEDS: Nystatin/Triamcin Cream Tube 1 APPLIC TOPICAL ×2 (13:37→22:40)
[2022-09-18 16:46] LABS: Bedside Glucose 108 mg/dL (74-106)
[2022-09-18 23:25] LABS: Bedside Glucose 107 mg/dL (74-106)
[2022-09-19] VITALS (7 sets, daily range): BP systolic 138–142; BP diastolic 55–65; PULSE 85–99; RESP 18–20; TEMP 36.6–36.9; O2SAT 95–98
[2022-09-19] MEDS: 0.9% Saline Lock 10 ML Syringe IV ×2 (05:17→23:26)
[2022-09-19] MEDS: Nystatin/Triamcin Cream Tube 1 APPLIC TOPICAL ×3 (05:17→23:26)
[2022-09-19 06:35] LABS: Bedside Glucose 101 mg/dL (74-106)
[2022-09-19 06:52] LABS: Absolute Lymphocyte Count 1.35 X10^3/uL (0.83-4.51); Absolute Neutrophil Count 7.8 X10^3/uL (2.0-7.7); Basophil# 0.03 X10^3/uL; Basophil% 0.3 % (0-1); Eosinophil# 0.33 X10^3/uL; Eosinophils% 3.2 % (0-5); Hematocrit 33.2 % (37-47); Hemoglobin 9.4 g/dL (12.0-15.0); Lymphocyte # 1.35 X10^3/ul (0.83-4.51); Mean Corp Hgb Conc 28.3 g/dL (32-36); Mean Corpuscular Hgb 25.2 pg (27.0-32.0); Mean Platelet Vol. 11.3 fl (6.2-12.0); Monocyte# 0.83 X10^3/uL; NRBC Flagged by Analyzer 0 % (0-5); Neutrophil # 7.82 X10^3/uL (2.7-7.7); Neutrophil % 75.2 % (47-70); POSITIVE MORPHOLOGY YES; Platelet Count 360 K/mm3 (150-450); RBC Distribution Width CV 20.2 % (11.6-14.6); RBC Distribution Width SD 65.1 fl (35.1-43.9); Red Blood Count 3.73 M/mm3 (4.2-5.4); White Blood Count 10.4 K/mm3 (4.4-11.0)
--- NOTE | 2022-09-19 07:06 | PCM.PN.SRG ---
Subjective Subjective Patient's pain is controlled with pain meds. Patient has been ambulating some with a walker. No flatus Objective Data Objective Data Vital Signs: Vital Signs Temp Pulse Resp BP Pulse Ox O2 Del Method O2 Flow Rate 98.4 F 99 20 H 142/57 H 97 Nasal Cannula 2 09/19/22 04:35 09/19/22 04:35 09/19/22 04:35 09/19/22 04:35 09/19/22 04:35 09/19/22 04:45 09/19/22 04:45 FiO2 30 09/17/22 07:00 Oxygen Flow Rate (L/min) 2 Oxygen Delivery Method Nasal Cannula Weight: 260 lb 2.327 oz Body Mass Index (BMI) 41.8 Intake & Output: Intake and Output for Last 24 Hours 09/17/22 09/18/22 09/19/22 23:59 23:59 23:59 Intake Total 3444.00 / 3444.00 1010 / 1020 10 / 10 Output Total 2200 / 2200 100 / 300 200 / 200 Balance 1244.00 / 1244.00 910 / 720 -190 / -190 Medical Nutrition Assessment Dietitian: Malnutrition Criteria Met Start: 09/16/22 14:35 Freq: Status: Active Protocol: Document 09/16/22 14:35 RMA (Rec: 09/16/22 14:36 RMA [id number]) Nutrition Malnutrition Evidence of Malnutrition Exists Yes Malnutrition (severe): Acute Illness/Injury Evidenced By Suboptimal Energy Intake ( Severe),Weight Loss (Severe) Intake Problem Inadequate Oral Intake Etiology related to altered GI function /obstruction Signs/Symptoms as evidenced by NPO Status Active Problem Clinical Problem Acute Disease or Injury Related Malnutrition Etiology Severe protein-calorie malnutrition in the context of acute disease related to altered GI function and inadequate oral intake Signs/Symptoms as evidenced by currently NPO, poor PO x past 1-2 weeks meeting less than 50% estimated nutrition needs and weight loss~5-6% x past 1-2 weeks Status Active Problem Recommendation Dietitian Recommendations/Changes Recommend PO as tolerated to Transitional diet with goal of Carbohydrate-Controlled diet as medically able to be advanced. ONS as PO diet advanced for extra protein. Consider parenteral nutrition support if unable to advance diet in 48 hours. Lab / Micro Data Result Diagrams: 09/19/22 06:35 09/19/22 06:35 Labs: Laboratory Results - last 24 hr 10/29/22 11:31: POC Glucose 128 H 09/18/22 16:25: POC Glucose 108 H 09/18/22 22:58: POC Glucose 107 H 09/19/22 05:19: POC Glucose 101 Physical Exam Const alert, oriented x3 and no apparent distress Resp normal respiratory effort Cardio regular rate GI soft to palpation; Negative for non-distended Palpation: tender other (Near incision clean dry and intact with reena) Skin Skin Narrative: Yeast infection lower abdomen/groin?slightly improved Psych mental status grossly normal Assessment & Plan Assessment/Plan (1) S/P right hemicolectomy: (2) Colonic mass: (3) Acute respiratory failure with hypoxia: PLAN: Plan Await bowel function okay for sparing ice chips/sips of water. Out of bed to chair Await pathology likely cancer Deanna Rivera M.D. Pager: [phone] [facility] [address] [place] [address], [facility], [address] [place] [address] Office: [phone]
[2022-09-19 07:12] LABS: Differential Indicated SCAN CRITERIA MET
[2022-09-19 07:15] LABS: Anisocytosis 2+; Differential Comment SCANNED; Macrocytosis 1+; Microcytosis 1+
[2022-09-19 07:16] LABS: Anion Gap 5 (5-15); BUN 10 mg/dL (7-18); BUN/Creat Ratio 18.5 RATIO (10-20); Chloride 104 mmol/L (98-107); Creatinine, Serum 0.54 mg/dL (0.55-1.02); EST Glomerular Filtration Rate 115 mL/min (>60); Est Glom Filt Rate - Afr Amer 139 mL/min (>60); Estimated Creatinine Clearance 37.45 ml/min; Glucose 111 mg/dL (74-106); Potassium 3.9 mmol/L (3.5-5.1); Sodium Level 140 mmol/L (136-145)
--- NOTE | 2022-09-19 08:47 | PCM.PN.INT ---
Assessment & Plan Assessment/Plan (1) Acute respiratory failure with hypoxia: (2) Morbid obesity: (3) Colonic mass: (4) Pleural effusion: PLAN: Plan RECOMMENDATIONS: 1. NPO pending surgery approval 2. Out of bed as tolerated 3. Hemodynamically stable on minimal nasal cannula. Will sign off from a critical care perspective 4. May need nocturnal oxygen given lack of interest in addressing presumed EZEKIEL 5. Likely not necessary to follow-up as an outpatient as long as patient is refusing any noninvasive therapy IMPRESSIONS: 1. Acute hypoxic respiratory failure following surgery Patient did have pleural effusion and what appears to be chronic hypercarbic respiratory failure prior to surgery. It is unclear if this is obesity hypoventilation as no ABG was obtained on room air. Patient with poor tidal volumes and increased AA gradient following surgery. Patient extubated and doing well. Patient has been stable, so will sign off from a critical care perspective. From a pulmonary perspective, as long as patient is refusing any CPAP or BiPAP, treatment for obesity hypoventilation and sleep apnea would not be an option, she necessity of follow-up is questionable. Doubt patient requires a thoracentesis given size of pleural effusion. No indication for antibiotics from a pulmonary standpoint. 2. Large bowel obstruction status post hemicolectomy postop day #3 Patient with partial colectomy on 09/16/2022. Patient currently on ice chips sparingly. Defer to surgery on initiation of p.o. diet. Patient with very poor bowel sounds at this time. 3. Pleural effusion Unclear etiology. Patient does not appear to have a thoracentesis previously. Pleural effusions do not appear to be significant enough to account for problem #1. Patient may require a CT of the chest to evaluate for associated masses. EF recently showed preserved ejection fraction. No need for thoracentesis at this time. 4. History of TIA/morbid obesity/advanced age/hyperlipidemia/type 2 diabetes mellitus/iron deficiency anemia Complicates care, management, recovery and prognosis. Cover with sliding scale insulin for now as patient is not on tube feeds. No indication for transfusion at this time. Evaluation for possible obesity hypoventilation following cessation of narcotics would be appropriate the patient is willing to use BiPAP as an outpatient. Subjective Subjective Patient did well overnight. No acute issues were reported. Patient is not reporting any flatus, but has been tolerating ice chips. Patient was placed on 2 L nasal cannula with sleep. Patient continues to refuse any sleep work-up Objective Data Objective Data Vital Signs: Vital Signs Temp Pulse Resp BP Pulse Ox O2 Del Method O2 Flow Rate 36.9 C 99 20 H 142/57 H 97 Nasal Cannula 2 09/19/22 04:35 09/19/22 04:35 09/19/22 04:35 09/19/22 04:35 09/19/22 04:35 09/19/22 04:45 09/19/22 04:45 FiO2 30 09/17/22 07:00 Oxygen Flow Rate (L/min) 2 Oxygen Delivery Method Nasal Cannula Weight: 118 kg Body Mass Index (BMI) 41.8 Intake & Output: Intake and Output for Last 24 Hours 09/17/22 09/18/22 09/19/22 23:59 23:59 23:59 Intake Total 3444.00 / 3444.00 1010 / 1020 Output Total 2200 / 2200 100 / 300 200 / 200 Balance 1244.00 / 1244.00 910 / 720 -190 / -190 Medical Nutrition Assessment Dietitian: Malnutrition Criteria Met Start: 09/16/22 14:35 Freq: Status: Active Protocol: Document 09/16/22 14:35 RMA (Rec: 09/16/22 14:36 RMA [id number]) Nutrition Malnutrition Evidence of Malnutrition Exists Yes Malnutrition (severe): Acute Illness/Injury Evidenced By Suboptimal Energy Intake ( Severe),Weight Loss (Severe) Intake Problem Inadequate Oral Intake Etiology related to altered GI function /obstruction Signs/Symptoms as evidenced by NPO Status Active Problem Clinical Problem Acute Disease or Injury Related Malnutrition Etiology Severe protein-calorie malnutrition in the context of acute disease related to altered GI function and inadequate oral intake Signs/Symptoms as evidenced by currently NPO, poor PO x past 1-2 weeks meeting less than 50% estimated nutrition needs and weight loss~5-6% x past 1-2 weeks Status Active Problem Recommendation Dietitian Recommendations/Changes Recommend PO as tolerated to Transitional diet with goal of Carbohydrate-Controlled diet as medically able to be advanced. ONS as PO diet advanced for extra protein. Consider parenteral nutrition support if unable to advance diet in 48 hours. Lab / Micro Data Attestation: I reviewed the patient's lab results. Result Diagrams: 09/19/22 06:35 09/19/22 06:35 Labs: Laboratory Results - last 24 hr 09/18/22 11:31: POC Glucose 128 H 09/18/22 16:25: POC Glucose 108 H 09/18/22 22:58: POC Glucose 107 H 09/19/22 05:19: POC Glucose 101 09/19/22 06:35: WBC 10.4, RBC 3.73 L, Hgb 9.4 L, Hct 33.2 L, MCV 89.0, MCH 25.2 L, MCHC 28.3 L, RDW Std Deviation 65.1 H, RDW Coeff of Naren 20.2 H, Plt Count 360, MPV 11.3, Immature Gran % (Auto) 0.300, Neut % (Auto) 75.2 H, Lymph % (Auto) 13.0 L, [place] % (Auto) 8.0, Eos % (Auto) 3.2, Baso % (Auto) 0.3, Absolute Neuts (auto) 7.8 H, Absolute Lymphs (auto) 1.35, Nucleated RBC % 0, Differential Comment SCANNED, Anisocytosis 2+, Microcytosis 1+, Macrocytosis 1+ 09/19/22 06:35: Sodium 140, Potassium 3.9, Chloride 104, Carbon Dioxide 31.0, Anion Gap 5, BUN 10, Creatinine 0.54 L, Estim Creat Clear Calc 37.45, Est GFR (MDRD) Af Amer 139, Est GFR (MDRD) Non-Af 115, BUN/Creatinine Ratio 18.5, Glucose 111 H, Calcium 9.0 Physical Exam Const alert, oriented x3 and no apparent distress Constitutional Narrative: Morbidly obese. General Appearance: cooperative HEENT normocephalic, head/scalp atraumatic and moist oral mucous membranes Eyes PERRL, EOMs intact bilaterally and conjunctivae normal Neck full ROM, supple, no JVD and no carotid bruits Chest inspection of chest normal Resp normal respiratory effort, normal air movement, no use of accessory muscles and clear to auscultation bilaterally Resp Narrative: Fair effort. Auscultation: diminished lung sounds; Negative for rales, rhonchi or wheezes Cardio regular rate, regular rhythm, S1 normal heart sound, S2 normal heart sound, no murmurs, no rub and no gallops GI normal to inspection, nondistended, normoactive bowel sounds and soft to palpation GI Narrative: Decreased bowel sounds noted. No flatus reported. no CVA tenderness Extremity normal capillary refill General Extremity: edema bilateral (Bilateral) lower extremity Details: trace Skin no rashes or lesions noted Skin Narrative: Incision is clean, dry and intact General Skin Exam: no breakdown Neuro no focal motor deficits Psych cooperative and affect normal Mood & Affect: anxious and flat affect Charges/Coding Visit Charges Inpatient E&M: 14730 Subs Hosp L2
[2022-09-19] MEDS: Enoxaparin 40 MG/0.4 ML Syringe SC (11:19)
--- NOTE | 2022-09-19 11:41 | PCM.PN.HOSP ---
Subjective Subjective Patient was seen and examined today, she has no complaints of any abdominal discomfort at this time, she is not passing flatus, she does have some hypoactive bowel sounds however. Talked briefly with general surgery about her care, they recommended continuing ice chips for now. Talk to her daughter who was in the room at the time of my examination today. Patient still requiring supplemental oxygen at a low flow rate. Objective Data Objective Data Vital Signs: Vital Signs Temp Pulse Resp BP Pulse Ox O2 Del Method O2 Flow Rate 98 F 85 18 140/60 H 96 Nasal Cannula 2 09/19/22 10:40 09/19/22 10:40 09/19/22 10:40 09/19/22 10:40 09/19/22 10:40 09/19/22 10:40 09/19/22 10:40 FiO2 30 09/17/22 07:00 Oxygen Flow Rate (L/min) 2 Oxygen Delivery Method Nasal Cannula Weight: 118 kg Body Mass Index (BMI) 41.8 Intake & Output: Intake and Output for Last 24 Hours 09/17/22 09/18/22 09/19/22 23:59 23:59 23:59 Intake Total 3444.00 / 3444.00 1010 / 1020 10 Output Total 2200 / 2200 100 / 300 200 / 200 Balance 1244.00 / 1244.00 910 / 720 -190 / -190 Medical Nutrition Assessment Dietitian: Malnutrition Criteria Met Start: 09/16/22 14:35 Freq: Status: Active Protocol: Document 09/16/22 14:35 RMA (Rec: 09/16/22 14:36 RMA [id number]) Nutrition Malnutrition Evidence of Malnutrition Exists Yes Malnutrition (severe): Acute Illness/Injury Evidenced By Suboptimal Energy Intake ( Severe),Weight Loss (Severe) Intake Problem Inadequate Oral Intake Etiology related to altered GI function /obstruction Signs/Symptoms as evidenced by NPO Status Active Problem Clinical Problem Acute Disease or Injury Related Malnutrition Etiology Severe protein-calorie malnutrition in the context of acute disease related to altered GI function and inadequate oral intake Signs/Symptoms as evidenced by currently NPO, poor PO x past 1-2 weeks meeting less than 50% estimated nutrition needs and weight loss~5-6% x past 1-2 weeks Status Active Problem Recommendation Dietitian Recommendations/Changes Recommend PO as tolerated to Transitional diet with goal of Carbohydrate-Controlled diet as medically able to be advanced. ONS as PO diet advanced for extra protein. Consider parenteral nutrition support if unable to advance diet in 48 hours. Lab / Micro Data Result Diagrams: 09/19/22 06:35 09/19/22 06:35 Labs: Laboratory Results - last 24 hr 09/18/22 11:31: POC Glucose 128 H 09/18/22 16:25: POC Glucose 108 H 09/18/22 22:58: POC Glucose 107 H 09/19/22 05:19: POC Glucose 101 09/19/22 06:35: WBC 10.4, RBC 3.73 L, Hgb 9.4 L, Hct 33.2 L, MCV 89.0, MCH 25.2 L, MCHC 28.3 L, RDW Std Deviation 65.1 H, RDW Coeff of Naren 20.2 H, Plt Count 360, MPV 11.3, Immature Gran % (Auto) 0.300, Neut % (Auto) 75.2 H, Lymph % (Auto) 13.0 L, [place] % (Auto) 8.0, Eos % (Auto) 3.2, Baso % (Auto) 0.3, Absolute Neuts (auto) 7.8 H, Absolute Lymphs (auto) 1.35, Nucleated RBC % 0, Differential Comment SCANNED, Anisocytosis 2+, Microcytosis 1+, Macrocytosis 1+ 09/19/22 06:35: Sodium 140, Potassium 3.9, Chloride 104, Carbon Dioxide 31.0, Anion Gap 5, BUN 10, Creatinine 0.54 L, Estim Creat Clear Calc 37.45, Est GFR (MDRD) Af Amer 139, Est GFR (MDRD) Non-Af 115, BUN/Creatinine Ratio 18.5, Glucose 111 H, Calcium 9.0 Physical Exam Narrative alert, oriented x3 and no apparent distress Constitutional Narrative: Patient is morbidly obese General Appearance: cooperative, well kempt and well developed Orientation / Consciousness: awake, oriented to person, oriented to place and oriented to time HEENT normocephalic, head/scalp atraumatic and moist oral mucous membranes Eyes PERRL, EOMs intact bilaterally and conjunctivae normal Neck supple, no JVD and thyroid normal General: trachea midline Resp normal respiratory effort, no retractions and no use of accessory muscles Resp Narrative: Auscultation: No rales rhonchi or wheezes Cardio regular rate, regular rhythm, S1 normal heart sound, S2 normal heart sound, no murmurs, no rub and no gallops Extremity no clubbing, cyanosis or edema Skin no rashes or lesions noted General Skin Exam: no breakdown Neuro oriented x3, CN's II-XII intact bilaterally, moves all extremities, no focal motor deficits and no sensory deficits noted Sensorium / Orientation: awake and alert Speech: speech normal Psych affect normal Assessment & Plan Assessment/Plan (1) S/P right hemicolectomy: (2) Hypertension: QUALIFIERS: Hypertension type: essential hypertension Qualified Code(s): I10 - Essential (primary) hypertension PLAN: Plan 1. Colon carcinoma-status post open right hemicolectomy, postop day #3, continue present care, patient remains medically stable #2 large bowel obstruction secondary to colon tumor-again patient is postop right hemicolectomy postop day 3 #3 type 2 diabetes-patient is on sliding scale insulin at this time #4 morbid obesity-complicates care, management, recovery, and prognosis #5 hyperlipidemia-patient's statin is currently on hold #6 acute hypoxic respiratory failure following surgery-patient is now on nasal cannula O2 #7 iron deficiency anemia secondary to chronic GI blood loss from colon neoplasm-labs will be monitored, hemoglobin today was 9.4 #8 acute debility-patient will need [facility] in a [facility] facility, she was originally in TCU and would like to return there. #9 severe protein and caloric malnutrition in the context of acute disease related to altered GI function and inadequate oral intake as evidenced by patient currently being n.p.o. and meeting less than 50% of estimated nutritional needs and weight loss 5 to 6% over the past 2 weeks-nutritional services recommended p.o. as tolerated with the transitional diet with a goal of carbohydrate controlled diet as medically able to be advanced, supplements were recommended as p.o. diet is advanced for extra protein. Charges/Coding Visit Charges Inpatient E&M: 72011 Subs Hosp L2
[2022-09-19 12:50] LABS: Bedside Glucose 120 mg/dL (74-106)
[2022-09-19] MEDS: HYDROcodone Bitartrate/Apap 5/325 Tablet PO (16:48)
[2022-09-19 20:31] LABS: Bedside Glucose 124 mg/dL (74-106)
[2022-09-20] VITALS (7 sets, daily range): BP systolic 128–158; BP diastolic 46–70; PULSE 88–91; RESP 16–20; TEMP 36.8–37.2; O2SAT 86–95
[2022-09-20 02:26] LABS: Bedside Glucose 104 mg/dL (74-106)
[2022-09-20] MEDS: Nystatin/Triamcin Cream Tube 1 APPLIC TOPICAL (06:41)
[2022-09-20 07:20] LABS: Bedside Glucose 110 mg/dL (74-106)
--- NOTE | 2022-09-20 07:46 | PN.HOSP_ITS ---
Subjective Subjective DOS: 09/20/2022 CC: Abdominal pain Overall does feel like she is slowly improving. Denies any nausea, think she might of passed gas once but denies any bowel movements. Tolerating ice chips okay. Denies chest pain or shortness of breath. Denies any other complaints this morning Objective Data Objective Data Vital Signs: Vital Signs Temp Pulse Resp BP Pulse Ox O2 Del Method O2 Flow Rate 98.2 F 88 20 H 128/46 H 95 Room Air 2 09/20/22 02:13 09/20/22 02:13 09/20/22 02:13 09/20/22 02:13 09/20/22 06:56 09/20/22 06:56 09/20/22 02:17 FiO2 30 09/17/22 07:00 Oxygen Flow Rate (L/min) 2 Oxygen Delivery Method Room Air Weight: 118.1 kg Body Mass Index (BMI) 41.8 Intake & Output: Intake and Output for Last 24 Hours 09/18/22 09/19/22 09/20/22 23:59 23:59 23:59 Intake Total 1010 / 1020 Output Total 100 / 300 750 / 750 525 / 525 Balance 910 / 720 -740 / -740 -525 / -525 Medical Nutrition Assessment Dietitian: Malnutrition Criteria Met Start: 09/16/22 14: 35 Freq: Status: Active Protocol: Document 09/16/22 14:35 RMA (Rec: 09/16/22 14:36 RMA [id number]) Nutrition Malnutrition Evidence of Malnutrition Exists Yes Malnutrition (severe): Acute Illness/Injury Evidenced By Suboptimal Energy Intake ( Severe),Weight Loss (Severe) Intake Problem Inadequate Oral Intake Etiology related to altered GI function /obstruction Signs/Symptoms as evidenced by NPO Status Active Problem Clinical Problem Acute Disease or Injury Related Malnutrition Etiology Severe protein-calorie malnutrition in the context of acute disease related to altered GI function and inadequate oral intake Signs/Symptoms as evidenced by currently NPO, poor PO x past 1-2 weeks meeting less than 50% estimated nutrition needs and weight loss~5-6% x past 1-2 weeks Status Active Problem Recommendation Dietitian Recommendations/Changes Recommend PO as tolerated to Transitional diet with goal of Carbohydrate-Controlled diet as medically able to be advanced. ONS as PO diet advanced for extra protein. Consider parenteral nutrition support if unable to advance diet in 48 hours. Lab / Micro Data Result Diagrams: 09/20/22 08:35 09/20/22 08:35 Labs: Laboratory Results - last 24 hr 09/16/22 12:05: Crossmatch See Detail 09/19/22 12:19: POC Glucose 120 H 09/19/22 17:54: POC Glucose 124 H 09/19/22 23:24: POC Glucose 104 09/20/22 06:39: POC Glucose 110 H Physical Exam Const alert and no apparent distress Constitutional Narrative: Oriented HEENT normocephalic and head/scalp atraumatic Eyes Eyes Narrative: EOM grossly intact, anicteric Neck supple Resp normal respiratory effort Resp Narrative: Difficult to auscultate secondary to body habitus, diminished at the bases Cardio regular rate and regular rhythm GI GI Narrative: Protuberant, very mild tender to palpation diffusely, no rebound, guarding, rigidity Extremity Extremity Narrative: SCDs in place Neuro moves all extremities Neuro Narrative: No overt focal deficits appreciated Psych Psych Narrative: Cooperative Assessment & Plan Assessment/Plan (1) Large bowel obstruction: (2) Colonic mass: (3) Body mass index 45.0-49.9, adult: (4) Iron deficiency anemia: PLAN: Plan 82-year-old female with history of diabetes type 2, microcytic anemia, and TIA who was admitted 09/15 with right upper quadrant abdominal pain. She had recently been discharged 09/10 after hospitalization for microcytic anemia and was transfused 2 units of packed red blood cells during that admission. Had seen Dr. Robert with [facility] the day prior to this admission and colonoscopy was planned but she got worse and presented to the hospital. In ED CT scan showed 55 x 39 mm apical core type lesion around the hepatic flexure of the colon causing obstruction. Dr. Rivera had been contacted in the emergency room and she was taken to surgery 09/16 for a open right hemicolectomy which he tolerated well and was taken to ICU intubated in stable condition. #Colonic obstruction secondary to colonic mass Had right hemicolectomy 09/16 Improving, on ice chips and n.p.o., further advancing diet per surgery recommendations Given still not taking p.o. we will continue to monitor with supportive care Likely to TCU once stable #Acute hypoxic respiratory failure following surgery Improving, ICU had been following but will now sign off On nasal cannula #Iron deficiency anemia secondary to chronic GI blood loss from colon neoplasm Monitor hemoglobin #Type 2 diabetes mellitus Sliding scale insulin #DVT ppx: Maria Esther Jordan MD Charges/Coding Visit Charges Inpatient E&M: 59772 Subs Hosp L2
--- NOTE | 2022-09-20 07:51 | WOUNDNOTE ---
Was consulted on patient for redness to abdominal folds and under bilateral breasts. patient had been using nystatin powder and then was switched to nystatin cream. nursing states the redness worsened with the cream. the orders are now back to the nystatin powder. there is redness noted. patient denies pain to sites. there is a large amount of cream noted to the abdominal folds. the cream was wiped out with soap and water. dried the folds well. nystatin powder is to be applied once up from pharmacy. will monitor. plan to continue with the powder at this time.
[2022-09-20 08:46] LABS: Absolute Lymphocyte Count 1.21 X10^3/uL (0.83-4.51); Absolute Neutrophil Count 4.4 X10^3/uL (2.0-7.7); Basophil# 0.01 X10^3/uL; Basophil% 0.1 % (0-1); Eosinophil# 0.25 X10^3/uL; Eosinophils% 3.7 % (0-5); Hematocrit 32.6 % (37-47); Hemoglobin 9.4 g/dL (12.0-15.0); Lymphocyte # 1.21 X10^3/ul (0.83-4.51); Lymphocyte % 17.9 % (19-41); Mean Corp Hgb Conc 28.8 g/dL (32-36); Mean Corpuscular Hgb 25.2 pg (27.0-32.0); Mean Corpuscular Volume 87.4 fL (81-99); Mean Platelet Vol. 10.8 fl (6.2-12.0); Monocyte# 0.81 X10^3/uL; NRBC Flagged by Analyzer 0 % (0-5); Neutrophil # 4.43 X10^3/uL (2.7-7.7); Neutrophil % 65.7 % (47-70); Platelet Count 356 K/mm3 (150-450); RBC Distribution Width CV 19.9 % (11.6-14.6); RBC Distribution Width SD 62.7 fl (35.1-43.9); Red Blood Count 3.73 M/mm3 (4.2-5.4); White Blood Count 6.8 K/mm3 (4.4-11.0)
[2022-09-20 09:09] LABS: Anion Gap 5 (5-15); BUN 9 mg/dL (7-18); BUN/Creat Ratio 21.2 RATIO (10-20); Calcium,Total 9.1 mg/dL (8.5-10.1); Chloride 103 mmol/L (98-107); Creatinine, Serum 0.42 mg/dL (0.55-1.02); EST Glomerular Filtration Rate 152 mL/min (>60); Est Glom Filt Rate - Afr Amer 184 mL/min (>60); Estimated Creatinine Clearance 37.45 ml/min; Glucose 112 mg/dL (74-106); Potassium 3.7 mmol/L (3.5-5.1); Sodium Level 141 mmol/L (136-145)
--- NOTE | 2022-09-20 09:37 | PCM.PN.SRG ---
Subjective Subjective Patient thinks she may have had a couple episodes of flatus. Denies any nausea. Patient did have some serosanguineous drainage from her wound this afternoon. Objective Data Objective Data Vital Signs: Vital Signs Temp Pulse Resp BP Pulse Ox O2 Del Method O2 Flow Rate 98.6 F 90 16 144/60 H 93 Nasal Cannula 2 09/20/22 08:13 09/20/22 08:13 09/20/22 08:13 09/20/22 08:13 09/20/22 08:13 09/20/22 08:17 09/20/22 08:17 FiO2 30 09/17/22 07:00 Oxygen Flow Rate (L/min) 2 Oxygen Delivery Method Nasal Cannula Weight: 260 lb 5.855 oz Body Mass Index (BMI) 41.8 Intake & Output: Intake and Output for Last 24 Hours 09/18/22 09/19/22 09/20/22 23:59 23:59 23:59 Intake Total 1010 / 1020 Output Total 100 / 300 750 / 750 525 / 525 Balance 910 / 720 -740 / -740 -525 / -525 Medical Nutrition Assessment Dietitian: Malnutrition Criteria Met Start: 09/16/22 14:35 Freq: Status: Active Protocol: Document 09/16/22 14:35 RMA (Rec: 09/16/22 14:36 RMA [id number]) Nutrition Malnutrition Evidence of Malnutrition Exists Yes Malnutrition (severe): Acute Illness/Injury Evidenced By Suboptimal Energy Intake ( Severe),Weight Loss (Severe) Intake Problem Inadequate Oral Intake Etiology related to altered GI function /obstruction Signs/Symptoms as evidenced by NPO Status Active Problem Clinical Problem Acute Disease or Injury Related Malnutrition Etiology Severe protein-calorie malnutrition in the context of acute disease related to altered GI function and inadequate oral intake Signs/Symptoms as evidenced by currently NPO, poor PO x past 1-2 weeks meeting less than 50% estimated nutrition needs and weight loss~5-6% x past 1-2 weeks Status Active Problem Recommendation Dietitian Recommendations/Changes Recommend PO as tolerated to Transitional diet with goal of Carbohydrate-Controlled diet as medically able to be advanced. ONS as PO diet advanced for extra protein. Consider parenteral nutrition support if unable to advance diet in 48 hours. Lab / Micro Data Result Diagrams: 09/20/22 08:35 09/20/22 08:35 Labs: Laboratory Results - last 24 hr 09/16/22 12:05: Crossmatch See Detail 09/19/22 12:19: POC Glucose 120 H 09/19/22 17:54: POC Glucose 124 H 09/19/22 23:24: POC Glucose 104 09/20/22 06:39: POC Glucose 110 H 09/20/22 08:35: WBC 6.8, RBC 3.73 L, Hgb 9.4 L, Hct 32.6 L, MCV 87.4, MCH 25.2 L, MCHC 28.8 L, RDW Std Deviation 62.7 H, RDW Coeff of Naren 19.9 H, Plt Count 356, MPV 10.8, Immature Gran % (Auto) 0.600, Neut % (Auto) 65.7, Lymph % (Auto) 17.9 L, [place] % (Auto) 12.0 H, Eos % (Auto) 3.7, Baso % (Auto) 0.1, Absolute Neuts (auto) 4.4, Absolute Lymphs (auto) 1.21, Nucleated RBC % 0 09/20/22 08:35: Sodium 141, Potassium 3.7, Chloride 103, Carbon Dioxide 33.0 H, Anion Gap 5, BUN 9, Creatinine 0.42 L, Estim Creat Clear Calc 37.45, Est GFR (MDRD) Af Amer 184, Est GFR (MDRD) Non-Af 152, BUN/Creatinine Ratio 21.2 H, Glucose 112 H, Calcium 9.1 Physical Exam Const alert, oriented x3 and no apparent distress Resp normal respiratory effort Cardio regular rate GI soft to palpation; Negative for non-distended GI Narrative: Patient did have some serosanguineous drainage from her mid incision. 1 staple was removed and additional serosanguineous fluid was drained. This was dressed with 4 x 4's and ABD pad. No signs of infection. Palpation: tender other (Near incision clean dry and intact with reena) Skin Skin Narrative: Yeast infection lower abdomen/groin?slightly improved Psych mental status grossly normal Assessment & Plan Assessment/Plan (1) S/P right hemicolectomy: (2) Colonic mass: (3) Acute respiratory failure with hypoxia: PLAN: Plan Await increased bowel function okay for sparing ice chips/sips of water. Abdominal incision dressing change every 6 hours today and as needed. Serosanguineous fluid likely seroma we will continue to monitor. Out of bed to chair Await pathology likely cancer Deanna Rivera M.D. Pager: [phone] [facility] [address] [place] [address], [address] [place] [address] Office: [phone]
[2022-09-20] MEDS: Enoxaparin 40 MG/0.4 ML Syringe SC (10:25)
--- NOTE | 2022-09-20 11:35 | CASEMGMT ---
Social Work MAYDA approached by pt daughter. Daughter had completed medicaid application give to pt by MAYDA Langley, while on TCU floor. MAYDA faxed medicaid application to [employer]. Informed Daughter to be looking for phone call from [facility]. DONA Matson
[2022-09-20 12:25] LABS: Bedside Glucose 126 mg/dL (74-106)
--- NOTE | 2022-09-20 12:56 | CHAPLAIN ---
Type of Pastoral Visit _x__ Initial Visit ___ Follow-up Visit ___ On-call Visit ___ General Patient Visit ___ Spiritual Assessment ___ Family Conference ___ Bereavement ___ Rapid Response ___ Code Blue ___ Other (describe below) Pastoral Care Referral From _x__ Patient ___ Family ___ Nurse ___ Physician ___ Flotation Tank Operator ___ Oil Well Perforator Operator ___ Other (describe below) Sacrament/Intervention _x__ Active listening ___ Anointing ___ Gnosticism ___ Bereavement ___ Communion ___ [employer] ___ ___ Life review _x__ Prayer ___ Reconciliation ___ Sacrament of Sick _x__ Supportive presence ___ Wedding ___ Other (describe below) Pastoral Comments patient was seen recently in a previous admission; pt is not able today to explain what happened to her but daughter is in the room and gives the details; pt affirms that whatever happens I am ready and I've got family there and family here, so I'll be with someone and it's okay; prayer and presence welcomed
[2022-09-20] MEDS: Nystatin Powder 15gm Bottle 1 APPLIC TOPICAL ×2 (14:43→21:15)
[2022-09-20 17:46] LABS: Bedside Glucose 95 mg/dL (74-106)
[2022-09-20] MEDS: 0.9% Saline Lock 10 ML Syringe IV (21:45)
[2022-09-20 22:06] LABS: Bedside Glucose 102 mg/dL (74-106)
[2022-09-21] VITALS (8 sets, daily range): BP systolic 123–157; BP diastolic 51–63; PULSE 85–92; RESP 16–24; TEMP 36.5–36.8; O2SAT 80–95
[2022-09-21] MEDS: HYDROcodone Bitartrate/Apap 5/325 Tablet PO ×3 (04:56→20:43)
[2022-09-21] MEDS: Nystatin Powder 15gm Bottle 1 APPLIC TOPICAL ×3 (05:33→21:59)
[2022-09-21 05:51] LABS: Absolute Lymphocyte Count 1.47 X10^3/uL (0.83-4.51); Absolute Neutrophil Count 4.7 X10^3/uL (2.0-7.7); Basophil# 0.02 X10^3/uL; Basophil% 0.3 % (0-1); Eosinophil# 0.35 X10^3/uL; Eosinophils% 4.7 % (0-5); Hematocrit 32.1 % (37-47); Hemoglobin 9.5 g/dL (12.0-15.0); Lymphocyte # 1.47 X10^3/ul (0.83-4.51); Lymphocyte % 19.5 % (19-41); Mean Corp Hgb Conc 29.6 g/dL (32-36); Mean Corpuscular Hgb 25.5 pg (27.0-32.0); Mean Corpuscular Volume 86.3 fL (81-99); Monocyte# 0.92 X10^3/uL; Monocyte% 12.2 % (0-10); NRBC Flagged by Analyzer 0 % (0-5); Neutrophil # 4.73 X10^3/uL (2.7-7.7); Neutrophil % 62.9 % (47-70); Platelet Count 364 K/mm3 (150-450); RBC Distribution Width CV 19.7 % (11.6-14.6); RBC Distribution Width SD 61.1 fl (35.1-43.9); Red Blood Count 3.72 M/mm3 (4.2-5.4); White Blood Count 7.5 K/mm3 (4.4-11.0)
[2022-09-21 06:29] LABS: ALB/GLOB Ratio 0.4 RATIO (0.9-2.4); AST(SGOT) 19 U/L (15-37); Alanine Aminotransfer ALT/SGPT 10 U/L (13-56); Albumin, Serum 1.7 g/dL (3.2-5.0); Alkaline Phosphatase 48 U/L (45-117); Anion Gap 6 (5-15); BUN 8 mg/dL (7-18); BUN/Creat Ratio 22.2 RATIO (10-20); Calcium,Total 8.9 mg/dL (8.5-10.1); Chloride 102 mmol/L (98-107); Creatinine, Serum 0.36 mg/dL (0.55-1.02); EST Glomerular Filtration Rate 183 mL/min (>60); Est Glom Filt Rate - Afr Amer 222 mL/min (>60); Estimated Creatinine Clearance 37.45 ml/min; Globulin 4.3 g/dL (2.2-4.2); Glucose 86 mg/dL (74-106); Potassium 3.6 mmol/L (3.5-5.1); Sodium Level 141 mmol/L (136-145)
--- NOTE | 2022-09-21 07:38 | PN.HOSP_ITS ---
Subjective Subjective DOS: 09/21/2022 CC: Abdominal pain Reports continued abdominal pain, though this has been fairly stable. Did keep her from sleeping well last night however. Still tolerating ice chips, she is unsure if she has had any kind of bowel movement though did previously report passing gas. Surgery is following. Denies nausea. Denies chest pain. Occasionally reports she will feel little bit short of breath, does not feel that way per se at this time. Did not voice any other complaints Objective Data Objective Data Vital Signs: Vital Signs Temp Pulse Resp BP Pulse Ox O2 Del Method O2 Flow Rate 98.2 F 89 20 H 155/63 H 95 Nasal Cannula 2 09/21/22 05:13 09/21/22 05:13 09/21/22 05:13 09/21/22 05:13 09/21/22 07:01 09/21/22 07:01 09/21/22 07:01 FiO2 30 09/17/22 07:00 Oxygen Flow Rate (L/min) 2 Oxygen Delivery Method Nasal Cannula Weight: 118.1 kg Body Mass Index (BMI) 41.8 Intake & Output: Intake and Output for Last 24 Hours 09/19/22 09/20/22 09/21/22 23:59 23:59 23:59 Intake Total 50 / 50 Output Total 750 / 750 525 / 875 550 / 550 Balance -740 / -740 -525 / -825 -500 / -500 Medical Nutrition Assessment Dietitian: Malnutrition Criteria Met Start: 09/16/22 14:35 Freq: Status: Active Protocol: Document 09/16/22 14:35 RMA (Rec: 09/16/22 14:36 RMA [id number]) Nutrition Malnutrition Evidence of Malnutrition Exists Yes Malnutrition (severe): Acute Illness/Injury Evidenced By Suboptimal Energy Intake ( Severe),Weight Loss (Severe) Intake Problem Inadequate Oral Intake Etiology related to altered GI function /obstruction Signs/Symptoms as evidenced by NPO Status Active Problem Clinical Problem Acute Disease or Injury Related Malnutrition Etiology Severe protein-calorie malnutrition in the context of acute disease related to altered GI function and inadequate oral intake Signs/Symptoms as evidenced by currently NPO, poor PO x past 1-2 weeks meeting less than 50% estimated nutrition needs and weight loss~5-6% x past 1-2 weeks Status Active Problem Recommendation Dietitian Recommendations/Changes Recommend PO as tolerated to Transitional diet with goal of Carbohydrate-Controlled diet as medically able to be advanced. ONS as PO diet advanced for extra protein. Consider parenteral nutrition support if unable to advance diet in 48 hours. Lab / Micro Data Result Diagrams: 09/21/22 04:46 09/21/22 04:46 Labs: Laboratory Results - last 24 hr 09/20/22 08:35: WBC 6.8, RBC 3.73 L, Hgb 9.4 L, Hct 32.6 L, MCV 87.4, MCH 25.2 L , MCHC 28.8 L, RDW Std Deviation 62.7 H, RDW Coeff of Naren 19.9 H, Plt Count 356, MPV 10.8, Immature Gran % (Auto) 0.600, Neut % (Auto) 65.7, Lymph % (Auto) 17.9 L, [place] % (Auto) 12.0 H, Eos % (Auto) 3.7, Baso % (Auto) 0.1, Absolute Neuts (auto) 4.4, Absolute Lymphs (auto) 1.21, Nucleated RBC % 0 09/20/22 08:35: Sodium 141, Potassium 3.7, Chloride 103, Carbon Dioxide 33.0 H, Anion Gap 5, BUN 9, Creatinine 0.42 L, Estim Creat Clear Calc 37.45, Est GFR (MDRD) Af Amer 184, Est GFR (MDRD) Non-Af 152, BUN/Creatinine Ratio 21.2 H, Glucose 112 H, Calcium 9.1 09/20/22 12:06: POC Glucose 126 H 09/20/22 17:26: POC Glucose 95 09/20/22 21:34: POC Glucose 102 09/21/22 04:46: WBC 7.5, RBC 3.72 L, Hgb 9.5 L, Hct 32.1 L, MCV 86.3, MCH 25.5 L , MCHC 29.6 L, RDW Std Deviation 61.1 H, RDW Coeff of Naren 19.7 H, Plt Count 364, MPV 11.0, Immature Gran % (Auto) 0.400, Neut % (Auto) 62.9, Lymph % (Auto) 19.5, Lewis % (Auto) 12.2 H, Eos % (Auto) 4.7, Baso % (Auto) 0.3, Absolute Neuts (auto) 4.7, Absolute Lymphs (auto) 1.47, Nucleated RBC % 0 09/21/22 04:46: Sodium 141, Potassium 3.6, Chloride 102, Carbon Dioxide 33.0 H, Anion Gap 6, BUN 8, Creatinine 0.36 L, Estim Creat Clear Calc 37.45, Est GFR (MDRD) Af Amer 222, Est GFR (MDRD) Non-Af 183, BUN/Creatinine Ratio 22.2 H, Glucose 86, Calcium 8.9, Total Bilirubin 0.50, AST 19, ALT 10 L, Alkaline P hosphatase 48, Total Protein 6.0 L, Albumin 1.7 L, Globulin 4.3 H, Albumin/Globulin Ratio 0.4 L Physical Exam Const alert and no apparent distress Constitutional Narrative: Oriented HEENT normocephalic and head/scalp atraumatic Eyes Eyes Narrative: EOM grossly intact, anicteric Neck supple Resp normal respiratory effort Resp Narrative: Difficult to auscultate secondary to body habitus, diminished at the bases Cardio regular rate and regular rhythm GI GI Narrative: Protuberant, very mild tender to palpation diffusely, no rebound, guarding, rigidity Extremity Extremity Narrative: SCDs in place Neuro moves all extremities Neuro Narrative: No overt focal deficits appreciated Psych Psych Narrative: Cooperative Assessment & Plan Assessment/Plan (1) Large bowel obstruction: (2) Colonic mass: (3) Body mass index 45.0-49.9, adult: (4) Iron deficiency anemia: PLAN: Plan 82-year-old female with history of diabetes type 2, microcytic anemia, and TIA who was admitted 09/15 with right upper quadrant abdominal pain. She had recently been discharged 09/10 after hospitalization for microcytic anemia and was transfused 2 units of packed red blood cells during that admission. Had seen Dr. Robert with GI the day prior to this admission and colonoscopy was planned but she got worse and presented to the hospital. In ED CT scan showed 55 x 39 mm apical core type lesion around the hepatic flexure of the colon causing obstruction. Dr. Rivera had been contacted in the emergency room and she was taken to surgery 09/16 for a open right hemicolectomy which he tolerated well and was taken to ICU intubated in stable condition. #Colonic obstruction secondary to colonic mass Had right hemicolectomy 09/16 Improving, on ice chips and n.p.o., further advancing diet per surgery rec ommendations Given still not taking p.o. we will continue to monitor with supportive care Likely to TCU once stable 09/21/2022: Continues to have some general abdominal pain. Surgery following. Still has only had ice chips, awaiting tolerating further p.o. prior to deeming stable for transfer to TCU. #Acute hypoxic respiratory failure following surgery Improving, ICU had been following but will now sign off On nasal cannula 09/21/2022: Has been fairly consistently 95% on 2 L. #Iron deficiency anemia secondary to chronic GI blood loss from colon mass, likely malignant Monitor hemoglobin #Type 2 diabetes mellitus Sliding scale insulin #DVT ppx: Maria Esther Jordan MD Charges/Coding Visit Charges Inpatient E&M: 05992 Subs Hosp L2
--- NOTE | 2022-09-21 08:33 | PN.SURG_ITS ---
Subjective Subjective Patient did have flatus. Patient still has some serous drainage from her midline incision. We will plan for wound VAC today. Objective Data Objective Data Vital Signs: Vital Signs Temp Pulse Resp BP Pulse Ox O2 Del Method O2 Flow Rate 98.2 F 89 20 H 155/63 H 95 Nasal Cannula 2 09/21/22 05:13 09/21/22 05:13 09/21/22 05:13 09/21/22 05:13 09/21/22 07:01 09/21/22 08:17 09/21/22 08:17 FiO2 30 09/17/22 07:00 Oxygen Flow Rate (L/min) 2 Oxygen Delivery Method Nasal Cannula Weight: 260 lb 5.855 oz Body Mass Index (BMI) 41.8 Intake & Output: Intake and Output for Last 24 Hours 09/19/22 09/20/22 09/21/22 23:59 23:59 23:59 Intake Total 50 / 50 Output Total 750 / 750 525 / 875 550 / 550 Balance -740 / -740 -525 / -825 -500 / -500 Medical Nutrition Assessment Dietitian: Malnutrition Criteria Met Start: 09/16/22 14:35 Freq: Status: Active Protocol: Document 09/16/22 14:35 RMA (Rec: 09/16/22 14:36 RMA [id number]) Nutrition Malnutrition Evidence of Malnutrition Exists Yes Malnutrition (severe): Acute Illness/Injury Evidenced By Suboptimal Energy Intake ( Severe),Weight Loss (Severe) Intake Problem Inadequate Oral Intake Etiology related to altered GI function /obstruction Signs/Symptoms as evidenced by NPO Status Active Problem Clinical Problem Acute Disease or Injury Related Malnutrition Etiology Severe protein-calorie malnutrition in the context of acute disease related to altered GI function and inadequate oral intake Signs/Symptoms as evidenced by currently NPO, poor PO x past 1-2 weeks meeting less than 50% estimated nutrition needs and weight loss~5-6% x past 1-2 weeks Status Active Problem Recommendation Dietitian Recommendations/Changes Recommend PO as tolerated to Transitional diet with goal of Carbohydrate-Controlled diet as medically able to be advanced. ONS as PO diet advanced for extra protein. Consider parenteral nutrition support if unable to advance diet in 48 hours. Lab / Micro Data Result Diagrams: 09/21/22 04:46 09/21/22 04:46 Labs: Laboratory Results - last 24 hr 09/20/22 08:35: WBC 6.8, RBC 3.73 L, Hgb 9.4 L, Hct 32.6 L, MCV 87.4, MCH 25.2 L , MCHC 28.8 L, RDW Std Deviation 62.7 H, RDW Coeff of Naren 19.9 H, Plt Count 356, MPV 10.8, Immature Gran % (Auto) 0.600, Neut % (Auto) 65.7, Lymph % (Auto) 17.9 L, [place] % (Auto) 12.0 H, Eos % (Auto) 3.7, Baso % (Auto) 0.1, Absolute Neuts (auto) 4.4, Absolute Lymphs (auto) 1.21, Nucleated RBC % 0 09/20/22 08:35: Sodium 141, Potassium 3.7, Chloride 103, Carbon Dioxide 33.0 H, Anion Gap 5, BUN 9, Creatinine 0.42 L, Estim Creat Clear Calc 37.45, Est GFR (MD RD) Af Amer 184, Est GFR (MDRD) Non-Af 152, BUN/Creatinine Ratio 21.2 H, Glucose 112 H, Calcium 9.1 09/20/22 12:06: POC Glucose 126 H 09/20/22 17:26: POC Glucose 95 09/20/22 21:34: POC Glucose 102 09/21/22 04:46: WBC 7.5, RBC 3.72 L, Hgb 9.5 L, Hct 32.1 L, MCV 86.3, MCH 25.5 L , MCHC 29.6 L, RDW Std Deviation 61.1 H, RDW Coeff of Naren 19.7 H, Plt Count 364, MPV 11.0, Immature Gran % (Auto) 0.400, Neut % (Auto) 62.9, Lymph % (Auto) 19.5, [place] % (Auto) 12.2 H, Eos % (Auto) 4.7, Baso % (Auto) 0.3, Absolute Neuts (auto) 4.7, Absolute Lymphs (auto) 1.47, Nucleated RBC % 0 09/21/22 04:46: Sodium 141, Potassium 3.6, Chloride 102, Carbon Dioxide 33.0 H, Anion Gap 6, BUN 8, Creatinine 0.36 L, Estim Creat Clear Calc 37.45, Est GFR (MDRD) Af Amer 222, Est GFR (MDRD) Non-Af 183, BUN/Creatinine Ratio 22.2 H, Glucose 86, Calcium 8.9, Total Bilirubin 0.50, AST 19, ALT 10 L, Alkaline Phosphatase 48, Total Protein 6.0 L, Albumin 1.7 L, Globulin 4.3 H, Albumin/Glob ulin Ratio 0.4 L Physical Exam Const alert, oriented x3 and no apparent distress Resp normal respiratory effort Cardio regular rate GI soft to palpation; Negative for non-distended GI Narrative: Continues to have some serous drainage from her midline incision. We will plan to place a wound VAC to see if this will help control the likely seroma fluid. Palpation: tender other (Near incision clean dry and intact with reena) Skin Skin Narrative: Yeast infection lower abdomen/groin?slightly improved Psych mental status grossly normal Assessment & Plan Assessment/Plan (1) S/P right hemicolectomy: (2) Colonic mass: (3) Acute respiratory failure with hypoxia: PLAN: Plan Patient is having flatus- will advance to clears. Will place a wound VAC over the incision to help control the fluid. If there is not much change in the fluid may consider getting a CAT scan in the future. Out of bed to chair Await pathology likely cancer PPI/Lovenox. Appreciate hospitalist assistance with medical management. Deanna Rivera M.D. Pager: [phone] [facility] [address] [place] [address], [facility], [address] [place] [address] Office: [phone]
[2022-09-21] MEDS: Enoxaparin 40 MG/0.4 ML Syringe SC (10:18)
[2022-09-21] MEDS: Insulin Lispro 100 UNIT/ML INSULN.PEN SC ×3 (12:12→21:59)
[2022-09-21 12:35] LABS: Bedside Glucose 160 mg/dL (74-106)
[2022-09-21 16:10] LABS: Bedside Glucose 94 mg/dL (74-106)
[2022-09-21 16:15] LABS: Bedside Glucose 169 mg/dL (74-106)
[2022-09-21] MEDS: 0.9% Saline Lock 10 ML Syringe IV (20:43)
[2022-09-21 22:20] LABS: Bedside Glucose 202 mg/dL (74-106)
--- NOTE | 2022-09-21 23:11 | NURSING ---
pt placed on O2 2L NC
[2022-09-22] VITALS (7 sets, daily range): BP systolic 120–131; BP diastolic 39–54; PULSE 70–86; RESP 18; TEMP 36.5–36.9; O2SAT 94–100
[2022-09-22 06:08] LABS: Absolute Lymphocyte Count 1.58 X10^3/uL (0.83-4.51); Absolute Neutrophil Count 4.3 X10^3/uL (2.0-7.7); Basophil# 0.03 X10^3/uL; Basophil% 0.4 % (0-1); Eosinophil# 0.36 X10^3/uL; Hematocrit 33.2 % (37-47); Hemoglobin 9.6 g/dL (12.0-15.0); Lymphocyte # 1.58 X10^3/ul (0.83-4.51); Lymphocyte % 21.8 % (19-41); Mean Corp Hgb Conc 28.9 g/dL (32-36); Mean Corpuscular Hgb 25.4 pg (27.0-32.0); Mean Corpuscular Volume 87.8 fL (81-99); Monocyte# 0.94 X10^3/uL; Monocyte% 12.9 % (0-10); NRBC Flagged by Analyzer 0 % (0-5); Neutrophil # 4.33 X10^3/uL (2.7-7.7); Neutrophil % 59.6 % (47-70); Platelet Count 382 K/mm3 (150-450); RBC Distribution Width CV 19.7 % (11.6-14.6); RBC Distribution Width SD 62.9 fl (35.1-43.9); Red Blood Count 3.78 M/mm3 (4.2-5.4); White Blood Count 7.3 K/mm3 (4.4-11.0)
[2022-09-22] MEDS: Nystatin Powder 15gm Bottle 1 APPLIC TOPICAL ×3 (06:34→22:30)
[2022-09-22] MEDS: Insulin Lispro 100 UNIT/ML INSULN.PEN SC ×2 (06:36→22:28)
[2022-09-22 06:39] LABS: Anion Gap 1 (5-15); BUN 8 mg/dL (7-18); BUN/Creat Ratio 14.1 RATIO (10-20); Calcium,Total 8.9 mg/dL (8.5-10.1); Chloride 103 mmol/L (98-107); Creatinine, Serum 0.57 mg/dL (0.55-1.02); EST Glomerular Filtration Rate 108 mL/min (>60); Est Glom Filt Rate - Afr Amer 131 mL/min (>60); Estimated Creatinine Clearance 37.45 ml/min; Glucose 180 mg/dL (74-106); Potassium 3.7 mmol/L (3.5-5.1); Sodium Level 141 mmol/L (136-145)
[2022-09-22 07:00] LABS: Bedside Glucose 158 mg/dL (74-106)
--- NOTE | 2022-09-22 07:56 | PN.HOSP_ITS ---
Subjective Subjective DOS: 09/22/2022 CC: Abdominal soreness Reports overall she does continue to feel better, still has some abdominal dinah n/soreness but this is improving over time 2. Has still not had a bowel movement per patient, but is tolerating clears well and denies any nausea. Said she is ready for something substantial and denies any other complaints. No chest pain or shortness of breath Objective Data Objective Data Vital Signs: Vital Signs Temp Pulse Resp BP Pulse Ox O2 Del Method O2 Flow Rate 97.7 F L 86 18 131/51 H 96 Nasal Cannula 2 09/22/22 03:00 09/22/22 03:00 09/22/22 03:00 09/22/22 03:00 09/22/22 06:48 09/22/22 06:48 09/22/22 06:48 FiO2 30 09/17/22 07:00 Oxygen Flow Rate (L/min) 2 Oxygen Delivery Method Nasal Cannula Weight: 114.5 kg Body Mass Index (BMI) 41.8 Intake & Output: Intake and Output for Last 24 Hours 09/20/22 09/21/22 09/22/22 23:59 23:59 23:59 Intake Total 50 / 450 800 / 800 Output Total 525 / 875 550 / 850 425 / 425 Balance -525 / -825 -500 / -400 375 / 375 Medical Nutrition Assessment Dietitian: Malnutrition Criteria Met Start: 09/16/22 14:35 Freq: Status: Active Protocol: Document 09/16/22 14:35 RMA (Rec: 09/16/22 14:36 RMA [id number]) Nutrition Malnutrition Evidence of Malnutrition Exists Yes Malnutrition (severe): Acute Illness/Injury Evidenced By Suboptimal Energy Intake ( Severe),Weight Loss (Severe) Intake Problem Inadequate Oral Intake Etiology related to altered GI function /obstruction Signs/Symptoms as evidenced by NPO Status Active Problem Clinical Problem Acute Disease or Injury Related Malnutrition Etiology Severe protein-calorie malnutrition in the context of acute disease related to altered GI function and inadequate oral intake Signs/Symptoms as evidenced by currently NPO, poor PO x past 1-2 weeks meeting less than 50% estimated nutrition needs and weight loss~5-6% x past 1-2 weeks Status Active Problem Recommendation Dietitian Recommendations/Changes Recommend PO as tolerated to Transitional diet with goal of Carbohydrate-Controlled diet as medically able to be advanced. ONS as PO diet advanced for extra protein. Consider parenteral nutrition support if unable to advance diet in 48 hours. Lab / Micro Data Result Diagrams: 09/22/22 05:45 09/22/22 05:45 Labs: Laboratory Results - last 24 hr 09/21/22 05:07: POC Glucose 94 09/21/22 12:09: POC Glucose 160 H 09/21/22 15:51: POC Glucose 169 H 09/21/22 21:57: POC Glucose 202 H 09/22/22 05:45: WBC 7.3, RBC 3.78 L, Hgb 9.6 L, Hct 33.2 L, MCV 87.8, MCH 25.4 L , MCHC 28.9 L, RDW Std Deviation 62.9 H, RDW Coeff of Naren 19.7 H, Plt Count 382, MPV 11.0, Immature Gran % (Auto) 0.300, Neut % (Auto) 59.6, Lymph % (Auto) 21.8, [place] % (Auto) 12.9 H, Eos % (Auto) 5.0, Baso % (Auto) 0.4, Absolute Neuts (auto) 4.3, Absolute Lymphs (auto) 1.58, Nucleated RBC % 0 09/22/22 05:45: Sodium 141, Potassium 3.7, Chloride 103, Carbon Dioxide 37.0 H, Anion Gap 1 L, BUN 8, Creatinine 0.57, Estim Creat Clear Calc 37.45, Est GFR (MDRD) Af Amer 131, Est GFR (MDRD) Non-Af 108, BUN/Creatinine Ratio 14.1, Glucose 180 H, Calcium 8.9 09/22/22 06:35: POC Glucose 158 H Physical Exam Const alert and no apparent distress Constitutional Narrative: Oriented HEENT normocephalic and head/scalp atraumatic Eyes Eyes Narrative: EOM grossly intact, anicteric Neck supple Resp normal respiratory effort Resp Narrative: Difficult to auscultate secondary to body habitus, diminished at the bases Cardio regular rate and regular rhythm GI GI Narrative: Protuberant, very mild tender to palpation diffusely, no rebound, guarding, rigidity Extremity Extremity Narrative: SCDs in place Neuro moves all extremities Neuro Narrative: No overt focal deficits appreciated Psych Psych Narrative: Cooperative Assessment & Plan Assessment/Plan (1) Large bowel obstruction: (2) Colonic mass: (3) Body mass index 45.0-49.9, adult: (4) Iron deficiency anemia: PLAN: Plan 82-year-old female with history of diabetes type 2, microcytic anemia, and TIA who was admitted 09/15 with right upper quadrant abdominal pain. She had recently been discharged 09/10 after hospitalization for microcytic anemia and was transfused 2 units of packed red blood cells during that admission. Had seen Dr. Robert with GI the day prior to this admission and colonoscopy was planned but she got worse and presented to the hospital. In ED CT scan showed 55 x 39 mm apical core type lesion around the hepatic flexure of the colon causing obstruction. Dr. Rivera had been contacted in the emergency room and she was taken to surgery 09/16 for a open right hemicolectomy which he tolerated well and was taken to ICU intubated in stable condition. #Colonic obstruction secondary to colonic mass Had right hemicolectomy 09/16 Improving, on ice chips and n.p.o., further advancing diet per surgery recommendations Given still not taking p.o. we will continue to monitor with supportive care Likely to TCU once stable 09/21/2022: Continues to have some general abdominal pain. Surgery following. Still has only had ice chips, awaiting tolerating further p.o. prior to deeming stable for transfer to TCU. 09/22/2022: Tolerating clears well, denies nausea vomiting. Still is not had a bowel movement. Does not have wound VAC in place on abdomen. Surgery following . Once tolerating diet and progresses further plan will be the TCU #Acute hypoxic respiratory failure following surgery Improving, ICU had been following but will now sign off On nasal cannula 09/21/2022: Has been fairly consistently 95% on 2 L. 09/22: Stable but does have elevated bicarb, will obtain VBG to assess for CO2 retention #Iron deficiency anemia secondary to chronic GI blood loss from colon mass, likely malignant Monitor hemoglobin #Type 2 diabetes mellitus Sliding scale insulin #DVT ppx: Maria Esther Jordan MD Charges/Coding Visit Charges Inpatient E&M: 17311 Subs Hosp L2
--- NOTE | 2022-09-22 08:27 | WOUNDNOTE ---
the wound VAC dressing remains intact at 125mmHg low continuous suction. nursing had to change the canister last evening. there is currently approx 50cc's drainage. will monitor.
--- NOTE | 2022-09-22 08:54 | CT_ITS ---
STUDY: CT CHEST, ABDOMEN T PELVIS WITH CONTRAST REASON FOR EXAM: Female, 82 years old. Colon cancer workup, increased drainage from incision RADIATION DOSAGE (If Supplied By Facility): CTDIvol = ( 20.93 ) mGy, DLP = ( 2064.34 ) mGycm TECHNIQUE: Transaxial imaging was performed following intravenous administration of Oral and IV Gastrografin and 100mL Isovue-300. Individualized dose optimization techniques were used for this CT. COMPARISON: Comparison is made with prior study dated 09/15/2022. FINDINGS: CHEST Bilateral pleural effusions right greater than left. Atelectasis and/or infiltrate at both lung bases as well as in the posterior aspect of the left upper lobe abutting the left major fissure. Coronary artery calcification. Calcification of the mitral valve annulus. Calcified mediastinal and bilateral hilar lymph nodes. Normal unenhanced pulmonary arteries. There is atherosclerotic calcification of the aortic arch with tortuosity and elongation of the aortic arch and descending thoracic aorta. There are multi-level degenerative changes of the thoracic spine. ABDOMEN Normal liver. Mildly distended gallbladder. Findings suggestive of small gallstones. Normal spleen. Normal pancreas. There is a 2 cm hypodense nodule in the cortex of the right adrenal gland suggestive of possible adrenal adenoma. Tiny nonobstructive crack was in the posterior calyx of the lower pole of the right kidney. Stable right renal cyst. Normal left kidney. Normal visualized stomach. Normal small intestine. Surgical anastomosis seen in the proximal transverse. There is non-visualization of the appendix. There is diffuse atherosclerotic calcification of the abdominal aorta and major visceral branches, without a demonstrated aneurysm. Normal inferior vena cava. Normal retroperitoneum. The patient is status post recent laparotomy with postoperative changes seen along the subcutaneous tissues of the mid and lower abdominal wall. There are mild degenerative changes of the visualized lumbar spine. The patient is status post bilateral total hip replacement limiting the evaluation of the pelvic structures. PELVIS There is no pelvic fluid. There is no pelvic lymphadenopathy or mass lesion. There is diffuse atherosclerotic calcification of the pelvic arteries. CT/CT Chest, Abd, Pel w/Contrast IMPRESSION: Bilateral pleural effusions and bibasilar infiltrates and/or atelectasis right greater than left. Status post anastomosis at the level of the proximal transverse colon. 2 cm hypodense nodule in the right adrenal gland. Findings suggestive of small gallstones. Postoperative changes seen along the anterior abdominal wall. Electronically Signed: Lamonte Gaona MD at 13:15 EDT ,
--- NOTE | 2022-09-22 08:59 | PN.SURG_ITS ---
Subjective Subjective Patient had a wound VAC placed to her incision due to leakage. Patient did have 500 cc out serous overnight. Patient tolerating full still having flatus no bowel movement Objective Data Objective Data Vital Signs: Vital Signs Temp Pulse Resp BP Pulse Ox O2 Del Method O2 Flow Rate 97.7 F L 86 18 131/51 H 96 Nasal Cannula 2 09/22/22 03:00 09/22/22 03:00 09/22/22 03:00 09/22/22 03:00 09/22/22 06:48 09/22/22 06:48 09/22/22 06:48 FiO2 30 09/17/22 07:00 Oxygen Flow Rate (L/min) 2 Oxygen Delivery Method Nasal Cannula Weight: 252 lb 6.868 oz Body Mass Index (BMI) 41.8 Intake & Output: Intake and Output for Last 24 Hours 09/20/22 09/21/22 09/22/22 23:59 23:59 23:59 Intake Total 50 / 450 800 / 800 Output Total 525 / 875 550 / 850 425 / 425 Balance -525 / -825 -500 / -400 375 / 375 Medical Nutrition Assessment Dietitian: Malnutrition Criteria Met Start: 09/16/22 14:35 Freq: Status: Active Protocol: Document 09/16/22 14:35 RMA (Rec: 09/16/22 14:36 RMA [id number]) Nutrition Malnutrition Evidence of Malnutrition Exists Yes Malnutrition (severe): Acute Illness/Injury Evidenced By Suboptimal Energy Intake ( Severe),Weight Loss (Severe) Intake Problem Inadequate Oral Intake Etiology related to altered GI function /obstruction Signs/Symptoms as evidenced by NPO Status Active Problem Clinical Problem Acute Disease or Injury Related Malnutrition Etiology Severe protein-calorie malnutrition in the context of acute disease related to altered GI function and inadequate oral intake Signs/Symptoms as evidenced by currently NPO, poor PO x past 1-2 weeks meeting less than 50% estimated nutrition needs and weight loss~5-6% x past 1-2 weeks Status Active Problem Recommendation Dietitian Recommendations/Changes Recommend PO as tolerated to Transitional diet with goal of Carbohydrate-Controlled diet as medically able to be advanced. ONS as PO diet advanced for extra protein. Consider parenteral nutrition support if unable to advance diet in 48 hours. Lab / Micro Data Result Diagrams: 09/22/22 05:45 09/22/22 05:45 Labs: Laboratory Results - last 24 hr 09/21/22 05:07: POC Glucose 94 09/21/22 12:09: POC Glucose 160 H 09/21/22 15:51: POC Glucose 169 H 09/21/22 21:57: POC Glucose 202 H 09/22/22 05:45: WBC 7.3, RBC 3.78 L, Hgb 9.6 L, Hct 33.2 L, MCV 87.8, MCH 25.4 L , MCHC 28.9 L, RDW Std Deviation 62.9 H, RDW Coeff of Naren 19.7 H, Plt Count 382, MPV 11.0, Immature Gran % (Auto) 0.300, Neut % (Auto) 59.6, Lymph % (Auto) 21.8, [place] % (Auto) 12.9 H, Eos % (Auto) 5.0, Baso % (Auto) 0.4, Absolute Neuts (auto) 4.3, Absolute Lymphs (auto) 1.58, Nucleated RBC % 0 09/22/22 05:45: Sodium 141, Potassium 3.7, Chloride 103, Carbon Dioxide 37.0 H, Anion Gap 1 L, BUN 8, Creatinine 0.57, Estim Creat Clear Calc 37.45, Est GFR (MDRD) Af Amer 131, Est GFR (MDRD) Non-Af 108, BUN/Creatinine Ratio 14.1, G lucose 180 H, Calcium 8.9 09/22/22 06:35: POC Glucose 158 H Physical Exam Const no apparent distress Resp normal respiratory effort Cardio regular rate GI GI Narrative: Soft, nondistended, wound VAC in place, minimally tender near incision. Assessment & Plan Assessment/Plan (1) S/P right hemicolectomy: (2) Colonic mass: (3) Acute respiratory failure with hypoxia: PLAN: Plan Patient continues to have flatus await bowel movement and then will advance from full's to transitional. Patient did have quite a bit of fluid out of her wound VAC 500 cc serous overni ght we will plan to check CT chest abdomen pelvis, chest due to initial cancer work-up and abdomen pelvis to take a look at the fascia. Fascia was closed with interrupted [id number] Prolene sutures so there could be a chance that small amounts of liquid could pass but I do think there would be a lower chance for dehiscence. When initially opened up the couple of reena did not fill any dehiscence in the fascia in that area. Continue wound VAC. Did call and discussed with patient's daughter as well as patient. Out of bed to chair Await pathology likely cancer Lovenox. Appreciate hospitalist assistance with medical management. Deanna Rivera M.D. Pager: [phone] [facility] [address] [place] [address], [address] [place] [address] Office: [phone]
[2022-09-22] MEDS: HYDROcodone Bitartrate/Apap 5/325 Tablet PO (09:18)
--- NOTE | 2022-09-22 10:00 | NURSING ---
pt drinking oral contrast for CT @ 2278
--- NOTE | 2022-09-22 10:54 | NURSING ---
pt drinking 2nd jar of contrast, iv started w/#22 in right wrist after 5th attempt
[2022-09-22 11:15] LABS: Blood Gas Specimen Type VEN; O2 Delivery Device Room Air; VBG BASE EXCESS 8 mmol/L (-1.0-3.5); VBG Bicarbonate 32 mmol/L (22-26); VBG PO2 53 mmHg (25-40); VBG SO2 88 % (50-70); VBG TCO2 33 mmol/L (23-33); VBG pCO2 46.7 mmHg (41-51); VBG pH 7.44 (7.32-7.42)
[2022-09-22 11:55] LABS: Bedside Glucose 149 mg/dL (74-106)
--- NOTE | 2022-09-22 13:00 | WOUNDNOTE ---
Wound VAC was removed per Dr Rivera's order. dry dressing applied with Medipore tape. pt tolerated well. daughter had requested this nurse check pulse ox because pt's sats had dropped last evening and patient was more confused. pulse ox on RA was 78%-81%. pt placed on 4L and pulse ox back up to 95%. JOSE LUIS Liang aware.
[2022-09-22] MEDS: LACTATED RINGERS 500 ML 999 ML IV (13:57)
[2022-09-22] MEDS: Enoxaparin 40 MG/0.4 ML Syringe SC (14:12)
[2022-09-22 23:00] LABS: Bedside Glucose 168 mg/dL (74-106)
[2022-09-23] VITALS (8 sets, daily range): BP systolic 125–137; BP diastolic 49–64; PULSE 79–91; RESP 16–20; TEMP 36.5–37; O2SAT 93–99
[2022-09-23] MEDS: Insulin Lispro 100 UNIT/ML INSULN.PEN SC ×4 (06:11→22:36)
[2022-09-23] MEDS: Nystatin Powder 15gm Bottle 1 APPLIC TOPICAL ×3 (06:12→22:39)
[2022-09-23 06:42] LABS: Absolute Lymphocyte Count 1.54 X10^3/uL (0.83-4.51); Absolute Neutrophil Count 7.2 X10^3/uL (2.0-7.7); Basophil# 0.02 X10^3/uL; Basophil% 0.2 % (0-1); Eosinophil# 0.49 X10^3/uL; Eosinophils% 4.7 % (0-5); Hematocrit 32.6 % (37-47); Hemoglobin 9.6 g/dL (12.0-15.0); Lymphocyte # 1.54 X10^3/ul (0.83-4.51); Lymphocyte % 14.9 % (19-41); Mean Corp Hgb Conc 29.4 g/dL (32-36); Mean Corpuscular Hgb 25.3 pg (27.0-32.0); Mean Platelet Vol. 10.9 fl (6.2-12.0); Monocyte# 1.01 X10^3/uL; Monocyte% 9.8 % (0-10); NRBC Flagged by Analyzer 0 % (0-5); Neutrophil # 7.24 X10^3/uL (2.7-7.7); Neutrophil % 70.1 % (47-70); Platelet Count 376 K/mm3 (150-450); RBC Distribution Width CV 19.6 % (11.6-14.6); RBC Distribution Width SD 60.7 fl (35.1-43.9); Red Blood Count 3.79 M/mm3 (4.2-5.4); White Blood Count 10.3 K/mm3 (4.4-11.0)
[2022-09-23 07:07] LABS: Anion Gap 4 (5-15); BUN 6 mg/dL (7-18); BUN/Creat Ratio 12.2 RATIO (10-20); Calcium,Total 8.9 mg/dL (8.5-10.1); Chloride 102 mmol/L (98-107); Creatinine, Serum 0.49 mg/dL (0.55-1.02); EST Glomerular Filtration Rate 128 mL/min (>60); Est Glom Filt Rate - Afr Amer 155 mL/min (>60); Estimated Creatinine Clearance 37.45 ml/min; Glucose 162 mg/dL (74-106); Potassium 3.7 mmol/L (3.5-5.1); Sodium Level 143 mmol/L (136-145)
--- NOTE | 2022-09-23 07:38 | PN.SURG_ITS ---
Subjective Subjective Patient is still having some some drainage from her incision seem to be a little less than previous. Patient's incision dressing was last changed at 1 AM patient did have soaked ABD pad but the second 1 was dry and clean Objective Data Objective Data Vital Signs: Vital Signs Temp Pulse Resp BP Pulse Ox O2 Del Method O2 Flow Rate 98.2 F 91 18 137/56 H 99 Nasal Cannula 2 09/23/22 02:00 09/23/22 02:00 09/23/22 02:00 09/23/22 02:00 09/23/22 02:00 09/23/22 02:00 09/23/22 02:00 FiO2 30 09/17/22 07:00 Oxygen Flow Rate (L/min) 2 Oxygen Delivery Method Nasal Cannula Weight: 250 lb 7.122 oz Body Mass Index (BMI) 41.8 Intake & Output: Intake and Output for Last 24 Hours 09/21/22 09/22/22 09/23/22 23:59 23:59 23:59 Intake Total 50 / 450 2950 / 3190 640 / 640 Output Total 550 / 850 1325 / 1675 600 / 600 Balance -500 / -400 1625 / 1515 40 / 40 Medical Nutrition Assessment Dietitian: Malnutrition Criteria Met Start: 09/16/22 14:35 Freq: Status: Active Protocol: Document 09/22/22 15:04 RMA (Rec: 09/22/22 15:04 RMA [id number]) Nutrition Malnutrition Evidence of Malnutrition Exists Yes Malnutrition (severe): Acute Illness/Injury Evidenced By Suboptimal Energy Intake ( Severe),Weight Loss (Severe) Intake Problem Inadequate Oral Intake Etiology related to altered GI function /obstruction Signs/Symptoms as evidenced by NPO status X day #4 Status Resolved Problem Clinical Problem Acute Disease or Injury Related Malnutrition Etiology Severe protein-calorie malnutrition in the context of acute disease related to altered GI function and inadequate oral intake Signs/Symptoms as evidenced by 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 Pt does not want ONS when offered today. ONS as needed when diet advanced from full liquids. Lab / Micro Data Result Diagrams: 09/23/22 05:45 09/23/22 05:45 Labs: Laboratory Results - last 24 hr 09/22/22 11:32: POC Glucose 149 H 09/22/22 22:27: POC Glucose 168 H 09/23/22 05:45: WBC 10.3, RBC 3.79 L, Hgb 9.6 L, Hct 32.6 L, MCV 86.0, MCH 25.3 L, MCHC 29.4 L, RDW Std Deviation 60.7 H, RDW Coeff of Naren 19.6 H, Plt Count 376 , MPV 10.9, Immature Gran % (Auto) 0.300, Neut % (Auto) 70.1 H, Lymph % (Auto) 14.9 L, [place] % (Auto) 9.8, Eos % (Auto) 4.7, Baso % (Auto) 0.2, Absolute Neuts (auto) 7.2, Absolute Lymphs (auto) 1.54, Nucleated RBC % 0 09/23/22 05:45: Sodium 143, Potassium 3.7, Chloride 102, Carbon Dioxide 37.0 H, Anion Gap 4 L, BUN 6 L, Creatinine 0.49 L, Estim Creat Clear Calc 37.45, Est GFR (MDRD) Af Amer 155, Est GFR (MDRD) Non-Af 128, BUN/Creatinine Ratio 12.2, Glucose 162 H, Calcium 8.9 ABG Data ABG results: ABG 09/22/22 11:08 Specimen Type EUNICE VBG pH 7.44 H VBG pO2 53 H VBG HCO3 32 H VBG Total CO2 33 VBG O2 Sat (Calc) 88 H VBG Base Excess 8 H POC Mix VBG pCO2 Pt Tmp 46.7 O2 Delivery Device Room Air Radiography Diagnostic Testing: Radiology Impression Chest/Abdomen/Pelvis CT 09/22/22 08:54 IMPRESSION: Bilateral pleural effusions and bibasilar infiltrates and/or atelectasis right greater than left. Status post anastomosis at the level of the proximal transverse colon. 2 cm hypodense nodule in the right adrenal gland. Findings suggestive of small gallstones. Postoperative changes seen along the anterior abdominal wall. Electronically Signed: Lamonte Gaona MD at 13:15 EDT , Assessment & Plan Assessment/Plan (1) S/P right hemicolectomy: (2) Colonic mass: (3) Acute respiratory failure with hypoxia: PLAN: Plan Patient's fascia was felt through the previously incision. No dehiscence was felt on exam. Continue full liquids until patient has a bowel movement and then will advance Continue dry dressings as a wound VAC may cause an inadvertent fistula and CT abdomen pelvis not show any obvious dehiscence or much fluid in the abdomen or subcutaneous tissue. Out of bed to chair Await pathology likely cancer Lovenox. Appreciate hospitalist assistance with medical management. Deanna Rivera M.D. Pager: [phone] [facility] [address] [place] [address], [address] [place] [address] Office: [phone]
--- NOTE | 2022-09-23 07:48 | PN.HOSP_ITS ---
Subjective Subjective DOS: 10/20/2022 CC: Abdominal pain Reports she continues to feel better, she is unsure if she is eaten anything substantial but reports she felt she was tolerating the clear liquids, denies nausea. Abdominal pain is certainly improving. Denies chest pain, no changes in her breathing, denies any other complaints this morning. Objective Data Objective Data Vital Signs: Vital Signs Temp Pulse Resp BP Pulse Ox O2 Del Method O2 Flow Rate 98.2 F 91 18 137/56 H 99 Nasal Cannula 2 09/23/22 02:00 09/23/22 02:00 09/23/22 02:00 09/23/22 02:00 09/23/22 02:00 09/23/22 02:00 09/23/22 02:00 FiO2 30 09/17/22 07:00 Oxygen Flow Rate (L/min) 2 Oxygen Delivery Method Nasal Cannula Weight: 113.6 kg Body Mass Index (BMI) 41.8 Intake & Output: Intake and Output for Last 24 Hours 09/21/22 09/22/22 09/23/22 23:59 23:59 23:59 Intake Total 50 / 450 2950 / 3190 640 / 640 Output Total 550 / 850 1325 / 1675 600 / 600 Balance -500 / -400 1625 / 1515 40 / 40 Medical Nutrition Assessment Dietitian: Malnutrition Criteria Met Start: 09/16/22 14:35 Freq: Status: Active Protocol: Document 09/22/22 15:04 RMA (Rec: 09/22/22 15:04 RMA [id number]) Nutrition Malnutrition Evidence of Malnutrition Exists Yes Malnutrition (severe): Acute Illness/Injury Evidenced By Suboptimal Energy Intake ( Severe),Weight Loss (Severe) Intake Problem Inadequate Oral Intake Etiology related to altered GI function /obstruction Signs/Symptoms as evidenced by NPO status X day #4 Status Resolved Problem Clinical Problem Acute Disease or Injury Related Malnutrition Etiology Severe protein-calorie malnutrition in the context of acute disease related to altered GI function and inadequate oral intake Signs/Symptoms as evidenced by 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 Pt does not want ONS when offered today. ONS as needed when diet advanced from full liquids. Lab / Micro Data Result Diagrams: 09/23/22 05:45 09/23/22 05:45 Labs: Laboratory Results - last 24 hr 09/22/22 11:32: POC Glucose 149 H 09/22/22 22:27: POC Glucose 168 H 09/23/22 05:45: WBC 10.3, RBC 3.79 L, Hgb 9.6 L, Hct 32.6 L, MCV 86.0, MCH 25.3 L, MCHC 29.4 L, RDW Std Deviation 60.7 H, RDW Coeff of Naren 19.6 H, Plt Count 376, MPV 10.9, Immature Gran % (Auto) 0.300, Neut % (Auto) 70.1 H, Lymph % (Auto) 14.9 L, [place] % (Auto) 9.8, Eos % (Auto) 4.7, Baso % (Auto) 0.2, Absolute Neuts (auto) 7.2, Absolute Lymphs (auto) 1.54, Nucleated RBC % 0 09/23/22 05:45: Sodium 143, Potassium 3.7, Chloride 102, Carbon Dioxide 37.0 H, Anion Gap 4 L, BUN 6 L, Creatinine 0.49 L, Estim Creat Clear Calc 37.45, Est GFR (MDRD) Af Amer 155, Est GFR (MDRD) Non-Af 128, BUN/Creatinine Ratio 12.2, Glucose 162 H, Calcium 8.9 ABG Data ABG results: ABG 09/22/22 11:08 Specimen Type EUNICE VBG pH 7.44 H VBG pO2 53 H VBG HCO3 32 H VBG Total CO2 33 VBG O2 Sat (Calc) 88 H VBG Base Excess 8 H POC Mix VBG pCO2 Pt Tmp 46.7 O2 Delivery Device Room Air Radiography Diagnostic Testing: Radiology Impression Chest/Abdomen/Pelvis CT 09/22/22 08:54 IMPRESSION: Bilateral pleural effusions and bibasilar infiltrates and/or atelectasis right greater than left. Status post anastomosis at the level of the proximal transverse colon. 2 cm hypodense nodule in the right adrenal gland. Findings suggestive of small gallstones. Postoperative changes seen along the anterior abdominal wall. Electronically Signed: Lamonte Gaona MD at 13:15 EDT , Physical Exam Const alert and no apparent distress Constitutional Narrative: Oriented HEENT normocephalic and head/scalp atraumatic Eyes Eyes Narrative: EOM grossly intact, anicteric Neck supple Resp normal respiratory effort Resp Narrative: Difficult to auscultate secondary to body habitus, diminished at the bases Cardio regular rate and regular rhythm GI GI Narrative: Protuberant, very mild tender to palpation diffusely, no rebound, guarding, rigidity Extremity Extremity Narrative: SCDs in place Neuro moves all extremities Neuro Narrative: No overt focal deficits appreciated Psych Psych Narrative: Cooperative Assessment & Plan Assessment/Plan (1) Large bowel obstruction: (2) Colonic mass: (3) Body mass index 45.0-49.9, adult: (4) Iron deficiency anemia: PLAN: Plan 82-year-old female with history of diabetes type 2, microcytic anemia, and TIA who was admitted 09/15 with right upper quadrant abdominal pain. She had recently been discharged 09/10 after hospitalization for microcytic anemia and was transfused 2 units of packed red blood cells during that admission. Had seen Dr. Robert with GI the day prior to this admission and colonoscopy was planned but she got worse and presented to the hospital. In ED CT scan showed 55 x 39 mm apical core type lesion around the hepatic flexure of the colon causing obstruction. Dr. Rivera had been contacted in the emergency room and she was taken to surgery 09/16 for a open right hemicolectomy which he tolerated well and was taken to ICU intubated in stable condition. #Colonic obstruction secondary to colonic mass Had right hemicolectomy 09/16 Improving, on ice chips and n.p.o., further advancing diet per surgery recommendations Given still not taking p.o. we will continue to monitor with supportive care Likely to TCU once stable 09/21/2022: Continues to have some general abdominal pain. Surgery following. Still has only had ice chips, awaiting tolerating further p.o. prior to deeming stable for transfer to TCU. 09/22/2022: Tolerating clears well, denies nausea vomiting. Still is not had a bowel movement. Does not have wound VAC in place on abdomen. Surgery following. Once tolerating diet and progresses further plan will be the TCU 09/23/22: Still on clears. Had CT obtained by surgery yesterday due to amount of drainage from surgical site. There are bilateral pleural effusions and bibasilar infiltrates and/or atelectasis right greater than left. Status post anastomoses at the level of the proximal transverse colon. 2 cm hypodense nodule in the right adrenal gland. Findings suggestive of small gallstones. Postop changes. Continue to await pathology of colonic mass, concern for christiano gnancy. Appreciate surgery recommendations and management. #Acute hypoxic respiratory failure following surgery Improving, ICU had been following but will now sign off On nasal cannula 09/21/2022: Has been fairly consistently 95% on 2 L. 09/22: Stable but does have elevated bicarb, will obtain VBG to assess for CO2 retention 09/23: VBG and labs suggestive of metabolic alkalosis with respiratory acidosis that appeared at least in part compensatory as VBG was alkalotic, suspect possible contraction alkalosis given poor p.o. intake and not receiving fluids with respiratory compensation as well as a component of obesity hypoventilation. Chest CT shows bilateral pleural effusions, worse on the right than the left but she is continuing to improve respiratory status brunner. #Iron deficiency anemia secondary to chronic GI blood loss from colon mass, likely malignant Monitor hemoglobin #Type 2 diabetes mellitus Sliding scale insulin #DVT ppx: Maria Esther Jordan MD Charges/Coding Visit Charges Inpatient E&M: 30042 Subs Hosp L2
--- NOTE | 2022-09-23 08:02 | WOUNDNOTE ---
wound photo: abdomen
[2022-09-23] MEDS: Menthol/Lanolin/Calamine/Znox 113 GM Tube 1 APPLIC TOPICAL ×2 (10:28→22:38)
[2022-09-23] MEDS: Enoxaparin 40 MG/0.4 ML Syringe SC (10:29)
--- NOTE | 2022-09-23 10:52 | NURSING ---
1050- Accucheck 211. Machine does not recognize patient's V#. Correct wristband and correct patient confirmed with patient's name, , and current admission. Deangelo AMAYA notified.
--- NOTE | 2022-09-23 11:07 | CASEMGMT ---
Social Work Pt was admitted from [facility] TCU. Phone call to Kandice in TCU who confirms they are able to accept pt back when medically ready. Pt will need a new precert with insurance prior to return. MAYDA met with pt and pt dgt and introduced self and role of MAYDA. Pt deferred discharge planning discussion to her daughter Carissa. Carissa states the plan is for pt to return to TCU when able. Carissa also states that she has applied for Medicaid in the event pt is cut by insurance at TCU prior to pt being ready to return home and pt would need ECF. MAYDA updated PRANAY Mcdaniel that medicaid application has been submitted to S. Precert has not yet been submitted as physician states pt is not medically ready for discharge. Plan: U, precert will need to be obtained. DONA Brandt
[2022-09-23 11:15] LABS: Bedside Glucose 211 mg/dL (74-106)
[2022-09-23] MEDS: Furosemide 40 MG Tablet PO (15:50)
[2022-09-23 16:15] LABS: Bedside Glucose 191 mg/dL (74-106)
[2022-09-23 16:20] LABS: Bedside Glucose 161 mg/dL (74-106)
[2022-09-23] MEDS: Glucerna Shake 120 ML LIQUID PO (18:28)
[2022-09-23 23:00] LABS: Bedside Glucose 214 mg/dL (74-106)
[2022-09-24] VITALS (7 sets, daily range): BP systolic 120–156; BP diastolic 53–72; PULSE 74–87; RESP 18–20; TEMP 36.6–36.8; O2SAT 90–100
[2022-09-24] MEDS: Nystatin Powder 15gm Bottle 1 APPLIC TOPICAL ×3 (06:46→21:10)
[2022-09-24] MEDS: Insulin Lispro 100 UNIT/ML INSULN.PEN SC ×4 (06:51→21:11)
[2022-09-24 07:10] LABS: Bedside Glucose 150 mg/dL (74-106)
--- NOTE | 2022-09-24 07:18 | PCM.PN.HOSP ---
Subjective Subjective DOS: 09/24/2022 CC: Abdominal pain Overall is feeling better, breathing roughly the same, abdominal pain improving. Had a bowel movement yesterday and plan to advance diet. Not nauseous at this time. Denies any other complaints this a.m. Objective Data Objective Data Vital Signs: Vital Signs Temp Pulse Resp BP Pulse Ox O2 Del Method O2 Flow Rate 98.2 F 84 20 H 156/56 H 94 Nasal Cannula 2 09/24/22 06:44 09/24/22 06:44 09/24/22 06:44 09/24/22 06:44 09/24/22 06:44 09/24/22 06:44 09/24/22 06:44 FiO2 30 09/17/22 07:00 Oxygen Flow Rate (L/min) 2 Oxygen Delivery Method Nasal Cannula Weight: 113.4 kg Body Mass Index (BMI) 41.8 Intake & Output: Intake and Output for Last 24 Hours 09/22/22 09/23/22 09/24/22 23:59 23:59 23:59 Intake Total 2950 / 3190 940 / 940 400 / 400 Output Total 1325 / 1675 1400 / 1400 950 / 950 Balance 1625 / 1515 -460 / -460 -550 / -550 Medical Nutrition Assessment Dietitian: Malnutrition Criteria Met Start: 09/16/22 14:35 Freq: Status: Active Protocol: Document 09/22/22 15:04 RMA (Rec: 09/22/22 15:04 RMA [id number]) Nutrition Malnutrition Evidence of Malnutrition Exists Yes Malnutrition (severe): Acute Illness/Injury Evidenced By Suboptimal Energy Intake ( Severe),Weight Loss (Severe) Intake Problem Inadequate Oral Intake Etiology related to altered GI function /obstruction Signs/Symptoms as evidenced by NPO status X day #4 Status Resolved Problem Clinical Problem Acute Disease or Injury Related Malnutrition Etiology Severe protein-calorie malnutrition in the context of acute disease related to altered GI function and inadequate oral intake Signs/Symptoms as evidenced 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 Pt does not want ONS when offered today. ONS as needed when diet advanced from full liquids. Lab / Micro Data Result Diagrams: 09/23/22 05:45 09/23/22 05:45 Labs: Laboratory Results - last 24 hr 09/23/22 06:10: POC Glucose 161 H 09/23/22 10:50: POC Glucose 211 H 09/23/22 15:48: POC Glucose 191 H 09/23/22 22:35: POC Glucose 214 H 09/24/22 06:49: POC Glucose 150 H Physical Exam Const alert and no apparent distress Constitutional Narrative: Oriented HEENT normocephalic and head/scalp atraumatic Eyes Eyes Narrative: EOM grossly intact, anicteric Neck supple Resp normal respiratory effort Resp Narrative: Difficult to auscultate secondary to body habitus, diminished at the bases Cardio regular rate and regular rhythm GI GI Narrative: Protuberant, very mild tender to palpation diffusely, no rebound, guarding, rigidity Extremity Extremity Narrative: SCDs in place Neuro moves all extremities Neuro Narrative: No overt focal deficits appreciated Psych Psych Narrative: Cooperative Assessment & Plan Assessment/Plan (1) Large bowel obstruction: (2) Colonic mass: (3) Body mass index 45.0-49.9, adult: (4) Iron deficiency anemia: PLAN: Plan 82-year-old female with history of diabetes type 2, microcytic anemia, and TIA who was admitted 09/15 with right upper quadrant abdominal pain. She had recently been discharged 09/10 after hospitalization for microcytic anemia and was transfused 2 units of packed red blood cells during that admission. Had seen Dr. Robert with GI the day prior to this admission and colonoscopy was planned but she got worse and presented to the hospital. In ED CT scan showed 55 x 39 mm apical core type lesion around the hepatic flexure of the colon causing obstruction. Dr. Rivera had been contacted in the emergency room and she was taken to surgery 09/16 for a open right hemicolectomy which he tolerated well and was taken to ICU intubated in stable condition. #Colonic obstruction secondary to colonic mass Had right hemicolectomy 09/16 Improving, on ice chips and n.p.o., further advancing diet per surgery recommendations Given still not taking p.o. we will continue to monitor with supportive care Likely to TCU once stable 09/21/2022: Continues to have some general abdominal pain. Surgery following. Still has only had ice chips, awaiting tolerating further p.o. prior to deeming stable for transfer to TCU. 09/22/2022: Tolerating clears well, denies nausea vomiting. Still is not had a bowel movement. Does not have wound VAC in place on abdomen. Surgery following. Once tolerating diet and progresses further plan will be the TCU 09/23/22: Still on clears. Had CT obtained by surgery yesterday due to amount of drainage from surgical site. There are bilateral pleural effusions and bibasilar infiltrates and/or atelectasis right greater than left. Status post anastomoses at the level of the proximal transverse colon. 2 cm hypodense nodule in the right adrenal gland. Findings suggestive of small gallstones. Postop changes. Continue to await pathology of colonic mass, concern for malignancy. Appreciate surgery recommendations and management. 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 All margins involved by carcinoma, high-grade dysplasia and/or adenoma. 13 of 13 lymph nodes negative for metastatic carcinoma. Discussed with Ms. Solomon, will consult oncology. Additionally has moderate right pleural effusion and will order IR guided thoracentesis for fluid sample. #Acute hypoxic respiratory failure following surgery Improving, ICU had been following but will now sign off On nasal cannula 09/21/2022: Has been fairly consistently 95% on 2 L. 09/22: Stable but does have elevated bicarb, will obtain VBG to assess for CO2 retention 09/23: VBG and labs suggestive of metabolic alkalosis with respiratory acidosis that appeared at least in part compensatory as VBG was alkalotic, suspect possible contraction alkalosis given poor p.o. intake and not receiving fluids with respiratory compensation as well as a component of obesity hypoventilation. Chest CT shows bilateral pleural effusions, worse on the right than the left but she is continuing to improve respiratory status brunner. 09/24: Respiratory status has been fairly stable, with a moderate effusion however in light of new cancer diagnosis we will order IR guided Thora to get fluid sample #Iron deficiency anemia secondary to chronic GI blood loss from colon mass, likely malignant Monitor hemoglobin #Type 2 diabetes mellitus Sliding scale insulin #DVT ppx: Lovenox Marcelina Jordan MD Charges/Coding Visit Charges Inpatient E&M: 57306 Subs Hosp L2
[2022-09-24 07:20] LABS: Absolute Lymphocyte Count 1.96 X10^3/uL (0.83-4.51); Basophil# 0.04 X10^3/uL; Basophil% 0.5 % (0-1); Eosinophil# 0.54 X10^3/uL; Eosinophils% 6.4 % (0-5); Hematocrit 31.5 % (37-47); Hemoglobin 9.5 g/dL (12.0-15.0); Lymphocyte # 1.96 X10^3/ul (0.83-4.51); Lymphocyte % 23.3 % (19-41); Mean Corp Hgb Conc 30.2 g/dL (32-36); Mean Corpuscular Hgb 25.5 pg (27.0-32.0); Mean Corpuscular Volume 84.7 fL (81-99); Mean Platelet Vol. 11.3 fl (6.2-12.0); Monocyte# 0.85 X10^3/uL; Monocyte% 10.1 % (0-10); NRBC Flagged by Analyzer 0 % (0-5); Neutrophil # 4.99 X10^3/uL (2.7-7.7); Neutrophil % 59.2 % (47-70); Platelet Count 404 K/mm3 (150-450); RBC Distribution Width SD 61.1 fl (35.1-43.9); Red Blood Count 3.72 M/mm3 (4.2-5.4); White Blood Count 8.4 K/mm3 (4.4-11.0)
--- NOTE | 2022-09-24 07:22 | US_ITS ---
STUDY: SUPERFICIAL ULTRASOUND - ASSESSMENT OF THE LEFT PLEURAL EFFUSION. REASON FOR EXAM: Female, 82 years old. R sided mod effusion, diagnostic tap, new CA dx TECHNIQUE: A superficial ultrasound was performed with real-time and static gill-scale imaging. COMPARISON: None. FINDINGS: Minimal left pleural effusion. Not enough for safe thoracentesis. US/Chest IMPRESSION: Minimal left pleural effusion. Electronically Signed: Lamonte Gaona MD at 9:10 EST ,
[2022-09-24 07:43] LABS: Anion Gap 3 (5-15); BUN 4 mg/dL (7-18); BUN/Creat Ratio 8.1 RATIO (10-20); Calcium,Total 8.8 mg/dL (8.5-10.1); Chloride 100 mmol/L (98-107); Creatinine, Serum 0.49 mg/dL (0.55-1.02); EST Glomerular Filtration Rate 127 mL/min (>60); Est Glom Filt Rate - Afr Amer 154 mL/min (>60); Estimated Creatinine Clearance 37.45 ml/min; Glucose 152 mg/dL (74-106); Potassium 3.7 mmol/L (3.5-5.1); Sodium Level 142 mmol/L (136-145)
[2022-09-24 08:34] LABS: ALB/GLOB Ratio 0.4 RATIO (0.9-2.4); LDH 273 U/L (84-246); Protein, Total 5.6 g/dL (6.4-8.2)
--- NOTE | 2022-09-24 08:43 | PCM.PN.SRG ---
Subjective Subjective Patient had bowel movement yesterday tolerating a regular diet. Patient still having leakage from her wound. Prealbumin is 6.3 patient's previous albumin is 1.7. Likely her malnutrition has exacerbating the problem. Objective Data Objective Data Vital Signs: Vital Signs Temp Pulse Resp BP Pulse Ox O2 Del Method O2 Flow Rate 98.2 F 84 20 H 156/56 H 90 Nasal Cannula 2 09/24/22 06:44 09/24/22 06:44 09/24/22 06:44 09/24/22 06:44 09/24/22 07:41 09/24/22 07:41 09/24/22 07:41 FiO2 30 09/17/22 07:00 Oxygen Flow Rate (L/min) 2 Oxygen Delivery Method Nasal Cannula Weight: 250 lb 0.067 oz Body Mass Index (BMI) 41.8 Intake & Output: Intake and Output for Last 24 Hours 09/22/22 09/23/22 09/24/22 23:59 23:59 23:59 Intake Total 2950 / 3190 940 / 940 400 / 400 Output Total 1325 / 1675 1400 / 1400 950 / 950 Balance 1625 / 1515 -460 / -460 -550 / -550 Medical Nutrition Assessment Dietitian: Malnutrition Criteria Met Start: 09/16/22 14:35 Freq: Status: Active Protocol: Document 09/22/22 15:04 RMA (Rec: 09/22/22 15:04 RMA [id number]) Nutrition Malnutrition Evidence of Malnutrition Exists Yes Malnutrition (severe): Acute Illness/Injury Evidenced By Suboptimal Energy Intake ( Severe),Weight Loss (Severe) Intake Problem Inadequate Oral Intake Etiology related to altered GI function /obstruction Signs/Symptoms as evidenced by NPO status X day #4 Status Resolved Problem Clinical Problem Acute Disease or Injury Related Malnutrition Etiology Severe protein-calorie malnutrition in the context of acute disease related to altered GI function and inadequate oral intake Signs/Symptoms as 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 Pt does not want ONS when offered today. ONS as needed when diet advanced from full liquids. Lab / Micro Data Result Diagrams: 09/24/22 05:50 09/24/22 05:30 Labs: Laboratory Results - last 24 hr 09/23/22 06:10: POC Glucose 161 H 09/23/22 10:50: POC Glucose 211 H 09/23/22 15:48: POC Glucose 191 H 09/23/22 22:35: POC Glucose 214 H 09/24/22 05:30: Sodium 142, Potassium 3.7, Chloride 100, Carbon Dioxide 39.0 H, Anion Gap 3 L, BUN 4 L, Creatinine 0.49 L, Estim Creat Clear Calc 37.45, Est GFR (MDRD) Af Amer 154, Est GFR (MDRD) Non-Af 127, BUN/Creatinine Ratio 8.1 L, Glucose 152 H, Calcium 8.8 09/24/22 05:30: Lactate Dehydrogenase 273 H, Total Protein 5.6 L, Globulin 4.0, Albumin/Globulin Ratio 0.4 L 09/24/22 05:50: WBC 8.4, RBC 3.72 L, Hgb 9.5 L, Hct 31.5 L, MCV 84.7, MCH 25.5 L, MCHC 30.2 L, RDW Std Deviation 61.1 H, RDW Coeff of Naren 20.0 H, Plt Count 404, MPV 11.3, Immature Gran % (Auto) 0.500, Neut % (Auto) 59.2, Lymph % (Auto) 23.3, [place] % (Auto) 10.1 H, Eos % (Auto) 6.4 H, Baso % (Auto) 0.5, Absolute Neuts (auto) 5.0, Absolute Lymphs (auto) 1.96, Nucleated RBC % 0 09/24/22 06:49: POC Glucose 150 H Physical Exam Const no apparent distress Resp normal respiratory effort Cardio regular rate GI GI Narrative: Soft, nondistended, incision healing well with reena. Patient does have an opening in the mid incision which is draining serous fluid. Currently been using dry gauze/ABDs. Assessment & Plan Assessment/Plan (1) S/P right hemicolectomy: (2) Colonic mass: (3) Acute respiratory failure with hypoxia: PLAN: Plan Patient is tolerating regular diet as well as Ensure. Patient's preoperative 6.3 albumin is 1.7 on last check?severe malnutrition. This is likely causing some third spacing with the fluids and contributing to the serous fluid from incision. Patient's incisions were closed with [id number] Prolene sutures which is less likely to have dehiscence; however, there could be small little gaps for the fluid to pass due to poor wound healing currently. Due to patient's poor nutrition as well as previously need to stay intubated after general anesthesia, I would not think taking her back to the OR would help the situation anymore than controlling the drainage for now and getting her nutrition better. Did discuss with patient as well as her daughter. Out of bed to chair Pathology: Adenocarcinoma of the colon 1313 nodes negative. Lovenox. Appreciate hospitalist assistance with medical management. Okay to restart Plavix. Deanna Rivera M.D. Pager: [phone] [facility] [address] [place] [address], [address] [place] [address] Office: [phone]
--- NOTE | 2022-09-24 09:26 | WOUNDNOTE ---
Pt is still having a moderate amount of serosanguineous drainage from the surgical incision. discussed with Dr Rivera and applied an ostomy appliance to the opening mid abdominal incision. the appliance does cover a good portion of the incision so will need to monitor for leaks. can consider a smaller pediatric applied if needed. will monitor closely.
[2022-09-24] MEDS: Menthol/Lanolin/Calamine/Znox 113 GM Tube 1 APPLIC TOPICAL (09:38)
[2022-09-24 10:47] LABS: Prealbumin 6.3 mg/dL (20.0-40.0)
[2022-09-24] MEDS: Glucerna Shake 120 ML LIQUID PO ×3 (11:49→21:13)
[2022-09-24 12:01] LABS: Bedside Glucose 248 mg/dL (74-106)
--- NOTE | 2022-09-24 14:01 | WOUNDNOTE ---
The larger ostomy appliance had leaked, so a pediatric appliance was placed. this also leaked even with a little stoma paste. applied a new dry dressing and ABD pads. notified Dr Rivera as well. discussed with Liv that Dr Rivera wants the dressings changed frequently to avoid skin breakdown from moisture.
[2022-09-24 16:55] LABS: Bedside Glucose 250 mg/dL (74-106)
[2022-09-24 22:40] LABS: Bedside Glucose 207 mg/dL (74-106)
[2022-09-25 03:48] VITALS: BP 153/62; PULSE 83; RESP 18; TEMP 36.8; O2SAT 99
[2022-09-25 06:41] LABS: Absolute Lymphocyte Count 1.95 X10^3/uL (0.83-4.51); Absolute Neutrophil Count 4.7 X10^3/uL (2.0-7.7); Basophil# 0.02 X10^3/uL; Basophil% 0.2 % (0-1); Eosinophil# 0.66 X10^3/uL; Eosinophils% 8.1 % (0-5); Hematocrit 32.4 % (37-47); Hemoglobin 9.3 g/dL (12.0-15.0); Lymphocyte # 1.95 X10^3/ul (0.83-4.51); Mean Corp Hgb Conc 28.7 g/dL (32-36); Mean Corpuscular Hgb 24.5 pg (27.0-32.0); Mean Corpuscular Volume 85.3 fL (81-99); Mean Platelet Vol. 11.5 fl (6.2-12.0); Monocyte# 0.74 X10^3/uL; Monocyte% 9.1 % (0-10); NRBC Flagged by Analyzer 0 % (0-5); Neutrophil # 4.72 X10^3/uL (2.7-7.7); Neutrophil % 58.1 % (47-70); Platelet Count 407 K/mm3 (150-450); RBC Distribution Width CV 19.9 % (11.6-14.6); RBC Distribution Width SD 61.1 fl (35.1-43.9); White Blood Count 8.1 K/mm3 (4.4-11.0)
[2022-09-25] MEDS: Insulin Lispro 100 UNIT/ML INSULN.PEN SC ×4 (06:41→21:48)
[2022-09-25] MEDS: Nystatin Powder 15gm Bottle 1 APPLIC TOPICAL ×3 (06:42→21:51)
[2022-09-25 07:12] LABS: Anion Gap 3 (5-15); BUN 5 mg/dL (7-18); BUN/Creat Ratio 10.8 RATIO (10-20); Calcium,Total 8.9 mg/dL (8.5-10.1); Chloride 103 mmol/L (98-107); Creatinine, Serum 0.46 mg/dL (0.55-1.02); EST Glomerular Filtration Rate 138 mL/min (>60); Est Glom Filt Rate - Afr Amer 167 mL/min (>60); Estimated Creatinine Clearance 37.45 ml/min; Glucose 186 mg/dL (74-106); Potassium 3.4 mmol/L (3.5-5.1); Sodium Level 143 mmol/L (136-145)
[2022-09-25 07:21] LABS: Bedside Glucose 160 mg/dL (74-106)
[2022-09-25 07:42] VITALS: BP 149/58; PULSE 79; RESP 16; TEMP 36.4; O2SAT 98
--- NOTE | 2022-09-25 08:33 | PCM.PN.HOSP ---
Subjective Subjective DOS: 09/25/2022 CC: Follow-up abdominal pain Continuing to improve. Was able to eat a little bit yesterday, reports abdominal pain is improving. Denies chest pain or shortness of breath. Denies other complaints this a.m. Objective Data Objective Data Vital Signs: Vital Signs Temp Pulse Resp BP Pulse Ox O2 Del Method O2 Flow Rate 97.6 F L 79 16 149/58 H 98 Room Air 2 09/25/22 07:42 09/25/22 07:42 09/25/22 07:42 09/25/22 07:42 09/25/22 07:42 09/25/22 07:42 09/25/22 03:48 FiO2 30 09/17/22 07:00 Oxygen Flow Rate (L/min) [1 ( 3 Initial Baseline)] Oxygen Flow Rate (L/min) 2 Oxygen Delivery Method [1 ( Nasal Cannula Initial Baseline)] Oxygen Delivery Method Room Air Weight: 107.6 kg Body Mass Index (BMI) 41.8 Intake & Output: Intake and Output for Last 24 Hours 09/23/22 09/24/22 09/25/22 23:59 23:59 23:59 Intake Total 940 / 940 860 / 860 200 / 200 Output Total 1400 / 1400 1950 / 1950 200 / 200 Balance -460 / -460 -1090 / -1090 0 / 0 Medical Nutrition Assessment Dietitian: Malnutrition Criteria Met Start: 09/16/22 14:35 Freq: Status: Active Protocol: Document 09/22/22 15:04 RMA (Rec: 09/22/22 15:04 RMA [id number]) Nutrition Malnutrition Evidence of Malnutrition Exists Yes Malnutrition (severe): Acute Illness/Injury Evidenced By Suboptimal Energy Intake ( Severe),Weight Loss (Severe) Intake Problem Inadequate Oral Intake Etiology related to altered GI function /obstruction Signs/Symptoms as evidenced by NPO status X day #4 Status Resolved Problem Clinical Problem Acute Disease or Injury Related Malnutrition Etiology Severe protein-calorie malnutrition in the context of acute disease related to altered GI function and inadequate oral intake Signs/Symptoms as evidenced by 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 Pt does not want ONS when offered today. ONS as needed when diet advanced from full liquids. Lab / Micro Data Result Diagrams: 09/25/22 05:35 09/25/22 05:35 Labs: Laboratory Results - last 24 hr 09/24/22 05:30: Lactate Dehydrogenase 273 H, Total Protein 5.6 L, Globulin 4.0, Albumin/Globulin Ratio 0.4 L 09/24/22 05:30: Prealbumin 6.3 L 09/24/22 11:28: POC Glucose 248 H 09/24/22 16:32: POC Glucose 250 H 09/24/22 21:09: POC Glucose 207 H 09/25/22 05:35: WBC 8.1, RBC 3.80 L, Hgb 9.3 L, Hct 32.4 L, MCV 85.3, MCH 24.5 L, MCHC 28.7 L, RDW Std Deviation 61.1 H, RDW Coeff of Naren 19.9 H, Plt Count 407, MPV 11.5, Immature Gran % (Auto) 0.500, Neut % (Auto) 58.1, Lymph % (Auto) 24.0, [place] % (Auto) 9.1, Eos % (Auto) 8.1 H, Baso % (Auto) 0.2, Absolute Neuts (auto) 4.7, Absolute Lymphs (auto) 1.95, Nucleated RBC % 0 09/25/22 05:35: Sodium 143, Potassium 3.4 L, Chloride 103, Carbon Dioxide 37.0 H, Anion Gap 3 L, BUN 5 L, Creatinine 0.46 L, Estim Creat Clear Calc 37.45, Est GFR (MDRD) Af Amer 167, Est GFR (MDRD) Non-Af 138, BUN/Creatinine Ratio 10.8, Glucose 186 H, Calcium 8.9 09/25/22 06:35: POC Glucose 160 H Physical Exam Const alert and no apparent distress Constitutional Narrative: Oriented HEENT normocephalic and head/scalp atraumatic Eyes Eyes Narrative: EOM grossly intact, anicteric Neck supple Resp normal respiratory effort Resp Narrative: Difficult to auscultate secondary to body habitus, diminished at the bases Cardio regular rate and regular rhythm GI GI Narrative: Protuberant, very mild tender to palpation diffusely, no rebound, guarding, rigidity Extremity Extremity Narrative: SCDs in place Neuro moves all extremities Neuro Narrative: No overt focal deficits appreciated Psych Psych Narrative: Cooperative Assessment & Plan Assessment/Plan (1) Large bowel obstruction: (2) Colonic mass: (3) Body mass index 45.0-49.9, adult: (4) Iron deficiency anemia: PLAN: Plan 82-year-old female with history of diabetes type 2, microcytic anemia, and TIA who was admitted 09/15 with right upper quadrant abdominal pain. She had recently been discharged 09/10 after hospitalization for microcytic anemia and was transfused 2 units of packed red blood cells during that admission. Had seen Dr. Robert with GI the day prior to this admission and colonoscopy was planned but she got worse and presented to the hospital. In ED CT scan showed 55 x 39 mm apical core type lesion around the hepatic flexure of the colon causing obstruction. Dr. Rivera had been contacted in the emergency room and she was taken to surgery 09/16 for a open right hemicolectomy which he tolerated well and was taken to ICU intubated in stable condition. #Colonic obstruction secondary to colonic mass Had right hemicolectomy 09/16 Improving, on ice chips and n.p.o., further advancing diet per surgery recommendations Given still not taking p.o. we will continue to monitor with supportive care Likely to TCU once stable 09/21/2022: Continues to have some general abdominal pain. Surgery following. Still has only had ice chips, awaiting tolerating further p.o. prior to deeming stable for transfer to TCU. 09/22/2022: Tolerating clears well, denies nausea vomiting. Still is not had a bowel movement. Does not have wound VAC in place on abdomen. Surgery following. Once tolerating diet and progresses further plan will be the TCU 09/23/22: Still on clears. Had CT obtained by surgery yesterday due to amount of drainage from surgical site. There are bilateral pleural effusions and bibasilar infiltrates and/or atelectasis right greater than left. Status post anastomoses at the level of the proximal transverse colon. 2 cm hypodense nodule in the right adrenal gland. Findings suggestive of small gallstones. Postop changes. Continue to await pathology of colonic mass, concern for malignancy. Appreciate surgery recommendations and management. 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 All margins involved by carcinoma, high-grade dysplasia and/or adenoma. 13 of 13 lymph nodes negative for metastatic carcinoma. Discussed with Clarice Neha, will consult oncology. Additionally has moderate right pleural effusion and will order IR guided thoracentesis for fluid sample. 09/25/2022: IR did not feel there was enough fluid to tap pleural effusion. Additionally after discussing with surgery outpatient oncology follow-up would be reasonable. Continues to have drainage, surgery following, possibly to TCU next week after decreased drainage. Diet has been advanced. Seems to be tolerating #Acute hypoxic respiratory failure following surgery Improving, ICU had been following but will now sign off On nasal cannula 09/21/2022: Has been fairly consistently 95% on 2 L. 09/22: Stable but does have elevated bicarb, will obtain VBG to assess for CO2 retention 09/23: VBG and labs suggestive of metabolic alkalosis with respiratory acidosis that appeared at least in part compensatory as VBG was alkalotic, suspect possible contraction alkalosis given poor p.o. intake and not receiving fluids with respiratory compensation as well as a component of obesity hypoventilation. Chest CT shows bilateral pleural effusions, worse on the right than the left but she is continuing to improve respiratory status brunner. 09/24: Respiratory status has been fairly stable, with a moderate effusion however in light of new cancer diagnosis we will order IR guided Thora to get fluid sample 09/25: Stable #Iron deficiency anemia secondary to chronic GI blood loss from colon mass, likely malignant Monitor hemoglobin, has been stable #Type 2 diabetes mellitus Sliding scale insulin #DVT ppx: Lovenox Marcelina Jordan MD Charges/Coding Visit Charges Inpatient E&M: 97242 Subs Hosp L2
[2022-09-25] MEDS: Enoxaparin 40 MG/0.4 ML Syringe SC (08:47)
[2022-09-25] MEDS: Potassium Chloride Oral Tablet 20 MEQ 40 MEQ PO (08:47)
[2022-09-25] MEDS: Glucerna Shake 120 ML LIQUID PO ×2 (08:49→21:45)
[2022-09-25] MEDS: Clopidogrel Bisulfate 75 MG Tablet PO (08:51)
--- NOTE | 2022-09-25 10:46 | PCM.PN.SRG ---
Subjective Subjective patient complains of sore bottom but otherwise she appears well Objective Data Objective Data Vital Signs: Vital Signs Temp Pulse Resp BP Pulse Ox O2 Del Method O2 Flow Rate 97.6 F L 79 16 149/58 H 98 Room Air 2 09/25/22 07:42 09/25/22 07:42 09/25/22 07:42 09/25/22 07:42 09/25/22 07:42 09/25/22 07:42 09/25/22 03:48 FiO2 30 09/17/22 07:00 Oxygen Flow Rate (L/min) [1 ( 3 Initial Baseline)] Oxygen Flow Rate (L/min) 2 Oxygen Delivery Method [1 ( Nasal Cannula Initial Baseline)] Oxygen Delivery Method Room Air Weight: 107.6 kg Body Mass Index (BMI) 41.8 Intake & Output: Intake and Output for Last 24 Hours 09/23/22 09/24/22 09/25/22 23:59 23:59 23:59 Intake Total 940 / 940 860 / 860 200 / 200 Output Total 1400 / 1400 1950 / 1950 200 / 200 Balance -460 / -460 -1090 / -1090 0 / 0 Medical Nutrition Assessment Dietitian: Malnutrition Criteria Met Start: 09/16/22 14:35 Freq: Status: Active Protocol: Document 09/22/22 15:04 RMA (Rec: 09/22/22 15:04 RMA [id number]) Nutrition Malnutrition Evidence of Malnutrition Exists Yes Malnutrition (severe): Acute Illness/Injury Evidenced By Suboptimal Energy Intake ( Severe),Weight Loss (Severe) Intake Problem Inadequate Oral Intake Etiology related to altered GI function /obstruction Signs/Symptoms as evidenced by NPO status X day #4 Status Resolved Problem Clinical Problem Acute Disease or Injury Related Malnutrition Etiology Severe protein-calorie malnutrition in the context of acute disease related to altered GI function and inadequate oral intake Signs/Symptoms as evidenced by 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 Pt does not want ONS when offered today. ONS as needed when diet advanced from full liquids. Lab / Micro Data Attestation: I reviewed the patient's lab results. Result Diagrams: 09/25/22 05:35 09/25/22 05:35 Labs: Laboratory Results - last 24 hr 09/24/22 05:30: Prealbumin 6.3 L 09/24/22 11:28: POC Glucose 248 H 09/24/22 16:32: POC Glucose 250 H 09/24/22 21:09: POC Glucose 207 H 09/25/22 05:35: WBC 8.1, RBC 3.80 L, Hgb 9.3 L, Hct 32.4 L, MCV 85.3, MCH 24.5 L, MCHC 28.7 L, RDW Std Deviation 61.1 H, RDW Coeff of Naren 19.9 H, Plt Count 407, MPV 11.5, Immature Gran % (Auto) 0.500, Neut % (Auto) 58.1, Lymph % (Auto) 24.0, [place] % (Auto) 9.1, Eos % (Auto) 8.1 H, Baso % (Auto) 0.2, Absolute Neuts (auto) 4.7, Absolute Lymphs (auto) 1.95, Nucleated RBC % 0 09/25/22 05:35: Sodium 143, Potassium 3.4 L, Chloride 103, Carbon Dioxide 37.0 H, Anion Gap 3 L, BUN 5 L, Creatinine 0.46 L, Estim Creat Clear Calc 37.45, Est GFR (MDRD) Af Amer 167, Est GFR (MDRD) Non-Af 138, BUN/Creatinine Ratio 10.8, Glucose 186 H, Calcium 8.9 09/25/22 06:35: POC Glucose 160 H Physical Exam Const alert and oriented x3 General Appearance: cooperative Neck supple Resp normal respiratory effort Effort and Inspection: able to speak in complete sentences GI GI Narrative: abdomen is soft and benign dressing intact Assessment & Plan Assessment/Plan (1) S/P right hemicolectomy: PLAN: continue present therapy PLAN: Plan see above
[2022-09-25 11:35] VITALS: O2SAT 90
[2022-09-25 11:37] VITALS: BP 132/48; PULSE 84; RESP 16; TEMP 36.6; O2SAT 93
[2022-09-25 11:46] LABS: Bedside Glucose 237 mg/dL (74-106)
[2022-09-25 14:49] VITALS: BP 172/68; PULSE 93; RESP 16; TEMP 36.8; O2SAT 95
[2022-09-25 16:46] LABS: Bedside Glucose 272 mg/dL (74-106)
[2022-09-25 20:50] VITALS: BP 146/64; PULSE 83; RESP 16; TEMP 36.7; O2SAT 94
[2022-09-25] MEDS: Atorvastatin Calcium 40 MG Tablet PO (21:45)
[2022-09-25 22:15] LABS: Bedside Glucose 245 mg/dL (74-106)
[2022-09-26] MEDS: Insulin Lispro 100 UNIT/ML INSULN.PEN SC ×4 (06:55→22:38)
[2022-09-26] MEDS: Nystatin Powder 15gm Bottle 1 APPLIC TOPICAL ×3 (06:56→22:39)
[2022-09-26 07:04] VITALS: O2SAT 94
[2022-09-26 07:23] LABS: Absolute Lymphocyte Count 1.99 X10^3/uL (0.83-4.51); Absolute Neutrophil Count 7.2 X10^3/uL (2.0-7.7); Basophil# 0.04 X10^3/uL; Basophil% 0.4 % (0-1); Eosinophil# 0.62 X10^3/uL; Eosinophils% 5.7 % (0-5); Hematocrit 33.5 % (37-47); Hemoglobin 9.6 g/dL (12.0-15.0); Lymphocyte # 1.99 X10^3/ul (0.83-4.51); Lymphocyte % 18.2 % (19-41); Mean Corp Hgb Conc 28.7 g/dL (32-36); Mean Corpuscular Hgb 24.4 pg (27.0-32.0); Mean Platelet Vol. 11.5 fl (6.2-12.0); Monocyte# 1.06 X10^3/uL; Monocyte% 9.7 % (0-10); NRBC Flagged by Analyzer 0 % (0-5); Neutrophil # 7.19 X10^3/uL (2.7-7.7); Neutrophil % 65.5 % (47-70); POSITIVE MORPHOLOGY YES; Platelet Count 427 K/mm3 (150-450); RBC Distribution Width CV 20.1 % (11.6-14.6); RBC Distribution Width SD 61.1 fl (35.1-43.9); Red Blood Count 3.94 M/mm3 (4.2-5.4)
[2022-09-26 07:31] LABS: Differential Indicated SCAN CRITERIA MET
[2022-09-26 07:39] LABS: Anion Gap 4 (5-15); BUN 6 mg/dL (7-18); BUN/Creat Ratio 11.5 RATIO (10-20); Calcium,Total 8.7 mg/dL (8.5-10.1); Chloride 103 mmol/L (98-107); Creatinine, Serum 0.52 mg/dL (0.55-1.02); EST Glomerular Filtration Rate 120 mL/min (>60); Est Glom Filt Rate - Afr Amer 145 mL/min (>60); Estimated Creatinine Clearance 37.45 ml/min; Glucose 181 mg/dL (74-106); Potassium 3.7 mmol/L (3.5-5.1); Sodium Level 142 mmol/L (136-145)
[2022-09-26 07:41] LABS: Bedside Glucose 170 mg/dL (74-106)
[2022-09-26 08:04] VITALS: BP 150/62; PULSE 82; RESP 16; TEMP 36.8; O2SAT 95
[2022-09-26] MEDS: Enoxaparin 40 MG/0.4 ML Syringe SC (08:51)
[2022-09-26] MEDS: Clopidogrel Bisulfate 75 MG Tablet PO (08:51)
--- NOTE | 2022-09-26 09:22 | PN.SURG_ITS ---
Subjective Subjective patient unchanged, tolerated scrambled eggs this morning Objective Data Objective Data Vital Signs: Vital Signs Temp Pulse Resp BP Pulse Ox O2 Del Method O2 Flow Rate 98.2 F 82 16 150/62 H 95 Room Air 2 09/26/22 08:04 09/26/22 08:04 09/26/22 08:04 09/26/22 08:04 09/26/22 08:04 09/26/22 08:04 09/25/22 03:48 FiO2 30 09/17/22 07:00 Oxygen Flow Rate (L/min) [1 ( 3 Initial Baseline)] Oxygen Flow Rate (L/min) 2 Oxygen Delivery Method [1 ( Nasal Cannula Initial Baseline)] Oxygen Delivery Method Room Air Weight: 106.6 kg Body Mass Index (BMI) 41.8 Intake & Output: Intake and Output for Last 24 Hours 09/24/22 09/25/22 09/26/22 23:59 23:59 22:59 Intake Total 860 / 860 1050 / 1050 Output Total 1950 / 1950 200 / 200 Balance -1090 / -1090 850 / 850 Medical Nutrition Assessment Dietitian: Malnutrition Criteria Met Start: 09/16/22 14:35 Freq: Status: Active Protocol: Document 09/22/22 15:04 RMA (Rec: 09/22/22 15:04 RMA [id number]) Nutrition Malnutrition Evidence of Malnutrition Exists Yes Malnutrition (severe): Acute Illness/Injury Evidenced By Suboptimal Energy Intake ( Severe),Weight Loss (Severe) Intake Problem Inadequate Oral Intake Etiology related to altered GI function /obstruction Signs/Symptoms as evidenced by NPO status X day #4 Status Resolved Problem Clinical Problem Acute Disease or Injury Related Malnutrition Etiology Severe protein-calorie malnutrition in the context of acute disease related to altered GI function and inadequate oral intake Signs/Symptoms as evidenced by 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 Pt does not want ONS when offered today. ONS as needed when diet advanced from full liquids. Lab / Micro Data Result Diagrams: 09/26/22 06:10 09/26/22 06:10 Labs: Laboratory Results - last 24 hr 09/25/22 11:22: POC Glucose 237 H 09/25/22 16:11: POC Glucose 272 H 09/25/22 21:47: POC Glucose 245 H 09/26/22 06:10: WBC 11.0, RBC 3.94 L, Hgb 9.6 L, Hct 33.5 L, MCV 85.0, MCH 24.4 L, MCHC 28.7 L, RDW Std Deviation 61.1 H, RDW Coeff of Naren 20.1 H, Plt Count 427, MPV 11.5, Immature Gran % (Auto) 0.500, Neut % (Auto) 65.5, Lymph % (Auto) 18.2 L, [place] % (Auto) 9.7, Eos % (Auto) 5.7 H, Baso % (Auto) 0.4, Absolute Neuts (auto) 7.2, Absolute Lymphs (auto) 1.99, Nucleated RBC % 0 09/26/22 06:10: Sodium 142, Potassium 3.7, Chloride 103, Carbon Dioxide 35.0 H, Anion Gap 4 L, BUN 6 L, Creatinine 0.52 L, Estim Creat Clear Calc 37.45, Est GFR (MDRD) Af Amer 145, Est GFR (MDRD) Non-Af 120, BUN/Creatinine Ratio 11.5, Glucose 181 H, Calcium 8.7 09/26/22 06:47: POC Glucose 170 H Micro: Microbiology 09/25/22 09:35 Stool C. difficile DNA Amplification - Final Physical Exam Const oriented x3 Resp normal respiratory effort Cardio regular rate GI GI Narrative: abdomen is soft and benign wound appears intact/clean/dry Assessment & Plan Assessment/Plan (1) S/P right hemicolectomy: PLAN: continue present therapy PLAN: Plan see above
[2022-09-26 09:51] LABS: Anisocytosis 2+; Differential Comment SCANNED; Macrocytosis 1+; Microcytosis 1+
[2022-09-26 11:39] VITALS: BP 159/60; PULSE 75; RESP 16; TEMP 36.4; O2SAT 96
[2022-09-26 11:46] LABS: Bedside Glucose 205 mg/dL (74-106)
--- NOTE | 2022-09-26 14:23 | PN.HOSP_ITS ---
Subjective Subjective DOS: 09/26/2022 CC: Follow-up abdominal pain Reports she continues to feel better than she had, minimal abdominal pain, no nausea, no changes in her breathing, no chest pain reported. Objective Data Objective Data Vital Signs: Vital Signs Temp Pulse Resp BP Pulse Ox O2 Del Method O2 Flow Rate 97.5 F L 75 16 159/60 H 96 Room Air 2 09/26/22 11:39 09/26/22 11:39 09/26/22 11:39 09/26/22 11:39 09/26/22 11:39 09/26/22 12:55 09/25/22 03:48 FiO2 30 09/17/22 07:00 Oxygen Flow Rate (L/min) [1 ( 3 Initial Baseline)] Oxygen Flow Rate (L/min) 2 Oxygen Delivery Method [1 ( Nasal Cannula Initial Baseline)] Oxygen Delivery Method Room Air Weight: 106.6 kg Body Mass Index (BMI) 41.8 Intake & Output: Intake and Output for Last 24 Hours 09/24/22 09/25/22 09/26/22 23:59 23:59 22:59 Intake Total 860 / 860 1050 / 1050 450 / 450 Output Total 1950 / 1950 200 / 200 Balance -1090 / -1090 850 / 850 450 / 450 Medical Nutrition Assessment Dietitian: Malnutrition Criteria Met Start: 09/16/22 14:35 Freq: Status: Active Protocol: Document 09/22/22 15:04 RMA (Rec: 09/22/22 15:04 RMA [id number]) Nutrition Malnutrition Evidence of Malnutrition Exists Yes Malnutrition (severe): Acute Illness/Injury Evidenced By Suboptimal Energy Intake ( Severe),Weight Loss (Severe) Intake Problem Inadequate Oral Intake Etiology related to altered GI function /obstruction Signs/Symptoms as evidenced by NPO status X day #4 Status Resolved Problem Clinical Problem Acute Disease or Injury Related Malnutrition Etiology Severe protein-calorie malnutrition in the context of acute disease related to altered GI function and inadequate oral intake Signs/Symptoms as evidenced by 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 Pt does not want ONS when offered today. ONS as needed when diet advanced from full liquids. Lab / Micro Data Result Diagrams: 09/26/22 06:10 09/26/22 06:10 Labs: Laboratory Results - last 24 hr 09/25/22 16:11: POC Glucose 272 H 09/25/22 21:47: POC Glucose 245 H 09/26/22 06:10: WBC 11.0, RBC 3.94 L, Hgb 9.6 L, Hct 33.5 L, MCV 85.0, MCH 24.4 L, MCHC 28.7 L, RDW Std Deviation 61.1 H, RDW Coeff of Naren 20.1 H, Plt Count 427, MPV 11.5, Immature Gran % (Auto) 0.500, Neut % (Auto) 65.5, Lymph % (Auto) 18.2 L, [place] % (Auto) 9.7, Eos % (Auto) 5.7 H, Baso % (Auto) 0.4, Absolute Neuts (auto) 7.2, Absolute Lymphs (auto) 1.99, Nucleated RBC % 0, Differential Comment SCANNED, Anisocytosis 2+, Microcytosis 1+, Macrocytosis 1+ 09/26/22 06:10: Sodium 142, Potassium 3.7, Chloride 103, Carbon Dioxide 35.0 H, Anion Gap 4 L, BUN 6 L, Creatinine 0.52 L, Estim Creat Clear Calc 37.45, Est GFR (MDRD) Af Amer 145, Est GFR (MDRD) Non-Af 120, BUN/Creatinine Ratio 11.5, Glucose 181 H, Calcium 8.7 09/26/22 06:47: POC Glucose 170 H 09/26/22 11:16: POC Glucose 205 H Micro: Microbiology 09/25/22 09:35 Stool C. difficile DNA Amplification - Final Physical Exam Const alert and no apparent distress Constitutional Narrative: Oriented HEENT normocephalic and head/scalp atraumatic Eyes Eyes Narrative: EOM grossly intact, anicteric Neck supple Resp normal respiratory effort Resp Narrative: Difficult to auscultate secondary to body habitus, diminished at the bases Cardio regular rate and regular rhythm GI GI Narrative: Protuberant, very mild tender to palpation diffusely, no rebound, guarding, rigidity Extremity Extremity Narrative: SCDs in place Neuro moves all extremities Neuro Narrative: No overt focal deficits appreciated Psych Psych Narrative: Cooperative Assessment & Plan Assessment/Plan (1) Large bowel obstruction: (2) Colonic mass: (3) Body mass index 45.0-49.9, adult: (4) Iron deficiency anemia: PLAN: Plan 82-year-old female with history of diabetes type 2, microcytic anemia, and TIA who was admitted 09/15 with right upper quadrant abdominal pain. She had recently been discharged 09/10 after hospitalization for microcytic anemia and was transfused 2 units of packed red blood cells during that admission. Had seen Dr. Robert with GI the day prior to this admission and colonoscopy was planned but she got worse and presented to the hospital. In ED CT scan showed 55 x 39 mm apical core type lesion around the hepatic flexure of the colon causing obstruction. Dr. Rivera had been contacted in the emergency room and she was taken to surgery 09/16 for a open right hemicolectomy which he tolerated well and was taken to ICU intubated in stable condition. #Colonic obstruction secondary to colonic mass Had right hemicolectomy 09/16 Improving, on ice chips and n.p.o., further advancing diet per surgery recommendations Given still not taking p.o. we will continue to monitor with supportive care Likely to TCU once stable 09/21/2022: Continues to have some general abdominal pain. Surgery following. Still has only had ice chips, awaiting tolerating further p.o. prior to deeming stable for transfer to TCU. 09/22/2022: Tolerating clears well, denies nausea vomiting. Still is not had a bowel movement. Does not have wound VAC in place on abdomen. Surgery following. Once tolerating diet and progresses further plan will be the TCU 09/23/22: Still on clears. Had CT obtained by surgery yesterday due to amount of drainage from surgical site. There are bilateral pleural effusions and bibasilar infiltrates and/or atelectasis right greater than left. Status post anastomoses at the level of the proximal transverse colon. 2 cm hypodense nodule in the right adrenal gland. Findings suggestive of small gallstones. Postop changes. Continue to await pathology of colonic mass, concern for malignancy. Appreciate surgery recommendations and management. 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 All margins involved by carcinoma, high-grade dysplasia and/or adenoma. 13 of 13 l ymph nodes negative for metastatic carcinoma. Discussed with Clarice Neha, will consult oncology. Additionally has moderate right pleural effusion and will order IR guided thoracentesis for fluid sample. 09/25/2022: IR did not feel there was enough fluid to tap pleural effusion. Additionally after discussing with surgery outpatient oncology follow-up would be reasonable. Continues to have drainage, surgery following, possibly to TCU next week after decreased drainage. Diet has been advanced. Seems to be tolerating 09/26: Tolerating diet progressively better. Spoke with Dr. Rivera at the end of last week, planned to stay through the weekend due to the continued significant amount of drainage from wound. Possible TCU early this week pending progress. Path does appear to be malignancy with clear margins and no lymph nodes, will need outpatient follow-up with oncology #Acute hypoxic respiratory failure following surgery Improving, ICU had been following but will now sign off On nasal cannula 09/21/2022: Has been fairly consistently 95% on 2 L. 09/22: Stable but does have elevated bicarb, will obtain VBG to assess for CO2 retention 09/23: VBG and labs suggestive of metabolic alkalosis with respiratory acidosis that appeared at least in part compensatory as VBG was alkalotic, suspect possible contraction alkalosis given poor p.o. intake and not receiving fluids with respiratory compensation as well as a component of obesity hypoventilation. Chest CT shows bilateral pleural effusions, worse on the right than the left but she is continuing to improve respiratory status brunner. 09/24: Respiratory status has been fairly stable, with a moderate effusion however in light of new cancer diagnosis we will order IR guided Thora to get fluid sample 09/25: Stable #Iron deficiency anemia secondary to chronic GI blood loss from colon mass, likely malignant Monitor hemoglobin, has been stable #Type 2 diabetes mellitus Sliding scale insulin #DVT ppx: Maria Esther Jordan MD Charges/Coding Visit Charges Inpatient E&M: 22813 Subs Hosp L2
[2022-09-26 15:19] VITALS: BP 146/85; PULSE 79; RESP 16; TEMP 36.8; O2SAT 95
[2022-09-26 16:05] LABS: Bedside Glucose 204 mg/dL (74-106)
[2022-09-26 21:20] VITALS: BP 166/53; PULSE 78; RESP 18; TEMP 36.6; O2SAT 93
[2022-09-26] MEDS: Glucerna Shake 120 ML LIQUID PO (22:39)
[2022-09-26] MEDS: Atorvastatin Calcium 40 MG Tablet PO (22:39)
[2022-09-27 00:21] LABS: Bedside Glucose 221 mg/dL (74-106)
[2022-09-27 03:00] VITALS: BP 156/55; PULSE 92; RESP 16; TEMP 36.6; O2SAT 97
[2022-09-27 06:03] LABS: Absolute Lymphocyte Count 1.99 X10^3/uL (0.83-4.51); Absolute Neutrophil Count 7.1 X10^3/uL (2.0-7.7); Basophil# 0.04 X10^3/uL; Basophil% 0.4 % (0-1); Eosinophil# 0.68 X10^3/uL; Eosinophils% 6.2 % (0-5); Hematocrit 32.5 % (37-47); Hemoglobin 9.5 g/dL (12.0-15.0); Lymphocyte # 1.99 X10^3/ul (0.83-4.51); Lymphocyte % 18.3 % (19-41); Mean Corp Hgb Conc 29.2 g/dL (32-36); Mean Corpuscular Hgb 24.7 pg (27.0-32.0); Mean Corpuscular Volume 84.4 fL (81-99); Mean Platelet Vol. 11.4 fl (6.2-12.0); Monocyte# 1.01 X10^3/uL; Monocyte% 9.3 % (0-10); NRBC Flagged by Analyzer 0 % (0-5); Neutrophil # 7.11 X10^3/uL (2.7-7.7); Neutrophil % 65.2 % (47-70); POSITIVE MORPHOLOGY YES; Platelet Count 404 K/mm3 (150-450); RBC Distribution Width CV 20.1 % (11.6-14.6); RBC Distribution Width SD 61.5 fl (35.1-43.9); Red Blood Count 3.85 M/mm3 (4.2-5.4); White Blood Count 10.9 K/mm3 (4.4-11.0)
[2022-09-27 06:24] LABS: Anion Gap 6 (5-15); BUN 6 mg/dL (7-18); BUN/Creat Ratio 11.3 RATIO (10-20); Calcium,Total 8.5 mg/dL (8.5-10.1); Chloride 105 mmol/L (98-107); Creatinine, Serum 0.53 mg/dL (0.55-1.02); EST Glomerular Filtration Rate 117 mL/min (>60); Est Glom Filt Rate - Afr Amer 142 mL/min (>60); Estimated Creatinine Clearance 37.45 ml/min; Glucose 188 mg/dL (74-106); Potassium 3.3 mmol/L (3.5-5.1); Sodium Level 143 mmol/L (136-145)
[2022-09-27 06:37] LABS: Differential Indicated SCAN CRITERIA MET
[2022-09-27] MEDS: Insulin Lispro 100 UNIT/ML INSULN.PEN SC ×4 (06:38→20:43)
[2022-09-27] MEDS: Nystatin Powder 15gm Bottle 1 APPLIC TOPICAL ×3 (06:39→20:43)
[2022-09-27 07:06] LABS: Bedside Glucose 173 mg/dL (74-106)
[2022-09-27 07:50] VITALS: BP 119/41; PULSE 81; RESP 20; TEMP 36.7; O2SAT 92; O2SAT 93
[2022-09-27 07:50] LABS: Anisocytosis 2+
[2022-09-27 07:57] VITALS: O2SAT 95
[2022-09-27] MEDS: Enoxaparin 40 MG/0.4 ML Syringe SC (07:57)
[2022-09-27] MEDS: Clopidogrel Bisulfate 75 MG Tablet PO (07:57)
--- NOTE | 2022-09-27 08:00 | PN.SURG_ITS ---
Subjective Subjective Patient tolerating diet and having multiple bowel movements Danilo and through the weekend. Objective Data Objective Data Vital Signs: Vital Signs Temp Pulse Resp BP Pulse Ox O2 Del Method O2 Flow Rate 98.1 F 81 20 H 119/41 L 95 Room Air 2 09/27/22 07:50 09/27/22 07:50 09/27/22 07:50 09/27/22 07:50 09/27/22 07:57 09/27/22 07:57 09/27/22 03:00 FiO2 30 09/17/22 07:00 Oxygen Flow Rate (L/min) [1 ( 3 Initial Baseline)] Oxygen Flow Rate (L/min) 2 Oxygen Delivery Method [1 ( Nasal Cannula Initial Baseline)] Oxygen Delivery Method Room Air Weight: 234 lb 9.149 oz Body Mass Index (BMI) 41.8 Intake & Output: Intake and Output for Last 24 Hours 09/26/22 09/26/22 09/27/22 00:59 23:59 23:59 Intake Total Output Total 850 / 850 Balance -850 / -850 Medical Nutrition Assessment Dietitian: Malnutrition Criteria Met Start: 09/16/22 14:35 Freq: Status: Active Protocol: Document 09/22/22 15:04 RMA (Rec: 09/22/22 15:04 RMA [id number]) Nutrition Malnutrition Evidence of Malnutrition Exists Yes Malnutrition (severe): Acute Illness/Injury Evidenced By Suboptimal Energy Intake ( Severe),Weight Loss (Severe) Intake Problem Inadequate Oral Intake Etiology related to altered GI function /obstruction Signs/Symptoms as evidenced by NPO status X day #4 Status Resolved Problem Clinical Problem Acute Disease or Injury Related Malnutrition Etiology Severe protein-calorie malnutrition in the context of acute disease related to altered GI function and inadequate oral intake Signs/Symptoms as evidenced by poor PO x past 1-2 weeks fishing 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 Pt does not want ONS when offered today. ONS as needed when diet advanced from full liquids. Lab / Micro Data Result Diagrams: 09/27/22 04:52 09/27/22 04:52 Labs: Laboratory Results - last 24 hr 09/26/22 06:10: Differential Comment SCANNED, Anisocytosis 2+, Microcytosis 1+, Macrocytosis 1+ 09/26/22 11:16: POC Glucose 205 H 09/26/22 15:45: POC Glucose 204 H 09/26/22 22:36: POC Glucose 221 H 09/27/22 04:52: WBC 10.9, RBC 3.85 L, Hgb 9.5 L, Hct 32.5 L, MCV 84.4, MCH 24.7 L, MCHC 29.2 L, RDW Std Deviation 61.5 H, RDW Coeff of Naren 20.1 H, Plt Count 404, MPV 11.4, Immature Gran % (Auto) 0.600, Neut % (Auto) 65.2, Lymph % (Auto) 18.3 L, [place] % (Auto) 9.3, Eos % (Auto) 6.2 H, Baso % (Auto) 0.4, Absolute Neuts (auto) 7.1, Absolute Lymphs (auto) 1.99, Nucleated RBC % 0, Anisocytosis 2+ 09/27/22 04:52: Sodium 143, Potassium 3.3 L, Chloride 105, Carbon Dioxide 32.0, Anion Gap 6, BUN 6 L, Creatinine 0.53 L, Estim Creat Clear Calc 37.45, Est GFR (MDRD) Af Amer 142, Est GFR (MDRD) Non-Af 117, BUN/Creatinine Ratio 11.3, Glucose 188 H, Calcium 8.5 09/27/22 06:35: POC Glucose 173 H Micro: Microbiology 09/25/22 09:35 Stool C. difficile DNA Amplification - Final Physical Exam Const no apparent distress Resp normal respiratory effort Cardio regular rate GI GI Narrative: Soft, nondistended, tender near incision. There is some erythema to the upper part of the incision unsure if this is due to the wet dressings laying on top of this area. The remaining reena superior to the previous remove reena were removed from the superior incision. Wet-to-dry dressings were placed. Assessment & Plan Assessment/Plan (1) S/P right hemicolectomy: (2) Colonic mass: (3) Acute respiratory failure with hypoxia: PLAN: Plan Patient is tolerating regular diet as well as glucerna. Did remove patient's superior reena and do wet-to-dry dressings. We will check to see how much fluid is leaking throughout the day. Would plan on pat ient going back to TCU when ready hopefully soon. Out of bed to chair Maria Esther. Appreciate hospitalist assistance with medical management. Deanna Rivera M.D. Pager: [phone] [facility] [address] [place] [address], [address] [place] [address] Office: [phone]
--- NOTE | 2022-09-27 08:18 | WOUNDNOTE ---
wound photo: abdomen
[2022-09-27 08:39] VITALS: O2SAT 93
[2022-09-27] MEDS: Potassium Chloride Oral Tablet 20 MEQ 60 MEQ PO (11:32)
[2022-09-27 11:56] LABS: Bedside Glucose 232 mg/dL (74-106)
--- NOTE | 2022-09-27 12:04 | CASEMGMT ---
Social Work SW made aware by Dr. Garcia that pt is medically ready. SW daxed information to request insurance authorization to [employer] at this time. SW also spoke to pt and pt daughter to give update on plan to inform insurance authorization has been started and the plan is to await decision. Pt and family voiced understanding. PLAN: TCU, pending precert DONA Matson
[2022-09-27 13:12] LABS: AST(SGOT) 19 U/L (15-37); Alanine Aminotransfer ALT/SGPT 15 U/L (13-56); Albumin, Serum 1.9 g/dL (3.2-5.0); Alkaline Phosphatase 57 U/L (45-117); Bilirubin, Direct 0.13 mg/dL (0.00-0.30); Globulin 4.1 g/dL (2.2-4.2)
--- NOTE | 2022-09-27 13:41 | PN.HOSP_ITS ---
Subjective Subjective Follow-up in large bowel obstruction/colon CA: Patient was seen and examined. She has been tolerating her diet. Last moved her bowels yesterday evening. She has been passing gas. She has been having discharge from her wound. Discussed with general surgery, will continue with frequent wound dressings Objective Data Objective Data Vital Signs: Vital Signs Temp Pulse Resp BP Pulse Ox O2 Del Method O2 Flow Rate 98.1 F 81 20 H 119/41 L 93 Room Air 2 09/27/22 07:50 09/27/22 07:50 09/27/22 07:50 09/27/22 07:50 09/27/22 08:39 09/27/22 07:57 09/27/22 03:00 FiO2 30 09/17/22 07:00 Oxygen Flow Rate (L/min) [1 ( 3 Initial Baseline)] Oxygen Flow Rate (L/min) 2 Oxygen Delivery Method [1 ( Nasal Cannula Initial Baseline)] Oxygen Delivery Method Room Air Weight: 106.4 kg Body Mass Index (BMI) 41.8 Intake & Output: Intake and Output for Last 24 Hours 09/26/22 09/26/22 09/27/22 00:59 23:59 23:59 Intake Total Output Total 850 / 850 Balance -850 / -850 Medical Nutrition Assessment Dietitian: Malnutrition Criteria Met Start: 09/16/22 14:35 Freq: Status: Active Protocol: Document 09/22/22 15:04 RMA (Rec: 09/22/22 15:04 RMA [id number]) Nutrition Malnutrition Evidence of Malnutrition Exists Yes Malnutrition (severe): Acute Illness/Injury Evidenced By Suboptimal Energy Intake ( Severe),Weight Loss (Severe) Intake Problem Inadequate Oral Intake Etiology related to altered GI function /obstruction Signs/Symptoms as evidenced by NPO status X day #4 Status Resolved Problem Clinical Problem Acute Disease or Injury Related Malnutrition Etiology Severe protein-calorie malnutrition in the context of acute disease related to altered GI function and inadequate oral intake Signs/Symptoms as evidenced by poor PO x past 1-2 weeks mine captain meeting less than 50% estimated nutrition needs, weight loss~5-6% x past 1-2 weeks mine captain and 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 Pt does not want ONS when offered today. ONS as needed when diet advanced from full liquids. Lab / Micro Data Result Diagrams: 09/27/22 04:52 09/27/22 04:52 Labs: Laboratory Results - last 24 hr 09/26/22 15:45: POC Glucose 204 H 09/26/22 22:36: POC Glucose 221 H 09/27/22 04:52: WBC 10.9, RBC 3.85 L, Hgb 9.5 L, Hct 32.5 L, MCV 84.4, MCH 24.7 L, MCHC 29.2 L, RDW Std Deviation 61.5 H, RDW Coeff of Naren 20.1 H, Plt Count 404, MPV 11.4, Immature Gran % (Auto) 0.600, Neut % (Auto) 65.2, Lymph % (Auto) 18.3 L, [place] % (Auto) 9.3, Eos % (Auto) 6.2 H, Baso % (Auto) 0.4, Absolute Neuts (auto) 7.1, Absolute Lymphs (auto) 1.99, Nucleated RBC % 0, Anisocytosis 2+ 09/27/22 04:52: Sodium 143, Potassium 3.3 L, Chloride 105, Carbon Dioxide 32.0, Anion Gap 6, BUN 6 L, Creatinine 0.53 L, Estim Creat Clear Calc 37.45, Est GFR (MDRD) Af Amer 142, Est GFR (MDRD) Non-Af 117, BUN/Creatinine Ratio 11.3, Glucose 188 H, Calcium 8.5 09/27/22 04:52: Total Bilirubin 0.30, Direct Bilirubin 0.13, AST 19, ALT 15, Alkaline Phosphatase 57, Total Protein 6.0 L, Albumin 1.9 L, Globulin 4.1 09/27/22 06:35: POC Glucose 173 H 09/27/22 11:31: POC Glucose 232 H Micro: Microbiology 09/25/22 09:35 Stool C. difficile DNA Amplification - Final Radiography Diagnostic Testing: Radiology Impression Chest Ultrasound 09/24/22 07:22 IMPRESSION: Minimal left pleural effusion. Electronically Signed: Lamonte Gaona MD at 9:10 EST , Physical Exam Narrative Physical exam: General: Alert, Oriented x3, Cooperative, obese, on 2 L of oxygen HEENT: Atraumatic Oral: Moist Mucosa Neck: Supple Lungs: Clear to auscultation Cardiovascular: HS I+II, regular, no murmurs Abdomen: Midline wound dressing slightly soaked, bowel Sounds Present, Soft, Non Tender Extremities: No edema Skin: No rashes, No breakdown Neurological: Grossly intact Psych/Mental Status: Appropriate Assessment & Plan Assessment/Plan (1) S/P right hemicolectomy: (2) Acute respiratory failure with hypoxia: PLAN: Plan 1. Acute large bowel obstruction secondary to colonic CA status post right hemicolectomy Patient is able to tolerate advancement in her diet She however has increased drainage from the surgical site secondary to severe hypoalbuminemia Ct of the abd/pelvis on 09/22/2022 was negative for any fluid collection intra- abdominal Continue frequent wound dressing 2. Hypokalemia, K 3.3 , replaced, recheck in am 3. Severe protein calorie malnutrition, software developer intern consulted, continue supplements 4. Acute hypoxic respiratory failure secondary to pleural effusions, bilateral f rom severe hypoalbuminemia An attempt was made to tap effusion by IR; unable to obtain Encourage use of IS 5. Iron deficiency anemia secondary to chronic GI blood loss from colon cancer 6. Type II DM, BS is fairly controlled, continue with med scale ISS with blood glucose checks 7. Morbid obesity, BMI 40.3, lifestyle recommendations to be made when patients improves 8. DVT PPx- Lovenox SC Charges/Coding Visit Charges Inpatient E&M: 59009 Subs Hosp L3
[2022-09-27 14:11] VITALS: BP 114/62; PULSE 82; RESP 20; TEMP 36.8; O2SAT 95
--- NOTE | 2022-09-27 14:53 | WOUNDNOTE ---
wound photo: abdomen
--- NOTE | 2022-09-27 15:02 | CASEMGMT ---
Social work SW called [employer] to check on precert. SW was transferred to several different workers before receiving VM. SW left message requesting call back to discuss pt authorization. DONA Matson
--- NOTE | 2022-09-27 15:38 | CASEMGMT ---
Addendum entered by Mikki Murphy 09/27/22 15:59: MAYDA notified by Dr. Garcia that pt not discharging today as there are complications with wound. SW informed Kandice at TCU. Plan is to re-assess tomorrow. Original Note: Social Work SW received phone call from [employer]. Pt has been approved for TCU. Auth number is [id number]. SW notified pt, pt's daughter and pt's , Dr. Garcia of approval. SW also notified Kandice at [facility] of authorization. Sw notified pt nurse of need for covid test. PLAN: TCU DONA Matson
[2022-09-27 17:11] LABS: Bedside Glucose 257 mg/dL (74-106)
[2022-09-27 20:26] VITALS: BP 149/60; PULSE 77; RESP 18; TEMP 36.3; O2SAT 95
[2022-09-27] MEDS: Atorvastatin Calcium 40 MG Tablet PO (20:43)
[2022-09-27 21:50] LABS: Bedside Glucose 194 mg/dL (74-106)
[2022-09-28 03:00] VITALS: BP 149/55; PULSE 64; RESP 19; TEMP 36.4; O2SAT 94
[2022-09-28 06:12] LABS: Absolute Lymphocyte Count 2.36 X10^3/uL (0.83-4.51); Absolute Neutrophil Count 7.1 X10^3/uL (2.0-7.7); Basophil# 0.07 X10^3/uL; Basophil% 0.6 % (0-1); Eosinophil# 0.74 X10^3/uL; Eosinophils% 6.6 % (0-5); Hemoglobin 9.6 g/dL (12.0-15.0); Lymphocyte # 2.36 X10^3/ul (0.83-4.51); Mean Corpuscular Hgb 25.5 pg (27.0-32.0); Mean Corpuscular Volume 84.9 fL (81-99); Mean Platelet Vol. 11.6 fl (6.2-12.0); Monocyte# 0.97 X10^3/uL; Monocyte% 8.6 % (0-10); NRBC Flagged by Analyzer 0 % (0-5); Neutrophil # 7.05 X10^3/uL (2.7-7.7); Neutrophil % 62.8 % (47-70); POSITIVE MORPHOLOGY YES; Platelet Count 387 K/mm3 (150-450); RBC Distribution Width CV 20.1 % (11.6-14.6); RBC Distribution Width SD 61.6 fl (35.1-43.9); Red Blood Count 3.77 M/mm3 (4.2-5.4); White Blood Count 11.2 K/mm3 (4.4-11.0)
[2022-09-28 06:14] LABS: Differential Indicated SCAN CRITERIA MET
[2022-09-28 06:36] LABS: Anisocytosis 2+; Differential Comment SCANNED; Macrocytosis 1+; Microcytosis 1+
[2022-09-28] MEDS: Insulin Lispro 100 UNIT/ML INSULN.PEN SC ×4 (06:39→21:16)
[2022-09-28 07:15] LABS: Bedside Glucose 184 mg/dL (74-106)
[2022-09-28 07:16] LABS: ALB/GLOB Ratio 0.4 RATIO (0.9-2.4); AST(SGOT) 16 U/L (15-37); Alanine Aminotransfer ALT/SGPT 12 U/L (13-56); Albumin, Serum 1.8 g/dL (3.2-5.0); Alkaline Phosphatase 60 U/L (45-117); Anion Gap 6 (5-15); BUN 10 mg/dL (7-18); Calcium,Total 8.5 mg/dL (8.5-10.1); Chloride 105 mmol/L (98-107); Creatinine, Serum 0.62 mg/dL (0.55-1.02); EST Glomerular Filtration Rate 97 mL/min (>60); Est Glom Filt Rate - Afr Amer 118 mL/min (>60); Estimated Creatinine Clearance 37.45 ml/min; Globulin 4.2 g/dL (2.2-4.2); Glucose 179 mg/dL (74-106); Potassium 3.9 mmol/L (3.5-5.1); Sodium Level 140 mmol/L (136-145)
[2022-09-28 08:07] VITALS: BP 127/64; PULSE 64; RESP 18; TEMP 36.5; O2SAT 99
--- NOTE | 2022-09-28 08:29 | PN.SURG_ITS ---
Subjective Subjective Patient has previously been refusing Glucerna shakes. Patient's family did bring in Premier protein which patient does like the taste much better and has been drinking. Patient is tolerating a regular diet and having bowel function. Patient still needing frequent dressing changes due to fluid especially on patie nt gets up and moves. Objective Data Objective Data Vital Signs: Vital Signs Temp Pulse Resp BP Pulse Ox O2 Del Method O2 Flow Rate 97.7 F L 64 18 127/64 H 99 Room Air 2 09/28/22 08:07 09/28/22 08:07 09/28/22 08:07 09/28/22 08:07 09/28/22 08:07 09/28/22 08:11 09/27/22 03:00 FiO2 30 09/17/22 07:00 Oxygen Flow Rate (L/min) [1 ( 3 Initial Baseline)] Oxygen Flow Rate (L/min) 2 Oxygen Delivery Method [1 ( Nasal Cannula Initial Baseline)] Oxygen Delivery Method Room Air Weight: 229 lb 0.964 oz Body Mass Index (BMI) 41.8 Intake & Output: Intake and Output for Last 24 Hours 09/26/22 09/27/22 09/28/22 23:59 23:59 23:59 Intake Total 490 / 490 Output Total 1100 / 1100 350 / 350 Balance -1100 / -850 140 / 140 Medical Nutrition Assessment Dietitian: Malnutrition Criteria Met Start: 09/16/22 14:3 5 Freq: Status: Active Protocol: Document 09/22/22 15:04 RMA (Rec: 09/22/22 15:04 RMA [id number]) Nutrition Malnutrition Evidence of Malnutrition Exists Yes Malnutrition (severe): Acute Illness/Injury Evidenced By Suboptimal Energy Intake ( Severe),Weight Loss (Severe) Intake Problem Inadequate Oral Intake Etiology related to altered GI function /obstruction Signs/Symptoms as evidenced by NPO status X day #4 Status Resolved Problem Clinical Problem Acute Disease or Injury Related Malnutrition Etiology Severe protein-calorie malnutrition in the context of acute disease related to altered GI function and inadequate oral intake Signs/Symptoms as evidenced by poor PO x past 1-2 weeks scow captain meeting less than 50% estimated nutrition needs, weight loss~5-6% x past 1-2 weeks scow captain and 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 Pt does not want ONS when offered today. ONS as needed when diet advanced from full liquids. Lab / Micro Data Result Diagrams: 09/28/22 05:13 09/28/22 05:13 Labs: Laboratory Results - last 24 hr 09/27/22 04:52: Total Bilirubin 0.30, Direct Bilirubin 0.13, AST 19, ALT 15, Alkaline Phosphatase 57, Total Protein 6.0 L, Albumin 1.9 L, Globulin 4.1 09/27/22 11:31: POC Glucose 232 H 09/27/22 16:42: POC Glucose 257 H 09/27/22 20:35: POC Glucose 194 H 09/28/22 05:13: WBC 11.2 H, RBC 3.77 L, Hgb 9.6 L, Hct 32.0 L, MCV 84.9, MCH 25.5 L, MCHC 30.0 L, RDW Std Deviation 61.6 H, RDW Coeff of Naren 20.1 H, Plt Count 387, MPV 11.6, Immature Gran % (Auto) 0.400, Neut % (Auto) 62.8, Lymph % (Auto) 21.0, [place] % (Auto) 8.6, Eos % (Auto) 6.6 H, Baso % (Auto) 0.6, Absolute Neuts (auto) 7.1, Absolute Lymphs (auto) 2.36, Nucleated RBC % 0, Differential Comment SCANNED, Anisocytosis 2+, Microcytosis 1+, Macrocytosis 1+ 09/28/22 05:13: Sodium 140, Potassium 3.9, Chloride 105, Carbon Dioxide 29.0, Anion Gap 6, BUN 10, Creatinine 0.62, Estim Creat Clear Calc 37.45, Est GFR (MDRD) Af Amer 118, Est GFR (MDRD) Non-Af 97, BUN/Creatinine Ratio 16.0, Glucose 179 H, Calcium 8.5, Total Bilirubin 0.40, AST 16, ALT 12 L, Alkaline Phosphatase 60, Total Protein 6.0 L, Albumin 1.8 L, Globulin 4.2, Albumin/Globulin Ratio 0.4 L 09/28/22 06:36: POC Glucose 184 H Micro: Microbiology 09/25/22 09:35 Stool C. difficile DNA Amplification - Final Radiography Diagnostic Testing: Radiology Impression Chest Ultrasound 09/24/22 07:22 IMPRESSION: Minimal left pleural effusion. Electronically Signed: Lamonte Gaona MD at 9:10 EST Reading Location ID and State: [facility] / [place] , Service support , Physical Exam Const no apparent distress Resp normal respiratory effort Cardio regular rate GI GI Narrative: Soft, nondistended, tender near incision. Superior incision open with initially dry dressing placed which does get saturated due to leakage of fluid. Did have patient cough while up in the chair no obvious leakage of fluid with coughing. Assessment & Plan Assessment/Plan (1) S/P right hemicolectomy: (2) Colonic mass: (3) Acute respiratory failure with hypoxia: PLAN: Plan Patient is tolerating regular diet as well as Premier protein shakes as patient did not like the Glucerna and was refusing. Continue frequent dressing changes to wound with dry dressing in place as patient's severe malnutrition is likely attributed to the increased fluid which will hopefully resolve with improved nutrition. Out of bed to chair [facility]. Appreciate hospitalist assistance with medical management. Deanna Rivera M.D. Pager: [phone] [facility] [address] [place] [address], [facility], [address] [place] [address] Office: [phone]
[2022-09-28] MEDS: Clopidogrel Bisulfate 75 MG Tablet PO (08:34)
[2022-09-28] MEDS: Enoxaparin 40 MG/0.4 ML Syringe SC (08:34)
--- NOTE | 2022-09-28 10:27 | PN.HOSP_ITS ---
Subjective Subjective Follow-up in large bowel obstruction/colon CA: Patient was seen and examined.? She is tolerating her diet with protein supplementation. She still has serosanguineous discharge from her wound. Dressings are being done very frequently. Denied any fever or chills. Objective Data Objective Data Vital Signs: Vital Signs Temp Pulse Resp BP Pulse Ox O2 Del Method O2 Flow Rate 97.7 F L 64 18 127/64 H 99 Room Air 2 09/28/22 08:07 09/28/22 08:07 09/28/22 08:07 09/28/22 08:07 09/28/22 08:07 09/28/22 09:41 09/27/22 03:00 FiO2 30 09/17/22 07:00 Oxygen Flow Rate (L/min) [1 ( 3 Initial Baseline)] Oxygen Flow Rate (L/min) 2 Oxygen Delivery Method [1 ( Nasal Cannula Initial Baseline)] Oxygen Delivery Method Room Air Weight: 103.9 kg Body Mass Index (BMI) 41.8 Intake & Output: Intake and Output for Last 24 Hours 09/26/22 09/27/22 09/28/22 23:59 23:59 23:59 Intake Total 490 / 490 Output Total 1100 / 1100 350 / 350 Balance -1100 / -850 140 / 140 Medical Nutrition Assessment Dietitian: Malnutrition Criteria Met Start: 09/16/22 14:35 Freq: Status: Active Protocol: Document 09/22/22 15:04 RMA (Rec: 09/22/22 15:04 RMA [id number]) Nutrition Malnutrition Evidence of Malnutrition Exists Yes Malnutrition (severe): Acute Illness/Injury Evidenced By Suboptimal Energy Intake ( Severe),Weight Loss (Severe) Intake Problem Inadequate Oral Intake Etiology related to altered GI function /obstruction Signs/Symptoms as evidenced by NPO status X day #4 Status Resolved Problem Clinical Problem Acute Disease or Injury Related Malnutrition Etiology Severe protein-calorie malnutrition in the context of acute disease related to altered GI function and inadequate oral intake Signs/Symptoms as evidenced by poor PO x 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 Pt does not want ONS when offered today. ONS as needed when diet advanced from full liquids. Lab / Micro Data Result Diagrams: 09/28/22 05:13 09/28/22 05:13 Labs: Laboratory Results - last 24 hr 09/27/22 04:52: Total Bilirubin 0.30, Direct Bilirubin 0.13, AST 19, ALT 15, Alkaline Phosphatase 57, Total Protein 6.0 L, Albumin 1.9 L, Globulin 4.1 09/27/22 11:31: POC Glucose 232 H 09/27/22 16:42: POC Glucose 257 H 09/27/22 20:35: POC Glucose 194 H 09/28/22 05:13: WBC 11.2 H, RBC 3.77 L, Hgb 9.6 L, Hct 32.0 L, MCV 84.9, MCH 25.5 L, MCHC 30.0 L, RDW Std Deviation 61.6 H, RDW Coeff of Naren 20.1 H, Plt Count 387, MPV 11.6, Immature Gran % (Auto) 0.400, Neut % (Auto) 62.8, Lymph % (Auto) 21.0, [place] % (Auto) 8.6, Eos % (Auto) 6.6 H, Baso % (Auto) 0.6, Absolute Neuts (auto) 7.1, Absolute Lymphs (auto) 2.36, Nucleated RBC % 0, Differential Comment SCANNED, Anisocytosis 2+, Microcytosis 1+, Macrocytosis 1+ 09/28/22 05:13: Sodium 140, Potassium 3.9, Chloride 105, Carbon Dioxide 29.0, Anion Gap 6, BUN 10, Creatinine 0.62, Estim Creat Clear Calc 37.45, Est GFR (MDR D) Af Amer 118, Est GFR (MDRD) Non-Af 97, BUN/Creatinine Ratio 16.0, Glucose 179 H, Calcium 8.5, Total Bilirubin 0.40, AST 16, ALT 12 L, Alkaline Phosphatase 60, Total Protein 6.0 L, Albumin 1.8 L, Globulin 4.2, Albumin/Globulin Ratio 0.4 L 09/28/22 06:36: POC Glucose 184 H Micro: Microbiology 09/25/22 09:35 Stool C. difficile DNA Amplification - Final Physical Exam Narrative Physical exam: General: Alert, Oriented x3, Cooperative, obese HEENT: Atraumatic Oral: Moist Mucosa Neck: Supple Lungs: Clear to auscultation Cardiovascular: HS I+II, regular, no murmurs Abdomen: Midline wound dressing slightly soaked, bowel Sounds Present, Soft, Non Tender Extremities: No edema Skin: No rashes, No breakdown Neurological: Grossly intact Psych/Mental Status: Appropriate Assessment & Plan Assessment/Plan (1) S/P right hemicolectomy: (2) Acute respiratory failure with hypoxia: PLAN: Plan 1. Acute large bowel obstruction secondary to colonic CA status post right hemicolectomy Patient is able to tolerate advancement in her diet She however has increased drainage from the surgical site secondary to severe hypoalbuminemia Ct of the abd/pelvis on 09/22/2022 was negative for any fluid collection intra- abdominal Continue frequent wound dressing 2. Hypokalemia, resolved 3. Severe protein calorie malnutrition, director of enrollment consulted, continue supplements 4. Acute hypoxic respiratory failure secondary to pleural effusions, bilateral from severe hypoalbuminemia An attempt was made to tap effusion by IR; unable to obtain Encourage use of IS 5. Iron deficiency anemia secondary to chronic GI blood loss from colon cancer 6. Type II DM, BS is fairly controlled, continue with med scale ISS with blood glucose checks 7. Morbid obesity, BMI 40.3, lifestyle recommendations to be made when patients improves 8. DVT PPx- Lovenox SC Charges/Coding Visit Charges Inpatient E&M: 34713 Subs Hosp L2
[2022-09-28 11:45] LABS: Bedside Glucose 253 mg/dL (74-106)
[2022-09-28] MEDS: Nystatin Powder 15gm Bottle 1 APPLIC TOPICAL ×2 (14:35→21:15)
[2022-09-28 15:39] VITALS: BP 129/51; PULSE 85; RESP 18; TEMP 36.8; O2SAT 94
[2022-09-28] MEDS: Juven (unflavored) Packet 2 PACKET PO (16:48)
[2022-09-28 20:17] VITALS: BP 135/89; PULSE 83; RESP 18; TEMP 36.8; O2SAT 93
[2022-09-28] MEDS: Atorvastatin Calcium 40 MG Tablet PO (21:16)
[2022-09-28 21:40] LABS: Bedside Glucose 247 mg/dL (74-106)
[2022-09-28 22:11] LABS: Bedside Glucose 240 mg/dL (74-106)
[2022-09-29 02:30] VITALS: BP 137/55; PULSE 92; RESP 16; TEMP 36.6; O2SAT 93
[2022-09-29] MEDS: Nystatin Powder 15gm Bottle 1 APPLIC TOPICAL (06:28)
[2022-09-29 06:29] LABS: Absolute Neutrophil Count 8.9 X10^3/uL (2.0-7.7); Basophil# 0.06 X10^3/uL; Basophil% 0.5 % (0-1); Eosinophil# 0.63 X10^3/uL; Eosinophils% 4.9 % (0-5); Hemoglobin 10.3 g/dL (12.0-15.0); Lymphocyte % 17.2 % (19-41); Mean Corp Hgb Conc 29.4 g/dL (32-36); Mean Corpuscular Hgb 24.6 pg (27.0-32.0); Mean Corpuscular Volume 83.7 fL (81-99); Mean Platelet Vol. 11.7 fl (6.2-12.0); Monocyte# 0.96 X10^3/uL; Monocyte% 7.5 % (0-10); NRBC Flagged by Analyzer 0 % (0-5); Neutrophil # 8.86 X10^3/uL (2.7-7.7); Neutrophil % 69.3 % (47-70); POSITIVE MORPHOLOGY YES; Platelet Count 434 K/mm3 (150-450); RBC Distribution Width CV 20.3 % (11.6-14.6); RBC Distribution Width SD 60.7 fl (35.1-43.9); Red Blood Count 4.18 M/mm3 (4.2-5.4); White Blood Count 12.8 K/mm3 (4.4-11.0)
[2022-09-29] MEDS: Insulin Lispro 100 UNIT/ML INSULN.PEN SC ×2 (06:29→11:02)
[2022-09-29 06:34] LABS: Differential Indicated SCAN CRITERIA MET
[2022-09-29 06:54] LABS: Anisocytosis 1+; Differential Comment SCANNED; Macrocytosis RARE; Microcytosis RARE
[2022-09-29 06:57] LABS: ALB/GLOB Ratio 0.4 RATIO (0.9-2.4); AST(SGOT) 19 U/L (15-37); Alanine Aminotransfer ALT/SGPT 12 U/L (13-56); Albumin, Serum 1.9 g/dL (3.2-5.0); Alkaline Phosphatase 56 U/L (45-117); Anion Gap 3 (5-15); BUN 23 mg/dL (7-18); BUN/Creat Ratio 34.7 RATIO (10-20); Calcium,Total 9.1 mg/dL (8.5-10.1); Chloride 105 mmol/L (98-107); Creatinine, Serum 0.66 mg/dL (0.55-1.02); EST Glomerular Filtration Rate 91 mL/min (>60); Est Glom Filt Rate - Afr Amer 110 mL/min (>60); Estimated Creatinine Clearance 37.45 ml/min; Globulin 4.7 g/dL (2.2-4.2); Glucose 226 mg/dL (74-106); Potassium 4.1 mmol/L (3.5-5.1); Protein, Total 6.6 g/dL (6.4-8.2); Sodium Level 139 mmol/L (136-145)
--- NOTE | 2022-09-29 06:58 | PN.SURG_ITS ---
Subjective Subjective Patient tolerating diet and her Premier protein drinks. Patient denies any nausea or vomiting. Patient's incision still draining and frequent dressing changes are being done Objective Data Objective Data Vital Signs: Vital Signs Temp Pulse Resp BP Pulse Ox O2 Del Method O2 Flow Rate 97.8 F 92 16 137/55 H 93 Room Air 2 09/29/22 02:30 09/29/22 02:30 09/29/22 02:30 09/29/22 02:30 09/29/22 02:30 09/29/22 02:30 09/27/22 03:00 FiO2 30 09/17/22 07:00 Oxygen Flow Rate (L/min) [1 ( 3 Initial Baseline)] Oxygen Flow Rate (L/min) 2 Oxygen Delivery Method [1 ( Nasal Cannula Initial Baseline)] Oxygen Delivery Method Room Air Weight: 229 lb 0.964 oz Body Mass Index (BMI) 41.8 Intake & Output: Intake and Output for Last 24 Hours 09/27/22 09/28/22 09/29/22 23:59 23:59 23:59 Intake Total 490 / 990 850 / 850 Output Total 1100 / 1100 350 / 800 850 / 850 Balance -1100 / -850 140 / 190 0 / 0 Medical Nutrition Assessment Dietitian: Malnutrition Criteria Met Start: 09/16/22 14:35 Freq: Status: Active Protocol: Document 09/22/22 15:04 RMA (Rec: 09/22/22 15:04 RMA [id number]) Nutrition Malnutrition Evidence of Malnutrition Exists Yes Malnutrition (severe): Acute Illness/Injury Evidenced By Suboptimal Energy Intake ( Severe),Weight Loss (Severe) Intake Problem Inadequate Oral Intake Etiology related to altered GI function /obstruction Signs/Symptoms as evidenced by NPO status X day #4 Status Resolved Problem Clinical Problem Acute Disease or Injury Related Malnutrition Etiology Severe protein-calorie malnutrition in the context of acute disease related to altered GI function and inadequate oral intake Signs/Symptoms as evidenced by poor PO x past 1-2 weeks 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 Pt does not want ONS when offered today. ONS as needed when diet advanced from full liquids. Lab / Micro Data Result Diagrams: 09/29/22 05:53 09/29/22 05:53 Labs: Laboratory Results - last 24 hr 09/28/22 05:13: Sodium 140, Potassium 3.9, Chloride 105, Carbon Dioxide 29.0, Anion Gap 6, BUN 10, Creatinine 0.62, Estim Creat Clear Calc 37.45, Est GFR (MDRD) Af Amer 118, Est GFR (MDRD) Non-Af 97, BUN/Creatinine Ratio 16.0, Glucose 179 H, Calcium 8.5, Total Bilirubin 0.40, AST 16, ALT 12 L, Alkaline Phosphatase 60, Total Protein 6.0 L, Albumin 1.8 L, Globulin 4.2, Albumin/Globulin Ratio 0.4 L 09/28/22 06:36: POC Glucose 184 H 09/28/22 11:12: POC Glucose 253 H 09/28/22 16:45: POC Glucose 247 H 09/28/22 21:13: POC Glucose 240 H 09/29/22 05:53: WBC 12.8 H, RBC 4.18 L, Hgb 10.3 L, Hct 35.0 L, MCV 83.7, MCH 24.6 L, MCHC 29.4 L, RDW Std Deviation 60.7 H, RDW Coeff of Naren 20.3 H, Plt Count 434, MPV 11.7, Immature Gran % (Auto) 0.600, Neut % (Auto) 69.3, Lymph % (Auto) 17.2 L, [place] % (Auto) 7.5, Eos % (Auto) 4.9, Baso % (Auto) 0.5, Absolute Neuts (auto) 8.9 H, Absolute Lymphs (auto) 2.20, Nucleated RBC % 0, Differential Comment SCANNED, Anisocytosis 1+, Microcytosis RARE, Macrocytosis RARE 09/29/22 05:53: Sodium 139, Potassium 4.1, Chloride 105, Carbon Dioxide 31.0, Anion Gap 3 L, BUN 23 H, Creatinine 0.66, Estim Creat Clear Calc 37.45, Est GFR (MDRD) Af Amer 110, Est GFR (MDRD) Non-Af 91, BUN/Creatinine Ratio 34.7 H, Glucose 226 H, Calcium 9.1, Total Bilirubin 0.40, AST 19, ALT 12 L, Alkaline Phosphatase 56, Total Protein 6.6, Albumin 1.9 L, Globulin 4.7 H, Albumin/Globulin Ratio 0.4 L Micro: Microbiology 09/25/22 09:35 Stool C. difficile DNA Amplification - Final Physical Exam Const no apparent distress Resp normal respiratory effort Cardio regular rate GI GI Narrative: Soft, nondistended, tender near incision. Superior incision open with initially dry dressing placed which does get saturated due to leakage of fluid--surrounding erythema likely due to wet dressings on the skin. Assessment & Plan Assessment/Plan (1) S/P right hemicolectomy: (2) Primary adenocarcinoma of ascending colon: PLAN: Plan Patient is tolerating regular diet as well as Premier protein shakes Continue frequent dressing changes to wound with dry dressing in place as patient's severe malnutrition is likely attributed to the increased fluid which will hopefully resolve with improved nutrition. Okay for patient to go to TCU today. Out of bed to chair Maria Esther. Appreciate hospitalist assistance with medical management. Deanna Rivera M.D. Pager: [phone] [facility] [address] [place] [address], [facility], [address] [place] [address] Office: [phone]
[2022-09-29 07:06] LABS: Bedside Glucose 221 mg/dL (74-106)
[2022-09-29 07:47] VITALS: BP 115/61; PULSE 74; RESP 16; TEMP 36.6; O2SAT 96
[2022-09-29 08:38] VITALS: O2SAT 98
[2022-09-29] MEDS: Juven (unflavored) Packet 2 PACKET PO (08:46)
--- NOTE | 2022-09-29 08:47 | WOUNDNOTE ---
wound photo: abdomen
[2022-09-29] MEDS: Clopidogrel Bisulfate 75 MG Tablet PO (09:25)
[2022-09-29] MEDS: Enoxaparin 40 MG/0.4 ML Syringe SC (09:25)
--- NOTE | 2022-09-29 09:54 | PCM.TXEXTCAR ---
Diet Diet Order/Speech Therapy: 09/23/22 14:15 Diet: Carbohydrate Controlled Type of Dietary Supplement:: Beneprotein Is pt able to select menu?: No Diet Comments: 1 scoop beneprotein w/ meals tid Routine Orders/Code Status Suppository Type: Dulcolax 10mg Suppository Frequency: Daily PRN Routine Lab Work: CBC (within 3 days) and - (within 3 days) Code Status: DNRCC-A Wound(s) Abdomen: Wound Type: surgical incision with dehiscence superiorly Dressing Change: Dry Sterile Dressing Therapies Weight Bearing: Weight bearing as tolerated Physical Therapy: Eval and Treat Occupational Therapy: Eval and Treat Problem/Diagnosis (1) S/P right hemicolectomy: Status: Acute Code(s): Z90.49 - Acquired absence of other specified parts of digestive tract (2) Primary adenocarcinoma of ascending colon: Status: Acute Code(s): C18.2 - Malignant neoplasm of ascending colon Plan 1. Acute large bowel obstruction secondary to colonic CA status post right hemicolectomy 2. Hypokalemia 3. Severe protein calorie malnutrition 4. Acute hypoxic respiratory failure secondary to pleural effusions, bilateral from severe hypoalbuminemia 5. Iron deficiency anemia secondary to chronic GI blood loss from colon cancer 6. Type II DM 7. Morbid obesity, BMI 40.3 Allergies/Procedures Done in Hospital Allergies No Known Allergies Allergy (Verified 09/15/22 18:22) Procedures: - (hemicolectomy 09/17/22) Type of Care/Length of Stay Estimated LOS: Convalescent Care Less Than 30 days Type of Care Needed: Skilled Rehab Potential: Good Prognosis: Good Additional Orders/Day of Discharge Day of Discharge: 09/29/22 Dietary and Speech Recommendations Dietitian Recommendations/Changes: Rec continue Carbohydrate-Controlled diet. Will d/c glucerna shake at [employer] d/t pt refusal and give 1 scoop of beneprotein at meals instead. Discharge Plan Admission Admit Date/Time: 09/15/22 21:30 Primary Reason for Your Visit: Abdominal pain Attending Provider: Di Garcia Primary Care Provider: Jim Triplett Chi Consulting Providers: Hudson Jo ; Deanna Rivera ; Harish John ; Babatunde Vieira ; Marcelina Jordan Discharge Orders/Prescriptions Prescriptions: New Keith (with collagen) 7-7-1.5 gram Powder In Packet 2 packet PO BIDCM Qty: 0 0RF Continued polysaccharide iron complex [Ferrex 150] 150 mg iron capsule 150 mg PO DAILY ascorbic acid (vitamin C) [Vitamin C] 500 mg Tablet 500 mg PO DAILY nystatin [Nyamyc] 100,000 unit/gram powder 1 applic TOPICAL BID polyethylene glycol 3350 17 gram/dose powder 17 g PO DAILY atorvastatin 40 MG tablet 40 mg PO QHS clopidogrel 75 MG tablet 75 mg PO DAILY sennosides-docusate sodium [Senna with Docusate Sodium] 8.6-50 mg Tablet 2 tab-cap PO BID acetaminophen 500 mg Tablet 1,000 mg PO Q6H PRN (Reason: Pain) glimepiride 2 mg Tablet 2 mg PO DAILY ondansetron 8 mg Tablet,Disintegrating 8 mg PO Q8H PRN (Reason: Nausea) Glucerna Shake Liquid 120 ml PO TIDCM menthol-zinc oxide [Calmoseptine] 0.44-20.6 % Ointment 1 applic TOPICAL BID@0600,2200 Referrals / Follow Up: Jim Triplett Chi, MD [Primary Care Provider] - Disposition Disposition (needs filled in before D/C Order can be placed): [facility]
--- NOTE | 2022-09-29 10:03 | PCM.DC.SUM ---
Providers Date of Admission: 09/15/22 Date of Discharge: 09/29/22 Primary Care Physician: Dr. Jim Triplett MD Consultations 09/15/22 22:28 Consult: General Surgery Routine Consulting Provider: Deanna Rivera Reason for Consult: colon mass EMERGENT Consult: No MD Notified: Yes Date Notified: 09/15/22 Time Notified: 21:34 Method of Notification: Verbal 09/16/22 13:11 Consult: Certified Solid Waste Facility Operator / Pulmonary Medicine Routine Consulting Provider: Harish John Reason for Consult: ICU management EMERGENT Consult: Yes MD Notified: Yes Date Notified: 09/16/22 Time Notified: 13:11 Method of Notification: Verbal 09/20/22 07:25 Consult: Onc/Wound/plant scientist Routine Comment: Reason for Consult:: skin under abdominal folds, breasts, and groin are extremely red Comments:: nystatin powder was dc'ed. cream added which made worse Reason For Visit: COLON OBSTRUCTION Diagnosis Discharge Diagnosis (1) S/P right hemicolectomy: Status: Acute Code(s): Z90.49 - Acquired absence of other specified parts of digestive tract (2) Primary adenocarcinoma of ascending colon: Status: Acute Code(s): C18.2 - Malignant neoplasm of ascending colon Plan 1. Acute large bowel obstruction secondary to colonic CA status post right hemicolectomy 2. Hypokalemia 3. Severe protein calorie malnutrition 4. Acute hypoxic respiratory failure secondary to pleural effusions, bilateral from severe hypoalbuminemia 5. Iron deficiency anemia secondary to chronic GI blood loss from colon cancer 6. Type II DM 7. Morbid obesity, BMI 40.3 Medications at Discharge Home Medications ascorbic acid (vitamin C) 500 mg tablet (Vitamin C) 500 mg PO DAILY SUPPLEMENT 09/09/22 atorvastatin 40 mg tablet 40 mg PO QHS CHOLESTEROL 09/09/22 clopidogrel 75 mg tablet 75 mg PO DAILY BLOOD THINNER 09/09/22 nystatin 100,000 unit/gram topical powder (Nyamyc) 1 applic topical BID skin folds, groin, under breasts 09/09/22 polyethylene glycol 3350 17 gram/dose oral powder 17 g PO DAILY STOOL 09/09/22 polysaccharide iron complex 150 mg iron capsule (Ferrex) 150 mg PO DAILY iron 09/09/22 acetaminophen 500 mg tablet 1,000 mg PO Q6H PRN Pain 09/15/22 glimepiride 2 mg tablet 2 mg PO DAILY DIABETES 09/15/22 menthol 0.44 %-zinc oxide 20.6 % topical ointment (Calmoseptine) 1 applic topical BID@0600,2200 barrier cream 09/15/22 nut.tx.gluc.intol,lac-free,soy (Glucerna Shake oral liquid) 120 ml PO TIDCM supplement 09/15/22 ondansetron 8 mg disintegrating tablet 8 mg PO Q8H PRN Nausea 09/15/22 sennosides 8.6 mg-docusate sodium 50 mg tablet (Senna with Docusate Sodium) 2 tab-cap PO BID STOOL 09/15/22 arginine 7 gram-glutam 7 gram-CaHMB 1.5 [id number]-clyjd-zw-min oral pwd pkt (Keith (with collagen)) 2 packet PO BIDCM supplement 09/29/22 Hospital Course Operations colectomy (open right hemicolectomy on 09/16/22) Procedures None Summary of Care Provided Minutes Spent on Discharge: 40 Hospital Course: 82 y/o female with PMHx of CAD s/p stents, hypertension, morbid obesity who presented with right upper quadrant pain. Patient was recently admitted and discharged on to 4 severe microcytic anemia in which she was transfused 2 units of packed RBC. Patient had followed up with GI in the outpatient and a colonoscopy was planned. Patient however has severe abdominal pain and presented to the emergency room. In emergency room, she had a CAT scan that showed a 55 x 39 mm apical core type lesion around the hepatic flexure of the colon causing colonic obstruction with copious fecal material in the ascending colon. General surgery was consulted from the ED. Patient underwent open right hemicolectomy on 09/16/2022. Postoperatively, patient was managed in ICU. She was extubated on 09/17/22. [facility] She generally did well. She had some increased serosanguineous discharge from her midline wound. CT of the abdomen pelvis was negative for any fluid collection. Patient did have evidence of severe protein calorie malnutrition. She was started on protein supplements. Patient's wound dressings were frequently done. She had a slight area of erythema around the wound from the wound being wet. She also had hypokalemia that was replaced during this hospital stay. Patient was seen by PT/OT and skilled for discharge to senior living facility. She will follow-up with Dr. Aguilar within a week. Physical Exam Narrative Physical exam: General: Alert, Oriented x3, Cooperative, obese HEENT: Atraumatic Oral: Moist Mucosa Neck: Supple Lungs: Clear to auscultation Cardiovascular: HS I+II, regular, no murmurs Abdomen: Midline wound dressing slightly soaked, bowel Sounds Present, Soft, Non Tender Extremities: No edema Skin: No rashes, No breakdown Neurological: Grossly intact Psych/Mental Status: Appropriate Medical Records Data Medical Nutrition Assessment Dietitian: Malnutrition Criteria Met Start: 09/16/22 14:35 Freq: Status: Active Protocol: Document 09/22/22 15:04 RMA (Rec: 09/22/22 15:04 RMA [id number]) Nutrition Malnutrition Evidence of Malnutrition Exists Yes Malnutrition (severe): Acute Illness/Injury Evidenced By Suboptimal Energy Intake ( Severe),Weight Loss (Severe) Intake Problem Inadequate Oral Intake Etiology related to altered GI function /obstruction Signs/Symptoms as evidenced by NPO status X day #4 Status Resolved Problem Clinical Problem Acute Disease or Injury Related Malnutrition Etiology Severe protein-calorie malnutrition in the context of acute disease related to altered GI function and inadequate oral intake Signs/Symptoms as evidenced by poor PO x 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 Pt does not want ONS when offered today. ONS as needed when diet advanced from full liquids. Weight / BMI Weight Weight: 103.9 kg Body Mass Index (BMI) 41.8 ABG / Lab / Microbiology Data Result Diagrams: 09/29/22 05:53 09/29/22 05:53 Laboratory: Laboratory Results - last 24 hr 09/28/22 11:12: POC Glucose 253 H 09/28/22 16:45: POC Glucose 247 H 09/28/22 21:13: POC Glucose 240 H 09/29/22 05:53: WBC 12.8 H, RBC 4.18 L, Hgb 10.3 L, Hct 35.0 L, MCV 83.7, MCH 24.6 L, MCHC 29.4 L, RDW Std Deviation 60.7 H, RDW Coeff of Naren 20.3 H, Plt Count 434, MPV 11.7, Immature Gran % (Auto) 0.600, Neut % (Auto) 69.3, Lymph % (Auto) 17.2 L, [place] % (Auto) 7.5, Eos % (Auto) 4.9, Baso % (Auto) 0.5, Absolute Neuts (auto) 8.9 H, Absolute Lymphs (auto) 2.20, Nucleated RBC % 0, Differential Comment SCANNED, Anisocytosis 1+, Microcytosis RARE, Macrocytosis RARE 09/29/22 05:53: Sodium 139, Potassium 4.1, Chloride 105, Carbon Dioxide 31.0, Anion Gap 3 L, BUN 23 H, Creatinine 0.66, Estim Creat Clear Calc 37.45, Est GFR (MDRD) Af Amer 110, Est GFR (MDRD) Non-Af 91, BUN/Creatinine Ratio 34.7 H, Glucose 226 H, Calcium 9.1, Total Bilirubin 0.40, AST 19, ALT 12 L, Alkaline Phosphatase 56, Total Protein 6.6, Albumin 1.9 L, Globulin 4.7 H, Albumin/Globulin Ratio 0.4 L 09/29/22 06:15: POC Glucose 221 H Microbiology: Microbiology 09/25/22 09:35 Stool C. difficile DNA Amplification - Final D/C Instructions Discharge Diet: Low fat / Low cholesterol, 2000 Calorie Control Diet and 2000 mg Sodium Diet Discharge Activity: Return to Normal Activity Meaningful Use Info Meaningful Use Diagnoses (Choose all that apply): None applicable Discharge Plan Admission Admit Date/Time: 09/15/22 21:30 Primary Reason for Your Visit: Abdominal pain Attending Provider: Di Garcia Primary Care Provider: Jim Triplett Chi Consulting Providers: Hudson Jo ; Deanna Rivera ; Harish John ; Babatunde Vieira ; Marcelina Jordan Discharge Orders/Prescriptions Prescriptions: Continued polysaccharide iron complex [Ferrex 150] 150 mg iron capsule 150 mg PO DAILY ascorbic acid (vitamin C) [Vitamin C] 500 mg Tablet 500 mg PO DAILY nystatin [Nyamyc] 100,000 unit/gram powder 1 applic TOPICAL BID polyethylene glycol 3350 17 gram/dose powder 17 g PO DAILY atorvastatin 40 MG tablet 40 mg PO QHS clopidogrel 75 MG tablet 75 mg PO DAILY sennosides-docusate sodium [Senna with Docusate Sodium] 8.6-50 mg Tablet 2 tab-cap PO BID acetaminophen 500 mg Tablet 1,000 mg PO Q6H PRN (Reason: Pain) glimepiride 2 mg Tablet 2 mg PO DAILY ondansetron 8 mg Tablet,Disintegrating 8 mg PO Q8H PRN (Reason: Nausea) Glucerna Shake Liquid 120 ml PO TIDCM menthol-zinc oxide [Calmoseptine] 0.44-20.6 % Ointment 1 applic TOPICAL BID@0600,2200 No Action Keith (with collagen) 7-7-1.5 gram powder in packet 2 packet PO BIDCM Referrals / Follow Up: Jim Triplett Chi, MD [Primary Care Provider] - Disposition Disposition (needs filled in before D/C Order can be placed): Long Term Facility Charges/Coding Visit Charges Inpatient E&M: 95704 Disch Hosp
--- NOTE | 2022-09-29 10:30 | PHA.DC.MR ---
Pharmacy Service has performed discharge medication reconciliation for this patient. The patient's discharge medication list was reviewed for discrepancies and discrepancies were resolved. Home Medications ascorbic acid (vitamin C) 500 mg tablet (Vitamin C) 500 mg PO DAILY SUPPLEMENT 09/09/22 atorvastatin 40 mg tablet 40 mg PO QHS CHOLESTEROL 09/09/22 clopidogrel 75 mg tablet 75 mg PO DAILY BLOOD THINNER 09/09/22 nystatin 100,000 unit/gram topical powder (Nyamyc) 1 applic topical BID skin folds, groin, under breasts 09/09/22 polyethylene glycol 3350 17 gram/dose oral powder 17 g PO DAILY STOOL 09/09/22 polysaccharide iron complex 150 mg iron capsule (Ferrex) 150 mg PO DAILY iron 09/09/22 acetaminophen 500 mg tablet 1,000 mg PO Q6H PRN Pain 09/15/22 glimepiride 2 mg tablet 2 mg PO DAILY DIABETES 09/15/22 menthol 0.44 %-zinc oxide 20.6 % topical ointment (Calmoseptine) 1 applic topical BID@0600,2200 09/15/22 nut.tx.gluc.intol,lac-free,soy (Glucerna Shake oral liquid) 120 ml PO TIDCM 09/15/22 ondansetron 8 mg disintegrating tablet 8 mg PO Q8H PRN Nausea 09/15/22 sennosides 8.6 mg-docusate sodium 50 mg tablet (Senna with Docusate Sodium) 2 tab-cap PO BID STOOL 09/15/22 arginine 7 gram-glutam 7 gram-CaHMB 1.5 [id number]-wtzol-ed-min oral pwd pkt (Keith (with collagen)) 2 packet PO BIDCM #0 ea 09/29/22
[2022-09-29] MEDS: HYDROcodone Bitartrate/Apap 5/325 Tablet PO (10:38)
[2022-09-29 11:00] VITALS: O2SAT 95
--- NOTE | 2022-09-29 11:03 | CASEMGMT ---
Social Work? MAYDA notified pt and pt daughter, Carissa, of discharge to TCU today. SW faxed all discharge orders to TCU. SW made copies of discharge orders and placed on pt chart. Sent original orders in envelope with pt upon discharge.? ? Disposition: [facility], skilled level of care? DONA Matson?
[2022-09-29 11:23] VITALS: BP 103/53; PULSE 78; RESP 16; TEMP 36.6; O2SAT 95
[2022-09-29 11:30] LABS: Bedside Glucose 300 mg/dL (74-106)
== END 2022-09-29 13:25 | disposition skilled nursing facility (03) | DRG 329 ==
LOC: ED 21:26 → PCU 21:47 → ICU 09-16 13:48 → MS3 09-18 09:54
PROVIDERS: Anesthesiology; Internal Medicine; Internal Medicine Critical Care Medicine; Surgery; Emergency Provider Emergency Medicine; PCP Family Medicine Geriatric Medicine; Visit Provider Internal Medicine
PROC: 0DTF0ZZ Resection of Right Large Intestine, Open Approach (ICD-10-PCS; CPT 49000; principal; 2022-09-16 10:40)
DX: C18.2 Malignant neoplasm of ascending colon (principal); J18.9 Pneumonia, unspecified organism; J96.01 Acute respiratory failure with hypoxia; E43 Unspecified severe protein-calorie malnutrition; J96.12 Chronic respiratory failure with hypercapnia; K56.609 Unspecified intestinal obstruction, unspecified as to partial versus complete obstruction; E66.2 Morbid (severe) obesity with alveolar hypoventilation; Z68.42 Body mass index [BMI] 45.0-49.9, adult; E87.3 Alkalosis; J90 Pleural effusion, not elsewhere classified; K91.872 Postprocedural seroma of a digestive system organ or structure following a digestive system procedure; E27.8 Other specified disorders of adrenal gland; E11.9 Type 2 diabetes mellitus without complications; K56.41 Fecal impaction; D50.0 Iron deficiency anemia secondary to blood loss (chronic); D50.9 Iron deficiency anemia, unspecified; I10 Essential (primary) hypertension; E78.5 Hyperlipidemia, unspecified; D63.0 Anemia in neoplastic disease; E87.6 Hypokalemia; E88.09 Other disorders of plasma-protein metabolism, not elsewhere classified; R62.7 Adult failure to thrive; Z79.84 Long term (current) use of oral hypoglycemic drugs; Z66 Do not resuscitate; Z79.02 Long term (current) use of antithrombotics/antiplatelets; Z86.73 Personal history of transient ischemic attack (TIA), and cerebral infarction without residual deficits; R53.81 Other malaise; Z95.5 Presence of coronary angioplasty implant and graft
CPT/HCPCS: 36415; 36600; 71045; 71260; 74018; 74177; 76604; 80048; 80053; 80076; 82378; 82550; 82803; 82962; 83036; 83615; 83690; 84134; 84156; 84478; 85025; 85610; 85730; 86850; 86900; 86901; 86920; 86922; 87426; 87493; 88309; 88341; 88342; 93005; 94002; 94003; 94660; 94762; 97110; 97116; 97162; 97166; 97530; 97535; 99251; 99285; J7030; J7120; Q9967; A4216; G0463; J1940; J2405; J3010

== ENCOUNTER 2022-09-29 13:44 | Inpatient (IN) | payer MEDICARE, SELFPAY ==
[2022-09-29 13:55] VITALS: BP 131/46; PULSE 84; RESP 14; TEMP 37.2; O2SAT 94; BMI 39.6
--- NOTE | 2022-09-29 15:54 | CASEMGMT ---
Social Work Met with patient and dtr present in room. Both are known to this worker from previous visit. Confirmed no changes to MOLST, code status or initial assessment. Dtr stated she is working with [employer] on providing documents for Medicaid. Pts goal is to return home living with dtr, but open to SNF stay if needed. Educated on [employer] insurance with [employer] 09/30 and continued stay is not guaranteed with each review. Pt scored 1115 on BIMS and dtr also mentioned pt's memory is poor since hospital admission. Order entered for [facility] to continue to follow. Violeta Gentile, MEDICAL RECORD SPECIALIST MEAT APPRENTICE
[2022-09-29] MEDS: Juven (unflavored) Packet 2 PACKET PO (17:55)
[2022-09-29] MEDS: Senna/Docusate Sodium 1 Tablet 2 TABLET PO (17:56)
[2022-09-29] MEDS: Nystatin Powder 15gm Bottle 1 APPLIC TOPICAL (17:56)
[2022-09-29] MEDS: Glucerna Shake 120 ML LIQUID PO (17:58)
--- NOTE | 2022-09-29 19:41 | HP.PCM_ITS ---
HPI - General General Date of Admission: 09/29/22 Date of Service: 09/29/22 Chief Complaint: Here for rehab. HPI Narrative YECENIA LAZAR, is a 82 Female who presents with followin09/15/2022 TCU resident presents to [facility] Emergency Department with nausea/vomiting, rule out bowel obstruction. Zofran, Morphine, gentle IV fluids given. Hemoglobin 9.9, CMP okay, Lipase normal. CT abdomen/pelvis showed 5.5cm x 3.9cm apical core type lesion around the hepatic flexure of colon causing colonic obstruction. Dr. Rivera recommend nasogastric tube. 09/15/2022 Admit to Hospital. Prepare for surgery. 09/16/2022 Dr. Rivera performed open right hemicolectomy. 09/16/2022 On ventilator, unable to extubate postoperatively. 09/17/2022 Dr. John recommended Lasix challenge, extubate following Lasix, wean supplemental oxygen. 09/17/2022 Extubated, NG removed. Ice chips, water. Out of bed to chair. 09/18/2022 Medically stable. 09/19/2022 On oxygen, no flatus, has bowel sounds. On ice chips. Plan TCU on discharge. 09/20/2022 Ice chips, no bowel movement. 09/21/2022 Abdominal pain, passing gas. Pulsox 95% on 2 liters oxygen per nasal cannula. 09/22/2022 Tolerating clears, no bowel movement. VBG for elevated bicarb to evaluate CO2 retention. 09/23/2022 Feels better, abdominal pain improved. CT abdomen/pelvis, post surgical changes, right adrenal nodule 2cm, bilateral pleural effusion, bibasilar infiltrates/atelectasis right worse than left. 09/24/2022 Bowel movement, advance diet. Pathology showed invasive adenocarcinoma, margins clear, lymph nodes negative for metastasis. IR thoracentesis ordered for pleural effusion. 09/24/2022 Restart Plavix. 09/25/2022 Advance diet. IR unable to perform thoracentesis due to lack of fluid. 09/26/2022 Superior incision dehisced, draining. 09/27/2022 Tolerating diet, moving bowels, passing gas, discharge from wound. 09/29/2022 Admit to TCU with debility, here for rehabilitation, strengthening, prior to discharge home alone. [facility] Medical History (Updated 09/29/22 @ 19:[address] Jim Triplett MD) Anemia Diabetes Stroke TIA (transient ischemic attack) Type II diabetes mellitus Home Medications ascorbic acid (vitamin C) 500 mg tablet (Vitamin C) 500 mg PO DAILY SUPPLEMENT 09/09/22 [History Last Taken 09/15/22 05:41] atorvastatin 40 mg tablet 40 mg PO QHS CHOLESTEROL 09/09/22 [History Last Taken 09/14/22 21:20] clopidogrel 75 mg tablet 75 mg PO DAILY BLOOD THINNER 09/09/22 [History Last Taken 09/15/22 05:41] nystatin 100,000 unit/gram topical powder (Nyamyc) 1 applic topical BID skin folds, groin, under breasts 09/09/22 [History Last Taken 09/15/22 18:25] polyethylene glycol 3350 17 gram/dose oral powder 17 g PO DAILY STOOL 09/09/22 [History Last Taken 09/15/22 05:41] polysaccharide iron complex 150 mg iron capsule (Ferrex) 150 mg PO DAILY iron 09/09/22 [History Last Taken 09/15/22 05:41] acetaminophen 500 mg tablet 1,000 mg PO Q6H PRN Pain 09/15/22 [History Last Taken 09/15/22 11:07] glimepiride 2 mg tablet 2 mg PO DAILY DIABETES 09/15/22 [History Last Taken 09/13/22 08:00] menthol 0.44 %-zinc oxide 20.6 % topical ointment (Calmoseptine) 1 applic topical BID@0600,2200 barrier cream 09/15/22 [History Last Taken 09/15/22 05:43] nut.tx.gluc.intol,lac-free,soy (Glucerna Shake oral liquid) 120 ml PO TIDCM supplement 09/15/22 [History Last Taken 09/15/22 12:34] ondansetron 8 mg disintegrating tablet 8 mg PO Q8H PRN Nausea 09/15/22 [History Last Taken 09/15/22 15:10] sennosides 8.6 mg-docusate sodium 50 mg tablet (Senna with Docusate Sodium) 2 tab-cap PO BID STOOL 09/15/22 [History Last Taken 09/15/22 05:41] arginine 7 gram-glutam 7 gram-CaHMB 1.5 [id number]-min oral pwd pkt (Keith (with collagen)) 2 packet PO BIDCM supplement 09/29/22 [History Last Taken Unknown] Allergy/AdvReac Type Severity Reaction Status Date / Time No Known Allergies Allergy Verified 09/15/22 18:22 Family History Mother , at 91. Dementia Father , at 76. Cancer Alcohol abuse Sister Parkinson disease Surgical History (Updated 09/29/22 @ 19:[address] Jim Triplett MD) History of hernia repair History of right hemicolectomy History of right hip replacement History of total left hip replacement Social History household members: children and other details: Daughter Carissa. Smoking Status: Never smoker alcohol intake: never substance use type: does not use ROS Constitutional Constitutional: Denies chills, fever(s) or weight gain ENT HEENT: Denies headache(s), nasal congestion or nasal discharge Cardiovascular Cardiovascular: Denies chest pain or palpitations Respiratory/Chest Respiratory/Chest: Denies cough, excessive phlegm production or shortness of breath with exertion Gastrointestinal Gastrointestinal: Denies abdominal pain, nausea or vomiting Genitourinary Genitourinary: Denies dysuria Musculoskeletal Musculoskeletal: Denies joint pain or joint swelling Integumentary Integumentary: Denies rash or wounds Neurologic Neurologic: Denies focal weakness, numbness or tingling Psychiatric Psychiatric: Denies anxiety, auditory hallucinations, depression, homicidal ideation or suicidal ideation Vital Signs Vital Signs Vital Signs: 09/29/22 13:55 09/29/22 13:55 Temperature 98.9 F Temperature Source Oral Pulse Rate 84 Pulse Rhythm Regular Pulse Strength Normal (2+) Respiratory Rate 14 Respiratory Effort Normal Non-Labored Respiratory Depth Normal Respiratory Pattern Normal Blood Pressure 131/46 H Blood Pressure Mean 74 Blood Pressure Source Monitor Blood Pressure Position Semi-Fowlers Blood Pressure Location Left Arm Pulse Ox 94 Oxygen Delivery Method Room Air Room Air Weight Weight: 104.9 kg Body Mass Index (BMI) 39.6 Physical Exam Const alert General Appearance: cooperative HEENT normocephalic Eyes PERRL and EOMs intact bilaterally Neck supple, no JVD and no carotid bruits Resp normal respiratory effort, normal air movement and clear to auscultation bilaterally Cardio regular rate and regular rhythm GI normal to inspection, nondistended, normoactive bowel sounds, non-tender and non-distended GI Narrative: Abdominal wound per wound nurse. Extremity normal capillary refill General Extremity: Negative for edema Skin no rashes or lesions noted General Skin Exam: no breakdown Psych affect normal Appearance: appropriate Assessment & Plan Assessment/Plan (1) Debility: (2) Large bowel obstruction: (3) Primary adenocarcinoma of ascending colon: (4) Diabetes mellitus: (5) Hyperlipidemia: (6) Stroke: (7) Iron deficiency anemia: PLAN: Plan 82 year old female with below past medical history hospitalized for large bowel obstruction, underwent open right hemicolectomy with Dr. Rivera 09/16/2022 showing adenocarcinoma of ascending colon, admitted to TCU with debility, here for rehabilitation, strengthening, prior to discharge home alone. * Debility - PT/OT. * Cognition - ST. * Pain - Tylenol 1000mg q6h prn pain (1-10). * Bowel - Miralax 17gm daily, senna/colace 2 tablets bid. * Adult immunization - Administer pneumonia vaccine, covid19 vaccine, flu vaccine as appropriate. * DVT prophylaxis - Hold, anemia. * Iron deficiency anemia - Ferrex 150mg daily, Vitamin C 500mg daily. * Hyperlipidemia - Atorvastatin 40mg qhs. * Stroke - Plavix 75mg daily. * Diabetes Mellitus II - Glimepiride 2mg daily. * Nutrition - Glucerna shake 120ml po tid, Keith 2 packets bidcm. * Skin irritation - Calmoseptine topical bid. * Tinea corporis - Nystatin powder topical bid. * Nausea - Zofran 8mg q8h prn. * Abdominal wound - Vitamin A topical daily, wound nurse.
[2022-09-29] MEDS: Atorvastatin Calcium 40 MG Tablet PO (20:48)
[2022-09-29] MEDS: Menthol/Lanolin/Calamine/Znox 113 GM Tube 1 APPLIC TOPICAL (20:53)
[2022-09-29] MEDS: Vitamins A and D Ointment 1 APPLIC TOPICAL (20:59)
--- NOTE | 2022-09-29 21:02 | NURSING ---
Dressing changed to abdominal wound per order. Moterate amount of drainage noted to old dressing. A&D ointment to periwound. Patient tolerated well.
--- NOTE | 2022-09-29 23:36 | NURSING ---
Patient previously on Terbinafine cream prior to being sent to [facility]. Bilateral thighs fire red. Note left for Dr. Triplett to see if we can restart cream.
[2022-09-30] MEDS: Iron Polysaccharide Complex 150 MG CAPSULE PO (05:45)
[2022-09-30] MEDS: Polyethylene Glycol 3350 17 GM PACKET PO (05:45)
[2022-09-30] MEDS: Clopidogrel Bisulfate 75 MG Tablet PO (05:45)
[2022-09-30] MEDS: Senna/Docusate Sodium 1 Tablet 2 TABLET PO (05:45)
[2022-09-30] MEDS: Ascorbic Acid 500 MG Tablet PO (05:46)
[2022-09-30 05:59] LABS: Absolute Neutrophil Count 7.4 X10^3/uL (2.0-7.7); Basophil# 0.06 X10^3/uL; Basophil% 0.5 % (0-1); Eosinophil# 0.56 X10^3/uL; Hematocrit 31.3 % (37-47); Hemoglobin 9.5 g/dL (12.0-15.0); Lymphocyte % 17.8 % (19-41); Mean Corp Hgb Conc 30.4 g/dL (32-36); Mean Corpuscular Hgb 25.5 pg (27.0-32.0); Mean Corpuscular Volume 83.9 fL (81-99); Mean Platelet Vol. 11.6 fl (6.2-12.0); Monocyte# 1.25 X10^3/uL; Monocyte% 11.1 % (0-10); NRBC Flagged by Analyzer 0 % (0-5); Neutrophil # 7.35 X10^3/uL (2.7-7.7); Neutrophil % 65.2 % (47-70); POSITIVE MORPHOLOGY YES; Platelet Count 398 K/mm3 (150-450); RBC Distribution Width CV 20.3 % (11.6-14.6); RBC Distribution Width SD 60.8 fl (35.1-43.9); Red Blood Count 3.73 M/mm3 (4.2-5.4); White Blood Count 11.3 K/mm3 (4.4-11.0)
[2022-09-30 06:02] LABS: Differential Indicated SCAN CRITERIA MET
[2022-09-30 06:18] LABS: Anisocytosis 1+; Differential Comment SCANNED; Hypochromasia RARE; Microcytosis 1+
[2022-09-30 06:40] LABS: Bedside Glucose 260 mg/dL (74-106)
[2022-09-30 06:46] LABS: Anion Gap 6 (5-15); BUN 32 mg/dL (7-18); BUN/Creat Ratio 49.4 RATIO (10-20); Calcium,Total 8.8 mg/dL (8.5-10.1); Chloride 102 mmol/L (98-107); Creatinine, Serum 0.65 mg/dL (0.55-1.02); EST Glomerular Filtration Rate 93 mL/min (>60); Est Glom Filt Rate - Afr Amer 113 mL/min (>60); Estimated Creatinine Clearance 37.45 ml/min; Glucose 266 mg/dL (74-106); Potassium 3.8 mmol/L (3.5-5.1); Sodium Level 137 mmol/L (136-145)
[2022-09-30] MEDS: Glucerna Shake 120 ML LIQUID PO ×2 (08:03→12:21)
[2022-09-30] MEDS: Glimepiride 2 MG Tablet PO (08:04)
[2022-09-30] MEDS: Menthol/Lanolin/Calamine/Znox 113 GM Tube 1 APPLIC TOPICAL ×2 (09:23→21:15)
[2022-09-30] MEDS: Nystatin Powder 15gm Bottle 1 APPLIC TOPICAL ×2 (09:23→21:16)
[2022-09-30] MEDS: Tuberculin,Purif.prot.deriv. 50 TU/ML Vial 0.1 ML ID (09:28)
[2022-09-30 10:00] VITALS: PULSE 83; O2SAT 96
--- NOTE | 2022-09-30 10:42 | NURSING ---
Doc Robotham in to see pt changed her dressing. Per doc to change dressing qid or prn.
[2022-09-30] MEDS: Vitamins A and D Ointment 1 APPLIC TOPICAL ×2 (11:27→21:15)
--- NOTE | 2022-09-30 11:30 | PCM.PN.SRG ---
Subjective Subjective Patient is tolerating diet and still having her nutrition drinks as well. Patient's dressing was last changed at 9 PM last night. Objective Data Objective Data Vital Signs: Vital Signs Temp Pulse Resp BP Pulse Ox O2 Del Method 98.9 F 83 14 131/46 H 96 Room Air 09/29/22 13:55 09/30/22 10:00 09/29/22 13:55 09/29/22 13:55 09/30/22 10:00 09/30/22 10:00 Oxygen Delivery Method Room Air Weight: 231 lb 4.238 oz Body Mass Index (BMI) 39.6 Intake & Output: Intake and Output for Last 24 Hours 09/28/22 09/29/22 09/30/22 23:59 23:59 23:59 Intake Total 250 / 250 120 / 120 Balance 250 / 250 120 / 120 Lab / Micro Data Result Diagrams: 09/30/22 05:19 09/30/22 05:19 Labs: Laboratory Results - last 24 hr 09/30/22 05:19: WBC 11.3 H, RBC 3.73 L, Hgb 9.5 L, Hct 31.3 L, MCV 83.9, MCH 25.5 L, MCHC 30.4 L, RDW Std Deviation 60.8 H, RDW Coeff of Naren 20.3 H, Plt Count 398, MPV 11.6, Immature Gran % (Auto) 0.400, Neut % (Auto) 65.2, Lymph % (Auto) 17.8 L, [place] % (Auto) 11.1 H, Eos % (Auto) 5.0, Baso % (Auto) 0.5, Absolute Neuts (auto) 7.4, Absolute Lymphs (auto) 2.00, Nucleated RBC % 0, Differential Comment SCANNED, Hypochromasia RARE, Anisocytosis 1+, Microcytosis 1+ 09/30/22 05:19: Sodium 137, Potassium 3.8, Chloride 102, Carbon Dioxide 29.0, Anion Gap 6, BUN 32 H, Creatinine 0.65, Estim Creat Clear Calc 37.45, Est GFR (MDRD) Af Amer 113, Est GFR (MDRD) Non-Af 93, BUN/Creatinine Ratio 49.4 H, Glucose 266 H, Calcium 8.8 09/30/22 06:17: POC Glucose 260 H Physical Exam Const no apparent distress Resp normal respiratory effort Cardio regular rate GI GI Narrative: Soft, nondistended, tender near incision. Superior incision open with good granulation tissue. Wet gauze was removed?last changed at 9 PM. Skin protective ointment was placed around on the normal skin. Lower midline incision reena were also removed at bedside. Assessment & Plan Assessment/Plan (1) S/P right hemicolectomy: (2) Primary adenocarcinoma of ascending colon: PLAN: Plan Patient is tolerating regular diet as well as Premier protein shakes-- we will discuss protein amount with dietitian. Patient's dressing was last changed at 9 PM and it was wet this morning but seems like it is much improved in the last few days. We will continue changing frequently especially in patients up to the chair or works with physical therapy. Out of bed to chair Maria Esther. Deanna Rivera M.D. Pager: [phone] [facility] [address] [place] [address], [facility], [address] [place] [id number] Office: [phone]
--- NOTE | 2022-09-30 11:39 | WOUNDNOTE ---
wound photo: abdomen
--- NOTE | 2022-09-30 12:41 | PHA.CONS_ITS ---
TCU RX Drug Regimen Review Subjective: 82 YOF admitted to TCU s/p hospitalization with surgical procedure done 09/16. Admitted to TCU for strengthening, rehabilitation, and wound care prior to discharge home alone. Objective: Allergies No Known Allergies Allergy (Verified 09/15/22 18:22) Current Medications Generic Name Dose Route Start Last Admin Trade Name Freq PRN Reason Stop Dose Admin Acetaminophen 1,000 mg 09/29/22 13:59 Acetaminophen 500 Mg Tablet PO Q6H PRN Pain 1-10 Ascorbic Acid 500 mg 09/30/22 06:00 09/30/22 05:46 Ascorbic Acid 500 Mg Tablet PO 500 mg DAILY DOMI Administration Atorvastatin Calcium 40 mg 09/29/22 22:00 09/29/22 20:48 Atorvastatin Calcium 40 Mg Tablet PO 40 mg QHS DOMI Administration Calamine/Phenol 1 applic 09/30/22 10:00 09/30/22 09:23 Menthol/Lanolin/Calamine/Znox 113 Gm Tube TOPICAL 1 applic 1000,2200 [facility] Administration Protocol Clopidogrel Bisulfate 75 mg 09/30/22 06:00 09/30/22 05:45 Clopidogrel Bisulfate 75 Mg Tablet PO 75 mg DAILY DOMI Administration Glimepiride 2 mg 09/30/22 08:00 09/30/22 08:04 Glimepiride 2 Mg Tablet PO 2 mg DAILYCM [facility] Administration L-Arginine/L-Glutamine/Calcium HMB 1 packet 09/30/22 17:00 Keith (Unflavored) Packet PO BIDCM [facility] Nutritional Formula (Lactose Free) 120 ml 09/29/22 17:45 09/30/22 12:21 Glucerna Shake 120 Ml Liquid PO 120 ml TIDCM DOMI Administration Nystatin 1 applic 09/30/22 10:00 09/30/22 09:23 Nystatin Powder 15gm Bottle TOPICAL 1 applic 1000,2200 [facility] Administration Protocol Ondansetron HCl 8 mg 09/29/22 14:27 Ondansetron 8 Mg Tablet PO Q8H PRN Nausea Polyethylene Glycol 17 gm 09/30/22 06:00 09/30/22 05:45 Polyethylene Glycol 3350 17 Gm Packet PO 17 gm DAILY DOMI Administration Polysaccharide Iron Complex 150 mg 09/30/22 06:00 09/30/22 05:45 Iron Polysaccharide Complex 150 Mg Capsule PO 150 mg DAILY DOMI Administration Senna/Docusate Sodium 2 tablet 09/29/22 18:00 09/30/22 05:45 Senna/Docusate Sodium 1 Tablet PO 2 tablet BID DOMI Administration Tuberculin PPD 0.1 ml 10/07/22 10:00 Tuberculin,Purif.Prot.Deriv. 50 Tu/Ml Vial ID 10/07/22 10:01 X1 ONE Vitamin A/Vitamin D 1 applic 09/30/22 10:00 09/30/22 11:27 Vitamins A And D Ointment TOPICAL 1 applic 1000,2200 DOMI Administration Protocol Problem List (Last Updated 09/29/22 @ 19:[address] Jim Triplett MD) Iron deficiency anemia (Acute) Stroke (Acute) Hyperlipidemia (Acute) Diabetes mellitus (Acute) Large bowel obstruction (Acute) Debility (Acute) Primary adenocarcinoma of ascending colon (Acute) S/P right hemicolectomy (Acute) Vital Signs Temp Pulse Resp BP Pulse Ox O2 Del Method 98.9 F 83 14 131/46 H 96 Room Air 09/29/22 13:55 09/30/22 10:00 09/29/22 13:55 09/29/22 13:55 09/30/22 10:00 09/30/22 10:00 Oxygen Delivery Method Room Air Weight: 104.9 kg Body Mass Index (BMI) 39.6 Sodium 137 mmol/L (136-145) 09/30/22 05:19 Potassium 3.8 mmol/L (3.5-5.1) 09/30/22 05:19 Chloride 102 mmol/L (98-107) 09/30/22 05:19 Carbon Dioxide 29.0 mmol/L (21.0-32.0) 09/30/22 05:19 Anion Gap 6 (5-15) 09/30/22 05:19 BUN 32 mg/dL (7-18) H 09/30/22 05:19 Creatinine 0.65 mg/dL (0.55-1.02) 09/30/22 05:19 Est GFR (MDRD) Af Amer 113 mL/min (>60) 09/30/22 05:19 Est GFR (MDRD) Non-Af 93 mL/min (>60) 09/30/22 05:19 BUN/Creatinine Ratio 49.4 RATIO (10-20) H 09/30/22 05:19 Glucose 266 mg/dL (74-106) H 09/30/22 05:19 Assessment/Plan: 1. Pain: Tylenol 1000mg PO Q6h PRN Pain 1-10. Please continue to monitor for increased/decreased S/S pain, PRN medication usage. - To date, the patient has utilized zero doses of medication. Pain appears to be controlled at this time. 2. Stroke/HLD History: Lipitor 40mg PO QHS, Plavix 75mg PO Daily. Please continue to monitor H/H, lipid panel annually or sooner if clinically indicated (last 08/2022), S/S bleeding/bruising. 3. Type II Diabetes: Glimepiride 2mg PO Daily. Please continue to monitor for S/S hypoglycemia, Blood glucose, A1c (last 8.4% on 09/16/22). -The patient's A1c is above goal at 8.4%. 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 4. Iron deficiency Anemia: Ferrex 150mg PO Daily, Ascorbic Acid 500mg PO Daily. Please continue to monitor H/H, S/S bleeding/bruising, iron studies as clinically indicated. 5. Nausea: Ondansetron 8mg PO Q8h PRN. Please continue to monitor for improvement in symptoms, PRN medication usage, headache, dizziness. - To date, the patient has utilized zero doses of medication. Nausea appears to be under control at this time. 6. Nutrition/ Wound healing: Keith BID, Glucerna shake TIDCM. Please continue to monitor 7. Skin Integrity/ Abdominal wound: Calmoseptine BID, Nystatin topically BID, A&D ointment BID. Please continue to monitor for skin irritation, redness around wound site, S/S new infectious process. Of note; wound care is following patient to aid with dressing changed at this time. 8. Bowel: Miralax 17g PO Daily, Senna/Docusate 2 tab PO BID. Please continue to monitor for increased/decreased constipation and/or diarrhea. - The patient had a bowel movement 09/30/22 Assessment/Plan for indications treated with psychotropic medications: The patient is not currently on any psychotropic medications at this time. Medical chart and medication regimen reviewed. The following medication irregularities or issues were identified: 1. Type II Diabetes: Glimerpiride 2mg PO Daily, last A1c was 8.4% on 09/16/22. -The patient's A1c is above goal at 8.4%. 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 Date of Note:: 09/30/22
--- NOTE | 2022-09-30 12:53 | NURSING ---
Metal Casket Maker Note; Activity Asset Complete
[2022-09-30] MEDS: Ondansetron 8 MG Tablet PO (14:23)
[2022-09-30 15:43] VITALS: BP 151/75; PULSE 84; RESP 16; TEMP 37.3; O2SAT 99
[2022-09-30] MEDS: Juven (unflavored) Packet 1 PACKET PO (16:56)
[2022-09-30] MEDS: Mirtazapine 15 MG Tablet 7.5 MG PO (20:08)
[2022-09-30] MEDS: Atorvastatin Calcium 40 MG Tablet PO (20:08)
[2022-09-30] MEDS: Acetaminophen 500 MG Tablet 1000 MG PO (21:08)
--- NOTE | 2022-09-30 21:17 | NURSING ---
Dressing on abdomen changed at this time. Periwound reddened; ointment applied as ordered. Moderate amount of serosanguineous drainage noted on old dressing. Pt tolerated dressing change well.
[2022-10-01] MEDS: Senna/Docusate Sodium 1 Tablet 2 TABLET PO (04:59)
[2022-10-01] MEDS: Ascorbic Acid 500 MG Tablet PO (05:00)
[2022-10-01] MEDS: Clopidogrel Bisulfate 75 MG Tablet PO (05:00)
[2022-10-01] MEDS: Polyethylene Glycol 3350 17 GM PACKET PO (05:00)
[2022-10-01] MEDS: Iron Polysaccharide Complex 150 MG CAPSULE PO (05:01)
[2022-10-01 06:40] LABS: Bedside Glucose 206 mg/dL (74-106)
[2022-10-01] MEDS: Glimepiride 2 MG Tablet PO (08:11)
[2022-10-01] MEDS: Juven (unflavored) Packet 1 PACKET PO ×2 (08:11→16:31)
[2022-10-01] MEDS: Vitamins A and D Ointment 1 APPLIC TOPICAL ×2 (10:10→22:04)
[2022-10-01] MEDS: Menthol/Lanolin/Calamine/Znox 113 GM Tube 1 APPLIC TOPICAL ×2 (10:11→22:00)
[2022-10-01] MEDS: Nystatin Powder 15gm Bottle 1 APPLIC TOPICAL ×2 (10:12→22:00)
--- NOTE | 2022-10-01 13:00 | NURSING ---
IN TO SEE PT AT 1150 AM. JOSE LUIS ACUÑA/WOUND NURSE CHANGED PT DRESSING THIS MORNING.
--- NOTE | 2022-10-01 14:31 | CHAPLAIN ---
Type of Pastoral Visit ___ Initial Visit _x__ Follow-up Visit ___ On-call Visit ___ General Patient Visit ___ Spiritual Assessment ___ Family Conference ___ Bereavement ___ Rapid Response ___ Code Blue ___ Other (describe below) Pastoral Care Referral From _x__ Patient ___ Family ___ Nurse ___ Physician ___ Court Officer ___ Nurses' Aide ___ Other (describe below) Sacrament/Intervention _x__ Active listening ___ Anointing ___ Yarsanism ___ Bereavement ___ Communion ___ Sierra exploration ___ _x__ Life review _x__ Prayer ___ Reconciliation ___ Sacrament of Sick ___ Supportive presence ___ Wedding ___ Other (describe below) Pastoral Comments follow up to patient that was seen previously in [facility]; 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
[2022-10-01 14:44] VITALS: BP 131/94; PULSE 84; RESP 14; TEMP 37.3; O2SAT 90
--- NOTE | 2022-10-01 16:53 | NURSING ---
dressing changed to pt abdominal per orders. pt slept threw dressing change. moderate/yellow drainage.
[2022-10-01] MEDS: Atorvastatin Calcium 40 MG Tablet PO (21:59)
[2022-10-01] MEDS: Mirtazapine 15 MG Tablet 7.5 MG PO (21:59)
[2022-10-02] MEDS: Polyethylene Glycol 3350 17 GM PACKET PO (05:24)
[2022-10-02] MEDS: Clopidogrel Bisulfate 75 MG Tablet PO (05:24)
[2022-10-02] MEDS: Iron Polysaccharide Complex 150 MG CAPSULE PO (05:24)
[2022-10-02] MEDS: Ascorbic Acid 500 MG Tablet PO (05:24)
[2022-10-02 06:55] LABS: Bedside Glucose 188 mg/dL (74-106)
[2022-10-02] MEDS: Glimepiride 2 MG Tablet PO (07:48)
[2022-10-02] MEDS: Juven (unflavored) Packet 1 PACKET PO ×2 (07:48→16:58)
[2022-10-02] MEDS: Nystatin Powder 15gm Bottle 1 APPLIC TOPICAL ×2 (09:53→21:55)
[2022-10-02] MEDS: Menthol/Lanolin/Calamine/Znox 113 GM Tube 1 APPLIC TOPICAL ×2 (09:53→21:54)
[2022-10-02] MEDS: Vitamins A and D Ointment 1 APPLIC TOPICAL (09:54)
--- NOTE | 2022-10-02 10:43 | PCM.PN.BLA ---
Progress Note Patient still tolerating diet and having bowel function. Patient appears to have less drainage from her wound as wound has not been need to be drained near as often as it had a couple days ago. Likely due to improve nutrition. abd: Superior wound open packed with dry to dry gauze. And 4 x 4 and ABD pad over the top. Good granulation tissue. ---Continue regular diet with protein drinks. ---Continue labeling dressing when changed hopefully in the future will be able to cut back or do the wet-to-dry dressings twice a day. Deanna Rivera M.D. Pager: [phone] [facility] [address] [place] [address], [address] [place] [address] Office: [phone]
[2022-10-02 14:46] VITALS: BP 160/55; PULSE 65; RESP 16; TEMP 36.2; O2SAT 94
[2022-10-02] MEDS: Atorvastatin Calcium 40 MG Tablet PO (21:52)
[2022-10-02] MEDS: Mirtazapine 15 MG Tablet 7.5 MG PO (21:52)
[2022-10-03] MEDS: Vitamins A and D Ointment 1 APPLIC TOPICAL ×3 (00:01→10:25)
--- NOTE | 2022-10-03 00:04 | NURSING ---
Dressing changed to abdominal wound at this time. Moderate amount of serosanguineous drainage noted on old dressing. Periwound reddened. A&D ointment applied as ordered. Patient tolerated well.
[2022-10-03] MEDS: Iron Polysaccharide Complex 150 MG CAPSULE PO (05:47)
[2022-10-03] MEDS: Ascorbic Acid 500 MG Tablet PO (05:47)
[2022-10-03] MEDS: Clopidogrel Bisulfate 75 MG Tablet PO (05:47)
--- NOTE | 2022-10-03 06:02 | NURSING ---
Patient sitting in recliner. Dressing changed to abdominal wound. Moderate amount of serosanguineous drainage noted on old dressing and ABD. Redness continues around periwound. A&D ointment applied as ordered. Patient tolerated well.
[2022-10-03 06:30] LABS: Bedside Glucose 238 mg/dL (74-106)
[2022-10-03] MEDS: Glimepiride 2 MG Tablet PO (08:15)
[2022-10-03] MEDS: Juven (unflavored) Packet 1 PACKET PO ×2 (08:15→16:32)
[2022-10-03] MEDS: Menthol/Lanolin/Calamine/Znox 113 GM Tube 1 APPLIC TOPICAL ×2 (10:26→22:15)
[2022-10-03] MEDS: Nystatin Powder 15gm Bottle 1 APPLIC TOPICAL ×2 (10:26→22:16)
[2022-10-03 16:00] VITALS: BP 151/73; PULSE 89; RESP 20; TEMP 36.9; O2SAT 94
[2022-10-03 22:11] VITALS: PULSE 85; RESP 18; O2SAT 98
[2022-10-03] MEDS: Atorvastatin Calcium 40 MG Tablet PO (22:13)
[2022-10-03] MEDS: Losartan Potassium 100 MG Tablet PO (22:13)
[2022-10-03] MEDS: Mirtazapine 15 MG Tablet 7.5 MG PO (22:13)
[2022-10-04] MEDS: Vitamins A and D Ointment 1 APPLIC TOPICAL ×4 (00:03→20:23)
--- NOTE | 2022-10-04 00:03 | NURSING ---
Dressing changed to abdominal wound at this time. Fluffed 4x4, covered with 4x4 and ABD and secured with medipore tape. Moderate amount of serosanguineous drainage noted on old dressing. Periwound reddened. A&D ointment applied as ordered. Patient tolerated well.
--- NOTE | 2022-10-04 01:09 | NURSING ---
Patient noted to have nose bleed with moderate amount of blood. Note left for Dr. Triplett.
[2022-10-04 06:04] VITALS: PULSE 74; RESP 16; O2SAT 95
[2022-10-04] MEDS: Senna/Docusate Sodium 1 Tablet PO (06:30)
[2022-10-04] MEDS: Ascorbic Acid 500 MG Tablet PO (06:30)
[2022-10-04] MEDS: Iron Polysaccharide Complex 150 MG CAPSULE PO (06:30)
[2022-10-04 06:56] LABS: Bedside Glucose 232 mg/dL (74-106)
[2022-10-04] MEDS: Glimepiride 2 MG Tablet PO (08:02)
[2022-10-04] MEDS: Juven (unflavored) Packet 1 PACKET PO ×2 (08:02→17:18)
[2022-10-04] MEDS: Nystatin Powder 15gm Bottle 1 APPLIC TOPICAL ×2 (10:09→20:24)
[2022-10-04] MEDS: Menthol/Lanolin/Calamine/Znox 113 GM Tube 1 APPLIC TOPICAL ×2 (10:09→20:24)
--- NOTE | 2022-10-04 11:13 | WOUNDNOTE ---
wound photo: abdomen
--- NOTE | 2022-10-04 12:49 | NURSING ---
IN TO SEE PT, ARIANNE,RN/WOUND NURSE CHANGED DRESSING. SEE NEW ORDERS FOR WOUND CARE.
--- NOTE | 2022-10-04 13:04 | PCM.PN.BLA ---
Progress Note Patient still tolerating diet and having bowel function. minimal drainage from incision abd: Superior wound open packed with dry to dry gauze. And 4 x 4 and ABD pad over the top. Good granulation tissue. ---Continue regular diet with protein drinks. ---will change dressing to wet to dry BID Deanna Rivera M.D. Pager: [phone] [facility] [address] [place] [address], [address] [place] [address] Office: [phone]
[2022-10-04 16:00] VITALS: BP 135/66; PULSE 87; RESP 20; TEMP 37.1; O2SAT 93
[2022-10-04] MEDS: Atorvastatin Calcium 40 MG Tablet PO (20:12)
[2022-10-04] MEDS: Mirtazapine 15 MG Tablet 7.5 MG PO (20:13)
[2022-10-04] MEDS: Losartan Potassium 100 MG Tablet PO (20:13)
[2022-10-05] MEDS: Iron Polysaccharide Complex 150 MG CAPSULE PO (04:29)
[2022-10-05] MEDS: Senna/Docusate Sodium 1 Tablet PO (04:29)
[2022-10-05] MEDS: Polyethylene Glycol 3350 17 GM PACKET PO (04:29)
[2022-10-05] MEDS: Ascorbic Acid 500 MG Tablet PO (04:29)
[2022-10-05 06:56] LABS: Bedside Glucose 220 mg/dL (74-106)
[2022-10-05 07:45] VITALS: O2SAT 97
[2022-10-05] MEDS: Glimepiride 2 MG Tablet PO (07:52)
[2022-10-05] MEDS: Juven (unflavored) Packet 1 PACKET PO ×2 (07:52→17:14)
[2022-10-05] MEDS: Menthol/Lanolin/Calamine/Znox 113 GM Tube 1 APPLIC TOPICAL ×2 (09:51→21:58)
--- NOTE | 2022-10-05 11:30 | CASEMGMT ---
Social Work BIMS (08/05) and PHQ-9 (01/17) completed for MDS assessment. Violeta Gentile MSW PUBLIC ADDRESS SYSTEM INSTALLER
[2022-10-05] MEDS: Nystatin Powder 15gm Bottle 1 APPLIC TOPICAL ×2 (12:56→22:07)
[2022-10-05] MEDS: Vitamins A and D Ointment 1 APPLIC TOPICAL ×2 (12:56→23:22)
[2022-10-05 13:46] VITALS: BP 124/49; PULSE 88; RESP 16; TEMP 36.2; O2SAT 92
--- NOTE | 2022-10-05 14:02 | NURSING ---
DRESSING CHANGED TO PT ABDOMINAL WOUND AT 1300 PER ORDER. MODERATE/SEROSANGUINEOUS DRAINAGE. GENTLE CLEANED AREA AND DRIED. REPACKED WITH MOIST NS GAUZE,DRY GAUZE AND ABD ON TOP AND TAPED WITH METAPORE TAPE. PT TOLERATED WELL
[2022-10-05] MEDS: Mirtazapine 15 MG Tablet 7.5 MG PO (22:02)
[2022-10-05] MEDS: Losartan Potassium 100 MG Tablet PO (22:03)
[2022-10-05] MEDS: Atorvastatin Calcium 40 MG Tablet PO (22:03)
[2022-10-05 22:09] VITALS: BP 115/52; PULSE 81; RESP 16
[2022-10-05 23:33] VITALS: PULSE 82; RESP 16; O2SAT 95
[2022-10-06] MEDS: Vitamins A and D Ointment 1 APPLIC TOPICAL ×3 (05:30→20:59)
[2022-10-06] MEDS: Iron Polysaccharide Complex 150 MG CAPSULE PO (05:30)
[2022-10-06] MEDS: Ascorbic Acid 500 MG Tablet PO (05:30)
[2022-10-06] MEDS: Polyethylene Glycol 3350 17 GM PACKET PO (05:30)
[2022-10-06] MEDS: Senna/Docusate Sodium 1 Tablet PO (05:30)
--- NOTE | 2022-10-06 05:51 | NURSING ---
Dressing changed to abdominal wound at this time. Fluffed 4x4 with normal saline, covered with 4x4 and ABD and secured with medipore tape. Moderate amount of serosanguineous drainage noted on old dressing. Periwound reddened. A&D ointment applied as ordered. Patient tolerated well.
[2022-10-06 06:56] LABS: Bedside Glucose 206 mg/dL (74-106)
[2022-10-06] MEDS: Glimepiride 2 MG Tablet PO (09:14)
[2022-10-06] MEDS: Juven (unflavored) Packet 1 PACKET PO ×2 (09:14→16:47)
[2022-10-06] MEDS: Nystatin Powder 15gm Bottle 1 APPLIC TOPICAL ×2 (09:16→21:46)
[2022-10-06] MEDS: Menthol/Lanolin/Calamine/Znox 113 GM Tube 1 APPLIC TOPICAL ×2 (09:16→21:45)
--- NOTE | 2022-10-06 11:14 | NURSING ---
Semiconductor Manufacturing Technician Note; MDS complete
--- NOTE | 2022-10-06 13:51 | CASEMGMT ---
Social Work - TCU Received update that insurance has approved continued stay with next review date 10.18.22. Called patient's daughter Carissa Carreon ([phone]) and updated. Carissa expressed much appreciation for update and reviewed goal to get patient home if able. Carissa reports to visit patient twice a day and will go over with patient at next visit. Identified goal for discharge is home. Social work to continue to follow and assist for discharge planning and support as needed. -ANABELLE Phipps, SPINNING MULE OPERATOR
--- NOTE | 2022-10-06 14:56 | WOUNDNOTE ---
Abdominal dressing was changed this am. Pt is in the common area playing [employer] at this time. will continue to monitor.
[2022-10-06 15:43] VITALS: BP 122/91; PULSE 80; RESP 16; TEMP 36.2; O2SAT 95
[2022-10-06 20:59] VITALS: PULSE 77; RESP 18; O2SAT 94
[2022-10-06] MEDS: Losartan Potassium 100 MG Tablet PO (21:43)
[2022-10-06] MEDS: Atorvastatin Calcium 40 MG Tablet PO (21:43)
[2022-10-06] MEDS: Mirtazapine 15 MG Tablet 7.5 MG PO (21:43)
[2022-10-06 22:30] LABS: Bedside Glucose 265 mg/dL (74-106)
[2022-10-07] MEDS: Vitamins A and D Ointment 1 APPLIC TOPICAL ×2 (03:33→13:24)
--- NOTE | 2022-10-07 03:33 | NURSING ---
During patient rounds, patient had removed abdominal dressing. Dressing found on floor. Patient asking why she is here and if her cold is ever going to get better? Reminded patient on admission reason. Patient then able to answer questions appropriately. Fluffed 4x4 with normal saline, covered with 4x4 and ABD and secured with medipore tape. Moderate amount of serosanguineous drainage noted on old dressing. Periwound reddened. A&D ointment applied as ordered. Patient tolerated well.
[2022-10-07 05:04] LABS: Absolute Lymphocyte Count 2.38 X10^3/uL (0.83-4.51); Absolute Neutrophil Count 5.5 X10^3/uL (2.0-7.7); Basophil# 0.06 X10^3/uL; Basophil% 0.6 % (0-1); Eosinophil# 0.63 X10^3/uL; Eosinophils% 6.7 % (0-5); Hematocrit 31.4 % (37-47); Hemoglobin 9.5 g/dL (12.0-15.0); Lymphocyte # 2.38 X10^3/ul (0.83-4.51); Lymphocyte % 25.5 % (19-41); Mean Corp Hgb Conc 30.3 g/dL (32-36); Mean Corpuscular Hgb 25.8 pg (27.0-32.0); Mean Corpuscular Volume 85.3 fL (81-99); Mean Platelet Vol. 11.8 fl (6.2-12.0); Monocyte% 7.5 % (0-10); NRBC Flagged by Analyzer 0 % (0-5); Neutrophil # 5.54 X10^3/uL (2.7-7.7); Neutrophil % 59.3 % (47-70); POSITIVE MORPHOLOGY YES; Platelet Count 373 K/mm3 (150-450); RBC Distribution Width CV 21.1 % (11.6-14.6); RBC Distribution Width SD 64.4 fl (35.1-43.9); Red Blood Count 3.68 M/mm3 (4.2-5.4); White Blood Count 9.4 K/mm3 (4.4-11.0)
[2022-10-07 05:12] LABS: Differential Indicated SCAN CRITERIA MET
[2022-10-07] MEDS: Senna/Docusate Sodium 1 Tablet PO (05:33)
[2022-10-07] MEDS: Iron Polysaccharide Complex 150 MG CAPSULE PO (05:33)
[2022-10-07] MEDS: Ascorbic Acid 500 MG Tablet PO (05:33)
[2022-10-07] MEDS: Polyethylene Glycol 3350 17 GM PACKET PO (05:33)
[2022-10-07 05:39] LABS: Anion Gap 6 (5-15); BUN 52 mg/dL (7-18); Calcium,Total 9.6 mg/dL (8.5-10.1); Chloride 108 mmol/L (98-107); Creatinine, Serum 0.68 mg/dL (0.55-1.02); EST Glomerular Filtration Rate 87 mL/min (>60); Est Glom Filt Rate - Afr Amer 106 mL/min (>60); Estimated Creatinine Clearance 37.45 ml/min; Glucose 231 mg/dL (74-106); Potassium 4.1 mmol/L (3.5-5.1); Sodium Level 139 mmol/L (136-145)
[2022-10-07 05:42] LABS: Anisocytosis 2+
[2022-10-07 06:50] LABS: Bedside Glucose 239 mg/dL (74-106)
[2022-10-07] MEDS: Juven (unflavored) Packet 1 PACKET PO ×2 (07:53→16:38)
[2022-10-07] MEDS: Glimepiride 2 MG Tablet PO (07:53)
[2022-10-07] MEDS: Menthol/Lanolin/Calamine/Znox 113 GM Tube 1 APPLIC TOPICAL ×2 (09:29→21:01)
[2022-10-07] MEDS: Nystatin Powder 15gm Bottle 1 APPLIC TOPICAL ×2 (09:29→21:01)
[2022-10-07 10:35] VITALS: PULSE 73; RESP 18; O2SAT 95
[2022-10-07] MEDS: Tuberculin,Purif.prot.deriv. 50 TU/ML Vial 0.1 ML ID (10:42)
[2022-10-07 13:55] VITALS: BP 130/50; PULSE 79; RESP 16; TEMP 37.1; O2SAT 92
--- NOTE | 2022-10-07 15:03 | WOUNDNOTE ---
wound photo: abdomen
[2022-10-07] MEDS: Atorvastatin Calcium 40 MG Tablet PO (21:07)
[2022-10-07] MEDS: Mirtazapine 15 MG Tablet 7.5 MG PO (21:07)
[2022-10-07] MEDS: Losartan Potassium 50 MG Tablet PO (21:07)
--- NOTE | 2022-10-08 02:57 | NURSING ---
Patient's oxygen dropping between 64-78% while sleeping. Oxygen applied via nasal cannula at 3 LPM. Uziel Christina updated, No new orders.
[2022-10-08 06:30] LABS: Bedside Glucose 215 mg/dL (74-106)
[2022-10-08] MEDS: Iron Polysaccharide Complex 150 MG CAPSULE PO (06:35)
[2022-10-08] MEDS: Senna/Docusate Sodium 1 Tablet PO (06:35)
[2022-10-08] MEDS: Ascorbic Acid 500 MG Tablet PO (06:35)
[2022-10-08] MEDS: Juven (unflavored) Packet 1 PACKET PO ×2 (08:46→16:43)
[2022-10-08] MEDS: Glimepiride 2 MG Tablet PO (08:46)
[2022-10-08] MEDS: Vitamins A and D Ointment 1 APPLIC TOPICAL ×2 (08:59→21:38)
[2022-10-08 13:37] VITALS: BP 123/61; PULSE 81; RESP 16; TEMP 36.6; O2SAT 96
[2022-10-08] MEDS: Menthol/Lanolin/Calamine/Znox 113 GM Tube 1 APPLIC TOPICAL ×2 (16:44→21:35)
[2022-10-08] MEDS: Nystatin Powder 15gm Bottle 1 APPLIC TOPICAL ×2 (16:44→21:35)
[2022-10-08] MEDS: Atorvastatin Calcium 40 MG Tablet PO (21:34)
[2022-10-08] MEDS: Losartan Potassium 50 MG Tablet PO (21:34)
[2022-10-08] MEDS: Mirtazapine 15 MG Tablet 7.5 MG PO (21:34)
[2022-10-09] MEDS: Ascorbic Acid 500 MG Tablet PO (05:06)
[2022-10-09] MEDS: Iron Polysaccharide Complex 150 MG CAPSULE PO (05:07)
[2022-10-09 06:31] LABS: Bedside Glucose 251 mg/dL (74-106)
[2022-10-09 06:53] VITALS: O2SAT 92
[2022-10-09] MEDS: Glimepiride 2 MG Tablet PO ×2 (07:50→16:53)
[2022-10-09] MEDS: Juven (unflavored) Packet 1 PACKET PO ×2 (07:52→16:53)
[2022-10-09] MEDS: Nystatin Powder 15gm Bottle 1 APPLIC TOPICAL ×2 (10:28→19:45)
[2022-10-09] MEDS: Menthol/Lanolin/Calamine/Znox 113 GM Tube 1 APPLIC TOPICAL ×2 (10:28→19:45)
[2022-10-09] MEDS: Vitamins A and D Ointment 1 APPLIC TOPICAL ×2 (10:29→19:46)
[2022-10-09 14:11] VITALS: BP 126/56; PULSE 78; RESP 16; TEMP 36.5; O2SAT 96
[2022-10-09] MEDS: Mirtazapine 15 MG Tablet 7.5 MG PO (19:42)
[2022-10-09] MEDS: Atorvastatin Calcium 40 MG Tablet PO (19:43)
[2022-10-09] MEDS: Losartan Potassium 50 MG Tablet PO (19:43)
[2022-10-10] MEDS: Iron Polysaccharide Complex 150 MG CAPSULE PO (04:50)
[2022-10-10] MEDS: Polyethylene Glycol 3350 17 GM PACKET PO (04:50)
[2022-10-10] MEDS: Senna/Docusate Sodium 1 Tablet PO (04:51)
[2022-10-10] MEDS: Ascorbic Acid 500 MG Tablet PO (04:51)
[2022-10-10 06:31] LABS: Bedside Glucose 198 mg/dL (74-106)
[2022-10-10 07:00] VITALS: O2SAT 94
[2022-10-10] MEDS: Juven (unflavored) Packet 1 PACKET PO ×2 (08:49→17:20)
[2022-10-10] MEDS: Menthol/Lanolin/Calamine/Znox 113 GM Tube 1 APPLIC TOPICAL ×2 (08:49→20:32)
[2022-10-10] MEDS: Glimepiride 2 MG Tablet PO ×2 (08:49→17:20)
[2022-10-10] MEDS: Nystatin Powder 15gm Bottle 1 APPLIC TOPICAL ×2 (08:49→20:32)
[2022-10-10 14:36] VITALS: BP 95/43; PULSE 72; RESP 16; TEMP 36.7; O2SAT 95
[2022-10-10] MEDS: Vitamins A and D Ointment 1 APPLIC TOPICAL ×2 (14:53→20:33)
[2022-10-10 19:30] VITALS: O2SAT 96
[2022-10-10] MEDS: Atorvastatin Calcium 40 MG Tablet PO (20:31)
[2022-10-10] MEDS: Mirtazapine 15 MG Tablet 7.5 MG PO (20:31)
[2022-10-11] MEDS: Ascorbic Acid 500 MG Tablet PO (05:24)
[2022-10-11] MEDS: Iron Polysaccharide Complex 150 MG CAPSULE PO (05:24)
[2022-10-11] MEDS: Senna/Docusate Sodium 1 Tablet PO (05:24)
[2022-10-11] MEDS: Polyethylene Glycol 3350 17 GM PACKET PO (05:24)
[2022-10-11 06:40] LABS: Bedside Glucose 217 mg/dL (74-106)
[2022-10-11 07:34] VITALS: O2SAT 96
[2022-10-11] MEDS: Juven (unflavored) Packet 1 PACKET PO ×2 (07:36→17:44)
[2022-10-11] MEDS: Glimepiride 2 MG Tablet PO ×2 (07:36→17:44)
[2022-10-11] MEDS: Menthol/Lanolin/Calamine/Znox 113 GM Tube 1 APPLIC TOPICAL ×2 (08:51→20:42)
[2022-10-11] MEDS: Nystatin Powder 15gm Bottle 1 APPLIC TOPICAL ×2 (08:52→20:42)
[2022-10-11] MEDS: Vitamins A and D Ointment 1 APPLIC TOPICAL ×2 (08:53→20:41)
--- NOTE | 2022-10-11 09:10 | WOUNDNOTE ---
wound photo: abdomen
[2022-10-11 09:21] VITALS: PULSE 78; O2SAT 94
--- NOTE | 2022-10-11 11:20 | MDS.RN ---
Information for the mds was obtained from review of the clinical record, interview of resident, staff, and direct observation of resident's care.
[2022-10-11 13:53] VITALS: BP 127/49; PULSE 78; RESP 16; TEMP 36.2; O2SAT 97
[2022-10-11] MEDS: Atorvastatin Calcium 40 MG Tablet PO (20:41)
[2022-10-11] MEDS: Mirtazapine 15 MG Tablet 7.5 MG PO (20:41)
[2022-10-12] MEDS: Polyethylene Glycol 3350 17 GM PACKET PO (06:10)
[2022-10-12] MEDS: Iron Polysaccharide Complex 150 MG CAPSULE PO (06:10)
[2022-10-12] MEDS: Senna/Docusate Sodium 1 Tablet PO ×2 (06:10→16:47)
[2022-10-12] MEDS: Clopidogrel Bisulfate 75 MG Tablet PO (06:10)
[2022-10-12] MEDS: Ascorbic Acid 500 MG Tablet PO (06:10)
[2022-10-12] MEDS: Vitamins A and D Ointment 1 APPLIC TOPICAL ×2 (06:17→21:32)
[2022-10-12 06:24] VITALS: O2SAT 96
[2022-10-12 07:36] LABS: Bedside Glucose 258 mg/dL (74-106)
[2022-10-12 07:42] VITALS: O2SAT 95
[2022-10-12] MEDS: Juven (unflavored) Packet 1 PACKET PO ×2 (07:50→16:47)
[2022-10-12] MEDS: Glimepiride 2 MG Tablet PO ×2 (07:51→16:47)
[2022-10-12] MEDS: Nystatin Powder 15gm Bottle 1 APPLIC TOPICAL ×2 (10:32→21:33)
[2022-10-12] MEDS: Menthol/Lanolin/Calamine/Znox 113 GM Tube 1 APPLIC TOPICAL ×2 (10:32→21:33)
[2022-10-12 14:50] VITALS: BP 118/53; PULSE 77; RESP 16; TEMP 37.1; O2SAT 98
--- NOTE | 2022-10-12 20:41 | NURSING ---
Daughter requesting a room with a view for patient to see if it will help with her intermittent confusion. SW notified and ok with move as well. Will pass on to move patient to room #7 when cleaned.
[2022-10-12 21:16] VITALS: PULSE 77; RESP 16
[2022-10-12] MEDS: Atorvastatin Calcium 40 MG Tablet PO (21:32)
[2022-10-12] MEDS: Mirtazapine 15 MG Tablet 7.5 MG PO (21:32)
--- NOTE | 2022-10-12 21:35 | NURSING ---
Abdominal dressing changed per order. Minimal drainage noted on the old dressing. No sign of infection noted. Cleansed with soap and water, pat dry, fluffed 4x4 gauze moistened with Normal Saline. Covered with dry 4x4 and ABD pad, secured with medipore tape.
[2022-10-13 00:57] VITALS: O2SAT 95
[2022-10-13 05:50] VITALS: O2SAT 68
[2022-10-13] MEDS: Iron Polysaccharide Complex 150 MG CAPSULE PO (05:52)
[2022-10-13] MEDS: Ascorbic Acid 500 MG Tablet PO (05:52)
[2022-10-13] MEDS: Clopidogrel Bisulfate 75 MG Tablet PO (05:52)
[2022-10-13] MEDS: Polyethylene Glycol 3350 17 GM PACKET PO (05:52)
[2022-10-13] MEDS: Senna/Docusate Sodium 1 Tablet PO (05:55)
[2022-10-13 05:56] VITALS: O2SAT 94
--- NOTE | 2022-10-13 05:56 | NURSING ---
Patient removed nasal cannula sometime after 04:50 this morning. Oxygen saturation at 64% RA. Nasal cannula replaced, oxygen increased to 94% within a few minutes.
[2022-10-13 06:36] LABS: Bedside Glucose 235 mg/dL (74-106)
[2022-10-13] MEDS: Juven (unflavored) Packet 1 PACKET PO ×2 (07:53→17:09)
[2022-10-13] MEDS: Glimepiride 2 MG Tablet PO ×2 (09:03→17:09)
[2022-10-13] MEDS: Nystatin Powder 15gm Bottle 1 APPLIC TOPICAL ×2 (09:07→21:55)
[2022-10-13] MEDS: Menthol/Lanolin/Calamine/Znox 113 GM Tube 1 APPLIC TOPICAL ×2 (09:07→21:55)
[2022-10-13 09:14] VITALS: PULSE 77; RESP 18
[2022-10-13] MEDS: Vitamins A and D Ointment 1 APPLIC TOPICAL ×2 (11:40→21:49)
[2022-10-13 15:32] VITALS: BP 114/58; PULSE 79; RESP 16; TEMP 36.6; O2SAT 96
[2022-10-13] MEDS: Mirtazapine 15 MG Tablet 7.5 MG PO (21:47)
[2022-10-13] MEDS: Atorvastatin Calcium 40 MG Tablet PO (21:47)
[2022-10-14] MEDS: Ascorbic Acid 500 MG Tablet PO (05:53)
[2022-10-14] MEDS: Iron Polysaccharide Complex 150 MG CAPSULE PO (05:53)
[2022-10-14] MEDS: Polyethylene Glycol 3350 17 GM PACKET PO (05:53)
[2022-10-14] MEDS: Clopidogrel Bisulfate 75 MG Tablet PO (05:53)
[2022-10-14] MEDS: Senna/Docusate Sodium 1 Tablet PO (05:55)
[2022-10-14 06:12] LABS: Absolute Lymphocyte Count 2.61 X10^3/uL (0.83-4.51); Absolute Neutrophil Count 5.9 X10^3/uL (2.0-7.7); Basophil# 0.05 X10^3/uL; Basophil% 0.5 % (0-1); Eosinophil# 0.69 X10^3/uL; Eosinophils% 6.8 % (0-5); Hematocrit 34.8 % (37-47); Hemoglobin 10.5 g/dL (12.0-15.0); Lymphocyte # 2.61 X10^3/ul (0.83-4.51); Lymphocyte % 25.8 % (19-41); Mean Corp Hgb Conc 30.2 g/dL (32-36); Mean Corpuscular Volume 86.1 fL (81-99); Mean Platelet Vol. 12.1 fl (6.2-12.0); Monocyte# 0.82 X10^3/uL; Monocyte% 8.1 % (0-10); NRBC Flagged by Analyzer 0 % (0-5); Neutrophil # 5.92 X10^3/uL (2.7-7.7); Neutrophil % 58.4 % (47-70); POSITIVE MORPHOLOGY YES; Platelet Count 296 K/mm3 (150-450); RBC Distribution Width CV 22.1 % (11.6-14.6); RBC Distribution Width SD 68.8 fl (35.1-43.9); Red Blood Count 4.04 M/mm3 (4.2-5.4); White Blood Count 10.1 K/mm3 (4.4-11.0)
[2022-10-14 06:13] LABS: Differential Indicated SCAN CRITERIA MET
[2022-10-14 06:30] LABS: Anisocytosis 1+; Differential Comment SCANNED
[2022-10-14 06:32] LABS: Anion Gap 6 (5-15); BUN 50 mg/dL (7-18); BUN/Creat Ratio 71.5 RATIO (10-20); Calcium,Total 9.8 mg/dL (8.5-10.1); Chloride 109 mmol/L (98-107); EST Glomerular Filtration Rate 85 mL/min (>60); Est Glom Filt Rate - Afr Amer 103 mL/min (>60); Estimated Creatinine Clearance 37.45 ml/min; Glucose 247 mg/dL (74-106); Potassium 4.5 mmol/L (3.5-5.1); Sodium Level 138 mmol/L (136-145)
[2022-10-14 07:15] LABS: Bedside Glucose 235 mg/dL (74-106)
[2022-10-14] MEDS: Juven (unflavored) Packet 1 PACKET PO ×2 (08:18→17:28)
[2022-10-14] MEDS: Glimepiride 2 MG Tablet PO ×2 (08:18→17:30)
[2022-10-14] MEDS: Nystatin Powder 15gm Bottle 1 APPLIC TOPICAL ×2 (09:36→22:41)
[2022-10-14] MEDS: Menthol/Lanolin/Calamine/Znox 113 GM Tube 1 APPLIC TOPICAL ×2 (09:36→22:40)
[2022-10-14] MEDS: Insulin Lispro 100 UNIT/ML INSULN.PEN SC ×2 (12:05→17:29)
[2022-10-14 12:25] LABS: Bedside Glucose 341 mg/dL (74-106)
[2022-10-14] MEDS: Vitamins A and D Ointment 1 APPLIC TOPICAL ×2 (13:32→22:41)
--- NOTE | 2022-10-14 14:50 | NURSING ---
DRESSING CHANGED TO PT ABDOMINAL PER ORDER. LIGHT YELLOW DRAINAGE,PT TOLERATED WELL.
[2022-10-14 15:25] VITALS: BP 150/52; PULSE 83; RESP 18; TEMP 36.5; O2SAT 99
[2022-10-14 17:15] LABS: Bedside Glucose 268 mg/dL (74-106)
[2022-10-14] MEDS: Atorvastatin Calcium 40 MG Tablet PO (22:39)
[2022-10-14] MEDS: Mirtazapine 15 MG Tablet 7.5 MG PO (22:39)
--- NOTE | 2022-10-14 23:40 | NURSING ---
Pt abdominal dressing changed per order. Minimal amount of drainage noted. Pt tolerated well.
[2022-10-15 01:15] LABS: Bedside Glucose 304 mg/dL (74-106)
[2022-10-15] MEDS: Ascorbic Acid 500 MG Tablet PO (06:05)
[2022-10-15] MEDS: Iron Polysaccharide Complex 150 MG CAPSULE PO (06:06)
[2022-10-15] MEDS: Clopidogrel Bisulfate 75 MG Tablet PO (06:06)
[2022-10-15 06:51] LABS: Bedside Glucose 266 mg/dL (74-106)
[2022-10-15] MEDS: Insulin Lispro 100 UNIT/ML INSULN.PEN SC (08:06)
[2022-10-15] MEDS: Glimepiride 2 MG Tablet PO ×2 (08:07→16:39)
[2022-10-15] MEDS: Juven (unflavored) Packet 1 PACKET PO ×2 (08:07→16:39)
--- NOTE | 2022-10-15 09:13 | CASEMGMT ---
Social Work DC plan remains home with dtr vs SNF, if cannot return home. Pt has wound care, change in cognition, and IDT recommending continued stay at this time. Insurance update 10/18. SW to continue to follow. IVAN ColinW
[2022-10-15 10:00] VITALS: PULSE 66; RESP 16; O2SAT 98
[2022-10-15] MEDS: Vitamins A and D Ointment 1 APPLIC TOPICAL ×2 (10:12→22:16)
[2022-10-15] MEDS: Menthol/Lanolin/Calamine/Znox 113 GM Tube 1 APPLIC TOPICAL ×2 (10:13→22:17)
[2022-10-15] MEDS: Nystatin Powder 15gm Bottle 1 APPLIC TOPICAL ×2 (10:13→22:17)
[2022-10-15] MEDS: Insulin Lispro 100 UNIT/ML INSULN.PEN 10 UNIT SC ×2 (12:21→16:39)
--- NOTE | 2022-10-15 13:24 | NURSING ---
at 1158 patient's blood sugar was checked and shown to be 291. At 1320 this nurse noticed that the computer had not updated result.
[2022-10-15 13:36] LABS: Bedside Glucose 291 mg/dL (74-106)
[2022-10-15 16:00] VITALS: BP 129/49; PULSE 81; RESP 18; TEMP 36.4; O2SAT 96
[2022-10-15 16:26] LABS: Bedside Glucose 187 mg/dL (74-106)
[2022-10-15 21:46] LABS: Bedside Glucose 312 mg/dL (74-106)
[2022-10-15] MEDS: Mirtazapine 15 MG Tablet 7.5 MG PO (22:19)
[2022-10-15] MEDS: Atorvastatin Calcium 40 MG Tablet PO (22:19)
[2022-10-16] MEDS: Iron Polysaccharide Complex 150 MG CAPSULE PO (05:03)
[2022-10-16] MEDS: Polyethylene Glycol 3350 17 GM PACKET PO (05:03)
[2022-10-16] MEDS: Ascorbic Acid 500 MG Tablet PO (05:03)
[2022-10-16] MEDS: Senna/Docusate Sodium 1 Tablet PO (05:03)
[2022-10-16] MEDS: Clopidogrel Bisulfate 75 MG Tablet PO (05:03)
[2022-10-16 06:50] LABS: Bedside Glucose 200 mg/dL (74-106)
[2022-10-16] MEDS: Insulin Lispro 100 UNIT/ML INSULN.PEN 10 UNIT SC ×3 (08:03→17:28)
[2022-10-16] MEDS: Juven (unflavored) Packet 1 PACKET PO ×2 (08:03→17:29)
[2022-10-16] MEDS: Glimepiride 2 MG Tablet PO ×2 (08:05→17:30)
[2022-10-16] MEDS: Nystatin Powder 15gm Bottle 1 APPLIC TOPICAL ×2 (09:55→20:38)
[2022-10-16] MEDS: Menthol/Lanolin/Calamine/Znox 113 GM Tube 1 APPLIC TOPICAL ×2 (09:56→20:44)
[2022-10-16] MEDS: Vitamins A and D Ointment 1 APPLIC TOPICAL ×2 (10:00→20:31)
[2022-10-16 12:05] LABS: Bedside Glucose 253 mg/dL (74-106)
[2022-10-16 15:09] VITALS: BP 152/61; PULSE 81; RESP 18; TEMP 36.6; O2SAT 93
[2022-10-16 16:41] LABS: Bedside Glucose 231 mg/dL (74-106)
--- NOTE | 2022-10-16 18:54 | NURSING ---
DRESSING CHANGED TO PT ABDOMINAL PER ORDERS. SMALL AMOUNT OF YELLOW DRAINAGE. PT TOLERATED WELL.
[2022-10-16 20:22] VITALS: PULSE 75; RESP 16; O2SAT 98
[2022-10-16] MEDS: Atorvastatin Calcium 40 MG Tablet PO (20:45)
[2022-10-16] MEDS: Mirtazapine 15 MG Tablet 7.5 MG PO (20:46)
[2022-10-16 21:56] LABS: Bedside Glucose 199 mg/dL (74-106)
[2022-10-16] MEDS: Insulin Glargine-YFGN 100 UNIT/ML Pen 20 UNIT SC (22:15)
[2022-10-17] MEDS: Ascorbic Acid 500 MG Tablet PO (05:48)
[2022-10-17] MEDS: Clopidogrel Bisulfate 75 MG Tablet PO (05:48)
[2022-10-17] MEDS: Iron Polysaccharide Complex 150 MG CAPSULE PO (05:48)
[2022-10-17] MEDS: Insulin Lispro 100 UNIT/ML INSULN.PEN 10 UNIT SC ×2 (08:09→12:33)
[2022-10-17] MEDS: Glimepiride 2 MG Tablet PO ×2 (08:10→17:16)
[2022-10-17] MEDS: Juven (unflavored) Packet 1 PACKET PO ×2 (08:10→17:17)
[2022-10-17] MEDS: Nystatin Powder 15gm Bottle 1 APPLIC TOPICAL ×2 (09:46→20:19)
[2022-10-17] MEDS: Menthol/Lanolin/Calamine/Znox 113 GM Tube 1 APPLIC TOPICAL ×2 (09:47→20:18)
[2022-10-17] MEDS: Vitamins A and D Ointment 1 APPLIC TOPICAL ×2 (09:53→20:17)
[2022-10-17 10:00] VITALS: PULSE 77; RESP 18; O2SAT 93
[2022-10-17 11:45] LABS: Bedside Glucose 142 mg/dL (74-106)
[2022-10-17 15:07] VITALS: BP 129/59; PULSE 80; RESP 18; TEMP 36.5; O2SAT 96
[2022-10-17 17:06] LABS: Bedside Glucose 130 mg/dL (74-106)
[2022-10-17] MEDS: Insulin Lispro 100 UNIT/ML INSULN.PEN 7 UNIT SC (17:49)
[2022-10-17 21:46] LABS: Bedside Glucose 196 mg/dL (74-106)
[2022-10-17] MEDS: Insulin Glargine-YFGN 100 UNIT/ML Pen 20 UNIT SC (22:05)
[2022-10-17] MEDS: Mirtazapine 15 MG Tablet 7.5 MG PO (22:05)
[2022-10-17] MEDS: Atorvastatin Calcium 40 MG Tablet PO (22:05)
[2022-10-18 04:05] LABS: Bedside Glucose 177 mg/dL (74-106)
[2022-10-18] MEDS: Ascorbic Acid 500 MG Tablet PO (05:29)
[2022-10-18] MEDS: Iron Polysaccharide Complex 150 MG CAPSULE PO (05:29)
[2022-10-18] MEDS: Clopidogrel Bisulfate 75 MG Tablet PO (05:29)
[2022-10-18 06:56] LABS: Bedside Glucose 191 mg/dL (74-106)
[2022-10-18] MEDS: Insulin Lispro 100 UNIT/ML INSULN.PEN 7 UNIT SC ×3 (08:02→18:03)
[2022-10-18] MEDS: Glimepiride 2 MG Tablet PO ×2 (08:03→18:05)
[2022-10-18] MEDS: Juven (unflavored) Packet 1 PACKET PO ×2 (08:03→18:05)
[2022-10-18 11:11] LABS: Bedside Glucose 220 mg/dL (74-106)
[2022-10-18] MEDS: Vitamins A and D Ointment 1 APPLIC TOPICAL ×2 (11:27→21:16)
[2022-10-18] MEDS: Nystatin Powder 15gm Bottle 1 APPLIC TOPICAL ×2 (11:28→21:18)
[2022-10-18] MEDS: Menthol/Lanolin/Calamine/Znox 113 GM Tube 1 APPLIC TOPICAL ×2 (11:28→21:17)
[2022-10-18 13:46] VITALS: BP 103/41; PULSE 83; RESP 16; TEMP 36.3; O2SAT 94
[2022-10-18 17:05] LABS: Bedside Glucose 211 mg/dL (74-106)
[2022-10-18] MEDS: Insulin Glargine-YFGN 100 UNIT/ML Pen 20 UNIT SC (21:07)
[2022-10-18] MEDS: Mirtazapine 15 MG Tablet 7.5 MG PO (21:08)
[2022-10-18] MEDS: Atorvastatin Calcium 40 MG Tablet PO (21:08)
[2022-10-18 21:41] LABS: Bedside Glucose 147 mg/dL (74-106)
[2022-10-18 21:58] VITALS: O2SAT 96
[2022-10-19] MEDS: Clopidogrel Bisulfate 75 MG Tablet PO (05:05)
[2022-10-19] MEDS: Polyethylene Glycol 3350 17 GM PACKET PO (05:05)
[2022-10-19] MEDS: Iron Polysaccharide Complex 150 MG CAPSULE PO (05:05)
[2022-10-19] MEDS: Ascorbic Acid 500 MG Tablet PO (05:05)
[2022-10-19] MEDS: Senna/Docusate Sodium 1 Tablet PO ×2 (05:05→17:31)
[2022-10-19] MEDS: Insulin Lispro 100 UNIT/ML INSULN.PEN 7 UNIT SC ×3 (08:28→17:31)
[2022-10-19] MEDS: Glimepiride 2 MG Tablet PO ×2 (08:29→17:31)
[2022-10-19] MEDS: Juven (unflavored) Packet 1 PACKET PO ×2 (08:29→17:31)
[2022-10-19] MEDS: Vitamins A and D Ointment 1 APPLIC TOPICAL ×2 (09:21→21:33)
[2022-10-19] MEDS: Nystatin Powder 15gm Bottle 1 APPLIC TOPICAL ×2 (09:24→21:33)
[2022-10-19] MEDS: Menthol/Lanolin/Calamine/Znox 113 GM Tube 1 APPLIC TOPICAL ×2 (09:24→21:33)
[2022-10-19 12:14] LABS: Bedside Glucose 196 mg/dL (74-106)
[2022-10-19 12:14] LABS: Bedside Glucose 138 mg/dL (74-106)
[2022-10-19 13:33] VITALS: BP 103/52; PULSE 93; RESP 21; TEMP 36.8; O2SAT 96
--- NOTE | 2022-10-19 13:36 | WOUNDNOTE ---
In to assess abdomen, but patient is getting ready to go down to the therapy room. PRIMITIVO Eastman states she changed the dressing this am.
[2022-10-19 17:05] LABS: Bedside Glucose 176 mg/dL (74-106)
[2022-10-19] MEDS: Mirtazapine 15 MG Tablet 7.5 MG PO (21:33)
[2022-10-19] MEDS: Atorvastatin Calcium 40 MG Tablet PO (21:33)
[2022-10-19] MEDS: Insulin Glargine-YFGN 100 UNIT/ML Pen 20 UNIT SC (21:35)
[2022-10-19 21:50] LABS: Bedside Glucose 206 mg/dL (74-106)
[2022-10-20 05:42] VITALS: BP 122/41; PULSE 87; RESP 18; TEMP 36.3; O2SAT 97
[2022-10-20] MEDS: Iron Polysaccharide Complex 150 MG CAPSULE PO (05:46)
[2022-10-20] MEDS: Ascorbic Acid 500 MG Tablet PO (05:46)
[2022-10-20] MEDS: Clopidogrel Bisulfate 75 MG Tablet PO (05:46)
[2022-10-20 06:41] LABS: Bedside Glucose 162 mg/dL (74-106)
[2022-10-20] MEDS: Insulin Lispro 100 UNIT/ML INSULN.PEN 7 UNIT SC ×3 (08:10→17:23)
[2022-10-20] MEDS: Juven (unflavored) Packet 1 PACKET PO ×2 (08:10→17:23)
[2022-10-20] MEDS: Glimepiride 2 MG Tablet PO ×2 (08:11→17:23)
--- NOTE | 2022-10-20 08:13 | WOUNDNOTE ---
wound photo: abdomen
[2022-10-20 11:36] LABS: Bedside Glucose 209 mg/dL (74-106)
[2022-10-20] MEDS: Nystatin Powder 15gm Bottle 1 APPLIC TOPICAL ×2 (11:43→21:46)
[2022-10-20] MEDS: Menthol/Lanolin/Calamine/Znox 113 GM Tube 1 APPLIC TOPICAL ×2 (11:43→21:46)
[2022-10-20 14:16] VITALS: BP 121/58; PULSE 70; RESP 16; TEMP 36.6; O2SAT 97
[2022-10-20 16:45] LABS: Bedside Glucose 144 mg/dL (74-106)
[2022-10-20 20:00] VITALS: PULSE 91; RESP 16; O2SAT 98
[2022-10-20 21:41] LABS: Bedside Glucose 232 mg/dL (74-106)
[2022-10-20] MEDS: Mirtazapine 15 MG Tablet 7.5 MG PO (21:47)
[2022-10-20] MEDS: Insulin Glargine-YFGN 100 UNIT/ML Pen 20 UNIT SC (21:47)
[2022-10-20] MEDS: Atorvastatin Calcium 40 MG Tablet PO (21:47)
[2022-10-21] MEDS: Iron Polysaccharide Complex 150 MG CAPSULE PO (05:31)
[2022-10-21] MEDS: Ascorbic Acid 500 MG Tablet PO (05:31)
[2022-10-21] MEDS: Clopidogrel Bisulfate 75 MG Tablet PO (05:31)
[2022-10-21 06:03] LABS: Absolute Lymphocyte Count 2.16 X10^3/uL (0.83-4.51); Absolute Neutrophil Count 5.9 X10^3/uL (2.0-7.7); Basophil# 0.03 X10^3/uL; Basophil% 0.3 % (0-1); Eosinophil# 0.58 X10^3/uL; Eosinophils% 6.1 % (0-5); Hematocrit 35.6 % (37-47); Hemoglobin 10.3 g/dL (12.0-15.0); Lymphocyte # 2.16 X10^3/ul (0.83-4.51); Lymphocyte % 22.9 % (19-41); Mean Corp Hgb Conc 28.9 g/dL (32-36); Mean Corpuscular Hgb 25.5 pg (27.0-32.0); Mean Corpuscular Volume 88.1 fL (81-99); Mean Platelet Vol. 12.5 fl (6.2-12.0); Monocyte% 7.4 % (0-10); NRBC Flagged by Analyzer 0 % (0-5); Neutrophil # 5.94 X10^3/uL (2.7-7.7); Neutrophil % 62.9 % (47-70); POSITIVE MORPHOLOGY YES; Platelet Count 287 K/mm3 (150-450); RBC Distribution Width CV 23.6 % (11.6-14.6); RBC Distribution Width SD 74.4 fl (35.1-43.9); Red Blood Count 4.04 M/mm3 (4.2-5.4); White Blood Count 9.5 K/mm3 (4.4-11.0)
[2022-10-21 06:10] LABS: Differential Indicated SCAN CRITERIA MET
[2022-10-21 06:30] LABS: Anion Gap 4 (5-15); BUN 52 mg/dL (7-18); BUN/Creat Ratio 77.8 RATIO (10-20); Calcium,Total 9.8 mg/dL (8.5-10.1); Chloride 111 mmol/L (98-107); Creatinine, Serum 0.67 mg/dL (0.55-1.02); EST Glomerular Filtration Rate 90 mL/min (>60); Est Glom Filt Rate - Afr Amer 109 mL/min (>60); Estimated Creatinine Clearance 37.45 ml/min; Glucose 200 mg/dL (74-106); Potassium 4.1 mmol/L (3.5-5.1); Sodium Level 140 mmol/L (136-145)
[2022-10-21 06:45] LABS: Bedside Glucose 183 mg/dL (74-106)
[2022-10-21 07:10] LABS: Anisocytosis 1+
[2022-10-21] MEDS: Insulin Lispro 100 UNIT/ML INSULN.PEN 7 UNIT SC ×3 (07:33→17:37)
[2022-10-21] MEDS: Glimepiride 2 MG Tablet PO ×2 (07:34→17:33)
[2022-10-21] MEDS: Juven (unflavored) Packet 1 PACKET PO ×2 (07:34→17:36)
[2022-10-21] MEDS: Nystatin Powder 15gm Bottle 1 APPLIC TOPICAL ×2 (07:36→22:42)
[2022-10-21] MEDS: Menthol/Lanolin/Calamine/Znox 113 GM Tube 1 APPLIC TOPICAL ×2 (07:37→22:42)
[2022-10-21 10:00] VITALS: PULSE 92; O2SAT 97
[2022-10-21 11:26] LABS: Bedside Glucose 220 mg/dL (74-106)
[2022-10-21 14:40] VITALS: BP 112/56; PULSE 77; RESP 16; TEMP 37.1; O2SAT 97
[2022-10-21 17:06] LABS: Bedside Glucose 167 mg/dL (74-106)
[2022-10-21] MEDS: Insulin Glargine-YFGN 100 UNIT/ML Pen 20 UNIT SC (22:34)
[2022-10-21] MEDS: Atorvastatin Calcium 40 MG Tablet PO (22:34)
[2022-10-21] MEDS: Mirtazapine 15 MG Tablet 7.5 MG PO (22:34)
[2022-10-22 01:16] LABS: Bedside Glucose 186 mg/dL (74-106)
[2022-10-22] MEDS: Iron Polysaccharide Complex 150 MG CAPSULE PO (06:12)
[2022-10-22] MEDS: Ascorbic Acid 500 MG Tablet PO (06:12)
[2022-10-22] MEDS: Clopidogrel Bisulfate 75 MG Tablet PO (06:12)
[2022-10-22 06:41] LABS: Bedside Glucose 134 mg/dL (74-106)
[2022-10-22] MEDS: Insulin Lispro 100 UNIT/ML INSULN.PEN 7 UNIT SC ×3 (08:54→17:53)
[2022-10-22] MEDS: Glimepiride 2 MG Tablet PO ×2 (08:54→17:53)
[2022-10-22] MEDS: Nystatin Powder 15gm Bottle 1 APPLIC TOPICAL ×2 (08:55→21:13)
[2022-10-22] MEDS: Juven (unflavored) Packet 1 PACKET PO ×2 (08:55→17:53)
[2022-10-22] MEDS: Menthol/Lanolin/Calamine/Znox 113 GM Tube 1 APPLIC TOPICAL ×2 (08:57→21:18)
[2022-10-22 11:25] LABS: Bedside Glucose 291 mg/dL (74-106)
[2022-10-22 15:38] VITALS: BP 136/49; PULSE 78; RESP 18; TEMP 36.5; O2SAT 97
[2022-10-22 16:55] LABS: Bedside Glucose 122 mg/dL (74-106)
[2022-10-22] MEDS: Atorvastatin Calcium 40 MG Tablet PO (21:13)
[2022-10-22] MEDS: Mirtazapine 15 MG Tablet 7.5 MG PO (21:14)
[2022-10-22] MEDS: Insulin Glargine-YFGN 100 UNIT/ML Pen 20 UNIT SC (21:14)
[2022-10-22 21:21] LABS: Bedside Glucose 231 mg/dL (74-106)
[2022-10-22 22:04] VITALS: PULSE 65; RESP 18; O2SAT 98
[2022-10-23] MEDS: Iron Polysaccharide Complex 150 MG CAPSULE PO (06:09)
[2022-10-23] MEDS: Ascorbic Acid 500 MG Tablet PO (06:10)
[2022-10-23] MEDS: Clopidogrel Bisulfate 75 MG Tablet PO (06:10)
[2022-10-23 06:36] LABS: Bedside Glucose 142 mg/dL (74-106)
[2022-10-23] MEDS: Insulin Lispro 100 UNIT/ML INSULN.PEN 7 UNIT SC ×3 (09:05→17:35)
[2022-10-23] MEDS: Juven (unflavored) Packet 1 PACKET PO ×2 (09:06→17:36)
[2022-10-23] MEDS: Glimepiride 2 MG Tablet PO ×2 (09:06→17:36)
[2022-10-23] MEDS: Menthol/Lanolin/Calamine/Znox 113 GM Tube 1 APPLIC TOPICAL ×2 (09:09→20:45)
[2022-10-23] MEDS: Nystatin Powder 15gm Bottle 1 APPLIC TOPICAL ×2 (09:10→20:45)
[2022-10-23 11:50] LABS: Bedside Glucose 167 mg/dL (74-106)
[2022-10-23 16:00] VITALS: BP 108/57; PULSE 72; RESP 16; TEMP 36.5; O2SAT 100
[2022-10-23 17:00] LABS: Bedside Glucose 157 mg/dL (74-106)
[2022-10-23] MEDS: Insulin Glargine-YFGN 100 UNIT/ML Pen 20 UNIT SC (20:41)
[2022-10-23] MEDS: Atorvastatin Calcium 40 MG Tablet PO (20:42)
[2022-10-23] MEDS: Mirtazapine 15 MG Tablet 7.5 MG PO (20:42)
[2022-10-23 21:05] LABS: Bedside Glucose 168 mg/dL (74-106)
[2022-10-24] MEDS: Iron Polysaccharide Complex 150 MG CAPSULE PO (05:48)
[2022-10-24] MEDS: Ascorbic Acid 500 MG Tablet PO (05:48)
[2022-10-24] MEDS: Clopidogrel Bisulfate 75 MG Tablet PO (05:48)
[2022-10-24] MEDS: Senna/Docusate Sodium 1 Tablet PO (05:48)
[2022-10-24] MEDS: Polyethylene Glycol 3350 17 GM PACKET PO (05:48)
[2022-10-24 06:55] LABS: Bedside Glucose 151 mg/dL (74-106)
[2022-10-24] MEDS: Juven (unflavored) Packet 1 PACKET PO ×2 (08:16→18:00)
[2022-10-24] MEDS: Insulin Lispro 100 UNIT/ML INSULN.PEN 7 UNIT SC ×3 (08:17→17:59)
[2022-10-24] MEDS: Glimepiride 2 MG Tablet PO ×2 (08:17→17:59)
[2022-10-24 11:51] LABS: Bedside Glucose 221 mg/dL (74-106)
[2022-10-24] MEDS: Nystatin Powder 15gm Bottle 1 APPLIC TOPICAL ×2 (12:32→22:43)
[2022-10-24] MEDS: Menthol/Lanolin/Calamine/Znox 113 GM Tube 1 APPLIC TOPICAL ×2 (12:32→22:44)
[2022-10-24 16:00] VITALS: BP 157/68; PULSE 72; RESP 16; TEMP 36.7; O2SAT 98
[2022-10-24 17:51] LABS: Bedside Glucose 197 mg/dL (74-106)
[2022-10-24 21:40] LABS: Bedside Glucose 189 mg/dL (74-106)
[2022-10-24 22:10] VITALS: PULSE 84; RESP 16; O2SAT 96
[2022-10-24] MEDS: Insulin Glargine-YFGN 100 UNIT/ML Pen 20 UNIT SC (22:38)
[2022-10-24] MEDS: Mirtazapine 15 MG Tablet 7.5 MG PO (22:41)
[2022-10-24] MEDS: Atorvastatin Calcium 40 MG Tablet PO (22:41)
[2022-10-25] MEDS: Ascorbic Acid 500 MG Tablet PO (05:42)
[2022-10-25] MEDS: Iron Polysaccharide Complex 150 MG CAPSULE PO (05:42)
[2022-10-25] MEDS: Clopidogrel Bisulfate 75 MG Tablet PO (05:43)
[2022-10-25 06:41] LABS: Bedside Glucose 117 mg/dL (74-106)
[2022-10-25] MEDS: Juven (unflavored) Packet 1 PACKET PO ×2 (07:57→17:51)
[2022-10-25] MEDS: Insulin Lispro 100 UNIT/ML INSULN.PEN 7 UNIT SC ×3 (07:58→17:51)
[2022-10-25] MEDS: Glimepiride 2 MG Tablet PO ×2 (08:00→17:53)
[2022-10-25 10:10] VITALS: PULSE 74; RESP 18; O2SAT 97
[2022-10-25] MEDS: Menthol/Lanolin/Calamine/Znox 113 GM Tube 1 APPLIC TOPICAL ×2 (10:16→21:39)
[2022-10-25] MEDS: Nystatin Powder 15gm Bottle 1 APPLIC TOPICAL ×2 (10:17→21:39)
--- NOTE | 2022-10-25 10:49 | WOUNDNOTE ---
wound photo: abdomen
[2022-10-25 11:21] LABS: Bedside Glucose 168 mg/dL (74-106)
[2022-10-25 15:14] VITALS: BP 133/66; PULSE 102; RESP 18; TEMP 36.1
[2022-10-25 17:26] LABS: Bedside Glucose 169 mg/dL (74-106)
--- NOTE | 2022-10-25 19:34 | PN.TCU_ITS ---
Subjective Subjective Resident seen, examined for regulatory visit. She is in good spirits, eating supper. There has been concern with resident cognition, maybe related to nighttime hypoxia from sleep apnea. Today, her mind is sharp. Objective Data Objective Data Vital Signs: Vital Signs Temp Pulse Resp BP Pulse Ox O2 Del Method O2 Flow Rate 96.9 F L 102 H 18 133/66 H 97 Room Air 2 10/25/22 15:14 10/25/22 15:14 10/25/22 15:14 10/25/22 15:14 10/25/22 10:10 10/25/22 15:14 10/14/22 21:40 Oxygen Flow Rate (L/min) 2 Oxygen Delivery Method Room Air Weight: 101.015 kg Body Mass Index (BMI) 39.6 Intake & Output: Intake and Output for Last 24 Hours 10/23/22 10/24/22 10/25/22 23:59 23:59 23:59 Intake Total 720 / 720 1080 / 1080 720 / 720 Output Total 200 / 200 300 / 300 750 / 750 Balance 520 / 520 780 / 780 -30 / -30 Medical Nutrition Assessment Dietitian: Malnutrition Criteria Met Start: 09/30/22 14:09 Freq: Status: Active Protocol: Document 10/13/22 14:14 TELLO (Rec: 10/13/22 14:14 TELLO [id number]) Nutrition Malnutrition Evidence of Malnutrition Exists Yes Malnutrition (severe): Acute Illness/Injury Evidenced By Suboptimal Energy Intake ( Moderate),Weight Loss (Severe) ,Physical Changes (Severe) Clinical Problem Acute Disease or Injury Related Malnutrition Etiology severe related to recent surgery and surgical incision - res having no appetite since hospitalized Signs/Symptoms as evidenced by po intake <75% of est nutritional needs and 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 Severe fat/muscle loss per NFPA Status Active Problem Recommendation Dietitian Recommendations/Changes Will continue liberal Regular d/t signs and symptoms of malnutrition Family to bring in 30 gm/8 oz supplements from home for res to drink w/ goal 3 bottles/day Continue Keith 1 packet bid w/ medpass Lab / Micro Data Result Diagrams: 10/21/22 05:16 10/21/22 05:16 Labs: Laboratory Results - last 24 hr 10/24/22 21:08: POC Glucose 189 H 10/25/22 06:16: POC Glucose 117 H 10/25/22 10:56: POC Glucose 168 H 10/25/22 16:35: POC Glucose 169 H Micro: Microbiology 10/03/22 05:30 Nasal Secretion SARS-CoV-2 Antigen (Rapid) - Final 10/01/22 05:10 Nasal Secretion SARS-CoV-2 Antigen (Rapid) - Final Physical Exam Const alert General Appearance: cooperative HEENT normocephalic Eyes PERRL and EOMs intact bilaterally Neck supple, no JVD and no carotid bruits Resp normal respiratory effort, normal air movement and clear to auscultation bilaterally Cardio regular rate and regular rhythm GI normal to inspection, nondistended, normoactive bowel sounds, non-tender and non-distended GI Narrative: Abdominal wound per wound nurse. Extremity normal capillary refill General Extremity: Negative for edema Skin no rashes or lesions noted General Skin Exam: no breakdown Psych affect normal Appearance: appropriate Assessment & Plan Assessment/Plan (1) Debility: (2) Large bowel obstruction: (3) Primary adenocarcinoma of ascending colon: (4) Diabetes mellitus: (5) Hyperlipidemia: (6) Stroke: (7) Iron deficiency anemia: PLAN: Plan 82 year old female with below past medical history hospitalized for large bowel obstruction, underwent open right hemicolectomy with Dr. Rivera 09/16/2022 showing adenocarcinoma of ascending colon, admitted to TCU with debility, here for rehabilitation, strengthening, prior to discharge home alone. * Debility - PT/OT. * Cognition - ST. * Pain - Tylenol 1000mg q6h prn pain (1-10). * Bowel - Miralax 17gm daily, senna/colace 1 tablets bid. * Adult immunization - Administer pneumonia vaccine, covid19 vaccine, flu vaccine as appropriate. * DVT prophylaxis - Hold, anemia. * Iron deficiency anemia - Ferrex 150mg daily, Vitamin C 500mg daily. * Hyperlipidemia - Atorvastatin 40mg qhs. * Stroke - Plavix 75mg daily. * Diabetes Mellitus II - Glimepiride 2mg bid, Glargine 20 units qhs, Lispro 7 units tid. * Nutrition - Glucerna shake 120ml po tid. * Abdominal wound - Wound nurse, photos show progressive healing, Keith 1 packet bid. * Skin irritation - Calmoseptine topical bid. * Tinea corporis - Nystatin powder topical bid. * Nausea - Zofran 8mg q8h prn. * Appetite loss - Mirtazapine 7.5mg qhs. Capacity Capacity Assessment Tool Can the patient make a choice & communicate that choice?: Yes Can the patient understand benefits, risks and alternatives?: Yes Can the patient make a logical, rational choice?: Yes Is the choice the patient makes consistent w/ their values?: Yes Is there an impending, emergent risk to the patient?: No Does the patient have an Advance Directive?: Yes Is there a Surrogate Available?: Yes i.e. HCPOA: Yes i.e. close relative (spouse, child, parent, sibling)?: Yes
[2022-10-25] MEDS: Atorvastatin Calcium 40 MG Tablet PO (21:35)
[2022-10-25] MEDS: Insulin Glargine-YFGN 100 UNIT/ML Pen 20 UNIT SC (21:35)
[2022-10-25] MEDS: Mirtazapine 15 MG Tablet 7.5 MG PO (21:35)
[2022-10-25 22:01] LABS: Bedside Glucose 155 mg/dL (74-106)
[2022-10-26] MEDS: Polyethylene Glycol 3350 17 GM PACKET PO (05:13)
[2022-10-26] MEDS: Senna/Docusate Sodium 1 Tablet PO (05:13)
[2022-10-26] MEDS: Iron Polysaccharide Complex 150 MG CAPSULE PO (05:13)
[2022-10-26] MEDS: Ascorbic Acid 500 MG Tablet PO (05:13)
[2022-10-26] MEDS: Clopidogrel Bisulfate 75 MG Tablet PO (05:13)
[2022-10-26 06:36] LABS: Bedside Glucose 96 mg/dL (74-106)
[2022-10-26] MEDS: Juven (unflavored) Packet 1 PACKET PO ×2 (08:08→18:14)
[2022-10-26] MEDS: Glimepiride 2 MG Tablet PO ×2 (08:08→18:14)
[2022-10-26] MEDS: Insulin Lispro 100 UNIT/ML INSULN.PEN 7 UNIT SC ×2 (11:37→18:12)
[2022-10-26] MEDS: Nystatin Powder 15gm Bottle 1 APPLIC TOPICAL ×2 (11:47→22:16)
[2022-10-26] MEDS: Menthol/Lanolin/Calamine/Znox 113 GM Tube 1 APPLIC TOPICAL ×2 (11:49→22:16)
[2022-10-26 12:06] LABS: Bedside Glucose 235 mg/dL (74-106)
[2022-10-26 14:55] VITALS: BP 130/54; PULSE 79; RESP 16; TEMP 36.8; O2SAT 98
--- NOTE | 2022-10-26 15:51 | CASEMGMT ---
Social Work Spoke with pt's dtr to update on insurance and DC recommendations. Educated to insurance NRD 11/01, anticipating DC 11/04. IDT recommending 13/06 supervision for safety and cognition. Explained pt was adlib yesterday and it was not successful for several reasons. Pt is no longer adlib and staff agree pt needs supervision for all tasks r/t sequencing, initiation and memory. Recommending pt is not left alone throughout the day. Explained hiring [facility], SNF or [place]. Dtr would like to take pt home and have additional help during dtr's work hours. SW offered to email resources to dtr. Dtr provided email - email sent with nonskilled [employer] and [place] resources. Pt had applied for Medicaid. Educated to [employer]SPORT services but it is not immediate assistance and staffing is still a challenge for those agencies. Dtr expressed understanding and appreciative of information. MAYDA emailed CON Davila to update on EDC date and plan home, requesting referral to [employer]. WILLIAN replied stating the application reached 30 days with no placement and was closed out. WILLAIN mailed dtr new application to reapply and then [employer] referral can be made. MAYDA updated dtr with CM information. Dtr to reapply. SW to coordinate DME or skilled needs at DC. Will continue to follow. IVAN ColinW
[2022-10-26 17:01] LABS: Bedside Glucose 121 mg/dL (74-106)
[2022-10-26 21:00] VITALS: PULSE 75; RESP 16; O2SAT 95
[2022-10-26] MEDS: Atorvastatin Calcium 40 MG Tablet PO (22:18)
[2022-10-26] MEDS: Insulin Glargine-YFGN 100 UNIT/ML Pen 20 UNIT SC (22:18)
[2022-10-26] MEDS: Mirtazapine 15 MG Tablet 7.5 MG PO (22:18)
[2022-10-26 22:46] LABS: Bedside Glucose 152 mg/dL (74-106)
[2022-10-27] MEDS: Iron Polysaccharide Complex 150 MG CAPSULE PO (06:20)
[2022-10-27] MEDS: Clopidogrel Bisulfate 75 MG Tablet PO (06:20)
[2022-10-27] MEDS: Ascorbic Acid 500 MG Tablet PO (06:20)
[2022-10-27 06:36] LABS: Bedside Glucose 104 mg/dL (74-106)
[2022-10-27] MEDS: Glimepiride 2 MG Tablet PO ×2 (08:06→18:02)
[2022-10-27] MEDS: Juven (unflavored) Packet 1 PACKET PO ×2 (08:06→18:02)
--- NOTE | 2022-10-27 08:11 | NURSING ---
NOTIFIEDDRKWOKOF BLOOD SUGAR 104 THIS AM. HUMWOLF DARBY'Julian.UPDATED R'.
[2022-10-27] MEDS: Menthol/Lanolin/Calamine/Znox 113 GM Tube 1 APPLIC TOPICAL ×2 (08:33→22:32)
[2022-10-27] MEDS: Nystatin Powder 15gm Bottle 1 APPLIC TOPICAL ×2 (08:34→22:31)
[2022-10-27 11:00] LABS: Bedside Glucose 193 mg/dL (74-106)
[2022-10-27 12:41] VITALS: BP 128/55; PULSE 86; RESP 18; TEMP 36.3; O2SAT 97
--- NOTE | 2022-10-27 13:05 | NURSING ---
R' C/O NEW COUGH AND NASAL CONGESTION. VS OBTAINED. LUNGS SLIGHTLY WHEEZY UPPER LOBES. DENIES INCREASED SOB. STATES COUGH IS DRY. AFEBRILE. NOTIFIED DR NATH. N.O. RESP PANEL AND PCR COVID. NOTIFIED R.T. TO OBTAIN. PLACED IN QUARANTINE/DROPLET PRECAUTIONS. DAUGHTER IS AWARE OF R' SYMPTOMS AND ORDER FOR TESTING.
[2022-10-27 14:18] VITALS: BP 124/61; PULSE 80; RESP 18; TEMP 36.3; O2SAT 98
--- NOTE | 2022-10-27 16:09 | NURSING ---
Addendum entered by Taryn Kramer 10/27/22 16:54: DAUGHTER AND R' NOTIFIED OF RSV AND NEW ORDERS. Addendum entered by Taryn Kramer 10/27/22 16:14: R' IN DROPLET PRECAUTIONS D/T RSV. Original Note: DR. NATH NOTIFIED OF RSV-A. N.O. PRN ALBUTEROL, DOXYCYCLINE X7 DAYS, DROPLET ISOLATION.
[2022-10-27 16:55] LABS: Bedside Glucose 155 mg/dL (74-106)
[2022-10-27] MEDS: Doxycycline 100 MG CAPSULE PO (18:03)
--- NOTE | 2022-10-27 18:11 | NURSING ---
CALLED R.T. FOR BREATHING TX. R' COUGHING/SLIGHTLY WHEEZY.
[2022-10-27 18:35] VITALS: PULSE 80; RESP 18
[2022-10-27] MEDS: Albuterol 2.5 MG/3 ML VIAL.NEB. INHALATION (18:35)
[2022-10-27 21:50] LABS: Bedside Glucose 212 mg/dL (74-106)
[2022-10-27 22:20] VITALS: PULSE 92; O2SAT 98
[2022-10-27] MEDS: Mirtazapine 15 MG Tablet 7.5 MG PO (22:31)
[2022-10-27] MEDS: Atorvastatin Calcium 40 MG Tablet PO (22:31)
[2022-10-27] MEDS: Insulin Glargine-YFGN 100 UNIT/ML Pen 20 UNIT SC (22:31)
[2022-10-28] MEDS: Doxycycline 100 MG CAPSULE PO ×2 (04:40→18:05)
[2022-10-28] MEDS: Iron Polysaccharide Complex 150 MG CAPSULE PO (04:40)
[2022-10-28] MEDS: Clopidogrel Bisulfate 75 MG Tablet PO (04:40)
[2022-10-28] MEDS: Ascorbic Acid 500 MG Tablet PO (04:40)
[2022-10-28 05:49] LABS: Absolute Lymphocyte Count 1.82 X10^3/uL (0.83-4.51); Absolute Neutrophil Count 6.7 X10^3/uL (2.0-7.7); Basophil# 0.03 X10^3/uL; Basophil% 0.3 % (0-1); Eosinophil# 0.43 X10^3/uL; Eosinophils% 4.2 % (0-5); Hematocrit 34.6 % (37-47); Hemoglobin 10.1 g/dL (12.0-15.0); Lymphocyte # 1.82 X10^3/ul (0.83-4.51); Lymphocyte % 17.9 % (19-41); Mean Corp Hgb Conc 29.2 g/dL (32-36); Mean Corpuscular Volume 88.9 fL (81-99); Mean Platelet Vol. 12.3 fl (6.2-12.0); Monocyte# 1.16 X10^3/uL; Monocyte% 11.4 % (0-10); NRBC Flagged by Analyzer 0 % (0-5); Neutrophil # 6.69 X10^3/uL (2.7-7.7); Neutrophil % 65.7 % (47-70); POSITIVE MORPHOLOGY YES; Platelet Count 278 K/mm3 (150-450); RBC Distribution Width CV 24.1 % (11.6-14.6); Red Blood Count 3.89 M/mm3 (4.2-5.4); White Blood Count 10.2 K/mm3 (4.4-11.0)
[2022-10-28 06:12] LABS: Anion Gap 6 (5-15); BUN 45 mg/dL (7-18); BUN/Creat Ratio 70.9 RATIO (10-20); Calcium,Total 9.4 mg/dL (8.5-10.1); Chloride 111 mmol/L (98-107); Creatinine, Serum 0.64 mg/dL (0.55-1.02); EST Glomerular Filtration Rate 95 mL/min (>60); Est Glom Filt Rate - Afr Amer 115 mL/min (>60); Estimated Creatinine Clearance 37.45 ml/min; Glucose 153 mg/dL (74-106); Sodium Level 140 mmol/L (136-145)
[2022-10-28 06:25] LABS: Differential Indicated SCAN CRITERIA MET
[2022-10-28 06:34] LABS: Anisocytosis 1+; Differential Comment SCANNED
[2022-10-28 06:51] LABS: Bedside Glucose 144 mg/dL (74-106)
[2022-10-28] MEDS: Juven (unflavored) Packet 1 PACKET PO ×2 (09:02→18:06)
--- NOTE | 2022-10-28 10:13 | CASEMGMT ---
Social Work BIMS (09/04) and PHQ-9 (12/17) completed for MDS assessment. Violeta Gentile MSW [employer]
[2022-10-28] MEDS: Glimepiride 2 MG Tablet PO ×2 (10:56→18:05)
[2022-10-28] MEDS: Menthol/Lanolin/Calamine/Znox 113 GM Tube 1 APPLIC TOPICAL ×2 (10:57→23:26)
[2022-10-28] MEDS: Nystatin Powder 15gm Bottle 1 APPLIC TOPICAL ×2 (10:58→23:29)
[2022-10-28 12:05] LABS: Bedside Glucose 170 mg/dL (74-106)
[2022-10-28 15:33] VITALS: BP 131/68; PULSE 79; RESP 22; TEMP 36; O2SAT 98
[2022-10-28 17:10] LABS: Bedside Glucose 133 mg/dL (74-106)
[2022-10-28] MEDS: Senna/Docusate Sodium 1 Tablet PO (18:05)
[2022-10-28 22:15] LABS: Bedside Glucose 211 mg/dL (74-106)
[2022-10-28] MEDS: Insulin Glargine-YFGN 100 UNIT/ML Pen 20 UNIT SC (23:27)
[2022-10-28] MEDS: Mirtazapine 15 MG Tablet 7.5 MG PO (23:28)
[2022-10-28] MEDS: Atorvastatin Calcium 40 MG Tablet PO (23:28)
[2022-10-29] MEDS: Doxycycline 100 MG CAPSULE PO ×2 (05:46→18:00)
[2022-10-29] MEDS: Iron Polysaccharide Complex 150 MG CAPSULE PO (05:46)
[2022-10-29] MEDS: Ascorbic Acid 500 MG Tablet PO (05:46)
[2022-10-29] MEDS: Clopidogrel Bisulfate 75 MG Tablet PO (05:46)
[2022-10-29] MEDS: guaiFENesin Dm 10 ML UDC PO (05:50)
[2022-10-29 06:45] LABS: Bedside Glucose 134 mg/dL (74-106)
[2022-10-29] MEDS: Glimepiride 2 MG Tablet PO ×2 (08:56→18:00)
[2022-10-29] MEDS: Juven (unflavored) Packet 1 PACKET PO ×2 (08:56→18:00)
[2022-10-29] MEDS: Nystatin Powder 15gm Bottle 1 APPLIC TOPICAL ×2 (09:04→22:43)
[2022-10-29] MEDS: Menthol/Lanolin/Calamine/Znox 113 GM Tube 1 APPLIC TOPICAL ×2 (09:05→22:43)
[2022-10-29 09:10] VITALS: PULSE 80; RESP 18; O2SAT 98
[2022-10-29 11:35] LABS: Bedside Glucose 147 mg/dL (74-106)
[2022-10-29 15:38] VITALS: BP 113/48; PULSE 83; RESP 16; TEMP 36.3; O2SAT 95
[2022-10-29 17:05] LABS: Bedside Glucose 113 mg/dL (74-106)
[2022-10-29 21:36] LABS: Bedside Glucose 200 mg/dL (74-106)
[2022-10-29] MEDS: Atorvastatin Calcium 40 MG Tablet PO (22:43)
[2022-10-29] MEDS: Insulin Glargine-YFGN 100 UNIT/ML Pen 20 UNIT SC (22:43)
[2022-10-29] MEDS: Mirtazapine 15 MG Tablet 7.5 MG PO (22:43)
[2022-10-30 06:40] LABS: Bedside Glucose 123 mg/dL (74-106)
[2022-10-30] MEDS: Clopidogrel Bisulfate 75 MG Tablet PO (06:57)
[2022-10-30] MEDS: Iron Polysaccharide Complex 150 MG CAPSULE PO (06:57)
[2022-10-30] MEDS: Doxycycline 100 MG CAPSULE PO ×2 (06:57→17:25)
[2022-10-30] MEDS: Ascorbic Acid 500 MG Tablet PO (06:58)
[2022-10-30] MEDS: Senna/Docusate Sodium 1 Tablet PO (06:58)
[2022-10-30] MEDS: Glimepiride 2 MG Tablet PO ×2 (10:32→17:25)
[2022-10-30] MEDS: Menthol/Lanolin/Calamine/Znox 113 GM Tube 1 APPLIC TOPICAL ×2 (10:33→22:31)
[2022-10-30] MEDS: Juven (unflavored) Packet 1 PACKET PO ×2 (10:33→17:25)
[2022-10-30] MEDS: Nystatin Powder 15gm Bottle 1 APPLIC TOPICAL ×2 (10:34→22:36)
[2022-10-30 10:55] LABS: Bedside Glucose 192 mg/dL (74-106)
[2022-10-30 13:38] VITALS: BP 121/63; PULSE 81; RESP 18; TEMP 36.2; O2SAT 97
[2022-10-30 16:55] LABS: Bedside Glucose 213 mg/dL (74-106)
[2022-10-30 20:26] VITALS: PULSE 82; RESP 18
[2022-10-30 21:50] LABS: Bedside Glucose 183 mg/dL (74-106)
[2022-10-30] MEDS: Insulin Glargine-YFGN 100 UNIT/ML Pen 20 UNIT SC (22:31)
[2022-10-30] MEDS: Atorvastatin Calcium 40 MG Tablet PO (22:35)
[2022-10-30] MEDS: Mirtazapine 15 MG Tablet 7.5 MG PO (22:35)
[2022-10-31] MEDS: Ascorbic Acid 500 MG Tablet PO (06:34)
[2022-10-31] MEDS: Iron Polysaccharide Complex 150 MG CAPSULE PO (06:35)
[2022-10-31] MEDS: Clopidogrel Bisulfate 75 MG Tablet PO (06:35)
[2022-10-31] MEDS: Doxycycline 100 MG CAPSULE PO ×2 (06:35→17:53)
[2022-10-31 06:46] LABS: Bedside Glucose 92 mg/dL (74-106)
[2022-10-31 08:45] VITALS: RESP 18
[2022-10-31] MEDS: Juven (unflavored) Packet 1 PACKET PO ×2 (09:39→17:53)
[2022-10-31] MEDS: Glimepiride 2 MG Tablet PO ×2 (09:40→17:53)
[2022-10-31] MEDS: Nystatin Powder 15gm Bottle 1 APPLIC TOPICAL ×2 (09:40→21:09)
[2022-10-31] MEDS: Menthol/Lanolin/Calamine/Znox 113 GM Tube 1 APPLIC TOPICAL ×2 (09:41→20:47)
[2022-10-31 11:31] LABS: Bedside Glucose 149 mg/dL (74-106)
[2022-10-31 15:24] VITALS: BP 124/62; PULSE 76; RESP 20; TEMP 36.2; O2SAT 99
[2022-10-31 17:05] LABS: Bedside Glucose 172 mg/dL (74-106)
--- NOTE | 2022-10-31 20:30 | NURSING ---
Informed during report that pt would like something for diarrhea. Pt reports loose/liquid stools for the past 2 days. Unable to recall how many times per day she has passed stools with these characteristics. Denies any nausea, vomiting, or abdominal pain. Bowel sounds hypoactive to the right lower and upper quadrant. Slightly hyperactive to the left upper and lower quadrants. No tenderness upon palpation. Informed pt d/t her recent hx of a bowel obstruction that a medication to slow down the GI tract would be contraindicated due to the risk of recurrent bowel obstruction. She verbalizes understanding. Will continue to monitor.
[2022-10-31] MEDS: Atorvastatin Calcium 40 MG Tablet PO (20:47)
[2022-10-31] MEDS: Mirtazapine 15 MG Tablet 7.5 MG PO (20:47)
[2022-10-31] MEDS: Insulin Glargine-YFGN 100 UNIT/ML Pen 20 UNIT SC (21:07)
[2022-10-31 21:31] LABS: Bedside Glucose 171 mg/dL (74-106)
[2022-11-01] MEDS: Ascorbic Acid 500 MG Tablet PO (05:12)
[2022-11-01] MEDS: Clopidogrel Bisulfate 75 MG Tablet PO (05:12)
[2022-11-01] MEDS: Doxycycline 100 MG CAPSULE PO ×2 (05:12→17:56)
[2022-11-01] MEDS: Iron Polysaccharide Complex 150 MG CAPSULE PO (05:12)
[2022-11-01 06:50] LABS: Bedside Glucose 92 mg/dL (74-106)
--- NOTE | 2022-11-01 08:14 | WOUNDNOTE ---
wound photo: abdomen
[2022-11-01] MEDS: Glimepiride 2 MG Tablet PO ×2 (08:28→17:56)
[2022-11-01] MEDS: Juven (unflavored) Packet 1 PACKET PO ×2 (08:28→17:56)
--- NOTE | 2022-11-01 08:52 | CASEMGMT ---
Social Work SW received call from pt dgt Carissa. Carissa acknowledging conversation regarding potential discharge on 11/04. Carissa stating that due to new dx of RSV, new issues with diahrea and confusion that pt not be discharged at this time. Carissa states she is working on getting private duty aids set up but will not have them in place by 11/04 and she is concerned with caring for pt with new medical issues. MAYDA explained that insurance update is due today and information will be provided. MAYDA will be in contact with Carissa when insurance determination is made. DONA Brandt
[2022-11-01 10:30] VITALS: PULSE 79; RESP 18; O2SAT 97
[2022-11-01] MEDS: Menthol/Lanolin/Calamine/Znox 113 GM Tube 1 APPLIC TOPICAL ×2 (10:34→22:29)
[2022-11-01] MEDS: Nystatin Powder 15gm Bottle 1 APPLIC TOPICAL ×2 (10:37→22:29)
[2022-11-01 11:11] LABS: Bedside Glucose 193 mg/dL (74-106)
[2022-11-01 13:33] VITALS: BP 122/62; PULSE 82; RESP 14; TEMP 36.6; O2SAT 95
[2022-11-01 16:35] LABS: Bedside Glucose 150 mg/dL (74-106)
[2022-11-01 22:15] LABS: Bedside Glucose 205 mg/dL (74-106)
[2022-11-01] MEDS: Insulin Glargine-YFGN 100 UNIT/ML Pen 10 UNIT SC (22:29)
[2022-11-01] MEDS: Mirtazapine 15 MG Tablet 7.5 MG PO (22:30)
[2022-11-01] MEDS: Atorvastatin Calcium 40 MG Tablet PO (22:30)
[2022-11-02] MEDS: Iron Polysaccharide Complex 150 MG CAPSULE PO (05:31)
[2022-11-02] MEDS: Doxycycline 100 MG CAPSULE PO ×2 (05:31→17:37)
[2022-11-02] MEDS: Senna/Docusate Sodium 1 Tablet PO (05:31)
[2022-11-02] MEDS: Clopidogrel Bisulfate 75 MG Tablet PO (05:32)
[2022-11-02] MEDS: Ascorbic Acid 500 MG Tablet PO (05:32)
[2022-11-02 06:40] LABS: Bedside Glucose 124 mg/dL (74-106)
[2022-11-02] MEDS: Glimepiride 2 MG Tablet PO ×2 (08:28→17:37)
[2022-11-02] MEDS: Juven (unflavored) Packet 1 PACKET PO ×2 (08:28→17:37)
[2022-11-02] MEDS: Menthol/Lanolin/Calamine/Znox 113 GM Tube 1 APPLIC TOPICAL ×2 (10:29→21:14)
[2022-11-02] MEDS: Nystatin Powder 15gm Bottle 1 APPLIC TOPICAL ×2 (10:29→21:14)
[2022-11-02 12:06] LABS: Bedside Glucose 167 mg/dL (74-106)
--- NOTE | 2022-11-02 15:29 | CASEMGMT ---
Social Work Spoke with dtr updating on insurance NRD 11/09 and inquiring about DC plans. Dtr states she and pt are ready for DC 11/04. IDT agreeable. Dtr requesting [facility]. Dtr stated the PASSPORT referral was completed. Dtr has hired nonskilled [employer] to assist in the interim. Pt still using O2 at night. SW made referral via phone and [facility] to [facility] for PT/OT/ST/SN/JIMENEZ/SW. Referral made via [employer] to [facility] for O2. Plan: DC home with dtr 11/04, [facility] PT/OT/ST/SN/JIMENEZ/SW, O2 night IVAN Colin
[2022-11-02 16:00] VITALS: BP 114/52; PULSE 66; RESP 14; TEMP 36.8; O2SAT 99
[2022-11-02 16:25] LABS: Bedside Glucose 123 mg/dL (74-106)
--- NOTE | 2022-11-02 19:37 | DS.PCM_ITS ---
Providers Date of Admission: 09/29/22 Primary Care Physician: Dr. Jim Triplett MD Consultations 09/29/22 19:00 Consult: Onc/Wound/veneer matcher Routine Comment: Reason for Consult:: Abdominal incision from bowel blockage. 09/29/22 20:01 Consult: General Surgery Routine Consulting Provider: Deanna Rivera Reason for Consult: s/p open right hemicolectomy. EMERGENT Consult: No MD Notified: Yes Date Notified: 09/29/22 Time Notified: 20:01 Method of Notification: Verbal Reason For Visit: COLON OBSTRUCTION Diagnosis Discharge Diagnosis (1) Debility: Status: Acute Code(s): R53.81 - Other malaise (2) Large bowel obstruction: Status: Acute Code(s): K56.609 - Unspecified intestinal obstruction, unspecified as to partial versus c omplete obstruction (3) Primary adenocarcinoma of ascending colon: Status: Acute Code(s): C18.2 - Malignant neoplasm of ascending colon (4) Diabetes mellitus: Status: Acute Code(s): E11.9 - Type 2 diabetes mellitus without complications (5) Hyperlipidemia: Status: Acute Code(s): E78.5 - Hyperlipidemia, unspecified (6) Stroke: Status: Acute Code(s): I63.9 - Cerebral infarction, unspecified (7) Iron deficiency anemia: Status: Acute Code(s): D50.9 - Iron deficiency anemia, unspecified Plan 82 year old female with below past medical history hospitalized for large bowel obstruction, underwent open right hemicolectomy with Dr. Rivera 09/16/2022 showing adenocarcinoma of ascending colon, admitted to TCU with debility, here for rehabilitation, strengthening, prior to discharge home alone. * Debility - PT/OT. * Cognition - ST. * Pain - Tylenol 1000mg q6h prn pain (1-10). * Bowel - Miralax 17gm daily, senna/colace 1 tablets bid. * Adult immunization - Administer pneumonia vaccine, covid19 vaccine, flu vaccine as appropriate. * DVT prophylaxis - Hold, anemia. * Iron deficiency anemia - Ferrex 150mg daily, Vitamin C 500mg daily. * Hyperlipidemia - Atorvastatin 40mg qhs. * Stroke - Plavix 75mg daily. * Diabetes Mellitus II - Glimepiride 2mg bid, Glargine 20 units qhs, Lispro 7 units tid. * Nutrition - Glucerna shake 120ml po tid. * Abdominal wound - Wound nurse, photos show progressive healing, Keith 1 packet bid. * Skin irritation - Calmoseptine topical bid. * Tinea corporis - Nystatin powder topical bid. * Nausea - Zofran 8mg q8h prn. * Appetite loss - Mirtazapine 7.5mg qhs. Medications at Discharge Home Medications atorvastatin 40 mg tablet 40 mg PO QHS CHOLESTEROL 09/09/22 clopidogrel 75 mg tablet 75 mg PO DAILY BLOOD THINNER 09/09/22 glimepiride 2 mg tablet 2 mg PO DAILY DIABETES 09/15/22 arginine 7 gram-glutam 7 gram-CaHMB 1.5 topw-rxsbm-qw-min oral pwd pkt (Keith (with collagen)) 1 packet PO BIDCM 30 days #60 ea 11/02/22 mirtazapine 15 mg tablet 7.5 mg PO QHS 30 days #15 tabs 11/02/22 Hospital Course Operations - (Open right hemicolectomy.) Procedures None Summary of Care Provided Minutes Spent on Discharge: 35 Hospital Course: 82 year old female with below past medical history hospitalized for large bowel obstruction, underwent open right hemicolectomy with Dr. Rivera 09/16/2022 showing adenocarcinoma of ascending colon, admitted to TCU with debility, here for rehabilitation, strengthening, prior to discharge home alone. Discharge home with daughter 11/04/2022, [facility] PT/OT/ST/SN/JIMENEZ/SW, oxygen at night. Physical Exam Const alert General Appearance: cooperative HEENT normocephalic Eyes PERRL and EOMs intact bilaterally Neck supple, no JVD and no carotid bruits Resp normal respiratory effort, normal air movement and clear to auscultation bila terally Cardio regular rate and regular rhythm GI normal to inspection, nondistended, normoactive bowel sounds, non-tender and non-distended Extremity normal capillary refill General Extremity: Negative for edema Skin no rashes or lesions noted General Skin Exam: no breakdown Psych affect normal Appearance: appropriate Medical Records Data Medical Nutrition Assessment Dietitian: Malnutrition Criteria Met Start: 09/30/22 14:09 Freq: Status: Active Protocol: Document 10/13/22 14:14 TELLO (Rec: 10/13/22 14:14 SLA [id number]) Nutrition Malnutrition Evidence of Malnutrition Exists Yes Malnutrition (severe): Acute Illness/Injury Evidenced By Suboptimal Energy Intake ( Moderate),Weight Loss (Severe) ,Physical Changes (Severe) Clinical Problem Acute Disease or Injury Related Malnutrition Etiology severe related to recent surgery and surgical incision - res having no appetite since hospitalized Signs/Symptoms as evidenced by po intake <75% of est nutritional needs and 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 Severe fat/muscle loss per NFPA Status Active Problem Recommendation Dietitian Recommendations/Changes Will continue liberal Regular d/t signs and symptoms of malnutrition Family to bring in 30 gm/8 oz supplements from home for res to drink w/ goal 3 bottles/day Continue Keith 1 packet bid w/ medpass Weight / BMI Weight Weight: 101.015 kg Body Mass Index (BMI) 39.6 ABG / Lab / Microbiology Data Result Diagrams: 10/28/22 05:16 10/28/22 05:16 Laboratory: Laboratory Results - last 24 hr 11/01/22 21:22: POC Glucose 205 H 11/02/22 05:59: POC Glucose 124 H 11/02/22 11:21: POC Glucose 167 H 11/02/22 15:54: POC Glucose 123 H Microbiology: Microbiology 10/27/22 13:10 Mucosa - Nasopharyngeal Respiratory Panel (PCR) - Final RSV A 10/03/22 05:30 Nasal Secretion SARS-CoV-2 Antigen (Rapid) - Final 10/01/22 05:10 Nasal Secretion SARS-CoV-2 Antigen (Rapid) - Final D/C Instructions Discharge Diet: No restrictions Discharge Activity: Return to Normal Activity, May Shower and Use Walker Weight Bearing Status: Weight bearing as tolerated Call your doctor if you observe: Fever of 101 or Higher, Inability to urinate, Inability to have a bowel movement, Shortness of breath, Dizziness, Fainting spells, Swelling in the ankles, Chest pain and Uncontrolled pain Additional Instructions: Discharge home with daughter 11/04/2022, [facility] PT/OT/ST/SN/JIMENEZ/SW, oxygen at night. Meaningful Use Info Meaningful Use Diagnoses (Choose all that apply): None applicable Discharge Plan Admission Admit Date/Time: 09/29/22 13:44 Primary Reason for Your Visit: Debility. Attending Provider: Jim Triplett Chi Primary Care Provider: Jim Triplett Chi Consulting Providers: Deanna Rivera Instructions Additional Instructions / Restrictions: Discharge home with daughter 11/04/2022, [facility] PT/OT/ST/SN/JIMENEZ/SW, oxygen at night. Discharge Orders/Prescriptions Prescriptions: New Keith (with collagen) 7-7-1.5 gram Powder In Packet 1 packet PO BIDCM 30 Days Qty: 60 0RF mirtazapine 15 mg Tablet 7.5 mg PO QHS 30 Days Qty: 15 0RF Continued atorvastatin 40 MG tablet 40 mg PO QHS clopidogrel 75 MG tablet 75 mg PO DAILY glimepiride 2 mg Tablet 2 mg PO DAILY Discontinued polysaccharide iron complex [Ferrex 150] 150 mg iron capsule 150 mg PO DAILY ascorbic acid (vitamin C) [Vitamin C] 500 mg Tablet 500 mg PO DAILY nystatin [Nyamyc] 100,000 unit/gram powder 1 applic TOPICAL BID polyethylene glycol 3350 17 gram/dose powder 17 g PO DAILY sennosides-docusate sodium [Senna with Docusate Sodium] 8.6-50 mg Tablet 2 tab-cap PO BID acetaminophen 500 mg Tablet 1,000 mg PO Q6H PRN (Reason: Pain) ondansetron 8 mg Tablet,Disintegrating 8 mg PO Q8H PRN (Reason: Nausea) Glucerna Shake Liquid 120 ml PO TIDCM menthol-zinc oxide [Calmoseptine] 0.44-20.6 % Ointment 1 applic TOPICAL BID@0600,2200 Keith (with collagen) 7-7-1.5 gram powder in packet 2 packet PO BIDCM Referrals / Follow Up: Jim Triplett Chi, MD [Primary Care Provider] - (Same day appointment please) Disposition Disposition (needs filled in before D/C Order can be placed): Home Health Service
[2022-11-02] MEDS: Mirtazapine 15 MG Tablet 7.5 MG PO (21:12)
[2022-11-02] MEDS: Atorvastatin Calcium 40 MG Tablet PO (21:13)
[2022-11-02 21:15] VITALS: PULSE 70; RESP 18; O2SAT 97
[2022-11-02 21:20] LABS: Bedside Glucose 155 mg/dL (74-106)
--- NOTE | 2022-11-02 21:31 | NURSING ---
Addendum entered by Allie Hooks 11/02/22 21:31: Dressing changed, Tolerated well, Minimal drainage. No c/o pain. Original Note: Dressing change
--- NOTE | 2022-11-02 21:34 | NURSING ---
Addendum entered by Allie Hooks 11/02/22 21:35: BLE appears red, hot to touch, pitting +2 edema Original Note: Bl
[2022-11-03] MEDS: Iron Polysaccharide Complex 150 MG CAPSULE PO (05:15)
[2022-11-03] MEDS: Doxycycline 100 MG CAPSULE PO ×2 (05:16→17:47)
[2022-11-03] MEDS: Clopidogrel Bisulfate 75 MG Tablet PO (05:16)
[2022-11-03] MEDS: Ascorbic Acid 500 MG Tablet PO (05:16)
[2022-11-03 06:45] LABS: Bedside Glucose 107 mg/dL (74-106)
[2022-11-03] MEDS: Glimepiride 2 MG Tablet PO ×2 (08:12→17:47)
[2022-11-03] MEDS: Nystatin Powder 15gm Bottle 1 APPLIC TOPICAL ×2 (08:17→21:31)
[2022-11-03] MEDS: Menthol/Lanolin/Calamine/Znox 113 GM Tube 1 APPLIC TOPICAL ×2 (08:17→21:31)
[2022-11-03 11:31] LABS: Bedside Glucose 180 mg/dL (74-106)
[2022-11-03 14:51] VITALS: BP 116/48; PULSE 72; RESP 16; TEMP 37.1; O2SAT 98
--- NOTE | 2022-11-03 16:14 | NURSING ---
Daughter is requesting that staff wait until she comes in at noon tomorrow to perform dressing change so she can watch it.
[2022-11-03 16:20] LABS: Bedside Glucose 205 mg/dL (74-106)
[2022-11-03] MEDS: Juven (unflavored) Packet 1 PACKET PO (17:46)
[2022-11-03] MEDS: Atorvastatin Calcium 40 MG Tablet PO (21:29)
[2022-11-03] MEDS: Mirtazapine 15 MG Tablet 7.5 MG PO (21:29)
[2022-11-03 21:55] LABS: Bedside Glucose 185 mg/dL (74-106)
[2022-11-04 05:00] VITALS: BP 113/52; PULSE 86
[2022-11-04] MEDS: Ascorbic Acid 500 MG Tablet PO (05:07)
[2022-11-04] MEDS: Iron Polysaccharide Complex 150 MG CAPSULE PO (05:07)
[2022-11-04] MEDS: Clopidogrel Bisulfate 75 MG Tablet PO (05:07)
[2022-11-04 05:56] LABS: Absolute Lymphocyte Count 2.73 X10^3/uL (0.83-4.51); Absolute Neutrophil Count 5.7 X10^3/uL (2.0-7.7); Basophil# 0.05 X10^3/uL; Basophil% 0.5 % (0-1); Eosinophil# 0.46 X10^3/uL; Eosinophils% 4.7 % (0-5); Hematocrit 34.3 % (37-47); Hemoglobin 10.2 g/dL (12.0-15.0); Lymphocyte # 2.73 X10^3/ul (0.83-4.51); Lymphocyte % 27.7 % (19-41); Mean Corp Hgb Conc 29.7 g/dL (32-36); Mean Corpuscular Hgb 26.2 pg (27.0-32.0); Mean Corpuscular Volume 87.9 fL (81-99); Mean Platelet Vol. 12.3 fl (6.2-12.0); Monocyte# 0.85 X10^3/uL; Monocyte% 8.6 % (0-10); NRBC Flagged by Analyzer 0 % (0-5); Neutrophil # 5.72 X10^3/uL (2.7-7.7); Neutrophil % 58.2 % (47-70); POSITIVE MORPHOLOGY YES; Platelet Count 290 K/mm3 (150-450); RBC Distribution Width CV 23.5 % (11.6-14.6); RBC Distribution Width SD 74.4 fl (35.1-43.9); White Blood Count 9.8 K/mm3 (4.4-11.0)
[2022-11-04 06:01] LABS: Differential Indicated SCAN CRITERIA MET
[2022-11-04 06:23] LABS: Anion Gap 5 (5-15); BUN 42 mg/dL (7-18); BUN/Creat Ratio 62.1 RATIO (10-20); Calcium,Total 9.6 mg/dL (8.5-10.1); Chloride 112 mmol/L (98-107); Creatinine, Serum 0.68 mg/dL (0.55-1.02); EST Glomerular Filtration Rate 89 mL/min (>60); Est Glom Filt Rate - Afr Amer 107 mL/min (>60); Estimated Creatinine Clearance 37.45 ml/min; Glucose 183 mg/dL (74-106); Potassium 3.8 mmol/L (3.5-5.1); Sodium Level 140 mmol/L (136-145)
[2022-11-04 06:31] LABS: Bedside Glucose 166 mg/dL (74-106)
[2022-11-04 06:50] LABS: Anisocytosis 1+; Differential Comment SCANNED
[2022-11-04] MEDS: Glimepiride 2 MG Tablet PO (07:57)
[2022-11-04] MEDS: Juven (unflavored) Packet 1 PACKET PO (07:57)
--- NOTE | 2022-11-04 09:52 | MDS.RN ---
Information for the mds was obtained from review of the clinical record, interview of resident, staff, and direct observation of resident's care.
[2022-11-04 11:25] LABS: Bedside Glucose 210 mg/dL (74-106)
[2022-11-04 12:03] LABS: Prealbumin 13.8 mg/dL (20.0-40.0)
[2022-11-04 13:02] VITALS: BP 130/49; PULSE 74; RESP 18; TEMP 36.4; O2SAT 97
--- NOTE | 2022-11-04 14:40 | CASEMGMT ---
Social Work BIMS () and PHQ-9 () completed for MDS assessment. Violeta Gentile MSW [employer]
== END 2022-11-04 13:20 | disposition home health service (06) | DRG 949 ==
PROVIDERS: Surgery; Admitting Provider Family Medicine Geriatric Medicine; PCP Family Medicine Geriatric Medicine; Visit Provider Family Medicine Geriatric Medicine
DX: Z48.815 Encounter for surgical aftercare following surgery on the digestive system (principal); J90 Pleural effusion, not elsewhere classified; K56.609 Unspecified intestinal obstruction, unspecified as to partial versus complete obstruction; C18.2 Malignant neoplasm of ascending colon; E11.9 Type 2 diabetes mellitus without complications; B35.4 Tinea corporis; D50.9 Iron deficiency anemia, unspecified; E78.5 Hyperlipidemia, unspecified; Z79.84 Long term (current) use of oral hypoglycemic drugs; Z79.02 Long term (current) use of antithrombotics/antiplatelets; Z79.899 Other long term (current) drug therapy; Z90.49 Acquired absence of other specified parts of digestive tract
CPT/HCPCS: 36415; 80048; 82962; 84134; 85025; 87426; 87633; 87635; 87811; 92507; 92523; 92526; 94640; 94762; 97110; 97116; 97129; 97130; 97162; 97166; 97530; 97535; 97802; U0003; U0005

== ENCOUNTER → 2022-12-07 | Outpatient (CLI) | payer MEDICARE, MEDICAID, SELFPAY ==
--- NOTE | 2022-12-07 14:10 | RAD_ITS ---
EXAM: XR ABDOMEN, 2 VIEWS CLINICAL INDICATION: FECAL IMPACTION TECHNIQUE: Frontal view of the abdomen/pelvis with upright view of the abdomen. This report was created using Sw[employer] report generation technology. COMPARISON: None. FINDINGS: LOWER THORAX: No acute pathology. INTRAPERITONEAL SPACE: No free air. GASTROINTESTINAL TRACT: Unremarkable. Non-obstructive. No bowel or stomach distention. ORGANS: Unremarkable as visualized. No organomegaly. No abnormal calcifications. BONES/JOINTS: There are bilateral hip replacements. SOFT TISSUES: No acute pathology. RAD/Abd Inc Decub and/or Erect IMPRESSION: No acute findings in the abdomen or pelvis. Electronically Signed: Ashutosh Chen MD at 18:31 EST ,
== END | disposition home or self-care (01) ==
LOC: RAD 13:56
PROVIDERS: PCP Family Medicine Geriatric Medicine; Referring Provider Family Medicine Geriatric Medicine; Visit Provider Family Medicine Geriatric Medicine
DX: K56.41 Fecal impaction (principal); Z96.643 Presence of artificial hip joint, bilateral
CPT/HCPCS: 74019

== ENCOUNTER 2022-12-28 10:05 | Observation (INO) | payer MEDICARE, MEDICAID, SELFPAY ==
[2022-12-28] VITALS (13 sets, daily range): BP systolic 104–152; BP diastolic 39–89; PULSE 68–88; RESP 15–23; TEMP 36.1–36.8; O2SAT 93–98; BMI 40.5; BMI 41.0
--- NOTE | 2022-12-28 10:07 | EKG12_ITS ---
Test Reason : CVA Blood Pressure : / mmHG Vent. Rate : 083 BPM Atrial Rate : 083 BPM P-R Int : 192 ms QRS Dur : 140 ms QT Int : 408 ms P-R-T Axes : 046 -61 053 degrees QTc Int : 479 ms Normal sinus rhythm with sinus arrhythmia Right bundle branch block Left anterior fascicular block Bifascicular block Minimal voltage criteria for LVH, may be normal variant ( R in aVL ) Abnormal ECG Confirmed by RYAN SAUCEDA MD ([id number]), restaurant expeditor RANI SOTELO ([id number]) on 12/30/2022 11:37:07 AM Referred By: CG Confirmed By:RYAN SAUCEDA MD
--- NOTE | 2022-12-28 10:07 | CT_ITS ---
STUDY: CT HEAD STROKE PROTOCOL W/O CONTRAST INJECTION REASON FOR EXAM: Female, 82 years old. Neuro deficit, acute, stroke suspected RADIATION DOSAGE (If Supplied By Facility): CTDIvol = ( 44.99 ) mGy, DLP = ( 762.36 ) mGycm TECHNIQUE: Transaxial CT imaging of the brain was performed without administration of intravenous contrast material. Individualized dose optimization techniques were used for this CT. COMPARISON: Comparison is made with prior study dated 09/01/2018. FINDINGS: Normal soft tissue structures. Normal calvarium. There is mild cerebral atrophy with widening of the extra-axial spaces and ventricular dilatation. There are areas of decreased attenuation within the white matter tracts of the supratentorial brain, consistent with microvascular disease changes. Focal area of decreased attenuation in the white matter of the left parietal lobe. This is compatible with old ischemic change. Normal basal ganglia and thalami. Normal brainstem. Normal cerebellum. There is no intracranial hemorrhage. There are no findings of an acute ischemic infarction. Atherosclerotic calcification of the cavernous portions of the internal carotid arteries bilaterally. Mucosal thickening at the base of the left maxillary sinus and posterior aspect of the right ethmoid sinus. ASPECT score: 10 CT/STROKE Brain/Head without Cont IMPRESSION: Chronic involutional changes of the brain. No acute abnormality is seen. N.B. : The above Results were Read Back by Lamonte Gaona MD to Dr Alfonso MD, and understanding confirmed on 12/28/2022 10:21:03 (ET). Electronically Signed: Lamonte Gaona MD at 10:22 EST ,
--- NOTE | 2022-12-28 10:07 | EDS_ITS ---
HPI History of Present Illness Chief Complaint: Neuro S/Sx Informant: patient and family Narrative Narrative: Patient is an 82-year-old female with history of hypertension, hyperlipidemia, stroke and colon cancer presenting with left-sided weakness. Patient states she woke up and was getting ready to make breakfast and making tea when she felt that her left arm was in water. She looked and that was not in water. She then developed weakness of her left arm. This was around 9:10 AM. Her daughter states she was not moving her left arm at all initially. Patient continues to have paresthesias and weakness of her left arm but has improvement of her weakness. She denies any other symptoms including slurred speech, vision changes or other weakness. She has a history of stroke/TIA with slurred speech and paresthesias of her left hand. No residual deficits from that. Patient is on Plavix daily. She thinks she might of taken it this morning. No other complaints at this time. [place] fine when she woke up this morning. Does have a history of generalized weakness and poor range of motion of her left shoulder. [facility], [facility] Medical History Anemia Colon cancer Diabetes Stroke TIA (transient ischemic attack) Type II diabetes mellitus Home Medications atorvastatin 40 mg tablet 40 mg PO QHS CHOLESTEROL 09/09/22 [History Last Taken 09/14/22 21:20] clopidogrel 75 mg tablet 75 mg PO DAILY BLOOD THINNER 09/09/22 [History Last Taken 09/15/22 05:41] glimepiride 2 mg tablet 2 mg PO DAILY DIABETES 09/15/22 [History Last Taken 09/13/22 08:00] cholestyramine (with sugar) 4 gram powder for susp in a packet 1 ea PO DAILY 12/28/22 [History Last Taken Unknown] Allergy/AdvReac Type Severity Reaction Status Date / Time No Known Allergies Allergy Verified 12/28/22 10:17 Family History Mother , at 91. Dementia Father , at 76. Cancer Alcohol abuse Sister Parkinson disease Surgical History History of hernia repair History of right hemicolectomy History of right hip replacement History of total left hip replacement Social History household members: children and other details: Daughter Carissa. Smoking Status: Never smoker alcohol intake: never substance use type: does not use ROS ROS ED Constitutional Constitutional ED: Denies chills or fever(s) Eyes Eyes: Denies blurry vision or change in vision ENT ENT ED: Denies sore throat Cardiovascular Cardiovascular: Denies chest pain or palpitations Respiratory/Chest Respiratory/Chest: Denies cough Gastrointestinal Gastrointestinal: Denies abdominal pain, nausea or vomiting Musculoskeletal Musculoskeletal: Denies arthralgias or myalgias Integumentary Denies rash Neurologic Neurologic: Reports paresthesias and weakness Psychiatric Psychiatric: Denies anxiety or depression Hematologic/Lymphatic Hematologic/Lymphatic: Denies easy bleeding or easy bruising EXAM Physical Exam Const Vital Signs: 12/28/22 10:10 12/28/22 10:13 12/28/22 10:14 Temperature 97 F L 97 F L Temperature Source Temporal Temporal Pulse Rate 84 88 Respiratory Rate 18 18 Blood Pressure 116/54 L 104/57 L Blood Pressure Mean 74 72 Pulse Ox 97 97 97 Oxygen Delivery Method Room Air Room Air Room Air 12/28/22 10:46 12/28/22 11:16 Temperature Temperature Source Pulse Rate 74 73 Respiratory Rate 16 18 Blood Pressure 140/39 H 123/62 H Blood Pressure Mean 72 82 Pulse Ox 97 96 Oxygen Delivery Method Room Air Room Air Positive well nourished and well developed General Appearance ED: well developed and NAD HEENT Reports moist mucous membranes atraumatic Eyes PERRL and EOMs intact bilaterally Neck supple Chest Wall inspection of chest normal Resp normal respiratory effort Cardio Cardio Narrative: 2+ bilateral radial pulses GI normal to inspection, nondistended, normoactive bowel sounds Extremity normal to inspection Extremity Narrative: Decreased range of motion of the left shoulder. Patient reports pain in her left shoulder when trying to hold up her left arm for the 10 seconds General Extremety ED: Negative for deformity or tenderness General Extremity: Negative for deformity Neuro oriented x3 and CN's II-XII intact bilaterally Neuro Narrative: NIH equals 2 for subjective paresthesias of the left upper extremity and drift without hitting the bed of the left upper extremity Sensorium / Orientation: alert, oriented to person, oriented to place and oriented to time Speech: speech normal Motor Exam: Negative for general weakness Psych mental status grossly normal Skin no wounds Rashes: no rashes NIHSS NIHSS Initial: 1a Level of Consciousness: 0 1b LOC Questions (Score 2 if aphasic/stupor): 0 1c LOC Commands (Only score 1st attempt): 0 2 Best Gaze (If aphasic, use reflexive mvmts.): 0 3 Visual: 0 4 Facial Palsy: 0 5 Motor Arm Right (UN = amputation/fusion): 0 5 Motor Arm Left: 1 6 Motor Leg Right: 0 6 Motor Leg Left: 0 7 Limb ataxia (Only + if out of proportion): 0 8 Sensory (Aphasia/stupor=0 or 1, coma=2): 1 9 Best Language: 0 10 Dysarthria (mute, coma=2, intubated=UN): 0 11 Extinction and Inattention (only scored if +): 0 Total Score: 2 MDM MDM MDM Narrative Medical decision making narrative: Patient evaluated for sudden onset of paresthesias and weakness of her left upper extremity. Patient was evaluated in triage immediately upon arrival by myself. Stroke alert was called given her acute onset of symptoms with last known well within the last hour. Differential includes intracranial hemorrhage, TIA, ischemic stroke, intracerebral mass as well as electrode abnormalities. Patient symptoms are improving so I do not think she is a TNK candidate. A CT o f the brain does not show any acute intracranial process. This is relayed to me directly by radiology, Dr. Gaona. Lab work is largely unremarkable with no significant anemia, leukocytosis or electrolyte abnormalities. CTA of the head and neck is then ordered which does show greater than 70% narrowing of the origin of the left internal carotid artery due to calcific plaque and less than 50% narrowing of the origin of the right internal carotid artery with no other acute process reported. Patient is given aspirin in the ER. Case is discussed with telemetry neurology who agrees that patient does not meet TNK criteria but does recommend admission for further evaluation of TIA versus stroke. Case is discussed with admitting physician, Dr. Box, who accepts the patient to his service. Patient remains hemodynamically stable in the emergency room. Lab Data Attestation: I reviewed the patient's lab results. Labs: Laboratory Results - last 24 hr 12/28/22 12/28/22 12/28/22 10:10 10:10 10:10 WBC 9.2 RBC 4.29 Hgb 12.2 Hct 39.5 MCV 92.1 MCH 28.4 MCHC 30.9 L RDW Std Deviation 57.0 H RDW Coeff of Naren 16.8 H Plt Count 283 MPV 12.2 H Immature Gran % (Auto) 0.500 Neut % (Auto) 61.1 Lymph % (Auto) 28.6 [place] % (Auto) 6.9 Eos % (Auto) 2.5 Baso % (Auto) 0.4 Absolute Neuts (auto) 5.6 Absolute Lymphs (auto) 2.63 Nucleated RBC % 0 PT 13.7 INR 1.1 APTT 28.4 Sodium 144 Potassium 4.1 Chloride 112 H Carbon Dioxide 24.0 Anion Gap 8 BUN 22 H Creatinine 0.90 Estim Creat Clear Calc 41.62 Est GFR (MDRD) Af Amer 77 Est GFR (MDRD) Non-Af 64 BUN/Creatinine Ratio 24.5 H Glucose 195 H Calcium 9.7 Troponin I High Sens 10 Radiography Diagnostic Testing: Clinical Impression(s) from Imaging Studies Brain CT 12/28/22 10:07 IMPRESSION: Chronic involutional changes of the brain. No acute abnormality is seen. N.B. : The above Results were Read Back by Lamonte Gaona MD to Dr Alfonso MD, and understanding confirmed on 12/28/2022 10:21:03 (ET). Electronically Signed: Lamonte Gaona MD at 10:22 EST , ADDENDUM: 12/28/22 1029 IMPRESSION: Chronic involutional changes of the brain. No acute abnormality is seen. N.B. : The above Results were Read Back by Lamonte Gaona MD to Dr Alfonso MD, and understanding confirmed on 12/28/2022 10:21:03 (ET). Electronically Signed: Lamonte Gaona MD at 10:22 EST , Head/Neck CTA 12/28/22 10:21 IMPRESSION: Greater than 70% narrowing at the origin of the left internal carotid artery due to calcific plaque. Less than 50% narrowing at the origin of the right internal carotid artery. N.B. : The above Results were Read Back by Lamonte Gaona MD to Radha Hamilton and understanding confirmed on 12/28/2022 11:25:30 (ET). Electronically Signed: Lamonte Gaona MD at 11:26 EST , ADDENDUM: 12/28/22 1133 IMPRESSION: Greater than 70% narrowing at the origin of the left internal carotid artery due to calcific plaque. Less than 50% narrowing at the origin of the right internal carotid artery. N.B. : The above Results were Read Back by Lamonte Gaona MD to Radha Hamilton and understanding confirmed on 12/28/2022 11:25:30 (ET). Electronically Signed: Lamonte Gaona MD at 11:26 EST , Rhythm Strip Rhythm Strip: Sinus Rhythm Rate: 83 Ectopy: None EKG Initial EKG: Attestation: I personally reviewed and interpreted this EKG as follows: Interpretation: Sinus Rhythm Comments: Normal sinus rhythm with sinus arrhythmia at a rate of 83 bpm Left axis deviation Bifascicular block Minimal voltage criteria for LVH Nonspecific T wave changes Compared to prior EKG patient now also has a left anterior fascicular block Discharge Plan Triage Chief Complaint: Neuro S/Sx ED Provider: Radha Hamilton Dx/Rx/DC Orders Clinical Impression: TIA (transient ischemic attack), Left arm weakness, Arm paresthesia, left Prescriptions: No Action atorvastatin 40 MG tablet 40 mg PO QHS clopidogrel 75 MG tablet 75 mg PO DAILY glimepiride 2 mg Tablet 2 mg PO DAILY cholestyramine (with sugar) 4 gram powder in packet 1 ea PO DAILY Primary Care Provider: Jim Triplett Chi Referrals: Jim Triplett Chi, MD [Primary Care Provider] - Disposition Disposition: Acute Care Hospital [facility]
--- NOTE | 2022-12-28 10:07 | RAD_ITS ---
STUDY: X-RAY CHEST REASON FOR EXAM: Female, 82 years old. Neuro deficit, acute, stroke suspected TECHNIQUE: Single AP portable view of the chest. COMPARISON: Comparison is made with prior study dated 09/16/2022. FINDINGS: EKG electrodes are seen. The lungs are clear and expanded. There is no demonstrated pleural abnormality. Calcified mitral annulus. Normal mediastinum and ishmael. Normal visualized pulmonary arteries. There is atherosclerotic calcification of the aortic arch with tortuosity. Normal visualized thoracic spine. There is degenerative osteoarthritis of the bilateral shoulders. There is no demonstrated abnormality of the visualized soft tissue structures of the upper abdomen. RAD/Chest 1 View IMPRESSION: No acute abnormality is seen. Electronically Signed: Lamonte Gaona MD at 14:08 EST ,
--- NOTE | 2022-12-28 10:15 | CM.ED ---
Social Work Note Referral Source: Stroke Alert Referral Reason: Emotional Support SW responded to stroke alert to provide emotional support to available family; patient's granddaughter is [facility] staff and assisting in patient's room. SW available if other family arrives and/or needs arise. Adina Laws MICROBIOLOGY LAB ANALYST, [place]
--- NOTE | 2022-12-28 10:21 | CT_ITS ---
STUDY: CTA HEAD AND NECK WITH CONTRAST REASON FOR EXAM: Female, 82 years old. left sided arm weakness RADIATION DOSAGE (If Supplied By Facility): CTDIvol = ( 21.86 ) mGy, DLP = ( 725.54 ) mGycm TECHNIQUE: CT angiography was performed with a multi-detector CT scanner. Data acquisition was obtained from the skull base through the vertex following intravenous administration of IV 100mL [id number]-[id number]. MIP images were reconstructed from the axial data set. Post-processing of the angiographic images was performed, with multiplanar reformation and 3D reconstruction. Individualized dose optimization techniques were used for this CT. COMPARISON: No relevant priors. FINDINGS: Normal bilateral petrous carotid arteries. There is calcified plaque formation of the right cavernous carotid artery, without a cross-sectional luminal stenosis. There is calcified plaque formation of the left cavernous carotid artery, without a cross-sectional luminal stenosis. Normal right A1 segments of the anterior cerebral artery. Normal left A1 segments of the anterior cerebral artery. Normal intact anterior communicating artery (ACOM). Normal bilateral A2 segments of the anterior cerebral arteries. Normal right M1 and M2 segments of the middle cerebral arteries, with a normal M1 bifurcation. Normal left M1 and M2 segments of the middle cerebral arteries, with a normal M1 bifurcation. Normal right posterior communicating artery (PCOM). Normal left posterior communicating artery (PCOM). Normal bilateral vertebral arteries. Normal basilar artery with a normal basilar bifurcation. The visualized bilateral superior cerebellar (SCA) arteries are normal. Normal bilateral P1, P2 and visualized P3 segments of the posterior cerebral arteries. There is no demonstrated aneurysm of the [place] of [place]. AORTIC ARCH: There is atherosclerotic calcific plaque formation of the aortic arch and great vessels arising from the aortic arch, without a hemodynamically significant stenosis. There is a normal origin of the brachiocephalic, left common carotid, and left subclavian arteries. Atherosclerotic calcific plaques at the origin of the left subclavian artery and right brachiocephalic artery. Calcified mediastinal and hilar lymph nodes. RIGHT CAROTID ARTERIES: Normal right common carotid artery (CCA). Normal right common carotid bulb. There is mild atherosclerotic plaque formation of the origin of the right internal carotid artery with less than 50% cross sectional diameter stenosis. Normal visualized cervical portion of the right internal carotid artery. Normal origin of the right external carotid artery (ECA). LEFT CAROTID ARTERIES: Normal left common carotid artery (CCA). Normal left common carotid bulb. There is extensive atherosclerotic plaque formation of the origin of the left internal carotid artery with an estimated stenosis of greater than 70%. Normal visualized cervical portion of the left internal carotid artery. Normal origin of the left external carotid artery (ECA). VERTEBRAL ARTERIES: Normal bilateral vertebral arteries. CT/STROKE CTA Head AND Neck W/Con IMPRESSION: Greater than 70% narrowing at the origin of the left internal carotid artery due to calcific plaque. Less than 50% narrowing at the origin of the right internal carotid artery. N.B. : The above Results were Read Back by Lamonte Gaona MD to Radha Hamilton and understanding confirmed on 12/28/2022 11:25:30 (ET). Electronically Signed: Lamonte Gaona MD at 11:26 EST ,
[2022-12-28 10:24] LABS: Absolute Lymphocyte Count 2.63 X10^3/uL (0.83-4.51); Absolute Neutrophil Count 5.6 X10^3/uL (2.0-7.7); Basophil# 0.04 X10^3/uL; Basophil% 0.4 % (0-1); Eosinophil# 0.23 X10^3/uL; Eosinophils% 2.5 % (0-5); Hematocrit 39.5 % (37-47); Hemoglobin 12.2 g/dL (12.0-15.0); Lymphocyte # 2.63 X10^3/ul (0.83-4.51); Lymphocyte % 28.6 % (19-41); Mean Corp Hgb Conc 30.9 g/dL (32-36); Mean Corpuscular Hgb 28.4 pg (27.0-32.0); Mean Corpuscular Volume 92.1 fL (81-99); Mean Platelet Vol. 12.2 fl (6.2-12.0); Monocyte# 0.63 X10^3/uL; Monocyte% 6.9 % (0-10); NRBC Flagged by Analyzer 0 % (0-5); Neutrophil # 5.61 X10^3/uL (2.7-7.7); Neutrophil % 61.1 % (47-70); Platelet Count 283 K/mm3 (150-450); RBC Distribution Width CV 16.8 % (11.6-14.6); Red Blood Count 4.29 M/mm3 (4.2-5.4); White Blood Count 9.2 K/mm3 (4.4-11.0)
[2022-12-28 10:35] LABS: International Normalized Ratio 1.1; Partial Thromboplast Time 28.4 Seconds (24.1-36.2); Prothrombin Time (Protime)PT. 13.7 SECONDS (11.7-14.9)
[2022-12-28 10:47] LABS: Anion Gap 8 (5-15); BUN 22 mg/dL (7-18); BUN/Creat Ratio 24.5 RATIO (10-20); Calcium,Total 9.7 mg/dL (8.5-10.1); Chloride 112 mmol/L (98-107); EST Glomerular Filtration Rate 64 mL/min (>60); Est Glom Filt Rate - Afr Amer 77 mL/min (>60); Estimated Creatinine Clearance 41.62 ml/min; Glucose 195 mg/dL (74-106); Potassium 4.1 mmol/L (3.5-5.1); Sodium Level 144 mmol/L (136-145); Troponin-I HS 10 pg/mL (3.0-54.0)
[2022-12-28] MEDS: Aspirin E.C. 325 MG Tablet PO (11:23)
--- NOTE | 2022-12-28 11:54 | MRI_ITS ---
EXAM: MR HEAD WITHOUT INTRAVENOUS CONTRAST CLINICAL INDICATION: CVA. Left arm weakness and tingling. History of colon carcinoma and prior CVA. TECHNIQUE: Multiplanar and multisequence MR images of the brain were obtained without intravenous contrast. This report was created using [employer] report generation technology. COMPARISON: CT head without contrast and CTA head and neck with contrast 12/28/2022. FINDINGS: BRAIN AND EXTRA-AXIAL SPACES: T2 FLAIR hyperintensity foci in the white matter of both cerebral hemispheres are chronic white matter ischemic changes. No intra- or extra-axial hemorrhage. No intracranial mass or mass effect. Posterior fossa structures are unremarkable. Ventricles are appropriate for age. No hydrocephalus. Basal cisterns are patent. No diffusion restriction to suspect acute or subacute ischemic infarct. SELLA: Unremarkable. Normal sella turcica, pituitary gland, infundibular stalk, optic chiasm and hypothalamus. AUDITORY SYSTEM: Unremarkable. The internal auditory canals are patent. BONES/JOINTS: Unremarkable. No discrete lytic or blastic abnormalities. SINUSES: Mucosal edema of the ethmoid sinus, left sphenoid sinus and left maxillary sinus. Contraction of the left maxillary sinus due to chronic sinusitis. MASTOID AIR CELLS: Unremarkable as visualized. Clear. ORBITS: Unremarkable as visualized. Both globes, extraocular muscles, optic nerves and retrobulbar fat appear unremarkable. VASCULATURE: Unremarkable as visualized. Normal flow voids in the major intracranial circulation. MRI/Brain without Contrast IMPRESSION: 1. No MRI evidence of acute or subacute ischemic infarct, intracranial mass or acute intracranial abnormality. 2. Chronic white matter ischemic changes in both cerebral hemispheres. 3. Mucosal edema/thickening in the ethmoid sinuses, left sphenoid sinus and the contracted left maxillary sinus. Electronically Signed: Arpan Alvarez MD at 15:30 EST ,
--- NOTE | 2022-12-28 11:56 | HP.PCM.HOS_ITS ---
HPI - General General Date of Admission: 12/28/22 Date of Service: 12/28/22 Chief Complaint: Left arm weakness HPI Narrative YECENIA LAZAR, is a 82 F with past medical history significant for previous TIAs, hypertension dyslipidemia who presents with left arm weakness. Per patient she was in her usual state of health till 9 AM on the morning of presentation when he did experience significant left weakness. Her daughter who was with her noticed slumping of the left arm. She did call describing patient was brought to the emergency department. Patient denied any slurred speech. Denied any numbness involving the left arm. In the emergency department initial head CT was negative for acute CVA. The NIH score was only 2 and patient was improving patient was therefore deemed not a candidate for tPA. Admitted to a monitored bed for further management [facility] Medical History Anemia Colon cancer Diabetes Stroke TIA (transient ischemic attack) Type II diabetes mellitus Home Medications atorvastatin 40 mg tablet 40 mg PO QHS CHOLESTEROL 09/09/22 [History Last Taken 09/14/22 21:20] clopidogrel 75 mg tablet 75 mg PO DAILY BLOOD THINNER 09/09/22 [History Last Taken 09/15/22 05:41] glimepiride 2 mg tablet 2 mg PO DAILY DIABETES 09/15/22 [History Last Taken 09/13/22 08:00] cholestyramine (with sugar) 4 gram powder for susp in a packet 1 ea PO DAILY 12/28/22 [History Last Taken Unknown] Allergy/AdvReac Type Severity Reaction Status Date / Time No Known Allergies Allergy Verified 12/28/22 10:17 Family History Mother , at 91. Dementia Father , at 76. Cancer Alcohol abuse Sister Parkinson disease Surgical History History of hernia repair History of right hemicolectomy History of right hip replacement History of total left hip replacement Social History household members: children and other details: Daughter Carissa. Smoking Status: Never smoker alcohol intake: never substance use type: does not use ROS ROS Narrative GENERAL: denies fever, chills, night sweats, HEENT: denies headache, sinus congestion, RESPIRATORY: denies cough, sputum production, CARDIAC: denies chest pain, palpitations, orthopnea, PND GASTROINTESTINAL: denies abdominal pain, nausea, vomiting, melena, GENITOURINARY: denies dysuria, urgency, frequency, heamaturia EXTREMITY: denies swelling MUSCULOSKELETAL: denies current joint pain or tenderness NEUROLOGIC: Left upper extremity weakness HEMATOLOGIC: denies easy bruising and/or hemorrhage INTEGUMENT: denies rashes PSYCHIATRIC: denies suicidal or homicidal ideation Vital Signs Vital Signs Vital Signs: 12/28/22 10:10 12/28/22 10:13 12/28/22 10:14 Temperature 97 F L 97 F L Temperature Source Temporal Temporal Pulse Rate 84 88 Respiratory Rate 18 18 Blood Pressure 116/54 L 104/57 L Blood Pressure Mean 74 72 Pulse Ox 97 97 97 Oxygen Delivery Method Room Air Room Air Room Air 12/28/22 10:46 12/28/22 11:16 Temperature Temperature Source Pulse Rate 74 73 Respiratory Rate 16 18 Blood Pressure 140/39 H 123/62 H Blood Pressure Mean 72 82 Pulse Ox 97 96 Oxygen Delivery Method Room Air Room Air Weight Weight: 107.1 kg Body Mass Index (BMI) 40.5 Physical Exam Narrative GENERAL: cooperative HEENT: Atraumatic; normocephalic EYES; Anicteric, Normal Conjunctiva NECK; supple, normal thyroid, RESPIRATORY: Diminished to auscultation CARDIOVASCULAR: Regular S1 S2, GI: soft, normoactive bowel sounds, : No Renal angle tenderness; EXTREMITIES: No edema, no clubbing, MUSCULOSKELETAL: no muscle wasting NEURO: Awake; no lateralizing signs. SKIN: No Rash PSYCH; Flat affect Results Lab / Micro Data Result Diagrams: 12/28/22 10:10 12/28/22 10:10 Labs: Laboratory Results - last 24 hr 12/28/22 10:10: WBC 9.2, RBC 4.29, Hgb 12.2, Hct 39.5, MCV 92.1, MCH 28.4, MCHC 30.9 L, RDW Std Deviation 57.0 H, RDW Coeff of Naren 16.8 H, Plt Count 283, MPV 12.2 H, Immature Gran % (Auto) 0.500, Neut % (Auto) 61.1, Lymph % (Auto) 28.6, [place] % (Auto) 6.9, Eos % (Auto) 2.5, Baso % (Auto) 0.4, Absolute Neuts (auto) 5.6, Absolute Lymphs (auto) 2.63, Nucleated RBC % 0 12/28/22 10:10: PT 13.7, INR 1.1, APTT 28.4 12/28/22 10:10: Sodium 144, Potassium 4.1, Chloride 112 H, Carbon Dioxide 24.0, Anion Gap 8, BUN 22 H, Creatinine 0.90, Estim Creat Clear Calc 41.62, Est GFR (MDRD) Af Amer 77, Est GFR (MDRD) Non-Af 64, BUN/Creatinine Ratio 24.5 H, Glucose 195 H, Calcium 9.7, Troponin I High Sens 10 Rhythm Strip Rhythm Strip: Sinus Rhythm Rate: 83 Ectopy: None Radiology Impression Brain CT 12/28/22 10:07 IMPRESSION: Chronic involutional changes of the brain. No acute abnormality is seen. N.B. : The above Results were Read Back by Lamonte Gaona MD to Dr Alfonso MD, and understanding confirmed on 12/28/2022 10:21:03 (ET). Electronically Signed: Lamonte Gaona MD at 10:22 EST , ADDENDUM: 12/28/22 1029 IMPRESSION: Chronic involutional changes of the brain. No acute abnormality is seen. N.B. : The above Results were Read Back by Lamonte Gaona MD to Dr Alfonso MD, and understanding confirmed on 12/28/2022 10:21:03 (ET). Electronically Signed: Lamonte Gaona MD at 10:22 EST , Head/Neck CTA 12/28/22 10:21 IMPRESSION: Greater than 70% narrowing at the origin of the left internal carotid artery due to calcific plaque. Less than 50% narrowing at the origin of the right internal carotid artery. N.B. : The above Results were Read Back by Lamonte Gaona MD to Radha Hamilton and understanding confirmed on 12/28/2022 11:25:30 (ET). Electronically Signed: Lamonte Gaona MD at 11:26 EST , ADDENDUM: 12/28/22 1133 IMPRESSION: Greater than 70% narrowing at the origin of the left internal carotid artery due to calcific plaque. Less than 50% narrowing at the origin of the right internal carotid artery. N.B. : The above Results were Read Back by Lamonte Gaona MD to Radha Hamilton and understanding confirmed on 12/28/2022 11:25:30 (ET). Electronically Signed: Lamonte Gaona MD at 11:26 EST , Assessment & Plan Assessment/Plan (1) Left arm weakness: (2) TIA (transient ischemic attack): PLAN: Plan Patient presented with transient left upper extremity weakness 1. Transient ischemic attack ? Patient presented with transient left upper extremity weakness which has since resolved. Admitted to a monitored bed ordered neurochecks every 4 hours. As part of patient's management ordered 2D echo as well as MRI of the brain. Patient is already on antiplatelet therapy as well as statin therapy continue 2.Recent diagnosis of colon cancer ? Patient underwent right hemicolectomy in September 2022 which was later complicated by wound infection 3. Diabetes mellitus type 2 ? Patient is on glimepiride held please on Accu-Cheks before meals and at bedtime with sliding scale coverage 4. Hypertension - Blood pressure controlled, home medications continued with dose adjustment as needed 5. Anemia - Secondary to chronic disorder monitoring H&H and transfuse if patient becomes symptomatic or hemoglobin falls below 7 6. Dyslipidemia -Patient is on statin therapy, continued at home dose 7. Previous history of stroke/TIA The patient is on antiplatelet therapy with Plavix 8. Class III obesity with BMI of 40.5 ? Weight loss advised 9. DVT prophylaxis - On enoxaparin Time spent in the patient's overall evaluation,decision-making process, review of diagnostic data, adjustment of management, discussion with other providers, nursing nursing and ancillary staff involved in patient's care documentation, 77 Minutes Advance planning; did discuss with the patient and family regarding advanced directives as well as CODE STATUS. Did explain the various scenarios involved ( FULL CODE, DNR CCA, DNR CCA with no intubation, and DNR CC and what each meant) patient elected to be DNR CCA no intubation. Order was placed. Time spent on discussion 18 minutes. Charges/Coding Visit Charges Inpatient E&M: 19000 Init Hosp L3 Procedures Hospitalists Procedures: 08776 Advncd Care Plan 30 Min
[2022-12-28 14:25] LABS: Bedside Glucose 190 mg/dL (74-106)
--- NOTE | 2022-12-28 16:25 | ECHOD_ITS ---
Reason For Study: TIA/CVA Procedure This was a 2D Doppler, Color Flow transthoracic echocardiogram. Exam performed portable in patient room. Left Ventricle Normal LV size. Left ventricular systolic function is normal. The estimated ejection fraction is 65 %. Stage 1 diastolic dysfunction. No regional wall motion abnormalities noted. Right Ventricle Normal RV size. Normal systolic function. Atria The left atrium is mildly enlarged. Normal right atrium. Mitral Valve There is moderate mitral annular calcification. Trivial eccentric mitral valve insufficiency. Tricuspid Valve Normal tricuspid valve. Mild (1+) tricuspid valve insufficiency. Pulmonary artery systolic pressure is 34 mmHg. Aortic Valve Trisinus/trileaflet aortic valve. Mild (1+) eccentric aortic valve insufficiency. Pulmonic Valve Normal pulmonic valve. Great Vessels Normal aortic root. The pulmonary artery is normal size. Normal inferior vena cava. Pericardium/Pleural No pericardial effusion. MMode/2D Measurements & Calculations LVIDd: 4.9 cm IVSd: 0.93 cm Ao root diam: 2.4 cm LVIDs: 2.9 cm LVPWd: 0.90 cm RVDd: 3.7 cm FS: 41.4 % LAV(MOD-bp): 82.0 ml LVAd ap4: 22.4 cm2 LVAd ap2: 25.8 cm2 LAV(MOD-bp) Indexed: 39.4 ml/m2 LVLd ap4: 7.2 cm LVLd ap2: 7.1 cm LAV(MOD-sp2): 90.7 ml EDV(MOD-sp4): 58.7 ml EDV(MOD-sp2): 69.5 ml LAV(MOD-sp4): 67.4 ml EDV(sp4-el): 59.7 ml EDV(sp2-el): 78.8 ml LVAs ap4: 12.3 cm2 LVAs ap2: 13.7 cm2 LVLs ap4: 6.0 cm LVLs ap2: 6.2 cm ESV(MOD-sp4): 21.2 ml ESV(MOD-sp2): 23.0 ml ESV(sp4-el): 21.3 ml ESV(sp2-el): 25.5 ml EF(MOD-sp4): 63.8 % EF(MOD-sp2): 67.0 % EF(sp4-el): 64.4 % SV(MOD-sp4): 37.5 ml SV(MOD-sp2): 46.5 ml SV(sp4-el): 38.4 ml LA dimension(2D): 4.2 cm LA A4 area: 23.5 cm2 RA A4 area: 12.8 cm2 Time Measurements MV dec time: 0.33 sec Doppler Measurements & Calculations MV E max jalen: 112.1 cm/sec Lat Peak E' Jalen: 6.4 cm/sec Med Peak E' Jalen: 6.0 cm/sec MV A max jalen: 164.5 cm/sec E/E' lat: 17.5 E/E' med: 18.7 MV E/A: 0.68 MV V2 max: 170.9 cm/sec MV dec slope: 343.1 cm/sec2 Ao V2 max: 186.6 cm/sec MV max P.7 mmHg Ao max P.9 mmHg MV V2 mean: 97.3 cm/sec Ao V2 mean: 128.8 cm/sec MV mean P.4 mmHg Ao mean P.5 mmHg MV V2 VTI: 55.2 cm Ao V2 VTI: 46.6 cm AV (velocity ratio): 0.70 AI max jalen: 371.7 cm/sec LV V1 max: 131.6 cm/sec PA V2 max: 104.3 cm/sec AI max P.3 mmHg LV V1 max P.9 mmHg AI dec slope: 263.5 cm/sec2 LV V1 mean P.5 mmHg AI P1/2t: 413.3 msec LV V1 mean: 101.3 cm/sec LV V1 VTI: 32.8 cm TR max jalen: 274.9 cm/sec TR max P.2 mmHg ECHO/Echo Complete Interpretation Summary Normal LV size. Left ventricular systolic function is normal. The estimated ejection fraction is 65 %. Stage 1 diastolic dysfunction. Pulmonary artery systolic pressure is 34 mmHg. Ordering Physician: Skyler Box Referring Physician: Jim Triplett Chi Performed By: Jana Allred
[2022-12-28] MEDS: 0.9% Normal Saline 1,000 ML 75 ML IV (17:02)
[2022-12-28 17:35] LABS: Bedside Glucose 151 mg/dL (74-106)
[2022-12-28] MEDS: Atorvastatin Calcium 40 MG Tablet PO (21:10)
[2022-12-28] MEDS: Enoxaparin 40 MG/0.4 ML Syringe SC (21:10)
[2022-12-28] MEDS: Insulin Lispro 100 UNIT/ML INSULN.PEN SC (21:11)
[2022-12-28 22:40] LABS: Bedside Glucose 236 mg/dL (74-106)
[2022-12-29] VITALS (7 sets, daily range): BP systolic 112–135; BP diastolic 61–84; PULSE 66–77; RESP 17–20; TEMP 36.5–36.9; O2SAT 95–97; BMI 41.0
[2022-12-29 05:55] LABS: Absolute Lymphocyte Count 2.53 X10^3/uL (0.83-4.51); Absolute Neutrophil Count 3.6 X10^3/uL (2.0-7.7); Basophil# 0.04 X10^3/uL; Basophil% 0.6 % (0-1); Eosinophil# 0.29 X10^3/uL; Eosinophils% 4.1 % (0-5); Hematocrit 37.2 % (37-47); Hemoglobin 11.4 g/dL (12.0-15.0); Lymphocyte # 2.53 X10^3/ul (0.83-4.51); Lymphocyte % 35.7 % (19-41); Mean Corp Hgb Conc 30.6 g/dL (32-36); Mean Corpuscular Hgb 28.5 pg (27.0-32.0); Mean Platelet Vol. 11.7 fl (6.2-12.0); Monocyte# 0.59 X10^3/uL; Monocyte% 8.3 % (0-10); NRBC Flagged by Analyzer 0 % (0-5); Neutrophil # 3.61 X10^3/uL (2.7-7.7); Platelet Count 241 K/mm3 (150-450); RBC Distribution Width CV 16.9 % (11.6-14.6); White Blood Count 7.1 K/mm3 (4.4-11.0)
[2022-12-29] MEDS: 0.9% Normal Saline 1,000 ML 75 ML IV (06:30)
[2022-12-29 06:46] LABS: Anion Gap 5 (5-15); BUN 22 mg/dL (7-18); BUN/Creat Ratio 29.6 RATIO (10-20); Calcium,Total 9.3 mg/dL (8.5-10.1); Chloride 114 mmol/L (98-107); Cholesterol 99 mg/dL (200); Creatinine, Serum 0.74 mg/dL (0.55-1.02); EST Glomerular Filtration Rate 79 mL/min (>60); Est Glom Filt Rate - Afr Amer 96 mL/min (>60); Estimated Creatinine Clearance 35.88 ml/min; Glucose 150 mg/dL (74-106); High Density Lipoprotein 58 mg/dL; Magnesium 1.6 mg/dL (1.6-2.6); Phosphorus 3.7 mg/dL (2.5-4.9); Sodium Level 143 mmol/L (136-145); Thyroid Stim Hormone (TSH) 1.07 uIU/mL (0.358-3.74); Triglycerides 124 mg/dL; Very Low Density Lipoprotein 25 mg/dL (5-40)
[2022-12-29 07:05] LABS: Bedside Glucose 147 mg/dL (74-106)
--- NOTE | 2022-12-29 07:52 | PN.HOSP_ITS ---
Reason for Visit Reason for Visit: Diagnoses Transient cerebral ischemic attack, unspecified (12/28/22) Other symptoms and signs involving the musculoskeletal system (12/28/22) Objective Data Objective Data Vital Signs: Vital Signs Temp Pulse Resp BP Pulse Ox O2 Del Method 98.0 F 72 18 130/64 H 96 Room Air 12/29/22 05:00 12/29/22 05:00 12/29/22 05:00 12/29/22 05:00 12/29/22 05:00 12/29/22 05:00 Oxygen Delivery Method Room Air Weight: 105.1 kg Body Mass Index (BMI) 41.0 Intake & Output: Intake and Output for Last 24 Hours 12/27/22 12/28/22 12/29/22 23:59 23:59 23:59 Intake Total 100 / 100 1000 / 1000 Balance 100 / 100 1000 / 1000 Lab / Micro Data Result Diagrams: 12/29/22 05:46 12/29/22 05:46 Labs: Laboratory Results - last 24 hr 12/28/22 10:10: WBC 9.2, RBC 4.29, Hgb 12.2, Hct 39.5, MCV 92.1, MCH 28.4, MCHC 30.9 L, RDW Std Deviation 57.0 H, RDW Coeff of Naren 16.8 H, Plt Count 283, MPV 12.2 H, Immature Gran % (Auto) 0.500, Neut % (Auto) 61.1, Lymph % (Auto) 28.6, [place] % (Auto) 6.9, Eos % (Auto) 2.5, Baso % (Auto) 0.4, Absolute Neuts (auto) 5.6, Absolute Lymphs (auto) 2.63, Nucleated RBC % 0 12/28/22 10:10: PT 13.7, INR 1.1, APTT 28.4 12/28/22 10:10: Sodium 144, Potassium 4.1, Chloride 112 H, Carbon Dioxide 24.0, Anion Gap 8, BUN 22 H, Creatinine 0.90, Estim Creat Clear Calc 41.62, Est GFR (MDRD) Af Amer 77, Est GFR (MDRD) Non-Af 64, BUN/Creatinine Ratio 24.5 H, Glucose 195 H, Calcium 9.7, Troponin I High Sens 10 12/28/22 10:10: POC Glucose 190 H 12/28/22 17:00: POC Glucose 151 H 12/28/22 21:06: POC Glucose 236 H 12/29/22 05:46: WBC 7.1, RBC 4.00 L, Hgb 11.4 L, Hct 37.2, MCV 93.0, MCH 28.5, MCHC 30.6 L, RDW Std Deviation 58.0 H, RDW Coeff of Naren 16.9 H, Plt Count 241, MPV 11.7, Immature Gran % (Auto) 0.300, Neut % (Auto) 51.0, Lymph % (Auto) 35.7, [place] % (Auto) 8.3, Eos % (Auto) 4.1, Baso % (Auto) 0.6, Absolute Neuts (auto) 3.6, Absolute Lymphs (auto) 2.53, Nucleated RBC % 0 12/29/22 05:46: Sodium 143, Potassium 4.0, Chloride 114 H, Carbon Dioxide 24.0, Anion Gap 5, BUN 22 H, Creatinine 0.74, Estim Creat Clear Calc 35.88, Est GFR (MDRD) Af Amer 96, Est GFR (MDRD) Non-Af 79, BUN/Creatinine Ratio 29.6 H, Glucose 150 H, Calcium 9.3, Phosphorus 3.7, Magnesium 1.6, Triglycerides 124, Cholesterol 99, LDL Cholesterol 16, VLDL Cholesterol 25, HDL Cholesterol 58, TSH 1.07 12/29/22 06:47: POC Glucose 147 H Radiography Diagnostic Testing: Radiology Impression Brain CT 12/28/22 10:07 IMPRESSION: Chronic involutional changes of the brain. No acute abnormality is seen. N.B. : The above Results were Read Back by Lamonte Gaona MD to Dr Alfonso MD, and understanding confirmed on 12/28/2022 10:21:03 (ET). Electronically Signed: Lamonte Gaona MD at 10:22 EST , ADDENDUM: 12/28/22 1029 IMPRESSION: Chronic involutional changes of the brain. No acute abnormality is seen. N.B. : The above Results were Read Back by Lamonte Gaona MD to Dr Alfonso MD, and understanding confirmed on 12/28/2022 10:21:03 (ET). Electronically Signed: Lamonte Gaona MD at 10:22 EST , Chest X-Ray 12/28/22 10:07 IMPRESSION: No acute abnormality is seen. Electronically Signed: Lamonte Gaona MD at 14:08 EST , Head/Neck CTA 12/28/22 10:21 IMPRESSION: Greater than 70% narrowing at the origin of the left internal carotid artery due to calcific plaque. Less than 50% narrowing at the origin of the right internal carotid artery. N.B. : The above Results were Read Back by Lamonte Gaona MD to Radha Hamilton and understanding confirmed on 12/28/2022 11:25:30 (ET). Electronically Signed: Lamonte Gaona MD at 11:26 EST , ADDENDUM: 12/28/22 1133 IMPRESSION: Greater than 70% narrowing at the origin of the left internal carotid artery due to calcific plaque. Less than 50% narrowing at the origin of the right internal carotid artery. N.B. : The above Results were Read Back by Lamonte Gaona MD to Radha Hamilton and understanding confirmed on 12/28/2022 11:25:30 (ET). Electronically Signed: Lamonte Gaona MD at 11:26 EST , ADDENDUM: 12/28/22 1533 IMPRESSION: Greater than 70% narrowing at the origin of the left internal carotid artery due to calcific plaque. Less than 50% narrowing at the origin of the right internal carotid artery. N.B. : The above Results were Read Back by Lamonte Gaona MD to Radha Hamilton and understanding confirmed on 12/28/2022 11:25:30 (ET). Electronically Signed: Lamonte Gaona MD at 11:26 EST , Brain MRI 12/28/22 11:54 IMPRESSION: 1. No MRI evidence of acute or subacute ischemic infarct, intracranial mass or acute intracranial abnormality. 2. Chronic white matter ischemic changes in both cerebral hemispheres. 3. Mucosal edema/thickening in the ethmoid sinuses, left sphenoid sinus and the contracted left maxillary sinus. Electronically Signed: Arpan Alvarez MD at 15:30 EST , Rhythm Strip Rhythm Strip: Sinus Rhythm Rate: 83 Ectopy: None Physical Exam Narrative GENERAL: cooperative HEENT: Atraumatic; normocephalic EYES; Anicteric, Normal Conjunctiva NECK; supple, normal thyroid, RESPIRATORY: Diminished to auscultation CARDIOVASCULAR: Regular S1 S2, GI: soft, normoactive bowel sounds, : No Renal angle tenderness; EXTREMITIES: No edema, no clubbing, MUSCULOSKELETAL: no muscle wasting NEURO: Awake; no lateralizing signs. SKIN: No Rash PSYCH; Flat affect Assessment & Plan Assessment/Plan (1) Left arm weakness: (2) TIA (transient ischemic attack): PLAN: Plan Patient presented with transient left upper extremity weakness 1. Transient ischemic attack ? Patient presented with transient left upper extremity weakness which has since resolved. Admitted to a monitored bed ordered neurochecks every 4 hours. As part of patient's management ordered 2D echo as well as MRI of the brain. Patient is already on antiplatelet therapy as well as statin therapy continue ? MRI did not show any acute CVA. CT angio result as below. Patient to be discharged on dual antiplatelet therapy ? 2. Carotid artery disease ? CT angio of the head and neck did not show Greater than 70% narrowing at the origin of the left internal carotid artery due to calcific plaque. Less than 50% narrowing at the origin of the right internal carotid artery. Patient is on dual antiplatelet therapy plans for patient to be referred to vascular surgeon Dr. Tapia as outpatient for subsequent eval 3 .Recent diagnosis of colon cancer ? Patient underwent right hemicolectomy in September 2022 which was later complicated by wound infection 4. Diabetes mellitus type 2 ? Patient is on glimepiride held please on Accu-Cheks before meals and at bedtime with sliding scale coverage 5. Hypertension - Blood pressure controlled, home medications continued with dose adjustment as needed 6. Dyslipidemia -Patient is on statin therapy, continued at home dose 7. Previous history of stroke/TIA The patient is on antiplatelet therapy with Plavix 8. Class III obesity with BMI of 40.5 ? Weight loss advised 9. Anemia - Secondary to chronic disorder monitoring H&H and transfuse if patient becomes symptomatic or hemoglobin falls below 7 10. DVT prophylaxis - On enoxaparin Time spent in the patient's overall evaluation,decision-making process, review of diagnostic data, adjustment of management, discussion with other providers, nursing nursing and ancillary staff involved in patient's care documentation, 57 Minutes Charges/Coding Visit Charges Inpatient E&M: 70312 [facility] L3
[2022-12-29] MEDS: Clopidogrel Bisulfate 75 MG Tablet PO (09:01)
[2022-12-29] MEDS: Aspirin 81 MG TAB.CHEW PO (09:01)
[2022-12-29] MEDS: Enoxaparin 40 MG/0.4 ML Syringe SC (09:03)
[2022-12-29] MEDS: Cholestyramine/Sucrose 4 GM/PACKET PO (11:04)
[2022-12-29 11:26] LABS: Bedside Glucose 279 mg/dL (74-106)
--- NOTE | 2022-12-29 12:34 | CASEMGMT ---
SW was informed patient's daughter would like to talk with SW privately. SW met with patient's daughter Carissa. SW introduced self and role at [facility]. Carissa explained situation with patient. Carissa was tearful throughout conversation. Carissa expressed difficulty with patient having memory and reasoning issues, but patient not recognizing this. Patient tells everyone she is fine and that her daughter takes care of everything. Carissa said it is beginning to be too much. 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 Carissa loves her mom, but she shouldn't be left alone. Carissa will leave patient alone for maybe an hour, but then she goes and checks on her. Carissa said her son is a senior in High School and plays Lacrosse. She cannot leave her mom long enough to go watch any of his games. Carissa said they did talk with [facility] and the outpatient case manager was out on Tuesday. Patient gets Mom's Meals. Carissa said there are no aides available in the area. MAYDA asked about [facility]. SW told Carissa to check with patient's outpatient case manager on setting her up. SW explained this would help with socialization, therapy, meals, and activities. Carissa also said the pillowcase folder told her patient needs a full geriatric assessment. Patient sees Dr Triplett. SW suggested she talk with Dr Triplett about a referral for a geriatric assessment. Patient was active with [facility], but therapy stopped seeing her. SW asked if she would like this to be re-started and she said that would be helpful. MAYDA also said SW can add a social media director to see if maybe she can assist Carissa with having this difficult conversation with patient. Carissa would like patient to go to assisted living. Patient is not 100% on board, but she told Carissa she would go if Carissa told he she needed to. Patient is on the waiting list at [facility] with possible opening in February. [facility] would probably have an opening in January. However, [facility] called her and said they have an opening and Carissa scheduled an appt to go view the suite. Carissa plans on taking patient with her. MAYDA told her that would be a great idea. Carissa was appreciative of SW listening. Plan: [facility], PT, OT, ST, and Roll [employer]. Carissa will talk with Dr Triplett about a possible referral for a geriatric assessment. Carissa and patient will go view the suite at [facility] tomorrow. Carissa will talk with [facility] outpatient case manager about [facility] for patient. Swathi Velazquez THREAD SINGERNorma QUINONEZ
[2022-12-29] MEDS: Insulin Lispro 100 UNIT/ML INSULN.PEN SC (12:44)
--- NOTE | 2022-12-29 12:48 | CASEMGMT ---
MAYDA called Imani at [facility] and added PT,OT,ST, and Social Work. Plan: d/c home with [facility], PT, OT, ST, and Social Work. Swathi QUINONEZ
--- NOTE | 2022-12-29 13:44 | PCM.DC.SUM ---
Providers Date of Admission: 12/28/22 Date of Discharge: 12/29/22 Primary Care Physician: Dr. Jim Triplett MD Reason For Visit: TIA Diagnosis Discharge Diagnosis (1) Left arm weakness: Status: Acute Code(s): R29.898 - Other symptoms and signs involving the musculoskeletal system (2) TIA (transient ischemic attack): Status: Acute Code(s): G45.9 - Transient cerebral ischemic attack, unspecified Plan Patient presented with transient left upper extremity weakness 1. Transient ischemic attack ? Patient presented with transient left upper extremity weakness which has since resolved. Admitted to a monitored bed ordered neurochecks every 4 hours. As part of patient's management ordered 2D echo as well as MRI of the brain. Patient is already on antiplatelet therapy as well as statin therapy continue ? MRI did not show any acute CVA. CT angio result as below. Patient to be discharged on dual antiplatelet therapy ? 2. Carotid artery disease ? CT angio of the head and neck did not show Greater than 70% narrowing at the origin of the left internal carotid artery due to calcific plaque. Less than 50% narrowing at the origin of the right internal carotid artery. Patient is on dual antiplatelet therapy plans for patient to be referred to vascular surgeon Dr. Tapia as outpatient for subsequent eval 3 .Recent diagnosis of colon cancer ? Patient underwent right hemicolectomy in September 2022 which was later complicated by wound infection 4. Diabetes mellitus type 2 ? Patient is on glimepiride held please on Accu-Cheks before meals and at bedtime with sliding scale coverage 5. Hypertension - Blood pressure controlled, home medications continued with dose adjustment as needed 6. Dyslipidemia -Patient is on statin therapy, continued at home dose 7. Previous history of stroke/TIA The patient is on antiplatelet therapy with Plavix 8. Class III obesity with BMI of 40.5 ? Weight loss advised 9. Anemia - Secondary to chronic disorder monitoring H&H and transfuse if patient becomes symptomatic or hemoglobin falls below 7 10. DVT prophylaxis - On enoxaparin Time spent in the patient's overall evaluation,decision-making process, review of diagnostic data, adjustment of management, discussion with other providers, nursing nursing and ancillary staff involved in patient's care documentation, 37 Minutes Medications at Discharge Home Medications atorvastatin 40 mg tablet 40 mg PO QHS CHOLESTEROL 09/09/22 clopidogrel 75 mg tablet 75 mg PO DAILY BLOOD THINNER 09/09/22 glimepiride 2 mg tablet 2 mg PO DAILY DIABETES 09/15/22 cholestyramine (with sugar) 4 gram powder for susp in a packet 1 ea PO DAILY 12/28/22 aspirin 81 mg chewable tablet 81 mg PO BREAKFAST #90 tabs 12/29/22 Hospital Course Summary of Care Provided Minutes Spent on Discharge: 37 Physical Exam Narrative GENERAL: cooperative HEENT: Atraumatic; normocephalic EYES; Anicteric, Normal Conjunctiva NECK; supple, normal thyroid, RESPIRATORY: Diminished to auscultation CARDIOVASCULAR: Regular S1 S2, GI: soft, normoactive bowel sounds, : No Renal angle tenderness; EXTREMITIES: No edema, no clubbing, MUSCULOSKELETAL: no muscle wasting NEURO: Awake; no lateralizing signs. SKIN: No Rash PSYCH; Flat affect Weight / BMI Weight Weight: 105.1 kg Body Mass Index (BMI) 41.0 ABG / Lab / Microbiology Data Result Diagrams: 12/29/22 05:46 12/29/22 05:46 Laboratory: Laboratory Results - last 24 hr 12/28/22 10:10: POC Glucose 190 H 12/28/22 17:00: POC Glucose 151 H 12/28/22 21:06: POC Glucose 236 H 12/29/22 05:46: WBC 7.1, RBC 4.00 L, Hgb 11.4 L, Hct 37.2, MCV 93.0, MCH 28.5, MCHC 30.6 L, RDW Std Deviation 58.0 H, RDW Coeff of Naren 16.9 H, Plt Count 241, MPV 11.7, Immature Gran % (Auto) 0.300, Neut % (Auto) 51.0, Lymph % (Auto) 35.7, [place] % (Auto) 8.3, Eos % (Auto) 4.1, Baso % (Auto) 0.6, Absolute Neuts (auto) 3.6, Absolute Lymphs (auto) 2.53, Nucleated RBC % 0 12/29/22 05:46: Sodium 143, Potassium 4.0, Chloride 114 H, Carbon Dioxide 24.0, Anion Gap 5, BUN 22 H, Creatinine 0.74, Estim Creat Clear Calc 35.88, Est GFR (MDRD) Af Amer 96, Est GFR (MDRD) Non-Af 79, BUN/Creatinine Ratio 29.6 H, Glucose 150 H, Calcium 9.3, Phosphorus 3.7, Magnesium 1.6, Triglycerides 124, Cholesterol 99, LDL Cholesterol 16, VLDL Cholesterol 25, HDL Cholesterol 58, TSH 1.07 12/29/22 06:47: POC Glucose 147 H 12/29/22 11:01: POC Glucose 279 H Radiography Diagnostic Testing: Radiology Impression Chest X-Ray 12/28/22 10:07 IMPRESSION: No acute abnormality is seen. Electronically Signed: Lamonte Gaona MD at 14:08 EST , Head/Neck CTA 12/28/22 10:21 IMPRESSION: Greater than 70% narrowing at the origin of the left internal carotid artery due to calcific plaque. Less than 50% narrowing at the origin of the right internal carotid artery. N.B. : The above Results were Read Back by Lamonte Gaona MD to Radha Hamilton and understanding confirmed on 12/28/2022 11:25:30 (ET). Electronically Signed: Lamonte Gaona MD at 11:26 EST , ADDENDUM: 12/28/22 1133 IMPRESSION: Greater than 70% narrowing at the origin of the left internal carotid artery due to calcific plaque. Less than 50% narrowing at the origin of the right internal carotid artery. N.B. : The above Results were Read Back by Lamonte Gaona MD to Radha Hamilton and understanding confirmed on 12/28/2022 11:25:30 (ET). Electronically Signed: Lamonte Gaona MD at 11:26 EST , ADDENDUM: 12/28/22 1533 IMPRESSION: Greater than 70% narrowing at the origin of the left internal carotid artery due to calcific plaque. Less than 50% narrowing at the origin of the right internal carotid artery. N.B. : The above Results were Read Back by Lamonte Gaona MD to Radha Hamilton and understanding confirmed on 12/28/2022 11:25:30 (ET). Electronically Signed: Lamonte Gaona MD at 11:26 EST , Brain MRI 12/28/22 11:54 IMPRESSION: 1. No MRI evidence of acute or subacute ischemic infarct, intracranial mass or acute intracranial abnormality. 2. Chronic white matter ischemic changes in both cerebral hemispheres. 3. Mucosal edema/thickening in the ethmoid sinuses, left sphenoid sinus and the contracted left maxillary sinus. Electronically Signed: Arpan Alvarez MD at 15:30 EST , Echocardiogram 12/28/22 16:25 Interpretation Summary Normal LV size. Left ventricular systolic function is normal. The estimated ejection fraction is 65 %. Stage 1 diastolic dysfunction. Pulmonary artery systolic pressure is 34 mmHg. Ordering Physician: Skyler Box Referring Physician: Jim Triplett Chi Performed By: Jana Allred D/C Instructions Discharge Diet: 1800 Calorie Control Diet Discharge Activity: Return to Normal Activity Call your doctor if you observe: Fever of 101 or Higher, Shortness of breath, Fainting spells and Chest pain Meaningful Use Info Meaningful Use Diagnoses (Choose all that apply): None applicable Discharge Plan Admission Admit Date/Time: 12/28/22 11:48 Attending Provider: Skyler Box Primary Care Provider: Jim Triplett Chi Discharge Orders/Prescriptions Prescriptions: New aspirin 81 mg Tablet,Chewable 81 mg PO BREAKFAST Qty: 90 0RF Continued atorvastatin 40 MG tablet 40 mg PO QHS clopidogrel 75 MG tablet 75 mg PO DAILY glimepiride 2 mg Tablet 2 mg PO DAILY cholestyramine (with sugar) 4 gram powder in packet 1 ea PO DAILY Referrals / Follow Up: Jim Triplett Chi, MD [Primary Care Provider] - Within 1 Week Hudson Tapia MD [Med Staff - Active Staff] - Within 2 Weeks (Regarding carotid artery stenosis) Disposition Disposition (needs filled in before D/C Order can be placed): Home, Self Care Charges/Coding Visit Charges Inpatient E&M: 81413 Disch Hosp >30min
--- NOTE | 2022-12-29 14:33 | CASEMGMT ---
MAYDA notified Imani with [facility] that patient will be discharged today. Swathi QUINONEZ
--- NOTE | 2022-12-29 14:51 | PHA.DC.MC ---
Pharmacy Service has performed discharge medication reconciliation and counseling for this patient. 1. ASPIRIN 81MG PO BREAKFAST The patient's discharge medication list was reviewed for discrepancies and discrepancies were resolved. Home Medications atorvastatin 40 mg tablet 40 mg PO QHS CHOLESTEROL 09/09/22 clopidogrel 75 mg tablet 75 mg PO DAILY anti platelet 09/09/22 glimepiride 2 mg tablet 2 mg PO DAILY DIABETES 09/15/22 cholestyramine (with sugar) 4 gram powder for susp in a packet 1 ea PO DAILY supplement 12/28/22 aspirin 81 mg chewable tablet 81 mg PO BREAKFAST #90 tabs 12/29/22 The patient was counseled on the following discharge medications and changes in medications for homegoing were reviewed. The Reason for Use, instructions for use, and potential side effects were reviewed for all new medications. The patient's questions regarding all of their medications were answered. The patient was able to verbally demonstrate an understanding of their discharge medications.
--- NOTE | 2022-12-29 16:32 | CASEMGMT ---
JOSE LUIS DORSEY phoned pt's daughter Carissa to review BURTON form d/t pt's cognitive/memory issues. BURTON form discussed and daughter's questions answered. Original form placed in chart and copy placed in pt's discharge folder. Ludwig Wyman RN CM
--- NOTE | 2022-12-29 16:35 | CHAPLAIN ---
Type of Pastoral Visit _x__ Initial Visit ___ Follow-up Visit ___ On-call Visit ___ General Patient Visit ___ Spiritual Assessment ___ Family Conference ___ Bereavement ___ Rapid Response ___ Code Blue ___ Other (describe below) Pastoral Care Referral From _x__ Patient ___ Family ___ Nurse ___ Physician ___ Technologies Division Chair ___ License And Permit Specialist ___ Other (describe below) Sacrament/Intervention _x__ Active listening ___ Anointing ___ Samaritan ___ Bereavement ___ Communion ___ [place] exploration ___ ___ Life review _x__ Prayer ___ Reconciliation ___ Sacrament of Sick _x__ Supportive presence ___ Wedding ___ Other (describe below) Pastoral Comments patient remembered from previous admission; pt is pleasant and hopeful about going home; pt has had a couple of good months at home by her report; pt does not have concerns at this time but got emotional and tearful when talking about her health and possible ; pt states I have as many people up there waiting for me as I do down here; pt welcomes prayer and support
== END 2022-12-29 13:50 | disposition home health service (06) ==
LOC: ED 11:55 → PCU 14:11
PROVIDERS: Admitting Provider Internal Medicine; Emergency Provider Emergency Medicine; PCP Family Medicine Geriatric Medicine; Visit Provider Internal Medicine
DX: G45.9 Transient cerebral ischemic attack, unspecified (principal); C18.9 Malignant neoplasm of colon, unspecified; Z68.41 Body mass index [BMI] 40.0-44.9, adult; E11.9 Type 2 diabetes mellitus without complications; E78.5 Hyperlipidemia, unspecified; R20.2 Paresthesia of skin; R47.81 Slurred speech; R53.1 Weakness; Z79.84 Long term (current) use of oral hypoglycemic drugs; I10 Essential (primary) hypertension; I69.328 Other speech and language deficits following cerebral infarction; Z79.02 Long term (current) use of antithrombotics/antiplatelets; Z79.899 Other long term (current) drug therapy; I69.398 Other sequelae of cerebral infarction; R29.702 NIHSS score 2; D63.8 Anemia in other chronic diseases classified elsewhere
CPT/HCPCS: 36415; 70450; 70496; 70498; 70551; 71045; 80048; 80061; 82962; 83735; 84100; 84443; 84484; 85025; 85610; 85730; 93005; 93306; 96360; 96361; 96372; 97162; 97166; 97802; 99221; 99284; J7030; Q9967; A4216; G0378

== ENCOUNTER → 2023-01-04 | Outpatient (CLI) | payer MEDICARE, MEDICAID, SELFPAY ==
[2023-01-04 17:55] LABS: Absolute Lymphocyte Count 2.69 X10^3/uL (0.83-4.51); Absolute Neutrophil Count 6.5 X10^3/uL (2.0-7.7); Basophil# 0.04 X10^3/uL; Basophil% 0.4 % (0-1); Eosinophil# 0.29 X10^3/uL; Eosinophils% 2.8 % (0-5); Hematocrit 39.2 % (37-47); Lymphocyte # 2.69 X10^3/ul (0.83-4.51); Lymphocyte % 26.2 % (19-41); Mean Corp Hgb Conc 30.6 g/dL (32-36); Mean Corpuscular Hgb 28.4 pg (27.0-32.0); Mean Corpuscular Volume 92.9 fL (81-99); Mean Platelet Vol. 12.3 fl (6.2-12.0); Monocyte# 0.68 X10^3/uL; Monocyte% 6.6 % (0-10); NRBC Flagged by Analyzer 0 % (0-5); Neutrophil # 6.53 X10^3/uL (2.7-7.7); Neutrophil % 63.6 % (47-70); Platelet Count 297 K/mm3 (150-450); RBC Distribution Width CV 16.1 % (11.6-14.6); RBC Distribution Width SD 54.2 fl (35.1-43.9); Red Blood Count 4.22 M/mm3 (4.2-5.4); White Blood Count 10.3 K/mm3 (4.4-11.0)
== END | disposition home or self-care (01) ==
LOC: POLAB3 15:22
PROVIDERS: PCP Family Medicine Geriatric Medicine; Visit Provider Family Medicine Geriatric Medicine
DX: D64.9 Anemia, unspecified (principal)
CPT/HCPCS: 36415; 85025

== ENCOUNTER → 2023-02-01 | Outpatient (CLI) | payer MEDICARE, MEDICAID, SELFPAY ==
--- NOTE | 2023-02-01 10:56 | CDU_ITS ---
Reason For Study: Carotid artery stenosis Rt. Velocities/BP Lt. Velocities/BP Prox CCA 68.3/6 cm/sec. Prox CCA 77.1/7.8 cm/sec. Mid CCA 74/8.8 cm/sec. Mid CCA 80.8/10.8 cm/sec. Dist CCA 80.6/11.3 cm/sec. Dist CCA 87.7/11 cm/sec. Prox ICA 141.2/18.2 cm/sec. Prox ICA 249.9/43 cm/sec. Mid ICA 95.5/20.6 cm/sec. Mid ICA 162.6/23.6 cm/sec. Dist ICA 95.5/18.8 cm/sec. Dist ICA 94.7/20.4 cm/sec. Rt. ICA/CCA = 1.91. Lt. ICA/CCA = 3.09. Prox ECA 122.9 cm/sec. Prox ECA 114.8 cm/sec. Rt. Vert. 62.9/13.2 cm/sec. Lt. Vert. 77.3/11.5 cm/sec. Right Extracranial There is homogeneous, smooth atherosclerotic plaque noted in the right common carotid artery. There is heterogeneous, irregular atherosclerotic plaque noted in the right internal carotid artery. There is heterogeneous, irregular atherosclerotic plaque noted in the right external carotid artery. Antegrade flow is noted in the right vertebral artery. Left Extracranial There is homogeneous, smooth atherosclerotic plaque noted in the left common carotid artery. There is heterogeneous, irregular atherosclerotic plaque noted in the left internal carotid artery. There is heterogeneous, irregular atherosclerotic plaque noted in the left external carotid artery. Antegrade flow is noted in the left vertebral artery. Procedure Carotid Duplex 80620. This is a Carotid Duplex examination using B-mode, color flow and specral Doppler. The study was technically difficult. Exam performed in department. VL/Carotid Duplex Ultrasound Interpretation Summary Moderate (50-69%) stenosis right extracranial internal carotid. Severe (>70%) stenosis left extracranial internal carotid. Patent and antegrade vertebrals bilaterally. Ordering Physician: Kacy Rawls Referring Physician: Jim Triplett Chi Performed By: Taryn Wall RVT
== END | disposition home or self-care (01) ==
LOC: CVS 10:56
PROVIDERS: PCP Family Medicine Geriatric Medicine; Referring Provider Physician Assistant; Visit Provider Physician Assistant
DX: I65.23 Occlusion and stenosis of bilateral carotid arteries (principal)
CPT/HCPCS: 93880

== ENCOUNTER → 2023-03-07 | Outpatient (CLI) | payer MEDICARE, MEDICAID, SELFPAY ==
[2023-03-07 17:50] LABS: Absolute Lymphocyte Count 2.48 X10^3/uL (0.83-4.51); Absolute Neutrophil Count 6.1 X10^3/uL (2.0-7.7); Basophil# 0.04 X10^3/uL; Basophil% 0.4 % (0-1); Eosinophil# 0.27 X10^3/uL; Eosinophils% 2.8 % (0-5); Hematocrit 38.2 % (37-47); Hemoglobin 11.9 g/dL (12.0-15.0); Lymphocyte # 2.48 X10^3/ul (0.83-4.51); Lymphocyte % 25.8 % (19-41); Mean Corp Hgb Conc 31.2 g/dL (32-36); Mean Corpuscular Hgb 29.8 pg (27.0-32.0); Mean Corpuscular Volume 95.5 fL (81-99); Mean Platelet Vol. 12.2 fl (6.2-12.0); Monocyte# 0.73 X10^3/uL; Monocyte% 7.6 % (0-10); NRBC Flagged by Analyzer 0 % (0-5); Neutrophil # 6.08 X10^3/uL (2.7-7.7); Neutrophil % 63.1 % (47-70); Platelet Count 273 K/mm3 (150-450); RBC Distribution Width CV 14.7 % (11.6-14.6); RBC Distribution Width SD 51.5 fl (35.1-43.9); White Blood Count 9.6 K/mm3 (4.4-11.0)
[2023-03-07 18:04] LABS: Vitamin D,25 Hydroxy 23.2 ng/mL
[2023-03-07 18:28] LABS: ALB/GLOB Ratio 0.7 RATIO (0.9-2.4); AST(SGOT) 22 U/L (15-37); Alanine Aminotransfer ALT/SGPT 23 U/L (13-56); Alkaline Phosphatase 88 U/L (45-117); Anion Gap 5 (5-15); BUN 26 mg/dL (7-18); BUN/Creat Ratio 27.7 RATIO (10-20); Calcium,Total 9.2 mg/dL (8.5-10.1); Chloride 107 mmol/L (98-107); Creatinine, Serum 0.94 mg/dL (0.55-1.02); EST Glomerular Filtration Rate 61 mL/min (>60); Est Glom Filt Rate - Afr Amer 73 mL/min (>60); Globulin 4.2 g/dL (2.2-4.2); Glucose 209 mg/dL (74-106); Potassium 4.7 mmol/L (3.5-5.1); Protein, Total 7.2 g/dL (6.4-8.2); Sodium Level 137 mmol/L (136-145); Thyroid Stim Hormone (TSH) 0.91 uIU/mL (0.358-3.74)
== END | disposition home or self-care (01) ==
PROVIDERS: PCP Family Medicine Geriatric Medicine; Visit Provider Family Medicine Geriatric Medicine
DX: E55.9 Vitamin D deficiency, unspecified (principal); E11.65 Type 2 diabetes mellitus with hyperglycemia; R53.83 Other fatigue
CPT/HCPCS: 36415; 80053; 82306; 84443; 85025

== ENCOUNTER → 2023-04-05 | Outpatient (CLI) | payer MEDICARE, MEDICAID, SELFPAY ==
--- NOTE | 2023-04-05 15:10 | RAD_ITS ---
INDICATION: PAIN EXAMINATION/TECHNIQUE: X-RAY - XR Sacrum/Coccyx Min 2 Views COMPARISON: None. FINDINGS: Bilateral hip arthroplasties. Moderate osteitis symphysis. SACRUM/COCCYX: No displaced fracture, destructive or sclerotic lesions. Note that overlapping bowel shadows may however obscure fine detail in the frontal view. SACRO-ILIAC JOINTS: Moderate bilateral sacroiliac subchondral sclerosis and osteophyte formation. SOFT TISSUES: No soft tissue swelling or gas. RAD/Sacrum-Coccyx min 2 Views IMPRESSION: Bilateral sacroiliitis. Bilateral hip arthroplasty. Osteitis symphysis. Electronically Signed: Babatunde Gillette MD, SHENA at 19:41 EDT ,
== END | disposition home or self-care (01) ==
LOC: RAD 15:05
PROVIDERS: PCP Family Medicine Geriatric Medicine; Referring Provider Family Medicine Geriatric Medicine; Visit Provider Family Medicine Geriatric Medicine
DX: M53.3 Sacrococcygeal disorders, not elsewhere classified (principal)
CPT/HCPCS: 72220

== ENCOUNTER → 2023-09-05 | Outpatient (REF) | payer MEDICARE, MEDICAID, SELFPAY ==
[2023-09-06 08:52] LABS: Mucous, Urine 0 SEEN /hpf (<or=2+); Red Blood Cells-Urine 0 SEEN /hpf (0-5); Squamous Epithelial Cells - UA 0 SEEN /hpf (5-10)
[2023-09-06 09:02] LABS: Color, Urine Yellow (Yellow); Glucose, Dipstick 1000 mg/dl (Normal); Ketone-Dipstick Negative (Negative); Leukocyte Esterase-Dipstick 100 /ul (Negative); Nitrite-Dipstick Positive (Negative); Occult Blood-Urine 10 /ul (Negative); Protein-Dipstick 30 mg/dl (Negative); Urine Bilirubin Dipstick Negative (Negative); Urine Clarity Sl. Cloudy (Clear); Urine Urobilinogen Normal (Normal)
[2023-09-06 09:41] LABS: Bacteria 2+ /hpf (None Seen); White Blood Cells 10-25 SEEN /hpf (0-5)
== END ==
LOC: OLS.SWAL 18:00
PROVIDERS: PCP Family Medicine Geriatric Medicine; Visit Provider Family Medicine Geriatric Medicine
DX: N39.0 Urinary tract infection, site not specified (principal)
CPT/HCPCS: 81001; 87077; 87086; 87088; 87186

== ENCOUNTER → 2023-09-13 | Outpatient (CLI) | payer MEDICARE, MEDICAID, SELFPAY ==
[2023-09-13 12:39] LABS: Absolute Lymphocyte Count 2.03 X10^3/uL (0.83-4.51); Basophil# 0.03 X10^3/uL; Basophil% 0.3 % (0-1); Eosinophil# 0.13 X10^3/uL; Eosinophils% 1.5 % (0-5); Hemoglobin 12.3 g/dL (12.0-15.0); Lymphocyte # 2.03 X10^3/ul (0.83-4.51); Lymphocyte % 22.8 % (19-41); Mean Corp Hgb Conc 30.8 g/dL (32-36); Mean Corpuscular Hgb 29.2 pg (27.0-32.0); Mean Platelet Vol. 12.7 fl (6.2-12.0); Monocyte# 0.68 X10^3/uL; Monocyte% 7.6 % (0-10); NRBC Flagged by Analyzer 0 % (0-5); Neutrophil # 5.99 X10^3/uL (2.7-7.7); Neutrophil % 67.5 % (47-70); Platelet Count 239 K/mm3 (150-450); RBC Distribution Width CV 14.6 % (11.6-14.6); RBC Distribution Width SD 50.6 fl (35.1-43.9); Red Blood Count 4.21 M/mm3 (4.2-5.4); White Blood Count 8.9 K/mm3 (4.4-11.0)
[2023-09-13 13:17] LABS: ALB/GLOB Ratio 0.6 RATIO (0.9-2.4); AST(SGOT) 21 U/L (15-37); Alanine Aminotransfer ALT/SGPT 28 U/L (13-56); Albumin, Serum 2.7 g/dL (3.2-5.0); Alkaline Phosphatase 90 U/L (45-117); Anion Gap 6 (5-15); BUN 27 mg/dL (7-18); BUN/Creat Ratio 20.9 RATIO (10-20); Calcium,Total 9.3 mg/dL (8.5-10.1); Chloride 107 mmol/L (98-107); Cholesterol 92 mg/dL (200); Creatinine, Serum 1.29 mg/dL (0.55-1.02); EST Glomerular Filtration Rate 42 mL/min (>60); Est Glom Filt Rate - Afr Amer 51 mL/min (>60); Globulin 4.4 g/dL (2.2-4.2); Glucose 380 mg/dL (74-106); High Density Lipoprotein 61 mg/dL; Potassium 4.9 mmol/L (3.5-5.1); Protein, Total 7.1 g/dL (6.4-8.2); Sodium Level 138 mmol/L (136-145); Thyroid Stim Hormone (TSH) 1.49 uIU/mL (0.358-3.74); Triglycerides 155 mg/dL; Very Low Density Lipoprotein 31 mg/dL (5-40)
[2023-09-13 13:38] LABS: Hemoglobin A1c 11.2 % (3.8-5.6)
== END | disposition home or self-care (01) ==
LOC: POLAB3 10:08
PROVIDERS: PCP Family Medicine Geriatric Medicine; Visit Provider Family Medicine Geriatric Medicine
DX: E11.65 Type 2 diabetes mellitus with hyperglycemia (principal); R53.83 Other fatigue; E78.5 Hyperlipidemia, unspecified; E55.9 Vitamin D deficiency, unspecified
CPT/HCPCS: 36415; 80053; 80061; 82306; 83036; 84443; 85025

== ENCOUNTER → 2024-03-14 | Outpatient (CLI) | payer MEDICARE, MEDICAID, SELFPAY ==
[2024-03-14 10:56] LABS: Absolute Lymphocyte Count 2.33 X10^3/uL (0.83-4.51); Absolute Neutrophil Count 5.9 X10^3/uL (2.0-7.7); Basophil# 0.03 X10^3/uL; Basophil% 0.3 % (0-1); Eosinophil# 0.19 X10^3/uL; Eosinophils% 2.1 % (0-5); Hematocrit 37.7 % (37-47); Hemoglobin 11.8 g/dL (12.0-15.0); Lymphocyte # 2.33 X10^3/ul (0.83-4.51); Lymphocyte % 25.3 % (19-41); Mean Corp Hgb Conc 31.3 g/dL (32-36); Mean Corpuscular Hgb 29.6 pg (27.0-32.0); Mean Corpuscular Volume 94.7 fL (81-99); Mean Platelet Vol. 12.8 fl (6.2-12.0); Monocyte# 0.72 X10^3/uL; Monocyte% 7.8 % (0-10); NRBC Flagged by Analyzer 0 % (0-5); Neutrophil # 5.92 X10^3/uL (2.7-7.7); Neutrophil % 64.2 % (47-70); Platelet Count 230 K/mm3 (150-450); RBC Distribution Width CV 13.7 % (11.6-14.6); RBC Distribution Width SD 47.7 fl (35.1-43.9); Red Blood Count 3.98 M/mm3 (4.2-5.4); White Blood Count 9.2 K/mm3 (4.4-11.0)
[2024-03-14 11:13] LABS: Hemoglobin A1c 13.5 % (3.8-5.6)
[2024-03-14 11:27] LABS: ALB/GLOB Ratio 0.7 RATIO (0.9-2.4); AST(SGOT) 20 U/L (15-37); Alanine Aminotransfer ALT/SGPT 18 U/L (13-56); Albumin, Serum 2.8 g/dL (3.2-5.0); Alkaline Phosphatase 91 U/L (45-117); Anion Gap 8 (5-15); BUN 23 mg/dL (7-18); BUN/Creat Ratio 14.5 RATIO (10-20); Calcium,Total 9.2 mg/dL (8.5-10.1); Chloride 103 mmol/L (98-107); Cholesterol 79 mg/dL (200); Creatinine, Serum 1.59 mg/dL (0.55-1.02); EST Glomerular Filtration Rate 33 mL/min (>60); Est Glom Filt Rate - Afr Amer 40 mL/min (>60); Glucose 534 mg/dL (74-106); High Density Lipoprotein 56 mg/dL; Potassium 4.3 mmol/L (3.5-5.1); Protein, Total 6.8 g/dL (6.4-8.2); Sodium Level 136 mmol/L (136-145); Thyroid Stim Hormone (TSH) 1.06 uIU/mL (0.358-3.74); Triglycerides 128 mg/dL; Very Low Density Lipoprotein 26 mg/dL (5-40)
[2024-03-14 12:10] LABS: Vitamin D,25 Hydroxy 24.7 ng/mL
== END | disposition home or self-care (01) ==
LOC: POLAB3 09:49
PROVIDERS: PCP Family Medicine Geriatric Medicine; Visit Provider Family Medicine Geriatric Medicine
DX: E78.5 Hyperlipidemia, unspecified (principal); E11.65 Type 2 diabetes mellitus with hyperglycemia; R53.83 Other fatigue; E55.9 Vitamin D deficiency, unspecified
CPT/HCPCS: 36415; 80053; 80061; 82306; 83036; 84443; 85025

== ENCOUNTER → 2024-05-29 | Outpatient (CLI) | payer MEDICARE, MEDICAID, SELFPAY ==
--- NOTE | 2024-05-29 15:37 | CT_ITS ---
STUDY: CT ABDOMEN AND PELVIS WITH CONTRAST REASON FOR EXAM: Female, 83 years old. ABDOMINAL PAIN RADIATION DOSAGE (If Supplied By Facility): CTDIvol = ( 20.78 ) mGy, DLP = ( 1744.38 ) mGycm TECHNIQUE: Transaxial images were obtained from the dome of the diaphragm to the symphysis pubis with oral contrast. IV 75mL Isovue-370 was administered. Sagittal and coronal images were reconstructed. Individualized dose optimization techniques were used for this CT. COMPARISON: September 22, 2022 FINDINGS: There are scattered small pulmonary calcifications consistent with old granulomatous disease. There are mitral annular calcifications. Normal liver. There is a solitary gallstone. Normal spleen. Normal pancreas. Normal bilateral adrenal glands. There is 3.8 cm cyst of the right kidney. Normal left kidney. Normal visualized stomach. There is a large anterior abdominal wall hernia containing small intestine and colon. There are multiple colonic diverticula consistent with diverticulosis. There is non-visualization of the appendix. There is atherosclerotic calcification of the abdominal aorta, without a demonstrated aneurysm. Normal inferior vena cava. Normal retroperitoneum. Normal urinary bladder. Normal visualized uterus. There is no free fluid in the abdomen or pelvis. There is mild degenerative change of the spine. There are bilateral hip replacements. CT/Abdomen/Pelvis WITH Contrast IMPRESSION: Colonic diverticulosis. Anterior abdominal hernia containing small intestine and colon. No obstruction. Gallstone. No biliary dilatation. Electronically Signed: Scott Nowak MD at 19:30 EDT ,
--- NOTE | 2024-05-29 16:50 | RAD_ITS ---
STUDY: X-RAY - PELVIS AND RIGHT HIP REASON FOR EXAM: Female, 83 years old. RIGHT GRION PAIN TECHNIQUE: 3 views of the pelvis and hip. COMPARISON: 09/12/2022 FINDINGS: There is a non-specific bowel gas pattern. Normal visualized soft tissue structures. Normal bilateral iliac wings, sacroiliac joints and visualized sacrum. Normal bilateral superior and inferior pubic rami. Normal pubic symphysis. Normal bilateral ischial tuberosities. Status post arthroplasty. The prosthesis appears located. No ostial lysis to suggest loosening.. RAD/HIP, UNI W/ Pelvis 2-3 Views IMPRESSION: Normal x-ray examination of the pelvis and hip after arthroplasty. Electronically Signed: Dashawn Mcgee MD at 9:49 EDT ,
[2024-05-29 18:12] LABS: Absolute Lymphocyte Count 2.94 X10^3/uL (0.83-4.51); Absolute Neutrophil Count 5.5 X10^3/uL (2.0-7.7); Basophil# 0.04 X10^3/uL; Basophil% 0.4 % (0-1); Eosinophil# 0.19 X10^3/uL; Hematocrit 36.2 % (37-47); Hemoglobin 11.3 g/dL (12.0-15.0); Lymphocyte # 2.94 X10^3/ul (0.83-4.51); Lymphocyte % 30.7 % (19-41); Mean Corp Hgb Conc 31.2 g/dL (32-36); Mean Corpuscular Hgb 28.7 pg (27.0-32.0); Mean Corpuscular Volume 91.9 fL (81-99); Mean Platelet Vol. 11.9 fl (6.2-12.0); Monocyte# 0.88 X10^3/uL; Monocyte% 9.2 % (0-10); NRBC Flagged by Analyzer 0 % (0-5); Neutrophil % 57.5 % (47-70); Platelet Count 199 K/mm3 (150-450); RBC Distribution Width CV 13.7 % (11.6-14.6); RBC Distribution Width SD 46.3 fl (35.1-43.9); Red Blood Count 3.94 M/mm3 (4.2-5.4); White Blood Count 9.6 K/mm3 (4.4-11.0)
[2024-05-29 19:07] LABS: Hemoglobin A1c 12.5 % (3.8-5.6)
[2024-05-29 19:19] LABS: ALB/GLOB Ratio 0.7 RATIO (0.9-2.4); AST(SGOT) 21 U/L (15-37); Alanine Aminotransfer ALT/SGPT 23 U/L (13-56); Albumin, Serum 2.8 g/dL (3.2-5.0); Alkaline Phosphatase 78 U/L (45-117); Anion Gap 4 (5-15); BUN 25 mg/dL (7-18); Calcium,Total 9.3 mg/dL (8.5-10.1); Chloride 102 mmol/L (98-107); Creatinine, Serum 1.39 mg/dL (0.55-1.02); EST Glomerular Filtration Rate 38 mL/min (>60); Est Glom Filt Rate - Afr Amer 47 mL/min (>60); Globulin 4.1 g/dL (2.2-4.2); Glucose 341 mg/dL (74-106); Potassium 4.4 mmol/L (3.5-5.1); Protein, Total 6.9 g/dL (6.4-8.2); Sodium Level 134 mmol/L (136-145)
== END | disposition home or self-care (01) ==
PROVIDERS: PCP Family Medicine Geriatric Medicine; Referring Provider Family Medicine Geriatric Medicine; Visit Provider Family Medicine Geriatric Medicine
DX: R10.31 Right lower quadrant pain (principal); E11.65 Type 2 diabetes mellitus with hyperglycemia; R53.83 Other fatigue
CPT/HCPCS: 36415; 73502; 74177; 80053; 83036; 85025; Q9967

== ENCOUNTER → 2024-09-26 | Outpatient (CLI) | payer MEDICARE, MEDICAID, SELFPAY ==
[2024-09-26 10:58] LABS: Absolute Lymphocyte Count 2.16 X10^3/uL (0.83-4.51); Absolute Neutrophil Count 6.1 X10^3/uL (2.0-7.7); Basophil# 0.04 X10^3/uL; Basophil% 0.4 % (0-1); Eosinophil# 0.27 X10^3/uL; Eosinophils% 2.9 % (0-5); Hematocrit 35.9 % (37-47); Hemoglobin 11.1 g/dL (12.0-15.0); Lymphocyte # 2.16 X10^3/ul (0.83-4.51); Lymphocyte % 23.1 % (19-41); Mean Corp Hgb Conc 30.9 g/dL (32-36); Mean Corpuscular Hgb 28.2 pg (27.0-32.0); Mean Corpuscular Volume 91.3 fL (81-99); Monocyte# 0.73 X10^3/uL; Monocyte% 7.8 % (0-10); NRBC Flagged by Analyzer 0 % (0-5); Neutrophil # 6.11 X10^3/uL (2.7-7.7); Neutrophil % 65.4 % (47-70); Platelet Count 262 K/mm3 (150-450); RBC Distribution Width SD 50.5 fl (35.1-43.9); Red Blood Count 3.93 M/mm3 (4.2-5.4); White Blood Count 9.4 K/mm3 (4.4-11.0)
[2024-09-26 11:20] LABS: Vitamin D,25 Hydroxy 15.1 ng/mL
[2024-09-26 11:28] LABS: ALB/GLOB Ratio 0.7 RATIO (0.9-2.4); AST(SGOT) 36 U/L (15-37); Alanine Aminotransfer ALT/SGPT 28 U/L (13-56); Albumin, Serum 2.8 g/dL (3.2-5.0); Alkaline Phosphatase 69 U/L (45-117); Anion Gap 5 (5-15); BUN 29 mg/dL (7-18); BUN/Creat Ratio 22.3 RATIO (10-20); Calcium,Total 8.9 mg/dL (8.5-10.1); Chloride 110 mmol/L (98-107); Cholesterol 86 mg/dL (200); EST Glomerular Filtration Rate 42 mL/min (>60); Est Glom Filt Rate - Afr Amer 50 mL/min (>60); Globulin 3.9 g/dL (2.2-4.2); Glucose 300 mg/dL (74-106); High Density Lipoprotein 61 mg/dL; Potassium 4.4 mmol/L (3.5-5.1); Protein, Total 6.7 g/dL (6.4-8.2); Sodium Level 141 mmol/L (136-145); Thyroid Stim Hormone (TSH) 0.976 uIU/mL (0.358-3.740); Triglycerides 129 mg/dL; Very Low Density Lipoprotein 26 mg/dL (5-40)
[2024-09-26 11:46] LABS: Hemoglobin A1c 8.9 % (3.8-5.6)
== END | disposition home or self-care (01) ==
LOC: POLAB3 10:43
PROVIDERS: PCP Family Medicine Geriatric Medicine; Visit Provider Family Medicine Geriatric Medicine
DX: E78.5 Hyperlipidemia, unspecified (principal); E11.65 Type 2 diabetes mellitus with hyperglycemia; R53.83 Other fatigue; E55.9 Vitamin D deficiency, unspecified
CPT/HCPCS: 36415; 80053; 80061; 82306; 83036; 84443; 85025

== ENCOUNTER → 2025-01-08 | Outpatient (CLI) | payer MEDICARE, MEDICAID, SELFPAY ==
--- NOTE | 2025-01-08 16:50 | RAD_ITS ---
PROCEDURE: PELVIS 1 OR 2 VIEWS REASON FOR EXAM: Blood in stool TECHNIQUE: 1 view(s) of the pelvis. COMPARISON: None FINDINGS: No fracture. No suspicious bone lesion. Bilateral hip arthroplasties with heterotopic bone formation in the greater trochanters, [id number]. Moderate degenerative changes in lower lumbar spine and sacroiliac joints. Normal alignment at the hips and sacroiliac joints. Soft tissues are unremarkable. RAD/Pelvis 1 or 2 Views IMPRESSION: 1. Bilateral hip arthroplasties with no evidence of hardware failure. 2. Degenerative changes throughout the pelvis. Reading Location: [facility]
[2025-01-08 17:29] LABS: Absolute Lymphocyte Count 2.89 X10^3/uL (0.83-4.51); Absolute Neutrophil Count 6.7 X10^3/uL (2.0-7.7); Basophil# 0.05 X10^3/uL; Basophil% 0.5 % (0-1); Eosinophil# 0.34 X10^3/uL; Eosinophils% 3.1 % (0-5); Hemoglobin 11.3 g/dL (12.0-15.0); Lymphocyte # 2.89 X10^3/ul (0.83-4.51); Lymphocyte % 26.4 % (19-41); Mean Corp Hgb Conc 30.5 g/dL (32-36); Mean Corpuscular Hgb 27.9 pg (27.0-32.0); Mean Corpuscular Volume 91.4 fL (81-99); Mean Platelet Vol. 12.4 fl (6.2-12.0); Monocyte% 8.2 % (0-10); NRBC Flagged by Analyzer 0 % (0-5); Neutrophil # 6.72 X10^3/uL (2.7-7.7); Neutrophil % 61.4 % (47-70); Platelet Count 231 K/mm3 (150-450); RBC Distribution Width CV 16.8 % (11.6-14.6); RBC Distribution Width SD 56.6 fl (35.1-43.9); Red Blood Count 4.05 M/mm3 (4.2-5.4); White Blood Count 10.9 K/mm3 (4.4-11.0)
[2025-01-08 17:38] LABS: Anion Gap 2 (5-15); BUN 25 mg/dL (7-18); Calcium,Total 9.2 mg/dL (8.5-10.1); Chloride 109 mmol/L (98-107); Creatinine, Serum 1.19 mg/dL (0.55-1.02); EST Glomerular Filtration Rate 46 mL/min (>60); Est Glom Filt Rate - Afr Amer 56 mL/min (>60); Glucose 144 mg/dL (74-106); Potassium 4.2 mmol/L (3.5-5.1); Sodium Level 140 mmol/L (136-145)
[2025-01-08 17:45] LABS: Hemoglobin A1c 8.8 % (3.8-5.6)
== END | disposition home or self-care (01) ==
LOC: RAD 16:44
PROVIDERS: PCP Family Medicine Geriatric Medicine; Referring Provider Family Medicine Geriatric Medicine; Visit Provider Family Medicine Geriatric Medicine
DX: K92.1 Melena (principal); E11.65 Type 2 diabetes mellitus with hyperglycemia; E11.22 Type 2 diabetes mellitus with diabetic chronic kidney disease; N18.32 Chronic kidney disease, stage 3b; R31.9 Hematuria, unspecified
CPT/HCPCS: 36415; 72170; 80048; 83036; 85025

== ENCOUNTER → 2025-01-09 08:20 | Outpatient (REF) | payer MEDICARE, MEDICAID, SELFPAY ==
[2025-01-10 08:50] LABS: Mucous, Urine 0 SEEN /hpf (<or=2+)
[2025-01-10 09:14] LABS: Color, Urine Yellow (Yellow); Glucose, Dipstick Normal (Normal); Ketone-Dipstick Negative (Negative); Leukocyte Esterase-Dipstick 100 /ul (Negative); Nitrite-Dipstick Negative (Negative); Occult Blood-Urine 250 /ul (Negative); Protein-Dipstick 100 mg/dl (Negative); Specific Gravity, Urine 1.015 (1.002-1.030); Urine Bilirubin Dipstick Negative (Negative); Urine Clarity Cloudy (Clear); Urine Urobilinogen Normal (Normal)
[2025-01-10 09:26] LABS: Red Blood Cells-Urine 50-100 SEEN /hpf (0-5); White Blood Cells 50-100 SEEN /hpf (0-5)
[2025-01-10 09:27] LABS: Bacteria 3+ /hpf (None Seen); Squamous Epithelial Cells - UA 0-5 SEEN /hpf (5-10)
== END ==
LOC: OLS.SWAL 08:20
PROVIDERS: PCP Family Medicine Geriatric Medicine; Visit Provider Family Medicine Geriatric Medicine
DX: R31.9 Hematuria, unspecified (principal); K92.1 Melena
CPT/HCPCS: 81001; 82274; 87077; 87086; 87088; 87186

== ENCOUNTER → 2025-01-14 | Outpatient (CLI) | payer MEDICARE, MEDICAID, SELFPAY ==
--- NOTE | 2025-01-14 14:23 | US_ITS ---
PROCEDURE: PELVIC (NON ) REASON FOR EXAM: Postmenopausal bleeding. TECHNIQUE: Transabdominal pelvic ultrasound COMPARISON: None. FINDINGS: Measurements: Uterus: 8.6 cm x 5.2 cm x 4.5 cm with a volume of 105.8 mL Endometrial Thickness: 6.6 mm. This is thickened. Right Ovary: Nonvisualized. Left Ovary: Nonvisualized. Uterus: Normal size, myometrial echotexture, and contour. Endometrium: The endometrium is thickened. Right ovary: Nonvisualized Left ovary: Nonvisualized No large pelvic mass identified. US/Pelvic (Non ) IMPRESSION: Endometrial thickening measuring 6.6 mm. Clinical correlation recommended. Reading Location: [facility]
== END | disposition home or self-care (01) ==
LOC: US 14:22
PROVIDERS: PCP Family Medicine Geriatric Medicine; Referring Provider Family Medicine Geriatric Medicine; Visit Provider Family Medicine Geriatric Medicine
DX: N95.0 Postmenopausal bleeding (principal)
CPT/HCPCS: 76856

== ENCOUNTER → 2025-03-22 15:58 | Outpatient (REF) | payer MEDICARE, MEDICAID, SELFPAY ==
[2025-03-22 16:20] LABS: Color, Urine Straw (Yellow); Glucose, Dipstick 50 mg/dl (Normal); Ketone-Dipstick Negative (Negative); Leukocyte Esterase-Dipstick 500 /ul (Negative); Nitrite-Dipstick Positive (Negative); Occult Blood-Urine 25 /ul (Negative); Protein-Dipstick 100 mg/dl (Negative); Specific Gravity, Urine 1.015 (1.002-1.030); Urine Bilirubin Dipstick Negative (Negative); Urine Clarity Cloudy (Clear); Urine Urobilinogen Normal (Normal); Urine pH 6.5 (5.0 - 8.0)
== END ==
LOC: OLS.SWAL 15:58
PROVIDERS: PCP Family Medicine Geriatric Medicine; Visit Provider Family Medicine Geriatric Medicine
DX: N39.0 Urinary tract infection, site not specified (principal)
CPT/HCPCS: 81002; 87077; 87086; 87088; 87186

== ENCOUNTER → 2025-03-27 | Outpatient (CLI) | payer MEDICARE, MEDICAID, SELFPAY ==
[2025-03-27 12:28] LABS: Absolute Lymphocyte Count 2.25 X10^3/uL (0.83-4.51); Absolute Neutrophil Count 6.6 X10^3/uL (2.0-7.7); Basophil# 0.05 X10^3/uL; Basophil% 0.5 % (0-1); Eosinophil# 0.27 X10^3/uL; Eosinophils% 2.7 % (0-5); Hematocrit 37.6 % (37-47); Hemoglobin 11.6 g/dL (12.0-15.0); Lymphocyte # 2.25 X10^3/ul (0.83-4.51); Lymphocyte % 22.6 % (19-41); Mean Corp Hgb Conc 30.9 g/dL (32-36); Mean Corpuscular Hgb 28.2 pg (27.0-32.0); Mean Corpuscular Volume 91.3 fL (81-99); Mean Platelet Vol. 12.4 fl (6.2-12.0); Monocyte# 0.75 X10^3/uL; Monocyte% 7.5 % (0-10); NRBC Flagged by Analyzer 0 % (0-5); Neutrophil # 6.57 X10^3/uL (2.7-7.7); Neutrophil % 66.1 % (47-70); Platelet Count 250 K/mm3 (150-450); RBC Distribution Width CV 15.9 % (11.6-14.6); RBC Distribution Width SD 52.9 fl (35.1-43.9); Red Blood Count 4.12 M/mm3 (4.2-5.4)
[2025-03-27 12:53] LABS: ALB/GLOB Ratio 1.1 RATIO (0.9-2.4); AST(SGOT) 19 U/L (<=31); Alanine Aminotransfer ALT/SGPT 12 U/L (<=34); Albumin, Serum 3.5 g/dL (3.4-4.8); Alkaline Phosphatase 86 U/L (35-104); Anion Gap 9 (5-15); BUN 31 mg/dL (4-19); BUN/Creat Ratio 24.8 RATIO (10-20); Calcium,Total 9.2 mg/dL (7.6-11.0); Carbon Dioxide 23.7 mmol/L (21.0-32.0); Chloride 110 mmol/L (98-108); Cholesterol 95 mg/dL (<=200); Creatinine, Serum 1.25 mg/dL (0.70-1.20); EST Glomerular Filtration Rate 43 (>60); Globulin 3.1 g/dL (2.2-4.2); Glucose 164 mg/dL (70-99); High Density Lipoprotein 57 mg/dL; Low Density Lipoprotein Calc. 17 mg/dL; Potassium 4.6 mmol/L (3.3-5.1); Protein, Total 6.6 g/dL (5.9-8.4); Sodium Level 143 mmol/L (133-145); Total Bilirubin 0.23 mg/dL (0.00-1.30); Triglycerides 109 mg/dL; Very Low Density Lipoprotein 22 mg/dL (5-40); cholesterol:hdl ratio screen 1.68
[2025-03-27 12:59] LABS: Hemoglobin A1c 10.9 % (<=5.6)
[2025-03-27 13:20] LABS: Thyroid Stim Hormone (TSH) 0.963 uIU/mL (0.300-4.200)
== END | disposition home or self-care (01) ==
LOC: LAB 11:13
PROVIDERS: PCP Family Medicine Geriatric Medicine; Referring Provider Family Medicine Geriatric Medicine; Visit Provider Family Medicine Geriatric Medicine
DX: E11.65 Type 2 diabetes mellitus with hyperglycemia (principal); R53.83 Other fatigue; E55.9 Vitamin D deficiency, unspecified; E78.5 Hyperlipidemia, unspecified
CPT/HCPCS: 36415; 80053; 80061; 82306; 83036; 84443; 85025

== ENCOUNTER → 2025-05-14 | Outpatient (CLI) | payer MEDICARE, MEDICAID, SELFPAY ==
[2025-05-14 12:39] LABS: Absolute Lymphocyte Count 2.01 X10^3/uL (0.83-4.51); Absolute Neutrophil Count 6.6 X10^3/uL (2.0-7.7); Basophil# 0.02 X10^3/uL; Basophil% 0.2 % (0-1); Eosinophil# 0.19 X10^3/uL; Hematocrit 36.8 % (37-47); Hemoglobin 11.5 g/dL (12.0-15.0); Lymphocyte # 2.01 X10^3/ul (0.83-4.51); Lymphocyte % 21.1 % (19-41); Mean Corp Hgb Conc 31.3 g/dL (32-36); Mean Corpuscular Hgb 28.9 pg (27.0-32.0); Mean Corpuscular Volume 92.5 fL (81-99); Mean Platelet Vol. 12.9 fl (6.2-12.0); Monocyte# 0.73 X10^3/uL; Monocyte% 7.7 % (0-10); NRBC Flagged by Analyzer 0 % (0-5); Neutrophil # 6.56 X10^3/uL (2.7-7.7); Neutrophil % 68.7 % (47-70); Platelet Count 223 K/mm3 (150-450); RBC Distribution Width CV 15.8 % (11.6-14.6); RBC Distribution Width SD 53.8 fl (35.1-43.9); Red Blood Count 3.98 M/mm3 (4.2-5.4); White Blood Count 9.5 K/mm3 (4.4-11.0)
[2025-05-14 12:41] LABS: Color, Urine Yellow (Yellow); Glucose, Dipstick 250 mg/dl (Normal); Ketone-Dipstick Negative (Negative); Leukocyte Esterase-Dipstick Negative /ul (Negative); Nitrite-Dipstick Negative (Negative); Occult Blood-Urine 50 /ul (Negative); Protein-Dipstick 100 mg/dl (Negative); Urine Bilirubin Dipstick Negative (Negative); Urine Clarity Clear (Clear); Urine Urobilinogen Normal (Normal)
[2025-05-14 12:54] LABS: Hemoglobin A1c 9.8 % (<=5.6)
[2025-05-14 13:33] LABS: AST(SGOT) 28 U/L (<=31); Alanine Aminotransfer ALT/SGPT 13 U/L (<=34); Albumin, Serum 3.2 g/dL (3.4-4.8); Alkaline Phosphatase 78 U/L (35-104); Anion Gap 11 (5-15); BUN 26 mg/dL (4-19); BUN/Creat Ratio 19.2 RATIO (10-20); Calcium,Total 8.9 mg/dL (7.6-11.0); Carbon Dioxide 21.5 mmol/L (21.0-32.0); Chloride 109 mmol/L (98-108); Creatinine, Serum 1.34 mg/dL (0.70-1.20); EST Glomerular Filtration Rate 39 (>60); Globulin 3.2 g/dL (2.2-4.2); Glucose 344 mg/dL (70-99); Potassium 4.7 mmol/L (3.3-5.1); Protein, Total 6.4 g/dL (5.9-8.4); Sodium Level 142 mmol/L (133-145); Total Bilirubin 0.23 mg/dL (0.00-1.30)
== END | disposition home or self-care (01) ==
LOC: LAB 11:17
PROVIDERS: PCP Family Medicine Geriatric Medicine; Referring Provider Family Medicine Geriatric Medicine; Visit Provider Family Medicine Geriatric Medicine
DX: E11.65 Type 2 diabetes mellitus with hyperglycemia (principal); N39.0 Urinary tract infection, site not specified
CPT/HCPCS: 36415; 80053; 81002; 83036; 85025; 87086; 87088